=== PATIENT | female | born 1950 | race African-American/Black ===

== ENCOUNTER 2017-11-03 11:07 | Inpatient (IN) | payer MEDICAID, MEDICARE ==
[~2017-11-03] VITALS: Ht 167.6 cm; Wt 126.4 kg
--- NOTE | 2017-11-03 11:19 | Emergency Room Report ---
History of Present Illness General Chief Complaint: Chest Pain Source: Patient, Family Member, EMS Present Illness HPI Patient was in transport from [place] to nursing facility close by to this hospital patient complaint of midsternal chest pain At this time patient appears mildly lethargic and slow to respond however is more interactive with family Patient was given nitroglycerin by paramedics Denies any vomiting or diarrhea history of present illness otherwise Fairly limited as the patient herself is not able to provide any clear history Daughter is here and reports the patient does have history of CHF No obvious fevers recently Allergies: Coded Allergies: CEFEPIME (Unverified Allergy, Unknown, 11/03/17) LEVOFLOXACIN (Unverified Allergy, Unknown, 11/03/17) PENICILLINS (Unverified Allergy, Unknown, 11/03/17) Patient History Limited by: medical condition Past Medical History: see triage record Pertinent Family History: none Reviewed Nursing Documentation: PMH: Agreed; PSxH: Agreed Nursing Documentation-PMH Past Medical History: No History, Except For Hx Hypertension: Yes Hx Asthma: No - OBESITY Hx COPD: Yes Hx Cancer: Yes - RT BREAST Hx Gastrointestinal Problems: Yes - GERD Hx Dialysis: No - HYPERPARATHYROIDISM Hx Cerebrovascular Accident: Yes - CEREBRAL ANEURYSM, LEFT SIDE WEAKNESS Hx Seizures: No - ENCEPHALOPATHY Review of Systems All Other Systems: limited - Other than the ones mentioned in the history of present illness all others are reviewed however they do stay limited due to the patient's mental status Physical Exam Vital Signs Date Time Temp Pulse Resp B/P (MAP) Pulse Ox O2 Delivery O2 Flow Rate FiO2 11/03/17 11:01 98.9 110 20 113/68 99 Nasal Cannula 99.0 Sp02 EP Interpretation: reviewed, normal General Appearance: mild distress - Appears somet confused Head: normocephalic, atraumatic Eyes: bilateral eye PERRL, bilateral eye EOMI ENT: normal pharynx, no angioedema Neck: full range of motion, supple Respiratory: crackles - In both lower lobes Cardiovascular #1: regular rate, rhythm, other - Mild dependent edema bilaterally Gastrointestinal: other - Patient is obese, no obvious reproducble abdominal pain however difficult secondary to body habitus Musculoskeletal: other - Patient does not follow all command, however moves both upper extremities w Neurologic: responsive, other - Difficult musculoskeletaexam, patient is awake and verbal with family, however appear sluggish compared to her usual Skin: no rash Lymphatic: no adenopathy Medical Decision Making Diagnostic Impression: Primary Impression: ACS (acute coronary syndrome) ER Course Patient is a fairly complex patient with multiple differential to consideration including but not limited to cardiac cardiopulmonary and vascular emergencies Patient's baseline blood work appear appropriate Troponin is negative X-ray shows some mild crowding in the lower lobes uncertain acuity Patient has done better with breathing treatments at this time requires further inpatient care Labs Test 11/03/17 11:25 White Blood Count 7.8 K/UL (4.8-10.8) Red Blood Count 4.06 M/UL (4.20-5.40) Hemoglobin 11.6 G/DL (12.0-16.0) Hematocrit 36.0 % (37.0-47.0) Mean Corpuscular Volume 89 FL (80-99) Mean Corpuscular Hemoglobin 28.7 PG (27.0-31.0) Mean Corpuscular Hemoglobin Concent 32.3 G/DL (32.0-36.0) Red Cell Distribution Width 17.2 % (11.6-14.8) Platelet Count 430 K/UL (150-450) Mean Platelet Volume 6.4 FL (6.5-10.1) Neutrophils (%) (Auto) 57.5 % (45.0-75.0) Lymphocytes (%) (Auto) 27.6 % (20.0-45.0) Monocytes (%) (Auto) 11.3 % (1.0-10.0) Eosinophils (%) (Auto) 2.0 % (0.0-3.0) Basophils (%) (Auto) 1.6 % (0.0-2.0) Sodium Level 138 MMOL/L (136-145) Potassium Level 4.3 MMOL/L (3.5-5.1) Chloride Level 103 MMOL/L (98-107) Carbon Dioxide Level 25 MMOL/L (21-32) Anion Gap 10 mmol/L (5-15) Blood Urea Nitrogen 7 mg/dL (7-18) Creatinine 0.5 MG/DL (0.55-1.30) Estimat Glomerular Filtration Rate > 60 mL/min (>60) Glucose Level 92 MG/DL (74-106) Calcium Level 8.6 MG/DL (8.5-10.1) Total Bilirubin 0.8 MG/DL (0.2-1.0) Aspartate Amino Transf (AST/SGOT) 33 U/L (15-37) Alanine Aminotransferase (ALT/SGPT) 26 U/L (12-78) Alkaline Phosphatase 110 U/L (46-116) Total Creatine Kinase 54 U/L (26-308) Creatine Kinase MB < 0.5 NG/ML (0.0-3.6) Creatine Kinase MB Relative Index 0.9 Troponin I 0.000 ng/mL (0.000-0.056) Pro-B-Type Natriuretic Peptide 205 pg/mL (0-125) Total Protein 7.0 G/DL (6.4-8.2) Albumin 2.0 G/DL (3.4-5.0) Globulin 5.0 g/dL Albumin/Globulin Ratio 0.4 (1.0-2.7) Lipase 74 U/L (73-393) EKG Diagnostic Results Rate: normal Rhythm: NSR ST Segments: no acute changes Rhythm Strip Diag. Results EP Interpretation: yes Rate: 78 Rhythm: NSR, no PVC's, no ectopy Chest X-Ray Diagnostic Results Chest X-Ray Diagnostic Results : Chest X-Ray Ordered: Yes Indication: Chest Pain EP Interpretation: Yes Interpretation: no consolidation, no pneumothorax, other - Mild bilateral lower lobe atelectasis Impression: No acute disease Electronically Signed by: Aurora Hensley DO Last Vital Signs Date Time Temp Pulse Resp B/P (MAP) Pulse Ox O2 Delivery O2 Flow Rate FiO2 11/03/17 11:01 98.9 110 20 113/68 99 Nasal Cannula 99.0 Status: improved Disposition: ADMITTED INPATIENT Condition: Serious Aurora Hensley DO Nov 03, 2017 11:19
[2017-11-03] MEDS ORDERED: Albuterol ud Inhalation HHN ONE ×2 (11:30→13:00)
[2017-11-03 11:46] VITALS: BP 116/67
[2017-11-03 11:56] LABS: BASOPHILS % (AUTO) 1.6 % (0.0-2.0); HEMOGLOBIN 11.6 G/DL (12.0-16.0); LYMPHOCYTES % (AUTO) 27.6 % (20.0-45.0); MEAN CORPUSCULAR VOLUME 89 FL (80-99); MONOCYTES % (AUTO) 11.3 % (1.0-10.0); NEUTROPHILS % (AUTO) 57.5 % (45.0-75.0); PLATELET COUNT 430 K/UL (150-450); RED BLOOD COUNT 4.06 M/UL (4.20-5.40); RED CELL DISTRIBUTION WIDTH 17.2 % (11.6-14.8); WHITE BLOOD COUNT 7.8 K/UL (4.8-10.8)
[2017-11-03 12:11] LABS: ANION GAP 10 mmol/L (5-15); BLOOD UREA NITROGEN 7 mg/dL (7-18); CALCIUM 8.6 MG/DL (8.5-10.1); CARBON DIOXIDE 25 MMOL/L (21-32); CHLORIDE 103 MMOL/L (98-107); CREATININE 0.5 MG/DL (0.55-1.30); POTASSIUM 4.3 MMOL/L (3.5-5.1); SODIUM 138 MMOL/L (136-145)
[2017-11-03 12:26] LABS: ALANINE AMINOTRANSFERASE 26 U/L (12-78); ALBUMIN/GLOBULIN RATIO 0.4 (1.0-2.7); ALKALINE PHOSPHATASE 110 U/L (46-116); ASPARTATE AMINO TRANSFERASE 33 U/L (15-37); BILIRUBIN,TOTAL 0.8 MG/DL (0.2-1.0); CKMB < 0.5 NG/ML (0.0-3.6); CREATINE KINASE 54 U/L (26-308)
[2017-11-03] MEDS ORDERED: ASPIRIN EC325 MG ORAL (12:33)
[2017-11-03] MEDS ORDERED: ACETAMINOPHEN325 M1 ORAL (12:33)
[2017-11-03] MEDS ORDERED: VITAMIN D1000 UNI1 ORAL (12:33)
[2017-11-03] MEDS ORDERED: BISACODYL10 M1 RC (12:33)
[2017-11-03] MEDS ORDERED: CYMBALTA60 MG ORAL (12:33)
[2017-11-03] MEDS ORDERED: CARVEDILOL6.25 MG ORAL (12:33)
[2017-11-03] MEDS ORDERED: AMLODIPINE BESYL5 MG ORAL (12:33)
[2017-11-03] MEDS ORDERED: CLONIDINE1 EAC1 TD (12:33)
[2017-11-03] MEDS ORDERED: SENSIPAR30 MG ORAL (12:33)
[2017-11-03] MEDS ORDERED: AMANTADINE100 M2 ORAL (12:33)
[2017-11-03] MEDS ORDERED: MAG-OXIDE400 M1 PO (12:41)
[2017-11-03] MEDS ORDERED: PNEUMOVAX25 MCG/0.5 IJ (12:41)
[2017-11-03] MEDS ORDERED: SENNA-DOCUSATE1 EACH PO (12:41)
[2017-11-03] MEDS ORDERED: ZOFRAN4 M1 ORAL (12:41)
[2017-11-03] MEDS ORDERED: LACTULOSE10 GM/153 PO (12:41)
[2017-11-03] MEDS ORDERED: PROMETHAZINE-D118 ML ORAL (12:41)
[2017-11-03] MEDS ORDERED: VIMPAT50 MG PO (12:41)
[2017-11-03] MEDS ORDERED: PREVNAR 13 SYR0.5 ML IM (12:41)
[2017-11-03] MEDS ORDERED: LEVETIRACETAM500 M1 ORAL (12:41)
[2017-11-03] MEDS ORDERED: FAMOTIDINE20 MG ORAL (12:41)
[2017-11-03] MEDS ORDERED: HEPARIN SO5000 UNIT2 SUBQ (12:41)
[2017-11-03] MEDS ORDERED: MONTELUKAST SOD10 MG ORAL (12:41)
[2017-11-03] MEDS ORDERED: FLUZONE HI180 MCG/08 IM (12:41)
[2017-11-03] MEDS ORDERED: NORCO 10-325 T1 EACH ORAL (12:41)
[2017-11-03 13:06] VITALS: BP 126/74
[2017-11-03] MEDS ORDERED: Albuterol ud Inhalation ONE (13:20)
[2017-11-03] MEDS ORDERED: Vancomycin 1.5gm/D5W 250ml 250 ML IVPB ONE (14:15)
[2017-11-03] MEDS ORDERED: Aztreonam Inj 2 GM in D5W 110 ML IVPB ONE (14:15)
[2017-11-03] MEDS ORDERED: Azithromycin 500 MG in D5W 275 ML IVPB ONE (14:15)
[2017-11-03 15:27] VITALS: BP 109/82
[2017-11-03 16:00] VITALS: BP 115/60
[2017-11-03] MEDS ORDERED: Milk of Magnesia 30ml Ud ORAL PRN (16:25)
[2017-11-03] MEDS: Norco 5mg/325mg tab ORAL PRN (17:47)
[2017-11-03] MEDS: Azithromycin 250 MG in D5W 275 ML IV SCH (17:47)
[2017-11-03] MEDS: Albuterol/Ipratropium 3ml neb HHN SCH (19:37)
--- NOTE | 2017-11-03 19:45 | Consultation ---
DATE OF CONSULTATION: 11/03/2017 CARDIOLOGY CONSULTATION REQUESTING PHYSICIAN: Kenroy Mcgrath M.D. REASON FOR CONSULTATION: Chest pain. HISTORY OF PRESENT ILLNESS: This is an female, age 67, who was recently transported from [place] where she resides at a [facility] facility to live closer to her family here. On arrival, she complained of mid substernal chest pain, increasing cough, and shortness of breath. She has been somewhat more lethargic than her usual, but states she has been fatigued from the transport. She was given nitroglycerin by paramedics and did improve. I have been asked to assist with further cardiovascular care. History is obtained from the patient's family members. She apparently suffered a fall and head trauma incident about two years ago. At that time, she developed a subarachnoid bleed and apparently was noted to have an aneurysm that was partially repaired that resulted in left-sided weakness, progressive functional decline, and notably the patient has not walked for almost two years. Subsequently, the patient was noted to have right breast cancer and underwent mastectomy with lymph node dissections where up to 14 lymph nodes were found positive. The patient was treated with radiation, but not chemotherapy. She was to undergo repeat CT imaging in Oncology evaluation in the next month. PAST MEDICAL HISTORY: Further notable for hyperparathyroidism, hypertension, history of congestive heart failure, osteoarthritis, status post left total knee replacement, status post right hip replacement, and dysphagia due to loss of dentures. COPD. MEDICATIONS: Prior to admission, have been reviewed and reconciled. ALLERGIES: Include penicillin, Levaquin, and cefepime. SOCIAL HISTORY: She is a former smoker, greater than 30-pack years. FAMILY HISTORY: Noncontributory. REVIEW OF SYSTEMS: A 10-point review of systems performed. All pertinent data has been outlined in detail above. PHYSICAL EXAMINATION: GENERAL: The patient is well developed, well kempt, in no acute distress. VITAL SIGNS: Blood pressure 113/68, pulse 110, respirations 20, and afebrile. HEENT: Conjunctivae are pink. Sclerae are anicteric. Oropharynx clear. Edentulous gums. NECK: Supple. No adenopathy. LUNGS: With coarse breath sounds. Rhonchi. CARDIAC: Regular rhythm and rate. Distant S1 and S2. No murmur. BREASTS: Mastectomy scar clean and dry. ABDOMEN: Obese and soft with no focal tenderness or masses. EXTREMITIES: No edema. Left knee scar is noted, but there are nonpitting changes of the lower extremity seen. SKIN: Intact. NEUROLOGIC: Reveals severe weakness of the lower extremities. Mild left greater than right weakness. Otherwise, speech is fluent. DIAGNOSTIC DATA: Chest x-ray, mild lower lobe interstitial changes. Troponin negative. Chemistry panel and CBC within normal limits. EKG revealed sinus rhythm, nonspecific ST-T wave changes. IMPRESSION: 1. Possible healthcare-acquired pneumonia. 2. Possible acute coronary syndrome. 3. History of breast cancer status post radiation. 4. Immobility. 5. History of cerebrovascular accident with aneurysm. PLAN: 1. Cardiac monitoring. 2. Serial troponin. 3. Optimize antianginal and antihypertensive regimen. 4. Inhaled bronchodilators. 5. Empiric antibiotics. 6. Venous duplex. 7. CT of the chest. 8. Dysphagia protocol. 9. Further recommendations to follow. Carlos Eduardo Andino M.D. DR: Abdoul JOB#: [id number] CC:
[2017-11-03 20:00] VITALS: BP 113/67
[2017-11-03] MEDS ORDERED: Atorvastatin 20mg tab ORAL SCH (21:00)
[2017-11-03] MEDS: Heparin 5000 units/ml inj SUBQ SCH (22:10)
[2017-11-03] MEDS: Lacosamide 50mg tablet ORAL SCH (23:11)
[2017-11-03] MEDS: Carvedilol 6.25mg Tab ORAL SCH (23:12)
[2017-11-04] VITALS: BP 100/54
[2017-11-04] MEDS: Albuterol/Ipratropium 3ml neb HHN SCH ×4 (00:56→20:37)
[2017-11-04 04:00] VITALS: BP 104/62
[2017-11-04] MEDS: Heparin 5000 units/ml inj SUBQ SCH ×3 (06:25→21:08)
[2017-11-04 08:00] VITALS: BP 115/65
[2017-11-04] MEDS: Carvedilol 6.25mg Tab ORAL SCH ×2 (09:33→21:04)
[2017-11-04] MEDS: DULoxetine 30mg cap ORAL SCH (09:33)
[2017-11-04] MEDS: Lacosamide 50mg tablet ORAL SCH ×2 (09:34→21:05)
[2017-11-04] MEDS: Amantadine 100mg cap ORAL SCH (09:34)
[2017-11-04] MEDS: Sensipar 30mg Tab ORAL SCH (09:34)
--- NOTE | 2017-11-04 09:54 | Diagnostic Imaging Report ---
Indication: Chest pain Technique: One view of the chest Comparison: none Findings: There is atelectasis at the right lateral lung base. Lungs and pleural spaces are otherwise clear. The heart size is normal Impression: No acute process
[2017-11-04] MEDS ORDERED: Vancomycin 1250mg/D5W 250ml IVPB SCH (10:00)
[2017-11-04 10:01] LABS: BASOPHILS % (AUTO) 1.2 % (0.0-2.0); EOSINOPHILS % (AUTO) 1.8 % (0.0-3.0); HEMATOCRIT 31.2 % (37.0-47.0); HEMOGLOBIN 10.5 G/DL (12.0-16.0); LYMPHOCYTES % (AUTO) 16.4 % (20.0-45.0); MEAN CORPUSCULAR VOLUME 88 FL (80-99); MONOCYTES % (AUTO) 10.6 % (1.0-10.0); NEUTROPHILS % (AUTO) 70.1 % (45.0-75.0); PLATELET COUNT 314 K/UL (150-450); RED BLOOD COUNT 3.55 M/UL (4.20-5.40); WHITE BLOOD COUNT 7.4 K/UL (4.8-10.8)
[2017-11-04 11:14] LABS: CHOLESTEROL 88 MG/DL (< 200); CREATINE KINASE 12 U/L (26-308); HDL CHOLESTEROL 49 MG/DL (40-60); TRIGLYCERIDES 76 MG/DL (30-150)
--- NOTE | 2017-11-04 11:15 | History and Physical Report ---
DATE OF ADMISSION: 11/03/2017 CHIEF COMPLAINT: Chest pain. HISTORY OF PRESENT ILLNESS: The patient is a pleasant, unfortunate 67-year-old female. She has prior history of intracranial bleed, stroke, seizure disorder, breast cancer, status post mastectomy, congestive heart failure, and COPD. She recently transferred from [facility] to [place] to be with family members. She has had a complicated past medical history which includes prior history of intracranial bleed and stroke. She was found to have an aneurysm that was coiled. She was diagnosed with breast cancer and underwent right-sided mastectomy. She did have multiple positive nodes and apparently received radiation, but no additional chemotherapy. She developed chest pain and presented to the emergency room. On initial evaluation there, her initial cardiac enzymes were unremarkable. In light of her complicated extensive past medical history, she is now admitted for further evaluation and care. She is currently chest pain-free. She denies any fever or chills. She has had no cough. PAST MEDICAL HISTORY: As above. She has history of seizure disorder, hypertension, history of DVT, sepsis, IVC filter, and hyperparathyroidism. CURRENT MEDICATIONS: Reconciled and reviewed. ALLERGIES: Include penicillin, Levaquin, and cefepime. SOCIAL HISTORY: There is no known history of tobacco, ethanol, or drugs. FAMILY HISTORY: Noncontributory. REVIEW OF SYSTEMS: GENERAL: No fever or chills. HEENT: No headaches or visual changes. CARDIOPULMONARY: Positive chest pain. No shortness of breath. No cough. GASTROINTESTINAL: No nausea or vomiting. GENITOURINARY: No urgency or frequency. MUSCULOSKELETAL: No joint pain or swelling noted. NEUROLOGIC: Positive history of stroke, intracranial bleed, aneurysm, and seizures. PHYSICAL EXAMINATION: VITAL SIGNS: Temperature 98 degrees, pulse 85, respirations 20, and blood pressure 104/62. GENERAL: The patient is a well-developed female, in no apparent distress. She is currently resting. She is easily arousable. NECK: Supple. There are no carotid bruits. HEART: Regular rate and rhythm. LUNGS: Clear. ABDOMEN: Soft, nontender, and nondistended. EXTREMITIES: Without clubbing or cyanosis. There is trace edema noted. She has generalized weakness, left greater than right. LABORATORY AND DIAGNOSTIC DATA: Chest x-ray was clear. Sodium 138, potassium 4.3, chloride 103, bicarbonate 25, BUN 7, and creatinine 0.5. Troponin was negative. Lipase was normal. White count 7, hemoglobin 11, hematocrit 36, and platelet count of 430,000. ASSESSMENT: This is a pleasant female admitted with complaints of chest pain. PROBLEM LIST: 1. Chest pain. 2. History of DVT, status post IVC filter. 3. History of breast cancer. 4. History of brain aneurysm and intracranial bleed. 5. Stroke. 6. Seizure disorder. 7. Hypertension. PLAN: Admit to monitored bed. Serial enzymes and EKGs. Titrate antihypertensive regimen. Followup CT scan. Consider bone scan. Check urinalysis. Continue seizure medications. Cardiology consultation has already been obtained. Kenroy Mcgrath M.D. DR: Earnestine JOB#: [id number] CC:
--- NOTE | 2017-11-04 12:30 | Progress Note ---
DATE: 11/04/2017 CARDIOLOGY PROGRESS NOTE SUBJECTIVE: The patient is uncomfortable and in distress due to poor IV access and repeated attempts at Hep-Lock placement. OBJECTIVE: VITAL SIGNS: She is afebrile, blood pressure 115/65, pulse 94, respiratory rate 20. LUNGS: Diminished breath sounds. No wheezing. HEART: Regular rhythm and rate. Normal S1, S2. ABDOMEN: Soft, obese. EXTREMITIES: With trace edema. LABORATORY AND DIAGNOSTIC DATA: Chest x-ray on admission revealed no acute process. White count 7.4, hemoglobin 10.5, MCV 88. Troponins are negative. Total cholesterol is 88. IMPRESSION AND PLAN: 1. Acute coronary syndrome, now stabilized. 2. Significantly decreased cholesterol levels, on atorvastatin. 3. History of breast cancer. 4. Healthcare-acquired pneumonia, aspiration risk. 5. anemia. PLAN: 1. Decrease atorvastatin dose. 2. Optimize antianginal and antihypertensive regimen. 3. Await CAT scan of the chest. 4. Continue antibiotics and respiratory hygiene. 5. Follow up venous duplex scan results and echocardiogram. 6. Family discussing disposition at this time. Carlos Eduardo Andino M.D. : [place] JOB#: [id number] CC:
[2017-11-04] MEDS: Aspirin Baby 81mg NG SCH (12:45)
[2017-11-04] MEDS ORDERED: Heparin 2000 units/Ns 1000ml INJ ONE (12:53)
[2017-11-04] MEDS ORDERED: Lidocaine 1% Plain 30 ml INJ ONE (12:53)
[2017-11-04] MEDS ORDERED: Tubing IV Secondary IV ONE (12:58)
[2017-11-04] MEDS ORDERED: NS 275ml ONE (12:58)
[2017-11-04] MEDS ORDERED: Vancomycin 1.5 GM/D5W 250ML IVPB SCH (15:00)
--- NOTE | 2017-11-04 15:38 | Diagnostic Imaging Report ---
Indications: Needs long-term IV access Technique: Ultrasound confirms patent compressible left basilic vein. Total sterile technique, including sterile probe cover and sterile gel, hat, mask,, sterile gown, large sterile drape, and preparation with 2% chlorhexidine utilized. Local anesthesia with 1% lidocaine. Under real-time ultrasound guidance, puncture basilic vein using 21-gauge needle, documented and archived, passage 0.018 guidewire under direct fluoroscopy, which was used to determine appropriate catheter length, exchange for 5 Telugu peel-away sheath. 5 Telugu Bard dual-lumen power PICC cut to 45 cm. It was inserted through the peel-away sheath. Peel-away sheath and guidewire removed. Catheter fixed to the skin. Both catheter ports aspirated and flushed. Patient tolerated procedure well, without immediate complication. Digital radiograph documents satisfactory catheter tip position, at the cavoatrial junction. Total fluoroscopy time 0.3 minutes. Total dose area product 9 dGycm2 Impression: Successful placement of left arm PICC under sonographic and fluoroscopic guidance, as described above.
[2017-11-04 16:00] VITALS: BP 131/77
[2017-11-04] MEDS: guaiFENesin 100mg/5ml Liq ud ORAL PRN ×2 (16:36→21:09)
[2017-11-04] MEDS: Vancomycin 1250mg/D5W 250ml IVPB SCH (16:41)
[2017-11-04] MEDS: Azithromycin 250 MG in D5W 275 ML IV SCH (18:34)
[2017-11-04] MEDS: Norco 5mg/325mg tab ORAL PRN (19:17)
[2017-11-04 20:00] VITALS: BP 129/74
[2017-11-04] MEDS: Dyna-Hex 2% Top Sol 2oz TOPIC SCH (21:03)
[2017-11-05] VITALS (7 sets, daily range): BP systolic 96–118; BP diastolic 58–78
[2017-11-05] MEDS: Albuterol/Ipratropium 3ml neb HHN SCH ×4 (01:13→19:36)
[2017-11-05] MEDS: Vancomycin 1250mg/D5W 250ml IVPB SCH ×2 (04:00→16:36)
[2017-11-05] MEDS: Heparin 5000 units/ml inj SUBQ SCH ×3 (05:24→22:52)
[2017-11-05] MEDS: guaiFENesin 100mg/5ml Liq ud ORAL PRN ×2 (05:36→13:13)
--- NOTE | 2017-11-05 05:59 | General Progress Note ---
Assessment/Plan Problem List: (1) CVA (cerebral vascular accident) ICD Codes: I63.9 - Cerebral infarction, unspecified SNOMED: 724302189 (2) DVT (deep vein thrombosis) in ICD Codes: O22.30 - Deep phlebothrombosis in , unspecified trimester; I82.409 - Acute embolism and thrombosis of unspecified deep veins of unspecified lower extremity SNOMED: 03335457, 581383235 (3) Seizure ICD Codes: R56.9 - Unspecified convulsions SNOMED: 27109903 (4) Neuropathy ICD Codes: G62.9 - Polyneuropathy, unspecified SNOMED: 301968758 (5) Functional quadriplegia ICD Codes: R53.2 - Functional quadriplegia SNOMED: 134758159886009 (6) ACS (acute coronary syndrome) ICD Codes: I24.9 - Acute ischemic heart disease, unspecified SNOMED: 812676985 Status: stable, progressing Assessment/Plan pain meds increased video swallow kub to check for ivc filter sz rx Subjective ROS Limited/Unobtainable: No Constitutional: Reports: malaise, weakness HEENT: Reports: no symptoms Cardiovascular: Reports: no symptoms Respiratory: Reports: cough Gastrointestinal/Abdominal: Reports: no symptoms Genitourinary: Reports: no symptoms Neurologic/Psychiatric: Reports: paresthesia Endocrine: Reports: no symptoms Hematologic/Lymphatic: Reports: no symptoms Allergies: Coded Allergies: CEFEPIME (Unverified Allergy, Unknown, 11/03/17) LEVOFLOXACIN (Unverified Allergy, Unknown, 11/03/17) PENICILLINS (Unverified Allergy, Unknown, 11/03/17) All Systems: reviewed and negative except above Subjective no events. c/o cough and congestion. c/o pain in legs. not relieved with norco. pema with chronic dvt. video swallow recommended by speech Objective Last 24 Hour Vital Signs Date Time Temp Pulse Resp B/P (MAP) Pulse Ox O2 Delivery O2 Flow Rate FiO2 11/05/17 04:00 83 11/05/17 04:00 96.2 80 20 110/60 98 96.2 11/05/17 01:23 92 20 99 Nasal Cannula 2.0 28 11/05/17 01:14 80 20 96 Nasal Cannula 2.0 28 11/05/17 00:00 82 11/05/17 00:00 97.9 83 20 105/58 99 97.9 11/04/17 21:04 88 131/77 11/04/17 20:00 91 11/04/17 20:00 97.4 62 19 129/74 96 97.4 11/04/17 19:11 102 24 99 Nasal Cannula 2.0 28 11/04/17 19:08 82 20 96 Nasal Cannula 2.0 28 11/04/17 19:02 Nasal Cannula 2.0 28 11/04/17 19:02 96 Nasal Cannula 2.0 28 11/04/17 16:00 98.1 64 18 131/77 98 98.1 11/04/17 16:00 88 11/04/17 14:10 86 18 99 Nasal Cannula 2.0 28 11/04/17 14:00 87 18 99 Nasal Cannula 2.0 28 11/04/17 12:00 81 11/04/17 09:33 93 115/65 11/04/17 08:00 97.6 93 20 115/65 99 97.6 11/04/17 08:00 Nasal Cannula 2.0 11/04/17 08:00 94 11/04/17 08:00 89 20 98 Nasal Cannula 2.0 28 11/04/17 08:00 Nasal Cannula 2.0 28 11/04/17 08:00 98 Nasal Cannula 2.0 28 Intake and Output 11/04/17 11/05/17 19:00 07:00 Intake Total 800 ml Balance 800 ml Intake Oral 800 ml # Voids 4 # Bowel Movements 2 Laboratory Tests 11/04/17 07:52: White Blood Count 7.4, Red Blood Count 3.55L, Hemoglobin 10.5L, Hematocrit 31.2L , Mean Corpuscular Volume 88, Mean Corpuscular Hemoglobin 29.7, Mean Corpuscular Hemoglobin Concent 33.8, Red Cell Distribution Width 17.0H, Platelet Count 314, Mean Platelet Volume 5.2L, Neutrophils (%) (Auto) 70.1, Lymphocytes (%) (Auto) 16.4L, Monocytes (%) (Auto) 10.6H, Eosinophils (%) (Auto ) 1.8, Basophils (%) (Auto) 1.2, Total Creatine Kinase 12L, Troponin I 0.000, Triglycerides Level 76, Cholesterol Level 88, LDL Cholesterol 27, HDL Cholesterol 49, Cholesterol/HDL Ratio 1.8L, Thyroid Stimulating Hormone (TSH) 1.006 Height (Feet): 5 Height (Inches): 6.00 Weight (Pounds): 278 General Appearance: WD/WN, alert Neck: supple Cardiovascular: regular rhythm Respiratory/Chest: chest wall non-tender, lungs clear, normal breath sounds Abdomen: normal bowel sounds, non tender, soft, no organomegaly Edema: no edema noted Arm (L), no edema noted Arm (R), no edema noted Leg (L), no edema noted Leg (R), no edema noted Pedal (L), no edema noted Pedal (R), no edema noted Generalized Neurologic: food tester II-XII grossly normal KELVIN CHANG Nov 05, 2017 05:59
--- NOTE | 2017-11-05 09:15 | Diagnostic Imaging Report ---
Indication: Deep venous thrombosis, assessment for inferior vena cava filter. Abdominal pain Technique: Supine view of the abdomen Comparison: none Findings: There is a removable inferior vena cava filter in expected position of the infrarenal inferior vena cava. No evidence of fracture or significant tilt. Bowel gas pattern is unremarkable. There is a right hip prosthesis. There are degenerative changes of left hip Impression: Removable inferior vena cava filter is in the expected position No acute process
[2017-11-05] MEDS: Lacosamide 50mg tablet ORAL SCH ×2 (09:20→20:29)
[2017-11-05] MEDS: DULoxetine 30mg cap ORAL SCH (09:20)
[2017-11-05] MEDS: Amantadine 100mg cap ORAL SCH (09:20)
[2017-11-05] MEDS: Aspirin Baby 81mg NG SCH (09:21)
[2017-11-05] MEDS: Carvedilol 6.25mg Tab ORAL SCH ×2 (09:22→20:30)
[2017-11-05] MEDS: Sensipar 30mg Tab ORAL SCH (09:22)
[2017-11-05] MEDS: Norco 5mg/325mg tab ORAL PRN (09:41)
[2017-11-05 11:50] LABS: BASOPHILS % (AUTO) 1.6 % (0.0-2.0); EOSINOPHILS % (AUTO) 1.6 % (0.0-3.0); HEMATOCRIT 31.3 % (37.0-47.0); HEMOGLOBIN 10.3 G/DL (12.0-16.0); LYMPHOCYTES % (AUTO) 17.3 % (20.0-45.0); MEAN CORPUSCULAR VOLUME 90 FL (80-99); MONOCYTES % (AUTO) 11.7 % (1.0-10.0); NEUTROPHILS % (AUTO) 67.8 % (45.0-75.0); PLATELET COUNT 301 K/UL (150-450); RED CELL DISTRIBUTION WIDTH 16.8 % (11.6-14.8); WHITE BLOOD COUNT 6.7 K/UL (4.8-10.8)
[2017-11-05 12:07] LABS: ALANINE AMINOTRANSFERASE 23 U/L (12-78); ALBUMIN 1.7 G/DL (3.4-5.0); ALBUMIN/GLOBULIN RATIO 0.4 (1.0-2.7); ALKALINE PHOSPHATASE 107 U/L (46-116); ANION GAP 6 mmol/L (5-15); ASPARTATE AMINO TRANSFERASE 16 U/L (15-37); BILIRUBIN,TOTAL 0.6 MG/DL (0.2-1.0); BLOOD UREA NITROGEN 4 mg/dL (7-18); CALCIUM 8.1 MG/DL (8.5-10.1); CARBON DIOXIDE 28 MMOL/L (21-32); CHLORIDE 103 MMOL/L (98-107); CREATININE 0.6 MG/DL (0.55-1.30); POTASSIUM 2.9 MMOL/L (3.5-5.1); SODIUM 137 MMOL/L (136-145)
--- NOTE | 2017-11-05 13:51 | Diagnostic Imaging Report ---
Indication: Chest pain, shortness of breath, history of breast carcinoma, history of abnormal recent chest radiograph Technique: Spiral acquisitions obtained through the chest pre- and post-IV contrast administration Multiplanar reconstructions were generated. High-resolution 1 mm thick slices were also reconstructed at 10 mm intervals from the precontrast image set. Total dose length product 1935.77 mGycm. CTDIvol(s) 29.21,27.17 mGy. Radiation dose was minimized using automated exposure in the superior left upper lobe. Some atelectasis is seen in the left costophrenic sulcus. Control Comparison: none Findings: Lungs demonstrate reticular and confluent opacities at the right lung base within the right lower lobe. There appears to be some associated volume loss. There is trace pleural fluid. Some reticular opacities are seen posterior in the right upper lobe. Small bullae and generalized hyperinflation are seen in the bilateral upper lobes. A few bullae are also seen in the left lower lobe Small irregular subpleural opacity is seen in the left costophrenic sulcus. On the high-resolution images, generalized interstitial septal thickening is not demonstrated, and there are no findings to suggest bronchiectasis, generalized nodularity or honeycombing. The hyperinflation and bullous changes appear more striking on the high-resolution images. No mediastinal or hilar adenopathy demonstrated. The heart size is normal. No pericardial effusion. The included portions of the thyroid are unremarkable. There is a left arm PICC in place. There is evidence of prior right breast surgery. No evidence of recurrent tumor. The bones are unremarkable. Included upper abdominal anatomy demonstrates multiple hepatic cysts as well as multiple hepatic subcentimeter low-attenuation lesions which are too small to characterize. 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 The right kidney demonstrates a small upper pole cyst. The left kidney demonstrates a small upper pole cyst. There are bilateral adrenal nodules, that on the right measuring 14 mm in diameter, that on the left also measuring 14 mm and diameter. These demonstrate nonspecific attenuation. Impression: Right lower lobe parenchymal disease, as described. This may reflect acute infiltrate, confluent chronic fibrotic changes, or a combination of both. Nonspecific reticular opacities in the posterior right upper lobe. Likewise may represent acute inflammatory change or chronic fibrotic change. Trace right pleural effusion Evidence of COPD, with bilateral hyperinflation and small bullae No evidence of generalized interstitial disease Evidence of prior right breast surgery. Left arm PICC Bilateral adrenal nodules. Most likely but not definitively benign adenomas. Consider follow-up CT or MRI imaging with adrenal protocol, particularly if there is concern for metastatic breast tumor Renal and hepatic cysts. Additional multiple subcentimeter low-attenuation hepatic lesions which are too small to characterize, most likely benign simple cysts. No further follow-up needed The CT scanner at [facility] is accredited by the [employer] and the scans are performed using protocols designed to limit radiation exposure to as low as reasonably achievable to attain images of sufficient resolution adequate for diagnostic evaluation.
[2017-11-05] MEDS: Azithromycin 250 MG in D5W 275 ML IV SCH (19:00)
[2017-11-05] MEDS: Dyna-Hex 2% Top Sol 2oz TOPIC SCH (20:28)
[2017-11-05] MEDS: oxyCODONE HCL/Acetaminophen 5/325mg ORAL PRN (20:29)
[2017-11-06] VITALS: BP 96/48
[2017-11-06] MEDS: Albuterol/Ipratropium 3ml neb HHN SCH ×4 (01:00→19:42)
--- NOTE | 2017-11-06 02:00 | Progress Note ---
DATE: 11/05/2017 CARDIOLOGY PROGRESS NOTE SUBJECTIVE: The patient has cough and congestion, leg pain, but no chest pain. OBJECTIVE: VITAL SIGNS: Blood pressure 110/60, heart rate 80, and respiratory rate 20. LUNGS: Clear. CARDIAC: Regular. Normal S1, S2. ABDOMEN: Soft. EXTREMITIES: With nonpitting edema. LABORATORY AND DIAGNOSTIC DATA: Venous duplex reveals a chronic DVT. White count is 6.7, hemoglobin 10.3. Potassium 2.9. Albumin 1.7. B12 2500. Folate only 4.5. IMPRESSION: 1. Hypokalemia. 2. Folate deficiency. 3. Chronic deep venous thrombosis. 4. History of breast cancer. 5. Persistent cough. 6. Healthcare acquired pneumonia, possible aspiration. 7. Pleuritic chest pain. 8. Severe protein-calorie malnutrition. PLAN: Replace potassium. Check magnesium. Replace folate. CT scan of the chest pending. Protein supplement. Antimicrobials. Respiratory hygiene. Swallow evaluation. Carlos Eduardo Andino M.D. DR: Emanuel JOB#: [id number] CC:
[2017-11-06 04:00] VITALS: BP 135/56
[2017-11-06] MEDS: Vancomycin 1250mg/D5W 250ml IVPB SCH ×2 (04:00→16:42)
[2017-11-06] MEDS: Heparin 5000 units/ml inj SUBQ SCH ×3 (06:23→21:34)
--- NOTE | 2017-11-06 07:48 | General Progress Note ---
Assessment/Plan Problem List: (1) CVA (cerebral vascular accident) ICD Codes: I63.9 - Cerebral infarction, unspecified SNOMED: 441794138 (2) DVT (deep vein thrombosis) in ICD Codes: O22.30 - Deep phlebothrombosis in , unspecified trimester; I82.409 - Acute embolism and thrombosis of unspecified deep veins of unspecified lower extremity SNOMED: 12845336, 231715962 (3) Seizure ICD Codes: R56.9 - Unspecified convulsions SNOMED: 95830077 (4) Neuropathy ICD Codes: G62.9 - Polyneuropathy, unspecified SNOMED: 058894997 (5) Functional quadriplegia ICD Codes: R53.2 - Functional quadriplegia SNOMED: 078234814513860 (6) ACS (acute coronary syndrome) ICD Codes: I24.9 - Acute ischemic heart disease, unspecified SNOMED: 527106694 Status: stable Assessment/Plan pain meds increased video swallow iv abx broadened id eval kub to check for ivc filter sz rx Subjective ROS Limited/Unobtainable: No Constitutional: Reports: malaise, weakness HEENT: Reports: no symptoms Cardiovascular: Reports: no symptoms Respiratory: Reports: shortness of breath Gastrointestinal/Abdominal: Reports: abdominal pain Genitourinary: Reports: no symptoms Neurologic/Psychiatric: Reports: pre-existing deficit Endocrine: Reports: no symptoms Hematologic/Lymphatic: Reports: no symptoms Allergies: Coded Allergies: CEFEPIME (Unverified Allergy, Unknown, 11/03/17) LEVOFLOXACIN (Unverified Allergy, Unknown, 11/03/17) PENICILLINS (Unverified Allergy, Unknown, 11/03/17) All Systems: reviewed and negative except above Subjective c/o severe leg pain. added percocet- pain not controlled with norco. ct noted- ? right sided infiltrate vs scar. +ivc filter on kub Objective Last 24 Hour Vital Signs Date Time Temp Pulse Resp B/P (MAP) Pulse Ox O2 Delivery O2 Flow Rate FiO2 11/06/17 04:00 96 11/06/17 04:00 98.1 95 18 135/56 96 98.1 11/06/17 01:19 Nasal Cannula 2.0 28 11/06/17 01:19 Nasal Cannula 2.0 28 4/25/18 00:00 83 11/06/17 00:00 97.0 84 16 96/48 97 Nasal Cannula 97.0 11/05/17 20:30 85 118/78 11/05/17 20:00 86 11/05/17 20:00 98.1 85 18 118/78 98 Nasal Cannula 98.1 11/05/17 19:17 93 22 100 Nasal Cannula 2.0 28 11/05/17 19:12 100 Nasal Cannula 2.0 28 11/05/17 19:12 Nasal Cannula 2.0 28 11/05/17 19:12 87 22 100 Nasal Cannula 2.0 28 11/05/17 16:00 83 11/05/17 16:00 97.8 85 18 107/67 98 Nasal Cannula 97.8 11/05/17 13:28 Nasal Cannula 11/05/17 13:27 Nasal Cannula 11/05/17 12:00 97.8 90 18 115/59 97 Nasal Cannula 97.8 11/05/17 12:00 88 11/05/17 10:38 97.9 82 17 96/76 95 Nasal Cannula 97.9 11/05/17 09:22 82 96/76 11/05/17 08:00 89 11/05/17 08:00 97.9 82 17 96/76 95 Room Air 97.9 Intake and Output 11/05/17 11/06/17 19:00 07:00 Intake Total 650 ml Balance 650 ml Other 650 ml # Voids 2 2 Laboratory Tests 11/05/17 11:25: White Blood Count 6.7, Red Blood Count 3.50L, Hemoglobin 10.3L, Hematocrit 31.3L , Mean Corpuscular Volume 90, Mean Corpuscular Hemoglobin 29.3, Mean Corpuscular Hemoglobin Concent 32.7, Red Cell Distribution Width 16.8H, Platelet Count 301, Mean Platelet Volume 5.8L, Neutrophils (%) (Auto) 67.8, Lymphocytes (%) (Auto) 17.3L, Monocytes (%) (Auto) 11.7H, Eosinophils (%) (Auto ) 1.6, Basophils (%) (Auto) 1.6, Sodium Level 137, Potassium Level 2.9L, Chloride Level 103, Carbon Dioxide Level 28, Anion Gap 6, Blood Urea Nitrogen 4L , Creatinine 0.6, Estimat Glomerular Filtration Rate > 60, Glucose Level 119H, Calcium Level 8.1L, Total Bilirubin 0.6, Aspartate Amino Transf (AST/SGOT) 16, Alanine Aminotransferase (ALT/SGPT) 23, Alkaline Phosphatase 107, Total Protein 6.0L, Albumin 1.7L, Globulin 4.3, Albumin/Globulin Ratio 0.4L, Vitamin B12 Level 2576H, Folate 4.5L Height (Feet): 5 Height (Inches): 6.00 Weight (Pounds): 274 Objective General Appearance: WD/WN, alert Neck: supple Cardiovascular: regular rhythm Respiratory/Chest: chest wall non-tender, lungs clear, normal breath sounds Abdomen: normal bowel sounds, non tender, soft, no organomegaly Edema: no edema noted Arm (L), no edema noted Arm (R), no edema noted Leg (L), no edema noted Leg (R), no edema noted Pedal (L), no edema noted Pedal (R), no edema noted 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
[2017-11-06 08:00] VITALS: BP 110/67
[2017-11-06] MEDS: oxyCODONE HCL/Acetaminophen 5/325mg ORAL PRN ×2 (08:19→18:22)
[2017-11-06] MEDS: Sensipar 30mg Tab ORAL SCH (09:37)
[2017-11-06] MEDS: Amantadine 100mg cap ORAL SCH (09:38)
[2017-11-06] MEDS: Carvedilol 6.25mg Tab ORAL SCH ×2 (09:38→21:33)
[2017-11-06] MEDS: DULoxetine 30mg cap ORAL SCH (09:38)
[2017-11-06] MEDS: Aspirin Baby 81mg NG SCH (09:39)
[2017-11-06] MEDS: Lacosamide 50mg tablet ORAL SCH ×2 (09:39→21:33)
[2017-11-06] MEDS: guaiFENesin 100mg/5ml Liq ud ORAL PRN ×2 (11:37→18:22)
[2017-11-06] MEDS: Aztreonam Inj 1 GM in D5W 55 ML IVPB SCH ×3 (11:38→21:43)
[2017-11-06 12:00] VITALS: BP 106/71
[2017-11-06 16:00] VITALS: BP 90/53
[2017-11-06 16:19] LABS: EOSINOPHILS % (AUTO) 2.9 % (0.0-3.0); HEMATOCRIT 29.7 % (37.0-47.0); HEMOGLOBIN 9.9 G/DL (12.0-16.0); LYMPHOCYTES % (AUTO) 29.6 % (20.0-45.0); MEAN CORPUSCULAR VOLUME 89 FL (80-99); MONOCYTES % (AUTO) 12.2 % (1.0-10.0); NEUTROPHILS % (AUTO) 54.4 % (45.0-75.0); PLATELET COUNT 332 K/UL (150-450); RED BLOOD COUNT 3.35 M/UL (4.20-5.40); RED CELL DISTRIBUTION WIDTH 17.3 % (11.6-14.8); WHITE BLOOD COUNT 5.8 K/UL (4.8-10.8)
[2017-11-06] MEDS ORDERED: Tubing IV Secondary IV ONE (16:31)
[2017-11-06] MEDS ORDERED: NS 275ml ONE (16:31)
[2017-11-06 16:58] LABS: ALANINE AMINOTRANSFERASE 22 U/L (12-78); ALBUMIN 1.6 G/DL (3.4-5.0); ALBUMIN/GLOBULIN RATIO 0.4 (1.0-2.7); ALKALINE PHOSPHATASE 107 U/L (46-116); ANION GAP 8 mmol/L (5-15); ASPARTATE AMINO TRANSFERASE 16 U/L (15-37); BILIRUBIN,TOTAL 0.5 MG/DL (0.2-1.0); BLOOD UREA NITROGEN 5 mg/dL (7-18); CALCIUM 7.8 MG/DL (8.5-10.1); CARBON DIOXIDE 27 MMOL/L (21-32); CHLORIDE 105 MMOL/L (98-107); CREATININE 0.6 MG/DL (0.55-1.30); POTASSIUM 3.3 MMOL/L (3.5-5.1); SODIUM 140 MMOL/L (136-145)
[2017-11-06 20:00] VITALS: BP 101/60
[2017-11-06] MEDS: Dyna-Hex 2% Top Sol 2oz TOPIC SCH (21:32)
[2017-11-07] VITALS: BP 95/60
[2017-11-07] MEDS: Albuterol/Ipratropium 3ml neb HHN SCH ×4 (01:05→19:00)
[2017-11-07] MEDS: Norco 5mg/325mg tab ORAL PRN ×2 (03:55→15:21)
[2017-11-07 04:00] VITALS: BP 147/81
--- NOTE | 2017-11-07 04:30 | Progress Note ---
DATE: 11/06/2017 CARDIOLOGY PROGRESS NOTE SUBJECTIVE: The patient has leg pains. They are uncontrolled. She is quite uncomfortable. Imaging studies confirmed prior IVC filter placement. CT scan reveals right-sided infiltrate versus scar. Cough is diminished. Aspiration precautions in place. OBJECTIVE: VITAL SIGNS: Blood pressure 135/56, pulse 95, respiratory rate 18. LUNGS: Bilateral breath sounds. Scattered rhonchi. HEART: Regular rhythm and rate. Normal S1, S2. ABDOMEN: Soft. EXTREMITIES: A 1+ edema. LABORATORY DATA: Potassium 3.3, magnesium 1.3, albumin 1.6. IMPRESSIONS: 1. Pneumonia. 2. Acute and chronic DVTs with IVC filter. 3. Severe hypomagnesemia. 4. Hypokalemia. 5. Hypertensive heart disease with CKD 6. Folate deficiency. PLAN: 1. Additional potassium. 2. IV magnesium. 3. Folate replacement. 4. Infectious Disease consult pending. 5. Anti-platelet therapy. 6. DVT prophylaxis. Dose of heparin subcutaneous. 7. Antimicrobials adjustment noted. 8. Antiseizure therapy without change. Carlos Eduardo Andino M.D. DR: Savannah JOB#: [id number] CC: CASSANDRA
[2017-11-07] MEDS: Heparin 5000 units/ml inj SUBQ SCH ×3 (06:15→21:30)
[2017-11-07 08:00] VITALS: BP 102/59
--- NOTE | 2017-11-07 08:00 | General Progress Note ---
Assessment/Plan Problem List: (1) CVA (cerebral vascular accident) ICD Codes: I63.9 - Cerebral infarction, unspecified SNOMED: 386144698 (2) DVT (deep vein thrombosis) in ICD Codes: O22.30 - Deep phlebothrombosis in , unspecified trimester; I82.409 - Acute embolism and thrombosis of unspecified deep veins of unspecified lower extremity SNOMED: 36961164, 510885815 (3) Seizure ICD Codes: R56.9 - Unspecified convulsions SNOMED: 76948415 (4) Neuropathy ICD Codes: G62.9 - Polyneuropathy, unspecified SNOMED: 669190539 (5) Functional quadriplegia ICD Codes: R53.2 - Functional quadriplegia SNOMED: 416818892451701 (6) ACS (acute coronary syndrome) ICD Codes: I24.9 - Acute ischemic heart disease, unspecified SNOMED: 754134313 Status: stable, progressing Assessment/Plan pain rx video swallow attempted but pt refused when down for the study iv abx id eval sz rx pt accepted to [facility] when stable.. ?tomorrow Subjective ROS Limited/Unobtainable: No Constitutional: Reports: malaise, weakness HEENT: Reports: no symptoms Cardiovascular: Reports: no symptoms Respiratory: Reports: cough Gastrointestinal/Abdominal: Reports: abdominal pain Genitourinary: Reports: no symptoms Neurologic/Psychiatric: Reports: pre-existing deficit Endocrine: Reports: no symptoms Hematologic/Lymphatic: Reports: no symptoms Allergies: Coded Allergies: CEFEPIME (Unverified Allergy, Unknown, 11/03/17) LEVOFLOXACIN (Unverified Allergy, Unknown, 11/03/17) PENICILLINS (Unverified Allergy, Unknown, 11/03/17) All Systems: reviewed and negative except above Subjective no complaints. pain better controlled. on iv abx. nontoxic. no new complaints. no fevers or chills. Objective Last 24 Hour Vital Signs Date Time Temp Pulse Resp B/P (MAP) Pulse Ox O2 Delivery O2 Flow Rate FiO2 11/07/17 04:00 97.0 86 20 147/81 96 Nasal Cannula 2.0 97.0 11/07/17 03:51 88 11/07/17 01:12 87 18 98 Nasal Cannula 2.0 28 11/07/17 01:00 86 18 96 Nasal Cannula 2.0 28 11/07/17 00:00 97.0 86 20 95/60 97 Nasal Cannula 2.0 97.0 11/06/17 23:41 84 11/06/17 21:33 105 115/77 11/06/17 20:00 89 11/06/17 20:00 98.2 90 22 101/60 97 Nasal Cannula 2.0 98.2 11/06/17 19:56 90 18 98 Nasal Cannula 2.0 28 11/06/17 19:46 88 20 96 Nasal Cannula 2.0 28 11/06/17 19:46 Nasal Cannula 2.0 28 11/06/17 19:45 96 Nasal Cannula 2.0 28 11/06/17 16:00 97.6 81 20 90/53 96 Nasal Cannula 2.0 97.6 11/06/17 16:00 82 11/06/17 13:19 93 20 96 Nasal Cannula 2.0 28 11/06/17 13:08 96 18 Nasal Cannula 2.0 28 11/06/17 12:00 82 11/06/17 12:00 97.9 82 20 106/71 98 Nasal Cannula 2.0 97.9 11/06/17 09:38 93 110/67 11/06/17 08:00 97.7 93 21 110/67 99 Nasal Cannula 2.0 97.7 11/06/17 08:00 92 Intake and Output 11/06/17 11/07/17 19:00 07:00 # Voids 1 Laboratory Tests 11/06/17 16:00: White Blood Count 5.8, Red Blood Count 3.35L, Hemoglobin 9.9L, Hematocrit 29.7L , Mean Corpuscular Volume 89, Mean Corpuscular Hemoglobin 29.5, Mean Corpuscular Hemoglobin Concent 33.3, Red Cell Distribution Width 17.3H, Platelet Count 332, Mean Platelet Volume 5.7L, Neutrophils (%) (Auto) 54.4, Lymphocytes (%) (Auto) 29.6, Monocytes (%) (Auto) 12.2H, Eosinophils (%) (Auto) 2.9, Basophils (%) (Auto) 1.0, Sodium Level 140, Potassium Level 3.3L, Chloride Level 105, Carbon Dioxide Level 27, Anion Gap 8, Blood Urea Nitrogen 5L, Creatinine 0.6, Estimat Glomerular Filtration Rate > 60, Glucose Level 106, Calcium Level 7.8L, Magnesium Level 1.3L, Total Bilirubin 0.5, Aspartate Amino Transf (AST/SGOT) 16, Alanine Aminotransferase (ALT/SGPT) 22, Alkaline Phosphatase 107, Pro-B-Type Natriuretic Peptide 518H, Total Protein 5.7L, Albumin 1.6L, Globulin 4.1, Albumin/Globulin Ratio 0.4L, Vancomycin Level Trough 21.3H Height (Feet): 5 Height (Inches): 6.00 Weight (Pounds): 285 Objective General Appearance: WD/WN, alert Neck: supple Cardiovascular: regular rhythm Respiratory/Chest: chest wall non-tender, lungs clear, normal breath sounds Abdomen: normal bowel sounds, non tender, soft, no organomegaly Edema: no edema noted Arm (L), no edema noted Arm (R), no edema noted Leg (L), no edema noted Leg (R), no edema noted Pedal (L), no edema noted Pedal (R), no edema noted 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
[2017-11-07] MEDS: Aspirin Baby 81mg NG SCH (09:00)
[2017-11-07] MEDS: DULoxetine 30mg cap ORAL SCH (09:00)
[2017-11-07] MEDS: Lacosamide 50mg tablet ORAL SCH ×2 (09:00→21:26)
[2017-11-07] MEDS: Carvedilol 6.25mg Tab ORAL SCH ×2 (09:00→21:28)
[2017-11-07] MEDS: Aztreonam Inj 1 GM in D5W 55 ML IVPB SCH ×2 (09:57→17:00)
[2017-11-07] MEDS: Vancomycin 750mg/NS 250ml IVPB SCH ×2 (09:57→21:33)
[2017-11-07] MEDS: guaiFENesin 100mg/5ml Liq ud ORAL PRN ×2 (09:58→15:20)
[2017-11-07] MEDS: Amantadine 100mg cap ORAL SCH (09:59)
[2017-11-07] MEDS: Sensipar 30mg Tab ORAL SCH (09:59)
[2017-11-07 12:00] VITALS: BP 100/66
[2017-11-07 16:00] VITALS: BP 102/58
[2017-11-07 20:00] VITALS: BP 111/71
[2017-11-07] MEDS: Dyna-Hex 2% Top Sol 2oz TOPIC SCH (21:25)
[2017-11-08] VITALS: BP 100/60
[2017-11-08] MEDS: Aztreonam Inj 1 GM in D5W 55 ML IVPB SCH ×2 (00:43→09:06)
[2017-11-08] MEDS: Norco 5mg/325mg tab ORAL PRN ×3 (01:41→16:29)
[2017-11-08] MEDS: Albuterol/Ipratropium 3ml neb HHN SCH ×4 (02:02→19:00)
[2017-11-08 04:00] VITALS: BP 106/84
[2017-11-08] MEDS: Heparin 5000 units/ml inj SUBQ SCH ×3 (05:51→21:18)
[2017-11-08 08:00] VITALS: BP 98/56
[2017-11-08] MEDS: DULoxetine 30mg cap ORAL SCH (09:00)
[2017-11-08] MEDS: Amantadine 100mg cap ORAL SCH (09:00)
[2017-11-08] MEDS: Lacosamide 50mg tablet ORAL SCH ×2 (09:01→21:16)
[2017-11-08] MEDS: Sensipar 30mg Tab ORAL SCH (09:01)
[2017-11-08] MEDS: Aspirin Baby 81mg NG SCH (09:01)
[2017-11-08] MEDS: Carvedilol 6.25mg Tab ORAL SCH (09:06)
--- NOTE | 2017-11-08 09:15 | General Progress Note ---
Assessment/Plan Problem List: (1) CVA (cerebral vascular accident) ICD Codes: I63.9 - Cerebral infarction, unspecified SNOMED: 420380786 (2) DVT (deep vein thrombosis) in ICD Codes: O22.30 - Deep phlebothrombosis in , unspecified trimester; I82.409 - Acute embolism and thrombosis of unspecified deep veins of unspecified lower extremity SNOMED: 11460259, 768275999 (3) Seizure ICD Codes: R56.9 - Unspecified convulsions SNOMED: 00181698 (4) Neuropathy ICD Codes: G62.9 - Polyneuropathy, unspecified SNOMED: 521213851 (5) Functional quadriplegia ICD Codes: R53.2 - Functional quadriplegia SNOMED: 942319059549151 (6) ACS (acute coronary syndrome) ICD Codes: I24.9 - Acute ischemic heart disease, unspecified SNOMED: 820548347 Status: stable, progressing Assessment/Plan pain rx resp care o2 iv abx sz rx dc planning to snf Subjective ROS Limited/Unobtainable: No Constitutional: Reports: malaise, weakness HEENT: Reports: no symptoms Cardiovascular: Reports: no symptoms Respiratory: Reports: cough Gastrointestinal/Abdominal: Reports: abdominal pain Genitourinary: Reports: no symptoms Neurologic/Psychiatric: Reports: pre-existing deficit Endocrine: Reports: no symptoms Hematologic/Lymphatic: Reports: anemia Allergies: Coded Allergies: CEFEPIME (Unverified Allergy, Unknown, 11/03/17) LEVOFLOXACIN (Unverified Allergy, Unknown, 11/03/17) PENICILLINS (Unverified Allergy, Unknown, 11/03/17) All Systems: reviewed and negative except above Subjective no complaints. pain better controlled. on iv abx. nontoxic. no new complaints. no fevers or chills. speech noted. no fevers. Objective Last 24 Hour Vital Signs Date Time Temp Pulse Resp B/P (MAP) Pulse Ox O2 Delivery O2 Flow Rate FiO2 11/08/17 09:06 95 98/56 11/08/17 08:02 92 20 98 Nasal Cannula 2.0 28 11/08/17 07:56 Nasal Cannula 2.0 28 11/08/17 07:55 98 Nasal Cannula 2.0 11/08/17 04:03 91 11/08/17 04:00 98.1 94 18 106/84 98 Nasal Cannula 2.0 98.1 11/08/17 02:12 82 20 95 Nasal Cannula 2.0 28 11/08/17 02:04 82 20 95 Nasal Cannula 2.0 28 11/08/17 00:00 98.4 84 20 100/60 98 Nasal Cannula 2.0 98.4 11/07/17 23:37 82 11/07/17 21:28 90 111/71 11/07/17 20:26 Nasal Cannula 11/07/17 20:25 Nasal Cannula 11/07/17 20:24 Room Air 11/07/17 20:23 93 Room Air 21 11/07/17 20:00 98.1 90 18 111/71 98 Nasal Cannula 2.0 98.1 11/07/17 19:00 90 11/07/17 16:00 97.8 95 22 102/58 98 Nasal Cannula 2.0 97.8 11/07/17 16:00 91 11/07/17 13:47 88 18 98 Nasal Cannula 2.0 28 11/07/17 13:37 87 18 98 Nasal Cannula 2.0 28 11/07/17 12:00 97.9 76 20 100/66 98 Nasal Cannula 2.0 97.9 11/07/17 12:00 87 Intake and Output 11/07/17 11/08/17 19:00 07:00 Intake Total 200 ml 543.334 ml Balance 200 ml 543.334 ml Intake Oral 200 ml IV Total 543.334 ml # Voids 3 # Bowel Movements 1 Height (Feet): 5 Height (Inches): 6.00 Weight (Pounds): 287 Objective General Appearance: WD/WN, alert Neck: supple Cardiovascular: regular rhythm Respiratory/Chest: chest wall non-tender, lungs clear, normal breath sounds Abdomen: normal bowel sounds, non tender, soft, no organomegaly Edema: no edema noted Arm (L), no edema noted Arm (R), no edema noted Leg (L), no edema noted Leg (R), no edema noted Pedal (L), no edema noted Pedal (R), no edema noted 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
[2017-11-08] MEDS: guaiFENesin 100mg/5ml Liq ud ORAL PRN (09:18)
[2017-11-08] MEDS: Vancomycin 750mg/NS 250ml IVPB SCH (09:48)
[2017-11-08 11:45] VITALS: BP 99/59
--- NOTE | 2017-11-08 11:51 | Infectious Diseases Prog Note ---
Assessment/Plan Assessment/Plan antibiotics : vancomycin iv, aztreonam, flagyl A 1. pneumonia 2. DVT 3. CVA 4. seizures P 1. d/c vancomycin iv, aztreonam, flagyl 2. start and continue po doxycycline 4 more days 3. will follow up cultures Subjective Constitutional: Denies: fever, chills Respiratory: Reports: dry cough - decreasing; Denies: shortness of breath Gastrointestinal/Abdominal: Denies: nausea, vomiting, diarrhea Musculoskeletal: Denies: pain Allergies: Coded Allergies: CEFEPIME (Unverified Allergy, Unknown, 11/03/17) LEVOFLOXACIN (Unverified Allergy, Unknown, 11/03/17) PENICILLINS (Unverified Allergy, Unknown, 11/03/17) Objective Vital Signs Last 24 Hour Vital Signs Date Time Temp Pulse Resp B/P (MAP) Pulse Ox O2 Delivery O2 Flow Rate FiO2 11/08/17 11:45 98.0 90 20 99/59 98 Nasal Cannula 2.0 98.0 11/08/17 10:18 98.1 11/08/17 09:19 98.1 11/08/17 09:06 95 98/56 11/08/17 08:02 92 20 98 Nasal Cannula 2.0 28 11/08/17 08:00 98.2 95 20 98/56 98 Nasal Cannula 2.0 98.2 11/08/17 07:56 Nasal Cannula 2.0 28 11/08/17 07:55 98 Nasal Cannula 2.0 11/08/17 04:03 91 11/08/17 04:00 98.1 94 18 106/84 98 Nasal Cannula 2.0 98.1 11/08/17 02:12 82 20 95 Nasal Cannula 2.0 28 11/08/17 02:04 82 20 95 Nasal Cannula 2.0 28 11/08/17 00:00 98.4 84 20 100/60 98 Nasal Cannula 2.0 98.4 11/07/17 23:37 82 11/07/17 21:28 90 111/71 11/07/17 20:26 Nasal Cannula 11/07/17 20:25 Nasal Cannula 11/07/17 20:24 Room Air 11/07/17 20:23 93 Room Air 21 11/07/17 20:00 98.1 90 18 111/71 98 Nasal Cannula 2.0 98.1 11/07/17 19:00 90 11/07/17 16:00 97.8 95 22 102/58 98 Nasal Cannula 2.0 97.8 11/07/17 16:00 91 11/07/17 13:47 88 18 98 Nasal Cannula 2.0 28 11/07/17 13:37 87 18 98 Nasal Cannula 2.0 28 11/07/17 12:00 97.9 76 20 100/66 98 Nasal Cannula 2.0 97.9 11/07/17 12:00 87 Height (Feet): 5 Height (Inches): 6.00 Weight (Pounds): 287 Respiratory/Chest: lungs clear Cardiovascular: normal rate, regular rhythm, no gallop/murmur Abdomen: soft, non tender Extremities: other - + edema, left arm PICC Current Medications Medications (Trade) Dose Ordered Sig/Saira Route PRN Reason Start Time Stop Time Status Last Admin Dose Admin Acetaminophen (Tylenol) 650 mg Q6H PRN ORAL Mild Pain/Temp > 100.5 11/03/17 16:23 12/03/17 16:22 11/04/17 21:10 Acetaminophen/ Hydrocodone Bitart ([place] 5/325) 1 tab Q6H PRN ORAL Moderate Pain (Pain Scale 4-6) 11/05/17 15:00 11/10/17 16:27 11/08/17 09:19 Albuterol/ Ipratropium (Albuterol/ Ipratropium) 3 ml Q6HRT HHN 11/03/17 19:00 11/08/17 18:59 11/08/17 08:02 Amantadine HCl (Symmetrel) 100 mg DAILY ORAL 11/04/17 09:00 12/04/17 08:59 11/08/17 09:00 Aspirin (ASA) 81 mg DAILY NG 11/04/17 12:45 12/04/17 12:44 11/08/17 09:01 Atorvastatin Calcium (Lipitor) 10 mg BEDTIME ORAL 11/04/17 21:00 12/04/17 20:59 11/07/17 21:26 Aztreonam 1 gm/ Dextrose 55 ml @ 110 mls/hr Q8H IVPB 11/07/17 09:00 11/14/17 08:59 11/08/17 09:06 Carvedilol (Coreg) 6.25 mg EVERY 12 HOURS ORAL 11/03/17 21:00 12/03/17 20:59 11/08/17 09:06 Chlorhexidine Gluconate (Natalia-Hex 2%) 1 applic DAILY@2000 TOPIC 11/04/17 20:00 12/04/17 19:59 11/07/17 21:25 Cinacalcet (Sensipar) 30 mg DAILY ORAL 11/04/17 09:00 12/04/17 08:59 11/08/17 09:01 Duloxetine HCl (Cymbalta) 60 mg DAILY ORAL 11/04/17 09:00 12/04/17 08:59 11/08/17 09:00 Famotidine (Pepcid) 20 mg DAILY ORAL 11/04/17 09:00 12/04/17 08:59 11/08/17 09:01 Folic Acid (Folate) 1 mg DAILY ORAL 11/06/17 09:00 12/06/17 08:59 11/08/17 09:01 Guaifenesin (Robitussin) 100 mg Q4H PRN ORAL For Cough 11/04/17 16:15 12/04/17 16:14 11/08/17 09:18 Heparin Sodium (Porcine) (Heparin 5000 units/ml) 5,000 units EVERY 8 HOURS SUBQ 11/03/17 22:00 12/03/17 21:59 11/08/17 05:51 Lacosamide (Vimpat) 50 mg Q12HR ORAL 11/03/17 21:00 12/03/17 20:59 11/08/17 09:01 Levetiracetam (Keppra) 500 mg Q12HR ORAL 11/03/17 21:00 12/03/17 20:59 11/08/17 09:01 Magnesium Hydroxide (Mom) 30 ml DAILYPRN PRN ORAL Constipation 11/03/17 16:25 12/03/17 16:24 Metronidazole 100 ml @ 100 mls/hr Q8H IVPB 11/07/17 09:00 11/14/17 08:59 11/08/17 09:20 Ondansetron HCl (Zofran) 4 mg Q6H PRN IVP Nausea & Vomiting 11/03/17 16:25 12/03/17 16:24 Oxycodone/ Acetaminophen (Percocet 5-325) 1 tab Q8H PRN ORAL Severe Pain (Pain Scale 7-10) 11/05/17 14:45 11/12/17 14:44 11/06/17 18:22 Vancomycin HCl (Vanco rx to dose) 1 ea ONCE PRN MISC Per rx protocol 11/03/17 16:32 12/03/17 16:31 Vancomycin/Sodium Chloride 250 ml @ 166.667 mls/hr Q12HR IVPB 11/07/17 09:00 11/12/17 08:59 11/08/17 09:48 CHRISTY GALICIA Nov 08, 2017 11:51
[2017-11-08] MEDS: oxyCODONE HCL/Acetaminophen 5/325mg ORAL PRN (12:08)
[2017-11-08] MEDS ORDERED: guaiFENesin 100mg/5ml Liq ud ORAL PRN (15:00)
[2017-11-08] MEDS ORDERED: Milk of Magnesia 30ml Ud ORAL PRN (15:00)
[2017-11-08 16:00] VITALS: BP 102/66
[2017-11-08 20:00] VITALS: BP 107/63
[2017-11-08] MEDS ORDERED: Dyna-Hex 2% Top Sol 2oz TOPIC SCH (20:00)
[2017-11-08] MEDS ORDERED: oxyCODONE HCL/Acetaminophen 5/325mg ORAL PRN (20:00)
[2017-11-08] MEDS ORDERED: Carvedilol 6.25mg Tab ORAL SCH (21:00)
[2017-11-09] VITALS: BP 109/69
[2017-11-09] MEDS: Albuterol/Ipratropium 3ml neb HHN SCH ×3 (01:00→13:19)
[2017-11-09] MEDS: Norco 5mg/325mg tab ORAL PRN (02:46)
[2017-11-09 04:00] VITALS: BP 145/98
--- NOTE | 2017-11-09 05:15 | Progress Note ---
DATE: 11/07/2017 SUBJECTIVE: The patient has not been able to complete a swallow evaluation. She continues on IV antibiotics. She has not had any seizure. Her blood pressure remains labile. Her pain control has improved. PHYSICAL EXAMINATION: VITAL SIGNS: Blood pressure 95/60 to 147/81, pulse 86, respiratory rate 18, and afebrile. LUNGS: With diminished breath sounds. CARDIAC: Regular rhythm and rate. Normal S1 and S2 with a fourth heart sound. ABDOMEN: Obese, but soft. EXTREMITIES: With trace edema, mostly nonpitting. IMPRESSION: 1. Acute on chronic DVT with IVC filter. 2. Hypokalemia. 3. Hypomagnesemia, status post replacement. 4. Hypertensive heart disease with labile blood pressure. 5. Folate deficiency. 6. Recovering pneumonia. 7. Dysphagia. 8. History of breast cancer. PLAN: 1. Antimicrobials. 2. Swallow evaluation. 3. Replace electrolytes and vitamins. 4. DVT prophylaxis. 5. Antiseizure therapy. 6. Hold parameters for antihypertensives for low-range blood pressure episodes. 7. Discharge planning. Carlos Eduardo Andino M.D. DR: DEREJE JOB#: [id number] CC:
[2017-11-09] MEDS: Heparin 5000 units/ml inj SUBQ SCH ×2 (05:43→14:29)
--- NOTE | 2017-11-09 05:45 | Progress Note ---
DATE: 11/08/2017 CARDIOLOGY PROGRESS NOTE SUBJECTIVE: The patient is on oral antibiotics. Pain is controlled. Cough has decreased. She is in no respiratory distress. Swallow evaluation noted. OBJECTIVE: VITAL SIGNS: Blood pressure 98/56, pulse 95, and respirations 20. LUNGS: Diminished breath sounds. Few rhonchi. HEART: Regular rhythm and rate. Normal S1 and S2. ABDOMEN: Soft. EXTREMITIES: Trace edema. IMPRESSION: Overall improved, but still with episodes of low blood pressure. PLAN: 1. antibiotics per Infectious Disease home sales consultant. 2. DVT prophylaxis. 3. Vitamin and electrolyte supplementation as needed. 4. Recheck electrolytes tomorrow. 5. Decrease dose of antihypertensives in view of low blood pressure readings. Carlos Eduardo Andino M.D. DR: JOSE JUAN JOB#: [id number] CC:
[2017-11-09 08:00] VITALS: BP 112/72
[2017-11-09 08:07] LABS: BASOPHILS % (AUTO) 1.1 % (0.0-2.0); EOSINOPHILS % (AUTO) 1.9 % (0.0-3.0); HEMATOCRIT 31.5 % (37.0-47.0); HEMOGLOBIN 10.6 G/DL (12.0-16.0); LYMPHOCYTES % (AUTO) 18.8 % (20.0-45.0); MEAN CORPUSCULAR VOLUME 90 FL (80-99); NEUTROPHILS % (AUTO) 67.2 % (45.0-75.0); PLATELET COUNT 401 K/UL (150-450); RED BLOOD COUNT 3.52 M/UL (4.20-5.40); RED CELL DISTRIBUTION WIDTH 17.3 % (11.6-14.8); WHITE BLOOD COUNT 7.1 K/UL (4.8-10.8)
[2017-11-09 08:33] LABS: ALANINE AMINOTRANSFERASE 21 U/L (12-78); ALBUMIN 1.7 G/DL (3.4-5.0); ALBUMIN/GLOBULIN RATIO 0.4 (1.0-2.7); ALKALINE PHOSPHATASE 113 U/L (46-116); ANION GAP 7 mmol/L (5-15); ASPARTATE AMINO TRANSFERASE 15 U/L (15-37); BILIRUBIN,TOTAL 0.5 MG/DL (0.2-1.0); BLOOD UREA NITROGEN 5 mg/dL (7-18); CARBON DIOXIDE 26 MMOL/L (21-32); CHLORIDE 106 MMOL/L (98-107); CREATININE 0.6 MG/DL (0.55-1.30); POTASSIUM 3.3 MMOL/L (3.5-5.1); SODIUM 139 MMOL/L (136-145)
[2017-11-09] MEDS ORDERED: Sensipar 30mg Tab ORAL SCH (09:00)
[2017-11-09] MEDS ORDERED: Aspirin Baby 81mg NG SCH (09:00)
[2017-11-09] MEDS ORDERED: DULoxetine 30mg cap ORAL SCH (09:00)
[2017-11-09] MEDS ORDERED: Carvedilol 6.25mg Tab ORAL SCH (09:00)
[2017-11-09] MEDS ORDERED: Amantadine 100mg cap ORAL SCH (09:00)
[2017-11-09] MEDS: Lacosamide 50mg tablet ORAL SCH (09:36)
--- NOTE | 2017-11-09 10:56 | Infectious Diseases Prog Note ---
Assessment/Plan Assessment/Plan antibiotics : doxycycline po A 1. pneumonia improving 2. DVT 3. CVA 4. seizures P 1. continue po doxycycline 3 more days 2. will follow up cultures Subjective Constitutional: Denies: fever, chills Respiratory: Reports: shortness of breath - decreased, dry cough - decreased Gastrointestinal/Abdominal: Denies: nausea, vomiting, diarrhea Musculoskeletal: Denies: pain Allergies: Coded Allergies: CEFEPIME (Unverified Allergy, Unknown, 11/03/17) LEVOFLOXACIN (Unverified Allergy, Unknown, 11/03/17) PENICILLINS (Unverified Allergy, Unknown, 11/03/17) Objective Vital Signs Last 24 Hour Vital Signs Date Time Temp Pulse Resp B/P (MAP) Pulse Ox O2 Delivery O2 Flow Rate FiO2 11/09/17 09:37 104 112/72 11/09/17 08:00 98.7 104 18 112/72 98 Nasal Cannula 2.0 98.7 11/09/17 07:18 88 20 100 Nasal Cannula 2.0 11/09/17 07:10 98 Nasal Cannula 2.0 11/09/17 07:10 86 20 98 Nasal Cannula 2.0 28 11/09/17 07:10 Nasal Cannula 2.0 28 11/09/17 04:00 97.2 101 20 145/98 94 97.2 11/09/17 01:01 Nasal Cannula 11/09/17 01:01 Nasal Cannula 11/09/17 00:00 98.2 94 20 109/69 93 98.2 11/08/17 21:16 96 107/63 11/08/17 20:08 Nasal Cannula 2.0 11/08/17 20:08 Nasal Cannula 11/08/17 20:08 Nasal Cannula 11/08/17 20:07 96 Nasal Cannula 2.0 28 11/08/17 20:00 98.4 96 20 107/63 93 98.4 11/08/17 17:28 98.0 11/08/17 16:29 98.0 11/08/17 16:00 Nasal Cannula 2.0 11/08/17 16:00 97.7 65 20 102/66 95 97.7 11/08/17 14:24 Nasal Cannula 11/08/17 14:24 Nasal Cannula 11/08/17 13:07 98.0 11/08/17 12:08 98.0 11/08/17 11:45 98.0 90 20 99/59 98 Nasal Cannula 2.0 98.0 Height (Feet): 5 Height (Inches): 6.00 Weight (Pounds): 278 Respiratory/Chest: lungs clear Cardiovascular: normal rate, regular rhythm, no gallop/murmur Abdomen: soft, non tender Extremities: other - + edema bilaterally, left arm PICC Laboratory Tests Test 11/09/17 05:13 White Blood Count 7.1 K/UL (4.8-10.8) Red Blood Count 3.52 M/UL (4.20-5.40) L Hemoglobin 10.6 G/DL (12.0-16.0) L Hematocrit 31.5 % (37.0-47.0) L Mean Corpuscular Volume 90 FL (80-99) Mean Corpuscular Hemoglobin 30.2 PG (27.0-31.0) Mean Corpuscular Hemoglobin Concent 33.7 G/DL (32.0-36.0) Red Cell Distribution Width 17.3 % (11.6-14.8) H Platelet Count 401 K/UL (150-450) Mean Platelet Volume 5.7 FL (6.5-10.1) L Neutrophils (%) (Auto) 67.2 % (45.0-75.0) Lymphocytes (%) (Auto) 18.8 % (20.0-45.0) L Monocytes (%) (Auto) 11.0 % (1.0-10.0) H Eosinophils (%) (Auto) 1.9 % (0.0-3.0) Basophils (%) (Auto) 1.1 % (0.0-2.0) Sodium Level 139 MMOL/L (136-145) Potassium Level 3.3 MMOL/L (3.5-5.1) L Chloride Level 106 MMOL/L (98-107) Carbon Dioxide Level 26 MMOL/L (21-32) Anion Gap 7 mmol/L (5-15) Blood Urea Nitrogen 5 mg/dL (7-18) L Creatinine 0.6 MG/DL (0.55-1.30) Estimat Glomerular Filtration Rate > 60 mL/min (>60) Glucose Level 87 MG/DL (74-106) Calcium Level 8.0 MG/DL (8.5-10.1) L Magnesium Level 1.2 MG/DL (1.8-2.4) L Total Bilirubin 0.5 MG/DL (0.2-1.0) Aspartate Amino Transf (AST/SGOT) 15 U/L (15-37) Alanine Aminotransferase (ALT/SGPT) 21 U/L (12-78) Alkaline Phosphatase 113 U/L (46-116) Total Protein 6.0 G/DL (6.4-8.2) L Albumin 1.7 G/DL (3.4-5.0) L Globulin 4.3 g/dL Albumin/Globulin Ratio 0.4 (1.0-2.7) L Current Medications Medications (Trade) Dose Ordered Sig/Saira Route PRN Reason Start Time Stop Time Status Last Admin Dose Admin Acetaminophen (Tylenol) 650 mg Q6H PRN ORAL Mild Pain/Temp > 100.5 11/08/17 15:00 12/03/17 14:59 Acetaminophen/ Hydrocodone Bitart (D[place]uba 5/325) 1 tab Q6H PRN ORAL Moderate Pain (Pain Scale 4-6) 11/08/17 15:00 11/10/17 16:27 11/09/17 02:46 Albuterol/ Ipratropium (Albuterol/ Ipratropium) 3 ml Q6HRT HHN 11/08/17 19:00 11/13/17 18:59 11/09/17 07:14 Amantadine HCl (Symmetrel) 100 mg DAILY ORAL 11/09/17 09:00 12/04/17 08:59 11/09/17 09:38 Aspirin (ASA) 81 mg DAILY NG 11/09/17 09:00 12/04/17 12:44 11/09/17 09:37 Atorvastatin Calcium (Lipitor) 10 mg BEDTIME ORAL 11/08/17 21:00 12/04/17 20:59 11/08/17 21:17 Carvedilol (Coreg) 6.25 mg EVERY 12 HOURS ORAL 11/09/17 09:00 12/09/17 08:59 11/09/17 09:37 Chlorhexidine Gluconate (Natalia-Hex 2%) 1 applic DAILY@2000 TOPIC 11/08/17 20:00 12/04/17 19:59 11/08/17 21:15 Cinacalcet (Sensipar) 30 mg DAILY ORAL 11/09/17 09:00 12/04/17 08:59 11/09/17 09:36 Doxycycline Monohydrate (Vibramycin) 100 mg EVERY 12 HOURS ORAL 11/08/17 21:00 11/15/17 11:59 11/09/17 09:37 Duloxetine HCl (Cymbalta) 60 mg DAILY ORAL 11/09/17 09:00 12/04/17 08:59 11/09/17 09:37 Famotidine (Pepcid) 20 mg DAILY ORAL 11/09/17 09:00 12/04/17 08:59 11/09/17 09:37 Folic Acid (Folate) 1 mg DAILY ORAL 11/09/17 09:00 12/06/17 08:59 11/09/17 09:37 Guaifenesin (Robitussin) 100 mg Q4H PRN ORAL For Cough 11/08/17 15:00 12/04/17 14:59 11/09/17 03:45 Heparin Sodium (Porcine) (Heparin 5000 units/ml) 5,000 units EVERY 8 HOURS SUBQ 11/08/17 22:00 12/03/17 21:59 11/09/17 05:43 Lacosamide (Vimpat) 50 mg Q12HR ORAL 11/08/17 21:00 12/03/17 20:59 11/09/17 09:36 Levetiracetam (Keppra) 500 mg Q12HR ORAL 11/08/17 21:00 12/03/17 20:59 11/09/17 09:36 Magnesium Hydroxide (Mom) 30 ml DAILYPRN PRN ORAL Constipation 11/08/17 15:00 12/03/17 14:59 Ondansetron HCl (Zofran) 4 mg Q6H PRN IVP Nausea & Vomiting 11/08/17 15:00 12/03/17 14:59 Oxycodone/ Acetaminophen (Percocet 5-325) 1 tab Q8H PRN ORAL Severe Pain (Pain Scale 7-10) 11/08/17 20:00 11/12/17 19:59 CHRISTY GALICIA Nov 09, 2017 10:56
[2017-11-09 12:00] VITALS: BP 118/77
[2017-11-09] MEDS ORDERED: ASPIRIN81 MG ORAL (12:43)
[2017-11-09] MEDS ORDERED: ATORVASTATIN CA10 MG ORAL (12:44)
[2017-11-09] MEDS ORDERED: VIBRAMYCIN100 MG ORAL (12:45)
[2017-11-09] MEDS ORDERED: FOLIC ACID1 MG ORAL (12:46)
[2017-11-09] MEDS ORDERED: GUAIFENESI100 MG/5 M ORAL (12:47)
[2017-11-09] MEDS ORDERED: HYDROCODON-ACE1 EA15 ORAL (12:48)
[2017-11-09] MEDS ORDERED: IPRATROPIU0.2 MG/1 M HHN (12:49)
[2017-11-09] MEDS ORDERED: MILK OF MA400 MG/51 ORAL (12:50)
[2017-11-09] MEDS ORDERED: OXYCODONE-ACET1 EAC3 ORAL (12:50)
[2017-11-09] MEDS ORDERED: ACETAMINOPHEN325 M1 ORAL (12:52)
[2017-11-09 16:00] VITALS: BP 111/68
[2017-11-09] MEDS ORDERED: NS 275ml ONE (17:19)
--- NOTE | 2017-11-10 04:45 | Progress Note ---
DATE: 11/09/2017 CARDIOLOGY PROGRESS NOTE SUBJECTIVE: The patient has no nausea or vomiting. No chest pain or shortness of breath. The left upper extremity PICC line was removed by me. OBJECTIVE: VITAL SIGNS: Blood pressure 111/68, heart rate 82, and respiratory rate 18. NECK: Supple. LUNGS: Clear. CARDIAC: Regular rhythm and rate. Normal S1 and S2 with a fourth heart sound. ABDOMEN: Soft and obese. EXTREMITIES: With trace edema. LABORATORY DATA: White count 7 and hemoglobin 10.6. Potassium 3.3. Magnesium 1.2. IMPRESSION: 1. Hypomagnesemia. 2. Hypokalemia. 3. Folate deficiency. 4. History of breast cancer. 5. Hypertensive heart disease. 6. Chronic diastolic congestive heart failure. 7. History of deep venous thrombosis with inferior vena cava filter. 8. Severe protein-calorie malnutrition. PLAN: 1. Stable for rehab facility. 2. Potassium and magnesium replacement has been given. 3. Continue nutritional support and protein supplementation as well as vitamin supplementation. 4. DVT prophylaxis until mobility improves. 5. Titrate antihypertensives. 6. Reassess for diuresis based on clinical parameters. Carlos Eduardo Andino M.D. DR: Emanuel JOB#: [id number] CC:
--- NOTE | 2017-11-10 17:32 | Cardiology Report ---
APPROVED REPORT EKG Measurement Heart [id number] Sinus tachycardia Rightward axis Low voltage QRS Nonspecific ST and T wave abnormality Abnormal ECG
--- NOTE | 2017-11-11 10:47 | Cardiology Report ---
APPROVED REPORT EXAM: Two-dimensional and M-mode echocardiogram with Doppler and color Doppler. INDICATION Chest Pain M-Mode DIMENSIONS IVSd0.9 (0.7-1.1cm)Left Atrium (MM)3.4 (1.6-4.0cm) LVDd4.3 (3.5-5.6cm)Aortic Root3.1 (2.0-3.7cm) PWd1.0 (0.7-1.1cm)Aortic Cusp Exc.2.0 (1.5-2.0cm) LVDs2.5 (2.5-4.0cm) PWs1.4 cm Technically difficult study due to poor acoustical windows. Study quality precludes accurate assessment of regional wall motion. Normal left ventricular chamber size, systolic function and wall motion. Left ventricular ejection fraction estimated to be 60 %. No evidence of left ventricular hypertrophy. Anterior Echo-free space, may be due to pericardial fat or effusion. All other cardiac chamber sizes are within normal limits. Focal aortic valve sclerosis with adequate cusp excursion. Thickened mitral valve leaflets with normal excursion. Mitral annulus and aortic root calcification. Pulmonic valve not visualized. Normal tricuspid valve structure. IVC dilated at 2.1 cm with physiological collapse. A color flow and spectral Doppler study was performed and revealed: No aortic insufficiency. No mitral regurgitation. Mitral diastolic velocities suggest mild left ventricular diastolic dysfunction (Grade I). No tricuspid regurgitation. Tricuspid systolic velocities suggests peak right ventricular systolic pressure of 14 mmHg.
--- NOTE | 2017-11-11 11:54 | Discharge Summary ---
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 Apparently patient was in transfer from [place] to [facility] and was close to this hospital, when she started to complain of the chest pain. Patient subsequently was transferred to emergency room for further evaluation and management. Upon evaluation troponin was negative. Patient was afebrile but tachycardic. EKG showed sinus tachycardia but no acute ischemic changes. Patient noted to have productive cough, no leukocytosis. Chest x-ray revealed possible right-sided infiltrate. Patient was started on empiric antibiotics. Patient admitted with diagnosis of chest pain, possible acute coronary syndrome, possible healthcare associated pneumonia CONSULTANTS: pest locator ID specialist Dr. Serna HOSPITAL COURSE: Patient initially admitted to telemetry floor. Serial troponin were negative. Cardiology consult was requested. ECG revealed normal sinus rhythm, no acute ischemic changes. Patient was ruled out for acute [place]. Echocardiogram revealed preserved ejection fraction of 60% and right ventricular systolic pressure of 14, no evidence of left ventricular hypertrophy. Antihypertensive regimen and antianginal regimen was titrated , patient was on antiplatelet therapy. Lipid panel was within normal limits. Venous duplex bilateral lower extremity revealed chronic recanalized thrombus bilateral lower extremity. No evidence of acute DVT. Abdominal x-ray showed the IVC filter in place. Infectious disease specialist closely followed up. Patient was on empiric antibiotic. Supplemental oxygen provided as needed to keep pulse oximetry above 92%, pulmonary toilet provided as needed. No signs of respiratory distress. Patient undergone CT of the chest, which revealed right lower lobe parenchymal disease, which could reflect acute infiltrate, confluent chronic fibrotic changes or a combination of both. Nonspecific reticular opacity in the posterior right upper lobe was noted, likely representing acute inflammatory change or chronic fibrotic change. Evidence of COPD with bilateral hyperinflation and small bullae. No evidence of generalized interstitial disease. Swallow evaluation revealed high risk for silent aspiration. Patient was on strict aspiration/reflux precaution with diet as recommended by speech therapist. Family was educated on diet and aspiration precautions. Patient noted to have hypomagnesemia and hypokalemia which were repleted. Patient noted to be anemic , and anemia workup revealed folate deficiency. Folic acid replacement initiated. Seizure precautions were maintained, no seizure activity while in the hospital . Antiepileptic medications were continued. Rn [employer] evaluated the patient due to severe protein calorie malnutrition. Rn [employer] recommendations were implemented in plan of care. Patient clinically improved. No complain of chest pain, no shortness of breath , no signs of respiratory distress. Patient was stable for discharge back to intermediate facility for continuation of care FINAL DIAGNOSES: Pneumonia History of DVT, status post IVC filter History of stroke with aneurysm Hypertensive heart disease Seizure disorder Electrolytes imbalance(hypomagnesemia, hypokalemia) Chronic diastolic CHF Severe protein calorie malnutrition Anemia folate deficiency Functional quadriplegia History of breast CA DISCHARGE MEDICATIONS: See Medication Reconciliation list. DISCHARGE INSTRUCTIONS: Patient was discharged to intermediate facility, follow-up with medical doctor at the facility I have been assigned to dictate discharge summary for this account. I was not involved in the patient's management. Tosha Goyal NP ([place]) Nov 11, 2017 11:54
== END 2017-11-09 17:20 | DRG 193 ==
LOC: EDBD 11:07 → EMR 11:30 → 2E 12:21 → EDBEDREQ 12:31 → 4E 11-08 14:35
PROC: B518ZZA Fluoroscopy of Superior Vena Cava, Guidance (ICD-10-PCS; principal; 2017-11-04)
PROC: 02HV33Z Insertion of Infusion Device into Superior Vena Cava, Percutaneous Approach (ICD-10-PCS; principal; 2017-11-04)
DX: J18.9 Pneumonia, unspecified organism (principal); R53.2 Functional quadriplegia; E43 Unspecified severe protein-calorie malnutrition; I24.9 Acute ischemic heart disease, unspecified; I82.513 Chronic embolism and thrombosis of femoral vein, bilateral; I50.32 Chronic diastolic (congestive) heart failure; J44.0 Chronic obstructive pulmonary disease with (acute) lower respiratory infection; Z68.42 Body mass index [BMI] 45.0-49.9, adult; G62.9 Polyneuropathy, unspecified; Z86.73 Personal history of transient ischemic attack (TIA), and cerebral infarction without residual deficits; Z85.3 Personal history of malignant neoplasm of breast; G40.909 Epilepsy, unspecified, not intractable, without status epilepticus; I11.0 Hypertensive heart disease with heart failure; E21.3 Hyperparathyroidism, unspecified; E87.6 Hypokalemia; E83.42 Hypomagnesemia; R13.10 Dysphagia, unspecified; Z96.652 Presence of left artificial knee joint; Z96.641 Presence of right artificial hip joint; D64.9 Anemia, unspecified; E53.8 Deficiency of other specified B group vitamins
CPT/HCPCS: 36415; 36569; 71045; 71270; 74018; 76937; 80053; 80061; 80202; 80299; 82550; 82553; 82607; 82746; 83690; 83735; 83880; 84443; 84484; 85025; 87081; 93005; 93306; 93970; 94640; 94664; 94760; 99285; J7620; J8499

== ENCOUNTER 2018-01-13 10:18 | Inpatient (IN) | payer MEDICARE, MEDICAID ==
[~2018-01-13] VITALS: Ht 165.1 cm; Wt 113.4 kg
[~2018-01-13 10:18] MED LIST: ACETAMINOPHEN325 M1 ORAL; AMANTADINE100 M2 ORAL; AMLODIPINE BESYL5 MG ORAL; ASPIRIN EC325 MG ORAL; ASPIRIN81 MG ORAL; ATORVASTATIN CA10 MG ORAL; BISACODYL10 M1 RC; CARVEDILOL6.25 MG ORAL; CLONIDINE1 EAC1 TD; CYMBALTA60 MG ORAL; FAMOTIDINE20 MG ORAL; FLUZONE HI180 MCG/08 IM; FOLIC ACID1 MG ORAL; GUAIFENESI100 MG/5 M ORAL; HEPARIN SO5000 UNIT2 SUBQ; HYDROCODON-ACE1 EA15 ORAL; IPRATROPIU0.2 MG/1 M HHN; LACTULOSE10 GM/153 PO; LEVETIRACETAM500 M1 ORAL; MAG-OXIDE400 M1 PO; MILK OF MA400 MG/51 ORAL; MONTELUKAST SOD10 MG ORAL; NORCO 10-325 T1 EACH ORAL; OXYCODONE-ACET1 EAC3 ORAL; PNEUMOVAX25 MCG/0.5 IJ; PREVNAR 13 SYR0.5 ML IM; PROMETHAZINE-D118 ML ORAL; SENNA-DOCUSATE1 EACH PO; SENSIPAR30 MG ORAL; VIBRAMYCIN100 MG ORAL; VIMPAT50 MG PO; VITAMIN D1000 UNI1 ORAL; ZOFRAN4 M1 ORAL
[2018-01-13 13:50] VITALS: BP 131/87
[2018-01-13 15:00] VITALS: BP 124/75
[2018-01-13 16:06] VITALS: BP 129/80
[2018-01-13] MEDS ORDERED: Milk of Magnesia 30ml Ud ORAL PRN (16:45)
[2018-01-13] MEDS: Magnesium Oxide 400mg tab ORAL SCH (18:24)
[2018-01-13] MEDS ORDERED: Artificial Tears 1.4% Op Soln BOTH EYES ONE (18:30)
[2018-01-13] MEDS ORDERED: Albuterol/Ipratropium 3ml neb HHN SCH (19:00)
[2018-01-13] MEDS ORDERED: Albuterol/Ipratropium 3ml neb HHN PRN (19:00)
[2018-01-13] MEDS: Albuterol/Ipratropium 3ml neb HHN SCH (19:00)
--- NOTE | 2018-01-13 20:15 | History and Physical Report ---
DATE OF ADMISSION: 01/13/2018 CHIEF COMPLAINT: Shingles and cellulitis. HISTORY OF PRESENT ILLNESS: The patient is a pleasant female. She has a history of hypertensive heart disease, stroke, functional quadriplegia, neuropathy, and chronic pain. She presented from a senior living facility, initially complaints of severe abdominal pain. The patient was seen on Saturday with complaints of severe abdominal pain. KUB, x-ray and laboratories were unremarkable. On the day of admission, she had erythema over the entire abdominal area and some blisters, there was concern about possible cellulitis and/or shingles. In light of the severity of the rash, she is now admitted for further evaluation and care. The patient denies any fevers or chills, but she has severe abdominal pain. PAST MEDICAL HISTORY: As above. PAST SURGICAL HISTORY: None. CURRENT MEDICATIONS: Reconciled and reviewed. ALLERGIES: Cefepime, levofloxacin and penicillin. FAMILY HISTORY: Noncontributory. SOCIAL HISTORY: There is no known history of tobacco, ethanol, or drugs. REVIEW OF SYSTEMS: GENERAL: No fever. Positive chills. HEENT: No headaches or visual changes. CARDIOPULMONARY: No chest pain or shortness of breath. GASTROINTESTINAL: No nausea or vomiting. GENITOURINARY: No urgency or frequency. MUSCULOSKELETAL: No joint pain or swelling. NEUROLOGIC: No history of seizures. PHYSICAL EXAMINATION: GENERAL: The patient is well developed, no apparent distress. She is awake, alert. She appears to be in a moderate amount of discomfort. VITAL SIGNS: Temperature is 98 degrees, blood pressure 130/76, pulse of 82, and respirations 20. NECK: Supple. Oropharynx is clear. Mucous membranes moist. HEART: Regular rate and rhythm. LUNGS: Clear. ABDOMEN: Soft, nontender and nondistended. There is extensive erythema with a pustular rash over the abdominal wall on the right side. There is no rebound or guarding. EXTREMITIES: Without clubbing, cyanosis, or edema. LABORATORY AND DIAGNOSTIC DATA: Lab is pending. ASSESSMENT: This is a pleasant female with complaints of cellulitis and singles. She has a prior history of stroke, DVT, seizure disorder, functional quadriplegia, and chronic pain syndrome. PLAN: IV antibiotics. Acyclovir. ID consultation. Isolation. Continue outpatient cardiac regimen. Continue outpatient seizure regimen. Cardiology and ID consultations will be obtained. Kenroy Mcgrath M.D. DR: MAYCO JOB#: [id number] CC:
[2018-01-13 20:55] VITALS: BP 146/76
[2018-01-13] MEDS: Carvedilol 6.25mg Tab ORAL SCH (21:09)
[2018-01-13] MEDS: MS Contin 15mg tab ORAL SCH (21:10)
[2018-01-13] MEDS: Lacosamide 50mg tablet ORAL SCH (21:10)
[2018-01-13] MEDS: Heparin 5000 units/ml inj SUBQ SCH (21:18)
[2018-01-14] MEDS: Albuterol/Ipratropium 3ml neb HHN SCH ×4 (01:18→20:15)
--- NOTE | 2018-01-14 08:23 | General Progress Note ---
Subjective ROS Limited/Unobtainable: No Constitutional: Reports: malaise, weakness HEENT: Reports: no symptoms Cardiovascular: Reports: no symptoms Respiratory: Reports: no symptoms Gastrointestinal/Abdominal: Reports: abdominal pain Genitourinary: Reports: no symptoms Neurologic/Psychiatric: Reports: pre-existing deficit Endocrine: Reports: no symptoms Hematologic/Lymphatic: Reports: no symptoms Allergies: Coded Allergies: CEFEPIME (Unverified Allergy, Unknown, 11/03/17) LEVOFLOXACIN (Unverified Allergy, Unknown, 11/03/17) PENICILLINS (Unverified Allergy, Unknown, 11/03/17) All Systems: reviewed and negative except above Subjective c/o abd pain. on iv morphine, on acyclovir Objective Last 24 Hour Vital Signs Date Time Temp Pulse Resp B/P (MAP) Pulse Ox O2 Delivery O2 Flow Rate FiO2 01/14/18 01:32 89 18 100 Nasal Cannula 2.0 28 01/14/18 01:18 87 18 98 Nasal Cannula 2.0 28 01/13/18 21:09 86 146/76 01/13/18 20:55 98.6 86 21 146/76 100 Nasal Cannula 2.0 98.6 01/13/18 16:06 98.4 78 18 129/80 99 Nasal Cannula 2.0 98.4 01/13/18 15:00 98.0 79 18 124/75 98 Nasal Cannula 2.0 98.0 01/13/18 13:50 98.2 83 18 131/87 98 Nasal Cannula 2.0 98.2 Intake and Output 01/13/18 01/14/18 19:00 07:00 Intake Total 360 ml Output Total 750 ml Balance 360 ml -750 ml Intake Oral 360 ml Output Urine Total 750 ml # Bowel Movements 3 Height (Feet): 5 Height (Inches): 5.00 Weight (Pounds): 250 General Appearance: WD/WN, alert Neck: supple Cardiovascular: normal rate, regular rhythm Respiratory/Chest: chest wall non-tender, lungs clear, normal breath sounds Abdomen: normal bowel sounds, non tender, soft Edema: no edema noted Arm (L), no edema noted Arm (R), no edema noted Leg (L), no edema noted Leg (R), no edema noted Pedal (L), no edema noted Pedal (R), no edema noted Generalized Skin: rash - vesicular rash on abd [place],Kenroy M. MD Jan 14, 2018 08:23
[2018-01-14 08:35] VITALS: BP 116/68
[2018-01-14] MEDS: DULoxetine 30mg cap ORAL SCH (08:56)
[2018-01-14] MEDS: Aspirin Baby 81mg NG SCH (08:56)
[2018-01-14] MEDS: Magnesium Oxide 400mg tab ORAL SCH ×3 (08:58→19:03)
[2018-01-14] MEDS: MS Contin 15mg tab ORAL SCH ×2 (08:59→20:46)
[2018-01-14] MEDS: Lacosamide 50mg tablet ORAL SCH ×2 (09:00→20:44)
[2018-01-14] MEDS: Ascorbic Acid 500mg tab ORAL SCH (09:00)
[2018-01-14] MEDS: Sensipar 30mg Tab ORAL SCH (09:09)
[2018-01-14] MEDS: Amantadine 100mg cap ORAL SCH (09:09)
[2018-01-14] MEDS: Carvedilol 6.25mg Tab ORAL SCH ×2 (09:20→20:44)
[2018-01-14] MEDS: Morphine Sulfate 2mg/ml Inj IVP PRN ×3 (10:43→22:26)
[2018-01-14 11:29] LABS: BASOPHILS % (AUTO) 0.9 % (0.0-2.0); EOSINOPHILS % (AUTO) 1.2 % (0.0-3.0); HEMATOCRIT 36.7 % (37.0-47.0); HEMOGLOBIN 11.9 G/DL (12.0-16.0); LYMPHOCYTES % (AUTO) 23.5 % (20.0-45.0); MEAN CORPUSCULAR VOLUME 94 FL (80-99); MONOCYTES % (AUTO) 11.9 % (1.0-10.0); NEUTROPHILS % (AUTO) 62.5 % (45.0-75.0); PLATELET COUNT 273 K/UL (150-450); RED BLOOD COUNT 3.92 M/UL (4.20-5.40); RED CELL DISTRIBUTION WIDTH 14.4 % (11.6-14.8); WHITE BLOOD COUNT 4.6 K/UL (4.8-10.8)
[2018-01-14 11:44] VITALS: BP 127/57
[2018-01-14 12:05] LABS: ALANINE AMINOTRANSFERASE 16 U/L (12-78); ALBUMIN/GLOBULIN RATIO 0.7 (1.0-2.7); ALKALINE PHOSPHATASE 95 U/L (46-116); ANION GAP 7 mmol/L (5-15); ASPARTATE AMINO TRANSFERASE 12 U/L (15-37); BILIRUBIN,TOTAL 0.6 MG/DL (0.2-1.0); BLOOD UREA NITROGEN 7 mg/dL (7-18); CALCIUM 9.5 MG/DL (8.5-10.1); CARBON DIOXIDE 28 MMOL/L (21-32); CHLORIDE 100 MMOL/L (98-107); CREATININE 0.7 MG/DL (0.55-1.30); POTASSIUM 4.6 MMOL/L (3.5-5.1); SODIUM 135 MMOL/L (136-145)
[2018-01-14] MEDS: Heparin 5000 units/ml inj SUBQ SCH ×2 (12:20→20:55)
[2018-01-14 15:45] VITALS: BP 144/80
[2018-01-14] MEDS: Lyrica 50mg cap ORAL SCH (17:25)
[2018-01-14] MEDS ORDERED: Lyrica 50mg cap ORAL SCH (18:00)
[2018-01-14 20:00] VITALS: BP 139/65
[2018-01-15] VITALS: BP 102/72
[2018-01-15] MEDS: Albuterol/Ipratropium 3ml neb HHN SCH ×4 (02:05→20:04)
[2018-01-15 04:00] VITALS: BP 125/67
[2018-01-15] MEDS: Morphine Sulfate 2mg/ml Inj IVP PRN ×4 (06:13→18:42)
[2018-01-15 07:19] VITALS: BP 137/70
[2018-01-15] MEDS: Ascorbic Acid 500mg tab ORAL SCH (09:05)
[2018-01-15] MEDS: Magnesium Oxide 400mg tab ORAL SCH ×3 (09:05→17:37)
[2018-01-15] MEDS: Amantadine 100mg cap ORAL SCH (09:05)
[2018-01-15] MEDS: Aspirin Baby 81mg NG SCH (09:05)
[2018-01-15] MEDS: Lyrica 50mg cap ORAL SCH ×3 (09:05→17:37)
[2018-01-15] MEDS: Sensipar 30mg Tab ORAL SCH (09:05)
[2018-01-15] MEDS: Carvedilol 6.25mg Tab ORAL SCH ×2 (09:06→20:58)
[2018-01-15] MEDS: DULoxetine 30mg cap ORAL SCH (09:06)
[2018-01-15] MEDS: Lacosamide 50mg tablet ORAL SCH ×2 (09:06→20:57)
[2018-01-15] MEDS: MS Contin 15mg tab ORAL SCH ×2 (09:06→20:57)
[2018-01-15] MEDS: Heparin 5000 units/ml inj SUBQ SCH ×2 (09:07→21:04)
[2018-01-15 12:00] VITALS: BP 96/57
--- NOTE | 2018-01-15 12:10 | General Progress Note ---
Assessment/Plan Problem List: (1) Seizure ICD Codes: R56.9 - Unspecified convulsions SNOMED: 37992135 (2) Neuropathy ICD Codes: G62.9 - Polyneuropathy, unspecified SNOMED: 542185244 (3) Pneumonia ICD Codes: J18.9 - Pneumonia, unspecified organism SNOMED: 142577448 (4) Functional quadriplegia ICD Codes: R53.2 - Functional quadriplegia SNOMED: 528246119220250 (5) DVT (deep vein thrombosis) in ICD Codes: O22.30 - Deep phlebothrombosis in , unspecified trimester; I82.409 - Acute embolism and thrombosis of unspecified deep veins of unspecified lower extremity SNOMED: 39749445, 310350912 (6) Shingles ICD Codes: B02.9 - Zoster without complications SNOMED: 7054131 Status: stable Assessment/Plan abx id eval pain rx adjusted skin care antiplt rx sz rx Subjective ROS Limited/Unobtainable: No Constitutional: Reports: malaise, weakness HEENT: Reports: no symptoms Cardiovascular: Reports: no symptoms Respiratory: Reports: no symptoms Gastrointestinal/Abdominal: Reports: abdominal pain Genitourinary: Reports: no symptoms Neurologic/Psychiatric: Reports: pre-existing deficit, seizure Endocrine: Reports: no symptoms Hematologic/Lymphatic: Reports: no symptoms Allergies: Coded Allergies: CEFEPIME (Unverified Allergy, Unknown, 11/03/17) LEVOFLOXACIN (Unverified Allergy, Unknown, 11/03/17) PENICILLINS (Unverified Allergy, Unknown, 11/03/17) All Systems: reviewed and negative except above Subjective c/o abd pain. on iv morphine, on acyclovir. lyrica and ms contin added Objective Last 24 Hour Vital Signs Date Time Temp Pulse Resp B/P (MAP) Pulse Ox O2 Delivery O2 Flow Rate FiO2 01/15/18 09:06 86 137/70 01/15/18 07:29 Nasal Cannula 01/15/18 07:29 Nasal Cannula 2.0 01/15/18 07:25 99 Nasal Cannula 2.0 01/15/18 07:25 Nasal Cannula 01/15/18 07:19 98.1 86 19 137/70 99 Room Air 98.1 01/15/18 04:00 97.4 82 19 125/67 95 Room Air 97.4 01/15/18 02:10 Nasal Cannula 01/15/18 02:10 Nasal Cannula 01/15/18 00:00 97.9 89 18 102/72 Room Air 97.9 01/14/18 22:26 99.0 01/14/18 21:44 99.0 01/14/18 20:46 100.5 01/14/18 20:45 100.5 01/14/18 20:44 85 139/65 01/14/18 20:17 99 Nasal Cannula 2.0 01/14/18 20:16 Nasal Cannula 2.0 01/14/18 20:15 Nasal Cannula 01/14/18 20:15 Nasal Cannula 01/14/18 20:00 100.2 85 19 139/65 97 Nasal Cannula 2.0 100.2 01/14/18 15:45 Nasal Cannula 2.0 01/14/18 15:45 98.2 79 20 144/80 100 98.2 01/14/18 13:55 Nasal Cannula 01/14/18 13:55 Nasal Cannula 01/14/18 12:13 98.2 01/14/18 12:12 98.2 Intake and Output 01/14/18 01/15/18 19:00 07:00 Intake Total 240 ml Output Total 900 ml Balance -660 ml Intake Oral 240 ml Output Urine Total 900 ml # Bowel Movements 2 Height (Feet): 5 Height (Inches): 5.00 Weight (Pounds): 250 General Appearance: WD/WN, alert Neck: supple Cardiovascular: regular rhythm Respiratory/Chest: lungs clear Abdomen: normal bowel sounds, non tender, no organomegaly Edema: no edema noted Arm (L), no edema noted Arm (R), no edema noted Leg (L), no edema noted Leg (R), no edema noted Pedal (L), no edema noted Pedal (R), no edema noted Generalized Neurologic: ice cutter II-XII grossly normal, alert, oriented x 3, normal mood/affect Kenroy Mcgrath MD Jan 15, 2018 12:10
--- NOTE | 2018-01-15 15:45 | Consultation ---
DATE OF CONSULTATION: 01/15/2018 INFECTIOUS DISEASES CONSULTATION CONSULTING PHYSICIAN: Huma Serna M.D. REFERRING PHYSICIAN: Kenroy Mcgrath M.D. REASON FOR CONSULTATION: Shingles. HISTORY OF PRESENTING ILLNESS: This is a 67-year-old lady with history of hypertension, stroke, quadriplegia, neuropathy, who came from [facility] with abdominal pain. She was found to have erythema with blisters on her right chest. An Infectious Diseases consultation has been obtained for antibiotics. PAST MEDICAL HISTORY: 1. History of hypertension. 2. History of stroke. 3. Quadriplegia. 4. Neuropathy. 5. History of breast cancer, status post mastectomy and chemotherapy. 6. COPD. SOCIAL HISTORY: She does not smoke, drink, or use drugs. FAMILY HISTORY: Her mother had lung cancer. Father had colon cancer. MEDICATIONS: As an inpatient, she is on Lyrica, morphine, amantadine, aspirin, Cymbalta, Pepcid, folic acid, ascorbic acid, Lasix, Sensipar, multivitamin, atorvastatin, subcutaneous heparin, lacosamide, carvedilol, morphine, acyclovir, albuterol, ipratropium, gabapentin, milk of magnesia, Percocet, and Tylenol. ALLERGIES: 1. Penicillin, which produces swelling. 2. Cefepime. 3. Levaquin. REVIEW OF SYSTEMS: RESPIRATORY: She had fever and chills. No cough. No shortness of breath or chest pain. CARDIAC: No chest pain. No palpitations. No dizziness. No syncope. GASTROINTESTINAL: No nausea. No vomiting. No abdominal pain or diarrhea. MUSCULOSKELETAL: She has pain on the right chest. PHYSICAL EXAMINATION: VITAL SIGNS: Temperature of 98.1, T-max of 100.5, pulse of 86, respiratory rate of 19, blood pressure 137/70, and O2 saturation of 99%. HEENT: Pupils equally reactive to light and accommodation. Mouth appears clean without thrush. NECK: Supple. No adenopathy. No JVD. CARDIOVASCULAR: Regular rate and rhythm. No murmurs. LUNGS: Clear to auscultation bilaterally. No crackles. No wheezes. ABDOMEN: Soft and nontender. No organomegaly. EXTREMITIES: No cyanosis, no clubbing, no edema. SKIN: On the right chest, blisters with erythema noted. LABORATORY DATA: White count 4.6, hemoglobin 11.9, hematocrit 36.7, MCV 94, platelet count of 273 with neutrophils of 62%. Sodium 135, potassium 4.6, chloride 100, bicarbonate 28, BUN 7, creatinine 0.7, glucose 99, and calcium 9.5. Total bilirubin 0.6. AST 12, ALT 16, and alkaline phosphatase 95. Total protein 7.2. Albumin 3. ASSESSMENT: 1. This is a 67-year-old lady with history of hypertension, breast cancer, who comes in with right chest shingles. 2. Hypertension. 3. COPD. PLAN: 1. Continue acyclovir seven more days . 2. We will follow up the patient clinically. 3. Continue Doppler precautions. 4. Continue airborne isolation. I would like to thank, Dr. Mcgrath, for this consultation. Huma Serna M.D. DR: NEELAM JOB#: [id number] CC: Kenroy Mcgrath M.D.
[2018-01-15 16:00] VITALS: BP 101/56
[2018-01-15 19:11] VITALS: BP 102/61
[2018-01-16] VITALS: BP 112/64
[2018-01-16] MEDS: Albuterol/Ipratropium 3ml neb HHN SCH ×4 (00:35→19:00)
[2018-01-16] MEDS: Morphine Sulfate 2mg/ml Inj IVP PRN ×5 (01:28→20:08)
[2018-01-16 04:00] VITALS: BP 122/75
[2018-01-16] MEDS: Lacosamide 50mg tablet ORAL SCH ×2 (09:09→21:28)
[2018-01-16] MEDS: Ascorbic Acid 500mg tab ORAL SCH (09:10)
[2018-01-16] MEDS: Lyrica 50mg cap ORAL SCH ×3 (09:10→17:41)
[2018-01-16] MEDS: Magnesium Oxide 400mg tab ORAL SCH ×3 (09:10→17:41)
[2018-01-16] MEDS: Amantadine 100mg cap ORAL SCH (09:10)
[2018-01-16] MEDS: Aspirin Baby 81mg NG SCH (09:10)
[2018-01-16] MEDS: DULoxetine 30mg cap ORAL SCH (09:11)
[2018-01-16] MEDS: MS Contin 15mg tab ORAL SCH ×2 (09:12→21:28)
[2018-01-16] MEDS: Sensipar 30mg Tab ORAL SCH (09:13)
[2018-01-16] MEDS: Carvedilol 6.25mg Tab ORAL SCH ×2 (09:13→21:00)
[2018-01-16] MEDS: Heparin 5000 units/ml inj SUBQ SCH ×2 (09:16→21:23)
[2018-01-16 12:00] VITALS: BP 108/50
--- NOTE | 2018-01-16 12:07 | Infectious Diseases Prog Note ---
Assessment/Plan Assessment/Plan A: Herpes zoster Neuropathy HPN Function Quadriplegia P: Continue Acyclovir Subjective ROS Limited/Unobtainable: No Gastrointestinal/Abdominal: Reports: no symptoms Musculoskeletal: Reports: pain, other - general Allergies: Coded Allergies: CEFEPIME (Unverified Allergy, Unknown, 11/03/17) LEVOFLOXACIN (Unverified Allergy, Unknown, 11/03/17) PENICILLINS (Unverified Allergy, Unknown, 11/03/17) Objective Vital Signs Last 24 Hour Vital Signs Date Time Temp Pulse Resp B/P (MAP) Pulse Ox O2 Delivery O2 Flow Rate FiO2 01/16/18 10:11 97.7 01/16/18 10:11 97.7 01/16/18 10:09 97.7 01/16/18 09:13 79 122/75 01/16/18 09:12 97.7 01/16/18 07:54 80 18 98 Nasal Cannula 2.0 01/16/18 07:44 Nasal Cannula 2.0 01/16/18 07:44 95 Nasal Cannula 2.0 01/16/18 07:44 79 18 95 Nasal Cannula 2.0 01/16/18 04:00 97.7 81 21 122/75 98 Nasal Cannula 2.0 97.7 01/16/18 01:28 97.0 01/16/18 00:43 88 20 100 Nasal Cannula 2.0 01/16/18 00:35 86 20 100 Nasal Cannula 2.0 01/16/18 00:13 97.0 01/16/18 00:00 98.2 83 22 112/64 Nasal Cannula 2.0 98.2 01/15/18 23:14 97.0 01/15/18 20:58 80 102/61 01/15/18 20:20 Nasal Cannula 01/15/18 20:15 Nasal Cannula 2.0 01/15/18 20:07 Nasal Cannula 2.0 01/15/18 20:07 100 Nasal Cannula 2.0 01/15/18 20:04 80 20 100 Nasal Cannula 2.0 01/15/18 19:11 97.0 81 20 102/61 98 Nasal Cannula 97.0 01/15/18 16:00 97.9 78 20 101/56 99 97.9 01/15/18 13:25 Nasal Cannula 01/15/18 13:00 Nasal Cannula Height (Feet): 5 Height (Inches): 5.00 Weight (Pounds): 250 General Appearance: no acute distress HEENT: mucous membranes moist Respiratory/Chest: lungs clear Cardiovascular: normal rate Abdomen: soft, non tender Extremities: no edema Skin: rash, other - R flunk area Neurologic/Psychiatric: alert, responsive Microbiology Date/Time Source Procedure Growth Status 01/13/18 18:30 Rectum VRE Culture - Final Enterococcus Faecalis - Vre Complete Current Medications Medications (Trade) Dose Ordered Sig/Saira Route PRN Reason Start Time Stop Time Status Last Admin Dose Admin Acetaminophen (Tylenol) 650 mg Q6H PRN ORAL Mild Pain/Temp > 100.5 01/13/18 16:45 02/12/18 16:44 01/14/18 20:45 Acyclovir (Zovirax) 800 mg FIVE TIMES A DAY ORAL 01/13/18 19:00 02/12/18 18:59 01/16/18 10:36 Albuterol/ Ipratropium (Albuterol/ Ipratropium) 3 ml Q6HRT HHN 01/13/18 19:00 01/18/18 18:59 01/16/18 07:44 Albuterol/ Ipratropium (Albuterol/ Ipratropium) 3 ml Q6HRT PRN HHN SOB/WHEEZING 01/13/18 19:00 01/18/18 18:59 Amantadine HCl (Symmetrel) 100 mg DAILY ORAL 01/14/18 09:00 02/13/18 08:59 01/16/18 09:10 Ascorbic Acid (Vitamin C) 250 mg DAILY ORAL 01/14/18 09:00 02/13/18 08:59 01/16/18 09:10 Aspirin (ASA) 81 mg DAILY NG 01/14/18 09:00 02/13/18 08:59 01/16/18 09:10 Atorvastatin Calcium (Lipitor) 10 mg BEDTIME ORAL 01/13/18 21:00 02/12/18 20:59 01/15/18 20:57 Carvedilol (Coreg) 6.25 mg EVERY 12 HOURS ORAL 01/13/18 21:00 02/12/18 20:59 01/16/18 09:13 Cinacalcet (Sensipar) 30 mg DAILY ORAL 01/14/18 09:00 02/13/18 08:59 01/16/18 09:13 Duloxetine HCl (Cymbalta) 60 mg DAILY ORAL 01/14/18 09:00 02/13/18 08:59 01/16/18 09:11 Famotidine (Pepcid) 20 mg DAILY ORAL 01/14/18 09:00 02/13/18 08:59 01/16/18 09:12 Folic Acid (Folate) 1 mg DAILY ORAL 01/14/18 09:00 02/13/18 08:59 01/16/18 09:10 Furosemide (Lasix) 20 mg DAILY ORAL 01/14/18 09:00 02/13/18 08:59 01/16/18 09:12 Gabapentin (Neurontin) 300 mg THREE TIMES A DAY ORAL 01/13/18 18:00 02/12/18 17:59 01/16/18 09:12 Heparin Sodium (Porcine) (Heparin 5000 units/ml) 5,000 units EVERY 12 HOURS SUBQ 01/13/18 21:00 02/12/18 20:59 01/16/18 09:16 Lacosamide (Vimpat) 50 mg Q12HR ORAL 01/13/18 21:00 02/12/18 20:59 01/16/18 09:09 Magnesium Hydroxide (Mom) 30 ml HSPRN PRN ORAL Constipation 01/13/18 16:45 02/12/18 16:44 Magnesium Oxide (Mag-Ox 400mg) 400 mg THREE TIMES A DAY ORAL 01/13/18 18:00 02/12/18 17:59 01/16/18 09:10 Morphine Sulfate (MS Contin) 15 mg Q12HR ORAL 01/13/18 21:00 01/20/18 20:59 01/16/18 09:12 Morphine Sulfate (Morphine Sulfate) 1 mg Q4H PRN IVP Breakthrough Pain 01/14/18 09:30 01/21/18 09:29 01/16/18 10:09 Multivitamins (Multivitamins) 1 tab DAILY ORAL 01/14/18 09:00 02/13/18 08:59 01/16/18 09:10 Oxycodone/ Acetaminophen (Percocet 10/325) 1 tab Q4H PRN ORAL Severe Breakthru Pain (>7) 01/13/18 18:00 01/20/18 17:59 01/15/18 23:14 Potassium Chloride (K-Dur) 10 meq DAILY ORAL 01/14/18 09:00 02/13/18 08:59 01/16/18 09:11 Pregabalin (Lyrica) 50 mg THREE TIMES A DAY ORAL 01/14/18 18:00 02/13/18 17:59 01/16/18 09:10 Chris Arroyo MD Jan 16, 2018 12:07
--- NOTE | 2018-01-16 17:04 | General Progress Note ---
Assessment/Plan Problem List: (1) Seizure ICD Codes: R56.9 - Unspecified convulsions SNOMED: 54416664 (2) Neuropathy ICD Codes: G62.9 - Polyneuropathy, unspecified SNOMED: 696283781 (3) Pneumonia ICD Codes: J18.9 - Pneumonia, unspecified organism SNOMED: 411918343 (4) Functional quadriplegia ICD Codes: R53.2 - Functional quadriplegia SNOMED: 023964275836097 (5) DVT (deep vein thrombosis) in ICD Codes: O22.30 - Deep phlebothrombosis in , unspecified trimester; I82.409 - Acute embolism and thrombosis of unspecified deep veins of unspecified lower extremity SNOMED: 16140775, 453448444 (6) Shingles ICD Codes: B02.9 - Zoster without complications SNOMED: 1103957 Status: stable, progressing Assessment/Plan abx per ID pain rx adjusted skin care antiplt rx sz rx Subjective ROS Limited/Unobtainable: No Constitutional: Reports: malaise, weakness HEENT: Reports: no symptoms Cardiovascular: Reports: no symptoms Respiratory: Reports: cough Gastrointestinal/Abdominal: Reports: no symptoms Genitourinary: Reports: no symptoms Neurologic/Psychiatric: Reports: no symptoms Endocrine: Reports: no symptoms Hematologic/Lymphatic: Reports: no symptoms Allergies: Coded Allergies: CEFEPIME (Unverified Allergy, Unknown, 11/03/17) LEVOFLOXACIN (Unverified Allergy, Unknown, 11/03/17) PENICILLINS (Unverified Allergy, Unknown, 11/03/17) All Systems: reviewed and negative except above Subjective c/o abd pain. on iv morphine, on acyclovir. lyrica and ms contin added pain better controlled. still blisters- not dry yet Objective Last 24 Hour Vital Signs Date Time Temp Pulse Resp B/P (MAP) Pulse Ox O2 Delivery O2 Flow Rate FiO2 01/16/18 16:07 98.2 01/16/18 15:37 98.2 01/16/18 14:35 98.2 01/16/18 13:36 98.2 01/16/18 12:23 78 21 97 Nasal Cannula 2.0 28 01/16/18 12:12 74 18 98 Nasal Cannula 2.0 28 01/16/18 12:00 98.2 78 20 108/50 95 98.2 7/5/18 10:11 97.7 01/16/18 10:09 97.7 01/16/18 09:13 79 122/75 01/16/18 09:12 97.7 01/16/18 07:54 80 18 98 Nasal Cannula 2.0 01/16/18 07:44 Nasal Cannula 2.0 01/16/18 07:44 95 Nasal Cannula 2.0 01/16/18 07:44 79 18 95 Nasal Cannula 2.0 01/16/18 04:00 97.7 81 21 122/75 98 Nasal Cannula 2.0 97.7 01/16/18 01:28 97.0 01/16/18 00:43 88 20 100 Nasal Cannula 2.0 01/16/18 00:35 86 20 100 Nasal Cannula 2.0 01/16/18 00:00 98.2 83 22 112/64 Nasal Cannula 2.0 98.2 01/15/18 23:14 97.0 01/15/18 20:58 80 102/61 01/15/18 20:20 Nasal Cannula 01/15/18 20:15 Nasal Cannula 2.0 01/15/18 20:07 Nasal Cannula 2.0 01/15/18 20:07 100 Nasal Cannula 2.0 01/15/18 20:04 80 20 100 Nasal Cannula 2.0 01/15/18 19:11 97.0 81 20 102/61 98 Nasal Cannula 97.0 Intake and Output 01/15/18 01/16/18 19:00 07:00 Intake Total 600 ml 600 ml Output Total 950 ml Balance 600 ml -350 ml Intake Oral 600 ml 600 ml Output Urine Total 950 ml # Bowel Movements 1 Height (Feet): 5 Height (Inches): 5.00 Weight (Pounds): 250 Objective General Appearance: WD/WN, alert Neck: supple Cardiovascular: regular rhythm Respiratory/Chest: lungs clear Abdomen: normal bowel sounds, non tender, no organomegaly Edema: no edema noted Arm (L), no edema noted Arm (R), no edema noted Leg (L), no edema noted Leg (R), no edema noted Pedal (L), no edema noted Pedal (R), no edema noted 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 MD Jan 16, 2018 17:04
[2018-01-17] VITALS: BP 105/73
[2018-01-17] MEDS: Albuterol/Ipratropium 3ml neb HHN SCH ×4 (00:20→19:00)
[2018-01-17] MEDS: Morphine Sulfate 2mg/ml Inj IVP PRN ×4 (01:34→16:45)
[2018-01-17 08:05] VITALS: BP 115/70
[2018-01-17] MEDS: Amantadine 100mg cap ORAL SCH (08:59)
[2018-01-17] MEDS: DULoxetine 30mg cap ORAL SCH (08:59)
[2018-01-17] MEDS: Aspirin Baby 81mg NG SCH (08:59)
[2018-01-17] MEDS: Ascorbic Acid 500mg tab ORAL SCH (09:00)
[2018-01-17] MEDS: Sensipar 30mg Tab ORAL SCH (09:00)
[2018-01-17] MEDS: Magnesium Oxide 400mg tab ORAL SCH ×3 (09:01→17:47)
[2018-01-17] MEDS: Lyrica 50mg cap ORAL SCH ×3 (09:01→17:47)
[2018-01-17] MEDS: MS Contin 15mg tab ORAL SCH ×2 (09:01→21:11)
[2018-01-17] MEDS: Carvedilol 6.25mg Tab ORAL SCH ×2 (09:01→21:00)
[2018-01-17] MEDS: Lacosamide 50mg tablet ORAL SCH ×2 (09:01→21:09)
[2018-01-17] MEDS: Heparin 5000 units/ml inj SUBQ SCH ×2 (09:06→21:17)
--- NOTE | 2018-01-17 10:41 | Infectious Diseases Prog Note ---
Assessment/Plan Assessment/Plan antibiotics : acyclovir 7.2.18 - A 1. right chest shingles 2. hypertension 3. COPD 4. rectal VRE colonization P 1, continue po acyclovir 5 more days 2. continue airborne isolation Subjective Constitutional: Denies: fever, chills Respiratory: Reports: dry cough; Denies: shortness of breath Gastrointestinal/Abdominal: Denies: nausea, vomiting, diarrhea Musculoskeletal: Reports: pain Allergies: Coded Allergies: CEFEPIME (Unverified Allergy, Unknown, 11/03/17) LEVOFLOXACIN (Unverified Allergy, Unknown, 11/03/17) PENICILLINS (Unverified Allergy, Unknown, 11/03/17) Objective Vital Signs Last 24 Hour Vital Signs Date Time Temp Pulse Resp B/P (MAP) Pulse Ox O2 Delivery O2 Flow Rate FiO2 01/17/18 10:23 97.5 01/17/18 10:00 97.5 01/17/18 09:01 97.5 01/17/18 09:01 89 115/70 01/17/18 08:05 97.5 89 22 115/70 97 Nasal Cannula 2.0 97.5 01/17/18 07:58 Nasal Cannula 2.0 01/17/18 07:57 98 Nasal Cannula 2.0 01/17/18 07:55 Nasal Cannula 01/17/18 07:54 Nasal Cannula 01/17/18 00:21 Nasal Cannula 01/17/18 00:21 Nasal Cannula 01/17/18 00:00 98.1 82 20 105/73 96 Nasal Cannula 2.0 98.1 01/16/18 21:00 80 95/56 01/16/18 20:36 Nasal Cannula 01/16/18 20:35 Nasal Cannula 01/16/18 20:35 96 Nasal Cannula 2.0 01/16/18 20:35 Nasal Cannula 2.0 28 01/16/18 16:07 98.2 01/16/18 15:37 98.2 01/16/18 14:35 98.2 01/16/18 13:36 98.2 01/16/18 12:23 78 21 97 Nasal Cannula 2.0 28 01/16/18 12:12 74 18 98 Nasal Cannula 2.0 28 01/16/18 12:00 98.2 78 20 108/50 95 98.2 Height (Feet): 5 Height (Inches): 5.00 Weight (Pounds): 250 Respiratory/Chest: lungs clear Cardiovascular: normal rate, regular rhythm, no gallop/murmur Abdomen: soft, non tender Extremities: no edema Skin: rash - on right chest and back with blisters, erythema Current Medications Medications (Trade) Dose Ordered Sig/Saira Route PRN Reason Start Time Stop Time Status Last Admin Dose Admin Acetaminophen (Tylenol) 650 mg Q6H PRN ORAL Mild Pain/Temp > 100.5 01/13/18 16:45 02/12/18 16:44 01/14/18 20:45 Acyclovir (Zovirax) 800 mg FIVE TIMES A DAY ORAL 01/13/18 19:00 02/12/18 18:59 01/17/18 09:08 Albuterol/ Ipratropium (Albuterol/ Ipratropium) 3 ml Q6HRT HHN 01/13/18 19:00 01/18/18 18:59 01/16/18 12:12 Albuterol/ Ipratropium (Albuterol/ Ipratropium) 3 ml Q6HRT PRN HHN SOB/WHEEZING 01/13/18 19:00 01/18/18 18:59 Amantadine HCl (Symmetrel) 100 mg DAILY ORAL 01/14/18 09:00 02/13/18 08:59 01/17/18 08:59 Ascorbic Acid (Vitamin C) 250 mg DAILY ORAL 01/14/18 09:00 02/13/18 08:59 01/17/18 09:00 Aspirin (ASA) 81 mg DAILY NG 01/14/18 09:00 02/13/18 08:59 01/17/18 08:59 Atorvastatin Calcium (Lipitor) 10 mg BEDTIME ORAL 01/13/18 21:00 02/12/18 20:59 01/16/18 21:28 Carvedilol (Coreg) 6.25 mg EVERY 12 HOURS ORAL 01/13/18 21:00 02/12/18 20:59 01/17/18 09:01 Cinacalcet (Sensipar) 30 mg DAILY ORAL 01/14/18 09:00 02/13/18 08:59 01/17/18 09:00 Duloxetine HCl (Cymbalta) 60 mg DAILY ORAL 01/14/18 09:00 02/13/18 08:59 01/17/18 08:59 Famotidine (Pepcid) 20 mg DAILY ORAL 01/14/18 09:00 02/13/18 08:59 01/17/18 09:00 Folic Acid (Folate) 1 mg DAILY ORAL 01/14/18 09:00 02/13/18 08:59 01/17/18 08:59 Furosemide (Lasix) 20 mg DAILY ORAL 01/14/18 09:00 02/13/18 08:59 01/17/18 09:00 Gabapentin (Neurontin) 300 mg THREE TIMES A DAY ORAL 01/13/18 18:00 02/12/18 17:59 01/17/18 09:00 Heparin Sodium (Porcine) (Heparin 5000 units/ml) 5,000 units EVERY 12 HOURS SUBQ 01/13/18 21:00 02/12/18 20:59 01/17/18 09:06 Lacosamide (Vimpat) 50 mg Q12HR ORAL 01/13/18 21:00 02/12/18 20:59 01/17/18 09:01 Magnesium Hydroxide (Mom) 30 ml HSPRN PRN ORAL Constipation 01/13/18 16:45 02/12/18 16:44 Magnesium Oxide (Mag-Ox 400mg) 400 mg THREE TIMES A DAY ORAL 01/13/18 18:00 02/12/18 17:59 01/17/18 09:01 Morphine Sulfate (MS Contin) 15 mg Q12HR ORAL 01/13/18 21:00 01/20/18 20:59 01/17/18 09:01 Morphine Sulfate (Morphine Sulfate) 1 mg Q4H PRN IVP Breakthrough Pain 01/14/18 09:30 01/21/18 09:29 01/17/18 10:23 Multivitamins (Multivitamins) 1 tab DAILY ORAL 01/14/18 09:00 02/13/18 08:59 01/17/18 09:09 Oxycodone/ Acetaminophen (Percocet 10/325) 1 tab Q4H PRN ORAL Severe Breakthru Pain (>7) 01/13/18 18:00 01/20/18 17:59 01/17/18 04:56 Potassium Chloride (K-Dur) 10 meq DAILY ORAL 01/14/18 09:00 02/13/18 08:59 01/17/18 08:59 Pregabalin (Lyrica) 50 mg THREE TIMES A DAY ORAL 01/14/18 18:00 02/13/18 17:59 01/17/18 09:01 CHRISTY GALICIA Jan 17, 2018 10:41
[2018-01-17 16:01] VITALS: BP 107/68
--- NOTE | 2018-01-17 16:58 | General Progress Note ---
Assessment/Plan Problem List: (1) Seizure ICD Codes: R56.9 - Unspecified convulsions SNOMED: 76911483 (2) Neuropathy ICD Codes: G62.9 - Polyneuropathy, unspecified SNOMED: 885107594 (3) Pneumonia ICD Codes: J18.9 - Pneumonia, unspecified organism SNOMED: 669537272 (4) Functional quadriplegia ICD Codes: R53.2 - Functional quadriplegia SNOMED: 295771768070816 (5) DVT (deep vein thrombosis) in ICD Codes: O22.30 - Deep phlebothrombosis in , unspecified trimester; I82.409 - Acute embolism and thrombosis of unspecified deep veins of unspecified lower extremity SNOMED: 87479325, 716225906 (6) Shingles ICD Codes: B02.9 - Zoster without complications SNOMED: 1723335 Status: stable, progressing Assessment/Plan abx per ID pain rx adjusted skin care antiplt rx sz rx dc planning this weekend if blisters dry Subjective ROS Limited/Unobtainable: No Constitutional: Reports: malaise, weakness HEENT: Reports: no symptoms Cardiovascular: Reports: no symptoms Respiratory: Reports: no symptoms Gastrointestinal/Abdominal: Reports: abdominal pain Genitourinary: Reports: no symptoms Neurologic/Psychiatric: Reports: pre-existing deficit Endocrine: Reports: no symptoms Hematologic/Lymphatic: Reports: no symptoms Allergies: Coded Allergies: CEFEPIME (Unverified Allergy, Unknown, 11/03/17) LEVOFLOXACIN (Unverified Allergy, Unknown, 11/03/17) PENICILLINS (Unverified Allergy, Unknown, 11/03/17) All Systems: reviewed and negative except above Subjective c/o abd pain. on iv morphine, on acyclovir. lyrica and ms contin added. still c/ o pain. . still blisters- not dry yet Objective Last 24 Hour Vital Signs Date Time Temp Pulse Resp B/P (MAP) Pulse Ox O2 Delivery O2 Flow Rate FiO2 01/17/18 16:45 98.7 01/17/18 16:01 98.7 79 20 107/68 (81) 100 98.7 01/17/18 14:05 Nasal Cannula 01/17/18 14:03 Nasal Cannula 01/17/18 10:53 97.5 01/17/18 10:23 97.5 01/17/18 10:00 97.5 01/17/18 09:01 97.5 01/17/18 09:01 89 115/70 01/17/18 08:05 97.5 89 22 115/70 97 Nasal Cannula 2.0 97.5 01/17/18 08:00 Nasal Cannula 2.0 01/17/18 07:58 Nasal Cannula 2.0 28 01/17/18 07:57 98 Nasal Cannula 2.0 28 01/17/18 07:55 Nasal Cannula 01/17/18 07:54 Nasal Cannula 01/17/18 00:21 Nasal Cannula 01/17/18 00:21 Nasal Cannula 01/17/18 00:00 98.1 82 20 105/73 96 Nasal Cannula 2.0 98.1 01/16/18 21:00 80 95/56 01/16/18 20:36 Nasal Cannula 01/16/18 20:35 Nasal Cannula 01/16/18 20:35 96 Nasal Cannula 2.0 28 01/16/18 20:35 Nasal Cannula 2.0 28 Intake and Output 01/16/18 01/17/18 19:00 07:00 Intake Total 1230 ml 200 ml Output Total 1300 ml 300 ml Balance -70 ml -100 ml Intake Oral 1230 ml 200 ml Output Urine Total 1300 ml 300 ml # Voids 2 # Bowel Movements 2 Height (Feet): 5 Height (Inches): 5.00 Weight (Pounds): 250 Objective General Appearance: WD/WN, alert Neck: supple Cardiovascular: regular rhythm Respiratory/Chest: lungs clear Abdomen: normal bowel sounds, non tender, no organomegaly Edema: no edema noted Arm (L), no edema noted Arm (R), no edema noted Leg (L), no edema noted Leg (R), no edema noted Pedal (L), no edema noted Pedal (R), no edema noted 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
[2018-01-17 20:00] VITALS: BP 105/51
[2018-01-18] VITALS: BP 119/55
[2018-01-18] MEDS: Albuterol/Ipratropium 3ml neb HHN SCH ×3 (00:37→13:00)
[2018-01-18 04:00] VITALS: BP 115/55
[2018-01-18 08:00] VITALS: BP 118/58
[2018-01-18] MEDS: Aspirin Baby 81mg NG SCH (08:47)
[2018-01-18] MEDS: Amantadine 100mg cap ORAL SCH (08:47)
[2018-01-18] MEDS: Lacosamide 50mg tablet ORAL SCH ×2 (08:47→20:44)
[2018-01-18] MEDS: Sensipar 30mg Tab ORAL SCH (08:48)
[2018-01-18] MEDS: Carvedilol 6.25mg Tab ORAL SCH ×2 (08:48→20:44)
[2018-01-18] MEDS: Magnesium Oxide 400mg tab ORAL SCH ×3 (08:48→17:39)
[2018-01-18] MEDS: Lyrica 50mg cap ORAL SCH ×3 (08:48→17:39)
[2018-01-18] MEDS: DULoxetine 30mg cap ORAL SCH (08:49)
[2018-01-18] MEDS: Ascorbic Acid 500mg tab ORAL SCH (08:49)
[2018-01-18] MEDS: MS Contin 15mg tab ORAL SCH ×2 (08:49→20:43)
[2018-01-18] MEDS: Heparin 5000 units/ml inj SUBQ SCH ×2 (08:51→20:45)
--- NOTE | 2018-01-18 11:06 | General Progress Note ---
Assessment/Plan Problem List: (1) Seizure ICD Codes: R56.9 - Unspecified convulsions SNOMED: 62492827 (2) Neuropathy ICD Codes: G62.9 - Polyneuropathy, unspecified SNOMED: 314815969 (3) Pneumonia ICD Codes: J18.9 - Pneumonia, unspecified organism SNOMED: 184284826 (4) Functional quadriplegia ICD Codes: R53.2 - Functional quadriplegia SNOMED: 828447515540790 (5) DVT (deep vein thrombosis) in ICD Codes: O22.30 - Deep phlebothrombosis in , unspecified trimester; I82.409 - Acute embolism and thrombosis of unspecified deep veins of unspecified lower extremity SNOMED: 43070931, 917235782 (6) Shingles ICD Codes: B02.9 - Zoster without complications SNOMED: 7423014 Status: stable, progressing Assessment/Plan abx per ID pain rx adjusted skin care antiplt rx sz rx dc planning this weekend if blisters dry Subjective ROS Limited/Unobtainable: No Constitutional: Reports: malaise, weakness HEENT: Reports: no symptoms Cardiovascular: Reports: no symptoms Respiratory: Reports: no symptoms Gastrointestinal/Abdominal: Reports: abdominal pain Genitourinary: Reports: no symptoms Neurologic/Psychiatric: Reports: no symptoms Endocrine: Reports: no symptoms Hematologic/Lymphatic: Reports: no symptoms Allergies: Coded Allergies: CEFEPIME (Unverified Allergy, Unknown, 11/03/17) LEVOFLOXACIN (Unverified Allergy, Unknown, 11/03/17) PENICILLINS (Unverified Allergy, Unknown, 11/03/17) All Systems: reviewed and negative except above Subjective c/o abd pain. on iv morphine, on acyclovir. lyrica and ms contin added. still c/ o pain. . still blisters- not dry yet Objective Last 24 Hour Vital Signs Date Time Temp Pulse Resp B/P (MAP) Pulse Ox O2 Delivery O2 Flow Rate FiO2 01/18/18 10:51 97.7 01/18/18 09:48 97.7 01/18/18 09:21 Nasal Cannula 2.0 01/18/18 08:49 97.7 01/18/18 08:48 72 118/58 01/18/18 08:00 97.8 72 19 118/58 (78) 95 97.8 01/18/18 07:35 Nasal Cannula 2.0 28 01/18/18 07:35 Nasal Cannula 2.0 28 01/18/18 07:35 96 Nasal Cannula 2.0 28 01/18/18 07:35 Nasal Cannula 2.0 28 01/18/18 06:51 97.7 01/18/18 05:52 97.7 01/18/18 04:00 97.7 74 18 115/55 (75) 95 97.7 01/18/18 00:37 Nasal Cannula 01/18/18 00:37 Nasal Cannula 01/18/18 00:25 98.2 01/18/18 00:00 98.2 80 18 119/55 (76) 93 98.2 01/17/18 21:11 98.2 01/17/18 21:00 78 100/51 01/17/18 21:00 Nasal Cannula 2.0 01/17/18 20:00 98.2 77 18 105/51 (69) 97 98.2 01/17/18 19:38 Nasal Cannula 01/17/18 19:38 Nasal Cannula 01/17/18 19:38 97 Nasal Cannula 2.0 28 01/17/18 19:38 Nasal Cannula 2.0 28 01/17/18 18:46 98.7 01/17/18 17:15 98.7 01/17/18 16:45 98.7 01/17/18 16:01 98.7 79 20 107/68 (81) 100 98.7 01/17/18 14:05 Nasal Cannula 01/17/18 14:03 Nasal Cannula Intake and Output 01/17/18 01/18/18 19:00 07:00 Intake Total 1075 ml 720 ml Output Total 1100 ml 350 ml Balance -25 ml 370 ml Intake Oral 1075 ml 720 ml Output Urine Total 1100 ml 350 ml Height (Feet): 5 Height (Inches): 5.00 Weight (Pounds): 250 Objective General Appearance: WD/WN, alert Neck: supple Cardiovascular: regular rhythm Respiratory/Chest: lungs clear Abdomen: normal bowel sounds, non tender, no organomegaly Edema: no edema noted Arm (L), no edema noted Arm (R), no edema noted Leg (L), no edema noted Leg (R), no edema noted Pedal (L), no edema noted Pedal (R), no edema noted 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
[2018-01-18 12:00] VITALS: BP 117/65
[2018-01-18 16:00] VITALS: BP 104/59
[2018-01-18] MEDS: Morphine Sulfate 2mg/ml Inj IVP PRN (19:25)
[2018-01-18 20:00] VITALS: BP 117/78
[2018-01-19] VITALS: BP 129/68
[2018-01-19 04:00] VITALS: BP 121/68
[2018-01-19 08:00] VITALS: BP 122/73
[2018-01-19 08:33] LABS: BASOPHILS % (AUTO) 1.2 % (0.0-2.0); EOSINOPHILS % (AUTO) 4.3 % (0.0-3.0); HEMATOCRIT 35.6 % (37.0-47.0); HEMOGLOBIN 11.7 G/DL (12.0-16.0); LYMPHOCYTES % (AUTO) 49.1 % (20.0-45.0); MEAN CORPUSCULAR VOLUME 95 FL (80-99); MONOCYTES % (AUTO) 4.9 % (1.0-10.0); NEUTROPHILS % (AUTO) 40.5 % (45.0-75.0); PLATELET COUNT 287 K/UL (150-450); RED BLOOD COUNT 3.75 M/UL (4.20-5.40); RED CELL DISTRIBUTION WIDTH 15.1 % (11.6-14.8); WHITE BLOOD COUNT 5.4 K/UL (4.8-10.8)
[2018-01-19 08:55] LABS: ALANINE AMINOTRANSFERASE 20 U/L (12-78); ALBUMIN 3.2 G/DL (3.4-5.0); ALBUMIN/GLOBULIN RATIO 0.7 (1.0-2.7); ALKALINE PHOSPHATASE 94 U/L (46-116); ANION GAP 1 mmol/L (5-15); ASPARTATE AMINO TRANSFERASE 13 U/L (15-37); BILIRUBIN,TOTAL 0.4 MG/DL (0.2-1.0); BLOOD UREA NITROGEN 22 mg/dL (7-18); CALCIUM 9.5 MG/DL (8.5-10.1); CARBON DIOXIDE 33 MMOL/L (21-32); CHLORIDE 104 MMOL/L (98-107); CREATININE 0.7 MG/DL (0.55-1.30); POTASSIUM 4.4 MMOL/L (3.5-5.1); SODIUM 138 MMOL/L (136-145)
--- NOTE | 2018-01-19 09:50 | General Progress Note ---
Assessment/Plan Problem List: (1) Seizure ICD Codes: R56.9 - Unspecified convulsions SNOMED: 45656216 (2) Neuropathy ICD Codes: G62.9 - Polyneuropathy, unspecified SNOMED: 914269056 (3) Pneumonia ICD Codes: J18.9 - Pneumonia, unspecified organism SNOMED: 680249274 (4) Functional quadriplegia ICD Codes: R53.2 - Functional quadriplegia SNOMED: 551755106040253 (5) DVT (deep vein thrombosis) in ICD Codes: O22.30 - Deep phlebothrombosis in , unspecified trimester; I82.409 - Acute embolism and thrombosis of unspecified deep veins of unspecified lower extremity SNOMED: 25666808, 501723924 (6) Shingles ICD Codes: B02.9 - Zoster without complications SNOMED: 5757203 Status: stable, progressing Assessment/Plan abx per ID pain rx adjusted skin care antiplt rx sz rx dc planning this tomorrow if blisters dry Subjective ROS Limited/Unobtainable: No Constitutional: Reports: malaise, weakness HEENT: Reports: no symptoms Cardiovascular: Reports: no symptoms Respiratory: Reports: no symptoms Gastrointestinal/Abdominal: Reports: abdominal pain Genitourinary: Reports: no symptoms Neurologic/Psychiatric: Reports: pre-existing deficit Endocrine: Reports: no symptoms Hematologic/Lymphatic: Reports: no symptoms Allergies: Coded Allergies: CEFEPIME (Unverified Allergy, Unknown, 11/03/17) LEVOFLOXACIN (Unverified Allergy, Unknown, 11/03/17) PENICILLINS (Unverified Allergy, Unknown, 11/03/17) All Systems: reviewed and negative except above Subjective c/o abd pain. on iv morphine, on acyclovir. lyrica and ms contin added. still c/ o pain. . still blisters- not dry yet. has small patch off fluid filled blisters Objective Last 24 Hour Vital Signs Date Time Temp Pulse Resp B/P (MAP) Pulse Ox O2 Delivery O2 Flow Rate FiO2 01/19/18 04:00 98.3 72 19 121/68 (85) 97 98.3 01/19/18 01:22 79 18 97 Nasal Cannula 2.0 28 01/19/18 01:22 79 18 97 Nasal Cannula 2.0 28 01/19/18 00:00 98.3 74 20 129/68 (88) 96 98.3 01/18/18 21:00 Nasal Cannula 2.0 01/18/18 20:58 Nasal Cannula 2.0 28 01/18/18 20:58 97 Nasal Cannula 2.0 28 01/18/18 20:44 80 117/78 01/18/18 20:00 99.2 80 20 117/78 (91) 98 99.2 01/18/18 19:25 97.7 01/18/18 19:00 Nasal Cannula 2.0 28 01/18/18 19:00 Nasal Cannula 2.0 28 01/18/18 16:01 97.7 01/18/18 16:00 98.9 79 19 104/59 (74) 96 98.9 01/18/18 15:02 97.7 01/18/18 13:30 Nasal Cannula 2.0 28 01/18/18 13:30 Nasal Cannula 2.0 28 01/18/18 12:00 98.0 81 20 117/65 (82) 95 98.0 01/18/18 10:51 97.7 Intake and Output 01/18/18 01/19/18 19:00 07:00 Intake Total 600 ml 300 ml Balance 600 ml 300 ml Intake Oral 600 ml 300 ml # Bowel Movements 1 Laboratory Tests 01/19/18 06:40: White Blood Count 5.4, Red Blood Count 3.75L, Hemoglobin 11.7L, Hematocrit 35.6L , Mean Corpuscular Volume 95, Mean Corpuscular Hemoglobin 31.2H, Mean Corpuscular Hemoglobin Concent 32.8, Red Cell Distribution Width 15.1H, Platelet Count 287, Mean Platelet Volume 5.6L, Neutrophils (%) (Auto) 40.5L, Lymphocytes (%) (Auto) 49.1H, Monocytes (%) (Auto) 4.9, Eosinophils (%) (Auto) 4.3H, Basophils (%) (Auto) 1.2, Sodium Level 138, Potassium Level 4.4, Chloride Level 104, Carbon Dioxide Level 33H, Anion Gap 1L, Blood Urea Nitrogen 22H, Creatinine 0.7, Estimat Glomerular Filtration Rate > 60, Glucose Level 92, Calcium Level 9.5, Total Bilirubin 0.4, Aspartate Amino Transf (AST/SGOT) 13L, Alanine Aminotransferase (ALT/SGPT) 20, Alkaline Phosphatase 94, Total Protein 7.6, Albumin 3.2L, Globulin 4.4, Albumin/Globulin Ratio 0.7L Height (Feet): 5 Height (Inches): 5.00 Weight (Pounds): 250 Objective General Appearance: WD/WN, alert Neck: supple Cardiovascular: regular rhythm Respiratory/Chest: lungs clear Abdomen: normal bowel sounds, non tender, no organomegaly. small crop of fluid filled blister right LQ Edema: no edema noted Arm (L), no edema noted Arm (R), no edema noted Leg (L), no edema noted Leg (R), no edema noted Pedal (L), no edema noted Pedal (R), no edema noted Generalized Neurologic: senior sql dba II-XII grossly normal, alert, oriented x 3, normal mood/affect Kenroy Mcgrath MD Jan 19, 2018 09:50
[2018-01-19] MEDS: Carvedilol 6.25mg Tab ORAL SCH ×2 (10:00→21:00)
[2018-01-19] MEDS: Amantadine 100mg cap ORAL SCH (10:00)
[2018-01-19] MEDS: Aspirin Baby 81mg NG SCH (10:00)
[2018-01-19] MEDS: DULoxetine 30mg cap ORAL SCH (10:00)
[2018-01-19] MEDS: Lacosamide 50mg tablet ORAL SCH ×2 (10:01→22:56)
[2018-01-19] MEDS: Sensipar 30mg Tab ORAL SCH (10:01)
[2018-01-19] MEDS: Ascorbic Acid 500mg tab ORAL SCH (10:02)
[2018-01-19] MEDS: Lyrica 50mg cap ORAL SCH ×3 (10:03→17:17)
[2018-01-19] MEDS: Magnesium Oxide 400mg tab ORAL SCH ×3 (10:03→17:18)
[2018-01-19] MEDS: MS Contin 15mg tab ORAL SCH ×2 (10:11→22:55)
[2018-01-19] MEDS: Heparin 5000 units/ml inj SUBQ SCH ×2 (10:11→23:01)
[2018-01-19 12:00] VITALS: BP 118/68
[2018-01-19] MEDS: Morphine Sulfate 2mg/ml Inj IVP PRN ×2 (12:49→18:10)
--- NOTE | 2018-01-19 13:29 | Infectious Diseases Prog Note ---
Assessment/Plan Assessment/Plan A: Herpes zoster Neuropathy HPN Function Quadriplegia P: Continue Acyclovir Subjective ROS Limited/Unobtainable: No Constitutional: Reports: no symptoms Respiratory: Reports: no symptoms Cardiovascular: Reports: no symptoms Gastrointestinal/Abdominal: Reports: no symptoms Musculoskeletal: Reports: pain Allergies: Coded Allergies: CEFEPIME (Unverified Allergy, Unknown, 11/03/17) LEVOFLOXACIN (Unverified Allergy, Unknown, 11/03/17) PENICILLINS (Unverified Allergy, Unknown, 11/03/17) Objective Vital Signs Last 24 Hour Vital Signs Date Time Temp Pulse Resp B/P (MAP) Pulse Ox O2 Delivery O2 Flow Rate FiO2 01/19/18 12:49 98.3 01/19/18 11:00 98.3 01/19/18 11:00 98.3 01/19/18 10:11 98.3 01/19/18 10:03 98.3 01/19/18 10:00 72 121/68 01/19/18 08:00 98.0 76 20 122/73 (89) 98 98.0 01/19/18 04:00 98.3 72 19 121/68 (85) 97 98.3 01/19/18 01:22 79 18 97 Nasal Cannula 2.0 28 01/19/18 01:22 79 18 97 Nasal Cannula 2.0 28 01/19/18 00:00 98.3 74 20 129/68 (88) 96 98.3 01/18/18 21:00 Nasal Cannula 2.0 01/18/18 20:58 Nasal Cannula 2.0 28 01/18/18 20:58 97 Nasal Cannula 2.0 28 01/18/18 20:44 80 117/78 01/18/18 20:00 99.2 80 20 117/78 (91) 98 99.2 01/18/18 19:25 97.7 01/18/18 19:00 Nasal Cannula 2.0 28 01/18/18 19:00 Nasal Cannula 2.0 28 01/18/18 16:00 98.9 79 19 104/59 (74) 96 98.9 01/18/18 15:02 97.7 01/18/18 13:30 Nasal Cannula 2.0 28 01/18/18 13:30 Nasal Cannula 2.0 28 Height (Feet): 5 Height (Inches): 5.00 Weight (Pounds): 250 General Appearance: no acute distress, other - obese HEENT: mucous membranes moist Respiratory/Chest: lungs clear Cardiovascular: normal rate Abdomen: soft, non tender Extremities: no edema Skin: other - rash , drying vesicles inR abdomen Laboratory Tests Test 01/19/18 06:40 White Blood Count 5.4 K/UL (4.8-10.8) Red Blood Count 3.75 M/UL (4.20-5.40) L Hemoglobin 11.7 G/DL (12.0-16.0) L Hematocrit 35.6 % (37.0-47.0) L Mean Corpuscular Volume 95 FL (80-99) Mean Corpuscular Hemoglobin 31.2 PG (27.0-31.0) H Mean Corpuscular Hemoglobin Concent 32.8 G/DL (32.0-36.0) Red Cell Distribution Width 15.1 % (11.6-14.8) H Platelet Count 287 K/UL (150-450) Mean Platelet Volume 5.6 FL (6.5-10.1) L Neutrophils (%) (Auto) 40.5 % (45.0-75.0) L Lymphocytes (%) (Auto) 49.1 % (20.0-45.0) H Monocytes (%) (Auto) 4.9 % (1.0-10.0) Eosinophils (%) (Auto) 4.3 % (0.0-3.0) H Basophils (%) (Auto) 1.2 % (0.0-2.0) Sodium Level 138 MMOL/L (136-145) Potassium Level 4.4 MMOL/L (3.5-5.1) Chloride Level 104 MMOL/L (98-107) Carbon Dioxide Level 33 MMOL/L (21-32) H Anion Gap 1 mmol/L (5-15) L Blood Urea Nitrogen 22 mg/dL (7-18) H Creatinine 0.7 MG/DL (0.55-1.30) Estimat Glomerular Filtration Rate > 60 mL/min (>60) Glucose Level 92 MG/DL (74-106) Calcium Level 9.5 MG/DL (8.5-10.1) Total Bilirubin 0.4 MG/DL (0.2-1.0) Aspartate Amino Transf (AST/SGOT) 13 U/L (15-37) L Alanine Aminotransferase (ALT/SGPT) 20 U/L (12-78) Alkaline Phosphatase 94 U/L (46-116) Total Protein 7.6 G/DL (6.4-8.2) Albumin 3.2 G/DL (3.4-5.0) L Globulin 4.4 g/dL Albumin/Globulin Ratio 0.7 (1.0-2.7) L Current Medications Medications (Trade) Dose Ordered Sig/Saira Route PRN Reason Start Time Stop Time Status Last Admin Dose Admin Acetaminophen (Tylenol) 650 mg Q6H PRN ORAL Mild Pain/Temp > 100.5 01/13/18 16:45 02/12/18 16:44 01/14/18 20:45 Acyclovir (Zovirax) 800 mg FIVE TIMES A DAY ORAL 01/13/18 19:00 02/12/18 18:59 01/19/18 12:49 Amantadine HCl (Symmetrel) 100 mg DAILY ORAL 01/14/18 09:00 02/13/18 08:59 01/19/18 10:00 Ascorbic Acid (Vitamin C) 250 mg DAILY ORAL 01/14/18 09:00 02/13/18 08:59 01/19/18 10:02 Aspirin (ASA) 81 mg DAILY NG 01/14/18 09:00 02/13/18 08:59 01/19/18 10:00 Atorvastatin Calcium (Lipitor) 10 mg BEDTIME ORAL 01/13/18 21:00 02/12/18 20:59 01/18/18 20:44 Carvedilol (Coreg) 6.25 mg EVERY 12 HOURS ORAL 01/13/18 21:00 02/12/18 20:59 01/19/18 10:00 Cinacalcet (Sensipar) 30 mg DAILY ORAL 01/14/18 09:00 02/13/18 08:59 01/19/18 10:01 Diphenhydramine HCl (Benadryl) 50 mg Q6H PRN ORAL Itching 01/18/18 11:15 02/17/18 11:14 01/18/18 20:54 Duloxetine HCl (Cymbalta) 60 mg DAILY ORAL 01/14/18 09:00 02/13/18 08:59 01/19/18 10:00 Famotidine (Pepcid) 20 mg DAILY ORAL 01/14/18 09:00 02/13/18 08:59 01/19/18 10:01 Folic Acid (Folate) 1 mg DAILY ORAL 01/14/18 09:00 02/13/18 08:59 01/19/18 10:01 Furosemide (Lasix) 20 mg DAILY ORAL 01/14/18 09:00 02/13/18 08:59 01/19/18 10:01 Gabapentin (Neurontin) 300 mg THREE TIMES A DAY ORAL 01/13/18 18:00 02/12/18 17:59 01/19/18 12:45 Heparin Sodium (Porcine) (Heparin 5000 units/ml) 5,000 units EVERY 12 HOURS SUBQ 01/13/18 21:00 02/12/18 20:59 01/19/18 10:11 Lacosamide (Vimpat) 50 mg Q12HR ORAL 01/13/18 21:00 02/12/18 20:59 01/19/18 10:01 Magnesium Hydroxide (Mom) 30 ml HSPRN PRN ORAL Constipation 01/13/18 16:45 02/12/18 16:44 Magnesium Oxide (Mag-Ox 400mg) 400 mg THREE TIMES A DAY ORAL 01/13/18 18:00 02/12/18 17:59 01/19/18 12:45 Morphine Sulfate (MS Contin) 15 mg Q12HR ORAL 01/13/18 21:00 01/20/18 20:59 01/19/18 10:11 Morphine Sulfate (Morphine Sulfate) 1 mg Q4H PRN IVP Breakthrough Pain 01/14/18 09:30 01/21/18 09:29 01/19/18 12:49 Multivitamins (Multivitamins) 1 tab DAILY ORAL 01/14/18 09:00 02/13/18 08:59 01/19/18 10:00 Oxycodone/ Acetaminophen (Percocet 10/325) 1 tab Q4H PRN ORAL Severe Breakthru Pain (>7) 01/13/18 18:00 01/20/18 17:59 01/19/18 10:03 Potassium Chloride (K-Dur) 10 meq DAILY ORAL 01/14/18 09:00 02/13/18 08:59 01/19/18 10:01 Pregabalin (Lyrica) 50 mg THREE TIMES A DAY ORAL 01/14/18 18:00 02/13/18 17:59 01/19/18 12:45 Chris Arroyo MD Jan 19, 2018 13:29
[2018-01-19 16:00] VITALS: BP 119/76
[2018-01-19 20:00] VITALS: BP 100/63
[2018-01-20] VITALS: BP 102/59
[2018-01-20 04:00] VITALS: BP 113/69
[2018-01-20 08:00] VITALS: BP 137/65
[2018-01-20] MEDS: Magnesium Oxide 400mg tab ORAL SCH ×2 (08:44→14:01)
[2018-01-20] MEDS: Sensipar 30mg Tab ORAL SCH (08:44)
[2018-01-20] MEDS: Lacosamide 50mg tablet ORAL SCH (08:44)
[2018-01-20] MEDS: Amantadine 100mg cap ORAL SCH (08:45)
[2018-01-20] MEDS: DULoxetine 30mg cap ORAL SCH (08:45)
[2018-01-20] MEDS: Carvedilol 6.25mg Tab ORAL SCH (08:45)
[2018-01-20] MEDS: Aspirin Baby 81mg NG SCH (08:45)
[2018-01-20] MEDS: Morphine Sulfate 2mg/ml Inj IVP PRN ×2 (08:46→14:02)
[2018-01-20] MEDS: MS Contin 15mg tab ORAL SCH (08:46)
[2018-01-20] MEDS: Lyrica 50mg cap ORAL SCH ×2 (08:46→14:02)
[2018-01-20] MEDS: Heparin 5000 units/ml inj SUBQ SCH (08:50)
[2018-01-20] MEDS: Ascorbic Acid 500mg tab ORAL SCH (08:51)
[2018-01-20 12:00] VITALS: BP 119/61
--- NOTE | 2018-01-21 00:30 | Discharge Summary ---
DATE OF ADMISSION: 01/13/2018 DATE OF DISCHARGE: 01/20/2018 ADMISSION DIAGNOSES: 1. Disseminated zoster. 2. History of stroke. 3. Hypertension. 4. Seizure disorder. 5. History of chronic pain and fibromyalgia. DISCHARGE DIAGNOSES: 1. Disseminated zoster. 2. History of stroke. 3. Hypertension. 4. Seizure disorder. 5. History of chronic pain and fibromyalgia. HOSPITAL COURSE: The patient is a pleasant female, admitted with complaints of disseminated zoster. She received initially oral acyclovir. She [facility] not be kept at the [facility] because of no isolation beds. The patient was admitted. Lesions were initially wet, but on discharge, the blisters had dried. She will be discharged to complete her oral acyclovir. She did require high doses of pain medications for post herpetic neuralgia. The patient will be followed up in one to two days at the senior care facility. DIET: Cardiac diet. ACTIVITY: Ad-kavitha. Kenroy Mcgrath M.D. DR: MAYCO JOB#: [id number] CC:
== END 2018-01-20 14:50 | DRG 865 ==
LOC: 4W 13:31
DX: B02.7 Disseminated zoster (principal); R53.2 Functional quadriplegia; J18.9 Pneumonia, unspecified organism; I82.409 Acute embolism and thrombosis of unspecified deep veins of unspecified lower extremity; B02.29 Other postherpetic nervous system involvement; I11.9 Hypertensive heart disease without heart failure; Z88.1 Allergy status to other antibiotic agents; Z88.0 Allergy status to penicillin; Z88.8 Allergy status to other drugs, medicaments and biological substances; Z86.73 Personal history of transient ischemic attack (TIA), and cerebral infarction without residual deficits; J44.9 Chronic obstructive pulmonary disease, unspecified; M79.7 Fibromyalgia; Z85.3 Personal history of malignant neoplasm of breast; G62.9 Polyneuropathy, unspecified; R56.9 Unspecified convulsions
CPT/HCPCS: 36415; 80053; 85025; 87081; 94640; 94664; 94760; J7620

== ENCOUNTER 2018-04-18 16:52 | Inpatient (IN) | payer MEDICARE, MEDICAID ==
[~2018-04-18] VITALS: Ht 165.1 cm; Wt 120.7 kg
[2018-04-19 05:26] VITALS: BP 119/59
[2018-04-19] MEDS ORDERED: MULTIVITAMINS1 EAC8 ORAL (06:14)
[2018-04-19] MEDS ORDERED: PERCOCET 10-321 EAC1 PO (06:14)
[2018-04-19] MEDS ORDERED: FOLIC ACID1 MG ORAL (06:14)
[2018-04-19] MEDS ORDERED: CARVEDILOL6.25 MG ORAL (06:14)
[2018-04-19] MEDS ORDERED: ACETAMINOP160 MG/54 ORAL (06:14)
[2018-04-19] MEDS ORDERED: FUROSEMIDE20 M1 ORAL (06:14)
[2018-04-19] MEDS ORDERED: FAMOTIDINE20 MG ORAL (06:14)
[2018-04-19] MEDS ORDERED: DUONEB 0.5-3(2.53 ML HHN (06:14)
[2018-04-19] MEDS ORDERED: VITAMIN B-1000 MCG/1 IM (06:14)
[2018-04-19] MEDS ORDERED: ARTIFICIAL TEAR15 ML BOTH EYES (06:14)
[2018-04-19] MEDS ORDERED: VIMPAT50 MG PO (06:14)
[2018-04-19] MEDS ORDERED: LYRICA75 M1 ORAL (06:14)
[2018-04-19] MEDS ORDERED: GABAPENTIN300 MG ORAL (06:14)
[2018-04-19] MEDS ORDERED: ZOFRAN4 M3 ORAL (06:14)
[2018-04-19] MEDS ORDERED: MILK OF MA400 MG/51 ORAL (06:14)
[2018-04-19] MEDS ORDERED: POTASSIUM CHLO20 ME3 PO (06:14)
[2018-04-19] MEDS ORDERED: CYMBALTA60 MG ORAL (06:14)
[2018-04-19] MEDS ORDERED: FERROUSUL325 M1 PO (06:14)
[2018-04-19] MEDS ORDERED: ATORVASTATIN CA10 MG ORAL (06:14)
[2018-04-19] MEDS ORDERED: ASPIRIN81 MG ORAL (06:14)
[2018-04-19] MEDS ORDERED: ASCORBIC ACID250 M1 ORAL (06:14)
[2018-04-19] MEDS ORDERED: SENSIPAR30 MG ORAL (06:14)
[2018-04-19] MEDS ORDERED: AMANTADINE100 M2 ORAL (06:14)
[2018-04-19] MEDS ORDERED: Acetaminophen 650mg/20.3ml ORAL PRN (07:15)
[2018-04-19] MEDS ORDERED: Albuterol/Ipratropium 3ml neb HHN PRN (07:15)
[2018-04-19] MEDS ORDERED: Milk of Magnesia 30ml Ud ORAL PRN (07:15)
[2018-04-19] MEDS ORDERED: Morphine Sulfate 2mg/ml Inj IVP PRN (08:00)
[2018-04-19 08:30] VITALS: BP 128/69
[2018-04-19] MEDS: Heparin 5000 units/ml inj SUBQ SCH ×2 (09:00→21:00)
[2018-04-19] MEDS: Multivitamin w/Minerals tab ORAL SCH (09:40)
[2018-04-19] MEDS: Lyrica 75mg cap ORAL SCH ×3 (09:40→18:25)
[2018-04-19] MEDS: DULoxetine 30mg cap ORAL SCH (09:41)
[2018-04-19] MEDS: Aspirin Baby 81mg ORAL SCH (09:41)
[2018-04-19] MEDS: Carvedilol 6.25mg Tab ORAL SCH ×2 (09:41→21:01)
[2018-04-19] MEDS: Amantadine 100mg cap ORAL SCH (09:43)
[2018-04-19] MEDS: Ascorbic Acid 500mg tab ORAL SCH (09:43)
[2018-04-19] MEDS: Sensipar 30mg Tab ORAL SCH (09:43)
--- NOTE | 2018-04-19 10:00 | History and Physical Report ---
DATE OF ADMISSION: 04/19/2018 CHIEF COMPLAINT: COPD exacerbation and possible pneumonia. HISTORY OF PRESENT ILLNESS: The patient is a pleasant 67-year-old female. 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 She complained of shortness of breath. She received some breathing treatments at the long-term facility, but her shortness of breath did not improve. In fact, it actually worsened failed respond to outpatient therapy. She has now been admitted for further evaluation and care. She denies any fevers or chills. She does complain of right leg pain and right wrist pain, which is new. She has a history of hypertensive heart disease, congestive heart failure, COPD, gastroesophageal reflux disease, and depression as well as a prior stroke. PAST SURGICAL HISTORY: Includes a mastectomy. CURRENT MEDICATIONS: Reconciled and reviewed. ALLERGIES: Include cefepime, levofloxacin, and penicillin. FAMILY HISTORY: Noncontributory. SOCIAL HISTORY: There is no known history of alcohol or drugs. The patient was previously a smoker. REVIEW OF SYSTEMS: GENERAL: No fevers or chills. HEENT: No headaches or visual changes. CARDIOPULMONARY: Positive chest pain and shortness of breath. Positive wheezing. GASTROINTESTINAL: No nausea or vomiting. GENITOURINARY: No urgency or frequency. MUSCULOSKELETAL: Positive left leg and right wrist pain. NEUROLOGIC: seizures. PHYSICAL EXAMINATION: VITAL SIGNS: Temperature 98 degrees, pulse 71, respirations 15, and blood pressure 119/59. GENERAL: The patient is well developed, in no apparent distress. HEART: Regular rate and rhythm. LUNGS: Significant scattered wheezes. ABDOMEN: Soft, nontender, and nondistended. EXTREMITIES: Without clubbing, cyanosis, or edema. LABORATORY AND DIAGNOSTIC DATA: Laboratories are pending. Chest x-ray is pending. ASSESSMENT: This is a pleasant female with complaints of shortness of breath and chest pain suspect secondary to chronic obstructive pulmonary disease exacerbation. 1. Chronic obstructive pulmonary disease exacerbation. 2. Pneumonia. 3. Rule out acute coronary syndrome. 4. Right wrist and leg pain, unclear etiology. 5. History of stroke. 6. History of breast cancer. PLAN: 1. IV steroids. 2. Respiratory treatments [id number]. 3. Pain medications as needed. 4. Check venous duplex of the legs. 5. We will order an x-ray of the wrist. 6. Pulmonary and Cardiology consultations were obtained. 7. We will also obtain urinalysis. 8. Consider repeat echocardiogram. Kenroy Mcgrath M.D. DR: IRINA JOB#: [id number] CC:
--- NOTE | 2018-04-19 10:13 | Diagnostic Imaging Report ---
RIGHT WRIST, Views INDICATION: Pain COMPARISON: None FINDINGS: 3 views of the right wrist are obtained. Slight irregularity at the neck of the fifth metacarpal, cannot exclude fracture, correlation can be obtained with dedicated x-ray of the hand. Bone mineralization and alignment are within normal limits. Joint spaces are preserved. Soft tissues are within normal limits. IMPRESSION: Slight irregularity at the neck of the fifth metacarpal, cannot exclude fracture, correlation can be obtained with dedicated x-ray of the hand.
--- NOTE | 2018-04-19 10:23 | Diagnostic Imaging Report ---
INDICATION: Shortness breath COMPARISON: Chest x-ray dated 11/03/17 FINDINGS: Single frontal view demonstrates a prominent cardiac size. Increased pulmonary markings suggestive of congestion. No pleural effusions. The visualized osseous structures are within normal limits. IMPRESSION: Prominent cardiac size with increased pulmonary markings suggestive of congestion.
[2018-04-19] MEDS: Artificial Tears 1.4% Op Soln BOTH EYES SCH ×2 (11:29→18:25)
[2018-04-19] MEDS: Lacosamide 50mg tablet ORAL SCH ×2 (11:29→18:25)
[2018-04-19 12:00] VITALS: BP 117/76
[2018-04-19] MEDS: Solu-MEDROL 40mg Inj IVP SCH ×2 (13:43→22:00)
[2018-04-19] MEDS: Albuterol/Ipratropium 3ml neb HHN SCH ×3 (15:33→23:00)
[2018-04-19 16:26] VITALS: BP 114/64
[2018-04-19 19:03] LABS: APPEARANCE,URINE SLIGHTLY CLOUDY; BILIRUBIN, URINE NEGATIVE (NEGATIVE); COLOR,URINE PALE YELLOW; GLUCOSE, URINE (UA) NEGATIVE (NEGATIVE); KETONES,URINE NEGATIVE (NEGATIVE); LEUKOCYTE ESTERASE ,URINE 2+ (NEGATIVE); NITRITE,URINE POSITIVE (NEGATIVE); PH,URINE 8 (4.5-8.0); PROTEIN,URINE NEGATIVE (NEGATIVE); UROBILINOGEN,URINE NORMAL MG/DL (0.0-1.0)
[2018-04-19 20:00] VITALS: BP 135/83
[2018-04-20] VITALS: BP 118/64
[2018-04-20] MEDS: Albuterol/Ipratropium 3ml neb HHN SCH ×6 (02:20→23:04)
[2018-04-20 04:00] VITALS: BP 110/52
[2018-04-20 08:00] VITALS: BP 113/54
[2018-04-20] MEDS: Heparin 5000 units/ml inj SUBQ SCH ×2 (09:00→21:14)
[2018-04-20] MEDS: Artificial Tears 1.4% Op Soln BOTH EYES SCH ×2 (09:49→18:21)
[2018-04-20] MEDS: Lacosamide 50mg tablet ORAL SCH ×2 (09:50→17:49)
[2018-04-20] MEDS: Aspirin Baby 81mg ORAL SCH (09:51)
[2018-04-20] MEDS: Carvedilol 6.25mg Tab ORAL SCH ×2 (09:51→20:20)
[2018-04-20] MEDS: DULoxetine 30mg cap ORAL SCH (09:52)
[2018-04-20] MEDS: Amantadine 100mg cap ORAL SCH (09:52)
[2018-04-20] MEDS: Ascorbic Acid 500mg tab ORAL SCH (09:52)
[2018-04-20] MEDS: Lyrica 75mg cap ORAL SCH ×3 (09:53→17:49)
[2018-04-20] MEDS: Sensipar 30mg Tab ORAL SCH (09:53)
[2018-04-20] MEDS: Multivitamin w/Minerals tab ORAL SCH (09:53)
[2018-04-20 12:00] VITALS: BP 131/69
--- NOTE | 2018-04-20 14:59 | General Progress Note ---
Assessment/Plan Problem List: (1) Diastolic CHF, acute on chronic ICD Codes: I50.33 - Acute on chronic diastolic (congestive) heart failure SNOMED: 81583801, 085802469 (2) CVA (cerebral vascular accident) ICD Codes: I63.9 - Cerebral infarction, unspecified SNOMED: 037229099 (3) Seizure ICD Codes: R56.9 - Unspecified convulsions SNOMED: 27010185 (4) Pneumonia ICD Codes: J18.9 - Pneumonia, unspecified organism SNOMED: 717476358 (5) Functional quadriplegia ICD Codes: R53.2 - Functional quadriplegia SNOMED: 122141040443124 (6) COPD with asthma ICD Codes: J44.9 - Chronic obstructive pulmonary disease, unspecified SNOMED: 20814594008847964 (7) COPD exacerbation ICD Codes: J44.1 - Chronic obstructive pulmonary disease with (acute) exacerbation SNOMED: 183104920 Status: stable, progressing Assessment/Plan resp rx o2 iv abx iv steroids iv lasix cards follow up sz rx pain rx echo Subjective ROS Limited/Unobtainable: No Constitutional: Reports: malaise, weakness HEENT: Reports: no symptoms Cardiovascular: Reports: chest pain Respiratory: Reports: no symptoms Gastrointestinal/Abdominal: Reports: no symptoms Genitourinary: Reports: no symptoms Neurologic/Psychiatric: Reports: pre-existing deficit Endocrine: Reports: no symptoms Hematologic/Lymphatic: Reports: no symptoms Allergies: Coded Allergies: CEFEPIME (Unverified Allergy, Unknown, 11/03/17) LEVOFLOXACIN (Unverified Allergy, Unknown, 11/03/17) PENICILLINS (Unverified Allergy, Unknown, 11/03/17) All Systems: reviewed and negative except above Subjective stable. cxr ?chf. on iv steroids and resp rx. possible uti Objective Last 24 Hour Vital Signs Date Time Temp Pulse Resp B/P (MAP) Pulse Ox O2 Delivery O2 Flow Rate FiO2 04/20/18 12:00 97.9 90 19 131/69 (89) 97 97.9 04/20/18 10:31 72 18 99 Nasal Cannula 2.0 28 04/20/18 10:22 72 18 100 Nasal Cannula 2.0 28 04/20/18 09:53 97.8 04/20/18 09:51 74 113/54 04/20/18 09:00 Nasal Cannula 2.0 04/20/18 08:00 97.8 74 19 113/54 (73) 97 97.8 04/20/18 07:00 Nasal Cannula 2.0 28 04/20/18 07:00 Nasal Cannula 2.0 28 04/20/18 07:00 Nasal Cannula 2.0 28 04/20/18 07:00 98 Nasal Cannula 2.0 28 04/20/18 04:00 97.8 70 16 110/52 (71) 98 97.8 04/20/18 02:27 81 18 99 Nasal Cannula 2.0 28 04/20/18 02:20 74 18 97 Nasal Cannula 2.0 28 04/20/18 00:00 98.1 73 16 118/64 (82) 95 98.1 04/19/18 23:16 Nasal Cannula 2.0 28 04/19/18 23:16 Nasal Cannula 2.0 28 04/19/18 21:01 99 135/83 04/19/18 21:00 Nasal Cannula 2.0 04/19/18 20:00 96.9 99 15 135/83 (100) 99 96.9 04/19/18 19:54 79 20 99 Nasal Cannula 2.0 28 04/19/18 19:48 Nasal Cannula 2.0 28 04/19/18 19:47 98 Nasal Cannula 2.0 28 04/19/18 19:46 77 20 Nasal Cannula 2.0 28 04/19/18 19:44 77 20 98 Nasal Cannula 2.0 28 04/19/18 16:26 98.1 66 18 114/64 (81) 99 98.1 04/19/18 15:57 72 20 99 Nasal Cannula 2.0 28 04/19/18 15:47 70 22 99 Nasal Cannula 2.0 28 Intake and Output 04/19/18 04/20/18 19:00 07:00 Intake Total 720 ml 640 ml Output Total 625 ml Balance 720 ml 15 ml Intake Oral 720 ml 640 ml Output Urine Total 625 ml # Voids 3 Laboratory Tests 04/19/18 18:40: Urine Color Pale yellow, Urine Appearance Slightly cloudy, Urine pH 8, Urine Specific [place] 1.010, Urine Protein Negative, Urine Glucose (UA) Negative, Urine Ketones Negative, Urine Blood Negative, Urine Nitrite PositiveH, Urine Bilirubin Negative, Urine Urobilinogen Normal, Urine Leukocyte Esterase 2+H, Urine RBC 0, Urine WBC 10-15H, Urine Squamous Epithelial Cells ModerateH, Urine Bacteria ManyH Height (Feet): 5 Height (Inches): 5.00 Weight (Pounds): 266 General Appearance: WD/WN, alert Cardiovascular: regular rhythm Respiratory/Chest: rhonchi - bilaterally, expiratory wheezing Abdomen: normal bowel sounds, non tender, soft, no organomegaly Edema: trace edema 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
[2018-04-20 16:00] VITALS: BP 118/72
[2018-04-20 20:00] VITALS: BP 104/54
[2018-04-20] MEDS: Morphine Sulfate 2mg/ml Inj IM PRN (21:15)
[2018-04-20] MEDS ORDERED: Meropenem 500 MG in NS 55 ML IVPB SCH (22:00)
[2018-04-21] VITALS: BP 115/60
[2018-04-21] MEDS: Albuterol/Ipratropium 3ml neb HHN SCH ×6 (03:21→23:26)
[2018-04-21 04:00] VITALS: BP 129/73
--- NOTE | 2018-04-21 05:00 | Progress Note ---
DATE: 04/20/2018 CARDIOLOGY PROGRESS NOTE SUBJECTIVE: The patient is still with some congestion. She remains on IV steroids and bronchodilators. Her venous duplex scan revealed bilateral recanalized DVTs. Chest radiograph revealed increased pulmonary venous pressure and possible edema. OBJECTIVE: VITAL SIGNS: Blood pressure 131/69, pulse 90, respiratory rate 19, afebrile. LUNGS: Few rhonchi, no wheezing. HEART: Regular rhythm and rate. Normal S1, S2. ABDOMEN: Soft. EXTREMITIES: Trace edema. IMPRESSION: 1. Acute on chronic diastolic congestive heart failure. 2. Cerebrovascular disease. 3. Seizure disorder. 4. Healthcare acquired pneumonia. 5. Quadriplegia. 6. COPD exacerbation. 7. Chronic bilateral lower extremity DVTs with increased risk of pulmonary emboli. PLAN: 1. Steroids. 2. Antimicrobials. 3. Nasal oxygen. 4. Diuresis. 5. CT angio of the chest. 6. Follow up echocardiogram. Carlos Eduardo Andino M.D. DR: JOSE JUAN JOB#: [id number] CC:
--- NOTE | 2018-04-21 07:54 | General Progress Note ---
Assessment/Plan Problem List: (1) Diastolic CHF, acute on chronic ICD Codes: I50.33 - Acute on chronic diastolic (congestive) heart failure SNOMED: 79523150, 552449758 (2) CVA (cerebral vascular accident) ICD Codes: I63.9 - Cerebral infarction, unspecified SNOMED: 479896105 (3) Seizure ICD Codes: R56.9 - Unspecified convulsions SNOMED: 48671886 (4) Pneumonia ICD Codes: J18.9 - Pneumonia, unspecified organism SNOMED: 743605309 (5) Functional quadriplegia ICD Codes: R53.2 - Functional quadriplegia SNOMED: 996335425125160 (6) COPD with asthma ICD Codes: J44.9 - Chronic obstructive pulmonary disease, unspecified SNOMED: 38782877273191061 (7) COPD exacerbation ICD Codes: J44.1 - Chronic obstructive pulmonary disease with (acute) exacerbation SNOMED: 541624460 Status: stable Assessment/Plan resp rx o2 iv abx iv steroids iv lasix cards follow up sz rx pain rx v/q scan- pt refusing cta +hx chroniv dvt. +IVC filter Subjective ROS Limited/Unobtainable: No Constitutional: Reports: malaise, weakness HEENT: Reports: no symptoms Cardiovascular: Reports: no symptoms Respiratory: Reports: no symptoms Gastrointestinal/Abdominal: Reports: abdominal pain Genitourinary: Reports: no symptoms Neurologic/Psychiatric: Reports: pre-existing deficit Endocrine: Reports: no symptoms Hematologic/Lymphatic: Reports: no symptoms Allergies: Coded Allergies: CEFEPIME (Unverified Allergy, Unknown, 11/03/17) LEVOFLOXACIN (Unverified Allergy, Unknown, 11/03/17) PENICILLINS (Unverified Allergy, Unknown, 11/03/17) All Systems: reviewed and negative except above Subjective c/o right sided abd pain. in same area as recent shingles outbreak. no chest pain decreased sob. GNR in urine. on abx refusing CTA(doesnt want contrast) Objective Last 24 Hour Vital Signs Date Time Temp Pulse Resp B/P (MAP) Pulse Ox O2 Delivery O2 Flow Rate FiO2 04/21/18 04:00 97.7 75 18 129/73 (91) 100 97.7 04/21/18 03:33 75 18 98 Nasal Cannula 2.0 28 04/21/18 03:22 73 16 97 Nasal Cannula 2.0 28 04/21/18 00:00 98.2 71 16 115/60 (78) 100 98.2 04/20/18 23:14 74 16 99 Nasal Cannula 2.0 28 04/20/18 23:04 72 18 98 Nasal Cannula 2.0 28 04/20/18 21:15 97.0 04/20/18 21:00 Nasal Cannula 2.0 04/20/18 20:20 70 104/54 04/20/18 20:00 97.0 70 19 104/54 (71) 99 97.0 04/20/18 19:45 78 18 99 Nasal Cannula 2.0 28 04/20/18 19:35 75 20 99 Nasal Cannula 2.0 28 04/20/18 19:35 99 Nasal Cannula 2.0 28 04/20/18 19:35 Nasal Cannula 2.0 28 04/20/18 16:00 98.0 65 18 118/72 (87) 100 98.0 04/20/18 15:25 Nasal Cannula 2.0 04/20/18 15:25 Nasal Cannula 2.0 04/20/18 12:00 97.9 90 19 131/69 (89) 97 97.9 04/20/18 10:31 72 18 99 Nasal Cannula 2.0 28 04/20/18 10:22 72 18 100 Nasal Cannula 2.0 28 04/20/18 09:53 97.8 04/20/18 09:51 74 113/54 04/20/18 09:00 Nasal Cannula 2.0 04/20/18 08:00 97.8 74 19 113/54 (73) 97 97.8 Intake and Output 04/20/18 04/21/18 19:00 07:00 Intake Total 540 ml 800 ml Output Total 650 ml 700 ml Balance -110 ml 100 ml Intake Oral 540 ml 800 ml Output Urine Total 650 ml 700 ml Height (Feet): 5 Height (Inches): 5.00 Weight (Pounds): 266 Objective General Appearance: WD/WN, alert Cardiovascular: regular rhythm Respiratory/Chest: rhonchi - bilaterally, expiratory wheezing Abdomen: normal bowel sounds, non tender, soft, no organomegaly Edema: trace edema 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
[2018-04-21 08:00] VITALS: BP 127/74
[2018-04-21] MEDS: Carvedilol 6.25mg Tab ORAL SCH ×2 (08:43→20:59)
[2018-04-21] MEDS: Multivitamin w/Minerals tab ORAL SCH (08:44)
[2018-04-21] MEDS: DULoxetine 30mg cap ORAL SCH (08:44)
[2018-04-21] MEDS: Ascorbic Acid 500mg tab ORAL SCH (08:44)
[2018-04-21] MEDS: Lacosamide 50mg tablet ORAL SCH ×2 (08:44→17:47)
[2018-04-21] MEDS: Lyrica 75mg cap ORAL SCH ×3 (08:45→17:47)
[2018-04-21] MEDS: Sensipar 30mg Tab ORAL SCH (08:45)
[2018-04-21] MEDS: Amantadine 100mg cap ORAL SCH (08:45)
[2018-04-21] MEDS: Morphine Sulfate 2mg/ml Inj IM PRN ×2 (08:48→17:14)
[2018-04-21] MEDS: Aspirin Baby 81mg ORAL SCH (09:00)
[2018-04-21] MEDS ORDERED: Levofloxacin 500mg tab ORAL SCH (09:00)
[2018-04-21] MEDS: Heparin 5000 units/ml inj SUBQ SCH ×2 (09:00→21:01)
[2018-04-21 10:16] LABS: BASOPHILS % (AUTO) 1.2 % (0.0-2.0); HEMATOCRIT 39.8 % (37.0-47.0); HEMOGLOBIN 12.5 G/DL (12.0-16.0); LYMPHOCYTES % (AUTO) 27.8 % (20.0-45.0); MEAN CORPUSCULAR VOLUME 90 FL (80-99); MONOCYTES % (AUTO) 6.8 % (1.0-10.0); NEUTROPHILS % (AUTO) 63.2 % (45.0-75.0); PLATELET COUNT 233 K/UL (150-450); RED BLOOD COUNT 4.45 M/UL (4.20-5.40); RED CELL DISTRIBUTION WIDTH 15.3 % (11.6-14.8); WHITE BLOOD COUNT 7.7 K/UL (4.8-10.8)
[2018-04-21 10:49] LABS: ALANINE AMINOTRANSFERASE 18 U/L (12-78); ALBUMIN/GLOBULIN RATIO 0.7 (1.0-2.7); ALKALINE PHOSPHATASE 111 U/L (46-116); ANION GAP 4 mmol/L (5-15); ASPARTATE AMINO TRANSFERASE 10 U/L (15-37); BILIRUBIN,TOTAL 0.5 MG/DL (0.2-1.0); CALCIUM 9.5 MG/DL (8.5-10.1); CARBON DIOXIDE 33 MMOL/L (21-32); CHLORIDE 104 MMOL/L (98-107); CREATININE 0.6 MG/DL (0.55-1.30); SODIUM 141 MMOL/L (136-145)
[2018-04-21 10:55] LABS: BLOOD UREA NITROGEN 23 mg/dL (7-18)
[2018-04-21] MEDS: Artificial Tears 1.4% Op Soln BOTH EYES SCH ×2 (11:50→17:47)
[2018-04-21 12:00] VITALS: BP 119/77
[2018-04-21] MEDS ORDERED: Gentamicin Rx monitoring MISC PRN (13:30)
[2018-04-21 16:00] VITALS: BP 108/52
[2018-04-21 20:05] VITALS: BP 104/60
--- NOTE | 2018-04-21 22:15 | Consultation ---
DATE OF CONSULTATION: 04/21/2018 INFECTIOUS DISEASES CONSULTATION CONSULTING PHYSICIAN: Huma Serna M.D. REFERRING PHYSICIAN: Kenroy Mcgrath M.D. REASON FOR CONSULTATION: Urinary tract infection. HISTORY OF PRESENTING ILLNESS: This is a 67-year-old lady with history of hypertension, breast cancer, status post mastectomy and radiation therapy, who came in with shortness of breath along with cough. She was found to have urinary tract infection and an Infectious Diseases consultation has been obtained for antibiotics. PAST MEDICAL HISTORY: 1. History of hypertension. 2. History of right-sided breast cancer, status post mastectomy and radiation therapy. SOCIAL HISTORY: She used to be a smoker. She does not smoke any more. She used to drink alcohol. She does not drink any more. No history of drug use. FAMILY HISTORY: Positive for colon cancer in her father and lung cancer in her mother. REVIEW OF SYSTEMS: RESPIRATORY: No fever, no chills. She does have cough. She has shortness of breath. No chest pain. CARDIAC: No chest pain. No palpitations. No dizziness. No syncope. GASTROINTESTINAL: No nausea. No vomiting. No abdominal pain or diarrhea. GENITOURINARY: She does complain of dysuria, but no hematuria. MEDICATIONS: As an inpatient, she is on vitamin B12, Levaquin, Lasix, morphine, prednisone, atorvastatin, albuterol, ipratropium, Percocet, amantadine, aspirin, carvedilol, Sensipar, Artificial Tears, Cymbalta, Pepcid, ferrous sulfate, folic acid, gabapentin, lacosamide, multivitamin, Lyrica, subcutaneous heparin, lidocaine, ascorbic acid, potassium, Tylenol, milk of magnesia, Zofran. ALLERGIES: 1. Penicillin. 2. Cefepime. 3. Levaquin. PHYSICAL EXAMINATION: VITAL SIGNS: On examination, temperature of 97.7, T-max of 98.2, pulse of 67, respiratory rate 21, blood pressure 127/74, O2 saturation 100%. HEENT: Pupils equally reactive to light and accommodation. Mouth appears clean without thrush. NECK: Supple. No adenopathy. No JVD. CARDIOVASCULAR: Regular rate and rhythm. No murmurs. LUNGS: Clear to auscultation bilaterally. No crackles. No wheezes. ABDOMEN: Soft and nontender. No organomegaly. EXTREMITIES: No cyanosis. No clubbing. Edema noted bilaterally. LABORATORY AND DIAGNOSTIC DATA: White count 7.7, hemoglobin 12.5, hematocrit 39.8, MCV 90, platelet count of 233,000; neutrophils of 63%. Urine culture is growing E. coli and gram-negative venancio. The E. coli is susceptible to ertapenem, gentamicin, imipenem, nitrofurantoin, piperacillin, tazobactam, and tigecycline. Chest x-ray is showing prominent cardiac size with increased pulmonary markings suggestive of congestion. ASSESSMENT: This is a 67-year-old lady with history of hypertension and breast cancer, status post mastectomy, who comes in with shortness of breath and cough and found to have: 1. E. coli and gram-negative urinary tract infection. The patient has been refusing IV antibiotics. 2. Levaquin allergy. The patient is complaining of itching from it. 3. Hypertension. 4. Breast cancer. PLAN: 1. We will discontinue Levaquin. 2. The patient agreeable to intramuscular antibiotic. We will start the patient on intramuscular gentamicin. The patient continues to refuse IV antibiotics. 3. We will follow up cultures and adjust antibiotics accordingly. I would like to thank Dr. Mcgrath for this consultation. Danyell Sandoval JOB#: [id number] CC:
[2018-04-22 00:04] VITALS: BP 112/56
[2018-04-22] MEDS: Morphine Sulfate 2mg/ml Inj IM PRN ×2 (02:10→15:21)
[2018-04-22] MEDS: Albuterol/Ipratropium 3ml neb HHN SCH ×5 (02:30→19:24)
[2018-04-22 04:00] VITALS: BP 102/55
[2018-04-22 07:28] VITALS: BP 100/60
[2018-04-22] MEDS: Carvedilol 6.25mg Tab ORAL SCH (08:18)
[2018-04-22] MEDS: Multivitamin w/Minerals tab ORAL SCH (08:59)
[2018-04-22] MEDS: Lyrica 75mg cap ORAL SCH ×3 (09:00→17:40)
[2018-04-22] MEDS: Amantadine 100mg cap ORAL SCH (09:00)
[2018-04-22] MEDS: Aspirin Baby 81mg ORAL SCH (09:00)
[2018-04-22] MEDS: Sensipar 30mg Tab ORAL SCH (09:01)
[2018-04-22] MEDS: Lacosamide 50mg tablet ORAL SCH ×2 (09:01→17:39)
[2018-04-22] MEDS: DULoxetine 30mg cap ORAL SCH (09:02)
[2018-04-22] MEDS: Heparin 5000 units/ml inj SUBQ SCH (09:04)
[2018-04-22] MEDS: Ascorbic Acid 500mg tab ORAL SCH (09:09)
[2018-04-22] MEDS: Artificial Tears 1.4% Op Soln BOTH EYES SCH ×2 (09:25→17:39)
[2018-04-22 12:05] VITALS: BP 103/55
--- NOTE | 2018-04-22 13:30 | Progress Note ---
DATE: 04/21/2018 CARDIOLOGY PROGRESS NOTE SUBJECTIVE: The patient has abdominal pain. No chest pain. No shortness of breath. She remains on IV antibiotics. Venous duplex scan was abnormal with bilateral chronic DVT. She has refused a CT angiogram, but will agree to a V/Q scan. She is concerned about the status of her "brain" following her stroke and bleed. OBJECTIVE: VITAL SIGNS: Blood pressure 129/73, pulse 75, and respiratory rate 18. LUNGS: Good breath sounds. No wheezing. HEART: Regular rhythm and rate. Normal S1 and S2 with a fourth heart sound. ABDOMEN: Soft. EXTREMITIES: With dependent edema, trace. LABORATORY DATA: White count 7.7 and hemoglobin 12.5. Potassium 4, BUN 23, creatinine 0.6, pro-natriuretic peptide 332, and albumin 3. IMPRESSION: 1. Urinary tract infection with sepsis. 2. Bilateral superficial DVTs of the lower extremity with history of IVC filter. 3. Acute on chronic diastolic congestive heart failure. 4. History of cerebrovascular accident. 5. Pneumonia. 6. Chronic obstructive pulmonary disease. PLAN: 1. V/Q scan. 2. Antimicrobials. 3. Titrate anti-failure regimen. 4. Steroid taper. 5. Diuresis based on clinical parameters. 6. Trend natriuretic peptide assay. Carlos Eduardo Andino M.D. DR: JUDY JOB#: [id number] CC:
[2018-04-22 16:21] VITALS: BP 124/70
[2018-04-22] MEDS ORDERED: GENTAMICIN60 MG/6 ML IV (17:04)
[2018-04-22 20:00] VITALS: BP 108/57
--- NOTE | 2018-04-23 | Discharge Summary ---
DATE OF ADMISSION: 04/19/2018 DATE OF DISCHARGE: 04/22/2018 ADMISSION DIAGNOSES: 1. Chronic obstructive pulmonary disease exacerbation. 2. Congestive heart failure. 3. Acute on chronic diastolic heart failure exacerbation. 4. History of DVT, status post IVC filter. 5. History of stroke. 6. History of seizure disorder. 7. History of chronic anemia. 8. History of breast cancer, status post mastectomy. 9. History of shingles. DISCHARGE DIAGNOSES: 1. Chronic obstructive pulmonary disease exacerbation. 2. Congestive heart failure. 3. Acute on chronic diastolic heart failure exacerbation. 4. History of DVT, status post IVC filter. 5. History of stroke. 6. History of seizure disorder. 7. History of chronic anemia. 8. History of breast cancer, status post mastectomy. 9. History of shingles. 10. Gram-negative venancio urine tract infection. HOSPITAL COURSE: The patient is a pleasant female with multiple medical problems ____ shortness of breath. She was diagnosed with COPD exacerbation as well as congestive heart failure exacerbation. She received intravenous steroids and respiratory treatments [id number]. She was diuresed. She was diagnosed with gram-negative venancio urinary tract infection. She was treated with intravenous antibiotics. These were converted to IM on discharge. On discharge, her shortness of breath has improved. She will be discharged home with close outpatient followup. DISCHARGE MEDICATIONS: Please see discharge list for discharge medications. DIET: ___ cardiac diet. ACTIVITY: Ad-kavitha. FOLLOWUP: The patient is to follow up in one to two days at correction facility. Kenroy Mcgrath M.D. DR: BRANDON JOB#: [id number] CC:
--- NOTE | 2018-04-23 02:00 | Progress Note ---
DATE: 04/22/2018 CARDIOLOGY PROGRESS NOTE SUBJECTIVE: The patient is without chest pain or shortness of breath. She is off IV steroids and continues with inhaled bronchodilator therapy. She has been diuresed. Blood pressure parameters are stable. OBJECTIVE: VITAL SIGNS: Blood pressure 108/57, pulse 67, respirations 20. LUNGS: With diminished breath sounds. No wheezing or rales. CARDIAC: Regular rhythm and rate. Normal S1, S2 with a fourth heart sound. ABDOMEN: Soft, nontender. EXTREMITIES: With no edema. IMPRESSION: 1. COPD exacerbation, improved. 2. Superficial DVT with no signs of acute pulmonary embolic event. 3. Acute on chronic diastolic congestive heart failure, now clinically compensated. 4. UTI with resolved sepsis. 5. Cerebrovascular disease with prior cerebrovascular accident. 6. Pneumonia, now clinically improved. PLAN: 1. Rehab therapy plan. 2. Oral steroid taper. 3. Inhaled bronchodilators. 4. Antimicrobials. 5. Maintain current cardiovascular regimen. 6. Discharge medication regimen reviewed and reconciled. Carlos Eduardo Andino M.D. DR: Savannah JOB#: [id number] CC:
--- NOTE | 2018-04-23 15:05 | Diagnostic Imaging Report ---
APPROVED REPORT CPT Code: 41202 Present Symptoms Comments: BILATERAL LEGS PAIN. RIGH LEG: Venous imaging reveals recanalized chronic thrombus in the superficial femoral vein. Large collateral vein noted anterior to the superficial femoral artery. The remainder of the deep venous system is within normal limits. There is no evidence of thrombus in the common femoral, popliteal or calf veins. The greater saphenous vein is also within normal limits. Doppler indicates normal spontaneous flow within these segments. LEFT LEG: Venous imaging reveals recanalized chronic thrombus in the superficial femoral vein. Large collateral vein noted anterior to the superficial femoral artery. The remainder of the deep venous system is within normal limits. There is no evidence of thrombus in the common femoral, popliteal or calf veins. The greater saphenous vein is also within normal limits. Doppler indicates normal spontaneous flow within these segments.
--- NOTE | 2018-04-26 22:32 | Consultation ---
DATE OF CONSULTATION: 04/19/2018 CARDIOLOGY CONSULTATION CONSULTING PHYSICIAN: Carlos Eduardo Andino M.D. REFERRING PHYSICIAN: Kenroy Mcgrath M.D. REASON FOR CONSULTATION: Chest pain. HISTORY OF PRESENT ILLNESS: This is a 67-year-old female. She complained of shortness of breath and some chest discomfort while being evaluated at her oncologist today for a followup where she had presented for a followup regarding her breast cancer. She had been receiving respiratory treatments at her long term facility, but did not improve and in fact worsened. She noted difficulty catching her breath and having sharp chest pain. She did not have any fevers or chills, but also noted pain in her right leg and wrist. The patient was admitted to the hospital for further evaluation. I have been asked to address the possibility of an acute coronary syndrome or other cardiopulmonary etiology for her chest discomfort. PAST MEDICAL HISTORY: Includes breast cancer status post mastectomy on the right, hypertension with hypertensive heart disease, history of diastolic congestive heart failure, gastroesophageal reflux disease, cerebrovascular disease with history of cerebrovascular accident, COPD. ALLERGIES: Include Levaquin, penicillin, and cefepime. MEDICATIONS: Medications prior to admission, reviewed and reconciled. FAMILY HISTORY: Noncontributory. SOCIAL HISTORY: Prior smoker, 30-40 pack-year history. No current smoking. No alcohol or substance abuse. REVIEW OF SYSTEMS: No fevers or chills. No loss of vision or hearing. No history of blood clotting. No prior history of heart attack. She has had reflux. She denies any change in bowel habits otherwise. She denies frequency or dysuria. She has had joint swelling and pain as noted above. There is prior history of stroke. There is no known history of diabetes or thyroid impairment. Cholesterol parameters are not known. PHYSICAL EXAMINATION: VITAL SIGNS: Blood pressure 119/59, pulse 71, respiratory rate 15, afebrile. GENERAL: Well developed, well nourished, presently in no acute respiratory distress. HEENT: Conjunctivae pink. Oropharynx clear. Mucous membranes moist. NECK: Supple. No accessory muscle use. Jugular venous pressure normal. LUNGS: With expiratory wheezes bilaterally. CARDIAC: Regular rhythm and rate. Normal S1, S2 with a fourth heart sound. CHEST WALL: Without tenderness. No skin breakdown. ABDOMEN: Soft and nontender. EXTREMITIES: Without clubbing, cyanosis, or edema. DIAGNOSTIC DATA: Chest x-ray reveals cardiomegaly with increased pulmonary markings suggesting mild edema. LABORATORY DATA: Pending. IMPRESSION: 1. Noncardiac chest pain. 2. COPD exacerbation with acute bronchospasm. 3. Pleuritic chest pain with concerns over pulmonary emboli. 4. Hypertensive heart disease with controlled blood pressure. 5. Acute on chronic diastolic congestive heart failure. PLAN: 1. Inhaled bronchodilators. 2. Cardiac monitoring. 3. Cautious diuresis. 4. Natriuretic peptide essay assessment. 5. Anti-reflux measures. 6. DVT prophylaxis. 7. Venous duplex scan to assess for possible source of pulmonary emboli with consideration for CT angiogram of the chest to follow. 8. Electrocardiogram will be reviewed once available. Carlos Eduardo Andino M.D. DR: Savannah JOB#: [id number] CC:
[2018-04-28] MEDS ORDERED: Vitamin B12 1000mcg/ml Inj IM SCH (09:00)
== END 2018-04-22 20:40 | DRG 190 ==
LOC: 4E 04-19 05:08
DX: J44.1 Chronic obstructive pulmonary disease with (acute) exacerbation (principal); I50.33 Acute on chronic diastolic (congestive) heart failure; J18.9 Pneumonia, unspecified organism; R53.2 Functional quadriplegia; N39.0 Urinary tract infection, site not specified; I11.0 Hypertensive heart disease with heart failure; M25.531 Pain in right wrist; M79.604 Pain in right leg; Z86.73 Personal history of transient ischemic attack (TIA), and cerebral infarction without residual deficits; Z85.3 Personal history of malignant neoplasm of breast; K21.9 Gastro-esophageal reflux disease without esophagitis; Z90.11 Acquired absence of right breast and nipple; Z88.1 Allergy status to other antibiotic agents; Z88.0 Allergy status to penicillin; Z88.8 Allergy status to other drugs, medicaments and biological substances; Z87.891 Personal history of nicotine dependence; Z86.718 Personal history of other venous thrombosis and embolism; B02.9 Zoster without complications; B96.89 Other specified bacterial agents as the cause of diseases classified elsewhere; R56.9 Unspecified convulsions; Z92.3 Personal history of irradiation; B96.20 Unspecified Escherichia coli [E. coli] as the cause of diseases classified elsewhere
CPT/HCPCS: 36415; 71045; 80053; 80170; 81001; 83880; 85025; 87081; 87086; 87181; 93970; 94640; 94664; 94760; J7620

== ENCOUNTER 2018-09-14 14:02 | Inpatient (IN) | payer MEDICARE, MEDICAID ==
[~2018-09-14] VITALS: Ht 165.1 cm; Wt 125.6 kg
[~2018-09-14 14:02] MED LIST changes: +ACETAMINOP160 MG/54 ORAL; +ARTIFICIAL TEAR15 ML BOTH EYES; +ASCORBIC ACID250 M1 ORAL; +DUONEB 0.5-3(2.53 ML HHN; +FERROUSUL325 M1 PO; +FUROSEMIDE20 M1 ORAL; +GABAPENTIN300 MG ORAL; +GENTAMICIN60 MG/6 ML IV; +LYRICA75 M1 ORAL; +MULTIVITAMINS1 EAC8 ORAL; +PERCOCET 10-321 EAC1 PO; +POTASSIUM CHLO20 ME3 PO; +VITAMIN B-1000 MCG/1 IM; +ZOFRAN4 M3 ORAL
--- NOTE | 2018-09-14 18:36 | NUR ---
[facility] dx r/o right hip fracture, oriented to the unit, v/s taken will endorse to NOC shift RN accordingly andrade matos
[2018-09-14 18:40] VITALS: BP 108/48
[2018-09-14] MEDS ORDERED: Albuterol/Ipratropium 3ml neb HHN PRN (19:00)
[2018-09-14] MEDS ORDERED: Acetaminophen 650mg/20.3ml ORAL PRN (19:00)
[2018-09-14] MEDS ORDERED: HYDROmorphone 1mg/ml Carpuject IVP PRN (19:00)
[2018-09-14] MEDS ORDERED: Milk of Magnesia 30ml Ud ORAL PRN (19:00)
--- NOTE | 2018-09-14 19:23 | NUR ---
HAND-OFF: Report given to MARKUS Turner.
[2018-09-14 20:00] VITALS: BP 128/72
--- NOTE | 2018-09-14 20:00 | NUR ---
NURSE NOTES: Received direct admitted pt from [facility], under Dr Mcgrath, d/t rule out hip fx. Pt is A/O x 4, c/o L knee pain at 9/10 radiating to L hip. On 4L O2 via N/C. No SOB. Skin is intact. Oriented or to surroundings. Bed in lowest position, locked, alarms on. Call light in reach. Will perform swabs and IV insertion.
[2018-09-14] MEDS: Carvedilol 6.25mg Tab ORAL SCH (21:03)
[2018-09-14] MEDS: Heparin 5000 units/ml inj SUBQ SCH (21:09)
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
[2018-09-15] VITALS: BP 122/73
[2018-09-15 04:00] VITALS: BP 135/74
--- NOTE | 2018-09-15 07:39 | NUR ---
HAND-OFF: Report given to Cralos Eduardo APARICIO.
--- NOTE | 2018-09-15 07:50 | NUR ---
NURSE NOTES: Received patient on bed, awake. IV site intact and patent. Bedf in low and locked position, call light in reach. No signs of respiratory distress or pain. Room board updated, will continue to monitor.
[2018-09-15 08:00] VITALS: BP 125/67
--- NOTE | 2018-09-15 08:15 | General Progress Note ---
Assessment/Plan Problem List: (1) DVT (deep vein thrombosis) in ICD Codes: O22.30 - Deep phlebothrombosis in , unspecified trimester; I82.409 - Acute embolism and thrombosis of unspecified deep veins of unspecified lower extremity SNOMED: 48839468, 261001182 (2) Seizure ICD Codes: R56.9 - Unspecified convulsions SNOMED: 95946999 (3) CVA (cerebral vascular accident) ICD Codes: I63.9 - Cerebral infarction, unspecified SNOMED: 840375701 (4) Functional quadriplegia ICD Codes: R53.2 - Functional quadriplegia SNOMED: 843051343334023 (5) Diastolic CHF, acute on chronic ICD Codes: I50.33 - Acute on chronic diastolic (congestive) heart failure SNOMED: 25230048, 206154325 Status: stable Assessment/Plan ct leg check cxr check labs check urine studies pain rx Subjective ROS Limited/Unobtainable: No Constitutional: Reports: malaise, weakness HEENT: Reports: no symptoms Cardiovascular: Reports: chest pain Respiratory: Reports: cough Gastrointestinal/Abdominal: Reports: no symptoms Genitourinary: Reports: no symptoms Neurologic/Psychiatric: Reports: pre-existing deficit, seizure Endocrine: Reports: no symptoms Hematologic/Lymphatic: Reports: no symptoms Allergies: Coded Allergies: CEFEPIME (Unverified Allergy, Unknown, 11/03/17) LEVOFLOXACIN (Unverified Allergy, Unknown, 11/03/17) PENICILLINS (Unverified Allergy, Unknown, 11/03/17) All Systems: reviewed and negative except above Subjective severe left leg pain- mostly knee. c/o mild sob. mild cp(diffuse). ct of the leg not done yet. ?low grade temp Objective Last 24 Hour Vital Signs Date Time Temp Pulse Resp B/P (MAP) Pulse Ox O2 Delivery O2 Flow Rate FiO2 09/15/18 04:00 99.7 89 18 135/74 (94) 100 09/15/18 00:00 99.5 96 20 122/73 (89) 98 09/14/18 21:03 98 128/72 09/14/18 21:00 Nasal Cannula 4.0 09/14/18 20:00 Nasal Cannula 4.0 09/14/18 20:00 99.0 98 20 128/72 (90) 98 09/14/18 18:40 97.7 96 18 108/48 (68) 99 Intake and Output 09/14/18 09/15/18 18:59 06:59 Intake Total 400 ml Balance 400 ml Intake Oral 400 ml # Voids 2 Height (Feet): 5 Height (Inches): 5.00 Weight (Pounds): 277 General Appearance: WD/WN, alert Neck: supple Cardiovascular: regular rhythm Respiratory/Chest: chest wall non-tender, lungs clear, normal breath sounds Abdomen: normal bowel sounds, non tender, soft Edema: no edema noted Arm (L), no edema noted Arm (R), no edema noted Leg (L), no edema noted Leg (R), no edema noted Pedal (L), no edema noted Pedal (R), no edema noted Generalized Kenroy Mcgrath MD Sep 15, 2018 08:15
[2018-09-15] MEDS: Aspirin Baby 81mg ORAL SCH (08:53)
[2018-09-15] MEDS: Lacosamide 50mg tablet ORAL SCH ×2 (08:53→17:37)
[2018-09-15] MEDS: Multivitamin w/Minerals tab ORAL SCH (08:54)
[2018-09-15] MEDS: DULoxetine 30mg cap ORAL SCH (08:54)
[2018-09-15] MEDS: Amantadine 100mg cap ORAL SCH (08:55)
[2018-09-15] MEDS: Heparin 5000 units/ml inj SUBQ SCH ×2 (08:56→21:15)
[2018-09-15] MEDS: Sensipar 30mg Tab ORAL SCH (08:56)
[2018-09-15] MEDS: Carvedilol 6.25mg Tab ORAL SCH ×2 (08:56→21:15)
[2018-09-15] MEDS: Artificial Tears 1.4% Op Soln BOTH EYES SCH ×2 (08:59→17:45)
--- NOTE | 2018-09-15 10:36 | NUR ---
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 99.5, Resp. 20, SpO2 97 IS:4.0 L O2 N.C. Percocet PO Heparin Carvedilol Lipitor Amantadine HCI Aspirin Furosemide Gabapentin Lacosamide MED/SURG STATUS DC [facility]
--- NOTE | 2018-09-15 10:47 | Diagnostic Imaging Report ---
Indication: Shortness of breath Technique: One view of the chest Comparison: 04/19/2018 Findings: Body habitus somewhat limits evaluation. The heart is borderline enlarged. No definite infiltrates, effusions. There is equivocal minimal interstitial congestion, if real appearing similar to the prior study.. Impression: Borderline cardiomegaly Equivocal minimal interstitial congestion correlate with clinical findings
[2018-09-15 12:00] VITALS: BP 116/73
--- NOTE | 2018-09-15 12:55 | Diagnostic Imaging Report ---
Indication: Reason For Exam: TRAUMA Technique: Noncontrast spiral acquisitions obtained through the pelvis and left hip, per trauma protocol. Multiplanar reconstructions were generated. Total dose length product 1988.8 mGycm. CTDIvol(s) 47.94 mGy. Radiation dose was minimized using automated exposure control Comparison: none Findings: Bones are osteoporotic. There are extensive degenerative changes of the left hip joint, with extensive subchondral sclerosis, subchondral cysts, and heart degenerative remodeling of the femoral head and acetabulum. No acute fracture demonstrated. No dislocations. Increased attenuation of the fat of the right lateral buttock and proximal thigh region could indicate contusion. There is a right hip prosthesis. This throws off streak artifact which could obscure pathology in the right hemipelvis. The prosthesis appears to be intact. The included pelvic viscera demonstrate a small paraumbilical hernia which contains only fat. There is colonic diverticulosis. There is a densely calcified old uterine fibroid noted. The pelvic musculature is diffusely atrophic. Impression: No definite acute bony trauma Extensive degenerative changes of the left hip Right hip prosthesis, appears intact Generalized muscular atrophy Incidental findings as noted, including colonic diverticulosis, densely calcified old uterine fibroid The CT scanner at [facility] is accredited by the [employer] and the scans are performed using protocols designed to limit radiation exposure to as low as reasonably achievable to attain images of sufficient resolution adequate for diagnostic evaluation.
--- NOTE | 2018-09-15 13:06 | Diagnostic Imaging Report ---
Indication: Reason For Exam: TRAUMA Technique: No IV contrast, per trauma protocol. Spiral acquisitions obtained through the left knee Multiplanar reconstructions were generated. Total dose length product 408.11 mGycm. CTDIvol(s) 15.26 mGy. Radiation dose was minimized using automated exposure control Comparison: none Findings: Images through the distal femur and the knee joint are completely obliterated by streak artifact from a knee prosthesis. The prosthesis is grossly intact and there is no definite periprosthetic lucency. The included bones appear to be intact, without evidence of fracture or dislocation. There is minimal edema of the subcutaneous fat laterally. Impression: Very limited, essentially nondiagnostic, exam due to streak artifact from a knee prosthesis. Recommend plain radiographs to better evaluate integrity of the hardware in the adjacent bones No definite fractures or significant hardware abnormality Slight focal infiltration of the fat of the distal lateral 5, nonspecific but could indicate contusion given history of trauma The CT scanner at [facility] is accredited by the [employer] and the scans are performed using protocols designed to limit radiation exposure to as low as reasonably achievable to attain images of sufficient resolution adequate for diagnostic evaluation.
[2018-09-15 18:20] LABS: APPEARANCE,URINE SLIGHTLY CLOUDY; BILIRUBIN, URINE NEGATIVE (NEGATIVE); GLUCOSE, URINE (UA) NEGATIVE (NEGATIVE); KETONES,URINE NEGATIVE (NEGATIVE); LEUKOCYTE ESTERASE ,URINE 2+ (NEGATIVE); NITRITE,URINE POSITIVE (NEGATIVE); PH,URINE 6 (4.5-8.0); PROTEIN,URINE 2+ (NEGATIVE); UROBILINOGEN,URINE NORMAL MG/DL (0.0-1.0)
[2018-09-15 18:24] LABS: COLOR,URINE PALE YELLOW
--- NOTE | 2018-09-15 19:30 | NUR ---
NURSE NOTES: Pt received awake, alert and oriented. She is complaining of pain at this time 01/21. I educated her that her pain medication is not due for 3 hours. Pt verbalized understanding. Will contact Dr Mcgrath for orders to relieve her chronic pain which she said is not being controlled with medications ordered. Pt is sitting upright in bed and bed is locked in lowest position Seizure precautions in place, padded side rails. Will continueto monitor pt.
--- NOTE | 2018-09-15 19:38 | NUR ---
HAND-OFF: Report given to MARKUS Swanson.
[2018-09-15 20:00] VITALS: BP 133/71
--- NOTE | 2018-09-15 20:33 | NUR ---
NURSE NOTES: Contacted Dr Mcgrath for orders for intractible pain per patient. Medication dilaudid changed from 1 mg to 3 mg q4 severe pain, percocet for pain 4-6. Patient educated on pain m anagement and the necessity of trying other modalities. Pt is using breathing at this time until another medication is due.
[2018-09-16] VITALS: BP 128/73
[2018-09-16 04:00] VITALS: BP 129/81
--- NOTE | 2018-09-16 07:37 | NUR ---
HAND-OFF: Report given to Dasha APARICIO.
--- NOTE | 2018-09-16 07:47 | NUR ---
NURSE NOTES: pt in bed with no sob nor in any form of distress noted. Breathing regular and unlabored. denies any pain at this time. Bed in lowest position. call light within reach at all time.
[2018-09-16 08:00] VITALS: BP 125/70
--- NOTE | 2018-09-16 08:30 | NUR ---
NURSE NOTES: Dr. guevara notified of no current CBC lab for Heparin. Heparin was held due to no platelet result.
[2018-09-16] MEDS: Artificial Tears 1.4% Op Soln BOTH EYES SCH ×2 (08:50→17:27)
[2018-09-16] MEDS: Amantadine 100mg cap ORAL SCH (08:50)
[2018-09-16] MEDS: Lacosamide 50mg tablet ORAL SCH ×2 (08:52→17:27)
[2018-09-16] MEDS: Aspirin Baby 81mg ORAL SCH (08:52)
[2018-09-16] MEDS: Carvedilol 6.25mg Tab ORAL SCH ×2 (08:52→20:30)
[2018-09-16] MEDS: DULoxetine 30mg cap ORAL SCH (08:52)
[2018-09-16] MEDS: Sensipar 30mg Tab ORAL SCH (08:52)
[2018-09-16] MEDS: Multivitamin w/Minerals tab ORAL SCH (08:52)
[2018-09-16] MEDS: Heparin 5000 units/ml inj SUBQ SCH ×2 (08:55→20:49)
--- NOTE | 2018-09-16 09:07 | General Progress Note ---
Assessment/Plan Problem List: (1) DVT (deep vein thrombosis) in ICD Codes: O22.30 - Deep phlebothrombosis in , unspecified trimester; I82.409 - Acute embolism and thrombosis of unspecified deep veins of unspecified lower extremity SNOMED: 45842748, 942302955 (2) Seizure ICD Codes: R56.9 - Unspecified convulsions SNOMED: 58990125 (3) CVA (cerebral vascular accident) ICD Codes: I63.9 - Cerebral infarction, unspecified SNOMED: 415510604 (4) Functional quadriplegia ICD Codes: R53.2 - Functional quadriplegia SNOMED: 372431637265824 (5) Diastolic CHF, acute on chronic ICD Codes: I50.33 - Acute on chronic diastolic (congestive) heart failure SNOMED: 23506014, 458778878 Status: stable, progressing Assessment/Plan ct leg noted check cxr check labs check urine studies ortho consult iv pain rx Subjective ROS Limited/Unobtainable: No Constitutional: Reports: malaise, weakness HEENT: Reports: no symptoms Cardiovascular: Reports: no symptoms Respiratory: Reports: no symptoms Gastrointestinal/Abdominal: Reports: no symptoms Genitourinary: Reports: no symptoms Neurologic/Psychiatric: Reports: no symptoms Endocrine: Reports: no symptoms Hematologic/Lymphatic: Reports: no symptoms Allergies: Coded Allergies: CEFEPIME (Unverified Allergy, Unknown, 11/03/17) LEVOFLOXACIN (Unverified Allergy, Unknown, 11/03/17) PENICILLINS (Unverified Allergy, Unknown, 11/03/17) All Systems: reviewed and negative except above Subjective severe left leg pain- mostly knee. ct with significant artifact from tka Objective Last 24 Hour Vital Signs Date Time Temp Pulse Resp B/P (MAP) Pulse Ox O2 Delivery O2 Flow Rate FiO2 09/16/18 08:52 97 124/76 09/16/18 08:30 100 2.0 28 09/16/18 08:30 Nasal Cannula 2.0 28 09/16/18 08:30 71 18 Nasal Cannula 2.0 28 09/16/18 04:00 99.0 90 18 129/81 (97) 98 09/16/18 00:00 99.1 99 17 128/73 (91) 97 09/15/18 23:36 Nasal Cannula 4.0 Nasal Cannula 2.0 09/15/18 21:15 94 133/71 09/15/18 21:00 Nasal Cannula 4.0 Nasal Cannula 2.0 09/15/18 20:32 74 18 100 Nasal Cannula 2.0 28 09/15/18 20:31 Nasal Cannula 2.0 28 09/15/18 20:31 100 Nasal Cannula 2.0 28 09/15/18 20:29 74 18 Nasal Cannula 2.0 28 09/15/18 20:20 89 20 97 Nasal Cannula 2.0 28 09/15/18 20:00 99.5 94 19 133/71 (91) 100 09/15/18 12:00 97.6 89 20 116/73 (87) 97 Intake and Output 09/15/18 09/16/18 19:00 07:00 Intake Total 400 ml Output Total 900 ml Balance -500 ml Intake Oral 400 ml Output Urine Total 900 ml # Voids 5 1 Laboratory Tests 09/15/18 17:30: Urine Color Pale yellow, Urine Appearance Slightly cloudy, Urine pH 6, Urine Specific [place] 1.025, Urine Protein 2+H, Urine Glucose (UA) Negative, Urine Ketones Negative, Urine Blood 5+H, Urine Nitrite PositiveH, Urine Bilirubin Negative, Urine Urobilinogen Normal, Urine Leukocyte Esterase 2+H, Urine RBC 10- 15H, Urine WBC 5-10H, Urine Squamous Epithelial Cells ModerateH, Urine Amorphous Sediment ModerateH, Urine Bacteria ModerateH Height (Feet): 5 Height (Inches): 5.00 Weight (Pounds): 277 General Appearance: WD/WN Neck: supple Cardiovascular: regular rhythm Respiratory/Chest: chest wall non-tender, lungs clear, normal breath sounds Edema: no edema noted Arm (L), no edema noted Arm (R), no edema noted Leg (L), no edema noted Leg (R), no edema noted Pedal (L), no edema noted Pedal (R), no edema noted Generalized Neurologic: coil placer II-XII grossly normal, alert Kenroy Mcgrath MD Sep 16, 2018 09:07
[2018-09-16 12:00] VITALS: BP 118/75
[2018-09-16 16:00] VITALS: BP 124/89
--- NOTE | 2018-09-16 19:09 | NUR ---
HAND-OFF: Report given to MARKUS Pacheco.
--- NOTE | 2018-09-16 19:17 | NUR ---
NURSE NOTES: Received patient in bed, awake, alert, oriented, able to make her needs known, no acute distress noted, call light is within reach, bed is in low position, locked and alarm is on. Will continue to monitor for safety and comfort.
[2018-09-16 20:00] VITALS: BP 128/85
[2018-09-16 20:26] LABS: BASOPHILS % (AUTO) 0.7 % (0.0-2.0); EOSINOPHILS % (AUTO) 3.8 % (0.0-3.0); HEMATOCRIT 32.8 % (37.0-47.0); HEMOGLOBIN 10.3 G/DL (12.0-16.0); LYMPHOCYTES % (AUTO) 27.8 % (20.0-45.0); MEAN CORPUSCULAR VOLUME 90 FL (80-99); MONOCYTES % (AUTO) 5.5 % (1.0-10.0); NEUTROPHILS % (AUTO) 62.1 % (45.0-75.0); PLATELET COUNT 228 K/UL (150-450); RED BLOOD COUNT 3.65 M/UL (4.20-5.40); RED CELL DISTRIBUTION WIDTH 14.8 % (11.6-14.8); WHITE BLOOD COUNT 8.3 K/UL (4.8-10.8)
--- NOTE | 2018-09-16 22:45 | Consultation ---
DATE OF CONSULTATION: 09/16/2018 REASON FOR CONSULTATION: Left hip and thigh pain. HISTORY OF PRESENT ILLNESS: The patient is a 68-year-old female who is seen in consultation. She reports she was apparently being wheeled in a wheelchair and the legs became caught underneath the wheelchair, causing a twisting injury. She felt a popping sensation in the thigh regions. She subsequently started to have severe pain, was unable to put any weight and was brought in and was admitted. At the present time, the patient reports pain in the left groin, thigh, and knee region. She did not have this pain prior to this incident. She also reports she felt a popping sensation when her leg got caught. PHYSICAL EXAMINATION: VITAL SIGNS: The patient is morbidly obese. She is afebrile. VITAL SIGNS: Stable. EXTREMITIES: Evaluation of left lower extremity reveals she does not tolerate any range of motion. She does not tolerate any flexion of the knee or any rotation including log roll elicits significant tenderness in the left thigh region. There is no ecchymosis. There is no significant tenderness to palpation in the thigh. There is no swelling. There is an anterior incision in the left knee, which is well healed. There is no erythema or warmth. Her foot is warm and well perfused with intact motor and sensory function of left foot LABORATORY AND DIAGNOSTIC DATA: There are no x-rays of the left hip or the left knee. There is a CT scan of the hip, which shows significant degenerative changes in the left hip joint, no distinct acute fracture seen. There is evidence of a right total hip prosthesis. There is also CT of the left knee. There is significant metal artifact, but I do not see any distinct fracture on the CT scan. IMPRESSION AND PLAN: Left hip and thigh pain. At the present time, I will first order x-rays to better image the area of the left hip and left knee. In addition, I would recommend an MRI to rule out a hip fracture, possibly involving the femoral neck, which does not show up on the CT scan that she could have a nondisplaced fracture, which could be causing this amount of pain. If the studies are negative, it is possible she could have had exacerbation of her very severe osteoarthritis in the left hip and that a possible cortisone injection could be tried provided the studies are negative for an acute fracture. In the meantime, the patient will continue to be nonweightbearing. Discussed my plan with Dr. Mcgrath. Thank you for this consult. Boyd Evangelista M.D. DR: Yas JOB#: [id number] CC:
[2018-09-17 00:52] VITALS: BP 130/55
[2018-09-17 04:00] VITALS: BP 126/73
--- NOTE | 2018-09-17 07:23 | NUR ---
HAND-OFF: Report given to Dena APARICIO.
--- NOTE | 2018-09-17 07:30 | NUR ---
NURSE NOTES: Received pt awake eating breakfast call light is sin reach current plan will be followed
--- NOTE | 2018-09-17 07:51 | NUR ---
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 Santos made aware. Protocol will be followed. Dr Santos also made aware that pt O2 saturation was 90 -91 placed on 2 liter nasal canula hob elevated. No signs of distress
--- NOTE | 2018-09-17 07:55 | NUR ---
error entry incorrect information for 02 saturation wrong pt
[2018-09-17 08:00] VITALS: BP 142/77
[2018-09-17] MEDS: Artificial Tears 1.4% Op Soln BOTH EYES SCH ×2 (08:33→17:21)
[2018-09-17] MEDS: DULoxetine 30mg cap ORAL SCH (08:34)
[2018-09-17] MEDS: Lacosamide 50mg tablet ORAL SCH ×2 (08:35→17:17)
[2018-09-17] MEDS: Amantadine 100mg cap ORAL SCH (08:35)
[2018-09-17] MEDS: Aspirin Baby 81mg ORAL SCH (08:35)
[2018-09-17] MEDS: Sensipar 30mg Tab ORAL SCH (08:36)
[2018-09-17] MEDS: Multivitamin w/Minerals tab ORAL SCH (08:36)
[2018-09-17] MEDS: Carvedilol 6.25mg Tab ORAL SCH ×2 (08:36→21:00)
[2018-09-17] MEDS: Heparin 5000 units/ml inj SUBQ SCH ×2 (08:40→21:00)
--- NOTE | 2018-09-17 08:49 | General Progress Note ---
Assessment/Plan Problem List: (1) DVT (deep vein thrombosis) in ICD Codes: O22.30 - Deep phlebothrombosis in , unspecified trimester; I82.409 - Acute embolism and thrombosis of unspecified deep veins of unspecified lower extremity SNOMED: 58788447, 398038283 (2) Seizure ICD Codes: R56.9 - Unspecified convulsions SNOMED: 76524217 (3) CVA (cerebral vascular accident) ICD Codes: I63.9 - Cerebral infarction, unspecified SNOMED: 271278476 (4) Functional quadriplegia ICD Codes: R53.2 - Functional quadriplegia SNOMED: 916376200399070 (5) Diastolic CHF, acute on chronic ICD Codes: I50.33 - Acute on chronic diastolic (congestive) heart failure SNOMED: 25380535, 888859419 Status: stable Assessment/Plan xray leg and mri ordered per ortho recs check cxr check labs check urine studies ortho consult iv pain rx Subjective ROS Limited/Unobtainable: No Constitutional: Reports: malaise, weakness HEENT: Reports: no symptoms Cardiovascular: Reports: no symptoms Respiratory: Reports: no symptoms Gastrointestinal/Abdominal: Reports: no symptoms Genitourinary: Reports: no symptoms Neurologic/Psychiatric: Reports: no symptoms Endocrine: Reports: no symptoms Hematologic/Lymphatic: Reports: no symptoms Allergies: Coded Allergies: CEFEPIME (Unverified Allergy, Unknown, 11/03/17) LEVOFLOXACIN (Unverified Allergy, Unknown, 11/03/17) PENICILLINS (Unverified Allergy, Unknown, 11/03/17) All Systems: reviewed and negative except above Subjective severe left leg pain- mostly knee. ct with significant artifact from [facility] noted. xrays and mri recommended Objective Last 24 Hour Vital Signs Date Time Temp Pulse Resp B/P (MAP) Pulse Ox O2 Delivery O2 Flow Rate FiO2 09/17/18 08:36 82 141/71 09/17/18 04:00 98.6 89 20 126/73 (90) 09/17/18 00:52 98.6 81 130/55 (80) 09/16/18 21:09 Nasal Cannula 4.0 Nasal Cannula 2.0 09/16/18 20:30 87 121/85 09/16/18 20:27 94 2.0 28 09/16/18 20:27 82 18 Nasal Cannula 2.0 28 09/16/18 20:27 Nasal Cannula 2.0 28 09/16/18 20:00 97.8 87 18 128/85 (99) 09/16/18 18:26 97.7 09/16/18 16:00 97.7 85 20 124/89 (101) 95 09/16/18 12:00 98.9 98 20 118/75 (89) 97 09/16/18 09:00 Nasal Cannula 4.0 Nasal Cannula 2.0 09/16/18 08:52 97 124/76 Intake and Output 09/16/18 09/17/18 19:00 07:00 Intake Total 720 ml Output Total 600 ml 500 ml Balance 120 ml -500 ml Intake Oral 720 ml Output Urine Total 600 ml 500 ml Laboratory Tests 09/16/18 20:00: White Blood Count 8.3, Red Blood Count 3.65L, Hemoglobin 10.3L, Hematocrit 32.8L , Mean Corpuscular Volume 90, Mean Corpuscular Hemoglobin 28.3, Mean Corpuscular Hemoglobin Concent 31.4L, Red Cell Distribution Width 14.8, Platelet Count 228, Mean Platelet Volume 6.3L, Neutrophils (%) (Auto) 62.1, Lymphocytes (%) (Auto) 27.8, Monocytes (%) (Auto) 5.5, Eosinophils (%) (Auto) 3.8H, Basophils (%) (Auto) 0.7 Height (Feet): 5 Height (Inches): 5.00 Weight (Pounds): 277 Objective General Appearance: WD/WN Neck: supple Cardiovascular: regular rhythm Respiratory/Chest: chest wall non-tender, lungs clear, normal breath sounds Edema: no edema noted Arm (L), no edema noted Arm (R), no edema noted Leg (L), no edema noted Leg (R), no edema noted Pedal (L), no edema noted Pedal (R), no edema noted 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
--- NOTE | 2018-09-17 08:52 | NUR ---
NURSE NOTES: Pt complaining pain 9/10 informed of importance of not waiting for pain level to reach 9 on pain scale. Per pt statement states her pain is chronic and does not go under 7 on 7/10 pain scale. . Dilaudid given iv . per pt pain is in her knee. Verbalized concerns " I do not think people believe me" Provided with verbal encouragement pain is subjective.
--- NOTE | 2018-09-17 09:41 | NUR ---
NURSE NOTES: Dr Mcgrath phoned due to pending MRI and verbalizations of claustrophobia . Pt attempted to to be encoraged and procedure explained , became tearful gave okay for Ativan 2mg iv once for procedure.
[2018-09-17] MEDS ORDERED: LORazepam Inj 2mg/ml 1ml IV SCH (09:45)
[2018-09-17 12:00] VITALS: BP 106/54
--- NOTE | 2018-09-17 12:13 | NUR ---
09/17 @ 1200 HRS. UNABLE TO DO EXAM DUE TO pt BODY HABITUS. SCANNER TABLE MOVEMENT LOCKED UP WHEN ATTEMPTING TO BRING pt INTO SCANNER. DID MULTIPLE ATTEMPTS TO ADJUST pt TO NO AVAIL. RN (MALACHI) HAS BEEN INFORMED AND DR. CHANG HAS BEEN SENT A TEXT. -CLARI
--- NOTE | 2018-09-17 12:35 | NUR ---
NURSE NOTES: Dr Mcgrath phoned earlier in shift roughly one hour ago to inform him that pt was not able to fit in MRI. Kajal Rinaldi was not able to render procedure due to pt large size. EXT number left with narrative writer for MD is he had any questions. No further orders given
--- NOTE | 2018-09-17 15:06 | NUR ---
NURSE NOTES: Pt refused hip xray made aware. Deposition Operator went in an spoke to pt she stated she will cooperate with xray
[2018-09-17 16:00] VITALS: BP 123/64
--- NOTE | 2018-09-17 16:31 | NUR ---
NURSE NOTES: Pt lacks short term memory. technical internship is here pt began moaning " I thought I said I would do it tomorrow" Pt informed that the Dr was waiting for the results for xray to rule out fracture. Pt required verbal queing to cooperate " Damn I was sleep; I didn't say I wasn't going to do it not today' Priority explained. Pt went down for xray with technical internship . will update notes when she returns
--- NOTE | 2018-09-17 17:07 | Diagnostic Imaging Report ---
Indication: Pain, trauma Technique: 2 views of the left hip Comparison: Hip CT dated 09/15/2018 Findings: There is marked chronic appearing deformity of the left femoral head. There is severe degenerative joint space narrowing with marked degenerative remodeling of the acetabulum and complete obliteration of the joint space. The bones are osteoporotic. No definite acute fractures. No dislocations. There is a right hip prosthesis in place. Impression: Extensive degenerative change of the left hip joint, as described above and on prior head CT. Deformity of the femoral head, may indicate old avascular necrosis or slipped capital femoral epiphysis, or could be purely on the basis of degenerative remodeling No definite acute bony trauma
--- NOTE | 2018-09-17 17:08 | Diagnostic Imaging Report ---
Indication: Trauma, pain Technique: 3 views of the left knee Comparison: None Findings: There is a left knee arthroplasty prosthesis. Hardware appears intact. No acute fractures. No dislocations. Impression: No acute bony trauma
--- NOTE | 2018-09-17 18:39 | NUR ---
CASE MANAGEMENT: REVIEW SI: DVT IN . FUNCTIONAL QUADRIPLEGIA . CVA . SEIZURE T 99.0 HR 77 RR 20 BP 106/54 SAT 95% ROOM AIR IS: LASIX PO QD LACOSAMIDE PO BID COREG PO QD HEPARIN SQ Q12HR AMANTADINE PO QD MED/SURG STATUS DCP: PATIENT IS FROM HOME
--- NOTE | 2018-09-17 19:25 | NUR ---
NURSE NOTES: Pt received awake, alert and oriented. She is complaining of pain at this time 01/21. I educated her that her pain medication is not due for an additional 3 hours. Pt verbalized understanding. Will contact Dr Mcgrath for orders to relieve her chronic pain which she said is not being controlled with medications ordered. Pt is sitting upright in bed and bed is locked in lowest position Seizure precautions in place, padded side rails. Will continueto monitor pt.
--- NOTE | 2018-09-17 19:55 | NUR ---
HAND-OFF: Report given to Alissa APARICIO.
[2018-09-17 20:00] VITALS: BP 127/79
[2018-09-18] VITALS: BP 126/85
[2018-09-18 03:46] VITALS: BP 120/83
--- NOTE | 2018-09-18 07:11 | NUR ---
HAND-OFF: Report given to MARKUS Fernandes.
--- NOTE | 2018-09-18 07:54 | NUR ---
NURSE NOTES: Pt informed of xray results. No fracture present. Per report of outgoing nurse pt refused to be repositioned . Will continue to encourage repositioning for preventive measures, due to large size pt is plus two assist. " If It is not a fracture then what is it; well they told me at [facility] it wasn't a fracture. Dr Fermin here seen pt . No new orders at this time.
[2018-09-18 08:00] VITALS: BP 118/71
--- NOTE | 2018-09-18 08:29 | General Progress Note ---
Assessment/Plan Problem List: (1) DVT (deep vein thrombosis) in ICD Codes: O22.30 - Deep phlebothrombosis in , unspecified trimester; I82.409 - Acute embolism and thrombosis of unspecified deep veins of unspecified lower extremity SNOMED: 13244876, 398006710 (2) Seizure ICD Codes: R56.9 - Unspecified convulsions SNOMED: 83854570 (3) CVA (cerebral vascular accident) ICD Codes: I63.9 - Cerebral infarction, unspecified SNOMED: 518530797 (4) Functional quadriplegia ICD Codes: R53.2 - Functional quadriplegia SNOMED: 569297058932967 (5) Diastolic CHF, acute on chronic ICD Codes: I50.33 - Acute on chronic diastolic (congestive) heart failure SNOMED: 34579069, 882431260 Assessment/Plan xray leg and mri ordered per ortho recs check cxr check labs check urine studies ortho consult iv pain rx Subjective ROS Limited/Unobtainable: No Constitutional: Reports: malaise, weakness HEENT: Reports: no symptoms Cardiovascular: Reports: no symptoms Respiratory: Reports: no symptoms Gastrointestinal/Abdominal: Reports: no symptoms Genitourinary: Reports: no symptoms Neurologic/Psychiatric: Reports: no symptoms Endocrine: Reports: no symptoms Hematologic/Lymphatic: Reports: no symptoms Allergies: Coded Allergies: CEFEPIME (Unverified Allergy, Unknown, 11/03/17) LEVOFLOXACIN (Unverified Allergy, Unknown, 11/03/17) PENICILLINS (Unverified Allergy, Unknown, 11/03/17) All Systems: reviewed and negative except above Subjective severe left leg pain- mostly knee. unable to fit into mri plain xrays reviewed pt still requiring iv pain meds for pain control Objective Last 24 Hour Vital Signs Date Time Temp Pulse Resp B/P (MAP) Pulse Ox O2 Delivery O2 Flow Rate FiO2 09/18/18 03:46 99.1 89 20 120/83 (95) 99 09/18/18 00:00 97.7 90 20 126/85 (99) 94 09/17/18 21:00 Nasal Cannula 2.0 09/17/18 21:00 91 127/79 09/17/18 20:00 99.0 91 20 127/79 (95) 98 09/17/18 16:00 99.0 77 20 123/64 (83) 99 09/17/18 12:00 96.8 84 16 106/54 (71) 95 09/17/18 09:00 Room Air Room Air 09/17/18 08:36 82 141/71 Intake and Output 09/17/18 09/18/18 19:00 07:00 Intake Total 120 ml Balance 120 ml Intake Oral 120 ml # Voids 4 2 Height (Feet): 5 Height (Inches): 5.00 Weight (Pounds): 277 Objective General Appearance: WD/WN Neck: supple Cardiovascular: regular rhythm Respiratory/Chest: chest wall non-tender, lungs clear, normal breath sounds Edema: no edema noted Arm (L), no edema noted Arm (R), no edema noted Leg (L), no edema noted Leg (R), no edema noted Pedal (L), no edema noted Pedal (R), no edema noted 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
[2018-09-18] MEDS: Artificial Tears 1.4% Op Soln BOTH EYES SCH ×2 (08:42→17:45)
[2018-09-18] MEDS: Aspirin Baby 81mg ORAL SCH (08:43)
[2018-09-18] MEDS: DULoxetine 30mg cap ORAL SCH (08:43)
[2018-09-18] MEDS: Carvedilol 6.25mg Tab ORAL SCH ×2 (08:43→20:29)
[2018-09-18] MEDS: Lacosamide 50mg tablet ORAL SCH ×2 (08:43→17:45)
[2018-09-18] MEDS: Amantadine 100mg cap ORAL SCH (08:43)
[2018-09-18] MEDS: Sensipar 30mg Tab ORAL SCH (08:43)
[2018-09-18] MEDS: Heparin 5000 units/ml inj SUBQ SCH ×2 (08:46→20:32)
[2018-09-18] MEDS: Multivitamin w/Minerals tab ORAL SCH (09:00)
[2018-09-18 12:00] VITALS: BP 115/61
--- NOTE | 2018-09-18 13:58 | NUR ---
RD ASSESSMENT & RECOMMENDATIONS SEE CARE ACTIVITY FOR COMPLETE ASSESSMENT DAILY ESTIMATED NEEDS: Needs based on Obesity, cardiac/ 74kg abw 20-23 kcals/kg 6975-6006 total kcals 1-1.5 g protein/kg 74-126 g total protein 20-25 mL/kg 2724-7248 total fluid mLs NUTRITION DIAGNOSIS: * Morbid obesity R/T lifestyle factors, w/ quadriplegia, excessive energy intake as evidenced by BMI>40 per guidelines. CURRENT DIET:CARDIAC PO DIET RECOMMENDATIONS: Cardiac/ texture as tolerated ADDITIONAL RECOMMENDATIONS: * Txr pt to bed w/ bedscale, obtain calibrated bedscale wt * DIRECTOR FIELD SERVICES eval if appropriate- h/o CVA, DIRECTOR FIELD SERVICES recommended VSS in October adm * Monitor lytes closely w/ lasix, replete as needed * Check BMP - not done since adm. .
[2018-09-18 16:00] VITALS: BP 117/63
--- NOTE | 2018-09-18 19:15 | NUR ---
pt does not have a pressure ulcer error in entry
--- NOTE | 2018-09-18 19:48 | NUR ---
NURSE NOTES: Received patient in bed, awake, alert, no acute distress noted, VSS, afebrile, call light is within reach, bed is in low position, locked and alarm is on, will continue to monitor for safety and comfort.
--- NOTE | 2018-09-18 19:59 | NUR ---
NURSE NOTES: Pt repositioned through out shift. Received pain medication of Dilaudid x 3 . Requires emotional support 2 to anxiety , concerns with plan of care. Call light is in reach.
[2018-09-18 20:00] VITALS: BP 124/70
--- NOTE | 2018-09-18 20:02 | NUR ---
HAND-OFF: Report given to Tara APARICIO.
[2018-09-19] VITALS: BP 117/67
[2018-09-19 04:00] VITALS: BP 125/71
--- NOTE | 2018-09-19 06:45 | NUR ---
HAND-OFF: Report given to Pat APARICIO.
--- NOTE | 2018-09-19 06:55 | NUR ---
NURSE NOTES: Received report from MARKUS Pacheco. Pt in bed, complaining of pain, discussed pain medication schedule, will give when due. Bed in lowest position call light within reach.
[2018-09-19 08:00] VITALS: BP 130/73
[2018-09-19] MEDS: Aspirin Baby 81mg ORAL SCH (09:28)
[2018-09-19] MEDS: Amantadine 100mg cap ORAL SCH (09:29)
[2018-09-19] MEDS: Multivitamin w/Minerals tab ORAL SCH (09:29)
[2018-09-19] MEDS: Lacosamide 50mg tablet ORAL SCH ×2 (09:29→17:33)
[2018-09-19] MEDS: Carvedilol 6.25mg Tab ORAL SCH ×2 (09:29→21:16)
[2018-09-19] MEDS: Sensipar 30mg Tab ORAL SCH (09:29)
[2018-09-19] MEDS: DULoxetine 30mg cap ORAL SCH (09:29)
[2018-09-19] MEDS: Heparin 5000 units/ml inj SUBQ SCH ×2 (09:31→21:17)
[2018-09-19] MEDS: Artificial Tears 1.4% Op Soln BOTH EYES SCH ×2 (09:32→17:36)
--- NOTE | 2018-09-19 09:45 | NUR ---
NURSE NOTES: report given by Pat. Received patient in bed, awake, alert, no acute distress noted, VSS, afebrile, call light is within reach, bed is in low position, locked and alarm is on, will continue to monitor.
--- NOTE | 2018-09-19 11:08 | General Progress Note ---
Assessment/Plan Problem List: (1) DVT (deep vein thrombosis) in ICD Codes: O22.30 - Deep phlebothrombosis in , unspecified trimester; I82.409 - Acute embolism and thrombosis of unspecified deep veins of unspecified lower extremity SNOMED: 16403831, 496397513 (2) Seizure ICD Codes: R56.9 - Unspecified convulsions SNOMED: 78627847 (3) CVA (cerebral vascular accident) ICD Codes: I63.9 - Cerebral infarction, unspecified SNOMED: 014123149 (4) Functional quadriplegia ICD Codes: R53.2 - Functional quadriplegia SNOMED: 644140776238970 (5) Diastolic CHF, acute on chronic ICD Codes: I50.33 - Acute on chronic diastolic (congestive) heart failure SNOMED: 61550375, 572346916 Status: stable, progressing Assessment/Plan iv pain meds check vascular studies ortho follow up Subjective ROS Limited/Unobtainable: No Constitutional: Reports: malaise, weakness HEENT: Reports: no symptoms Cardiovascular: Reports: no symptoms Respiratory: Reports: no symptoms Gastrointestinal/Abdominal: Reports: no symptoms Genitourinary: Reports: no symptoms Neurologic/Psychiatric: Reports: no symptoms Endocrine: Reports: no symptoms Hematologic/Lymphatic: Reports: no symptoms Allergies: Coded Allergies: CEFEPIME (Unverified Allergy, Unknown, 11/03/17) LEVOFLOXACIN (Unverified Allergy, Unknown, 11/03/17) PENICILLINS (Unverified Allergy, Unknown, 11/03/17) All Systems: reviewed and negative except above Subjective severe left leg pain- mostly knee. unable to fit into mri plain xrays reviewed pt still requiring iv pain meds for pain control Objective Last 24 Hour Vital Signs Date Time Temp Pulse Resp B/P (MAP) Pulse Ox O2 Delivery O2 Flow Rate FiO2 09/19/18 09:29 93 130/73 09/19/18 08:00 99.6 93 18 130/73 (92) 99 09/19/18 07:11 74 18 Nasal Cannula 2.0 28 09/19/18 07:11 97 Nasal Cannula 2.0 28 09/19/18 07:11 Nasal Cannula 2.0 28 09/19/18 04:00 98.0 81 20 125/71 (89) 09/19/18 00:00 98.2 85 18 117/67 (84) 09/18/18 21:58 Nasal Cannula 2.0 09/18/18 21:15 72 18 Nasal Cannula 2.0 28 09/18/18 21:15 Nasal Cannula 2.0 28 09/18/18 21:15 98 Nasal Cannula 2.0 28 09/18/18 20:29 73 127/77 09/18/18 20:00 99.1 90 18 124/70 (88) 09/18/18 16:00 97.3 81 16 117/63 (81) 09/18/18 12:00 97.3 84 18 115/61 (79) 99 Intake and Output 09/18/18 09/19/18 19:00 07:00 Intake Total 240 ml 250 ml Balance 240 ml 250 ml Intake Oral 240 ml Other 250 ml # Voids 2 2 # Bowel Movements 1 Height (Feet): 5 Height (Inches): 5.00 Weight (Pounds): 277 Objective General Appearance: WD/WN Neck: supple Cardiovascular: regular rhythm Respiratory/Chest: chest wall non-tender, lungs clear, normal breath sounds Edema: no edema noted Arm (L), no edema noted Arm (R), no edema noted Leg (L), no edema noted Leg (R), no edema noted Pedal (L), no edema noted Pedal (R), no edema noted 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
[2018-09-19 12:09] VITALS: BP 106/61
[2018-09-19 16:00] VITALS: BP 112/62
--- NOTE | 2018-09-19 16:10 | NUR ---
NURSE NOTES: relayed to Dr. Mcgrath venous duplex result. No new order obtained.
--- NOTE | 2018-09-19 16:21 | NUR ---
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 FUNCTIONAL QUADRIPLEGIA . CVA . SEIZURE VS: BP 130/73, P 93, T 99.6, RR 18, SpO2 99 O2 on 2.0 NC IS:Hydromorphone IVP Amantadine Aspirin Cinacalcet Cymbalta Pepcid Lasix Gabapentin Lacosamide Coreg Heparin SUBQ Magnesium Hydroxide MED/SURG STATUS
--- NOTE | 2018-09-19 18:54 | Orthopedic Progress Note ---
Orthopedic - Progress Note Subjective Additional Comments Continued tenderness left hip, thigh and knee. Patient is unable to isolate her pain. Objective Last 24 Hour Vital Signs Date Time Temp Pulse Resp B/P (MAP) Pulse Ox O2 Delivery O2 Flow Rate FiO2 09/19/18 16:00 99.3 81 20 112/62 (79) 98 09/19/18 14:32 98.9 09/19/18 12:09 98.9 82 18 106/61 (76) 99 09/19/18 09:29 93 130/73 09/19/18 08:00 99.6 93 18 130/73 (92) 99 09/19/18 07:11 74 18 Nasal Cannula 2.0 28 09/19/18 07:11 97 Nasal Cannula 2.0 28 09/19/18 07:11 Nasal Cannula 2.0 28 09/19/18 04:00 98.0 81 20 125/71 (89) 09/19/18 00:00 98.2 85 18 117/67 (84) 09/18/18 21:58 Nasal Cannula 2.0 09/18/18 21:15 72 18 Nasal Cannula 2.0 28 09/18/18 21:15 Nasal Cannula 2.0 28 09/18/18 21:15 98 Nasal Cannula 2.0 28 09/18/18 20:29 73 127/77 09/18/18 20:00 99.1 90 18 124/70 (88) Intake and Output 09/18/18 09/19/18 19:00 07:00 Intake Total 240 ml 250 ml Balance 240 ml 250 ml Intake Oral 240 ml Other 250 ml # Voids 2 2 # Bowel Movements 1 Left LE Significant tenderness with any attempted range of motion of left leg. Unable to tolerated any ROM of left hip or knee. distinct tenderness medial aspect of knee. Additional Comments Xrays Left Knee ?non displaced fracture of medial femoral epicondylar region. Sliver of fragment visualized. It is difficult to see this on CT scan due to metal scatter. Left Hip Severe degenerative end stage arthritis Plan Additional Comments Patient has severe OA left Hip. No other fracture seen on hip xray in the region. Recommend cortisone inj under ultrasound/fluoroscopic guidance. In regards to left knee, I do think she may have a small non displaced fracture. Recommend knee immobilizer and non weight bearing for 4-[address] Mcgrath. Boyd Evangelista MD Sep 19, 2018 18:54
--- NOTE | 2018-09-19 19:21 | NUR ---
HAND-OFF: Report given to Berta.
[2018-09-19 20:00] VITALS: BP 122/67
[2018-09-20] VITALS: BP 118/68
[2018-09-20 04:00] VITALS: BP 126/73
--- NOTE | 2018-09-20 06:27 | NUR ---
Nurse's Notes: Pain managed well with ordered medications; no other complaints received; in no apparent distress at this time.
[2018-09-20 08:00] VITALS: BP 120/61
[2018-09-20] MEDS: Aspirin Baby 81mg ORAL SCH (08:33)
[2018-09-20] MEDS: Artificial Tears 1.4% Op Soln BOTH EYES SCH ×2 (08:33→17:47)
[2018-09-20] MEDS: Sensipar 30mg Tab ORAL SCH (08:33)
[2018-09-20] MEDS: DULoxetine 30mg cap ORAL SCH (08:33)
[2018-09-20] MEDS: Carvedilol 6.25mg Tab ORAL SCH ×2 (08:33→21:21)
[2018-09-20] MEDS: Lacosamide 50mg tablet ORAL SCH ×2 (08:33→17:47)
[2018-09-20] MEDS: Amantadine 100mg cap ORAL SCH (08:34)
[2018-09-20] MEDS: Multivitamin w/Minerals tab ORAL SCH (08:34)
[2018-09-20] MEDS: Heparin 5000 units/ml inj SUBQ SCH ×2 (08:36→21:23)
--- NOTE | 2018-09-20 11:15 | General Progress Note ---
Assessment/Plan Problem List: (1) DVT (deep vein thrombosis) in ICD Codes: O22.30 - Deep phlebothrombosis in , unspecified trimester; I82.409 - Acute embolism and thrombosis of unspecified deep veins of unspecified lower extremity SNOMED: 08517536, 454798832 (2) Seizure ICD Codes: R56.9 - Unspecified convulsions SNOMED: 71101900 (3) CVA (cerebral vascular accident) ICD Codes: I63.9 - Cerebral infarction, unspecified SNOMED: 889435325 (4) Functional quadriplegia ICD Codes: R53.2 - Functional quadriplegia SNOMED: 122829080657463 (5) Diastolic CHF, acute on chronic ICD Codes: I50.33 - Acute on chronic diastolic (congestive) heart failure SNOMED: 41944939, 411221215 Assessment/Plan iv pain meds brace left knee ortho follow up pt declined steroid hip injection dc planning once brace arrives Subjective ROS Limited/Unobtainable: No Constitutional: Reports: weakness HEENT: Reports: no symptoms Cardiovascular: Reports: no symptoms Respiratory: Reports: no symptoms Gastrointestinal/Abdominal: Reports: no symptoms Genitourinary: Reports: no symptoms Neurologic/Psychiatric: Reports: pre-existing deficit Endocrine: Reports: no symptoms Hematologic/Lymphatic: Reports: no symptoms Allergies: Coded Allergies: CEFEPIME (Unverified Allergy, Unknown, 11/03/17) LEVOFLOXACIN (Unverified Allergy, Unknown, 11/03/17) PENICILLINS (Unverified Allergy, Unknown, 11/03/17) All Systems: reviewed and negative except above Subjective severe left leg pain- mostly knee. unable to fit into mri plain xrays reviewed pt still requiring iv pain meds for pain control d/w ortho- concern about nondisplaced fracture left knee. steroids injection left hip also recommended Objective Last 24 Hour Vital Signs Date Time Temp Pulse Resp B/P (MAP) Pulse Ox O2 Delivery O2 Flow Rate FiO2 09/20/18 09:51 Nasal Cannula 2.0 09/20/18 08:33 74 120/61 09/20/18 08:00 98.1 74 18 120/61 (80) 98 09/20/18 07:02 98.0 09/20/18 04:00 98.0 90 20 126/73 (90) 98 09/20/18 00:00 98.4 83 22 118/68 (85) 94 09/19/18 23:56 Nasal Cannula 2.0 28 09/19/18 23:56 92 Nasal Cannula 2.0 28 09/19/18 23:56 85 20 Nasal Cannula 2.0 28 09/19/18 21:16 92 122/67 09/19/18 21:00 Nasal Cannula 2.0 09/19/18 20:00 98.6 92 20 122/67 (85) 99 09/19/18 16:00 99.3 81 20 112/62 (79) 98 09/19/18 12:09 98.9 82 18 106/61 (76) 99 Intake and Output 09/19/18 09/20/18 19:00 07:00 Intake Total 480 ml 200 ml Output Total 800 ml 400 ml Balance -320 ml -200 ml Intake Oral 480 ml 200 ml Output Urine Total 800 ml 400 ml # Voids 2 Height (Feet): 5 Height (Inches): 5.00 Weight (Pounds): 277 Objective General Appearance: WD/WN Neck: supple Cardiovascular: regular rhythm Respiratory/Chest: chest wall non-tender, lungs clear, normal breath sounds Edema: no edema noted Arm (L), no edema noted Arm (R), no edema noted Leg (L), no edema noted Leg (R), no edema noted Pedal (L), no edema noted Pedal (R), no edema noted Generalized Neurologic: block setter gypsum II-XII grossly normal, alert Kenroy Mcgrath MD Sep 20, 2018 11:15
[2018-09-20 12:00] VITALS: BP 123/51
--- NOTE | 2018-09-20 15:58 | NUR ---
CASE MANAGEMENT:DCPNOTE UPON DISCHARGE PATIENT WILL TRANSFER BACK TO [facility] [phone] [facility] [phone] IN AGREEMENT WITH PATIENT TRANSFERRING BACK TO THIS FACILITY TRANSPORTATION VIA [facility] [id number] ETA 18:00 Addendum: 09/20/18 at 1606 by ERIKA PERALTA CM ISAIAH IBANEZ
[2018-09-20 16:00] VITALS: BP 116/67
--- NOTE | 2018-09-20 16:23 | NUR ---
CHARGE NURSE NOTES: PATIENT MADE AWARE OF DC ORDER. ROAD PATCHER ERIKA AND PRIMARY RN DISCUSSED PLAN WITH PATIENT. PATIENT NOW STATING SHE WANTS STEROID HIP INJECTION. (PREVIOUSLY PATIENT DECLINED IT). NOTIFIED DR. CHANG WHO STATED TO HOLD DISCHARGE. WILL CONTINUE TO MONITOR. Addendum: 09/20/18 at 1624 by BRANDEE JASSO RN RN [facility] WILL CALL.
--- NOTE | 2018-09-20 16:27 | NUR ---
NURSE NOTES: DR. CHANG ORDERED KNEE BRACE FOR PATIENT. per DR. Chang's order " d/c planning once brace arrives" Addendum: 09/20/18 at 1632 by KARINA HOLLIDAY RN RN BRACE RECEIVED FROM ER AND APPLIED TO LEFT KNEE ORDERED, PATIENT TOLERATED WELL. DR. CHANG NOTIFIED Addendum: 09/20/18 at 1640 by KARINA HOLLIDAY RN RN DR. CHANG ORDERED D/T THE PATIENT TO [facility] @ 1548 DIRECTOR APPAREL ( ERIKA) NOTIFIED AND PER DIRECTOR APPAREL PATIENT WILL D/C @ 1800 TO [facility] ROOM 412 BED 2 Addendum: 09/20/18 at 1643 by KARINA HOLLIDAY RN RN PATIENT REFUSED TO GET D/C. PER PATIENT: SHE WANTS STEROID INJECTION BEFORE GETTING DISCHARGE. D/C BERNARDO NOTIFIED CHARGE NURSE NOTIFIED.
--- NOTE | 2018-09-20 19:39 | NUR ---
HAND-OFF: Report given to KATHIA APARICIO.
[2018-09-20 20:00] VITALS: BP 126/69
[2018-09-21] VITALS: BP 121/68
--- NOTE | 2018-09-21 06:52 | NUR ---
Nurse's notes: pain managed well with ordered medications; left knee brace on; tolerating well after being loosened a little bit earlier this shift; refused 0400 VS; otherwise no significant changes noted.
[2018-09-21 08:00] VITALS: BP 140/63
--- NOTE | 2018-09-21 08:00 | NUR ---
NURSE NOTES:Patient alert to name,resting patient breakfast at bedside,patient not ready to eat at this time,call light within reach,noted leg brace to the left leg.
[2018-09-21] MEDS: Carvedilol 6.25mg Tab ORAL SCH ×2 (09:00→20:45)
[2018-09-21 09:17] VITALS: BP 119/56
[2018-09-21] MEDS: Aspirin Baby 81mg ORAL SCH (09:26)
[2018-09-21] MEDS: Sensipar 30mg Tab ORAL SCH (09:27)
[2018-09-21] MEDS: Amantadine 100mg cap ORAL SCH (09:28)
[2018-09-21] MEDS: Lacosamide 50mg tablet ORAL SCH ×2 (09:28→18:55)
[2018-09-21] MEDS: Multivitamin w/Minerals tab ORAL SCH (09:28)
[2018-09-21] MEDS: DULoxetine 30mg cap ORAL SCH (09:31)
[2018-09-21] MEDS: Heparin 5000 units/ml inj SUBQ SCH ×2 (09:31→20:45)
[2018-09-21] MEDS: Artificial Tears 1.4% Op Soln BOTH EYES SCH ×2 (09:33→18:57)
--- NOTE | 2018-09-21 11:54 | General Progress Note ---
Assessment/Plan Problem List: (1) DVT (deep vein thrombosis) in ICD Codes: O22.30 - Deep phlebothrombosis in , unspecified trimester; I82.409 - Acute embolism and thrombosis of unspecified deep veins of unspecified lower extremity SNOMED: 71277100, 893560049 (2) Seizure ICD Codes: R56.9 - Unspecified convulsions SNOMED: 21580920 (3) CVA (cerebral vascular accident) ICD Codes: I63.9 - Cerebral infarction, unspecified SNOMED: 912312719 (4) Functional quadriplegia ICD Codes: R53.2 - Functional quadriplegia SNOMED: 766508663908641 (5) Diastolic CHF, acute on chronic ICD Codes: I50.33 - Acute on chronic diastolic (congestive) heart failure SNOMED: 64753811, 551205073 Assessment/Plan iv pain meds brace left knee ortho follow up pt wants to proceed with steroid hip injection dc planning after procedure Subjective ROS Limited/Unobtainable: No Constitutional: Reports: malaise, weakness HEENT: Reports: no symptoms Cardiovascular: Reports: no symptoms Respiratory: Reports: no symptoms Gastrointestinal/Abdominal: Reports: no symptoms Genitourinary: Reports: no symptoms Neurologic/Psychiatric: Reports: emotional problems, paresthesia, pre-existing deficit, seizure Endocrine: Reports: no symptoms Hematologic/Lymphatic: Reports: no symptoms Allergies: Coded Allergies: CEFEPIME (Unverified Allergy, Unknown, 11/03/17) LEVOFLOXACIN (Unverified Allergy, Unknown, 11/03/17) PENICILLINS (Unverified Allergy, Unknown, 11/03/17) All Systems: reviewed and negative except above Subjective no events. left leg now in brace. pt wants to proceed with steroid injection in left Hip by IR Objective Last 24 Hour Vital Signs Date Time Temp Pulse Resp B/P (MAP) Pulse Ox O2 Delivery O2 Flow Rate FiO2 09/21/18 09:17 75 119/56 (77) 09/21/18 09:00 Nasal Cannula 2.0 09/21/18 09:00 75 119/56 09/21/18 08:00 97.3 86 20 140/63 (88) 96 09/21/18 07:59 89 18 Nasal Cannula 2.0 28 09/21/18 07:59 97 Nasal Cannula 2.0 28 09/21/18 07:59 Nasal Cannula 2.0 28 09/21/18 00:00 97.2 89 18 121/68 (85) 98 09/20/18 23:51 97.2 09/20/18 21:34 97 18 Nasal Cannula 2.0 28 09/20/18 21:34 Nasal Cannula 2.0 28 09/20/18 21:34 98 Nasal Cannula 2.0 28 09/20/18 21:21 91 126/69 09/20/18 21:00 Nasal Cannula 2.0 09/20/18 20:00 98.2 91 17 126/69 (88) 100 09/20/18 16:00 97.7 88 18 116/67 (83) 100 09/20/18 12:00 98.1 71 17 123/51 (75) 98 Intake and Output 09/20/18 09/21/18 19:00 07:00 Intake Total 600 ml 200 ml Output Total 700 ml 250 ml Balance -100 ml -50 ml Intake Oral 600 ml 200 ml Output Urine Total 700 ml 250 ml # Bowel Movements 1 Height (Feet): 5 Height (Inches): 5.00 Weight (Pounds): 277 Objective General Appearance: WD/WN Neck: supple Cardiovascular: regular rhythm Respiratory/Chest: chest wall non-tender, lungs clear, normal breath sounds Edema: no edema noted Arm (L), no edema noted Arm (R), no edema noted Leg (L), no edema noted Leg (R), no edema noted Pedal (L), no edema noted Pedal (R), no edema noted Generalized Neurologic: bench examiner II-XII grossly normal, alert Kenroy Mcgrath MD Sep 21, 2018 11:54
[2018-09-21 12:00] VITALS: BP 130/70
[2018-09-21] MEDS ORDERED: Isovue-300 100ml vial INJ PRN (12:00)
[2018-09-21 16:00] VITALS: BP 117/66
--- NOTE | 2018-09-21 19:00 | NUR ---
NURSE NOTES: Patient resting,call light within reach.
--- NOTE | 2018-09-21 19:00 | NUR ---
NURSE NOTES: Patient resting at this time,call light within reach.
--- NOTE | 2018-09-21 19:45 | NUR ---
NURSE NOTES: Received a report from MARKUS Zhang. Pt is in stable condition. AAOX4. Able to make needs known. No respiratory distress noted. Uses nasal cannula 2L/min. C/o L hip pain, rated 8/10. Will give pain medication. IV site is patent and intact. Purewick is on. Bed in lowest position. Call light within reach. Will continue to monitor.
--- NOTE | 2018-09-21 19:50 | NUR ---
HAND-OFF: Report given to JUDY APARICIO.
[2018-09-21 20:00] VITALS: BP 122/61
[2018-09-22] VITALS: BP 107/60
[2018-09-22 04:00] VITALS: BP 118/60
--- NOTE | 2018-09-22 06:57 | General Progress Note ---
Assessment/Plan Problem List: (1) DVT (deep vein thrombosis) in ICD Codes: O22.30 - Deep phlebothrombosis in , unspecified trimester; I82.409 - Acute embolism and thrombosis of unspecified deep veins of unspecified lower extremity SNOMED: 50290991, 023894410 (2) Seizure ICD Codes: R56.9 - Unspecified convulsions SNOMED: 76906335 (3) CVA (cerebral vascular accident) ICD Codes: I63.9 - Cerebral infarction, unspecified SNOMED: 971789945 (4) Functional quadriplegia ICD Codes: R53.2 - Functional quadriplegia SNOMED: 484094551519329 (5) Diastolic CHF, acute on chronic ICD Codes: I50.33 - Acute on chronic diastolic (congestive) heart failure SNOMED: 11935137, 419458590 Status: stable, not improved Assessment/Plan iv pain meds brace left knee pt wants to proceed with steroid hip injection dc planning after procedure Subjective ROS Limited/Unobtainable: No Constitutional: Reports: malaise, weakness HEENT: Reports: no symptoms Cardiovascular: Reports: no symptoms Respiratory: Reports: no symptoms Gastrointestinal/Abdominal: Reports: no symptoms Genitourinary: Reports: no symptoms Neurologic/Psychiatric: Reports: pre-existing deficit, seizure Endocrine: Reports: no symptoms Hematologic/Lymphatic: Reports: no symptoms Allergies: Coded Allergies: CEFEPIME (Unverified Allergy, Unknown, 11/03/17) LEVOFLOXACIN (Unverified Allergy, Unknown, 11/03/17) PENICILLINS (Unverified Allergy, Unknown, 11/03/17) All Systems: reviewed and negative except above Subjective no events. left leg now in brace. pt wants to proceed with steroid injection in left Hip by IR pain controlled on iv pain meds. no fever or chills. no cp Objective Last 24 Hour Vital Signs Date Time Temp Pulse Resp B/P (MAP) Pulse Ox O2 Delivery O2 Flow Rate FiO2 09/22/18 04:00 98.1 84 18 118/60 (79) 99 09/22/18 01:36 98.5 09/22/18 00:00 98.5 85 17 107/60 (76) 98 09/21/18 21:10 90 20 Nasal Cannula 2.0 28 09/21/18 21:10 98 Nasal Cannula 2.0 28 09/21/18 21:10 Nasal Cannula 2.0 28 09/21/18 21:00 Nasal Cannula 2.0 09/21/18 20:45 86 122/61 09/21/18 20:00 98.4 86 17 122/61 (81) 99 09/21/18 16:00 99.0 83 117/66 (83) 100 09/21/18 12:00 99.0 81 20 130/70 (90) 97 09/21/18 09:17 75 119/56 (77) 09/21/18 09:00 Nasal Cannula 2.0 09/21/18 09:00 75 119/56 09/21/18 08:00 97.3 86 20 140/63 (88) 96 09/21/18 07:59 89 18 Nasal Cannula 2.0 28 09/21/18 07:59 97 Nasal Cannula 2.0 28 09/21/18 07:59 Nasal Cannula 2.0 28 Intake and Output 09/21/18 09/22/18 18:59 06:59 Intake Total 600 ml Output Total 200 ml Balance 400 ml Intake Oral 600 ml Output Urine Total 200 ml Height (Feet): 5 Height (Inches): 5.00 Weight (Pounds): 277 Objective General Appearance: WD/WN Neck: supple Cardiovascular: regular rhythm Respiratory/Chest: chest wall non-tender, lungs clear, normal breath sounds Edema: no edema noted Arm (L), no edema noted Arm (R), no edema noted Leg (L), no edema noted Leg (R), no edema noted Pedal (L), no edema noted Pedal (R), no edema noted Generalized Neurologic: help desk assistant II-XII grossly normal, alert Kenroy Mcgrath MD Sep 22, 2018 06:57
--- NOTE | 2018-09-22 07:10 | NUR ---
HAND-OFF: Report given to MARKUS Lou. Pt signed the consent for Arthrogram of the L Hip for steroid injection.
[2018-09-22 08:00] VITALS: BP 115/65
[2018-09-22] MEDS: Multivitamin w/Minerals tab ORAL SCH (09:51)
[2018-09-22] MEDS: Aspirin Baby 81mg ORAL SCH (09:51)
[2018-09-22] MEDS: DULoxetine 30mg cap ORAL SCH (09:51)
[2018-09-22] MEDS: Sensipar 30mg Tab ORAL SCH (09:51)
[2018-09-22] MEDS: Lacosamide 50mg tablet ORAL SCH (09:52)
[2018-09-22] MEDS: Carvedilol 6.25mg Tab ORAL SCH (09:52)
[2018-09-22] MEDS: Artificial Tears 1.4% Op Soln BOTH EYES SCH (09:52)
[2018-09-22] MEDS: Heparin 5000 units/ml inj SUBQ SCH (09:53)
[2018-09-22] MEDS: Amantadine 100mg cap ORAL SCH (09:54)
[2018-09-22] MEDS ORDERED: Bupivacaine 0.25% Inj 30ml INJ ONE (10:00)
[2018-09-22] MEDS ORDERED: Kenalog-40 1ml Vial IARTIC ONE (10:30)
[2018-09-22] MEDS ORDERED: Bupivacaine w/Epi 0.25% 30ml Vial INJ ONE (10:30)
--- NOTE | 2018-09-22 11:24 | Pre-Procedure Note/Attestation ---
Pre-Procedure Note/Attestation Complete Prior to Procedure Planned Procedure: left Procedure Narrative: Hip injection under fluoro Indications for Procedure Pre-Operative Diagnosis: L hip osteoarthrosis Attestation I attest that I discussed the nature of the procedure; its benefits; risks and complications; and alternatives (and the risks and benefits of such alternatives ), prior to the procedure, with the patient (or the patient's legal veterans employment representative). I attest that, if there was a reasonable possibility of needing a blood transfusion, the patient (or the patient's legal veterans employment representative) was given the [facility] standardized written summary, pursuant to the Melchor Crow Blood Safety Act ([place] Health and Safety Code # 1645, as amended). I attest that I re-evaluated the patient just prior to the surgery and that there has been no change in the patient's H&P, except as documented below: Alejandro Longoria MD Sep 22, 2018 11:24
--- NOTE | 2018-09-22 11:32 | Brief Operative Note ---
Immediate Post Operative Note Operative Note Pre-op Diagnosis: L hip osteoarthrosis Procedure: L hip arthrogram and injection (attempted, unsuccessful) Post-op Diagnosis: same as pre-op Findings: consistent w/pre-op dx studies - Unable to access joint, probably scarred down due to severe OA Surgeon: Shaquille Engel Anesthesia: local Specimen: none Complications: none Fluids: none Implant(s) used?: No Alejandro Engel MD Sep 22, 2018 11:32
[2018-09-22 12:00] VITALS: BP 123/68
--- NOTE | 2018-09-22 13:01 | Diagnostic Imaging Report ---
INDICATION: Left hip pain, steroid injection requested TECHNIQUE: Informed consent obtained prior to commencement of the procedure. Risks, benefits, alternatives discussed with patient all questions answered. She indicated her willingness to proceed. The skin was sterilely prepped and draped. Local anesthesia with 1% lidocaine. Under real-time thoracic guidance, multiple attempts made at accessing the joint space. A 22-gauge spinal needle was advanced to the femoral head until contact made at multiple points. Contrast was injected, but never seen to easily flow away from the needle tip, and therefore entry into the joint space could never be confirmed. After numerous attempts, the procedure was abandoned, and it was elected not to to inject the steroid cocktail. Patient otherwise tolerated procedure well, without immediate complication Fluoroscopy time: 208 seconds Total dose: 1.79 mGym2 Total number of images: One COMPARISON: Reference made to prior hip CT and hip radiograph FINDINGS: As above IMPRESSION: Access into the joint space could never be confirmed. This is probably related to the extensive degenerative changes demonstrated on recent CT scan. No steroid injection performed Procedure and findings discussed by phone with Dr. Mcgrath at the termination of the procedure
--- NOTE | 2018-09-22 14:15 | NUR ---
NURSE NOTES: pt discharged to [facility] picked up by ambulance with stable condition. All discharge report given to prakash and verbalized understanding. Iv heplock removed and covered with gauze and taped. no bleeding noted. all belongings given to pt. Dilaudid pain med given prior to discharge. VSS.
--- NOTE | 2018-09-23 10:26 | Diagnostic Imaging Report ---
APPROVED REPORT CPT Code: 94406 Comments BILATERAL LEGS PAIN. RIGHT LEG: Common femoral artery waveform analysis is within normal limits at rest. Color duplex sonography reveals patency of the superficial femoral, popliteal and tibial arteries. There is no evidence of stenosis or occlusion within these segments. Doppler tibial artery waveform analysis is compatible with mild ischemia. LEFT LEG: Common femoral artery waveform analysis is within normal limits at rest. Color duplex sonography reveals patency of the superficial femoral, popliteal and tibial arteries. There is no evidence of stenosis or occlusion within these segments. Doppler tibial artery waveform analysis is compatible with moderate ischemia.
--- NOTE | 2018-09-23 13:08 | Discharge Summary ---
Discharge Summary Discharge Summary _ DATE OF ADMISSION: 09/14/2018 DATE OF DISCHARGE: 09/22/2018ortho DISCHARGED BY: Dr. Mcgrath REASON FOR ADMISSION: 68 years old female with multiple medical problems including history of CVA, breast cancer, status post mastectomy, history of DVT, status post IVC filter, diastolic congestive heart failure, COPD, asthma, was [facility] from the correction facility with complaints of severe pain in the left lower extremity. According to the patient and staff patient mobilized in wheelchair when her legs became caught underneath the wheelchair twisted in warm she had severe pain she presented to emergency room plain films were unremarkable and the patient was transferred to correction facility primary care provider was contacted by staff because patient was still had excruciating pain. In light of the intractable pain patient was admitted for pain management and for further evaluation. CONSULTANTS: ortho surgery Dr Evangelista [facility] COURSE: Patient admitted to medical surgical floor. Pain management was addressed. Patient undergone left hip and left knee CT. Left hip CT revealed no definite acute bony trauma, but showed extensive degenerative changes of the left hip. Right hip prosthesis appeared intact. Generalized muscular atrophy noted. CT of the left knee reveal no definite fracture or significant hardware abnormality. Chest x-ray revealed borderline cardiomegaly with minimal interstitial congestion. Pain management was addressed. DVT prophylaxis provided. Arterial duplex bilateral lower extremity revealed no evidence of stenosis or occlusion. Moderate ischemia in the left lower extremity and mild ischemia right lower extremity was noted. Orthopedic surgeon seen and evaluated patient. Surgeon initially ordered x-ray of left hip and left knee. Meantime patient was continued on nonweightbearing status and worked with physical therapist. Patient continued to have significant left lower extremity tenderness with attempted range of motion. Patient unable to tolerate any range of motion of left hip or knee. Distinct tenderness of medial aspect of knee noted. Orthopedic surgeon closely reviewed X rays images. X-ray of the left knee showed questionable nondisplaced fracture of medial femoral epicondylar region. However it was difficult to see it on the CT scan due to prosthesis. Left hip x-ray shows severe degenerative end-stage arthritis. Orthopedic surgeon recommended cortisone injection under ultrasound/ fluoroscopic guidance to the left hip. In regards to left knee , orthopedic surgeons suggested that the patient may have a small nondisplaced fracture. Surgeon recommended knee immobilizer and nonweightbearing status for 4-5 weeks. Steroid injection to the left hip was attempted due to severe left hip pain under fluoroscopic imaging. However, access into the joint space could never be confirmed . Per orthopedic surgeon , probably related to extensive degenerative changes. No steroid injection was performed. Seizure precautions were maintained. Vimpat was continued. No evidence of seizure activity while in the hospital. Antiplatelet therapy with aspirin, statin and beta-arash were continued. No evidence of heart failure decompensation. Patient was subsequently discharged to the correction facility, with nonweightbearing status left lower extremity and knee immobilizer on. Follow up with ortho surgeon in 4-5 weeks as outpatient. FINAL DIAGNOSES Probable nondisplaced fracture of medial femoral epicondylar region left knee Severe degenerative end-stage arthritis left hip Left lower extremity intractable pain secondary to above Seizure disorder Functional quadriplegia Hx of CVA Congestive ehart failure DISCHARGE MEDICATIONS: See Medication Reconciliation list. DISCHARGE INSTRUCTIONS: Patient was discharged to the correction facility. Follow up with medical doctor at the facility. I have been assigned to dictate discharge summary for this account. I was not involved in the patient's management. Tosha Goyal NP Sep 23, 2018 13:08
== END 2018-09-22 14:18 | DRG 533 ==
LOC: 4E 18:09
PROC: BQ01YZZ Plain Radiography of Left Hip using Other Contrast (ICD-10-PCS; principal; 2018-09-22)
DX: S72.435A Nondisplaced fracture of medial condyle of left femur, initial encounter for closed fracture (principal); R53.2 Functional quadriplegia; I50.33 Acute on chronic diastolic (congestive) heart failure; I50.32 Chronic diastolic (congestive) heart failure; Z68.42 Body mass index [BMI] 45.0-49.9, adult; I11.0 Hypertensive heart disease with heart failure; Z86.73 Personal history of transient ischemic attack (TIA), and cerebral infarction without residual deficits; J45.909 Unspecified asthma, uncomplicated; Z88.1 Allergy status to other antibiotic agents; Z88.0 Allergy status to penicillin; Z88.8 Allergy status to other drugs, medicaments and biological substances; Z86.718 Personal history of other venous thrombosis and embolism; X58.XXXA Exposure to other specified factors, initial encounter; Y92.129 Unspecified place in nursing home as the place of occurrence of the external cause; Z85.3 Personal history of malignant neoplasm of breast; M16.12 Unilateral primary osteoarthritis, left hip; E66.01 Morbid (severe) obesity due to excess calories; Z96.641 Presence of right artificial hip joint; R56.9 Unspecified convulsions
CPT/HCPCS: 36415; 71045; 73502; 81003; 83880; 85025; 87081; 87086; 87181; 93925; 94640; 94664; 94760; J7620

== ENCOUNTER 2019-10-10 16:44 | Inpatient (IN) | payer MEDICARE, OTHER ==
[~2019-10-10] VITALS: Ht 165.1 cm; Wt 172.8 kg
--- NOTE | 2019-10-10 16:44 | NUR ---
ED Nurse Note: brought in by ambulance lexx ra 68 from [facility] for bilateral knee pain. per ems temp 102f oral. denies cough, nausea, or vomitting. received pt into [facility]. changed into gown; attached to monitor; all safety measures met. covid 19 precautions observed; pt wearing mask. iv access established. blood, initial lactic, blood cultures, flu swab, mrsa vre cre swabs, covid 19 swab collected; sent down to lab. unable to collect urine at this time; patient states she will provide urine when able; refused straight cath.
--- NOTE | 2019-10-10 17:08 | Emergency Room Report ---
History of Present Illness General Chief Complaint: Pain Source: Patient, EMS Present Illness HPI Patient presents from nursing facility by paramedics The patient's physician at the nursing facility did contact us that has been other positive covi patient at this facility. patient developed A fever at the nursing facility. She has history of COPD there was no reports of obvious cough However there was concern for covid 19 And patient was brought to emergency room by 911 There was no reports of vomiting or diarrhea patient has had chronic knee pain and hip pain Allergies: Coded Allergies: CEFEPIME (Unverified Allergy, Unknown, 11/03/17) LEVOFLOXACIN (Unverified Allergy, Unknown, 11/03/17) PENICILLINS (Unverified Allergy, Unknown, 11/03/17) COVID-19 Screening Contact w/high risk pt: No Recent Travel to affected area: No Experienced COVID-19 symptoms?: Yes COVID-19 symptoms experienced: Fever (T>100.4F or >38C) Patient History Past Medical History: see triage record Reviewed Nursing Documentation: PMH: Agreed; PSxH: Agreed Nursing Documentation-PMH Hx Cardiac Problems: Yes - Hyperlipidemia, IVC Filter Hx Hypertension: Yes Hx Asthma: Yes Hx COPD: Yes Hx Cancer: Yes - Right breast cancer Hx Gastrointestinal Problems: Yes Hx Dialysis: No - HYPERPARATHYROIDISM Hx Neurological Problems: Yes - Polyneuropathy Hx Cerebrovascular Accident: Yes - cerebral aneurysm, CVA left sided weakness Hx Seizures: Yes - epilepsy Hx Epilepsy: Yes Hx Paralysis: Yes - BLE Review of Systems All Other Systems: negative except mentioned in HPI Physical Exam Vital Signs Date Time Temp Pulse Resp B/P (MAP) Pulse Ox O2 Delivery O2 Flow Rate FiO2 10/10/19 16:35 102.0 116 24 172/96 (121) 96 Room Air Sp02 EP Interpretation: reviewed, normal General Appearance: no apparent distress Head: normocephalic, atraumatic Eyes: bilateral eye PERRL, bilateral eye EOMI ENT: EOM grossly intact Neck: supple Respiratory: lungs clear, no retraction, no accessory muscle use Cardiovascular #1: regular rate, rhythm Gastrointestinal: non tender, soft Musculoskeletal: other - Discomfort with any touch either knee Neurologic: alert, oriented x3 Skin: no rash Lymphatic: no adenopathy Procedures Critical Care Time Critical Care Time 50 minutes for emergent presentation concerning for possible COVID and rapid deterioration not including procedural time Medical Decision Making Diagnostic Impression: Primary Impression: Pneumonia ER Course Patient is a fairly complex patient with multiple differential to consideration including but not limited to cardiac cardiopulmonary and vascular emergencies Patient's x-ray, not diagnostic at this time patient requires 2 L nasal cannula however this is at baseline given her COPD condition Patient is admitted for further testing and inpatient care evaluation of covid-19 Labs Test 10/10/19 16:15 White Blood Count 7.2 K/UL (4.8-10.8) Red Blood Count 4.17 M/UL (4.20-5.40) Hemoglobin 11.7 G/DL (12.0-16.0) Hematocrit 38.6 % (37.0-47.0) Mean Corpuscular Volume 92 FL (80-99) Mean Corpuscular Hemoglobin 28.1 PG (27.0-31.0) Mean Corpuscular Hemoglobin Concent 30.4 G/DL (32.0-36.0) Red Cell Distribution Width 17.1 % (11.6-14.8) Platelet Count 261 K/UL (150-450) Mean Platelet Volume 7.5 FL (6.5-10.1) Neutrophils (%) (Auto) 75.8 % (45.0-75.0) Lymphocytes (%) (Auto) 12.6 % (20.0-45.0) Monocytes (%) (Auto) 9.9 % (1.0-10.0) Eosinophils (%) (Auto) 1.0 % (0.0-3.0) Basophils (%) (Auto) 0.8 % (0.0-2.0) Sodium Level 145 MMOL/L (136-145) Potassium Level 3.6 MMOL/L (3.5-5.1) Chloride Level 103 MMOL/L (98-107) Carbon Dioxide Level 35 MMOL/L (21-32) Anion Gap 7 mmol/L (5-15) Blood Urea Nitrogen 8 mg/dL (7-18) Creatinine 0.8 MG/DL (0.55-1.30) Estimat Glomerular Filtration Rate > 60 mL/min (>60) Glucose Level 122 MG/DL (74-106) Lactic Acid Level 1.90 mmol/L (0.4-2.0) Calcium Level 8.8 MG/DL (8.5-10.1) Total Bilirubin 0.4 MG/DL (0.2-1.0) Aspartate Amino Transf (AST/SGOT) 27 U/L (15-37) Alanine Aminotransferase (ALT/SGPT) 38 U/L (12-78) Alkaline Phosphatase 81 U/L (46-116) Total Creatine Kinase 29 U/L (26-308) Creatine Kinase MB < 0.5 NG/ML (0.0-3.6) Creatine Kinase MB Relative Index 1.7 Troponin I 0.000 ng/mL (0.000-0.056) Pro-B-Type Natriuretic Peptide 131 pg/mL (0-125) Total Protein 7.2 G/DL (6.4-8.2) Albumin 3.2 G/DL (3.4-5.0) Globulin 4.0 g/dL Albumin/Globulin Ratio 0.8 (1.0-2.7) Rhythm Strip Diag. Results EP Interpretation: yes Rate: 110 Rhythm: no PVC's, no ectopy, other - Sinus tach Chest X-Ray Diagnostic Results Chest X-Ray Diagnostic Results : Chest X-Ray Ordered: Yes # of Views/Limited/Complete: 1 View Indication: Shortness of Breath EP Interpretation: Yes Interpretation: no consolidation, no effusion, no pneumothorax, other - Mild atelectasis Impression: Other Electronically Signed by: Aurora Hensley DO Last Vital Signs Date Time Temp Pulse Resp B/P (MAP) Pulse Ox O2 Delivery O2 Flow Rate FiO2 10/10/19 16:35 102.0 116 24 172/96 (121) 96 Room Air Status: improved Disposition: ADMITTED INPATIENT Condition: Serious Aurora Hensley DO Oct 10, 2019 17:08
[2019-10-10 17:39] VITALS: BP 145/76
[2019-10-10 17:46] LABS: BASOPHILS % (AUTO) 0.8 % (0.0-2.0); HEMATOCRIT 38.6 % (37.0-47.0); HEMOGLOBIN 11.7 G/DL (12.0-16.0); LYMPHOCYTES % (AUTO) 12.6 % (20.0-45.0); MEAN CORPUSCULAR VOLUME 92 FL (80-99); MONOCYTES % (AUTO) 9.9 % (1.0-10.0); NEUTROPHILS % (AUTO) 75.8 % (45.0-75.0); PLATELET COUNT 261 K/UL (150-450); RED BLOOD COUNT 4.17 M/UL (4.20-5.40); RED CELL DISTRIBUTION WIDTH 17.1 % (11.6-14.8); WHITE BLOOD COUNT 7.2 K/UL (4.8-10.8)
--- NOTE | 2019-10-10 17:53 | Diagnostic Imaging Report ---
EXAM: XR Chest, 1 View CLINICAL HISTORY: CP TECHNIQUE: Frontal view of the chest. COMPARISON: 09/15/18 FINDINGS: Limitations: Study limited due to portable technique. Lungs: Low lung volumes with bronchovascular crowding. No consolidation, pleural effusion, or pneumothorax. Pleural space: See above. Heart: Unremarkable. No cardiomegaly. Mediastinum: Unremarkable. Bones/joints: Unremarkable. IMPRESSION: 1. Study limited due to portable technique. 2. Low lung volumes with bronchovascular crowding. 3. Otherwise no acute cardiopulmonary disease. 4. If there is continued concern, recommend frontal and lateral chest radiographs or CT.
--- NOTE | 2019-10-10 18:00 | NUR ---
ED Nurse Note: patient resting in bed with no acute distress. patient reports relief of pain after medication admin; tolerated well. ermd aware of temp; no new orders received. attempted to provide full integumentary assessment; no sacral wounds or pressure sores on bony promices noted. 2l nasal canula in place; spo2 94%. vss. will continue to monitor.
[2019-10-10 18:18] LABS: ANION GAP 7 mmol/L (5-15); BLOOD UREA NITROGEN 8 mg/dL (7-18); CALCIUM 8.8 MG/DL (8.5-10.1); CARBON DIOXIDE 35 MMOL/L (21-32); CHLORIDE 103 MMOL/L (98-107); CREATININE 0.8 MG/DL (0.55-1.30); POTASSIUM 3.6 MMOL/L (3.5-5.1); SODIUM 145 MMOL/L (136-145)
[2019-10-10 18:32] LABS: ALANINE AMINOTRANSFERASE 38 U/L (12-78); ALBUMIN 3.2 G/DL (3.4-5.0); ALBUMIN/GLOBULIN RATIO 0.8 (1.0-2.7); ALKALINE PHOSPHATASE 81 U/L (46-116); ASPARTATE AMINO TRANSFERASE 27 U/L (15-37); BILIRUBIN,TOTAL 0.4 MG/DL (0.2-1.0); CKMB < 0.5 NG/ML (0.0-3.6); CREATINE KINASE 29 U/L (26-308)
[2019-10-10 19:08] VITALS: BP 150/83
--- NOTE | 2019-10-10 19:30 | NUR ---
ED Nurse Note: REPORT GIVEN TO YUDY APARICIO. ENDORSED PENDING URINE AND FULL INTEGUMENTARY ASSESSMENT.
--- NOTE | 2019-10-10 19:50 | NUR ---
TRANSFER TO FLOOR: Patient transferred to SDU 235-2 as ordered, per BERNARDO SANCHEZ. Report given to YUDY APARICIO. PATIENT STABLE FOR TRANSFER. PATIENT TRANSFERRED TO UNIT WITH RN AND HECTOR. PATIENT MASK IN PLACE AND PT COVERED WITH EMERGENCY BLANKET; COVID PRECAUTIONS OBSERVED. PATIENT SENT WITH BELONGINGS LIST AND ADMISSION PACKET.
[2019-10-10 20:00] VITALS: BP 127/83
--- NOTE | 2019-10-10 20:00 | NUR ---
NURSE NOTES: received pt from Terrance Mccall RN from ER., pt is is awake and AOx4, pt states no pain at this moment. pt has 2L of NC and O2sat is at 97%. color television console monitor attached. new gown and purewick placed. pt had one eye glasses. skin intact and multiple surgery scars noted. no opend wound noted at this moment. Optifoam applied bilateral heels for protection. call light within reach. Left AC 18G IV site intact, clean, and patent. bed at the lowest position, alarmed, and locked. will continue to monitor pt with plan of care.
--- NOTE | 2019-10-10 20:33 | NUR ---
NURSE NOTES: spoke to Genevieve ZAMORA from [facility], they will send the package of medical record, polst, and medication list over the fax. will wait for the fax.
--- NOTE | 2019-10-10 20:59 | NUR ---
NURSE NOTES: notified to get the admission order. will wait for call back.
[2019-10-10] MEDS ORDERED: GUAIFENESI100 MG/5 M ORAL (23:24)
[2019-10-10] MEDS ORDERED: ADVAIR HFA 230-12 GM INH (23:24)
[2019-10-10] MEDS ORDERED: ISOPTO TEARS15 ML OP (23:24)
[2019-10-10] MEDS ORDERED: KLONOPIN0.5 MG ORAL (23:24)
[2019-10-10] MEDS ORDERED: PROTONIX40 MG ORAL (23:24)
[2019-10-10] MEDS ORDERED: DOCUSATE SODIU250 MG ORAL (23:24)
[2019-10-10] MEDS ORDERED: MELATONIN3 MG ORAL (23:24)
[2019-10-10] MEDS ORDERED: guaiFENesin 100mg/5ml Liq ud ORAL PRN (23:30)
[2019-10-10] MEDS ORDERED: Albuterol/Ipratropium 3ml neb HHN PRN (23:30)
[2019-10-10] MEDS ORDERED: Milk of Magnesia 30ml Ud ORAL PRN (23:30)
[2019-10-11] VITALS: BP 120/78
--- NOTE | 2019-10-11 01:00 | NUR ---
NURSE NOTES: provided clean and new gown, blanket and socks. changed position Q 2hrs. oral care give. call light within reach. no SOB noted.
--- NOTE | 2019-10-11 01:46 | NUR ---
NURSE NOTES: pt is sleeping at this moment, no s/s of pain. call light within reach.
[2019-10-11 04:00] VITALS: BP 125/80
[2019-10-11] MEDS: Lyrica 75mg cap ORAL SCH ×3 (05:25→22:33)
--- NOTE | 2019-10-11 06:38 | NUR ---
NURSE NOTES: notified Dr. Mcgrath regarding pt wants pain medicine, and unable to get Urine from pt due to pt's pain and pt's condition at this moment.
--- NOTE | 2019-10-11 07:15 | NUR ---
HAND-OFF: Report given to Steven RN., pt remains stable. endorsed plan of care.
--- NOTE | 2019-10-11 07:22 | NUR ---
NURSE NOTES: Received report from Rachell RN. Pt. on droplet isolation r/o Covid19. Will cont. to monitor.
[2019-10-11 08:00] VITALS: BP 137/64
[2019-10-11] MEDS: Lacosamide 50mg tablet ORAL SCH ×2 (08:19→20:25)
[2019-10-11] MEDS: Docusate 250mg cap ORAL SCH ×2 (08:19→17:43)
[2019-10-11] MEDS: Aspirin Baby 81mg ORAL SCH (08:20)
[2019-10-11] MEDS: Heparin 5000 units/ml inj SUBQ SCH ×2 (08:22→20:32)
--- NOTE | 2019-10-11 08:30 | NUR ---
NURSE NOTES: Pt. in bed, a/o x 4. No sign of distress. On O2 at 2LPM via NC. O2 sat at 96%. C/O generalized pain 8-9/10. [place] 10/325mg. 1 tab was given. Assisted pt. to eat. Pt. said she is legally blind. Pt. afebrile. IV site at left AC #18g. in placed patent/intact SL. Call light within reach. Will cont. to monitor.
[2019-10-11] MEDS: HYDROcodone/Acetamin 10/325 tab ORAL PRN ×3 (08:31→20:25)
[2019-10-11] MEDS: Sensipar 30mg Tab ORAL SCH (08:32)
[2019-10-11] MEDS: DULoxetine 30mg cap ORAL SCH (08:32)
[2019-10-11] MEDS: Carvedilol 6.25mg Tab ORAL SCH ×2 (08:32→20:31)
[2019-10-11 12:00] VITALS: BP 143/76
[2019-10-11 16:00] VITALS: BP 120/74
--- NOTE | 2019-10-11 16:45 | Consultation ---
DATE OF CONSULTATION: 10/11/2019 NOTE: INCOMPLETE DICTATION INFECTIOUS DISEASE CONSULTATION This consult is for coverage of Dr. Serna. CONSULTING PHYSICIAN: Chris Arroyo M.D. PRIMARY ATTENDING: Kenroy Mcgrath M.D. REASON FOR CONSULT: Fever, rule out of COVID-19. HISTORY OF PRESENT ILLNESS: This is a 69-year-old female admitted last night from a nursing facility. Chris Arroyo M.D. DR: ROBI JOB#: [id number] CC:
--- NOTE | 2019-10-11 16:45 | History and Physical Report ---
DATE OF ADMISSION: 10/10/2019 CHIEF COMPLAINT: Shortness of breath and fevers, rule out COVID-19. HISTORY OF PRESENT ILLNESS: The patient is a 69-year-old female. She currently resides at a halfway facility. She has a history of stroke, obesity, asthma, and hypertension. She has a prior history of breast cancer as well as seizure disorder. She was transferred from a halfway facility with complaints of fevers and shortness of breath. Of note, the facility has had two additional patients that were transferred out several days prior due to fevers. Those patients both tested positive for COVID-19. On evaluation in the emergency room, the patient was febrile. She had wheezing. She was given breathing treatments with supplemental oxygen. She is now admitted for further evaluation and care. PAST MEDICAL HISTORY: As above. PAST SURGICAL HISTORY: Includes mastectomy. CURRENT MEDICATIONS: Reconciled and reviewed. ALLERGIES: Include cefepime, levofloxacin, penicillin. FAMILY HISTORY: Noncontributory. SOCIAL HISTORY: Negative for tobacco, ethanol, or drugs. REVIEW OF SYSTEMS: GENERAL: Positive for fevers and chills, but no night sweats. HEENT: No headaches or visual changes. CARDIOPULMONARY: No chest pain. Positive shortness of breath. Minimal cough. GASTROINTESTINAL: No nausea or vomiting. GENITOURINARY: No urgency or frequency. MUSCULOSKELETAL: No joint pain or swelling. NEUROLOGIC: No evidence of seizures. PHYSICAL EXAMINATION: VITAL SIGNS: Temperature was 101.2, pulse 96, respirations 20, and blood pressure 137/64. GENERAL: The patient is well developed, in no apparent distress. Awake, alert, able to speak in full sentences. NECK: Supple. HEART: Regular rate and rhythm. LUNGS: Significant for scattered wheezes. ABDOMEN: Soft, nontender, and nondistended. EXTREMITIES: Without clubbing, cyanosis, or edema. LABORATORY DATA: Chest x-ray was clear. White count 7, hemoglobin 11, and platelet count of 261,000. Sodium 145, potassium 3.6. Troponin was negative. ASSESSMENT: This is a pleasant female with multiple medical problems including history of morbid obesity, hypertension, diabetes, history of stroke, and prior history of breast cancer, admitted with complaints of fevers suspect secondary to coronavirus infection. PLAN: 1. Await COVID-19 PCR. 2. Respiratory treatments and supple oxygen as needed. 3. ID consultation has been obtained. 4. We will continue the patient's current outpatient medication regimen, oral IV pain medications as needed. Kenroy Mcgrath M.D. DR: ILEANA JOB#: [id number] CC:
[2019-10-11] MEDS ORDERED: Tubing IV Secondary IV ONE (17:27)
[2019-10-11] MEDS ORDERED: Azithromycin 250mg tab ORAL SCH (18:00)
--- NOTE | 2019-10-11 19:33 | NUR ---
HAND-OFF: Report given to Radha/Lali APARICIO. Pt. remain stable.
--- NOTE | 2019-10-11 19:41 | NUR ---
NURSE NOTES: Received report from MARKUS Limon. Patient is awake, alert and oriented x 4. Patient is on regular diet, low sodium. Skin is intact. Connected to nasal cannula @ 2 Liters with no respiratory distress reported. IV site on Left Forearm G-18. 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 Safety measures are in placed. Bed in low and locked position. Side rails up x 2. Call light and bedside table within reach, bed alarm is on. Seizure precaution in placed, side rails padded, suction is at bedside. Patient is on droplet precaution, to rule out covid-19. Will continue plan of care.
[2019-10-11 20:00] VITALS: BP 157/86
[2019-10-11] MEDS: clonazePAM 0.5mg tab ORAL SCH (20:25)
[2019-10-12] VITALS: BP 144/75
--- NOTE | 2019-10-12 00:05 | NUR ---
NURSE NOTES: Patient states she uses CPAP when she's sleeping. Called Dr. Mcgrath's office and Dr. Andino's emergency line picked up and left a voice mail for CPAP order. Awaiting for call back.
[2019-10-12] MEDS: HYDROcodone/Acetamin 10/325 tab ORAL PRN ×4 (02:24→18:22)
[2019-10-12 05:00] VITALS: BP 152/71
[2019-10-12] MEDS: Lyrica 75mg cap ORAL SCH ×3 (05:31→22:45)
--- NOTE | 2019-10-12 07:14 | NUR ---
HAND-OFF: Report given to MARKUS Magana. Patient is in stable condition. Plan of care endorsed.
--- NOTE | 2019-10-12 07:14 | NUR ---
NURSE NOTES: Received report from Radha RN. Pt in bed awake and orientedx4 and able to make needs known. IV site in LFA 18G SL patent and asymptomatic. Call light and phone within easy reach. Bed in lowest position and locked. On 2LPM via N/C and sating 96%. C/o generalized pain 8/10 and [place] will be given as ordered for pain. Side rails x3 up for safety. Will continue to plan of care.
--- NOTE | 2019-10-12 07:43 | General Progress Note ---
Assessment/Plan Problem List: (1) COPD with asthma ICD Codes: J44.9 - Chronic obstructive pulmonary disease, unspecified SNOMED: 62703353538390816 (2) Seizure ICD Codes: R56.9 - Unspecified convulsions SNOMED: 18466088 (3) CVA (cerebral vascular accident) ICD Codes: I63.9 - Cerebral infarction, unspecified SNOMED: 966166400 (4) Functional quadriplegia ICD Codes: R53.2 - Functional quadriplegia SNOMED: 323606493898438 (5) COVID-19 ICD Codes: U07.1 - COVID-19 SNOMED: 560827177 Status: stable Assessment/Plan: cont current rx d.w micro- covid 19 not back yet. cont resp care as needed prn pain rx keep dry Subjective ROS Limited/Unobtainable: No Constitutional: Reports: malaise, weakness HEENT: Reports: no symptoms Cardiovascular: Reports: chest pain Respiratory: Reports: cough, SOB at rest Gastrointestinal/Abdominal: Reports: no symptoms Genitourinary: Reports: no symptoms Neurologic/Psychiatric: Reports: no symptoms Endocrine: Reports: no symptoms Hematologic/Lymphatic: Reports: no symptoms Allergies: Coded Allergies: CEFEPIME (Unverified Allergy, Unknown, 11/03/17) LEVOFLOXACIN (Unverified Allergy, Unknown, 11/03/17) PENICILLINS (Unverified Allergy, Unknown, 11/03/17) All Systems: reviewed and negative except above Subjective fever trending down. still with sob and some wheezing. covid-19 not back yet. d/ w night RN Objective Last 24 Hour Vital Signs Date Time Temp Pulse Resp B/P (MAP) Pulse Ox O2 Delivery O2 Flow Rate FiO2 10/12/19 05:00 99.3 99 22 152/71 (98) 94 10/12/19 04:00 2.0 10/12/19 04:00 Nasal Cannula 2.0 10/12/19 03:38 96 10/12/19 00:00 Nasal Cannula 2.0 10/12/19 00:00 99.5 97 22 144/75 (98) 93 10/11/19 23:31 97 10/11/19 20:31 96 157/86 10/11/19 20:00 94 10/11/19 20:00 2.0 10/11/19 20:00 98.2 95 20 157/86 (109) 90 10/11/19 20:00 Nasal Cannula 2.0 10/11/19 19:00 97 Nasal Cannula 2.0 28 10/11/19 16:00 2.0 10/11/19 16:00 Nasal Cannula 2.0 10/11/19 16:00 98.6 90 20 120/74 (89) 98 10/11/19 15:20 94 10/11/19 12:00 Nasal Cannula 2.0 10/11/19 12:00 97.3 92 20 143/76 (98) 94 10/11/19 12:00 2.0 10/11/19 11:50 90 10/11/19 09:01 97.7 10/11/19 08:32 96 137/64 10/11/19 08:00 Nasal Cannula 2.0 10/11/19 08:00 2.0 10/11/19 08:00 97.7 96 20 137/64 (88) 96 10/11/19 07:40 97 Intake and Output 10/11/19 10/12/19 19:00 07:00 Intake Total 480 ml 600 ml Balance 480 ml 600 ml Intake Oral 480 ml 600 ml # Voids 3 4 Height (Feet): 5 Height (Inches): 5.00 Weight (Pounds): 405 General Appearance: WD/WN, alert Neck: supple Cardiovascular: normal rate, regular rhythm Respiratory/Chest: chest wall non-tender, no respiratory distress, no accessory muscle use Abdomen: normal bowel sounds, non tender, soft, no organomegaly, no mass Edema: no edema noted Arm (L), no edema noted Arm (R), no edema noted Leg (L), no edema noted Leg (R), no edema noted Pedal (L), no edema noted Pedal (R), no edema noted Generalized Kenroy Mcgrath MD Oct 12, 2019 07:43
[2019-10-12 07:45] VITALS: BP 145/110
[2019-10-12] MEDS: Heparin 5000 units/ml inj SUBQ SCH ×2 (09:48→21:25)
[2019-10-12] MEDS: Carvedilol 6.25mg Tab ORAL SCH ×2 (09:53→21:26)
[2019-10-12] MEDS: Sensipar 30mg Tab ORAL SCH (09:53)
[2019-10-12] MEDS: DULoxetine 30mg cap ORAL SCH (09:53)
[2019-10-12] MEDS: Aspirin Baby 81mg ORAL SCH (09:53)
[2019-10-12] MEDS: Lacosamide 50mg tablet ORAL SCH ×2 (09:53→21:24)
[2019-10-12] MEDS: Docusate 250mg cap ORAL SCH ×2 (09:54→18:22)
--- NOTE | 2019-10-12 10:45 | Infectious Diseases Prog Note ---
Assessment/Plan Assessment/Plan antibiotics : hydroxychloroquin, azithromycin A 1. r/o covid 19 pneumonia 2. COPD 3. asthma 4. CVA 5. seizures P 1. continue hydroxychloroquin, azithromycin 2. COVID 19 pending 3. will follow up clinically 4. continue isolation Subjective Constitutional: Denies: fever, chills Respiratory: Reports: shortness of breath, productive cough Gastrointestinal/Abdominal: Denies: nausea, vomiting, diarrhea Musculoskeletal: Reports: pain Allergies: Coded Allergies: CEFEPIME (Unverified Allergy, Unknown, 11/03/17) LEVOFLOXACIN (Unverified Allergy, Unknown, 11/03/17) PENICILLINS (Unverified Allergy, Unknown, 11/03/17) Objective Vital Signs Last 24 Hour Vital Signs Date Time Temp Pulse Resp B/P (MAP) Pulse Ox O2 Delivery O2 Flow Rate FiO2 10/12/19 09:53 95 145/110 10/12/19 08:00 95 10/12/19 08:00 Nasal Cannula 2.0 10/12/19 08:00 2.0 10/12/19 07:45 97 Nasal Cannula 2.0 28 10/12/19 07:45 98.7 99 22 145/110 (122) 96 10/12/19 05:00 99.3 99 22 152/71 (98) 94 10/12/19 04:00 2.0 10/12/19 04:00 Nasal Cannula 2.0 10/12/19 03:38 96 10/12/19 00:00 Nasal Cannula 2.0 10/12/19 00:00 99.5 97 22 144/75 (98) 93 10/11/19 23:31 97 10/11/19 20:31 96 157/86 10/11/19 20:00 94 10/11/19 20:00 2.0 10/11/19 20:00 98.2 95 20 157/86 (109) 90 10/11/19 20:00 Nasal Cannula 2.0 10/11/19 19:00 97 Nasal Cannula 2.0 28 10/11/19 16:00 2.0 10/11/19 16:00 Nasal Cannula 2.0 10/11/19 16:00 98.6 90 20 120/74 (89) 98 10/11/19 15:20 94 10/11/19 12:00 Nasal Cannula 2.0 10/11/19 12:00 97.3 92 20 143/76 (98) 94 10/11/19 12:00 2.0 10/11/19 11:50 90 Height (Feet): 5 Height (Inches): 5.00 Weight (Pounds): 405 Extremities: other - + edema Microbiology Date/Time Source Procedure Growth Status 10/10/19 16:15 Blood Blood Culture - Preliminary NO GROWTH AFTER 24 HOURS Resulted 10/10/19 16:00 Blood Blood Culture - Preliminary NO GROWTH AFTER 24 HOURS Resulted 10/10/19 16:15 Nasal Nares - Final Complete 10/10/19 16:15 Nasal Nares - Final Complete 10/10/19 16:00 Rectum Received Current Medications Medications (Trade) Dose Ordered Sig/Saira Route PRN Reason Start Time Stop Time Status Last Admin Dose Admin Acetaminophen (Tylenol) 650 mg Q6H PRN ORAL Mild Pain/Temp > 100.5 10/10/19 23:30 11/09/19 23:29 10/11/19 01:55 Acetaminophen/ Hydrocodone Bitart ([place] 10/325) 1 tab Q4H PRN ORAL For Pain 10/11/19 06:45 10/18/19 06:44 10/12/19 07:45 Albuterol/ Ipratropium (Albuterol/ Ipratropium) 3 ml Q6H PRN HHN Shortness of Breath 10/10/19 23:30 10/15/19 23:29 Aspirin (ASA) 81 mg DAILY ORAL 10/11/19 09:00 11/25/19 08:59 10/12/19 09:53 Atorvastatin Calcium (Lipitor) 10 mg BEDTIME ORAL 10/11/19 21:00 01/09/20 20:59 10/11/19 20:23 Azithromycin (Zithromax) 250 mg Q24H ORAL 10/12/19 18:00 10/15/19 18:01 Carvedilol (Coreg) 6.25 mg EVERY 12 HOURS ORAL 10/11/19 09:00 11/10/19 08:59 10/12/19 09:53 Cinacalcet (Sensipar) 30 mg DAILY ORAL 10/11/19 09:00 01/09/20 08:59 10/12/19 09:53 Clonazepam (KlonoPIN) 0.5 mg QHS ORAL 10/11/19 21:00 10/18/19 20:59 10/11/19 20:25 Docusate Sodium (Colace) 250 mg TWICE A DAY ORAL 10/11/19 09:00 11/10/19 08:59 10/12/19 09:54 Duloxetine HCl (Cymbalta) 60 mg DAILY ORAL 10/11/19 09:00 01/09/20 08:59 10/12/19 09:53 Ferrous Sulfate (Feosol) 325 mg TID ORAL 10/11/19 09:00 01/09/20 08:59 10/12/19 09:54 Folic Acid (Folate) 1 mg DAILY ORAL 10/11/19 09:00 11/10/19 08:59 10/12/19 09:53 Furosemide (Lasix) 40 mg BID ORAL 10/11/19 09:00 11/10/19 08:59 10/12/19 09:53 Guaifenesin (Robitussin) 100 mg Q4H PRN ORAL cough 10/10/19 23:30 01/08/20 23:29 10/11/19 20:32 Heparin Sodium (Porcine) (Heparin 5000 units/ml) 5,000 units EVERY 12 HOURS SUBQ 10/11/19 09:00 11/25/19 08:59 10/12/19 09:48 Hydroxychloroquine Sulfate (Plaquenil) 200 mg BID ORAL 10/12/19 18:00 10/16/19 09:01 Lacosamide (Vimpat) 100 mg Q12HR ORAL 10/11/19 09:00 01/09/20 08:59 10/12/19 09:53 Lidocaine (Lidoderm 5% PATCH) 3 patch DAILY TDERMAL 10/11/19 09:00 01/09/20 08:59 10/12/19 09:54 Magnesium Hydroxide (Mom) 30 ml DAILY PRN ORAL Constipation 10/10/19 23:30 11/09/19 23:29 Pantoprazole (Protonix) 40 mg EVERY 12 HOURS ORAL 10/11/19 09:00 11/10/19 08:59 10/12/19 09:53 Potassium Chloride (K-Dur) 20 meq DAILY ORAL 10/11/19 09:00 01/09/20 08:59 10/12/19 09:54 Pregabalin (Lyrica) 150 mg Q8HR ORAL 10/11/19 06:00 11/10/19 05:59 10/12/19 05:31 Promethazine HCl/ Codeine (Phenergan with Codeine) 5 ml Q4H PRN ORAL For Cough 10/10/19 23:30 11/09/19 23:29 Huma Serna MD Oct 12, 2019 10:45
[2019-10-12 12:00] VITALS: BP 154/84
--- NOTE | 2019-10-12 13:50 | NUR ---
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 102.0 HR 116 RR 24 B/P 172/96 2L NC O2 SAT @ 98% CO2 35 BNP 131 CXR= Low lung volumes with bronchovascular crowding. No consolidation,pleural effusion, or pneumothorax. IS: DILAUDID IV DROPLET ISOLATION ADMITTED TO STEP DOWN STEP DOWN STATUS DCP RETURN TO [facility]
[2019-10-12] MEDS: Promethazine/Codeine 5ml UD ORAL PRN (14:47)
[2019-10-12 16:00] VITALS: BP 112/76
[2019-10-12] MEDS: Azithromycin 250mg tab ORAL SCH (18:22)
--- NOTE | 2019-10-12 19:15 | Consultation ---
DATE OF CONSULTATION: 10/11/2019 INFECTIOUS DISEASE CONSULTATION This consult is for coverage of Huma Serna M.D. PRIMARY ATTENDING PHYSICIAN: Kenroy Mcgrath M.D. REASON FOR CONSULTATION: Fever, rule out COVID-19. HISTORY OF PRESENT ILLNESS: This is a 69-year-old female admitted last night from a nursing facility. The patient had contact with other patients who were positive in the facility and [facility] with temperature of 102 in the hospital. She has history of COPD, asthma, and does not have significant change in the coughing. PAST MEDICAL HISTORY: COPD, asthma, has history of right mastectomy because of breast cancer, history of IVC filter placement, morbid obesity, peripheral neuropathy, and left knee fracture. MEDICATIONS: Atorvastatin, clonazepam, heparin, aspirin, Sensipar, carvedilol, Colace, Cymbalta, ferrous sulfate, folic acid, Lasix, Protonix, potassium chloride, lidocaine, hydrocodone plus Tylenol, Phenergan With Codeine, albuterol/ipratropium inhaler, guaifenesin, and magnesium hydroxide. ALLERGIES: Allergic to cefepime, Levaquin, and penicillin. SOCIAL HISTORY: detention resident. . She is former smoker. No drug or alcohol abuse. REVIEW OF SYSTEMS: She has fever plus sore throat, runny nose, and coughing. She has chronic shortness of breath and getting oxygen at nursing facility. No nausea. No vomiting. No diarrhea. Chronic leg edema. PHYSICAL EXAMINATION: VITAL SIGNS: Temperature 97.7, pulse 96, and blood pressure is 137/64. Pulse at the time of admission was 120. GENERAL APPEARANCE: She is morbidly obese. No acute distress. HEAD AND NECK: Getting oxygen via nasal cannula. HEART: Normal rate. LUNGS: Decreased sounds bilaterally. ABDOMEN: Obese and soft. EXTREMITIES: Edema of legs. NEUROLOGIC: She is awake, responsive, and alert. LABORATORY DATA: Sodium 145, potassium 3.6, chloride 103, bicarb 35, BUN 8, creatinine 0.8, and glucose 122. LFT within normal limits. Albumin is 2.2. WBC 7.2, hemoglobin 11.7, hematocrit 38.6, and platelet is 261,000. Chest x-ray, low lung volume with bronchovascular crowding. IMPRESSION: 1. Sepsis with fever and tachycardia. 2. COPD. 3. She had contact with COVID-19 cases. We will try to rule out COVID-19. 4. Morbid obesity. 5. Peripheral neuropathy. 6. Degenerative joint disease. 7. Multiple antibiotic allergies including penicillin, cefepime, and Levaquin. RECOMMENDATION: 1. We will start on Zithromax and hydroxychloroquine. 2. We will follow up COVID-19 test. At the end of my exam, I thank Dr. Mcgrath for involving me in the care of this patient. Chris Arroyo M.D. DR: ANDRA JOB#: [id number] CC: CASSANDRA
--- NOTE | 2019-10-12 19:26 | NUR ---
HAND-OFF: Report given to Kika APARICIO. Pt remains stable.
--- NOTE | 2019-10-12 19:30 | NUR ---
NURSE NOTES: Received pt from MARKUS Magana. will continue plan of care.
[2019-10-12 20:00] VITALS: BP 128/72
--- NOTE | 2019-10-12 20:00 | NUR ---
NURSE NOTES: pt is observed resting in bed, AO X4. no s/sx of pain noted at this time. pt is on 2 L O2 via NC. tolerating well, saturation: 97%. no s/sx of respiratory distress noted. cardiac catheterization technologist shows SR at this time, no acute cardiac distress noted. Purewick is patent and connected to suction, light smiley urine noted in canister. LFA 18 g IV site is patent and intact, asymptomatic. bed in lowest position and locked, padded siderails up X3, call light within reach. will continue to monitor.
[2019-10-12] MEDS: clonazePAM 0.5mg tab ORAL SCH (21:24)
--- NOTE | 2019-10-12 22:45 | NUR ---
NURSE NOTES: all due meds given. pt given sponge bath, tolerated fairly well. complained of discomfort when applying new Purewick. all needs attended to; bed in lowest position and locked, padded siderails X3, call light within reach. will continue to monitor.
[2019-10-13] VITALS (8 sets, daily range): BP systolic 131–156; BP diastolic 65–104
[2019-10-13] MEDS: HYDROcodone/Acetamin 10/325 tab ORAL PRN ×3 (00:25→20:54)
[2019-10-13] MEDS: Promethazine/Codeine 5ml UD ORAL PRN ×3 (02:13→17:58)
--- NOTE | 2019-10-13 06:06 | NUR ---
NURSE NOTES: left message for Dr. Keiry Arroyo regarding pt's COVID-19 lab results. awaiting call back.
[2019-10-13] MEDS: Lyrica 75mg cap ORAL SCH ×3 (07:05→22:35)
--- NOTE | 2019-10-13 07:40 | NUR ---
NURSE NOTES: Received report from MARKUS Anand. The patient is resting on the bed without acute distress or shortness of breath. The patient has fever upto 102F upon initial assessment. The patient is on 2L NC, and oxygen saturation within normal range. The patient's bed in the lowest position, call light in reach, and fall and aspiration precaution reinforced. IV site on L FA 18G intact and patent. Per MARKUS Anand, the patient tested positive for COVID-19, and Cruz Lanier was notified. Will continue plan of care.
--- NOTE | 2019-10-13 07:43 | NUR ---
HAND-OFF: Report given to MARKUS Villasenor. endorsed plan of care.
--- NOTE | 2019-10-13 08:30 | NUR ---
NURSE NOTES: The patient is stable without acute distress or shortness of breath. Tylenol administered for fever. Dr. Mcgrath at the bedside assessed the patient. Informed Dr. Mcgrath that the patient has not done lab since 10/10/2019. Per Dr. Mcgrath, he will order lab later today. Will continue plan of care.
[2019-10-13] MEDS: Heparin 5000 units/ml inj SUBQ SCH ×2 (08:41→20:55)
[2019-10-13] MEDS: Aspirin Baby 81mg ORAL SCH (08:42)
[2019-10-13] MEDS: DULoxetine 30mg cap ORAL SCH (08:42)
[2019-10-13] MEDS: Carvedilol 6.25mg Tab ORAL SCH ×2 (08:42→20:54)
[2019-10-13] MEDS: Docusate 250mg cap ORAL SCH ×2 (08:42→17:40)
[2019-10-13] MEDS: Sensipar 30mg Tab ORAL SCH (08:43)
[2019-10-13] MEDS: Lacosamide 50mg tablet ORAL SCH ×2 (08:44→20:54)
--- NOTE | 2019-10-13 09:30 | NUR ---
NURSE NOTES: Dr. Serna at the bedside assessed the patient. Notified Dr. Mcgrath regarding abnormal lab, positive COVID-19 result, and ongoing fever. Per Dr. Serna, continue current management and no new order. The patient is stable without acute distress or shortness of breath. Will continue plan of care.
--- NOTE | 2019-10-13 11:00 | NUR ---
NURSE NOTES: The patient is stable without acute distress or shortness of breath. Will continue plan of care.
--- NOTE | 2019-10-13 11:04 | Infectious Diseases Prog Note ---
Assessment/Plan Assessment/Plan antibiotics : hydroxychloroquin, azithromycin 3.29.20 - A 1. covid 19 pneumonia 2. COPD 3. asthma 4. CVA 5. seizures P 1. continue hydroxychloroquin, azithromycin 2 more days 2. will follow up clinically 3. continue isolation Subjective Constitutional: Denies: fever, chills Respiratory: Reports: productive cough; Denies: shortness of breath Gastrointestinal/Abdominal: Denies: nausea, vomiting, diarrhea Musculoskeletal: Denies: pain Allergies: Coded Allergies: CEFEPIME (Unverified Allergy, Unknown, 11/03/17) LEVOFLOXACIN (Unverified Allergy, Unknown, 11/03/17) PENICILLINS (Unverified Allergy, Unknown, 11/03/17) Objective Vital Signs Last 24 Hour Vital Signs Date Time Temp Pulse Resp B/P (MAP) Pulse Ox O2 Delivery O2 Flow Rate FiO2 10/13/19 09:15 99.9 10/13/19 08:42 94 152/104 10/13/19 08:00 102.0 94 22 152/104 (120) 100 10/13/19 04:00 Nasal Cannula 2.0 10/13/19 04:00 102.0 96 22 131/86 (101) 100 10/13/19 04:00 91 10/13/19 04:00 2.0 10/13/19 00:00 98.8 89 22 144/77 (99) 100 10/13/19 00:00 Nasal Cannula 2.0 10/13/19 00:00 94 10/12/19 21:26 92 128/72 10/12/19 20:00 94 10/12/19 20:00 Nasal Cannula 2.0 10/12/19 20:00 99.1 92 24 128/72 (90) 97 10/12/19 20:00 97 Nasal Cannula 2.0 28 10/12/19 20:00 2.0 10/12/19 16:00 97.9 89 21 112/76 (88) 96 10/12/19 16:00 Nasal Cannula 2.0 10/12/19 16:00 88 10/12/19 16:00 2.0 10/12/19 12:00 Nasal Cannula 2.0 10/12/19 12:00 2.0 10/12/19 12:00 99.0 95 22 154/84 (107) 96 10/12/19 11:37 92 Height (Feet): 5 Height (Inches): 5.00 Weight (Pounds): 405 Microbiology Date/Time Source Procedure Growth Status 10/10/19 16:15 Blood Blood Culture - Preliminary NO GROWTH AFTER 48 HOURS Resulted 10/10/19 16:00 Blood Blood Culture - Preliminary NO GROWTH AFTER 48 HOURS Resulted 10/10/19 17:00 Nasopharynx Coronavirus COVID-19 PCR (ABDIAZIZ) - Final Complete 10/10/19 16:15 Nasal Nares - Final Complete 10/10/19 16:15 Nasal Nares - Final Complete 10/10/19 16:00 Nasal Nares MRSA Culture - Final NO METHICILLIN RESISTANT STAPH AUREUS... Complete 10/10/19 16:00 Rectum - Final NO CARBAPENEM-RESISTANT ENTEROBACTERI... 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 Complete Current Medications Medications (Trade) Dose Ordered Sig/Saira Route PRN Reason Start Time Stop Time Status Last Admin Dose Admin Acetaminophen (Tylenol) 650 mg Q6H PRN ORAL Mild Pain/Temp > 100.5 10/10/19 23:30 11/09/19 23:29 10/13/19 08:45 Acetaminophen/ Hydrocodone Bitart ([place] 10/325) 1 tab Q4H PRN ORAL For Pain 10/11/19 06:45 10/18/19 06:44 10/13/19 00:25 Albuterol/ Ipratropium (Albuterol/ Ipratropium) 3 ml Q6H PRN HHN Shortness of Breath 10/10/19 23:30 10/15/19 23:29 Aspirin (ASA) 81 mg DAILY ORAL 10/11/19 09:00 11/25/19 08:59 10/13/19 08:42 Atorvastatin Calcium (Lipitor) 10 mg BEDTIME ORAL 10/11/19 21:00 01/09/20 20:59 10/12/19 21:24 Azithromycin (Zithromax) 250 mg Q24H ORAL 10/12/19 18:00 10/15/19 18:01 10/12/19 18:22 Carvedilol (Coreg) 6.25 mg EVERY 12 HOURS ORAL 10/11/19 09:00 11/10/19 08:59 10/13/19 08:42 Cinacalcet (Sensipar) 30 mg DAILY ORAL 10/11/19 09:00 01/09/20 08:59 10/13/19 08:43 Clonazepam (KlonoPIN) 0.5 mg QHS ORAL 10/11/19 21:00 10/18/19 20:59 10/12/19 21:24 Docusate Sodium (Colace) 250 mg TWICE A DAY ORAL 10/11/19 09:00 11/10/19 08:59 10/13/19 08:42 Duloxetine HCl (Cymbalta) 60 mg DAILY ORAL 10/11/19 09:00 01/09/20 08:59 10/13/19 08:42 Ferrous Sulfate (Feosol) 325 mg TID ORAL 10/11/19 09:00 01/09/20 08:59 10/13/19 08:42 Folic Acid (Folate) 1 mg DAILY ORAL 10/11/19 09:00 11/10/19 08:59 10/13/19 08:42 Furosemide (Lasix) 40 mg BID ORAL 10/11/19 09:00 11/10/19 08:59 10/13/19 08:43 Guaifenesin (Robitussin) 100 mg Q4H PRN ORAL cough 10/10/19 23:30 01/08/20 23:29 10/11/19 20:32 Heparin Sodium (Porcine) (Heparin 5000 units/ml) 5,000 units EVERY 12 HOURS SUBQ 10/11/19 09:00 11/25/19 08:59 10/13/19 08:41 Hydroxychloroquine Sulfate (Plaquenil) 200 mg BID ORAL 10/12/19 18:00 10/16/19 09:01 10/13/19 08:43 Lacosamide (Vimpat) 100 mg Q12HR ORAL 10/11/19 09:00 01/09/20 08:59 10/13/19 08:44 Lidocaine (Lidoderm 5% PATCH) 3 patch DAILY TDERMAL 10/11/19 09:00 01/09/20 08:59 10/13/19 08:44 Magnesium Hydroxide (Mom) 30 ml DAILY PRN ORAL Constipation 10/10/19 23:30 11/09/19 23:29 10/12/19 18:23 Pantoprazole (Protonix) 40 mg EVERY 12 HOURS ORAL 10/11/19 09:00 11/10/19 08:59 10/13/19 08:43 Potassium Chloride (K-Dur) 20 meq DAILY ORAL 10/11/19 09:00 01/09/20 08:59 10/13/19 08:43 Pregabalin (Lyrica) 150 mg Q8HR ORAL 10/11/19 06:00 11/10/19 05:59 10/13/19 07:05 Promethazine HCl/ Codeine (Phenergan with Codeine) 5 ml Q4H PRN ORAL For Cough 10/10/19 23:30 11/09/19 23:29 10/13/19 10:06 Huma Serna MD Oct 13, 2019 11:04
--- NOTE | 2019-10-13 12:25 | NUR ---
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 No new order yet. Will continue plan of care.
--- NOTE | 2019-10-13 14:58 | General Progress Note ---
Assessment/Plan Problem List: (1) COPD with asthma ICD Codes: J44.9 - Chronic obstructive pulmonary disease, unspecified SNOMED: 85431149173646416 (2) Seizure ICD Codes: R56.9 - Unspecified convulsions SNOMED: 94248748 (3) CVA (cerebral vascular accident) ICD Codes: I63.9 - Cerebral infarction, unspecified SNOMED: 907076973 (4) Functional quadriplegia ICD Codes: R53.2 - Functional quadriplegia SNOMED: 635199025478640 (5) COVID-19 ICD Codes: U07.1 - COVID-19 SNOMED: 831007075 Status: stable Assessment/Plan: Continue current treatment. Supplemental oxygen and breathing treatments as needed. Hydroxychloroquine and azithromycin per ID recommendations for coronavirus disease. Added vitamin C. Encourage fluids. We will try to keep on the dry side. DVT and stress ulcer prophylaxis. Avoid opiate narcotics. Plan of care was discussed with patient's family and the patient. They are in agreement with plan of care. Subjective ROS Limited/Unobtainable: No Constitutional: Reports: malaise, weakness HEENT: Reports: no symptoms Cardiovascular: Reports: no symptoms Respiratory: Reports: cough, shortness of breath Gastrointestinal/Abdominal: Reports: no symptoms Genitourinary: Reports: no symptoms Neurologic/Psychiatric: Reports: anxiety, depressed Endocrine: Reports: no symptoms Hematologic/Lymphatic: Reports: anemia Allergies: Coded Allergies: CEFEPIME (Unverified Allergy, Unknown, 11/03/17) LEVOFLOXACIN (Unverified Allergy, Unknown, 11/03/17) PENICILLINS (Unverified Allergy, Unknown, 11/03/17) All Systems: reviewed and negative except above Subjective No overnight events. Patient continues to have mild shortness of breath. With an episodes of wheezing. Her coronavirus test returned positive. She is on hydroxychloroquine and azithromycin. Tolerating these medications well. Continues to have chronic pain in the knee. She is asking for more soup and hot tea Objective Last 24 Hour Vital Signs Date Time Temp Pulse Resp B/P (MAP) Pulse Ox O2 Delivery O2 Flow Rate FiO2 10/13/19 12:00 83 10/13/19 12:00 2.0 10/13/19 12:00 98.2 79 20 142/65 (90) 97 10/13/19 12:00 Nasal Cannula 2.0 10/13/19 09:15 99.9 10/13/19 08:42 94 152/104 10/13/19 08:00 98 10/13/19 08:00 Nasal Cannula 2.0 10/13/19 08:00 2.0 10/13/19 08:00 102.0 94 22 152/104 (120) 100 10/13/19 04:00 Nasal Cannula 2.0 10/13/19 04:00 102.0 96 22 131/86 (101) 100 10/13/19 04:00 91 10/13/19 04:00 2.0 10/13/19 00:00 98.8 89 22 144/77 (99) 100 10/13/19 00:00 Nasal Cannula 2.0 10/13/19 00:00 94 10/12/19 21:26 92 128/72 10/12/19 20:00 94 10/12/19 20:00 Nasal Cannula 2.0 10/12/19 20:00 99.1 92 24 128/72 (90) 97 10/12/19 20:00 97 Nasal Cannula 2.0 28 10/12/19 20:00 2.0 10/12/19 16:00 97.9 89 21 112/76 (88) 96 10/12/19 16:00 Nasal Cannula 2.0 10/12/19 16:00 88 10/12/19 16:00 2.0 Intake and Output 10/12/19 10/13/19 19:00 07:00 Intake Total 700 ml 600 ml Balance 700 ml 600 ml Intake Oral 700 ml 600 ml # Voids 5 3 Height (Feet): 5 Height (Inches): 5.00 Weight (Pounds): 405 General Appearance: WD/WN, alert Neck: supple Cardiovascular: normal rate Respiratory/Chest: chest wall non-tender, lungs clear, normal breath sounds, no respiratory distress Abdomen: normal bowel sounds, non tender, soft, no organomegaly Edema: no edema noted Arm (L), no edema noted Arm (R), no edema noted Leg (L), no edema noted Leg (R), no edema noted Pedal (L), no edema noted Pedal (R), no edema noted Generalized Kenroy Mcgrath MD Oct 13, 2019 14:58
[2019-10-13] MEDS: Ascorbic Acid 500mg tab ORAL SCH (15:48)
--- NOTE | 2019-10-13 16:00 | NUR ---
NURSE NOTES: The patient is stable without acute distress or shortness of breath. Body temperature within normal range. Will continue plan of care.
[2019-10-13] MEDS: Azithromycin 250mg tab ORAL SCH (17:40)
--- NOTE | 2019-10-13 18:00 | NUR ---
NURSE NOTES: Dr. Mcgrath ordered rectal tube and c.diff collection. Inserted per order. Will continue plan of care.
--- NOTE | 2019-10-13 19:30 | NUR ---
HAND-OFF: Report given to MARKUS Sanderson. The patient is resting on the bed without acute distress or shortness of breath. The patient's bed in the lowest position, call light in reach, and fall, aspiration, and seizure precaution reinforced. IV site intact and patent. The patient is on 2L NC, and oxygen saturation within normal range. The patient is on purewig and rectal tube intact and patent. The patient's vital signs stable and no fever noted. Endorsed plan of care.
--- NOTE | 2019-10-13 19:33 | NUR ---
NURSE NOTES: Received report from Cheri Villasenor, pt. in bed awake, pt. appears to be a/o x's 4- able to make needs known, no signs or symptoms of acute cardiac or respiratory distress noted, bed alarm on, side rails up x's3 and safety brakes engaged, pt. appears to be sating well on 2L NC- no distress noted, pt. has pure wick in place and set to suction, LFA 18G IV intact and patent- SL, HOB elevated, safety measures continued, will continue with plan of care.
[2019-10-13] MEDS: clonazePAM 0.5mg tab ORAL SCH (20:53)
[2019-10-14] VITALS: BP 135/74
[2019-10-14] MEDS: Promethazine/Codeine 5ml UD ORAL PRN ×4 (00:57→21:17)
[2019-10-14 04:00] VITALS: BP 139/79
[2019-10-14] MEDS: Lyrica 75mg cap ORAL SCH ×3 (05:43→21:35)
--- NOTE | 2019-10-14 05:47 | NUR ---
NURSE NOTES: pt. refusing Lyrica- witnessed another Rn- Kika- pt. denying pain and does not want medicine.
--- NOTE | 2019-10-14 06:57 | NUR ---
HAND-OFF: Report given to Alfred Rn, pt. remains stable and no signs of distress noted. Nurse aware to f/u on any abnormal am labs.
--- NOTE | 2019-10-14 07:13 | NUR ---
HAND-OFF: Report given to Cheri Burrows, pt. remains stable and no signs of distress noted. Nurse aware to f/u on any abnormal am labs. Assignment changed.
--- NOTE | 2019-10-14 08:26 | NUR ---
RD ASSESSMENT & RECOMMENDATIONS SEE CARE ACTIVITY FOR COMPLETE ASSESSMENT DAILY ESTIMATED NEEDS: Needs based on Obesity, cardiac/ 88kg abw 20-23 kcals/kg 0768-9368 total kcals 1-1.5 g protein/kg 88-132 g total protein Fluid per MD, on lasix NUTRITION DIAGNOSIS: * Morbid obesity R/T lifestyle factors, w/ quadriplegia, as evidenced by BMI>60 per guidelines, pt is 320% of [place] Body Weight. (CURRENT DIET: Low Na) PO DIET RECOMMENDATIONS: Cardiac (Low Na, Low Fat)/ texture as tolerated ADDITIONAL RECOMMENDATIONS: * Daily calibrated bed scale wt, pt on lasix * Monitor lytes closely w/ lasix, replete as needed * Rec A1C for eval
[2019-10-14 09:03] VITALS: BP 147/83
[2019-10-14] MEDS: Lacosamide 50mg tablet ORAL SCH ×2 (09:07→20:28)
[2019-10-14] MEDS: Sensipar 30mg Tab ORAL SCH (09:08)
[2019-10-14] MEDS: Aspirin Baby 81mg ORAL SCH (09:08)
[2019-10-14] MEDS: Ascorbic Acid 500mg tab ORAL SCH ×2 (09:11→18:33)
--- NOTE | 2019-10-14 09:11 | General Progress Note ---
Assessment/Plan Problem List: (1) COPD with asthma ICD Codes: J44.9 - Chronic obstructive pulmonary disease, unspecified SNOMED: 38393652148828792 (2) Seizure ICD Codes: R56.9 - Unspecified convulsions SNOMED: 79858162 (3) CVA (cerebral vascular accident) ICD Codes: I63.9 - Cerebral infarction, unspecified SNOMED: 541290027 (4) Functional quadriplegia ICD Codes: R53.2 - Functional quadriplegia SNOMED: 088099317610416 (5) COVID-19 ICD Codes: U07.1 - COVID-19 SNOMED: 786854835 Status: stable Assessment/Plan: Continue current treatment. Supplemental oxygen and breathing treatments as needed. Hydroxychloroquine and azithromycin per ID recommendations for coronavirus disease. vitamin C. Encourage fluids. We will try to keep on the dry side. DVT and stress ulcer prophylaxis. Avoid opiate narcotics. We will check routine labs today. Will need 2 negative coronavirus test before patient will be accepted back to the senior care facility.monitor for diarrhea. check cdiff Subjective ROS Limited/Unobtainable: No Constitutional: Reports: malaise HEENT: Reports: no symptoms Cardiovascular: Reports: no symptoms Respiratory: Reports: cough Gastrointestinal/Abdominal: Reports: nausea, poor appetite Genitourinary: Reports: no symptoms Neurologic/Psychiatric: Reports: weakness Endocrine: Reports: no symptoms Hematologic/Lymphatic: Reports: anemia Allergies: Coded Allergies: CEFEPIME (Unverified Allergy, Unknown, 11/03/17) LEVOFLOXACIN (Unverified Allergy, Unknown, 11/03/17) PENICILLINS (Unverified Allergy, Unknown, 11/03/17) All Systems: reviewed and negative except above Subjective There have been no overnight events. Patient feels somewhat improved. Her fevers have resolved. She has less cough. She complains of anorexia. She had some diarrhea yesterday but none so far today. ID recommendations appreciated. Patient has been compliant with medications including her antibiotics. Objective Last 24 Hour Vital Signs Date Time Temp Pulse Resp B/P (MAP) Pulse Ox O2 Delivery O2 Flow Rate FiO2 10/14/19 09:03 99.5 105 20 147/83 (104) 98 10/14/19 04:00 98.1 94 20 139/79 (99) 98 10/14/19 04:00 2.0 10/14/19 04:00 Nasal Cannula 2.0 10/14/19 03:32 98 10/14/19 00:00 Nasal Cannula 2.0 10/14/19 00:00 97.0 89 20 135/74 (94) 98 10/13/19 23:26 92 10/13/19 23:05 96.8 10/13/19 22:35 92 137/75 (95) 10/13/19 21:24 96.8 10/13/19 20:54 94 156/83 10/13/19 20:20 95 Nasal Cannula 2.0 28 10/13/19 20:00 2.0 10/13/19 20:00 Nasal Cannula 2.0 10/13/19 20:00 96.8 94 20 156/83 (107) 98 10/13/19 19:27 96 10/13/19 16:00 85 10/13/19 16:00 Nasal Cannula 2.0 10/13/19 16:00 2.0 10/13/19 16:00 98.7 80 20 142/70 (94) 97 10/13/19 15:50 98.8 83 20 143/75 (97) 95 10/13/19 12:00 83 10/13/19 12:00 2.0 10/13/19 12:00 98.2 79 20 142/65 (90) 97 10/13/19 12:00 Nasal Cannula 2.0 10/13/19 09:15 99.9 Intake and Output 10/13/19 10/14/19 19:00 07:00 Intake Total 1000 ml Output Total 1200 ml 350 ml Balance -200 ml -350 ml Intake Oral 1000 ml Output Urine Total 1200 ml 275 ml Stool Total 75 ml # Voids 1 # Bowel Movements 2 3 Height (Feet): 5 Height (Inches): 5.00 Weight (Pounds): 404 Objective General Appearance: WD/WN, alert Neck: supple Cardiovascular: normal rate Respiratory/Chest: chest wall non-tender, lungs clear, normal breath sounds, no respiratory distress Abdomen: normal bowel sounds, non tender, soft, no organomegaly Edema: no edema noted Arm (L), no edema noted Arm (R), no edema noted Leg (L), no edema noted Leg (R), no edema noted Pedal (L), no edema noted Pedal (R), no edema noted Generalized Kenroy Mcgrath MD Oct 14, 2019 09:11
[2019-10-14] MEDS: DULoxetine 30mg cap ORAL SCH (09:12)
[2019-10-14] MEDS: Carvedilol 6.25mg Tab ORAL SCH ×2 (09:13→20:27)
[2019-10-14] MEDS: Heparin 5000 units/ml inj SUBQ SCH ×2 (09:29→20:28)
--- NOTE | 2019-10-14 10:52 | Infectious Diseases Prog Note ---
Assessment/Plan Assessment/Plan antibiotics : hydroxychloroquin, azithromycin 3.29.20 - A 1. covid 19 pneumonia 2. COPD 3. asthma 4. CVA 5. seizures P 1. continue hydroxychloroquin, azithromycin 1 more day 2. will follow up clinically 3. continue isolation Subjective Constitutional: Denies: fever, chills Respiratory: Reports: dry cough; Denies: shortness of breath Gastrointestinal/Abdominal: Denies: nausea, vomiting, diarrhea Musculoskeletal: Denies: pain Allergies: Coded Allergies: CEFEPIME (Unverified Allergy, Unknown, 11/03/17) LEVOFLOXACIN (Unverified Allergy, Unknown, 11/03/17) PENICILLINS (Unverified Allergy, Unknown, 11/03/17) Objective Vital Signs Last 24 Hour Vital Signs Date Time Temp Pulse Resp B/P (MAP) Pulse Ox O2 Delivery O2 Flow Rate FiO2 10/14/19 09:13 103 147/83 10/14/19 09:03 99.5 105 20 147/83 (104) 98 10/14/19 04:00 98.1 94 20 139/79 (99) 98 10/14/19 04:00 2.0 10/14/19 04:00 Nasal Cannula 2.0 10/14/19 03:32 98 10/14/19 00:00 Nasal Cannula 2.0 10/14/19 00:00 97.0 89 20 135/74 (94) 98 10/13/19 23:26 92 10/13/19 23:05 96.8 10/13/19 22:35 92 137/75 (95) 10/13/19 21:24 96.8 10/13/19 20:54 94 156/83 10/13/19 20:20 95 Nasal Cannula 2.0 28 10/13/19 20:00 2.0 10/13/19 20:00 Nasal Cannula 2.0 10/13/19 20:00 96.8 94 20 156/83 (107) 98 10/13/19 19:27 96 10/13/19 16:00 85 10/13/19 16:00 Nasal Cannula 2.0 10/13/19 16:00 2.0 10/13/19 16:00 98.7 80 20 142/70 (94) 97 10/13/19 15:50 98.8 83 20 143/75 (97) 95 10/13/19 12:00 83 10/13/19 12:00 2.0 10/13/19 12:00 98.2 79 20 142/65 (90) 97 10/13/19 12:00 Nasal Cannula 2.0 Height (Feet): 5 Height (Inches): 5.00 Weight (Pounds): 404 Respiratory/Chest: lungs clear Cardiovascular: normal rate, regular rhythm, no gallop/murmur Abdomen: soft, non tender Extremities: no edema Current Medications Medications (Trade) Dose Ordered Sig/Saira Route PRN Reason Start Time Stop Time Status Last Admin Dose Admin Acetaminophen (Tylenol) 650 mg Q6H PRN ORAL Mild Pain/Temp > 100.5 10/10/19 23:30 11/09/19 23:29 10/13/19 08:45 Acetaminophen/ Hydrocodone Bitart ([place] 10/325) 1 tab Q4H PRN ORAL For Pain 10/11/19 06:45 10/18/19 06:44 10/13/19 20:54 Albuterol/ Ipratropium (Albuterol/ Ipratropium) 3 ml Q6H PRN HHN Shortness of Breath 10/10/19 23:30 10/15/19 23:29 Ascorbic Acid (Vitamin C) 500 mg TWICE A DAY ORAL 10/13/19 15:00 11/12/19 14:59 10/14/19 09:11 Aspirin (ASA) 81 mg DAILY ORAL 10/11/19 09:00 11/25/19 08:59 10/14/19 09:08 Atorvastatin Calcium (Lipitor) 10 mg BEDTIME ORAL 10/11/19 21:00 01/09/20 20:59 10/13/19 20:53 Azithromycin (Zithromax) 250 mg Q24H ORAL 10/12/19 18:00 10/15/19 18:01 10/13/19 17:40 Carvedilol (Coreg) 6.25 mg EVERY 12 HOURS ORAL 10/11/19 09:00 11/10/19 08:59 10/14/19 09:13 Cinacalcet (Sensipar) 30 mg DAILY ORAL 10/11/19 09:00 01/09/20 08:59 10/14/19 09:08 Clonazepam (KlonoPIN) 0.5 mg QHS ORAL 10/11/19 21:00 10/18/19 20:59 10/13/19 20:53 Duloxetine HCl (Cymbalta) 60 mg DAILY ORAL 10/15/19 09:00 01/09/20 08:59 Ferrous Sulfate (Feosol) 325 mg TID ORAL 10/11/19 09:00 01/09/20 08:59 10/14/19 09:09 Folic Acid (Folate) 1 mg DAILY ORAL 10/11/19 09:00 11/10/19 08:59 10/14/19 09:09 Furosemide (Lasix) 40 mg BID ORAL 10/11/19 09:00 11/10/19 08:59 10/14/19 09:07 Guaifenesin (Robitussin) 100 mg Q4H PRN ORAL cough 10/10/19 23:30 01/08/20 23:29 10/11/19 20:32 Heparin Sodium (Porcine) (Heparin 5000 units/ml) 5,000 units EVERY 12 HOURS SUBQ 10/11/19 09:00 11/25/19 08:59 10/14/19 09:29 Hydroxychloroquine Sulfate (Plaquenil) 200 mg BID ORAL 10/12/19 18:00 10/16/19 09:01 10/14/19 09:14 Lacosamide (Vimpat) 100 mg Q12HR ORAL 10/11/19 09:00 01/09/20 08:59 10/14/19 09:07 Lidocaine (Lidoderm 5% PATCH) 3 patch DAILY TDERMAL 10/11/19 09:00 01/09/20 08:59 10/14/19 09:14 Magnesium Hydroxide (Mom) 30 ml DAILY PRN ORAL Constipation 10/10/19 23:30 11/09/19 23:29 10/12/19 18:23 Pantoprazole (Protonix) 40 mg EVERY 12 HOURS ORAL 10/11/19 09:00 11/10/19 08:59 10/14/19 09:11 Potassium Chloride (K-Dur) 20 meq DAILY ORAL 10/11/19 09:00 01/09/20 08:59 10/14/19 09:11 Pregabalin (Lyrica) 150 mg Q8HR ORAL 10/11/19 06:00 11/10/19 05:59 10/13/19 22:35 Promethazine HCl/ Codeine (Phenergan with Codeine) 5 ml Q4H PRN ORAL For Cough 10/10/19 23:30 11/09/19 23:29 10/14/19 09:34 Huma Serna MD Oct 14, 2019 10:52
[2019-10-14 12:08] VITALS: BP 138/80
[2019-10-14] MEDS: HYDROcodone/Acetamin 10/325 tab ORAL PRN ×2 (12:50→20:27)
[2019-10-14 13:27] LABS: BASOPHILS % (AUTO) 1.1 % (0.0-2.0); EOSINOPHILS % (AUTO) 0.3 % (0.0-3.0); HEMOGLOBIN 12.9 G/DL (12.0-16.0); LYMPHOCYTES % (AUTO) 37.3 % (20.0-45.0); MEAN CORPUSCULAR VOLUME 90 FL (80-99); NEUTROPHILS % (AUTO) 51.3 % (45.0-75.0); PLATELET COUNT 180 K/UL (150-450); RED BLOOD COUNT 4.54 M/UL (4.20-5.40); RED CELL DISTRIBUTION WIDTH 15.8 % (11.6-14.8)
[2019-10-14 13:41] LABS: ALANINE AMINOTRANSFERASE 43 U/L (12-78); ALBUMIN 2.6 G/DL (3.4-5.0); ALBUMIN/GLOBULIN RATIO 0.6 (1.0-2.7); ALKALINE PHOSPHATASE 64 U/L (46-116); ANION GAP 10 mmol/L (5-15); ASPARTATE AMINO TRANSFERASE 64 U/L (15-37); BILIRUBIN,TOTAL 0.5 MG/DL (0.2-1.0); BLOOD UREA NITROGEN 7 mg/dL (7-18); CALCIUM 8.2 MG/DL (8.5-10.1); CARBON DIOXIDE 30 MMOL/L (21-32); CHLORIDE 101 MMOL/L (98-107); CREATININE 0.7 MG/DL (0.55-1.30); POTASSIUM 4.9 MMOL/L (3.5-5.1); SODIUM 141 MMOL/L (136-145)
--- NOTE | 2019-10-14 14:29 | NUR ---
[employer] SI: RULE OUT COVID 19 T. 99.5 HR 105 RR 20 B/P 147/83 2L NC O2 SAT @ 98% AST 64 IS: ZITHROMAX PO LASIX PO PLANQUEL PO HEPARIN SUBC DROPLET ISOLATION STEP DOWN STATUS
[2019-10-14 16:00] VITALS: BP 143/78
--- NOTE | 2019-10-14 16:20 | NUR ---
Patient resting in bed, no s/s of acute distress noted. Patient tolerating meds well. 2nd dose of PRN Phenergan given to patient. RT called to give breathing treatment with inhaler
[2019-10-14] MEDS: Azithromycin 250mg tab ORAL SCH (18:31)
--- NOTE | 2019-10-14 18:48 | NUR ---
NURSE NOTES: Patient resting in bed, no s/s of acute distress. Call light within reach, dinner at bedside. Patient tolerating medications well.
--- NOTE | 2019-10-14 19:10 | NUR ---
NURSE NOTES: Received report from Cheri Burrows, pt. in bed awake, pt. appears to be a/o x's 4- able to make needs known, no signs or symptoms of acute cardiac or respiratory distress noted, bed alarm on, side rails up x's3 and safety brakes engaged, pt. appears to be sating well on 2L NC- no distress noted, chest noted rising up and down- even and unlabored, pt. has pure wick in place and set to suction, LFA 18G IV intact and patent- SL, HOB elevated, safety measures continued, will continue with plan of care.
--- NOTE | 2019-10-14 19:59 | Consultation ---
DATE OF CONSULTATION: 10/14/2019 PULMONARY CONSULTATION REASON FOR ADMISSION: Pneumonia, possible COVID. HISTORY OF PRESENT ILLNESS: This is a 69-year-old female who is a penitentiary patient. The patient with history of asthma and hypertension. The patient with prior history of breast cancer. The patient was transferred with fever and shortness of breath. There was concern for possible COVID infection. The patient apparently tested positive. The patient noted to have fever in the emergency room as well as wheezing. The patient is now admitted for further care and management. I was asked to evaluate and recommend further. The patient has been in the hospital for 2 to 3 days and has been in isolation. Infectious Disease has been following. PAST MEDICAL HISTORY: Notable for stroke, obesity, asthma, hypertension. MEDICATIONS: Reviewed. ALLERGIES: Reviewed. PAST SURGICAL HISTORY: Mastectomy. FAMILY HISTORY: Noncontributory. SOCIAL HISTORY: Nonsmoker, nondrinker. The patient is a penitentiary patient. REVIEW OF SYSTEMS: Difficult to obtain. PHYSICAL EXAMINATION: GENERAL: A well-developed female, appears older than stated age. VITAL SIGNS: T-max 99.5, heart rate 103, blood pressure 157/83, pulse rate 98. HEENT: Negative. NECK: Supple. No adenopathy. LUNGS: Scattered wheezes, moderate air entry, some scattered rhonchi. CARDIAC: S1, S2. Slightly tachycardic without murmurs, rubs, or gallops. ABDOMEN: Soft, nontender, nondistended. EXTREMITIES: No cyanosis or clubbing. NEUROLOGICAL: Diffuse weakness overall. LABORATORY DATA: Chest x-ray with hypoventilatory changes. CBC essentially normal with noted leukopenia. Chemistries noted and reviewed. Bicarbonate 35. Albumin 3.2. IMPRESSION: Pulmonary infection, asthma, wheezing, history of VRE, COVID positive, stroke. RECOMMENDATIONS: 1. Supportive care. 2. Isolation for now. 3. Respiratory care. 4. Hydroxychloroquine and azithromycin per Infectious Disease. 5. Vitamin C high dose. 6. Monitor for respiratory changes and monitor oxygenation. 7. DVT prophylaxis. 8. We will follow clinically and recommend further. Darrel Schuster M.D. DR: FAUZIA JOB#: [id number] CC: CASSANDRA
[2019-10-14 20:00] VITALS: BP 153/56
[2019-10-14] MEDS: clonazePAM 0.5mg tab ORAL SCH (20:28)
[2019-10-15] VITALS: BP 133/67
--- NOTE | 2019-10-15 00:14 | NUR ---
NURSE NOTES: per charge nurse Claudia pt. showing V- tach on monitor- reassessed pt. Vital signs taken and EKG done- showing Sinus Rhythem on monitor- will continue to monitor pt. and with plan of care- pt. stating she is fine and would like to continue sleeping- remains A/O x's4- will continue to monitor and with plan of care.
--- NOTE | 2019-10-15 02:59 | Progress Note ---
DATE: 10/14/2019 CARDIOLOGY CRITICAL CARE NOTE SUBJECTIVE: This is a 69-year-old female who is on day 3 of hydroxychloroquine treatment for COVID-19. She is on isolation. She has defervesced, but still has congestion and shortness of breath. OBJECTIVE: VITAL SIGNS: Blood pressure 153/56, pulse 101, respirations 20, afebrile, and oxygen saturation 2 liters 97%. LUNGS: Coarse breath sounds. Few rhonchi. CARDIAC: Regular rhythm and rate. Normal S1, S2. ABDOMEN: Soft. EXTREMITIES: No edema. LABORATORY DATA: QT interval less than 400 milliseconds. White count 4 and hemoglobin 12.9. Potassium 4.9, BUN 7, and creatinine 0.7. IMPRESSION: 1. COVID-19 pneumonia. 2. Bronchospastic lung disease. 3. History of breast cancer. 4. Cerebrovascular disease. 5. Hypertensive heart disease. 6. Sinus tachycardia. PLAN: 1. Antimicrobials per Infectious Disease reservoir engineering consultant which includes hydroxychloroquine and azithromycin at this time. 2. Vitamin C supplementation. 3. Consider addition of zinc supplementation. 4. Monitor cardiac monitoring and continued assessment of QT interval on this regimen. Carlos Eduardo Andino M.D. DR: MAYITO JOB#: [id number] CC:
[2019-10-15] MEDS: Promethazine/Codeine 5ml UD ORAL PRN ×3 (03:19→22:45)
[2019-10-15 04:00] VITALS: BP 146/65
[2019-10-15] MEDS: Lyrica 75mg cap ORAL SCH ×3 (05:00→21:11)
--- NOTE | 2019-10-15 06:53 | NUR ---
HAND-OFF: Report given to Kush Rn, pt. remains stable and no signs of distress noted. Nurse aware to f/u on any abnormal am labs.
--- NOTE | 2019-10-15 07:09 | NUR ---
NURSE NOTES: Received report from MARKUS Sanderson. Patient is resting in bed, in stable condition. No s/sx of SOB, breathing is even and unlabored. Denies any presence of pain or discomfort at this time. Patient is positive COVID-19, will observe strict droplet and isolation precautions. Bed is in lowest position, brakes engaged. Call light is kept within easy reach. Will continue to monitor patient.
[2019-10-15 07:56] VITALS: BP 122/66
[2019-10-15] MEDS: Heparin 5000 units/ml inj SUBQ SCH ×2 (08:12→21:02)
[2019-10-15] MEDS: Carvedilol 6.25mg Tab ORAL SCH ×2 (08:13→21:02)
[2019-10-15] MEDS: Sensipar 30mg Tab ORAL SCH (08:13)
[2019-10-15] MEDS: Aspirin Baby 81mg ORAL SCH (08:14)
[2019-10-15] MEDS: Lacosamide 50mg tablet ORAL SCH ×2 (08:14→21:00)
[2019-10-15] MEDS: Ascorbic Acid 500mg tab ORAL SCH ×2 (08:15→17:28)
--- NOTE | 2019-10-15 08:30 | NUR ---
NURSE NOTES: Dr. Mcgrath seen and examined patient at bedside. Dr. Mcgrath at nurse station made aware of abnormal 5 lead EKG and Sinus Rhythm EKG. Dr. Mcgrath acknowledged, stated will look into patient's electrolytes labs and gave no new orders at this time. Will continue to monitor patient.
--- NOTE | 2019-10-15 08:48 | General Progress Note ---
Assessment/Plan Problem List: (1) COPD with asthma ICD Codes: J44.9 - Chronic obstructive pulmonary disease, unspecified SNOMED: 92651804547262206 (2) Seizure ICD Codes: R56.9 - Unspecified convulsions SNOMED: 99161538 (3) CVA (cerebral vascular accident) ICD Codes: I63.9 - Cerebral infarction, unspecified SNOMED: 468906453 (4) Functional quadriplegia ICD Codes: R53.2 - Functional quadriplegia SNOMED: 819388207008364 (5) COVID-19 ICD Codes: U07.1 - COVID-19 SNOMED: 397115667 Status: stable Assessment/Plan: Continue current treatment. Supplemental oxygen and breathing treatments as needed. Hydroxychloroquine and azithromycin per ID recommendations for coronavirus disease. vitamin C. Encourage fluids. We will try to keep on the dry side. DVT and stress ulcer prophylaxis. Avoid opiate narcotics. monitor labs Will need 2 negative coronavirus test before patient will be accepted back to the long-term facility.monitor for diarrhea. cough rx adjusted Subjective ROS Limited/Unobtainable: No Constitutional: Reports: malaise, weakness HEENT: Reports: no symptoms Cardiovascular: Reports: no symptoms Respiratory: Reports: cough Gastrointestinal/Abdominal: Reports: no symptoms Genitourinary: Reports: no symptoms Neurologic/Psychiatric: Reports: no symptoms Endocrine: Reports: no symptoms Hematologic/Lymphatic: Reports: no symptoms Allergies: Coded Allergies: CEFEPIME (Unverified Allergy, Unknown, 11/03/17) LEVOFLOXACIN (Unverified Allergy, Unknown, 11/03/17) PENICILLINS (Unverified Allergy, Unknown, 11/03/17) All Systems: reviewed and negative except above Subjective There have been no overnight events. Patient feels somewhat improved. Her fevers have resolved. She continues to complain of cough. Patient denies any fevers chills or chest pain. Patient is currently on hydroxychloroquine and azithromycin. Otherwise no new complaints. Cardiology and infectious disease appreciated. Objective Last 24 Hour Vital Signs Date Time Temp Pulse Resp B/P (MAP) Pulse Ox O2 Delivery O2 Flow Rate FiO2 10/15/19 08:13 94 122/66 10/15/19 07:56 98.1 94 18 122/66 (84) 95 10/15/19 07:00 94 18 95 Nasal Cannula 2.0 28 10/15/19 07:00 95 Nasal Cannula 2.0 28 10/15/19 04:00 Nasal Cannula 2.0 10/15/19 04:00 2.0 10/15/19 04:00 98.0 94 18 146/65 (92) 98 10/15/19 03:34 93 10/15/19 00:00 98.6 92 20 133/67 (89) 97 10/15/19 00:00 Nasal Cannula 2.0 10/14/19 23:31 90 10/14/19 20:57 99.4 10/14/19 20:27 101 153/56 10/14/19 20:05 97 Nasal Cannula 2.0 28 10/14/19 20:05 84 18 99 Nasal Cannula 2.0 28 10/14/19 20:00 2.0 10/14/19 20:00 Nasal Cannula 2.0 10/14/19 20:00 98.9 101 20 153/56 (88) 97 10/14/19 19:23 107 10/14/19 18:17 80 18 99 Non-Rebreather 2.0 10/14/19 18:14 79 18 98 Nasal Cannula 2.0 10/14/19 16:00 Nasal Cannula 2.0 10/14/19 16:00 91 10/14/19 16:00 2.0 10/14/19 16:00 89 21 143/78 (99) 97 10/14/19 12:08 99.4 99 138/80 (99) 10/14/19 12:00 2.0 10/14/19 12:00 Nasal Cannula 2.0 10/14/19 11:30 86 10/14/19 09:13 103 147/83 10/14/19 09:03 99.5 105 20 147/83 (104) 98 Intake and Output 10/14/19 10/15/19 19:00 07:00 Intake Total 525 ml Output Total 2 ml Balance 525 ml -2 ml Intake Oral 525 ml Output Urine Total 2 ml # Voids 3 # Bowel Movements 3 3 Laboratory Tests 10/14/19 13:05: White Blood Count 4.0L, Red Blood Count 4.54, Hemoglobin 12.9, Hematocrit 41.0, Mean Corpuscular Volume 90, Mean Corpuscular Hemoglobin 28.5, Mean Corpuscular Hemoglobin Concent 31.5L, Red Cell Distribution Width 15.8H, Platelet Count 180 , Mean Platelet Volume 7.8, Neutrophils (%) (Auto) 51.3, Lymphocytes (%) (Auto) 37.3, Monocytes (%) (Auto) 10.0, Eosinophils (%) (Auto) 0.3, Basophils (%) (Auto ) 1.1, Sodium Level 141, Potassium Level 4.9, Chloride Level 101, Carbon Dioxide Level 30, Anion Gap 10, Blood Urea Nitrogen 7, Creatinine 0.7, Estimat Glomerular Filtration Rate > 60, Glucose Level 96, Calcium Level 8.2L, Total Bilirubin 0.5, Aspartate Amino Transf (AST/SGOT) 64H, Alanine Aminotransferase ( ALT/SGPT) 43, Alkaline Phosphatase 64, Total Protein 7.2, Albumin 2.6L, Globulin 4.6, Albumin/Globulin Ratio 0.6L Height (Feet): 5 Height (Inches): 5.00 Weight (Pounds): 404 Objective General Appearance: WD/WN, alert Neck: supple Cardiovascular: normal rate Respiratory/Chest: chest wall non-tender, lungs clear, normal breath sounds, no respiratory distress Abdomen: normal bowel sounds, non tender, soft, no organomegaly Edema: no edema noted Arm (L), no edema noted Arm (R), no edema noted Leg (L), no edema noted Leg (R), no edema noted Pedal (L), no edema noted Pedal (R), no edema noted Generalized Kenroy Mcgrath MD Oct 15, 2019 08:48
--- NOTE | 2019-10-15 09:01 | Pulmonology Progress Note ---
Assessment/Plan Assessment/Plan IMPRESSION: Pulmonary infection, asthma, wheezing, history of VRE, COVID positive, stroke. PLAN care as is isolation monitor for change ID follow up on meds as is DVT prophylaxis close follow up impression, plan, and exam edited and reviewed in detail care discussed with RN Subjective Allergies: Coded Allergies: CEFEPIME (Unverified Allergy, Unknown, 11/03/17) LEVOFLOXACIN (Unverified Allergy, Unknown, 11/03/17) PENICILLINS (Unverified Allergy, Unknown, 11/03/17) Subjective care noted overnight no distress on oxygen Objective Last 24 Hour Vital Signs Date Time Temp Pulse Resp B/P (MAP) Pulse Ox O2 Delivery O2 Flow Rate FiO2 10/15/19 08:13 94 122/66 10/15/19 07:56 98.1 94 18 122/66 (84) 95 10/15/19 07:00 94 18 95 Nasal Cannula 2.0 28 10/15/19 07:00 95 Nasal Cannula 2.0 28 10/15/19 04:00 Nasal Cannula 2.0 10/15/19 04:00 2.0 10/15/19 04:00 98.0 94 18 146/65 (92) 98 10/15/19 03:34 93 10/15/19 00:00 98.6 92 20 133/67 (89) 97 10/15/19 00:00 Nasal Cannula 2.0 10/14/19 23:31 90 10/14/19 20:57 99.4 10/14/19 20:27 101 153/56 10/14/19 20:05 97 Nasal Cannula 2.0 28 10/14/19 20:05 84 18 99 Nasal Cannula 2.0 28 10/14/19 20:00 2.0 10/14/19 20:00 Nasal Cannula 2.0 10/14/19 20:00 98.9 101 20 153/56 (88) 97 10/14/19 19:23 107 10/14/19 18:17 80 18 99 Non-Rebreather 2.0 10/14/19 18:14 79 18 98 Nasal Cannula 2.0 10/14/19 16:00 Nasal Cannula 2.0 10/14/19 16:00 91 10/14/19 16:00 2.0 10/14/19 16:00 89 21 143/78 (99) 97 10/14/19 12:08 99.4 99 138/80 (99) 10/14/19 12:00 2.0 10/14/19 12:00 Nasal Cannula 2.0 10/14/19 11:30 86 10/14/19 09:13 103 147/83 10/14/19 09:03 99.5 105 20 147/83 (104) 98 Intake and Output 10/14/19 10/15/19 19:00 07:00 Intake Total 525 ml Output Total 2 ml Balance 525 ml -2 ml Intake Oral 525 ml Output Urine Total 2 ml # Voids 3 # Bowel Movements 3 3 Objective WDWN NAD clear breath sounds bilaterally without rhonchi or wheeze [id number] without MRG NABS nontender no HSM no CCE nonfocal Laboratory Tests 10/14/19 13:05: White Blood Count 4.0L, Red Blood Count 4.54, Hemoglobin 12.9, Hematocrit 41.0, Mean Corpuscular Volume 90, Mean Corpuscular Hemoglobin 28.5, Mean Corpuscular Hemoglobin Concent 31.5L, Red Cell Distribution Width 15.8H, Platelet Count 180 , Mean Platelet Volume 7.8, Neutrophils (%) (Auto) 51.3, Lymphocytes (%) (Auto) 37.3, Monocytes (%) (Auto) 10.0, Eosinophils (%) (Auto) 0.3, Basophils (%) (Auto ) 1.1, Sodium Level 141, Potassium Level 4.9, Chloride Level 101, Carbon Dioxide Level 30, Anion Gap 10, Blood Urea Nitrogen 7, Creatinine 0.7, Estimat Glomerular Filtration Rate > 60, Glucose Level 96, Calcium Level 8.2L, Total Bilirubin 0.5, Aspartate Amino Transf (AST/SGOT) 64H, Alanine Aminotransferase ( ALT/SGPT) 43, Alkaline Phosphatase 64, Total Protein 7.2, Albumin 2.6L, Globulin 4.6, Albumin/Globulin Ratio 0.6L Current Medications Medications (Trade) Dose Ordered Sig/Saira Route PRN Reason Start Time Stop Time Status Last Admin Dose Admin Acetaminophen (Tylenol) 650 mg Q6H PRN ORAL Mild Pain/Temp > 100.5 10/10/19 23:30 11/09/19 23:29 10/13/19 08:45 Acetaminophen/ Hydrocodone Bitart ([place] 10/325) 1 tab Q4H PRN ORAL For Pain 10/11/19 06:45 10/18/19 06:44 10/14/19 20:27 Albuterol/ Ipratropium (Combivent Respimat) 1 puff Q6H PRN INH Shortness of Breath 10/14/19 15:15 11/13/19 15:14 10/14/19 18:15 Ascorbic Acid (Vitamin C) 500 mg TWICE A DAY ORAL 10/13/19 15:00 11/12/19 14:59 10/15/19 08:15 Aspirin (ASA) 81 mg DAILY ORAL 10/11/19 09:00 11/25/19 08:59 10/15/19 08:14 Atorvastatin Calcium (Lipitor) 10 mg BEDTIME ORAL 10/11/19 21:00 01/09/20 20:59 10/14/19 20:27 Azithromycin (Zithromax) 250 mg Q24H ORAL 10/12/19 18:00 10/15/19 18:01 10/14/19 18:31 Carvedilol (Coreg) 6.25 mg EVERY 12 HOURS ORAL 10/11/19 09:00 11/10/19 08:59 10/15/19 08:13 Cinacalcet (Sensipar) 30 mg DAILY ORAL 10/11/19 09:00 01/09/20 08:59 10/15/19 08:13 Clonazepam (KlonoPIN) 0.5 mg QHS ORAL 10/11/19 21:00 10/18/19 20:59 10/14/19 20:28 Duloxetine HCl (Cymbalta) 60 mg DAILY ORAL 10/15/19 09:00 01/09/20 08:59 10/15/19 08:14 Ferrous Sulfate (Feosol) 325 mg TID ORAL 10/11/19 09:00 01/09/20 08:59 10/15/19 08:14 Folic Acid (Folate) 1 mg DAILY ORAL 10/11/19 09:00 11/10/19 08:59 10/15/19 08:15 Furosemide (Lasix) 40 mg BID ORAL 10/11/19 09:00 11/10/19 08:59 10/15/19 08:15 Guaifenesin (Mucinex ER) 600 mg TWICE A DAY ORAL 10/15/19 09:00 01/13/20 08:59 Guaifenesin (Robitussin) 100 mg Q4H PRN ORAL cough 10/10/19 23:30 01/08/20 23:29 10/11/19 20:32 Heparin Sodium (Porcine) (Heparin 5000 units/ml) 5,000 units EVERY 12 HOURS SUBQ 10/11/19 09:00 11/25/19 08:59 10/15/19 08:12 Hydroxychloroquine Sulfate (Plaquenil) 200 mg BID ORAL 10/12/19 18:00 10/16/19 09:01 10/15/19 08:14 Lacosamide (Vimpat) 100 mg Q12HR ORAL 10/11/19 09:00 01/09/20 08:59 10/15/19 08:14 Lidocaine (Lidoderm 5% PATCH) 3 patch DAILY TDERMAL 10/11/19 09:00 01/09/20 08:59 10/15/19 08:13 Magnesium Hydroxide (Mom) 30 ml DAILY PRN ORAL Constipation 10/10/19 23:30 11/09/19 23:29 10/12/19 18:23 Pantoprazole (Protonix) 40 mg EVERY 12 HOURS ORAL 10/11/19 09:00 11/10/19 08:59 10/15/19 08:13 Potassium Chloride (K-Dur) 20 meq DAILY ORAL 10/11/19 09:00 01/09/20 08:59 10/15/19 08:14 Pregabalin (Lyrica) 150 mg Q8HR ORAL 10/11/19 06:00 11/10/19 05:59 10/13/19 22:35 Promethazine HCl/ Codeine (Phenergan with Codeine) 5 ml Q4H PRN ORAL For Cough 10/10/19 23:30 11/09/19 23:29 10/15/19 03:19 Darrel Schuster MD Oct 15, 2019 09:01
[2019-10-15] MEDS: guaiFENesin ER 600mg tab ORAL SCH ×2 (09:52→17:28)
[2019-10-15] MEDS: HYDROcodone/Acetamin 10/325 tab ORAL PRN ×3 (09:52→22:45)
--- NOTE | 2019-10-15 09:56 | Infectious Diseases Prog Note ---
Assessment/Plan Assessment/Plan A 1. COVID 19 pneumonia 2. COPD 3. asthma 4. CVA 5. seizures P 1. continue hydroxychloroquine, azithromycin 1 more day 2. will follow up clinically 3. continue isolation Subjective ROS Limited/Unobtainable: Yes Constitutional: Reports: anorexia; Denies: fever Respiratory: Reports: no symptoms Gastrointestinal/Abdominal: Reports: no symptoms Allergies: Coded Allergies: CEFEPIME (Unverified Allergy, Unknown, 11/03/17) LEVOFLOXACIN (Unverified Allergy, Unknown, 11/03/17) PENICILLINS (Unverified Allergy, Unknown, 11/03/17) Objective Vital Signs Last 24 Hour Vital Signs Date Time Temp Pulse Resp B/P (MAP) Pulse Ox O2 Delivery O2 Flow Rate FiO2 10/15/19 08:13 94 122/66 10/15/19 08:00 Nasal Cannula 2.0 10/15/19 08:00 2.0 10/15/19 07:56 98.1 94 18 122/66 (84) 95 10/15/19 07:00 94 18 95 Nasal Cannula 2.0 28 10/15/19 07:00 95 Nasal Cannula 2.0 28 10/15/19 04:00 Nasal Cannula 2.0 10/15/19 04:00 2.0 10/15/19 04:00 98.0 94 18 146/65 (92) 98 10/15/19 03:34 93 10/15/19 00:00 98.6 92 20 133/67 (89) 97 10/15/19 00:00 Nasal Cannula 2.0 10/14/19 23:31 90 10/14/19 20:57 99.4 10/14/19 20:27 101 153/56 10/14/19 20:05 97 Nasal Cannula 2.0 28 10/14/19 20:05 84 18 99 Nasal Cannula 2.0 28 10/14/19 20:00 2.0 10/14/19 20:00 Nasal Cannula 2.0 10/14/19 20:00 98.9 101 20 153/56 (88) 97 10/14/19 19:23 107 10/14/19 18:17 80 18 99 Non-Rebreather 2.0 10/14/19 18:14 79 18 98 Nasal Cannula 2.0 10/14/19 16:00 Nasal Cannula 2.0 10/14/19 16:00 91 10/14/19 16:00 2.0 10/14/19 16:00 89 21 143/78 (99) 97 10/14/19 12:08 99.4 99 138/80 (99) 10/14/19 12:00 2.0 10/14/19 12:00 Nasal Cannula 2.0 10/14/19 11:30 86 Height (Feet): 5 Height (Inches): 5.00 Weight (Pounds): 404 General Appearance: other - obese HEENT: mucous membranes moist Respiratory/Chest: lungs clear Cardiovascular: normal rate Abdomen: soft, non tender Extremities: other - trace edema Neurologic/Psychiatric: alert, responsive Laboratory Tests Test 10/14/19 13:05 White Blood Count 4.0 K/UL (4.8-10.8) L Red Blood Count 4.54 M/UL (4.20-5.40) Hemoglobin 12.9 G/DL (12.0-16.0) Hematocrit 41.0 % (37.0-47.0) Mean Corpuscular Volume 90 FL (80-99) Mean Corpuscular Hemoglobin 28.5 PG (27.0-31.0) Mean Corpuscular Hemoglobin Concent 31.5 G/DL (32.0-36.0) L Red Cell Distribution Width 15.8 % (11.6-14.8) H Platelet Count 180 K/UL (150-450) Mean Platelet Volume 7.8 FL (6.5-10.1) Neutrophils (%) (Auto) 51.3 % (45.0-75.0) Lymphocytes (%) (Auto) 37.3 % (20.0-45.0) Monocytes (%) (Auto) 10.0 % (1.0-10.0) Eosinophils (%) (Auto) 0.3 % (0.0-3.0) Basophils (%) (Auto) 1.1 % (0.0-2.0) Sodium Level 141 MMOL/L (136-145) Potassium Level 4.9 MMOL/L (3.5-5.1) Chloride Level 101 MMOL/L (98-107) Carbon Dioxide Level 30 MMOL/L (21-32) Anion Gap 10 mmol/L (5-15) Blood Urea Nitrogen 7 mg/dL (7-18) Creatinine 0.7 MG/DL (0.55-1.30) Estimat Glomerular Filtration Rate > 60 mL/min (>60) Glucose Level 96 MG/DL (74-106) Calcium Level 8.2 MG/DL (8.5-10.1) L Total Bilirubin 0.5 MG/DL (0.2-1.0) Aspartate Amino Transf (AST/SGOT) 64 U/L (15-37) H Alanine Aminotransferase (ALT/SGPT) 43 U/L (12-78) Alkaline Phosphatase 64 U/L (46-116) Total Protein 7.2 G/DL (6.4-8.2) Albumin 2.6 G/DL (3.4-5.0) L Globulin 4.6 g/dL Albumin/Globulin Ratio 0.6 (1.0-2.7) L Current Medications Medications (Trade) Dose Ordered Sig/Saira Route PRN Reason Start Time Stop Time Status Last Admin Dose Admin Acetaminophen (Tylenol) 650 mg Q6H PRN ORAL Mild Pain/Temp > 100.5 10/10/19 23:30 11/09/19 23:29 10/13/19 08:45 Acetaminophen/ Hydrocodone Bitart ([employer] 10/325) 1 tab Q4H PRN ORAL For Pain 10/11/19 06:45 10/18/19 06:44 10/15/19 09:52 Albuterol/ Ipratropium (Combivent Respimat) 1 puff Q6H PRN INH Shortness of Breath 10/14/19 15:15 11/13/19 15:14 10/14/19 18:15 Ascorbic Acid (Vitamin C) 500 mg TWICE A DAY ORAL 10/13/19 15:00 11/12/19 14:59 10/15/19 08:15 Aspirin (ASA) 81 mg DAILY ORAL 10/11/19 09:00 11/25/19 08:59 10/15/19 08:14 Atorvastatin Calcium (Lipitor) 10 mg BEDTIME ORAL 10/11/19 21:00 01/09/20 20:59 10/14/19 20:27 Azithromycin (Zithromax) 250 mg Q24H ORAL 10/12/19 18:00 10/15/19 18:01 10/14/19 18:31 Carvedilol (Coreg) 6.25 mg EVERY 12 HOURS ORAL 10/11/19 09:00 11/10/19 08:59 10/15/19 08:13 Cinacalcet (Sensipar) 30 mg DAILY ORAL 10/11/19 09:00 01/09/20 08:59 10/15/19 08:13 Clonazepam (KlonoPIN) 0.5 mg QHS ORAL 10/11/19 21:00 10/18/19 20:59 10/14/19 20:28 Duloxetine HCl (Cymbalta) 60 mg DAILY ORAL 10/15/19 09:00 01/09/20 08:59 10/15/19 08:14 Ferrous Sulfate (Feosol) 325 mg TID ORAL 10/11/19 09:00 01/09/20 08:59 10/15/19 08:14 Folic Acid (Folate) 1 mg DAILY ORAL 10/11/19 09:00 11/10/19 08:59 10/15/19 08:15 Furosemide (Lasix) 40 mg BID ORAL 10/11/19 09:00 11/10/19 08:59 10/15/19 08:15 Guaifenesin (Mucinex ER) 600 mg TWICE A DAY ORAL 10/15/19 09:00 01/13/20 08:59 10/15/19 09:52 Guaifenesin (Robitussin) 100 mg Q4H PRN ORAL cough 10/10/19 23:30 01/08/20 23:29 10/11/19 20:32 Heparin Sodium (Porcine) (Heparin 5000 units/ml) 5,000 units EVERY 12 HOURS SUBQ 10/11/19 09:00 11/25/19 08:59 10/15/19 08:12 Hydroxychloroquine Sulfate (Plaquenil) 200 mg BID ORAL 10/12/19 18:00 10/16/19 09:01 10/15/19 08:14 Lacosamide (Vimpat) 100 mg Q12HR ORAL 10/11/19 09:00 01/09/20 08:59 10/15/19 08:14 Lidocaine (Lidoderm 5% PATCH) 3 patch DAILY TDERMAL 10/11/19 09:00 01/09/20 08:59 10/15/19 08:13 Magnesium Hydroxide (Mom) 30 ml DAILY PRN ORAL Constipation 10/10/19 23:30 11/09/19 23:29 10/12/19 18:23 Pantoprazole (Protonix) 40 mg EVERY 12 HOURS ORAL 10/11/19 09:00 11/10/19 08:59 10/15/19 08:13 Potassium Chloride (K-Dur) 20 meq DAILY ORAL 10/11/19 09:00 01/09/20 08:59 10/15/19 08:14 Pregabalin (Lyrica) 150 mg Q8HR ORAL 10/11/19 06:00 11/10/19 05:59 10/13/19 22:35 Promethazine HCl/ Codeine (Phenergan with Codeine) 5 ml Q4H PRN ORAL For Cough 10/10/19 23:30 11/09/19 23:29 10/15/19 03:19 Chris Arroyo MD Oct 15, 2019 09:56
--- NOTE | 2019-10-15 10:45 | NUR ---
DISCHARGE PLANNING: SHIMON MOORE CONFIRMED WITH LOUISA AT [facility] THAT 2 SERIAL NEGATIVE RESULTS ARE NOT REQUIRED FOR ADMITTANCE TO THEIR FACILITY FOR THIS PARTICULAR PATIENT. COVID NEG RESULTS FAXED. CLINICALS FAXED IN [place]TICIPATION OF [place] TOMORROW. AWAITING BED ASSIGNMENT Addendum: 10/15/19 at 1540 by Minoo Scott NOTE ENTERED IN ERROR.
[2019-10-15 11:43] VITALS: BP 154/61
--- NOTE | 2019-10-15 14:04 | NUR ---
NURSE NOTES: Per patient's brother Rakan Mcduffie, patient's sister Janny Albert can get updates. Charge nurse made aware. Will continue to monitor patient. Addendum: 10/15/19 at 1455 by YUNG CAMPO RN NURSE NOTES: Janny Price, sister, tel: .
[2019-10-15 15:59] VITALS: BP 122/96
[2019-10-15] MEDS: Azithromycin 250mg tab ORAL SCH (17:28)
[2019-10-15] MEDS: Furosemide 40mg tab ORAL SCH (17:28)
--- NOTE | 2019-10-15 19:08 | NUR ---
HAND-OFF: Report given to MARKUS Sanderson.
--- NOTE | 2019-10-15 19:10 | NUR ---
NURSE NOTES: Received report from Kush Rn, pt. in bed awake, pt. appears to be a/o x's 4- able to make needs known, no signs or symptoms of acute cardiac or respiratory distress noted, bed alarm on, side rails up x's3 and safety brakes engaged, pt. appears to be sating well on 2L NC- no distress noted, chest noted rising up and down- even and unlabored, pt. has pure wick in place and set to suction, LFA 18G IV intact and patent- SL, HOB elevated, comfort measures provided, safety measures continued, will continue with plan of care.
[2019-10-15 20:00] VITALS: BP 143/57
[2019-10-15] MEDS: clonazePAM 0.5mg tab ORAL SCH (21:00)
--- NOTE | 2019-10-15 21:07 | NUR ---
NURSE NOTES: Acetaminophen PRN pulled for Primary nurse, MARKUS Sanderson.
[2019-10-16] VITALS: BP 146/63
--- NOTE | 2019-10-16 01:30 | Progress Note ---
DATE: 10/15/2019 NOTE: INCOMPLETE DICTATION CARDIOLOGY CRITICAL CARE NOTE SUBJECTIVE: The patient has defervesced. She still has cough and congestion, but is less short of breath. No chest pain. Monitored rhythm, sinus. No tachycardic episodes since yesterday. OBJECTIVE: LUNGS: Bilateral breath sounds. Few rhonchi. CARDIAC: Regular rhythm and rate. Normal S1, S2 with a fourth heart sound. ABDOMEN: Soft. EXTREMITIES: Trace edema. LABORATORY DATA: QT interval is not prolonged. IMPRESSION: COVID-19 infection. Carlos Eduardo Andino M.D. DR: JOSE JUAN JOB#: [id number] CC:
[2019-10-16 04:00] VITALS: BP 139/59
[2019-10-16] MEDS: Promethazine/Codeine 5ml UD ORAL PRN ×3 (04:06→20:09)
[2019-10-16] MEDS: HYDROcodone/Acetamin 10/325 tab ORAL PRN ×5 (04:06→23:46)
[2019-10-16] MEDS: Lyrica 75mg cap ORAL SCH ×3 (05:00→21:20)
--- NOTE | 2019-10-16 06:53 | NUR ---
HAND-OFF: Report given to Kush Rn, pt. remains stable and no signs of distress noted. Nurse aware to f/u on any abnormal am labs.
--- NOTE | 2019-10-16 07:03 | NUR ---
NURSE NOTES: Received report from MARKUS Sanderson. Patient is resting in bed, in stable condition. No s/sx of SOB, breathing is even and unlabored. On 2LNC, no coughing noted. Denies any presence of pain or pain or discomfort at this time. Bed is in lowest position, brakes engaged. Call light is kept within easy reach. Will continue to monitor patient.
--- NOTE | 2019-10-16 07:45 | General Progress Note ---
Assessment/Plan Problem List: (1) COPD with asthma ICD Codes: J44.9 - Chronic obstructive pulmonary disease, unspecified SNOMED: 73238971271437607 (2) Seizure ICD Codes: R56.9 - Unspecified convulsions SNOMED: 90801537 (3) CVA (cerebral vascular accident) ICD Codes: I63.9 - Cerebral infarction, unspecified SNOMED: 549988244 (4) Functional quadriplegia ICD Codes: R53.2 - Functional quadriplegia SNOMED: 332772220864808 (5) COVID-19 ICD Codes: U07.1 - COVID-19 SNOMED: 022257280 Status: stable Assessment/Plan: Continue current treatment. Supplemental oxygen and breathing treatments as needed. Hydroxychloroquine and azithromycin per ID recommendations for coronavirus disease. monitor ekg. vitamin C. Encourage fluids. keep on the dry side. DVT and stress ulcer prophylaxis. Avoid opiate narcotics. monitor labs Will need 2 negative coronavirus test before patient will be accepted back to the assisted facility.monitor for diarrhea. cough rx adjusted Subjective ROS Limited/Unobtainable: No Constitutional: Reports: malaise, weakness HEENT: Reports: no symptoms Cardiovascular: Reports: no symptoms Respiratory: Reports: cough, shortness of breath Gastrointestinal/Abdominal: Reports: no symptoms Genitourinary: Reports: no symptoms Neurologic/Psychiatric: Reports: no symptoms Endocrine: Reports: no symptoms Hematologic/Lymphatic: Reports: no symptoms Allergies: Coded Allergies: CEFEPIME (Unverified Allergy, Unknown, 11/03/17) LEVOFLOXACIN (Unverified Allergy, Unknown, 11/03/17) PENICILLINS (Unverified Allergy, Unknown, 11/03/17) All Systems: reviewed and negative except above Subjective states she feels better. remains on o2- chronically. no fevers or chills. pain controlled. no vomiting. Objective Last 24 Hour Vital Signs Date Time Temp Pulse Resp B/P (MAP) Pulse Ox O2 Delivery O2 Flow Rate FiO2 10/16/19 04:36 98.4 10/16/19 04:00 Nasal Cannula 2.0 10/16/19 04:00 2.0 10/16/19 04:00 98.4 90 18 139/59 (85) 96 10/16/19 03:39 87 10/16/19 00:00 2.0 10/16/19 00:00 98.9 90 18 146/63 (90) 97 10/16/19 00:00 89 10/16/19 00:00 Nasal Cannula 2.0 10/15/19 21:36 99.1 10/15/19 21:02 97 143/57 10/15/19 20:00 Nasal Cannula 2.0 10/15/19 20:00 2.0 10/15/19 20:00 100.6 97 18 143/57 (85) 96 10/15/19 19:44 101 10/15/19 19:00 97 18 96 Nasal Cannula 2.0 28 10/15/19 19:00 96 Nasal Cannula 2.0 28 10/15/19 16:00 92 10/15/19 16:00 2.0 10/15/19 16:00 Nasal Cannula 2.0 10/15/19 15:59 98.1 94 18 122/96 (105) 95 10/15/19 12:00 84 10/15/19 11:56 2.0 10/15/19 11:53 Nasal Cannula 2.0 10/15/19 11:43 98.1 94 18 154/61 (92) 95 10/15/19 08:13 94 122/66 10/15/19 08:00 Nasal Cannula 2.0 10/15/19 08:00 97 10/15/19 08:00 2.0 10/15/19 07:56 98.1 94 18 122/66 (84) 95 Intake and Output 10/15/19 10/16/19 19:00 07:00 Output Total 100 ml Balance -100 ml Output Urine Total 100 ml # Voids 2 2 # Bowel Movements 51 Height (Feet): 5 Height (Inches): 5.00 Weight (Pounds): 404 Objective General Appearance: WD/WN, alert Neck: supple Cardiovascular: normal rate Respiratory/Chest: chest wall non-tender, lungs clear, normal breath sounds, no respiratory distress Abdomen: normal bowel sounds, non tender, soft, no organomegaly Edema: no edema noted Arm (L), no edema noted Arm (R), no edema noted Leg (L), no edema noted Leg (R), no edema noted Pedal (L), no edema noted Pedal (R), no edema noted Generalized Kenroy Mcgrath MD Oct 16, 2019 07:45
[2019-10-16 08:00] VITALS: BP 130/50
[2019-10-16] MEDS: Heparin 5000 units/ml inj SUBQ SCH ×2 (08:15→20:04)
[2019-10-16] MEDS: Aspirin Baby 81mg ORAL SCH (08:16)
[2019-10-16] MEDS: Sensipar 30mg Tab ORAL SCH (08:16)
[2019-10-16] MEDS: Lacosamide 50mg tablet ORAL SCH ×2 (08:16→20:03)
[2019-10-16] MEDS: guaiFENesin ER 600mg tab ORAL SCH ×2 (08:16→17:22)
[2019-10-16] MEDS: Ascorbic Acid 500mg tab ORAL SCH ×2 (08:17→17:22)
[2019-10-16] MEDS: Furosemide 40mg tab ORAL SCH ×2 (08:17→17:22)
[2019-10-16] MEDS: Carvedilol 6.25mg Tab ORAL SCH ×2 (08:17→20:03)
--- NOTE | 2019-10-16 10:00 | NUR ---
NURSE NOTES: This nurse spoke with Dr. Serna, per MD informed this nurse that they spoke with Migdalia charge nurse and ordered repeat swab of COVID-19 swab since patient finished Plaquenil and Azithromax therapy. Noted.
--- NOTE | 2019-10-16 11:05 | Infectious Diseases Prog Note ---
Assessment/Plan Assessment/Plan antibiotics : none A 1. covid 19 pneumonia s/p rx 2. COPD 3. asthma 4. CVA 5. seizures P 1. continue off antibiotics 2. will follow up clinically 3. continue isolation 4. repeat surveillance COVID 19 test x 2, 24 hours apart Subjective Constitutional: Denies: fever, chills Respiratory: Reports: dry cough - decreased; Denies: shortness of breath Gastrointestinal/Abdominal: Denies: nausea, vomiting, diarrhea Musculoskeletal: Denies: pain Allergies: Coded Allergies: CEFEPIME (Unverified Allergy, Unknown, 11/03/17) LEVOFLOXACIN (Unverified Allergy, Unknown, 11/03/17) PENICILLINS (Unverified Allergy, Unknown, 11/03/17) Objective Vital Signs Last 24 Hour Vital Signs Date Time Temp Pulse Resp B/P (MAP) Pulse Ox O2 Delivery O2 Flow Rate FiO2 10/16/19 08:17 90 139/59 10/16/19 08:00 94 10/16/19 08:00 98.1 90 18 130/50 (76) 97 10/16/19 08:00 Nasal Cannula 2.0 10/16/19 08:00 2.0 10/16/19 04:36 98.4 10/16/19 04:00 Nasal Cannula 2.0 10/16/19 04:00 2.0 10/16/19 04:00 98.4 90 18 139/59 (85) 96 10/16/19 03:39 87 10/16/19 00:00 2.0 10/16/19 00:00 98.9 90 18 146/63 (90) 97 10/16/19 00:00 89 10/16/19 00:00 Nasal Cannula 2.0 10/15/19 21:36 99.1 10/15/19 21:02 97 143/57 10/15/19 20:00 Nasal Cannula 2.0 10/15/19 20:00 2.0 10/15/19 20:00 100.6 97 18 143/57 (85) 96 10/15/19 19:44 101 10/15/19 19:00 97 18 96 Nasal Cannula 2.0 28 10/15/19 19:00 96 Nasal Cannula 2.0 28 10/15/19 16:00 92 10/15/19 16:00 2.0 10/15/19 16:00 Nasal Cannula 2.0 10/15/19 15:59 98.1 94 18 122/96 (105) 95 10/15/19 12:00 84 10/15/19 11:56 2.0 10/15/19 11:53 Nasal Cannula 2.0 10/15/19 11:43 98.1 94 18 154/61 (92) 95 Height (Feet): 5 Height (Inches): 5.00 Weight (Pounds): 404 Respiratory/Chest: lungs clear Cardiovascular: normal rate, regular rhythm, no gallop/murmur Abdomen: soft, non tender Extremities: no edema Current Medications Medications (Trade) Dose Ordered Sig/Saira Route PRN Reason Start Time Stop Time Status Last Admin Dose Admin Acetaminophen (Tylenol) 650 mg Q6H PRN ORAL Mild Pain/Temp > 100.5 10/10/19 23:30 11/09/19 23:29 10/15/19 21:06 Acetaminophen/ Hydrocodone Bitart ([place] 10/325) 1 tab Q4H PRN ORAL For Pain 10/11/19 06:45 10/18/19 06:44 10/16/19 08:18 Albuterol/ Ipratropium (Combivent Respimat) 1 puff Q6H PRN INH Shortness of Breath 10/14/19 15:15 11/13/19 15:14 10/14/19 18:15 Ascorbic Acid (Vitamin C) 500 mg TWICE A DAY ORAL 10/13/19 15:00 11/12/19 14:59 10/16/19 08:17 Aspirin (ASA) 81 mg DAILY ORAL 10/11/19 09:00 11/25/19 08:59 10/16/19 08:16 Atorvastatin Calcium (Lipitor) 10 mg BEDTIME ORAL 10/11/19 21:00 01/09/20 20:59 10/15/19 21:00 Carvedilol (Coreg) 6.25 mg EVERY 12 HOURS ORAL 10/11/19 09:00 11/10/19 08:59 10/16/19 08:17 Cinacalcet (Sensipar) 30 mg DAILY ORAL 10/11/19 09:00 01/09/20 08:59 10/16/19 08:16 Clonazepam (KlonoPIN) 0.5 mg QHS ORAL 10/11/19 21:00 10/18/19 20:59 10/15/19 21:00 Duloxetine HCl (Cymbalta) 60 mg DAILY ORAL 10/15/19 09:00 01/09/20 08:59 10/16/19 08:16 Ferrous Sulfate (Feosol) 325 mg TID ORAL 10/11/19 09:00 01/09/20 08:59 10/16/19 08:16 Folic Acid (Folate) 1 mg DAILY ORAL 10/11/19 09:00 11/10/19 08:59 10/16/19 08:17 Furosemide (Lasix) 40 mg BID ORAL 10/15/19 18:00 11/10/19 17:59 10/16/19 08:17 Guaifenesin (Mucinex ER) 600 mg TWICE A DAY ORAL 10/15/19 09:00 01/13/20 08:59 10/16/19 08:16 Guaifenesin (Robitussin) 100 mg Q4H PRN ORAL cough 10/10/19 23:30 01/08/20 23:29 10/11/19 20:32 Heparin Sodium (Porcine) (Heparin 5000 units/ml) 5,000 units EVERY 12 HOURS SUBQ 10/11/19 09:00 11/25/19 08:59 10/16/19 08:15 Lacosamide (Vimpat) 100 mg Q12HR ORAL 10/11/19 09:00 01/09/20 08:59 10/16/19 08:16 Lidocaine (Lidoderm 5% PATCH) 3 patch DAILY TDERMAL 10/11/19 09:00 01/09/20 08:59 10/16/19 08:16 Magnesium Hydroxide (Mom) 30 ml DAILY PRN ORAL Constipation 10/10/19 23:30 11/09/19 23:29 10/12/19 18:23 Pantoprazole (Protonix) 40 mg EVERY 12 HOURS ORAL 10/11/19 09:00 11/10/19 08:59 10/16/19 08:16 Potassium Chloride (K-Dur) 20 meq DAILY ORAL 10/11/19 09:00 01/09/20 08:59 10/16/19 08:17 Pregabalin (Lyrica) 150 mg Q8HR ORAL 10/11/19 06:00 11/10/19 05:59 10/15/19 13:07 Promethazine HCl/ Codeine (Phenergan with Codeine) 5 ml Q4H PRN ORAL For Cough 10/10/19 23:30 11/09/19 23:29 10/16/19 04:06 Huma Serna MD Oct 16, 2019 11:05
[2019-10-16 11:50] VITALS: BP 155/77
--- NOTE | 2019-10-16 12:00 | NUR ---
NURSE NOTES: COVID-19 swab performed and sample sent to lab. Lab personnel informed. Noted. Will continue to monitor patient.
--- NOTE | 2019-10-16 13:48 | Pulmonology Progress Note ---
Assessment/Plan Assessment/Plan IMPRESSION: Pulmonary infection, asthma, wheezing, history of VRE, COVID positive, stroke. PLAN care as is isolation pending second covid results monitor for change ID follow up and currently off antibiotics on meds as is DVT prophylaxis close follow up and hope to dc soon impression, plan, and exam edited and reviewed in detail care discussed with RN Subjective Allergies: Coded Allergies: CEFEPIME (Unverified Allergy, Unknown, 11/03/17) LEVOFLOXACIN (Unverified Allergy, Unknown, 11/03/17) PENICILLINS (Unverified Allergy, Unknown, 11/03/17) Subjective care noted overnight no distress on oxygen Objective Last 24 Hour Vital Signs Date Time Temp Pulse Resp B/P (MAP) Pulse Ox O2 Delivery O2 Flow Rate FiO2 10/16/19 12:00 87 10/16/19 12:00 2.0 10/16/19 12:00 Nasal Cannula 2.0 10/16/19 11:50 98.2 89 18 155/77 (103) 95 10/16/19 08:17 90 139/59 10/16/19 08:00 94 10/16/19 08:00 98.1 90 18 130/50 (76) 97 10/16/19 08:00 Nasal Cannula 2.0 10/16/19 08:00 2.0 10/16/19 04:36 98.4 10/16/19 04:00 Nasal Cannula 2.0 10/16/19 04:00 2.0 10/16/19 04:00 98.4 90 18 139/59 (85) 96 10/16/19 03:39 87 10/16/19 00:00 2.0 10/16/19 00:00 98.9 90 18 146/63 (90) 97 10/16/19 00:00 89 10/16/19 00:00 Nasal Cannula 2.0 10/15/19 21:36 99.1 10/15/19 21:02 97 143/57 10/15/19 20:00 Nasal Cannula 2.0 10/15/19 20:00 2.0 10/15/19 20:00 100.6 97 18 143/57 (85) 96 10/15/19 19:44 101 10/15/19 19:00 97 18 96 Nasal Cannula 2.0 28 10/15/19 19:00 96 Nasal Cannula 2.0 28 10/15/19 16:00 92 10/15/19 16:00 2.0 10/15/19 16:00 Nasal Cannula 2.0 10/15/19 15:59 98.1 94 18 122/96 (105) 95 Intake and Output 10/15/19 10/16/19 19:00 07:00 Output Total 100 ml Balance -100 ml Output Urine Total 100 ml # Voids 2 2 # Bowel Movements 51 Objective WDWN NAD clear breath sounds bilaterally without rhonchi or wheeze [id number] without MRG NABS nontender no HSM no CCE nonfocal Current Medications Medications (Trade) Dose Ordered Sig/Saira Route PRN Reason Start Time Stop Time Status Last Admin Dose Admin Acetaminophen (Tylenol) 650 mg Q6H PRN ORAL Mild Pain/Temp > 100.5 10/10/19 23:30 11/09/19 23:29 10/15/19 21:06 Acetaminophen/ Hydrocodone Bitart ([place] 10/325) 1 tab Q4H PRN ORAL For Pain 10/11/19 06:45 10/18/19 06:44 10/16/19 13:03 Albuterol/ Ipratropium (Combivent Respimat) 1 puff Q6H PRN INH Shortness of Breath 10/14/19 15:15 11/13/19 15:14 10/14/19 18:15 Ascorbic Acid (Vitamin C) 500 mg TWICE A DAY ORAL 10/13/19 15:00 11/12/19 14:59 10/16/19 08:17 Aspirin (ASA) 81 mg DAILY ORAL 10/11/19 09:00 11/25/19 08:59 10/16/19 08:16 Atorvastatin Calcium (Lipitor) 10 mg BEDTIME ORAL 10/11/19 21:00 01/09/20 20:59 10/15/19 21:00 Carvedilol (Coreg) 6.25 mg EVERY 12 HOURS ORAL 10/11/19 09:00 11/10/19 08:59 10/16/19 08:17 Cinacalcet (Sensipar) 30 mg DAILY ORAL 10/11/19 09:00 01/09/20 08:59 10/16/19 08:16 Clonazepam (KlonoPIN) 0.5 mg QHS ORAL 10/11/19 21:00 4/5/20 20:59 10/15/19 21:00 Duloxetine HCl (Cymbalta) 60 mg DAILY ORAL 10/15/19 09:00 01/09/20 08:59 10/16/19 08:16 Ferrous Sulfate (Feosol) 325 mg TID ORAL 10/11/19 09:00 01/09/20 08:59 10/16/19 13:03 Folic Acid (Folate) 1 mg DAILY ORAL 10/11/19 09:00 11/10/19 08:59 10/16/19 08:17 Furosemide (Lasix) 40 mg BID ORAL 10/15/19 18:00 11/10/19 17:59 10/16/19 08:17 Guaifenesin (Mucinex ER) 600 mg TWICE A DAY ORAL 10/15/19 09:00 01/13/20 08:59 10/16/19 08:16 Guaifenesin (Robitussin) 100 mg Q4H PRN ORAL cough 10/10/19 23:30 01/08/20 23:29 10/11/19 20:32 Heparin Sodium (Porcine) (Heparin 5000 units/ml) 5,000 units EVERY 12 HOURS SUBQ 10/11/19 09:00 11/25/19 08:59 10/16/19 08:15 Lacosamide (Vimpat) 100 mg Q12HR ORAL 10/11/19 09:00 01/09/20 08:59 10/16/19 08:16 Lidocaine (Lidoderm 5% PATCH) 3 patch DAILY TDERMAL 10/11/19 09:00 01/09/20 08:59 10/16/19 08:16 Magnesium Hydroxide (Mom) 30 ml DAILY PRN ORAL Constipation 10/10/19 23:30 11/09/19 23:29 10/12/19 18:23 Pantoprazole (Protonix) 40 mg EVERY 12 HOURS ORAL 10/11/19 09:00 11/10/19 08:59 10/16/19 08:16 Potassium Chloride (K-Dur) 20 meq DAILY ORAL 10/11/19 09:00 01/09/20 08:59 10/16/19 08:17 Pregabalin (Lyrica) 150 mg Q8HR ORAL 10/11/19 06:00 4/28/20 05:59 10/16/19 13:02 Promethazine HCl/ Codeine (Phenergan with Codeine) 5 ml Q4H PRN ORAL For Cough 10/10/19 23:30 11/09/19 23:29 10/16/19 13:02 Darrel Schuster MD Oct 16, 2019 13:48
[2019-10-16 16:00] VITALS: BP 154/76
--- NOTE | 2019-10-16 16:22 | NUR ---
NURSE NOTES: Contacted Dr. Serna on tel: for order clarification, received voicemail, left message: inquired if would like to perform another COVID-19 swab 24 hours after last swab which was done at 1145 hours today. Awaiting call back. Will continue to monitor patient.
--- NOTE | 2019-10-16 19:02 | NUR ---
NURSE NOTES: Received report from Kush Rn, pt. in bed awake, appears to be comfortable watching television, pt. appears to be a/o x's 4- able to make needs known, no signs or symptoms of acute cardiac or respiratory distress noted, bed alarm on, side rails up x's3 and safety brakes engaged, pt. appears to be sating well on 2L NC- no distress noted, chest noted rising up and down- even and unlabored, pt. has pure wick in place and set to suction, LFA 18G IV intact and patent- SL, HOB elevated, comfort measures provided to patient, safety measures continued, will continue with plan of care.
--- NOTE | 2019-10-16 19:17 | NUR ---
HAND-OFF: Report given to MARKUS Sanderson.
[2019-10-16 20:00] VITALS: BP 131/89
[2019-10-16] MEDS: clonazePAM 0.5mg tab ORAL SCH (20:02)
[2019-10-17] VITALS: BP 136/69
[2019-10-17] MEDS: Promethazine/Codeine 5ml UD ORAL PRN ×5 (02:57→22:14)
[2019-10-17 04:00] VITALS: BP 145/67
[2019-10-17] MEDS: Lyrica 75mg cap ORAL SCH ×4 (05:13→21:25)
--- NOTE | 2019-10-17 05:15 | Progress Note ---
DATE: 10/16/2019 CARDIOLOGY PROGRESS NOTES SUBJECTIVE: The patient's condition continues to improve. She remains on oxygen supplementation. She has less shortness of breath. No complaints of chest pain. OBJECTIVE: VITAL SIGNS: T-max 100.6, blood pressure 139/59, heart rate 90, and respiratory rate 18. LUNGS: Bilateral breath sounds. Few rales. CARDIAC: Regular rhythm and rate. Normal S1 and S2. ABDOMEN: Soft. EXTREMITIES: No edema. IMPRESSION: 1. COVID-19 infection. 2. Chronic obstructive pulmonary disease. 3. Hypertensive heart disease. 4. Chronic diastolic congestive heart failure. PLAN: 1. Monitor QT interval while the patient is on hydroxychloroquine. 2. Maintenance dose diuretic with titration based on clinical parameters. 3. Respiratory hygiene. 4. DVT prophylaxis. 5. Oxygen supplementation. Carlos Eduardo Andino M.D. DR: JUDY JOB#: [id number] CC:
--- NOTE | 2019-10-17 05:44 | Progress Note ---
DATE: 10/13/2019 CARDIOLOGY PROGRESS NOTE Late entry for 10/13/2019. SUBJECTIVE: The patient is starting on COVID-19 treatment with hydroxychloroquine as well as azithromycin. The patient continues to have congestion, shortness of breath, and wheezing. Oxygen saturations are 97% on 2 liters. OBJECTIVE: VITAL SIGNS: Blood pressure 142/65, pulse 79, respirations 20. No fevers today. LUNGS: Bilateral breath sounds. Rhonchi. CARDIAC: Regular rhythm and rate. Normal S1 and S2. ABDOMEN: Soft. EXTREMITIES: Trace edema. Monitored rhythm, sinus rhythm, atrial ectopy. IMPRESSION: 1. COVID-19, pneumonia. 2. Chronic obstructive pulmonary disease. 3. ____ bronchospasm. 4. Hypertensive heart disease. 5. Chronic diastolic congestive heart failure. PLAN: 1. Oxygen. 2. Antimicrobials. 3. Hydroxychloroquine and azithromycin trial. 4. Monitor QT interval while on drug combination. 5. Monitor volume status. 6. Adjust IV fluids. 7. Reassess for diuresis. 8. The patient remains high risk. Carlos Eduardo Andino M.D. DR: JUDY JOB#: [id number] CC:
--- NOTE | 2019-10-17 06:53 | NUR ---
HAND-OFF: Report given to Kush Rn, pt. remains stable and no signs of distress noted. Nurse aware to f/u on any abnormal am labs.
--- NOTE | 2019-10-17 07:16 | NUR ---
NURSE NOTES: Received report from MARKUS Sanderson. Patient is resting in bed, in stable condition. No s/sx of SOB, breathing is even and unlabored, on 2LNC. Denies any presence of pain or discomfort at this time. Bed is in lowest position. Brakes engaged. Call light is kept within easy reach. Will continue to monitor patient.
[2019-10-17 08:00] VITALS: BP 125/71
--- NOTE | 2019-10-17 09:00 | NUR ---
NURSE NOTES: Dr. Mcgrath at nurse station. Made aware of patient's potassium level of 4.9 and that patient has scheduled order of K-Dur [address] Mcgrath acknowledged and ordered to discontinue K-dur. Order discontinued. Will continue to monitor patient.
[2019-10-17] MEDS: Heparin 5000 units/ml inj SUBQ SCH ×2 (09:19→20:30)
[2019-10-17] MEDS: Lacosamide 50mg tablet ORAL SCH ×2 (09:20→20:25)
[2019-10-17] MEDS: Ascorbic Acid 500mg tab ORAL SCH ×2 (09:20→18:07)
[2019-10-17] MEDS: Aspirin Baby 81mg ORAL SCH (09:20)
[2019-10-17] MEDS: Furosemide 40mg tab ORAL SCH ×2 (09:20→18:06)
[2019-10-17] MEDS: Sensipar 30mg Tab ORAL SCH (09:20)
[2019-10-17] MEDS: guaiFENesin ER 600mg tab ORAL SCH ×2 (09:20→18:07)
[2019-10-17] MEDS: Carvedilol 6.25mg Tab ORAL SCH ×2 (09:21→20:29)
[2019-10-17] MEDS: HYDROcodone/Acetamin 10/325 tab ORAL PRN ×4 (09:22→22:14)
--- NOTE | 2019-10-17 10:37 | NUR ---
NURSE NOTES: Spoke with Dr. Serna via telephone regarding COVID-[address] Serna perform another COVID-19 swab today, 24 hours apart from yesterday's COVID-19 swab repeat. Order entered and time for 1145 hours today. Noted. Will continue to monitor patient.
--- NOTE | 2019-10-17 11:07 | General Progress Note ---
Assessment/Plan Problem List: (1) COPD with asthma ICD Codes: J44.9 - Chronic obstructive pulmonary disease, unspecified SNOMED: 99273411599987628 (2) Seizure ICD Codes: R56.9 - Unspecified convulsions SNOMED: 53135550 (3) CVA (cerebral vascular accident) ICD Codes: I63.9 - Cerebral infarction, unspecified SNOMED: 375341447 (4) Functional quadriplegia ICD Codes: R53.2 - Functional quadriplegia SNOMED: 036426670295844 (5) COVID-19 ICD Codes: U07.1 - COVID-19 SNOMED: 744334263 Status: stable Assessment/Plan: Continue current treatment. Supplemental oxygen and breathing treatments if needed. Continue pain regimen. Continue cough treatment. Repeat coronavirus PCR x2 per ID recommendations. Discharge planning if both are negative. Subjective ROS Limited/Unobtainable: No Constitutional: Reports: malaise, weakness HEENT: Reports: no symptoms Cardiovascular: Reports: no symptoms Respiratory: Reports: cough Gastrointestinal/Abdominal: Reports: no symptoms Genitourinary: Reports: no symptoms Neurologic/Psychiatric: Reports: no symptoms Endocrine: Reports: no symptoms Hematologic/Lymphatic: Reports: no symptoms Allergies: Coded Allergies: CEFEPIME (Unverified Allergy, Unknown, 11/03/17) LEVOFLOXACIN (Unverified Allergy, Unknown, 11/03/17) PENICILLINS (Unverified Allergy, Unknown, 11/03/17) All Systems: reviewed and negative except above Subjective states she feels better. remains on o2- chronically. no fevers or chills. pain controlled. no vomiting. Patient completed her coronavirus treatment with hydroxychloroquine and azithromycin. She has a continued cough which is chronic. No fevers Objective Last 24 Hour Vital Signs Date Time Temp Pulse Resp B/P (MAP) Pulse Ox O2 Delivery O2 Flow Rate FiO2 10/17/19 09:21 95 145/67 10/17/19 08:00 Nasal Cannula 2.0 10/17/19 08:00 98.2 100 18 125/71 (89) 92 10/17/19 08:00 2.0 10/17/19 08:00 95 10/17/19 04:05 95 10/17/19 04:00 2.0 10/17/19 04:00 Nasal Cannula 2.0 10/17/19 04:00 97.8 92 18 145/67 (93) 97 10/17/19 00:16 97.9 10/17/19 00:00 98.1 89 18 136/69 (91) 96 10/17/19 00:00 Nasal Cannula 2.0 10/17/19 00:00 2.0 10/16/19 23:52 95 10/16/19 21:08 96 10/16/19 20:03 106 131/89 10/16/19 20:00 2.0 10/16/19 20:00 97.9 106 18 131/89 (103) 95 10/16/19 20:00 Nasal Cannula 2.0 10/16/19 19:49 97 Nasal Cannula 2.0 28 10/16/19 19:48 91 18 97 Nasal Cannula 2.0 28 10/16/19 16:00 2.0 10/16/19 16:00 89 10/16/19 16:00 98.1 94 18 154/76 (102) 94 10/16/19 16:00 Nasal Cannula 2.0 10/16/19 12:00 87 10/16/19 12:00 2.0 10/16/19 12:00 Nasal Cannula 2.0 10/16/19 11:50 98.2 89 18 155/77 (103) 95 Intake and Output 10/16/19 10/17/19 19:00 07:00 Output Total 300 ml 30 ml Balance -300 ml -30 ml Output Urine Total 300 ml Stool Total 30 ml # Voids 2 2 # Bowel Movements 50 Height (Feet): 5 Height (Inches): 5.00 Weight (Pounds): 404 Objective General Appearance: WD/WN, alert Neck: supple Cardiovascular: normal rate Respiratory/Chest: chest wall non-tender, lungs clear, normal breath sounds, no respiratory distress Abdomen: normal bowel sounds, non tender, soft, no organomegaly Edema: no edema noted Arm (L), no edema noted Arm (R), no edema noted Leg (L), no edema noted Leg (R), no edema noted Pedal (L), no edema noted Pedal (R), no edema noted Generalized Kenroy Mcgrath MD Oct 17, 2019 11:07
[2019-10-17 12:00] VITALS: BP 155/72
--- NOTE | 2019-10-17 12:05 | NUR ---
NURSE NOTES: Second repeat of COVID-19 swab taken 24 hours after yesterday's first repeat COVID-19 swab. Sample taken to lab. Noted.
--- NOTE | 2019-10-17 13:57 | NUR ---
NURSE NOTES: Patient refused Lyrica medication. Pt is in COVID-19 isolation, wasted Lyrica in patient's room sharps container. Made pharmacist Franco aware. Noted.
--- NOTE | 2019-10-17 15:06 | Pulmonology Progress Note ---
Assessment/Plan Assessment/Plan Pulmonary Progress Note Assessment/Plan IMPRESSION: COVID Pneumonia, COPD/asthma, wheezing, history of VRE, stroke, Sz hx. PLAN care as is monitor for change ID follow up on meds as is DVT prophylaxis close follow up and hope to dc soon impression, plan, and exam edited and reviewed in detail care discussed with RN Subjective Allergies: Coded Allergies: CEFEPIME (Unverified Allergy, Unknown, 11/03/17) LEVOFLOXACIN (Unverified Allergy, Unknown, 11/03/17) PENICILLINS (Unverified Allergy, Unknown, 11/03/17) Subjective care noted overnight no distress on oxygen Objective Vital Signs Noted Objective WDWN NAD clear breath sounds bilaterally without rhonchi or wheeze [id number] without MRG NABS nontender no HSM no CCE nonfocal Current Medications Medications (Trade) Dose Ordered Sig/Saira Route PRN Reason Start Time Stop Time Status Last Admin Dose Admin Acetaminophen (Tylenol) 650 mg Q6H PRN ORAL Mild Pain/Temp > 100.5 10/10/19 23:30 11/09/19 23:29 10/15/19 21:06 Acetaminophen/ Hydrocodone Bitart ([place] 10/325) 1 tab Q4H PRN ORAL For Pain 10/11/19 06:45 10/18/19 06:44 10/16/19 13:03 Albuterol/ Ipratropium (Combivent Respimat) 1 puff Q6H PRN INH Shortness of Breath 10/14/19 15:15 11/13/19 15:14 10/14/19 18:15 Ascorbic Acid (Vitamin C) 500 mg TWICE A DAY ORAL 10/13/19 15:00 11/12/19 14:59 10/16/19 08:17 Aspirin (ASA) 81 mg DAILY ORAL 10/11/19 09:00 11/25/19 08:59 10/16/19 08:16 Atorvastatin Calcium (Lipitor) 10 mg BEDTIME ORAL 10/11/19 21:00 01/09/20 20:59 10/15/19 21:00 Carvedilol (Coreg) 6.25 mg EVERY 12 HOURS ORAL 10/11/19 09:00 11/10/19 08:59 10/16/19 08:17 Cinacalcet (Sensipar) 30 mg DAILY ORAL 10/11/19 09:00 01/09/20 08:59 10/16/19 08:16 Clonazepam (KlonoPIN) 0.5 mg QHS ORAL 10/11/19 21:00 10/18/19 20:59 10/15/19 21:00 Duloxetine HCl (Cymbalta) 60 mg DAILY ORAL 10/15/19 09:00 01/09/20 08:59 10/16/19 08:16 Ferrous Sulfate (Feosol) 325 mg TID ORAL 10/11/19 09:00 01/09/20 08:59 10/16/19 13:03 Folic Acid (Folate) 1 mg DAILY ORAL 10/11/19 09:00 11/10/19 08:59 10/16/19 08:17 Furosemide (Lasix) 40 mg BID ORAL 10/15/19 18:00 11/10/19 17:59 10/16/19 08:17 Guaifenesin (Mucinex ER) 600 mg TWICE A DAY ORAL 10/15/19 09:00 01/13/20 08:59 10/16/19 08:16 Guaifenesin (Robitussin) 100 mg Q4H PRN ORAL cough 10/10/19 23:30 01/08/20 23:29 10/11/19 20:32 Heparin Sodium (Porcine) (Heparin 5000 units/ml) 5,000 units EVERY 12 HOURS SUBQ 10/11/19 09:00 11/25/19 08:59 10/16/19 08:15 Lacosamide (Vimpat) 100 mg Q12HR ORAL 10/11/19 09:00 01/09/20 08:59 10/16/19 08:16 Lidocaine (Lidoderm 5% PATCH) 3 patch DAILY TDERMAL 10/11/19 09:00 01/09/20 08:59 10/16/19 08:16 Magnesium Hydroxide (Mom) 30 ml DAILY PRN ORAL Constipation 10/10/19 23:30 11/09/19 23:29 10/12/19 18:23 Pantoprazole (Protonix) 40 mg EVERY 12 HOURS ORAL 10/11/19 09:00 11/10/19 08:59 10/16/19 08:16 Potassium Chloride (K-Dur) 20 meq DAILY ORAL 10/11/19 09:00 6/27/20 08:59 10/16/19 08:17 Pregabalin (Lyrica) 150 mg Q8HR ORAL 10/11/19 06:00 11/10/19 05:59 10/16/19 13:02 Promethazine HCl/ Codeine (Phenergan with Codeine) 5 ml Q4H PRN ORAL For Cough 10/10/19 23:30 11/09/19 23:29 10/16/19 13:02 Labs, CXR noted Subjective ROS Limited/Unobtainable: No Allergies: Coded Allergies: CEFEPIME (Unverified Allergy, Unknown, 11/03/17) LEVOFLOXACIN (Unverified Allergy, Unknown, 11/03/17) PENICILLINS (Unverified Allergy, Unknown, 11/03/17) Objective Last 24 Hour Vital Signs Date Time Temp Pulse Resp B/P (MAP) Pulse Ox O2 Delivery O2 Flow Rate FiO2 10/17/19 12:00 2.0 10/17/19 12:00 85 10/17/19 12:00 98.2 78 18 155/72 (99) 95 10/17/19 12:00 Nasal Cannula 2.0 10/17/19 09:21 95 145/67 10/17/19 08:00 Nasal Cannula 2.0 10/17/19 08:00 98.2 100 18 125/71 (89) 92 10/17/19 08:00 2.0 10/17/19 08:00 95 10/17/19 04:05 95 10/17/19 04:00 2.0 10/17/19 04:00 Nasal Cannula 2.0 10/17/19 04:00 97.8 92 18 145/67 (93) 97 10/17/19 00:16 97.9 10/17/19 00:00 98.1 89 18 136/69 (91) 96 10/17/19 00:00 Nasal Cannula 2.0 10/17/19 00:00 2.0 10/16/19 23:52 95 10/16/19 21:08 96 10/16/19 20:03 106 131/89 10/16/19 20:00 2.0 10/16/19 20:00 97.9 106 18 131/89 (103) 95 10/16/19 20:00 Nasal Cannula 2.0 10/16/19 19:49 97 Nasal Cannula 2.0 28 10/16/19 19:48 91 18 97 Nasal Cannula 2.0 28 10/16/19 16:00 2.0 10/16/19 16:00 89 10/16/19 16:00 98.1 94 18 154/76 (102) 94 10/16/19 16:00 Nasal Cannula 2.0 Intake and Output 10/16/19 10/17/19 19:00 07:00 Output Total 300 ml 30 ml Balance -300 ml -30 ml Output Urine Total 300 ml Stool Total 30 ml # Voids 2 2 # Bowel Movements 50 Current Medications Medications (Trade) Dose Ordered Sig/Saira Route PRN Reason Start Time Stop Time Status Last Admin Dose Admin Acetaminophen (Tylenol) 650 mg Q6H PRN ORAL Mild Pain/Temp > 100.5 10/10/19 23:30 11/09/19 23:29 10/15/19 21:06 Acetaminophen/ Hydrocodone Bitart ([place] 10/325) 1 tab Q4H PRN ORAL For Pain 10/11/19 06:45 10/18/19 06:44 10/17/19 13:46 Albuterol/ Ipratropium (Combivent Respimat) 1 puff Q6H PRN INH Shortness of Breath 10/14/19 15:15 11/13/19 15:14 10/14/19 18:15 Ascorbic Acid (Vitamin C) 500 mg TWICE A DAY ORAL 10/13/19 15:00 11/12/19 14:59 10/17/19 09:20 Aspirin (ASA) 81 mg DAILY ORAL 10/11/19 09:00 11/25/19 08:59 10/17/19 09:20 Atorvastatin Calcium (Lipitor) 10 mg BEDTIME ORAL 10/11/19 21:00 01/09/20 20:59 10/16/19 20:03 Carvedilol (Coreg) 6.25 mg EVERY 12 HOURS ORAL 10/11/19 09:00 11/10/19 08:59 10/17/19 09:21 Cinacalcet (Sensipar) 30 mg DAILY ORAL 10/11/19 09:00 01/09/20 08:59 10/17/19 09:20 Clonazepam (KlonoPIN) 0.5 mg QHS ORAL 10/11/19 21:00 10/18/19 20:59 10/16/19 20:02 Duloxetine HCl (Cymbalta) 60 mg DAILY ORAL 10/15/19 09:00 01/09/20 08:59 10/17/19 09:20 Ferrous Sulfate (Feosol) 325 mg TID ORAL 10/11/19 09:00 01/09/20 08:59 10/17/19 13:45 Folic Acid (Folate) 1 mg DAILY ORAL 10/11/19 09:00 11/10/19 08:59 10/17/19 09:21 Furosemide (Lasix) 40 mg BID ORAL 10/15/19 18:00 11/10/19 17:59 10/17/19 09:20 Guaifenesin (Mucinex ER) 600 mg TWICE A DAY ORAL 10/15/19 09:00 01/13/20 08:59 10/17/19 09:20 Guaifenesin (Robitussin) 100 mg Q4H PRN ORAL cough 10/10/19 23:30 01/08/20 23:29 10/11/19 20:32 Heparin Sodium (Porcine) (Heparin 5000 units/ml) 5,000 units EVERY 12 HOURS SUBQ 10/11/19 09:00 11/25/19 08:59 10/17/19 09:19 Lacosamide (Vimpat) 100 mg Q12HR ORAL 10/11/19 09:00 01/09/20 08:59 10/17/19 09:20 Lidocaine (Lidoderm 5% PATCH) 3 patch DAILY TDERMAL 10/11/19 09:00 01/09/20 08:59 10/17/19 09:20 Magnesium Hydroxide (Mom) 30 ml DAILY PRN ORAL Constipation 10/10/19 23:30 11/09/19 23:29 10/12/19 18:23 Pantoprazole (Protonix) 40 mg EVERY 12 HOURS ORAL 10/11/19 09:00 11/10/19 08:59 10/17/19 09:21 Pregabalin (Lyrica) 150 mg Q8HR ORAL 10/11/19 06:00 11/10/19 05:59 10/16/19 13:02 Promethazine HCl/ Codeine (Phenergan with Codeine) 5 ml Q4H PRN ORAL For Cough 10/10/19 23:30 11/09/19 23:29 10/17/19 13:45 Carlos Eduardo Franklin MD Oct 17, 2019 15:06
[2019-10-17 16:00] VITALS: BP 149/91
--- NOTE | 2019-10-17 19:10 | NUR ---
HAND-OFF: Report given to MARKUS Sanderson.
--- NOTE | 2019-10-17 19:10 | NUR ---
NURSE NOTES: Received report from Kush Rn, pt. in bed awake, appears to be comfortable watching television in bed, pt. appears to be a/o x's 4- able to make needs known, monitor car operator on, no signs or symptoms of acute cardiac or respiratory distress noted, bed alarm on, side rails up x's3 and safety brakes engaged, pt. appears to be sating well on 2L NC- no distress noted, pt. has pure wick in place and set to suction, LFA 18G IV intact and patent- SL, HOB elevated, comfort measures provided to patient, safety measures continued, will continue with plan of care.
[2019-10-17 20:00] VITALS: BP 152/96
[2019-10-17] MEDS: clonazePAM 0.5mg tab ORAL SCH (20:30)
--- NOTE | 2019-10-17 23:15 | Progress Note ---
DATE: 10/17/2019 CARDIOLOGY PROGRESS NOTE SUBJECTIVE: The patient continues to have cough and congestion, but is improving. OBJECTIVE: VITAL SIGNS: Blood pressure 125/71, heart rate 95, respiratory rate 18. Monitor, sinus and sinus tachycardia. LUNGS: Coarse breath sounds. Rhonchi. CARDIAC: Regular rhythm and rate. Normal S1, S2. ABDOMEN: Soft. EXTREMITIES: Trace edema. LABORATORY DATA: laboratory studies. IMPRESSION: 1. COVID-19 pneumonia, status post therapies with azithromycin and hydroxychloroquine. 2. Hypertensive heart disease with overall adequate blood pressure control. 3. COPD with paroxysmal bronchospasm. 4. Chronic diastolic congestive heart failure. PLAN: 1. Respiratory therapy. 2. Monitor blood pressure and titrate medications accordingly. 3. DVT prophylaxis. 4. Trend natriuretic peptide assay. 5. The patient is off IV fluids at this time. 6. Maintenance diuretic dosing to be adjusted based on clinical parameters. Carlos Eduardo Andino M.D. DR: Savannah JOB#: [id number] CC:
[2019-10-18] VITALS: BP 133/75
[2019-10-18] MEDS: HYDROcodone/Acetamin 10/325 tab ORAL PRN (02:58)
[2019-10-18] MEDS: Promethazine/Codeine 5ml UD ORAL PRN ×2 (02:58→09:33)
[2019-10-18 04:00] VITALS: BP 144/68
[2019-10-18] MEDS: Lyrica 75mg cap ORAL SCH ×3 (05:24→20:47)
--- NOTE | 2019-10-18 06:58 | NUR ---
NURSE NOTES: notified DR. Franklin of 2nd Covid test coming back positive.
--- NOTE | 2019-10-18 06:59 | NUR ---
HAND-OFF: Report given to Med RN, pt. remains stable and no signs of distress noted, nurse aware to f/u on any abnormal am labs with Doctor as labs are still pending.
[2019-10-18 07:07] LABS: BASOPHILS % (AUTO) 0.4 % (0.0-2.0); EOSINOPHILS % (AUTO) 0.8 % (0.0-3.0); HEMATOCRIT 39.2 % (37.0-47.0); HEMOGLOBIN 12.4 G/DL (12.0-16.0); LYMPHOCYTES % (AUTO) 26.4 % (20.0-45.0); MEAN CORPUSCULAR VOLUME 89 FL (80-99); MONOCYTES % (AUTO) 8.7 % (1.0-10.0); NEUTROPHILS % (AUTO) 63.8 % (45.0-75.0); PLATELET COUNT 241 K/UL (150-450); RED BLOOD COUNT 4.41 M/UL (4.20-5.40); RED CELL DISTRIBUTION WIDTH 15.3 % (11.6-14.8); WHITE BLOOD COUNT 5.3 K/UL (4.8-10.8)
[2019-10-18 07:54] LABS: ALANINE AMINOTRANSFERASE 30 U/L (12-78); ALBUMIN 2.7 G/DL (3.4-5.0); ALBUMIN/GLOBULIN RATIO 0.6 (1.0-2.7); ALKALINE PHOSPHATASE 64 U/L (46-116); ANION GAP 9 mmol/L (5-15); ASPARTATE AMINO TRANSFERASE 29 U/L (15-37); BILIRUBIN,TOTAL 0.4 MG/DL (0.2-1.0); BLOOD UREA NITROGEN 6 mg/dL (7-18); CARBON DIOXIDE 39 MMOL/L (21-32); CHLORIDE 97 MMOL/L (98-107); CREATININE 0.7 MG/DL (0.55-1.30); POTASSIUM 2.8 MMOL/L (3.5-5.1); SODIUM 145 MMOL/L (136-145)
[2019-10-18 08:03] VITALS: BP 146/89
--- NOTE | 2019-10-18 08:13 | NUR ---
NURSE NOTES: Pt awake/alert in bed, breathing easily on 2 lpm n/c, denies SOB but c/o pain in BLE at this time. Pt had taken off nasal cannula, put back in place. Vital signs stable with SR @ 100. Pt repeatedly asks what my name is and says she has another nurse. Pt then repeated lyIV access left forearm flushed with 10 ml NS and locked. Rectal tube in place draining liquid stool into collection bag at foot of bed Bed left in low position, side rails up x 3, exit alarm set, and call light left near pt's hand. Addendum: 10/18/19 at 0821 by Harjeet Edwards RN Pt repeatedly asking for Kush, her nurse yesterday despite being told that Kush is not here today.
[2019-10-18] MEDS: Furosemide 40mg tab ORAL SCH ×2 (08:59→18:00)
[2019-10-18] MEDS: Aspirin Baby 81mg ORAL SCH (08:59)
[2019-10-18] MEDS: guaiFENesin ER 600mg tab ORAL SCH ×2 (08:59→18:00)
[2019-10-18] MEDS: Carvedilol 6.25mg Tab ORAL SCH ×2 (08:59→20:47)
[2019-10-18] MEDS: Ascorbic Acid 500mg tab ORAL SCH ×2 (09:00→18:00)
[2019-10-18] MEDS: Lacosamide 50mg tablet ORAL SCH ×2 (09:00→20:46)
[2019-10-18] MEDS: Sensipar 30mg Tab ORAL SCH (09:00)
[2019-10-18] MEDS: Heparin 5000 units/ml inj SUBQ SCH ×2 (09:01→20:46)
--- NOTE | 2019-10-18 09:17 | General Progress Note ---
Assessment/Plan Problem List: (1) COPD with asthma ICD Codes: J44.9 - Chronic obstructive pulmonary disease, unspecified SNOMED: 58290240972368190 (2) Seizure ICD Codes: R56.9 - Unspecified convulsions SNOMED: 92795892 (3) CVA (cerebral vascular accident) ICD Codes: I63.9 - Cerebral infarction, unspecified SNOMED: 709130060 (4) Functional quadriplegia ICD Codes: R53.2 - Functional quadriplegia SNOMED: 737437261854237 (5) COVID-19 ICD Codes: U07.1 - COVID-19 SNOMED: 011803128 Status: stable Assessment/Plan: Continue current treatment. Supplemental oxygen and breathing treatments if needed. Continue pain regimen. Continue cough treatment. Repeat coronavirus PCR x2 per ID recommendations. Discharge planning if both are negative. Subjective ROS Limited/Unobtainable: No Constitutional: Reports: malaise, weakness HEENT: Reports: no symptoms Cardiovascular: Reports: no symptoms Respiratory: Reports: cough, shortness of breath Gastrointestinal/Abdominal: Reports: no symptoms Genitourinary: Reports: no symptoms Neurologic/Psychiatric: Reports: no symptoms Endocrine: Reports: no symptoms Hematologic/Lymphatic: Reports: no symptoms Allergies: Coded Allergies: CEFEPIME (Unverified Allergy, Unknown, 11/03/17) LEVOFLOXACIN (Unverified Allergy, Unknown, 11/03/17) PENICILLINS (Unverified Allergy, Unknown, 11/03/17) All Systems: reviewed and negative except above Subjective states she feels better. remains on o2- chronically. no fevers or chills. pain controlled. no vomiting. Patient completed her coronavirus treatment with hydroxychloroquine and azithromycin. She has a continued cough which is chronic. No fevers Objective Last 24 Hour Vital Signs Date Time Temp Pulse Resp B/P (MAP) Pulse Ox O2 Delivery O2 Flow Rate FiO2 10/18/19 08:59 100 146/89 10/18/19 08:03 97.5 100 22 146/89 (108) 94 10/18/19 08:00 100 10/18/19 07:11 Nasal Cannula 2.0 10/18/19 04:00 2.0 10/18/19 04:00 Nasal Cannula 2.0 10/18/19 04:00 97.8 93 18 144/68 (93) 97 10/18/19 03:39 94 10/18/19 03:28 98.0 10/18/19 00:00 Nasal Cannula 2.0 10/18/19 00:00 98.0 94 18 133/75 (94) 98 10/18/19 00:00 2.0 10/17/19 23:53 90 10/17/19 20:29 94 152/96 10/17/19 20:01 91 10/17/19 20:00 98.2 94 18 152/96 (114) 97 10/17/19 20:00 2.0 10/17/19 20:00 Nasal Cannula 2.0 10/17/19 19:53 97 Nasal Cannula 2.0 28 10/17/19 19:52 93 18 97 Nasal Cannula 2.0 28 10/17/19 16:00 98.1 94 18 149/91 (110) 95 10/17/19 16:00 2.0 10/17/19 16:00 97 10/17/19 16:00 Nasal Cannula 2.0 10/17/19 12:00 2.0 10/17/19 12:00 85 10/17/19 12:00 98.2 78 18 155/72 (99) 95 10/17/19 12:00 Nasal Cannula 2.0 10/17/19 09:21 95 145/67 Intake and Output 10/17/19 10/18/19 19:00 07:00 # Voids 1 2 # Bowel Movements 50 Laboratory Tests 10/18/19 04:45: White Blood Count 5.3, Red Blood Count 4.41, Hemoglobin 12.4, Hematocrit 39.2, Mean Corpuscular Volume 89, Mean Corpuscular Hemoglobin 28.1, Mean Corpuscular Hemoglobin Concent 31.7L, Red Cell Distribution Width 15.3H, Platelet Count 241 , Mean Platelet Volume 6.9, Neutrophils (%) (Auto) 63.8, Lymphocytes (%) (Auto) 26.4, Monocytes (%) (Auto) 8.7, Eosinophils (%) (Auto) 0.8, Basophils (%) (Auto ) 0.4, Sodium Level 145, Potassium Level 2.8L, Chloride Level 97L, Carbon Dioxide Level 39H, Anion Gap 9, Blood Urea Nitrogen 6L, Creatinine 0.7, Estimat Glomerular Filtration Rate > 60, Glucose Level 115H, Calcium Level 8.0L, Magnesium Level 1.3L, Total Bilirubin 0.4, Aspartate Amino Transf (AST/SGOT) 29 , Alanine Aminotransferase (ALT/SGPT) 30, Alkaline Phosphatase 64, Pro-B-Type Natriuretic Peptide 25, Total Protein 7.3, Albumin 2.7L, Globulin 4.6, Albumin/ Globulin Ratio 0.6L Height (Feet): 5 Height (Inches): 5.00 Weight (Pounds): 404 Objective General Appearance: WD/WN, alert Neck: supple Cardiovascular: normal rate Respiratory/Chest: chest wall non-tender, lungs clear, normal breath sounds, no respiratory distress Abdomen: normal bowel sounds, non tender, soft, no organomegaly Edema: no edema noted Arm (L), no edema noted Arm (R), no edema noted Leg (L), no edema noted Leg (R), no edema noted Pedal (L), no edema noted Pedal (R), no edema noted Generalized Kenroy Mcgrath MD Oct 18, 2019 09:17
[2019-10-18 12:05] VITALS: BP 126/49
--- NOTE | 2019-10-18 14:29 | Infectious Diseases Prog Note ---
Assessment/Plan Assessment/Plan A 1. COVID 19 pneumonia 2. COPD 3. asthma 4. CVA 5. seizures 6. Hypkalemia P 1. will f/u repeated COVID19 tests 2. continue isolation Subjective ROS Limited/Unobtainable: No Constitutional: Denies: fever Respiratory: Reports: dry cough Gastrointestinal/Abdominal: Reports: no symptoms Genitourinary: Reports: no symptoms Allergies: Coded Allergies: CEFEPIME (Unverified Allergy, Unknown, 11/03/17) LEVOFLOXACIN (Unverified Allergy, Unknown, 11/03/17) PENICILLINS (Unverified Allergy, Unknown, 11/03/17) Objective Vital Signs Last 24 Hour Vital Signs Date Time Temp Pulse Resp B/P (MAP) Pulse Ox O2 Delivery O2 Flow Rate FiO2 10/18/19 12:05 Nasal Cannula 2.0 10/18/19 12:05 97.8 98 20 126/49 (74) 94 10/18/19 08:59 100 146/89 10/18/19 08:03 97.5 100 22 146/89 (108) 94 10/18/19 08:00 100 10/18/19 07:11 Nasal Cannula 2.0 10/18/19 04:00 2.0 10/18/19 04:00 Nasal Cannula 2.0 10/18/19 04:00 97.8 93 18 144/68 (93) 97 10/18/19 03:39 94 10/18/19 03:28 98.0 10/18/19 00:00 Nasal Cannula 2.0 10/18/19 00:00 98.0 94 18 133/75 (94) 98 10/18/19 00:00 2.0 10/17/19 23:53 90 10/17/19 20:29 94 152/96 10/17/19 20:01 91 10/17/19 20:00 98.2 94 18 152/96 (114) 97 10/17/19 20:00 2.0 10/17/19 20:00 Nasal Cannula 2.0 10/17/19 19:53 97 Nasal Cannula 2.0 28 10/17/19 19:52 93 18 97 Nasal Cannula 2.0 28 10/17/19 16:00 98.1 94 18 149/91 (110) 95 10/17/19 16:00 2.0 10/17/19 16:00 97 10/17/19 16:00 Nasal Cannula 2.0 Height (Feet): 5 Height (Inches): 5.00 Weight (Pounds): 404 General Appearance: other - obese Respiratory/Chest: lungs clear Cardiovascular: normal rate Abdomen: soft, non tender Extremities: no edema Neurologic/Psychiatric: alert, oriented x 3, responsive Laboratory Tests Test 10/18/19 04:45 White Blood Count 5.3 K/UL (4.8-10.8) Red Blood Count 4.41 M/UL (4.20-5.40) Hemoglobin 12.4 G/DL (12.0-16.0) Hematocrit 39.2 % (37.0-47.0) Mean Corpuscular Volume 89 FL (80-99) Mean Corpuscular Hemoglobin 28.1 PG (27.0-31.0) Mean Corpuscular Hemoglobin Concent 31.7 G/DL (32.0-36.0) L Red Cell Distribution Width 15.3 % (11.6-14.8) H Platelet Count 241 K/UL (150-450) Mean Platelet Volume 6.9 FL (6.5-10.1) Neutrophils (%) (Auto) 63.8 % (45.0-75.0) Lymphocytes (%) (Auto) 26.4 % (20.0-45.0) Monocytes (%) (Auto) 8.7 % (1.0-10.0) Eosinophils (%) (Auto) 0.8 % (0.0-3.0) Basophils (%) (Auto) 0.4 % (0.0-2.0) Sodium Level 145 MMOL/L (136-145) Potassium Level 2.8 MMOL/L (3.5-5.1) L Chloride Level 97 MMOL/L (98-107) L Carbon Dioxide Level 39 MMOL/L (21-32) H Anion Gap 9 mmol/L (5-15) Blood Urea Nitrogen 6 mg/dL (7-18) L Creatinine 0.7 MG/DL (0.55-1.30) Estimat Glomerular Filtration Rate > 60 mL/min (>60) Glucose Level 115 MG/DL (74-106) H Calcium Level 8.0 MG/DL (8.5-10.1) L Magnesium Level 1.3 MG/DL (1.8-2.4) L Total Bilirubin 0.4 MG/DL (0.2-1.0) Aspartate Amino Transf (AST/SGOT) 29 U/L (15-37) Alanine Aminotransferase (ALT/SGPT) 30 U/L (12-78) Alkaline Phosphatase 64 U/L (46-116) Pro-B-Type Natriuretic Peptide 25 pg/mL (0-125) Total Protein 7.3 G/DL (6.4-8.2) Albumin 2.7 G/DL (3.4-5.0) L Globulin 4.6 g/dL Albumin/Globulin Ratio 0.6 (1.0-2.7) L Current Medications Medications (Trade) Dose Ordered Sig/Saira Route PRN Reason Start Time Stop Time Status Last Admin Dose Admin Acetaminophen (Tylenol) 650 mg Q6H PRN ORAL Mild Pain/Temp > 100.5 10/10/19 23:30 11/09/19 23:29 10/15/19 21:06 Albuterol/ Ipratropium (Combivent Respimat) 1 puff Q6H PRN INH Shortness of Breath 10/14/19 15:15 11/13/19 15:14 10/14/19 18:15 Ascorbic Acid (Vitamin C) 500 mg TWICE A DAY ORAL 10/13/19 15:00 11/12/19 14:59 10/18/19 09:00 Aspirin (ASA) 81 mg DAILY ORAL 10/11/19 09:00 11/25/19 08:59 10/18/19 08:59 Atorvastatin Calcium (Lipitor) 10 mg BEDTIME ORAL 10/11/19 21:00 01/09/20 20:59 10/17/19 20:25 Carvedilol (Coreg) 6.25 mg EVERY 12 HOURS ORAL 10/11/19 09:00 11/10/19 08:59 10/18/19 08:59 Cinacalcet (Sensipar) 30 mg DAILY ORAL 10/11/19 09:00 01/09/20 08:59 10/18/19 09:00 Clonazepam (KlonoPIN) 0.5 mg QHS ORAL 10/11/19 21:00 10/18/19 20:59 10/17/19 20:30 Duloxetine HCl (Cymbalta) 60 mg DAILY ORAL 10/15/19 09:00 01/09/20 08:59 10/18/19 08:59 Ferrous Sulfate (Feosol) 325 mg TID ORAL 10/11/19 09:00 01/09/20 08:59 10/18/19 12:11 Folic Acid (Folate) 1 mg DAILY ORAL 10/11/19 09:00 11/10/19 08:59 10/18/19 08:59 Furosemide (Lasix) 40 mg BID ORAL 10/15/19 18:00 11/10/19 17:59 10/18/19 08:59 Guaifenesin (Mucinex ER) 600 mg TWICE A DAY ORAL 10/15/19 09:00 01/13/20 08:59 10/18/19 08:59 Guaifenesin (Robitussin) 100 mg Q4H PRN ORAL cough 10/10/19 23:30 01/08/20 23:29 10/11/19 20:32 Heparin Sodium (Porcine) (Heparin 5000 units/ml) 5,000 units EVERY 12 HOURS SUBQ 10/11/19 09:00 11/25/19 08:59 10/18/19 09:01 Lacosamide (Vimpat) 100 mg Q12HR ORAL 10/11/19 09:00 01/09/20 08:59 10/18/19 09:00 Lidocaine (Lidoderm 5% PATCH) 3 patch DAILY TDERMAL 10/11/19 09:00 01/09/20 08:59 10/18/19 09:01 Magnesium Hydroxide (Mom) 30 ml DAILY PRN ORAL Constipation 10/10/19 23:30 11/09/19 23:29 10/12/19 18:23 Pantoprazole (Protonix) 40 mg EVERY 12 HOURS ORAL 10/11/19 09:00 11/10/19 08:59 10/18/19 08:59 Pregabalin (Lyrica) 150 mg Q8HR ORAL 10/11/19 06:00 11/10/19 05:59 10/16/19 13:02 Promethazine HCl/ Codeine (Phenergan with Codeine) 5 ml Q4H PRN ORAL For Cough 10/10/19 23:30 11/09/19 23:29 10/18/19 09:33 Chris Arroyo MD Oct 18, 2019 14:29
[2019-10-18 16:00] VITALS: BP 142/89
--- NOTE | 2019-10-18 17:29 | Pulmonology Progress Note ---
Assessment/Plan Assessment/Plan Pulmonary Progress Note Assessment/Plan IMPRESSION: COVID Pneumonia, COPD/asthma, less wheezing, history of VRE, stroke , Sz hx. PLAN care as is monitor for change ID follow up on meds as is DVT prophylaxis close follow up and hope to dc soon impression, plan, and exam edited and reviewed in detail care discussed with RN Subjective Allergies: Coded Allergies: CEFEPIME (Unverified Allergy, Unknown, 11/03/17) LEVOFLOXACIN (Unverified Allergy, Unknown, 11/03/17) PENICILLINS (Unverified Allergy, Unknown, 11/03/17) Subjective care noted overnight no distress on oxygen Objective Vital Signs Noted Objective WDWN NAD clear breath sounds bilaterally without rhonchi or wheeze [id number] without MRG NABS nontender no HSM no CCE nonfocal Labs, CXR noted Subjective ROS Limited/Unobtainable: No Genitourinary: Reports: last menstrual period Allergies: Coded Allergies: CEFEPIME (Unverified Allergy, Unknown, 11/03/17) LEVOFLOXACIN (Unverified Allergy, Unknown, 11/03/17) PENICILLINS (Unverified Allergy, Unknown, 11/03/17) Objective Last 24 Hour Vital Signs Date Time Temp Pulse Resp B/P (MAP) Pulse Ox O2 Delivery O2 Flow Rate FiO2 10/18/19 12:05 Nasal Cannula 2.0 10/18/19 12:05 97.8 98 20 126/49 (74) 94 10/18/19 08:59 100 146/89 10/18/19 08:03 97.5 100 22 146/89 (108) 94 10/18/19 08:00 100 10/18/19 07:11 Nasal Cannula 2.0 10/18/19 04:00 2.0 10/18/19 04:00 Nasal Cannula 2.0 10/18/19 04:00 97.8 93 18 144/68 (93) 97 10/18/19 03:39 94 10/18/19 03:28 98.0 10/18/19 00:00 Nasal Cannula 2.0 10/18/19 00:00 98.0 94 18 133/75 (94) 98 10/18/19 00:00 2.0 10/17/19 23:53 90 10/17/19 20:29 94 152/96 10/17/19 20:01 91 10/17/19 20:00 98.2 94 18 152/96 (114) 97 10/17/19 20:00 2.0 10/17/19 20:00 Nasal Cannula 2.0 10/17/19 19:53 97 Nasal Cannula 2.0 28 10/17/19 19:52 93 18 97 Nasal Cannula 2.0 28 Intake and Output 10/17/19 10/18/19 19:00 07:00 # Voids 1 2 # Bowel Movements 50 Laboratory Tests 10/18/19 04:45: White Blood Count 5.3, Red Blood Count 4.41, Hemoglobin 12.4, Hematocrit 39.2, Mean Corpuscular Volume 89, Mean Corpuscular Hemoglobin 28.1, Mean Corpuscular Hemoglobin Concent 31.7L, Red Cell Distribution Width 15.3H, Platelet Count 241 , Mean Platelet Volume 6.9, Neutrophils (%) (Auto) 63.8, Lymphocytes (%) (Auto) 26.4, Monocytes (%) (Auto) 8.7, Eosinophils (%) (Auto) 0.8, Basophils (%) (Auto ) 0.4, Sodium Level 145, Potassium Level 2.8L, Chloride Level 97L, Carbon Dioxide Level 39H, Anion Gap 9, Blood Urea Nitrogen 6L, Creatinine 0.7, Estimat Glomerular Filtration Rate > 60, Glucose Level 115H, Calcium Level 8.0L, Magnesium Level 1.3L, Total Bilirubin 0.4, Aspartate Amino Transf (AST/SGOT) 29 , Alanine Aminotransferase (ALT/SGPT) 30, Alkaline Phosphatase 64, Pro-B-Type Natriuretic Peptide 25, Total Protein 7.3, Albumin 2.7L, Globulin 4.6, Albumin/ Globulin Ratio 0.6L Current Medications Medications (Trade) Dose Ordered Sig/Saira Route PRN Reason Start Time Stop Time Status Last Admin Dose Admin Acetaminophen (Tylenol) 650 mg Q6H PRN ORAL Mild Pain/Temp > 100.5 10/10/19 23:30 11/09/19 23:29 10/15/19 21:06 Albuterol/ Ipratropium (Combivent Respimat) 1 puff Q6H PRN INH Shortness of Breath 10/14/19 15:15 11/13/19 15:14 10/14/19 18:15 Ascorbic Acid (Vitamin C) 500 mg TWICE A DAY ORAL 10/13/19 15:00 11/12/19 14:59 10/18/19 09:00 Aspirin (ASA) 81 mg DAILY ORAL 10/11/19 09:00 11/25/19 08:59 10/18/19 08:59 Atorvastatin Calcium (Lipitor) 10 mg BEDTIME ORAL 10/11/19 21:00 01/09/20 20:59 10/17/19 20:25 Carvedilol (Coreg) 6.25 mg EVERY 12 HOURS ORAL 10/11/19 09:00 11/10/19 08:59 10/18/19 08:59 Cinacalcet (Sensipar) 30 mg DAILY ORAL 10/11/19 09:00 01/09/20 08:59 10/18/19 09:00 Clonazepam (KlonoPIN) 0.5 mg QHS ORAL 10/11/19 21:00 10/18/19 20:59 10/17/19 20:30 Duloxetine HCl (Cymbalta) 60 mg DAILY ORAL 10/15/19 09:00 01/09/20 08:59 10/18/19 08:59 Ferrous Sulfate (Feosol) 325 mg TID ORAL 10/11/19 09:00 01/09/20 08:59 10/18/19 12:11 Folic Acid (Folate) 1 mg DAILY ORAL 10/11/19 09:00 11/10/19 08:59 10/18/19 08:59 Furosemide (Lasix) 40 mg BID ORAL 10/15/19 18:00 11/10/19 17:59 10/18/19 08:59 Guaifenesin (Mucinex ER) 600 mg TWICE A DAY ORAL 10/15/19 09:00 01/13/20 08:59 10/18/19 08:59 Guaifenesin (Robitussin) 100 mg Q4H PRN ORAL cough 10/10/19 23:30 01/08/20 23:29 10/11/19 20:32 Heparin Sodium (Porcine) (Heparin 5000 units/ml) 5,000 units EVERY 12 HOURS SUBQ 10/11/19 09:00 11/25/19 08:59 10/18/19 09:01 Lacosamide (Vimpat) 100 mg Q12HR ORAL 10/11/19 09:00 01/09/20 08:59 10/18/19 09:00 Lidocaine (Lidoderm 5% PATCH) 3 patch DAILY TDERMAL 10/11/19 09:00 01/09/20 08:59 10/18/19 09:01 Magnesium Hydroxide (Mom) 30 ml DAILY PRN ORAL Constipation 10/10/19 23:30 11/09/19 23:29 10/12/19 18:23 Pantoprazole (Protonix) 40 mg EVERY 12 HOURS ORAL 10/11/19 09:00 11/10/19 08:59 10/18/19 08:59 Pregabalin (Lyrica) 150 mg Q8HR ORAL 10/11/19 06:00 11/10/19 05:59 10/18/19 14:00 Promethazine HCl/ Codeine (Phenergan with Codeine) 5 ml Q4H PRN ORAL For Cough 10/10/19 23:30 11/09/19 23:29 10/18/19 09:33 Carlos Eduardo Franklin MD Oct 18, 2019 17:29
--- NOTE | 2019-10-18 19:29 | NUR ---
NURSE NOTES: Received patient form MARKUS Jovel. Patient is aaox2 with confusion, vss, and no acute distress. Patient is cooperative, clean, on lunchroom monitor, 2L NC, and IV site is left forearm 18G. Skin is intact. According to day shift RN. Belinda Luevano, patients's sister, is the only one to receive information to reduce phone traffic for this patient Bed is at its lowest position, call light in reach and x3 bed rails are up. Will continue to monitor.
[2019-10-18 20:00] VITALS: BP 143/78
[2019-10-19] VITALS: BP 139/77
[2019-10-19 04:00] VITALS: BP 148/81
[2019-10-19] MEDS: Lyrica 75mg cap ORAL SCH ×4 (06:00→21:28)
--- NOTE | 2019-10-19 06:15 | Progress Note ---
DATE: 10/18/2019 CARDIOLOGY PROGRESS NOTE SUBJECTIVE: Feeling better. Less congested. Less short of breath. No fevers. PHYSICAL EXAMINATION: VITAL SIGNS: Blood pressure 146/89, heart rate 100, respirations 22, afebrile. Oxygen saturation on 2 liters 94 to 98%. The patient is not examined due to isolation concerns. QTc interval is less than 450 milliseconds. LABORATORY DATA: White count 5.3, hemoglobin 12.4. Sodium 145, potassium 2.8, bicarb 39, BUN 6, creatinine 0.7. Albumin 2.7. IMPRESSION: 1. Contraction alkalosis. 2. Hypokalemia. 3. COVID-19 pneumonia. 4. Hypertensive heart disease. 5. Atherosclerotic cardiovascular disease. 6. Hypokalemia and hypomagnesemia. PLAN: 1. Potassium replacement. 2. Discontinue diuretics. 3. Trend natriuretic peptide assay. 4. Continue respiratory therapy and isolation. 5. Electrolyte replacement as needed. Carlos Eduardo Andino M.D. DR: EDU JOB#: [id number] CC: CASSANDRA
[2019-10-19 06:53] LABS: BASOPHILS % (AUTO) 0.6 % (0.0-2.0); EOSINOPHILS % (AUTO) 0.7 % (0.0-3.0); HEMOGLOBIN 12.5 G/DL (12.0-16.0); LYMPHOCYTES % (AUTO) 25.9 % (20.0-45.0); MEAN CORPUSCULAR VOLUME 88 FL (80-99); MONOCYTES % (AUTO) 11.9 % (1.0-10.0); NEUTROPHILS % (AUTO) 60.8 % (45.0-75.0); PLATELET COUNT 275 K/UL (150-450); RED BLOOD COUNT 4.41 M/UL (4.20-5.40); WHITE BLOOD COUNT 5.7 K/UL (4.8-10.8)
--- NOTE | 2019-10-19 07:00 | NUR ---
HAND-OFF: Report given to MARKUS Jovel.
[2019-10-19 07:52] LABS: ANION GAP 8 mmol/L (5-15); BLOOD UREA NITROGEN 7 mg/dL (7-18); CARBON DIOXIDE 39 MMOL/L (21-32); CHLORIDE 98 MMOL/L (98-107); CREATININE 0.8 MG/DL (0.55-1.30); SODIUM 144 MMOL/L (136-145)
[2019-10-19] MEDS: Heparin 5000 units/ml inj SUBQ SCH ×2 (07:59→21:30)
[2019-10-19 08:00] VITALS: BP 141/78
[2019-10-19] MEDS: Promethazine/Codeine 5ml UD ORAL PRN ×2 (08:05→17:03)
[2019-10-19] MEDS: Lacosamide 50mg tablet ORAL SCH ×2 (08:05→21:28)
[2019-10-19] MEDS: guaiFENesin ER 600mg tab ORAL SCH ×2 (08:05→18:00)
[2019-10-19] MEDS: Ascorbic Acid 500mg tab ORAL SCH ×2 (08:06→20:02)
[2019-10-19] MEDS: Aspirin Baby 81mg ORAL SCH (08:06)
[2019-10-19] MEDS: Carvedilol 6.25mg Tab ORAL SCH ×2 (08:06→21:28)
[2019-10-19] MEDS: Sensipar 30mg Tab ORAL SCH (08:08)
[2019-10-19 08:10] LABS: POTASSIUM 2.6 MMOL/L (3.5-5.1)
--- NOTE | 2019-10-19 10:21 | Pulmonology Progress Note ---
Assessment/Plan Assessment/Plan IMPRESSION: Pulmonary infection, asthma, wheezing, history of VRE, COVID positive, stroke. PLAN care as is monitor for change ID follow up reviewed on meds as is DVT prophylaxis close follow up and hope to dc soon once cleared by ID impression, plan, and exam edited and reviewed in detail care discussed with RN Subjective Allergies: Coded Allergies: CEFEPIME (Unverified Allergy, Unknown, 11/03/17) LEVOFLOXACIN (Unverified Allergy, Unknown, 11/03/17) PENICILLINS (Unverified Allergy, Unknown, 11/03/17) Subjective care noted overnight no distress on oxygen but overall comfortable Objective Last 24 Hour Vital Signs Date Time Temp Pulse Resp B/P (MAP) Pulse Ox O2 Delivery O2 Flow Rate FiO2 10/19/19 08:39 Nasal Cannula 2.0 10/19/19 08:06 100 148/81 10/19/19 08:00 97.4 102 20 141/78 (99) 97 10/19/19 07:00 100 18 97 Nasal Cannula 2.0 28 10/19/19 07:00 97 Nasal Cannula 2.0 28 10/19/19 04:00 97.8 100 17 148/81 (103) 98 10/19/19 04:00 Nasal Cannula 2.0 10/19/19 03:37 94 10/19/19 00:00 98.0 98 18 139/77 (97) 96 10/19/19 00:00 96 10/19/19 00:00 Nasal Cannula 2.0 10/18/19 21:17 97.1 10/18/19 20:47 100 147/100 10/18/19 20:00 Nasal Cannula 2.0 10/18/19 20:00 98.4 104 20 143/78 (99) 95 10/18/19 19:58 104 18 95 Nasal Cannula 2.0 28 10/18/19 19:58 95 Nasal Cannula 2.0 28 10/18/19 19:05 99 10/18/19 16:00 97.1 105 22 142/89 (106) 96 10/18/19 16:00 94 10/18/19 16:00 Nasal Cannula 2.0 10/18/19 12:05 Nasal Cannula 2.0 10/18/19 12:05 97.8 98 20 126/49 (74) 94 10/18/19 12:00 91 Intake and Output 10/18/19 10/19/19 19:00 07:00 Intake Total 420 ml Balance 420 ml Intake Oral 420 ml # Voids 3 1 # Bowel Movements 50 11 Objective WDWN NAD clear breath sounds bilaterally without rhonchi or wheeze [id number] without MRG NABS nontender no HSM no CCE nonfocal Microbiology Date/Time Source Procedure Growth Status 10/17/19 11:45 Nasopharynx Coronavirus COVID-19 PCR (ABDIAZIZ) - Final Complete 10/16/19 11:45 Nasopharynx Coronavirus COVID-19 PCR (ABDIAZIZ) - Final Complete Laboratory Tests 10/19/19 03:40: White Blood Count 5.7, Red Blood Count 4.41, Hemoglobin 12.5, Hematocrit 39.0, Mean Corpuscular Volume 88, Mean Corpuscular Hemoglobin 28.3, Mean Corpuscular Hemoglobin Concent 32.0, Red Cell Distribution Width 15.0H, Platelet Count 275, Mean Platelet Volume 6.1L, Neutrophils (%) (Auto) 60.8, Lymphocytes (%) (Auto) 25.9, Monocytes (%) (Auto) 11.9H, Eosinophils (%) (Auto) 0.7, Basophils (%) ( Auto) 0.6, Sodium Level 144, Potassium Level 2.6*L, Chloride Level 98, Carbon Dioxide Level 39H, Anion Gap 8, Blood Urea Nitrogen 7, Creatinine 0.8, Estimat Glomerular Filtration Rate > 60, Glucose Level 104, Calcium Level 8.0L, Magnesium Level 1.2L, Pro-B-Type Natriuretic Peptide 37 Current Medications Medications (Trade) Dose Ordered Sig/Saira Route PRN Reason Start Time Stop Time Status Last Admin Dose Admin Acetaminophen (Tylenol) 650 mg Q6H PRN ORAL Mild Pain/Temp > 100.5 10/10/19 23:30 11/09/19 23:29 10/15/19 21:06 Albuterol/ Ipratropium (Combivent Respimat) 1 puff Q6H PRN INH Shortness of Breath 10/14/19 15:15 11/13/19 15:14 10/14/19 18:15 Ascorbic Acid (Vitamin C) 500 mg TWICE A DAY ORAL 10/13/19 15:00 11/12/19 14:59 10/19/19 08:06 Aspirin (ASA) 81 mg DAILY ORAL 10/11/19 09:00 11/25/19 08:59 10/19/19 08:06 Atorvastatin Calcium (Lipitor) 10 mg BEDTIME ORAL 10/11/19 21:00 01/09/20 20:59 10/18/19 20:47 Carvedilol (Coreg) 6.25 mg EVERY 12 HOURS ORAL 10/11/19 09:00 11/10/19 08:59 10/19/19 08:06 Cinacalcet (Sensipar) 30 mg DAILY ORAL 10/11/19 09:00 01/09/20 08:59 10/19/19 08:08 Duloxetine HCl (Cymbalta) 60 mg DAILY ORAL 10/15/19 09:00 01/09/20 08:59 10/19/19 08:07 Ferrous Sulfate (Feosol) 325 mg TID ORAL 10/11/19 09:00 01/09/20 08:59 10/19/19 08:06 Folic Acid (Folate) 1 mg DAILY ORAL 10/11/19 09:00 11/10/19 08:59 10/19/19 08:08 Guaifenesin (Mucinex ER) 600 mg TWICE A DAY ORAL 10/15/19 09:00 01/13/20 08:59 10/19/19 08:05 Guaifenesin (Robitussin) 100 mg Q4H PRN ORAL cough 10/10/19 23:30 01/08/20 23:29 10/11/19 20:32 Heparin Sodium (Porcine) (Heparin 5000 units/ml) 5,000 units EVERY 12 HOURS SUBQ 10/11/19 09:00 11/25/19 08:59 10/19/19 07:59 Lacosamide (Vimpat) 100 mg Q12HR ORAL 10/11/19 09:00 01/09/20 08:59 10/19/19 08:05 Lidocaine (Lidoderm 5% PATCH) 3 patch DAILY TDERMAL 10/11/19 09:00 01/09/20 08:59 10/19/19 08:07 Magnesium Hydroxide (Mom) 30 ml DAILY PRN ORAL Constipation 10/10/19 23:30 11/09/19 23:29 10/12/19 18:23 Pantoprazole (Protonix) 40 mg EVERY 12 HOURS ORAL 10/11/19 09:00 11/10/19 08:59 10/19/19 08:06 Potassium Chloride (K-Dur) 60 meq ONCE ORAL 10/19/19 09:00 10/19/19 10:59 Pregabalin (Lyrica) 150 mg Q8HR ORAL 10/11/19 06:00 11/10/19 05:59 10/18/19 20:47 Promethazine HCl/ Codeine (Phenergan with Codeine) 5 ml Q4H PRN ORAL For Cough 10/10/19 23:30 11/09/19 23:29 10/19/19 08:05 Darrel Schuster MD Oct 19, 2019 10:21
--- NOTE | 2019-10-19 10:51 | General Progress Note ---
Assessment/Plan Problem List: (1) COPD with asthma ICD Codes: J44.9 - Chronic obstructive pulmonary disease, unspecified SNOMED: 06855645342189712 (2) Seizure ICD Codes: R56.9 - Unspecified convulsions SNOMED: 63034589 (3) CVA (cerebral vascular accident) ICD Codes: I63.9 - Cerebral infarction, unspecified SNOMED: 263518692 (4) Functional quadriplegia ICD Codes: R53.2 - Functional quadriplegia SNOMED: 261654161735615 (5) COVID-19 ICD Codes: U07.1 - COVID-19 SNOMED: 477192768 Status: stable Assessment/Plan: Continue current treatment. Supplemental oxygen and breathing treatments if needed. Continue pain regimen. Continue cough treatment. Repeat coronavirus PCR x2 still positive. ID follow up Subjective ROS Limited/Unobtainable: No Constitutional: Reports: malaise, weakness HEENT: Reports: no symptoms Cardiovascular: Reports: no symptoms Respiratory: Reports: cough, shortness of breath Gastrointestinal/Abdominal: Reports: no symptoms Genitourinary: Reports: no symptoms Neurologic/Psychiatric: Reports: depressed Endocrine: Reports: no symptoms Hematologic/Lymphatic: Reports: anemia Allergies: Coded Allergies: CEFEPIME (Unverified Allergy, Unknown, 11/03/17) LEVOFLOXACIN (Unverified Allergy, Unknown, 11/03/17) PENICILLINS (Unverified Allergy, Unknown, 11/03/17) All Systems: reviewed and negative except above Subjective states she feels better. asking to go home. remains on o2- chronically. no fevers or chills. pain controlled. no vomiting. Patient completed her coronavirus treatment with hydroxychloroquine and azithromycin. repeat covid pcr still positive. No fevers Objective Last 24 Hour Vital Signs Date Time Temp Pulse Resp B/P (MAP) Pulse Ox O2 Delivery O2 Flow Rate FiO2 10/19/19 08:39 Nasal Cannula 2.0 10/19/19 08:06 100 148/81 10/19/19 08:00 97.4 102 20 141/78 (99) 97 10/19/19 07:00 100 18 97 Nasal Cannula 2.0 28 10/19/19 07:00 97 Nasal Cannula 2.0 28 10/19/19 04:00 97.8 100 17 148/81 (103) 98 10/19/19 04:00 Nasal Cannula 2.0 10/19/19 03:37 94 10/19/19 00:00 98.0 98 18 139/77 (97) 96 10/19/19 00:00 96 10/19/19 00:00 Nasal Cannula 2.0 10/18/19 21:17 97.1 10/18/19 20:47 100 147/100 10/18/19 20:00 Nasal Cannula 2.0 10/18/19 20:00 98.4 104 20 143/78 (99) 95 10/18/19 19:58 104 18 95 Nasal Cannula 2.0 28 10/18/19 19:58 95 Nasal Cannula 2.0 28 10/18/19 19:05 99 10/18/19 16:00 97.1 105 22 142/89 (106) 96 10/18/19 16:00 94 10/18/19 16:00 Nasal Cannula 2.0 10/18/19 12:05 Nasal Cannula 2.0 10/18/19 12:05 97.8 98 20 126/49 (74) 94 10/18/19 12:00 91 Intake and Output 10/18/19 10/19/19 19:00 07:00 Intake Total 420 ml Balance 420 ml Intake Oral 420 ml # Voids 3 1 # Bowel Movements 50 11 Laboratory Tests 10/19/19 03:40: White Blood Count 5.7, Red Blood Count 4.41, Hemoglobin 12.5, Hematocrit 39.0, Mean Corpuscular Volume 88, Mean Corpuscular Hemoglobin 28.3, Mean Corpuscular Hemoglobin Concent 32.0, Red Cell Distribution Width 15.0H, Platelet Count 275, Mean Platelet Volume 6.1L, Neutrophils (%) (Auto) 60.8, Lymphocytes (%) (Auto) 25.9, Monocytes (%) (Auto) 11.9H, Eosinophils (%) (Auto) 0.7, Basophils (%) ( Auto) 0.6, Sodium Level 144, Potassium Level 2.6*L, Chloride Level 98, Carbon Dioxide Level 39H, Anion Gap 8, Blood Urea Nitrogen 7, Creatinine 0.8, Estimat Glomerular Filtration Rate > 60, Glucose Level 104, Calcium Level 8.0L, Magnesium Level 1.2L, Pro-B-Type Natriuretic Peptide 37 Height (Feet): 5 Height (Inches): 5.00 Weight (Pounds): 404 Objective General Appearance: WD/WN, alert Neck: supple Cardiovascular: normal rate Respiratory/Chest: chest wall non-tender, lungs clear, normal breath sounds, no respiratory distress Abdomen: normal bowel sounds, non tender, soft, no organomegaly Edema: no edema noted Arm (L), no edema noted Arm (R), no edema noted Leg (L), no edema noted Leg (R), no edema noted Pedal (L), no edema noted Pedal (R), no edema noted Generalized Kenroy Mcgrath MD Oct 19, 2019 10:51
--- NOTE | 2019-10-19 10:58 | Infectious Diseases Prog Note ---
Assessment/Plan Assessment/Plan A 1. COVID 19 pneumonia - Tests are positive on 10/09, 10/15 & 10/16 2. COPD 3. asthma 4. CVA 5. seizures 6. Hypkalemia P 1. repeat COVID19 tests 2. continue isolation Subjective ROS Limited/Unobtainable: Yes Constitutional: Denies: fever Respiratory: Reports: dry cough Allergies: Coded Allergies: CEFEPIME (Unverified Allergy, Unknown, 11/03/17) LEVOFLOXACIN (Unverified Allergy, Unknown, 11/03/17) PENICILLINS (Unverified Allergy, Unknown, 11/03/17) Objective Vital Signs Last 24 Hour Vital Signs Date Time Temp Pulse Resp B/P (MAP) Pulse Ox O2 Delivery O2 Flow Rate FiO2 10/19/19 08:39 Nasal Cannula 2.0 10/19/19 08:06 100 148/81 10/19/19 08:00 97.4 102 20 141/78 (99) 97 10/19/19 07:00 100 18 97 Nasal Cannula 2.0 28 10/19/19 07:00 97 Nasal Cannula 2.0 28 10/19/19 04:00 97.8 100 17 148/81 (103) 98 10/19/19 04:00 Nasal Cannula 2.0 10/19/19 03:37 94 10/19/19 00:00 98.0 98 18 139/77 (97) 96 10/19/19 00:00 96 10/19/19 00:00 Nasal Cannula 2.0 10/18/19 21:17 97.1 10/18/19 20:47 100 147/100 10/18/19 20:00 Nasal Cannula 2.0 10/18/19 20:00 98.4 104 20 143/78 (99) 95 10/18/19 19:58 104 18 95 Nasal Cannula 2.0 28 10/18/19 19:58 95 Nasal Cannula 2.0 28 10/18/19 19:05 99 10/18/19 16:00 97.1 105 22 142/89 (106) 96 10/18/19 16:00 94 10/18/19 16:00 Nasal Cannula 2.0 10/18/19 12:05 Nasal Cannula 2.0 10/18/19 12:05 97.8 98 20 126/49 (74) 94 10/18/19 12:00 91 Height (Feet): 5 Height (Inches): 5.00 Weight (Pounds): 404 General Appearance: no acute distress, other - obese HEENT: mucous membranes moist Respiratory/Chest: lungs clear Cardiovascular: tachycardia Abdomen: soft, non tender Extremities: no edema Neurologic/Psychiatric: alert, responsive Microbiology Date/Time Source Procedure Growth Status 10/17/19 11:45 Nasopharynx Coronavirus COVID-19 PCR (ABDIAZIZ) - Final Complete 10/16/19 11:45 Nasopharynx Coronavirus COVID-19 PCR (ABDIAZIZ) - Final Complete Laboratory Tests Test 10/19/19 03:40 White Blood Count 5.7 K/UL (4.8-10.8) Red Blood Count 4.41 M/UL (4.20-5.40) Hemoglobin 12.5 G/DL (12.0-16.0) Hematocrit 39.0 % (37.0-47.0) Mean Corpuscular Volume 88 FL (80-99) Mean Corpuscular Hemoglobin 28.3 PG (27.0-31.0) Mean Corpuscular Hemoglobin Concent 32.0 G/DL (32.0-36.0) Red Cell Distribution Width 15.0 % (11.6-14.8) H Platelet Count 275 K/UL (150-450) Mean Platelet Volume 6.1 FL (6.5-10.1) L Neutrophils (%) (Auto) 60.8 % (45.0-75.0) Lymphocytes (%) (Auto) 25.9 % (20.0-45.0) Monocytes (%) (Auto) 11.9 % (1.0-10.0) H Eosinophils (%) (Auto) 0.7 % (0.0-3.0) Basophils (%) (Auto) 0.6 % (0.0-2.0) Sodium Level 144 MMOL/L (136-145) Potassium Level 2.6 MMOL/L (3.5-5.1) *L Chloride Level 98 MMOL/L (98-107) Carbon Dioxide Level 39 MMOL/L (21-32) H Anion Gap 8 mmol/L (5-15) Blood Urea Nitrogen 7 mg/dL (7-18) Creatinine 0.8 MG/DL (0.55-1.30) Estimat Glomerular Filtration Rate > 60 mL/min (>60) Glucose Level 104 MG/DL (74-106) Calcium Level 8.0 MG/DL (8.5-10.1) L Magnesium Level 1.2 MG/DL (1.8-2.4) L Pro-B-Type Natriuretic Peptide 37 pg/mL (0-125) Current Medications Medications (Trade) Dose Ordered Sig/Saira Route PRN Reason Start Time Stop Time Status Last Admin Dose Admin Acetaminophen (Tylenol) 650 mg Q6H PRN ORAL Mild Pain/Temp > 100.5 10/10/19 23:30 11/09/19 23:29 10/19/19 10:50 Albuterol/ Ipratropium (Combivent Respimat) 1 puff Q6H PRN INH Shortness of Breath 10/14/19 15:15 11/13/19 15:14 10/14/19 18:15 Ascorbic Acid (Vitamin C) 500 mg TWICE A DAY ORAL 10/13/19 15:00 11/12/19 14:59 10/19/19 08:06 Aspirin (ASA) 81 mg DAILY ORAL 10/11/19 09:00 11/25/19 08:59 10/19/19 08:06 Atorvastatin Calcium (Lipitor) 10 mg BEDTIME ORAL 10/11/19 21:00 01/09/20 20:59 10/18/19 20:47 Carvedilol (Coreg) 6.25 mg EVERY 12 HOURS ORAL 10/11/19 09:00 11/10/19 08:59 10/19/19 08:06 Cinacalcet (Sensipar) 30 mg DAILY ORAL 10/11/19 09:00 01/09/20 08:59 10/19/19 08:08 Duloxetine HCl (Cymbalta) 60 mg DAILY ORAL 10/15/19 09:00 01/09/20 08:59 10/19/19 08:07 Ferrous Sulfate (Feosol) 325 mg TID ORAL 10/11/19 09:00 01/09/20 08:59 10/19/19 08:06 Folic Acid (Folate) 1 mg DAILY ORAL 10/11/19 09:00 11/10/19 08:59 10/19/19 08:08 Guaifenesin (Mucinex ER) 600 mg TWICE A DAY ORAL 10/15/19 09:00 01/13/20 08:59 10/19/19 08:05 Guaifenesin (Robitussin) 100 mg Q4H PRN ORAL cough 10/10/19 23:30 01/08/20 23:29 10/11/19 20:32 Heparin Sodium (Porcine) (Heparin 5000 units/ml) 5,000 units EVERY 12 HOURS SUBQ 10/11/19 09:00 11/25/19 08:59 10/19/19 07:59 Lacosamide (Vimpat) 100 mg Q12HR ORAL 10/11/19 09:00 01/09/20 08:59 10/19/19 08:05 Lidocaine (Lidoderm 5% PATCH) 3 patch DAILY TDERMAL 10/11/19 09:00 01/09/20 08:59 10/19/19 08:07 Magnesium Hydroxide (Mom) 30 ml DAILY PRN ORAL Constipation 10/10/19 23:30 11/09/19 23:29 10/12/19 18:23 Pantoprazole (Protonix) 40 mg EVERY 12 HOURS ORAL 10/11/19 09:00 11/10/19 08:59 10/19/19 08:06 Potassium Chloride (K-Dur) 60 meq ONCE ORAL 10/19/19 09:00 10/19/19 10:59 10/19/19 09:00 Pregabalin (Lyrica) 150 mg Q8HR ORAL 10/11/19 06:00 11/10/19 05:59 10/18/19 20:47 Promethazine HCl/ Codeine (Phenergan with Codeine) 5 ml Q4H PRN ORAL For Cough 10/10/19 23:30 11/09/19 23:29 10/19/19 08:05 Chris Arroyo MD Oct 19, 2019 10:58
--- NOTE | 2019-10-19 11:41 | NUR ---
RD ASSESSMENT & RECOMMENDATIONS SEE CARE ACTIVITY FOR COMPLETE ASSESSMENT DAILY ESTIMATED NEEDS: Needs based on Obesity, cardiac/ 88kg abw 20-23 kcals/kg 7037-1471 total kcals 1-1.5 g protein/kg 88-132 g total protein Fluid per MD NUTRITION DIAGNOSIS: * Morbid obesity R/T lifestyle factors, w/ quadriplegia, as evidenced by BMI>60 per guidelines, pt is 320% of [place] Body Weight. CURRENT DIET:Low Na PO DIET RECOMMENDATIONS: Cardiac (Low Na, Low Fat)/ texture as tolerated ADDITIONAL RECOMMENDATIONS: * Calibrated bedscale wt * Monitor lytes daily, replete as needed (low K and mag) * Rec A1C for eval * Monitor PO intake- decreased PO intake noted at this time .
[2019-10-19 12:00] VITALS: BP 139/82
--- NOTE | 2019-10-19 12:33 | NUR ---
FIELD RADIO TECHNICIAN: REVIEW SI: COVID 19 DETECTED . PNA T 97.74 HR 102 RR 20 BP 148/81 SAT 97% NC/2L K+ 2.6 MAG 1.2 COVID 19 RETESTING POST TX PENDING IS: LACOSAMIDE PO Q12HR PHENERGAN 5MG PO Q4HR PRN COMBIVENT RESPIMAT INH Q6HR PRN GUAIFENESIN 100MG PO Q4HR PRN DROPLET ISOLATION STEP DOWN STATUS DCP: PATIENT IS FROM [facility]
[2019-10-19 16:00] VITALS: BP 135/65
--- NOTE | 2019-10-19 19:25 | NUR ---
NURSE NOTES: Pt received from Med RN alert and oriented. On 2L NC saturating at 97% with no acute s/s of resp distress noted. IV site asymptomatic and patent on L fa 18g, saline lock. Bed in lowest position, call light and belongings within reach.
[2019-10-19 20:00] VITALS: BP 149/84
--- NOTE | 2019-10-19 21:06 | NUR ---
NURSE NOTES: Informed Dr. Mcgrath that order for Hubbell 10/325 PO PRN q4h for pain fell out of orders. Per Dr. Mcgrath, pls re-order Hubbell 10/325 PO q4h for pain relief.
[2019-10-20] VITALS: BP 148/72
--- NOTE | 2019-10-20 03:30 | Progress Note ---
DATE: 10/19/2019 CARDIOLOGY PROGRESS NOTE SUBJECTIVE: Patient is feeling better. No shortness of breath. Remains on oxygen, but has chronic hypoxia. No fevers or chills. She continues to have positive COVID criteria, but has completed treatment with hydroxychloroquine and azithromycin. PHYSICAL EXAMINATION: VITAL SIGNS: Blood pressure 148/81, heart rate 100, respirations 20, afebrile. Monitored rhythm sinus. IMPRESSION: 1. COVID-19. 2. Hypertensive heart disease. 3. Diastolic dysfunction. 4. Cerebrovascular disease. 5. COPD. 6. Hypoxia. 7. Chronic diastolic congestive heart failure. 8. Secondary sinus tachycardia. PLAN: 1. Isolation. 2. Respiratory hygiene. 3. Maintenance oxygen. 4. Titrate antihypertensive regimen to optimize blood pressure control. 5. Monitor volume status, cardiorenal function, and consider diuresis based on clinical parameters. Carlos Eduardo Andino M.D. DR: EDU JOB#: [id number] CC:
--- NOTE | 2019-10-20 03:44 | Progress Note ---
DATE: 10/12/2019 CARDIOLOGY PROGRESS NOTE Late entry for 10/12/2019. SUBJECTIVE: The patient continues to have congestion, shortness of breath, and fevers. She is on COVID-19 isolation, but swab results are pending. Monitor, sinus and sinus tachycardia. OBJECTIVE: LUNGS: Bilateral breath sounds. Rhonchi. CARDIAC: Regular rhythm and rate. Normal S1, S2. ABDOMEN: Soft. EXTREMITIES: No edema. IMPRESSION: 1. Possible COVID pneumonia. 2. COPD exacerbation. 3. Chronic diastolic congestive heart failure with possible acute component. 4. Hypertensive heart disease. 5. Secondary sinus tachycardia. 6. Mild protein-calorie malnutrition. PLAN: 1. Await COVID results. 2. Continue isolation. 3. Respiratory hygiene. 4. Nasal oxygen. 5. Bronchodilators. 6. Monitor volume status and cardiorenal function. 7. Periodic diuresis based on clinical parameters. Carlos Eduardo Andino M.D. DR: EDU JOB#: [id number] CC:
[2019-10-20 04:00] VITALS: BP 147/76
[2019-10-20] MEDS: Lyrica 75mg cap ORAL SCH ×3 (05:41→21:37)
[2019-10-20 08:00] VITALS: BP 135/93
[2019-10-20] MEDS: Lacosamide 50mg tablet ORAL SCH ×2 (09:26→21:00)
[2019-10-20] MEDS: Aspirin Baby 81mg ORAL SCH (09:26)
[2019-10-20] MEDS: Sensipar 30mg Tab ORAL SCH (09:26)
[2019-10-20] MEDS: Ascorbic Acid 500mg tab ORAL SCH ×2 (09:26→17:35)
[2019-10-20] MEDS: guaiFENesin ER 600mg tab ORAL SCH ×2 (09:26→17:35)
[2019-10-20] MEDS: Carvedilol 6.25mg Tab ORAL SCH ×2 (09:26→21:00)
[2019-10-20] MEDS: Heparin 5000 units/ml inj SUBQ SCH ×2 (10:18→21:54)
--- NOTE | 2019-10-20 11:13 | Infectious Diseases Prog Note ---
Assessment/Plan Assessment/Plan antibiotics : none A 1. covid 19 pneumonia s/p rx positive tests on 3.28.20, 4.3.20, 4.4.20 2. COPD 3. asthma 4. CVA 5. seizures P 1. continue off antibiotics 2. continue isolation Subjective Constitutional: Denies: fever, chills Respiratory: Reports: shortness of breath - decreased; Denies: dry cough Gastrointestinal/Abdominal: Denies: nausea, vomiting, diarrhea Musculoskeletal: Denies: pain Allergies: Coded Allergies: CEFEPIME (Unverified Allergy, Unknown, 11/03/17) LEVOFLOXACIN (Unverified Allergy, Unknown, 11/03/17) PENICILLINS (Unverified Allergy, Unknown, 11/03/17) Objective Vital Signs Last 24 Hour Vital Signs Date Time Temp Pulse Resp B/P (MAP) Pulse Ox O2 Delivery O2 Flow Rate FiO2 10/20/19 09:26 98 135/93 10/20/19 08:00 Nasal Cannula 2.0 10/20/19 08:00 97.5 98 20 135/93 (107) 95 10/20/19 07:40 88 10/20/19 04:00 Nasal Cannula 2.0 10/20/19 04:00 97.8 104 20 147/76 (99) 97 10/20/19 04:00 86 10/20/19 00:00 Nasal Cannula 2.0 10/20/19 00:00 97.4 101 20 148/72 (97) 99 10/20/19 00:00 96 10/19/19 21:28 106 149/112 10/19/19 20:00 97.7 106 20 149/84 (105) 98 10/19/19 20:00 Nasal Cannula 2.0 10/19/19 20:00 98 10/19/19 19:48 96 Nasal Cannula 2.0 28 10/19/19 19:48 98 18 96 Nasal Cannula 2.0 28 10/19/19 16:04 Nasal Cannula 2.0 10/19/19 16:00 97.8 102 20 135/65 (88) 99 10/19/19 16:00 102 10/19/19 12:00 96 10/19/19 12:00 97.7 96 18 139/82 (101) 99 10/19/19 12:00 Nasal Cannula 2.0 Height (Feet): 5 Height (Inches): 5.00 Weight (Pounds): 404 Respiratory/Chest: lungs clear Cardiovascular: normal rate, regular rhythm, no gallop/murmur Abdomen: soft, non tender Extremities: no edema Microbiology Date/Time Source Procedure Growth Status 10/17/19 11:45 Nasopharynx Coronavirus COVID-19 PCR (ABDIAZIZ) - Final Complete Current Medications Medications (Trade) Dose Ordered Sig/Saira Route PRN Reason Start Time Stop Time Status Last Admin Dose Admin Acetaminophen (Tylenol) 650 mg Q6H PRN ORAL Mild Pain/Temp > 100.5 10/10/19 23:30 11/09/19 23:29 10/19/19 10:50 Acetaminophen/ Hydrocodone Bitart ([place] 10/325) 1 tab Q4H PRN ORAL Pain 4-10 10/19/19 21:15 10/26/19 21:14 Albuterol/ Ipratropium (Combivent Respimat) 1 puff Q6H PRN INH Shortness of Breath 10/14/19 15:15 11/13/19 15:14 10/14/19 18:15 Ascorbic Acid (Vitamin C) 500 mg TWICE A DAY ORAL 10/13/19 15:00 11/12/19 14:59 10/20/19 09:26 Aspirin (ASA) 81 mg DAILY ORAL 10/11/19 09:00 11/25/19 08:59 10/20/19 09:26 Atorvastatin Calcium (Lipitor) 10 mg BEDTIME ORAL 10/11/19 21:00 01/09/20 20:59 10/19/19 21:28 Carvedilol (Coreg) 12.5 mg EVERY 12 HOURS ORAL 10/20/19 09:00 11/19/19 08:59 10/20/19 09:26 Cinacalcet (Sensipar) 30 mg DAILY ORAL 10/11/19 09:00 01/09/20 08:59 10/20/19 09:26 Duloxetine HCl (Cymbalta) 60 mg DAILY ORAL 10/15/19 09:00 01/09/20 08:59 10/20/19 09:26 Ferrous Sulfate (Feosol) 325 mg TID ORAL 10/11/19 09:00 01/09/20 08:59 10/20/19 09:26 Folic Acid (Folate) 1 mg DAILY ORAL 10/11/19 09:00 11/10/19 08:59 10/20/19 09:26 Guaifenesin (Mucinex ER) 600 mg TWICE A DAY ORAL 10/15/19 09:00 01/13/20 08:59 10/20/19 09:26 Guaifenesin (Robitussin) 100 mg Q4H PRN ORAL cough 10/10/19 23:30 01/08/20 23:29 10/11/19 20:32 Heparin Sodium (Porcine) (Heparin 5000 units/ml) 5,000 units EVERY 12 HOURS SUBQ 10/11/19 09:00 11/25/19 08:59 10/20/19 10:18 Lacosamide (Vimpat) 100 mg Q12HR ORAL 10/11/19 09:00 01/09/20 08:59 10/20/19 09:26 Lidocaine (Lidoderm 5% PATCH) 3 patch DAILY TDERMAL 10/11/19 09:00 01/09/20 08:59 10/20/19 09:27 Magnesium Hydroxide (Mom) 30 ml DAILY PRN ORAL Constipation 10/10/19 23:30 11/09/19 23:29 10/12/19 18:23 Pantoprazole (Protonix) 40 mg EVERY 12 HOURS ORAL 10/11/19 09:00 11/10/19 08:59 10/20/19 09:26 Pregabalin (Lyrica) 150 mg Q8HR ORAL 10/11/19 06:00 11/10/19 05:59 10/20/19 05:41 Promethazine HCl/ Codeine (Phenergan with Codeine) 5 ml Q4H PRN ORAL For Cough 10/10/19 23:30 11/09/19 23:29 10/19/19 17:03 Huma Serna MD Oct 20, 2019 11:13
--- NOTE | 2019-10-20 11:17 | Pulmonology Progress Note ---
Assessment/Plan Assessment/Plan IMPRESSION: Pulmonary infection, asthma, wheezing, history of VRE, COVID positive, stroke. PLAN care as is monitor for change ID follow up reviewed off antibiotics maintain isolation DVT prophylaxis close follow up and hope to dc soon once cleared by ID impression, plan, and exam edited and reviewed in detail care discussed with RN Subjective Allergies: Coded Allergies: CEFEPIME (Unverified Allergy, Unknown, 11/03/17) LEVOFLOXACIN (Unverified Allergy, Unknown, 11/03/17) PENICILLINS (Unverified Allergy, Unknown, 11/03/17) Subjective care noted overnight no distress but on isolation on oxygen but overall comfortable Objective Last 24 Hour Vital Signs Date Time Temp Pulse Resp B/P (MAP) Pulse Ox O2 Delivery O2 Flow Rate FiO2 10/20/19 09:26 98 135/93 10/20/19 08:00 Nasal Cannula 2.0 10/20/19 08:00 97.5 98 20 135/93 (107) 95 10/20/19 07:40 88 10/20/19 04:00 Nasal Cannula 2.0 10/20/19 04:00 97.8 104 20 147/76 (99) 97 10/20/19 04:00 86 10/20/19 00:00 Nasal Cannula 2.0 10/20/19 00:00 97.4 101 20 148/72 (97) 99 10/20/19 00:00 96 10/19/19 21:28 106 149/112 10/19/19 20:00 97.7 106 20 149/84 (105) 98 10/19/19 20:00 Nasal Cannula 2.0 10/19/19 20:00 98 10/19/19 19:48 96 Nasal Cannula 2.0 28 10/19/19 19:48 98 18 96 Nasal Cannula 2.0 28 10/19/19 16:04 Nasal Cannula 2.0 10/19/19 16:00 97.8 102 20 135/65 (88) 99 10/19/19 16:00 102 10/19/19 12:00 96 10/19/19 12:00 97.7 96 18 139/82 (101) 99 10/19/19 12:00 Nasal Cannula 2.0 Intake and Output 10/19/19 10/20/19 19:00 07:00 Intake Total 350 ml Output Total 10 ml Balance 340 ml Intake Oral 350 ml Stool Total 10 ml # Voids 1 3 Objective WDWN NAD clear breath sounds bilaterally without rhonchi or wheeze [id number] without MRG NABS nontender no HSM no CCE nonfocal Microbiology Date/Time Source Procedure Growth Status 10/17/19 11:45 Nasopharynx Coronavirus COVID-19 PCR (ABDIAZIZ) - Final Complete Current Medications Medications (Trade) Dose Ordered Sig/Saira Route PRN Reason Start Time Stop Time Status Last Admin Dose Admin Acetaminophen (Tylenol) 650 mg Q6H PRN ORAL Mild Pain/Temp > 100.5 10/10/19 23:30 11/09/19 23:29 10/19/19 10:50 Acetaminophen/ Hydrocodone Bitart ([place] 10/325) 1 tab Q4H PRN ORAL Pain 4-10 10/19/19 21:15 10/26/19 21:14 Albuterol/ Ipratropium (Combivent Respimat) 1 puff Q6H PRN INH Shortness of Breath 10/14/19 15:15 11/13/19 15:14 10/14/19 18:15 Ascorbic Acid (Vitamin C) 500 mg TWICE A DAY ORAL 10/13/19 15:00 11/12/19 14:59 10/20/19 09:26 Aspirin (ASA) 81 mg DAILY ORAL 10/11/19 09:00 11/25/19 08:59 10/20/19 09:26 Atorvastatin Calcium (Lipitor) 10 mg BEDTIME ORAL 10/11/19 21:00 01/09/20 20:59 10/19/19 21:28 Carvedilol (Coreg) 12.5 mg EVERY 12 HOURS ORAL 10/20/19 09:00 11/19/19 08:59 10/20/19 09:26 Cinacalcet (Sensipar) 30 mg DAILY ORAL 10/11/19 09:00 01/09/20 08:59 10/20/19 09:26 Duloxetine HCl (Cymbalta) 60 mg DAILY ORAL 10/15/19 09:00 01/09/20 08:59 10/20/19 09:26 Ferrous Sulfate (Feosol) 325 mg TID ORAL 10/11/19 09:00 01/09/20 08:59 10/20/19 09:26 Folic Acid (Folate) 1 mg DAILY ORAL 10/11/19 09:00 11/10/19 08:59 10/20/19 09:26 Guaifenesin (Mucinex ER) 600 mg TWICE A DAY ORAL 10/15/19 09:00 01/13/20 08:59 10/20/19 09:26 Guaifenesin (Robitussin) 100 mg Q4H PRN ORAL cough 10/10/19 23:30 01/08/20 23:29 10/11/19 20:32 Heparin Sodium (Porcine) (Heparin 5000 units/ml) 5,000 units EVERY 12 HOURS SUBQ 10/11/19 09:00 11/25/19 08:59 10/20/19 10:18 Lacosamide (Vimpat) 100 mg Q12HR ORAL 10/11/19 09:00 01/09/20 08:59 10/20/19 09:26 Lidocaine (Lidoderm 5% PATCH) 3 patch DAILY TDERMAL 10/11/19 09:00 01/09/20 08:59 10/20/19 09:27 Magnesium Hydroxide (Mom) 30 ml DAILY PRN ORAL Constipation 10/10/19 23:30 11/09/19 23:29 10/12/19 18:23 Pantoprazole (Protonix) 40 mg EVERY 12 HOURS ORAL 10/11/19 09:00 11/10/19 08:59 10/20/19 09:26 Pregabalin (Lyrica) 150 mg Q8HR ORAL 10/11/19 06:00 11/10/19 05:59 10/20/19 05:41 Promethazine HCl/ Codeine (Phenergan with Codeine) 5 ml Q4H PRN ORAL For Cough 10/10/19 23:30 11/09/19 23:29 10/19/19 17:03 Darrel Schuster MD Oct 20, 2019 11:17
[2019-10-20 12:00] VITALS: BP 124/73
--- NOTE | 2019-10-20 13:17 | NUR ---
ASE CARDIOLOGY TECHNICIAN: REVIEW SI: COVID-19 VIRUS DETECTED . PNA T 97.2 HR 98 RR 20 BP 124/73 SAT 95% NC/2L REPEAT COVID-19 VIRUS TEST POST TX PENDING IS: LACOSAMIDE PO Q12HR PHENERGAN 5MG PO Q4HR PRN COMBIVENT RESPIMAT INH Q6HR PRN GUAIFENESIN 100MG PO Q4HR PRN DROPLET ISOLATION STEP DOWN UNIT STATUS DCP: PATIENT IS FROM [facility]
[2019-10-20] MEDS: HYDROcodone/Acetamin 10/325 tab ORAL PRN ×2 (13:42→21:40)
--- NOTE | 2019-10-20 15:54 | General Progress Note ---
Assessment/Plan Problem List: (1) COPD with asthma ICD Codes: J44.9 - Chronic obstructive pulmonary disease, unspecified SNOMED: 83309899066378453 (2) Seizure ICD Codes: R56.9 - Unspecified convulsions SNOMED: 12801779 (3) CVA (cerebral vascular accident) ICD Codes: I63.9 - Cerebral infarction, unspecified SNOMED: 444299206 (4) Functional quadriplegia ICD Codes: R53.2 - Functional quadriplegia SNOMED: 966908039764100 (5) COVID-19 ICD Codes: U07.1 - COVID-19 SNOMED: 991364776 Status: stable Assessment/Plan: Continue current treatment. Supplemental oxygen and breathing treatments if needed. Continue pain regimen. Continue cough treatment. ID follow up Subjective ROS Limited/Unobtainable: No Constitutional: Reports: malaise, weakness HEENT: Reports: no symptoms Cardiovascular: Reports: no symptoms Respiratory: Reports: cough, shortness of breath Gastrointestinal/Abdominal: Reports: no symptoms Genitourinary: Reports: no symptoms Neurologic/Psychiatric: Reports: no symptoms Endocrine: Reports: no symptoms Hematologic/Lymphatic: Reports: no symptoms Allergies: Coded Allergies: CEFEPIME (Unverified Allergy, Unknown, 11/03/17) LEVOFLOXACIN (Unverified Allergy, Unknown, 11/03/17) PENICILLINS (Unverified Allergy, Unknown, 11/03/17) All Systems: reviewed and negative except above Subjective no new complaints. no chest pain. stable sob. remains on o2. still covid positive. Objective Last 24 Hour Vital Signs Date Time Temp Pulse Resp B/P (MAP) Pulse Ox O2 Delivery O2 Flow Rate FiO2 10/20/19 14:00 Nasal Cannula 2.0 10/20/19 12:00 Nasal Cannula 2.0 10/20/19 12:00 97.2 98 20 124/73 (90) 96 10/20/19 11:54 93 10/20/19 09:26 98 135/93 10/20/19 08:10 98 18 95 Nasal Cannula 2.0 28 10/20/19 08:10 95 Nasal Cannula 2.0 28 10/20/19 08:00 Nasal Cannula 2.0 10/20/19 08:00 97.5 98 20 135/93 (107) 95 4/7/20 07:40 88 10/20/19 04:00 Nasal Cannula 2.0 10/20/19 04:00 97.8 104 20 147/76 (99) 97 10/20/19 04:00 86 10/20/19 00:00 Nasal Cannula 2.0 10/20/19 00:00 97.4 101 20 148/72 (97) 99 10/20/19 00:00 96 10/19/19 21:28 106 149/112 10/19/19 20:00 97.7 106 20 149/84 (105) 98 10/19/19 20:00 Nasal Cannula 2.0 10/19/19 20:00 98 10/19/19 19:48 96 Nasal Cannula 2.0 28 10/19/19 19:48 98 18 96 Nasal Cannula 2.0 28 10/19/19 16:04 Nasal Cannula 2.0 10/19/19 16:00 97.8 102 20 135/65 (88) 99 10/19/19 16:00 102 Intake and Output 10/19/19 10/20/19 19:00 07:00 Intake Total 350 ml Output Total 10 ml Balance 340 ml Intake Oral 350 ml Stool Total 10 ml # Voids 1 3 Height (Feet): 5 Height (Inches): 5.00 Weight (Pounds): 404 Objective General Appearance: WD/WN, alert Neck: supple Cardiovascular: normal rate Respiratory/Chest: chest wall non-tender, lungs clear, normal breath sounds, no respiratory distress Abdomen: normal bowel sounds, non tender, soft, no organomegaly Edema: no edema noted Arm (L), no edema noted Arm (R), no edema noted Leg (L), no edema noted Leg (R), no edema noted Pedal (L), no edema noted Pedal (R), no edema noted Generalized Kenroy Mcgrath MD Oct 20, 2019 15:54
[2019-10-20 16:00] VITALS: BP 146/74
--- NOTE | 2019-10-20 19:20 | NUR ---
HAND-OFF: Report given to MARKUS Hackett.
--- NOTE | 2019-10-20 19:21 | NUR ---
NURSE NOTES: Received pt from MARKUS Gore. Pt is awake and resting in bed in no acute distress, with HOB elevated, on nasal cannula. Iv site intact. Bed locked in lowest position bed alarm on, call light within reach. Rectal tube draining. Will continue with plan of care.
[2019-10-20 20:00] VITALS: BP 118/67
[2019-10-21] VITALS: BP 128/56
--- NOTE | 2019-10-21 03:44 | Progress Note ---
DATE: 10/20/2019 CARDIOLOGY PROGRESS NOTE SUBJECTIVE: The patient remains on low flow oxygen. Continues to have COVID positive swabs. She has minimal shortness of breath and congestion. Blood pressure is well controlled. Monitored rhythm sinus with rare episodes of tachycardia. PHYSICAL EXAMINATION: CARDIAC: Regular rhythm and rate. Normal S1, S2. LUNGS: Few rhonchi. EXTREMITIES: No edema. IMPRESSION: 1. Hypokalemia. 2. Hypomagnesemia. 3. COVID positive. 4. Hypertensive heart disease. 5. COPD. 6. Hypoxia, improving. PLAN: 1. Recheck laboratories, 2. Replace lytes as needed. 3. Isolation precautions. 4. Titrate antihypertensive regimen as needed. Carlos Eduardo Andino M.D. DR: JOSE JUAN JOB#: [id number] CC:
[2019-10-21] MEDS: Lyrica 75mg cap ORAL SCH ×3 (06:00→22:39)
[2019-10-21 06:41] LABS: BASOPHILS % (AUTO) 0.8 % (0.0-2.0); EOSINOPHILS % (AUTO) 2.1 % (0.0-3.0); HEMATOCRIT 39.4 % (37.0-47.0); HEMOGLOBIN 12.6 G/DL (12.0-16.0); LYMPHOCYTES % (AUTO) 35.9 % (20.0-45.0); MEAN CORPUSCULAR VOLUME 89 FL (80-99); MONOCYTES % (AUTO) 11.8 % (1.0-10.0); NEUTROPHILS % (AUTO) 49.4 % (45.0-75.0); PLATELET COUNT 339 K/UL (150-450); RED BLOOD COUNT 4.42 M/UL (4.20-5.40); RED CELL DISTRIBUTION WIDTH 15.5 % (11.6-14.8); WHITE BLOOD COUNT 3.9 K/UL (4.8-10.8)
--- NOTE | 2019-10-21 07:08 | NUR ---
HAND-OFF: Report given to MARKUS Ortega. Pt is awake and resting in bed in no acute distress, nasal cannula on 4 L with HOB elevated. Iv site intact. Bed locked in lowest position bed alarm on, call light within reach. Rectal tube intact and patent. Endorsed plan of care.
[2019-10-21 07:33] LABS: ALANINE AMINOTRANSFERASE 25 U/L (12-78); ALBUMIN 2.7 G/DL (3.4-5.0); ALBUMIN/GLOBULIN RATIO 0.6 (1.0-2.7); ALKALINE PHOSPHATASE 65 U/L (46-116); ANION GAP 4 mmol/L (5-15); ASPARTATE AMINO TRANSFERASE 27 U/L (15-37); BILIRUBIN,TOTAL 0.5 MG/DL (0.2-1.0); BLOOD UREA NITROGEN 5 mg/dL (7-18); CALCIUM 8.2 MG/DL (8.5-10.1); CARBON DIOXIDE 38 MMOL/L (21-32); CHLORIDE 100 MMOL/L (98-107); CREATININE 0.7 MG/DL (0.55-1.30); POTASSIUM 3.4 MMOL/L (3.5-5.1); SODIUM 142 MMOL/L (136-145)
[2019-10-21 08:00] VITALS: BP 133/77
[2019-10-21] MEDS: Heparin 5000 units/ml inj SUBQ SCH ×2 (09:30→20:55)
[2019-10-21] MEDS: Aspirin Baby 81mg ORAL SCH (09:39)
[2019-10-21] MEDS: Ascorbic Acid 500mg tab ORAL SCH ×2 (09:40→18:00)
[2019-10-21] MEDS: Sensipar 30mg Tab ORAL SCH (09:40)
[2019-10-21] MEDS: Carvedilol 6.25mg Tab ORAL SCH ×2 (09:40→20:54)
[2019-10-21] MEDS: guaiFENesin ER 600mg tab ORAL SCH ×2 (09:41→18:00)
[2019-10-21] MEDS: Lacosamide 50mg tablet ORAL SCH ×2 (09:41→20:54)
[2019-10-21] MEDS: HYDROcodone/Acetamin 10/325 tab ORAL PRN ×2 (09:52→20:55)
--- NOTE | 2019-10-21 10:10 | Pulmonology Progress Note ---
Assessment/Plan Assessment/Plan IMPRESSION: Pulmonary infection, asthma, wheezing, history of VRE, COVID positive, stroke. PLAN care as is monitor for change ID follow up reviewed off antibiotics maintain isolation DVT prophylaxis dc planning once cleared currently overall with low flow oxygen no recent cxr impression, plan, and exam edited and reviewed in detail care discussed with RN Subjective Allergies: Coded Allergies: CEFEPIME (Unverified Allergy, Unknown, 11/03/17) LEVOFLOXACIN (Unverified Allergy, Unknown, 11/03/17) PENICILLINS (Unverified Allergy, Unknown, 11/03/17) Subjective care noted overnight d/w ID no distress but on isolation on oxygen Objective Last 24 Hour Vital Signs Date Time Temp Pulse Resp B/P (MAP) Pulse Ox O2 Delivery O2 Flow Rate FiO2 10/21/19 09:40 99 144/77 10/21/19 08:00 98.8 81 20 133/77 (95) 99 10/21/19 07:00 95 Nasal Cannula 2.0 28 10/21/19 07:00 83 20 95 Nasal Cannula 2.0 28 10/21/19 04:00 Nasal Cannula 2.0 10/21/19 04:00 80 10/21/19 00:00 97.9 83 20 128/56 (80) 96 10/21/19 00:00 Nasal Cannula 2.0 10/20/19 23:28 83 10/20/19 21:00 98 118/96 10/20/19 20:00 Nasal Cannula 2.0 10/20/19 20:00 97.9 90 20 118/67 (84) 95 10/20/19 20:00 90 10/20/19 19:20 95 Nasal Cannula 2.0 28 10/20/19 19:20 74 20 99 Nasal Cannula 2.0 28 10/20/19 16:00 Nasal Cannula 2.0 10/20/19 16:00 98.2 101 20 146/74 (98) 96 10/20/19 15:33 95 10/20/19 14:00 Nasal Cannula 2.0 10/20/19 12:00 Nasal Cannula 2.0 10/20/19 12:00 97.2 98 20 124/73 (90) 96 10/20/19 11:54 93 Intake and Output 10/20/19 10/21/19 19:00 07:00 Intake Total 240 ml 150 ml Output Total 10 ml 10 ml Balance 230 ml 140 ml Intake Oral 240 ml 150 ml Stool Total 10 ml 10 ml # Voids 1 2 Objective WDWN NAD clear breath sounds bilaterally without rhonchi or wheeze [id number] without MRG NABS nontender no HSM no CCE nonfocal reviewed and edited Microbiology Date/Time Source Procedure Growth Status 10/19/19 15:00 Nasopharynx Coronavirus COVID-19 PCR (ABDIAZIZ) - Final Complete Laboratory Tests 10/21/19 05:30: White Blood Count 3.9L, Red Blood Count 4.42, Hemoglobin 12.6, Hematocrit 39.4, Mean Corpuscular Volume 89, Mean Corpuscular Hemoglobin 28.5, Mean Corpuscular Hemoglobin Concent 32.0, Red Cell Distribution Width 15.5H, Platelet Count 339, Mean Platelet Volume 6.0L, Neutrophils (%) (Auto) 49.4, Lymphocytes (%) (Auto) 35.9, Monocytes (%) (Auto) 11.8H, Eosinophils (%) (Auto) 2.1, Basophils (%) ( Auto) 0.8, Sodium Level 142, Potassium Level 3.4L, Chloride Level 100, Carbon Dioxide Level 38H, Anion Gap 4L, Blood Urea Nitrogen 5L, Creatinine 0.7, Estimat Glomerular Filtration Rate > 60, Glucose Level 114H, Calcium Level 8.2L , Magnesium Level 2.0, Total Bilirubin 0.5, Aspartate Amino Transf (AST/SGOT) 27 , Alanine Aminotransferase (ALT/SGPT) 25, Alkaline Phosphatase 65, Pro-B-Type Natriuretic Peptide 62, Total Protein 7.1, Albumin 2.7L, Globulin 4.4, Albumin/ Globulin Ratio 0.6L Current Medications Medications (Trade) Dose Ordered Sig/Saira Route PRN Reason Start Time Stop Time Status Last Admin Dose Admin Acetaminophen (Tylenol) 650 mg Q6H PRN ORAL Mild Pain/Temp > 100.5 10/10/19 23:30 11/09/19 23:29 10/19/19 10:50 Acetaminophen/ Hydrocodone Bitart ([place] [address]) 1 tab Q4H PRN ORAL Pain 4-10 10/19/19 21:15 10/26/19 21:14 10/21/19 09:52 Albuterol/ Ipratropium (Combivent Respimat) 1 puff Q6H PRN INH Shortness of Breath 10/14/19 15:15 11/13/19 15:14 10/14/19 18:15 Ascorbic Acid (Vitamin C) 500 mg TWICE A DAY ORAL 10/13/19 15:00 11/12/19 14:59 10/21/19 09:40 Aspirin (ASA) 81 mg DAILY ORAL 10/11/19 09:00 11/25/19 08:59 10/21/19 09:39 Atorvastatin Calcium (Lipitor) 10 mg BEDTIME ORAL 10/11/19 21:00 01/09/20 20:59 10/20/19 21:00 Carvedilol (Coreg) 12.5 mg EVERY 12 HOURS ORAL 10/20/19 09:00 11/19/19 08:59 10/21/19 09:40 Cinacalcet (Sensipar) 30 mg DAILY ORAL 10/11/19 09:00 01/09/20 08:59 10/21/19 09:40 Duloxetine HCl (Cymbalta) 60 mg DAILY ORAL 10/15/19 09:00 01/09/20 08:59 10/21/19 09:40 Ferrous Sulfate (Feosol) 325 mg TID ORAL 10/11/19 09:00 01/09/20 08:59 10/21/19 09:39 Folic Acid (Folate) 1 mg DAILY ORAL 10/11/19 09:00 11/10/19 08:59 10/21/19 09:40 Guaifenesin (Mucinex ER) 600 mg TWICE A DAY ORAL 10/15/19 09:00 01/13/20 08:59 10/21/19 09:41 Guaifenesin (Robitussin) 100 mg Q4H PRN ORAL cough 10/10/19 23:30 01/08/20 23:29 10/11/19 20:32 Heparin Sodium (Porcine) (Heparin 5000 units/ml) 5,000 units EVERY 12 HOURS SUBQ 10/11/19 09:00 11/25/19 08:59 10/21/19 09:30 Lacosamide (Vimpat) 100 mg Q12HR ORAL 10/11/19 09:00 01/09/20 08:59 10/21/19 09:41 Lidocaine (Lidoderm 5% PATCH) 3 patch DAILY TDERMAL 10/11/19 09:00 01/09/20 08:59 10/21/19 09:39 Magnesium Hydroxide (Mom) 30 ml DAILY PRN ORAL Constipation 10/10/19 23:30 11/09/19 23:29 10/12/19 18:23 Pantoprazole (Protonix) 40 mg EVERY 12 HOURS ORAL 10/11/19 09:00 11/10/19 08:59 10/21/19 09:40 Pregabalin (Lyrica) 150 mg Q8HR ORAL 10/11/19 06:00 11/10/19 05:59 10/20/19 13:37 Promethazine HCl/ Codeine (Phenergan with Codeine) 5 ml Q4H PRN ORAL For Cough 10/10/19 23:30 11/09/19 23:29 10/19/19 17:03 Darrel Schuster MD Oct 21, 2019 10:10
--- NOTE | 2019-10-21 11:16 | Infectious Diseases Prog Note ---
Assessment/Plan Assessment/Plan antibiotics : none A 1. covid 19 pneumonia s/p rx positive tests on 3.28.20, 4.3.20, 4.4.20, 4.6.20 2. COPD 3. asthma 4. CVA 5. seizures P 1. continue off antibiotics 2. continue isolation Subjective Constitutional: Denies: fever, chills Respiratory: Denies: shortness of breath, dry cough Gastrointestinal/Abdominal: Denies: nausea, vomiting, diarrhea Musculoskeletal: Reports: pain - mild Allergies: Coded Allergies: CEFEPIME (Unverified Allergy, Unknown, 11/03/17) LEVOFLOXACIN (Unverified Allergy, Unknown, 11/03/17) PENICILLINS (Unverified Allergy, Unknown, 11/03/17) Objective Vital Signs Last 24 Hour Vital Signs Date Time Temp Pulse Resp B/P (MAP) Pulse Ox O2 Delivery O2 Flow Rate FiO2 10/21/19 10:40 75 10/21/19 09:40 99 144/77 10/21/19 08:00 Nasal Cannula 2.0 10/21/19 08:00 98.8 81 20 133/77 (95) 99 10/21/19 07:00 95 Nasal Cannula 2.0 28 10/21/19 07:00 83 20 95 Nasal Cannula 2.0 28 10/21/19 04:00 Nasal Cannula 2.0 10/21/19 04:00 80 10/21/19 00:00 97.9 83 20 128/56 (80) 96 10/21/19 00:00 Nasal Cannula 2.0 10/20/19 23:28 83 10/20/19 21:00 98 118/96 10/20/19 20:00 Nasal Cannula 2.0 10/20/19 20:00 97.9 90 20 118/67 (84) 95 10/20/19 20:00 90 10/20/19 19:20 95 Nasal Cannula 2.0 28 10/20/19 19:20 74 20 99 Nasal Cannula 2.0 28 10/20/19 16:00 Nasal Cannula 2.0 10/20/19 16:00 98.2 101 20 146/74 (98) 96 10/20/19 15:33 95 10/20/19 14:00 Nasal Cannula 2.0 10/20/19 12:00 Nasal Cannula 2.0 10/20/19 12:00 97.2 98 20 124/73 (90) 96 10/20/19 11:54 93 Height (Feet): 5 Height (Inches): 5.00 Weight (Pounds): 385 Respiratory/Chest: lungs clear Cardiovascular: normal rate, regular rhythm, no gallop/murmur Abdomen: soft, non tender Extremities: no edema Microbiology Date/Time Source Procedure Growth Status 10/19/19 15:00 Nasopharynx Coronavirus COVID-19 PCR (ABDIAZIZ) - Final Complete Laboratory Tests Test 10/21/19 05:30 White Blood Count 3.9 K/UL (4.8-10.8) L Red Blood Count 4.42 M/UL (4.20-5.40) Hemoglobin 12.6 G/DL (12.0-16.0) Hematocrit 39.4 % (37.0-47.0) Mean Corpuscular Volume 89 FL (80-99) Mean Corpuscular Hemoglobin 28.5 PG (27.0-31.0) Mean Corpuscular Hemoglobin Concent 32.0 G/DL (32.0-36.0) Red Cell Distribution Width 15.5 % (11.6-14.8) H Platelet Count 339 K/UL (150-450) Mean Platelet Volume 6.0 FL (6.5-10.1) L Neutrophils (%) (Auto) 49.4 % (45.0-75.0) Lymphocytes (%) (Auto) 35.9 % (20.0-45.0) Monocytes (%) (Auto) 11.8 % (1.0-10.0) H Eosinophils (%) (Auto) 2.1 % (0.0-3.0) Basophils (%) (Auto) 0.8 % (0.0-2.0) Sodium Level 142 MMOL/L (136-145) Potassium Level 3.4 MMOL/L (3.5-5.1) L Chloride Level 100 MMOL/L (98-107) Carbon Dioxide Level 38 MMOL/L (21-32) H Anion Gap 4 mmol/L (5-15) L Blood Urea Nitrogen 5 mg/dL (7-18) L Creatinine 0.7 MG/DL (0.55-1.30) Estimat Glomerular Filtration Rate > 60 mL/min (>60) Glucose Level 114 MG/DL (74-106) H Calcium Level 8.2 MG/DL (8.5-10.1) L Magnesium Level 2.0 MG/DL (1.8-2.4) Total Bilirubin 0.5 MG/DL (0.2-1.0) Aspartate Amino Transf (AST/SGOT) 27 U/L (15-37) Alanine Aminotransferase (ALT/SGPT) 25 U/L (12-78) Alkaline Phosphatase 65 U/L (46-116) Pro-B-Type Natriuretic Peptide 62 pg/mL (0-125) Total Protein 7.1 G/DL (6.4-8.2) Albumin 2.7 G/DL (3.4-5.0) L Globulin 4.4 g/dL Albumin/Globulin Ratio 0.6 (1.0-2.7) L Current Medications Medications (Trade) Dose Ordered Sig/Saira Route PRN Reason Start Time Stop Time Status Last Admin Dose Admin Acetaminophen (Tylenol) 650 mg Q6H PRN ORAL Mild Pain/Temp > 100.5 10/10/19 23:30 11/09/19 23:29 10/19/19 10:50 Acetaminophen/ Hydrocodone Bitart (Anthony 10/325) 1 tab Q4H PRN ORAL Pain 4-10 10/19/19 21:15 10/26/19 21:14 10/21/19 09:52 Albuterol/ Ipratropium (Combivent Respimat) 1 puff Q6H PRN INH Shortness of Breath 10/14/19 15:15 11/13/19 15:14 10/14/19 18:15 Ascorbic Acid (Vitamin C) 500 mg TWICE A DAY ORAL 10/13/19 15:00 11/12/19 14:59 10/21/19 09:40 Aspirin (ASA) 81 mg DAILY ORAL 10/11/19 09:00 11/25/19 08:59 10/21/19 09:39 Atorvastatin Calcium (Lipitor) 10 mg BEDTIME ORAL 10/11/19 21:00 01/09/20 20:59 10/20/19 21:00 Carvedilol (Coreg) 12.5 mg EVERY 12 HOURS ORAL 10/20/19 09:00 11/19/19 08:59 10/21/19 09:40 Cinacalcet (Sensipar) 30 mg DAILY ORAL 10/11/19 09:00 01/09/20 08:59 10/21/19 09:40 Duloxetine HCl (Cymbalta) 60 mg DAILY ORAL 10/15/19 09:00 01/09/20 08:59 10/21/19 09:40 Ferrous Sulfate (Feosol) 325 mg TID ORAL 10/11/19 09:00 01/09/20 08:59 10/21/19 09:39 Folic Acid (Folate) 1 mg DAILY ORAL 10/11/19 09:00 11/10/19 08:59 10/21/19 09:40 Guaifenesin (Mucinex ER) 600 mg TWICE A DAY ORAL 10/15/19 09:00 01/13/20 08:59 10/21/19 09:41 Guaifenesin (Robitussin) 100 mg Q4H PRN ORAL cough 10/10/19 23:30 01/08/20 23:29 10/11/19 20:32 Heparin Sodium (Porcine) (Heparin 5000 units/ml) 5,000 units EVERY 12 HOURS SUBQ 10/11/19 09:00 11/25/19 08:59 10/21/19 09:30 Lacosamide (Vimpat) 100 mg Q12HR ORAL 10/11/19 09:00 01/09/20 08:59 10/21/19 09:41 Lidocaine (Lidoderm 5% PATCH) 3 patch DAILY TDERMAL 10/11/19 09:00 01/09/20 08:59 10/21/19 09:39 Magnesium Hydroxide (Mom) 30 ml DAILY PRN ORAL Constipation 10/10/19 23:30 11/09/19 23:29 10/12/19 18:23 Pantoprazole (Protonix) 40 mg EVERY 12 HOURS ORAL 10/11/19 09:00 11/10/19 08:59 10/21/19 09:40 Pregabalin (Lyrica) 150 mg Q8HR ORAL 10/11/19 06:00 11/10/19 05:59 10/20/19 13:37 Promethazine HCl/ Codeine (Phenergan with Codeine) 5 ml Q4H PRN ORAL For Cough 10/10/19 23:30 11/09/19 23:29 4/6/20 17:03 Huma Serna MD Oct 21, 2019 11:15
[2019-10-21 12:00] VITALS: BP 145/69
--- NOTE | 2019-10-21 14:21 | NUR ---
HEAD TRIMMER: REVIEW 10/21/19 SI: COVID-19 VIRUS DETECTED X4. PNA . HYPOKALEMIA 97.4 91 21 145/69 99% ON NC/2L WBC 3.9 K+3.4 CA+8.2 ALB 2.7 CO2-38 IS: PHENERGAN PO Q4HR PRN COMBIVENT RESPIMAT INH Q6HR PRN MUCINEX ER PO BID ROBITUSSIN Q4HR/PRN VIMPAT PO BID HEPARIN SQ BID PROTONIX PO BID ASA PO QD \:STEP DOWN UNIT STATUS DCP: [facility] IS [facility] PLAN: RECHECK LABS CONT ISOLATION TITRATE ANTIHYPERTENSIVE REGIMEN
[2019-10-21 16:00] VITALS: BP 126/73
--- NOTE | 2019-10-21 16:00 | NUR ---
NURSE NOTES: Dr. Andino in the unit. Informed regarding today's lab result. Low Potassium level. said that he'll check patient and will order replacement.
[2019-10-21] MEDS ORDERED: Guaifenesin/DM 10ml syrup ORAL PRN (19:15)
--- NOTE | 2019-10-21 19:15 | NUR ---
NURSE NOTES: Pt report received from HALI APARICIO. Pt remains stable. pt is alert and oriented times 3, able to respond yes/ no to simple questions. pt is on 2 L NC, able to sat at 98%, no acute resp distress noted. pt is on air sampling and monitoring showing NSR, no acute cardiac distress noted. pt bed is low, locked, armed, call light within reach, bed rails up times 3. will follow plan of care.
--- NOTE | 2019-10-21 19:27 | NUR ---
HAND-OFF: Report given to Kush Landaverde RN.
[2019-10-21 20:00] VITALS: BP 128/67
--- NOTE | 2019-10-21 20:01 | General Progress Note ---
Assessment/Plan Problem List: (1) COPD with asthma ICD Codes: J44.9 - Chronic obstructive pulmonary disease, unspecified SNOMED: 15106280596823647 (2) Seizure ICD Codes: R56.9 - Unspecified convulsions SNOMED: 90024616 (3) CVA (cerebral vascular accident) ICD Codes: I63.9 - Cerebral infarction, unspecified SNOMED: 197441369 (4) Functional quadriplegia ICD Codes: R53.2 - Functional quadriplegia SNOMED: 140911020079699 (5) COVID-19 ICD Codes: U07.1 - COVID-19 SNOMED: 346100704 Status: stable Assessment/Plan: Continue current treatment. Supplemental oxygen and breathing treatments if needed. Continue pain regimen. Continue cough treatment. ID follow up Subjective ROS Limited/Unobtainable: No Constitutional: Reports: malaise, weakness HEENT: Reports: no symptoms Cardiovascular: Reports: no symptoms Respiratory: Reports: cough Gastrointestinal/Abdominal: Reports: no symptoms Genitourinary: Reports: no symptoms Neurologic/Psychiatric: Reports: anxiety, depressed Endocrine: Reports: no symptoms Hematologic/Lymphatic: Reports: no symptoms Allergies: Coded Allergies: CEFEPIME (Unverified Allergy, Unknown, 11/03/17) LEVOFLOXACIN (Unverified Allergy, Unknown, 11/03/17) PENICILLINS (Unverified Allergy, Unknown, 11/03/17) All Systems: reviewed and negative except above Subjective no new complaints. no chest pain. stable sob. remains on o2. still covid positive. still with some cough. Objective Last 24 Hour Vital Signs Date Time Temp Pulse Resp B/P (MAP) Pulse Ox O2 Delivery O2 Flow Rate FiO2 10/21/19 19:36 85 20 96 Nasal Cannula 2.0 28 10/21/19 19:36 96 Nasal Cannula 2.0 28 10/21/19 16:00 Nasal Cannula 2.0 10/21/19 16:00 97.5 85 22 126/73 (90) 95 10/21/19 15:22 80 10/21/19 12:31 83 10/21/19 12:00 Nasal Cannula 2.0 10/21/19 12:00 97.4 91 21 145/69 (94) 99 10/21/19 10:40 75 10/21/19 09:40 99 144/77 10/21/19 08:00 Nasal Cannula 2.0 10/21/19 08:00 98.8 81 20 133/77 (95) 99 10/21/19 07:00 95 Nasal Cannula 2.0 28 10/21/19 07:00 83 20 95 Nasal Cannula 2.0 28 10/21/19 04:00 Nasal Cannula 2.0 10/21/19 04:00 80 10/21/19 00:00 97.9 83 20 128/56 (80) 96 10/21/19 00:00 Nasal Cannula 2.0 10/20/19 23:28 83 10/20/19 21:00 98 118/96 Intake and Output 10/20/19 10/21/19 19:00 07:00 Intake Total 240 ml 150 ml Output Total 10 ml 10 ml Balance 230 ml 140 ml Intake Oral 240 ml 150 ml Stool Total 10 ml 10 ml # Voids 1 2 Laboratory Tests 10/21/19 05:30: White Blood Count 3.9L, Red Blood Count 4.42, Hemoglobin 12.6, Hematocrit 39.4, Mean Corpuscular Volume 89, Mean Corpuscular Hemoglobin 28.5, Mean Corpuscular Hemoglobin Concent 32.0, Red Cell Distribution Width 15.5H, Platelet Count 339, Mean Platelet Volume 6.0L, Neutrophils (%) (Auto) 49.4, Lymphocytes (%) (Auto) 35.9, Monocytes (%) (Auto) 11.8H, Eosinophils (%) (Auto) 2.1, Basophils (%) ( Auto) 0.8, Sodium Level 142, Potassium Level 3.4L, Chloride Level 100, Carbon Dioxide Level 38H, Anion Gap 4L, Blood Urea Nitrogen 5L, Creatinine 0.7, Estimat Glomerular Filtration Rate > 60, Glucose Level 114H, Calcium Level 8.2L , Magnesium Level 2.0, Total Bilirubin 0.5, Aspartate Amino Transf (AST/SGOT) 27 , Alanine Aminotransferase (ALT/SGPT) 25, Alkaline Phosphatase 65, Pro-B-Type Natriuretic Peptide 62, Total Protein 7.1, Albumin 2.7L, Globulin 4.4, Albumin/ Globulin Ratio 0.6L Height (Feet): 5 Height (Inches): 5.00 Weight (Pounds): 385 Objective General Appearance: WD/WN, alert Neck: supple Cardiovascular: normal rate Respiratory/Chest: chest wall non-tender, lungs clear, normal breath sounds, no respiratory distress Abdomen: normal bowel sounds, non tender, soft, no organomegaly Edema: no edema noted Arm (L), no edema noted Arm (R), no edema noted Leg (L), no edema noted Leg (R), no edema noted Pedal (L), no edema noted Pedal (R), no edema noted Generalized Kenroy Mcgrath MD Oct 21, 2019 20:01
[2019-10-21] MEDS: clonazePAM 0.5mg tab ORAL SCH (20:53)
[2019-10-22] VITALS: BP 136/75
--- NOTE | 2019-10-22 03:15 | Progress Note ---
DATE: 10/21/2019 CARDIOLOGY PROGRESS NOTE SUBJECTIVE: Patient remains COVID positive. Some shortness of breath and congestion. Minimal secretions. PHYSICAL EXAMINATION: VITAL SIGNS: Oxygen saturation 95% to 96% O2 saturation on 2 liters, blood pressure 126/73, heart rate 85, respirations 22. LUNGS: Few rhonchi. CARDIAC: Regular rhythm and rate. Normal S1, S2. Sinus rhythm. EXTREMITIES: No edema. IMPRESSION: 1. Recovering COVID-19 pneumonia 2. Stable cardiac rhythm. 3. COPD with no active bronchospasm. PLAN: 1. Plan of care in place. 2. We will continue to follow as needed. 3. May discontinue cardiac monitoring. Carlos Eduardo Andino M.D. DR: EDU JOB#: [id number] CC:
[2019-10-22 04:00] VITALS: BP 140/76
[2019-10-22] MEDS: HYDROcodone/Acetamin 10/325 tab ORAL PRN ×2 (04:42→09:18)
[2019-10-22] MEDS: Lyrica 75mg cap ORAL SCH ×3 (06:00→21:17)
--- NOTE | 2019-10-22 07:30 | NUR ---
HAND-OFF: Report given to AGUILA APARICIO. Pt remains stable.
[2019-10-22 08:00] VITALS: BP 121/57
[2019-10-22] MEDS: Lacosamide 50mg tablet ORAL SCH ×2 (09:18→21:18)
[2019-10-22] MEDS: Sensipar 30mg Tab ORAL SCH (09:19)
[2019-10-22] MEDS: Aspirin Baby 81mg ORAL SCH (09:19)
[2019-10-22] MEDS: Ascorbic Acid 500mg tab ORAL SCH ×2 (09:19→18:49)
[2019-10-22] MEDS: guaiFENesin ER 600mg tab ORAL SCH ×2 (09:19→18:49)
[2019-10-22] MEDS: Carvedilol 6.25mg Tab ORAL SCH ×2 (09:19→22:10)
[2019-10-22] MEDS: Heparin 5000 units/ml inj SUBQ SCH ×2 (09:22→21:10)
--- NOTE | 2019-10-22 10:09 | Infectious Diseases Prog Note ---
Assessment/Plan Assessment/Plan A 1. COVID 19 pneumonia - Tests are positive on 10/09, 10/15 , 10/16 & 10/18 2. COPD 3. asthma 4. CVA 5. seizures 6. Hypkalemia P 1. repeat COVID19 tests 2. continue isolation Subjective ROS Limited/Unobtainable: Yes Constitutional: Denies: fever Allergies: Coded Allergies: CEFEPIME (Unverified Allergy, Unknown, 11/03/17) LEVOFLOXACIN (Unverified Allergy, Unknown, 11/03/17) PENICILLINS (Unverified Allergy, Unknown, 11/03/17) Objective Vital Signs Last 24 Hour Vital Signs Date Time Temp Pulse Resp B/P (MAP) Pulse Ox O2 Delivery O2 Flow Rate FiO2 10/22/19 09:48 97.2 10/22/19 09:19 94 121/57 10/22/19 08:00 97.2 94 20 121/57 (78) 98 10/22/19 08:00 Nasal Cannula 2.0 10/22/19 07:42 94 10/22/19 04:00 Nasal Cannula 2.0 10/22/19 04:00 97.8 82 20 140/76 (97) 98 10/22/19 03:36 102 10/22/19 00:00 98.1 91 23 136/75 (95) 97 10/22/19 00:00 Nasal Cannula 2.0 10/21/19 23:25 81 10/21/19 20:54 85 146/56 10/21/19 20:00 97.6 82 22 128/67 (87) 97 10/21/19 20:00 Nasal Cannula 2.0 10/21/19 19:36 85 20 96 Nasal Cannula 2.0 28 10/21/19 19:36 96 Nasal Cannula 2.0 28 10/21/19 19:02 88 10/21/19 16:00 Nasal Cannula 2.0 10/21/19 16:00 97.5 85 22 126/73 (90) 95 10/21/19 15:22 80 10/21/19 12:31 83 10/21/19 12:00 Nasal Cannula 2.0 10/21/19 12:00 97.4 91 21 145/69 (94) 99 10/21/19 10:40 75 Height (Feet): 5 Height (Inches): 5.00 Weight (Pounds): 385 General Appearance: other - obese HEENT: mucous membranes moist Respiratory/Chest: decreased breath sounds Cardiovascular: normal rate Abdomen: soft, non tender Extremities: no edema Neurologic/Psychiatric: alert, responsive Microbiology Date/Time Source Procedure Growth Status 10/19/19 15:00 Nasopharynx Coronavirus COVID-19 PCR (ABDIAZIZ) - Final Complete Current Medications Medications (Trade) Dose Ordered Sig/Saira Route PRN Reason Start Time Stop Time Status Last Admin Dose Admin Acetaminophen (Tylenol) 650 mg Q6H PRN ORAL Mild Pain/Temp > 100.5 10/10/19 23:30 11/09/19 23:29 10/19/19 10:50 Acetaminophen/ Hydrocodone Bitart (Fanshawe 10/325) 1 tab Q4H PRN ORAL Pain 4-10 10/19/19 21:15 10/26/19 21:14 10/22/19 09:18 Albuterol/ Ipratropium (Combivent Respimat) 1 puff Q6H PRN INH Shortness of Breath 10/14/19 15:15 11/13/19 15:14 10/14/19 18:15 Ascorbic Acid (Vitamin C) 500 mg TWICE A DAY ORAL 10/13/19 15:00 11/12/19 14:59 10/22/19 09:19 Aspirin (ASA) 81 mg DAILY ORAL 10/11/19 09:00 11/25/19 08:59 10/22/19 09:19 Atorvastatin Calcium (Lipitor) 10 mg BEDTIME ORAL 10/11/19 21:00 01/09/20 20:59 10/21/19 20:53 Carvedilol (Coreg) 12.5 mg EVERY 12 HOURS ORAL 10/20/19 09:00 11/19/19 08:59 10/22/19 09:19 Cinacalcet (Sensipar) 30 mg DAILY ORAL 10/11/19 09:00 01/09/20 08:59 10/22/19 09:19 Clonazepam (KlonoPIN) 0.5 mg BEDTIME ORAL 10/21/19 21:00 10/28/19 20:59 10/21/19 20:53 Duloxetine HCl (Cymbalta) 60 mg DAILY ORAL 10/15/19 09:00 01/09/20 08:59 10/22/19 09:19 Ferrous Sulfate (Feosol) 325 mg TID ORAL 10/11/19 09:00 01/09/20 08:59 10/22/19 09:19 Folic Acid (Folate) 1 mg DAILY ORAL 10/11/19 09:00 11/10/19 08:59 10/22/19 09:19 Guaifenesin (Mucinex ER) 600 mg TWICE A DAY ORAL 10/15/19 09:00 01/13/20 08:59 10/22/19 09:19 Guaifenesin (Robitussin) 100 mg Q4H PRN ORAL cough 10/10/19 23:30 01/08/20 23:29 10/11/19 20:32 Heparin Sodium (Porcine) (Heparin 5000 units/ml) 5,000 units EVERY 12 HOURS SUBQ 10/11/19 09:00 11/25/19 08:59 10/22/19 09:22 Lacosamide (Vimpat) 100 mg Q12HR ORAL 10/11/19 09:00 01/09/20 08:59 10/22/19 09:18 Lidocaine (Lidoderm 5% PATCH) 3 patch DAILY TDERMAL 10/11/19 09:00 01/09/20 08:59 10/21/19 20:56 Magnesium Hydroxide (Mom) 30 ml DAILY PRN ORAL Constipation 10/10/19 23:30 11/09/19 23:29 10/12/19 18:23 Pantoprazole (Protonix) 40 mg EVERY 12 HOURS ORAL 10/11/19 09:00 11/10/19 08:59 10/22/19 09:20 Pregabalin (Lyrica) 150 mg Q8HR ORAL 10/11/19 06:00 11/10/19 05:59 10/21/19 22:39 Promethazine HCl/ Codeine (Phenergan with Codeine) 5 ml Q4H PRN ORAL For Cough 10/10/19 23:30 11/09/19 23:29 10/19/19 17:03 Chris Arroyo MD Oct 22, 2019 10:09
--- NOTE | 2019-10-22 10:30 | General Progress Note ---
Assessment/Plan Problem List: (1) COPD with asthma ICD Codes: J44.9 - Chronic obstructive pulmonary disease, unspecified SNOMED: 90606762966967540 (2) Seizure ICD Codes: R56.9 - Unspecified convulsions SNOMED: 69883488 (3) CVA (cerebral vascular accident) ICD Codes: I63.9 - Cerebral infarction, unspecified SNOMED: 300278359 (4) Functional quadriplegia ICD Codes: R53.2 - Functional quadriplegia SNOMED: 929820621842649 (5) COVID-19 ICD Codes: U07.1 - COVID-19 SNOMED: 712630037 Status: stable Assessment/Plan: Continue current treatment. Supplemental oxygen and breathing treatments if needed. Continue pain regimen. Continue cough treatment. skin care turn q2. ID follow up Subjective ROS Limited/Unobtainable: No Constitutional: Reports: malaise, weakness HEENT: Reports: no symptoms Cardiovascular: Reports: no symptoms Respiratory: Reports: cough, shortness of breath Gastrointestinal/Abdominal: Reports: no symptoms Genitourinary: Reports: no symptoms Neurologic/Psychiatric: Reports: anxiety, depressed Endocrine: Reports: no symptoms Hematologic/Lymphatic: Reports: anemia Allergies: Coded Allergies: CEFEPIME (Unverified Allergy, Unknown, 11/03/17) LEVOFLOXACIN (Unverified Allergy, Unknown, 11/03/17) PENICILLINS (Unverified Allergy, Unknown, 11/03/17) All Systems: reviewed and negative except above Subjective no new complaints. no chest pain. stable sob. remains on o2. still covid positive. still with some cough. all noted. asking for more cough rx. Objective Last 24 Hour Vital Signs Date Time Temp Pulse Resp B/P (MAP) Pulse Ox O2 Delivery O2 Flow Rate FiO2 10/22/19 09:48 97.2 10/22/19 09:19 94 121/57 10/22/19 08:00 97.2 94 20 121/57 (78) 98 10/22/19 08:00 Nasal Cannula 2.0 10/22/19 07:42 94 10/22/19 04:00 Nasal Cannula 2.0 10/22/19 04:00 97.8 82 20 140/76 (97) 98 10/22/19 03:36 102 10/22/19 00:00 98.1 91 23 136/75 (95) 97 10/22/19 00:00 Nasal Cannula 2.0 10/21/19 23:25 81 10/21/19 20:54 85 146/56 10/21/19 20:00 97.6 82 22 128/67 (87) 97 10/21/19 20:00 Nasal Cannula 2.0 10/21/19 19:36 85 20 96 Nasal Cannula 2.0 28 10/21/19 19:36 96 Nasal Cannula 2.0 28 10/21/19 19:02 88 10/21/19 16:00 Nasal Cannula 2.0 10/21/19 16:00 97.5 85 22 126/73 (90) 95 10/21/19 15:22 80 10/21/19 12:31 83 10/21/19 12:00 Nasal Cannula 2.0 10/21/19 12:00 97.4 91 21 145/69 (94) 99 10/21/19 10:40 75 Intake and Output 10/21/19 10/22/19 19:00 07:00 Intake Total 120 ml Output Total 10 ml 10 ml Balance 110 ml -10 ml Intake Oral 120 ml Stool Total 10 ml 10 ml # Voids 1 Height (Feet): 5 Height (Inches): 5.00 Weight (Pounds): 385 Objective General Appearance: WD/WN, alert Neck: supple Cardiovascular: normal rate Respiratory/Chest: chest wall non-tender, lungs clear, normal breath sounds, no respiratory distress Abdomen: normal bowel sounds, non tender, soft, no organomegaly Edema: no edema noted Arm (L), no edema noted Arm (R), no edema noted Leg (L), no edema noted Leg (R), no edema noted Pedal (L), no edema noted Pedal (R), no edema noted Generalized Kenroy Mcgrath MD Oct 22, 2019 10:30
--- NOTE | 2019-10-22 11:15 | Pulmonology Progress Note ---
Assessment/Plan Assessment/Plan IMPRESSION: Pulmonary infection, asthma, wheezing, history of VRE, COVID positive, stroke. PLAN care as is monitor for change ID follow up reviewed off antibiotics maintain isolation DVT prophylaxis dc planning currently overall with low flow oxygen no worsening in pulmonary status impression, plan, and exam edited and reviewed in detail care discussed with RN Subjective ROS Limited/Unobtainable: Yes Allergies: Coded Allergies: CEFEPIME (Unverified Allergy, Unknown, 11/03/17) LEVOFLOXACIN (Unverified Allergy, Unknown, 11/03/17) PENICILLINS (Unverified Allergy, Unknown, 11/03/17) Subjective care noted overnight d/w ID no distress n on oxygen Objective Last 24 Hour Vital Signs Date Time Temp Pulse Resp B/P (MAP) Pulse Ox O2 Delivery O2 Flow Rate FiO2 10/22/19 09:48 97.2 10/22/19 09:19 94 121/57 10/22/19 08:00 97.2 94 20 121/57 (78) 98 10/22/19 08:00 Nasal Cannula 2.0 10/22/19 07:42 94 10/22/19 04:00 Nasal Cannula 2.0 10/22/19 04:00 97.8 82 20 140/76 (97) 98 10/22/19 03:36 102 10/22/19 00:00 98.1 91 23 136/75 (95) 97 10/22/19 00:00 Nasal Cannula 2.0 10/21/19 23:25 81 10/21/19 20:54 85 146/56 10/21/19 20:00 97.6 82 22 128/67 (87) 97 10/21/19 20:00 Nasal Cannula 2.0 10/21/19 19:36 85 20 96 Nasal Cannula 2.0 28 10/21/19 19:36 96 Nasal Cannula 2.0 28 10/21/19 19:02 88 10/21/19 16:00 Nasal Cannula 2.0 10/21/19 16:00 97.5 85 22 126/73 (90) 95 10/21/19 15:22 80 10/21/19 12:31 83 10/21/19 12:00 Nasal Cannula 2.0 10/21/19 12:00 97.4 91 21 145/69 (94) 99 Intake and Output 10/21/19 10/22/19 19:00 07:00 Intake Total 120 ml Output Total 10 ml 10 ml Balance 110 ml -10 ml Intake Oral 120 ml Stool Total 10 ml 10 ml # Voids 1 Objective WDWN NAD clear breath sounds bilaterally without rhonchi or wheeze [id number] without MRG NABS nontender no HSM no CCE nonfocal reviewed and edited Microbiology Date/Time Source Procedure Growth Status 10/19/19 15:00 Nasopharynx Coronavirus COVID-19 PCR (ABDIAZIZ) - Final Complete Current Medications Medications (Trade) Dose Ordered Sig/Saira Route PRN Reason Start Time Stop Time Status Last Admin Dose Admin Acetaminophen (Tylenol) 650 mg Q6H PRN ORAL Mild Pain/Temp > 100.5 10/10/19 23:30 11/09/19 23:29 10/19/19 10:50 Acetaminophen/ Hydrocodone Bitart ([place]ros[place] 10/325) 1 tab Q4H PRN ORAL Pain 4-10 10/19/19 21:15 10/26/19 21:14 10/22/19 09:18 Albuterol/ Ipratropium (Combivent Respimat) 1 puff Q6H PRN INH Shortness of Breath 10/14/19 15:15 11/13/19 15:14 10/14/19 18:15 Ascorbic Acid (Vitamin C) 500 mg TWICE A DAY ORAL 10/13/19 15:00 11/12/19 14:59 10/22/19 09:19 Aspirin (ASA) 81 mg DAILY ORAL 10/11/19 09:00 11/25/19 08:59 10/22/19 09:19 Atorvastatin Calcium (Lipitor) 10 mg BEDTIME ORAL 10/11/19 21:00 01/09/20 20:59 10/21/19 20:53 Carvedilol (Coreg) 12.5 mg EVERY 12 HOURS ORAL 10/20/19 09:00 11/19/19 08:59 10/22/19 09:19 Cinacalcet (Sensipar) 30 mg DAILY ORAL 10/11/19 09:00 01/09/20 08:59 10/22/19 09:19 Clonazepam (KlonoPIN) 0.5 mg BEDTIME ORAL 10/21/19 21:00 10/28/19 20:59 10/21/19 20:53 Duloxetine HCl (Cymbalta) 60 mg DAILY ORAL 10/15/19 09:00 01/09/20 08:59 10/22/19 09:19 Ferrous Sulfate (Feosol) 325 mg TID ORAL 10/11/19 09:00 01/09/20 08:59 10/22/19 09:19 Folic Acid (Folate) 1 mg DAILY ORAL 10/11/19 09:00 11/10/19 08:59 10/22/19 09:19 Guaifenesin (Mucinex ER) 600 mg TWICE A DAY ORAL 10/15/19 09:00 01/13/20 08:59 10/22/19 09:19 Guaifenesin (Robitussin) 100 mg Q4H PRN ORAL cough 10/10/19 23:30 01/08/20 23:29 10/11/19 20:32 Heparin Sodium (Porcine) (Heparin 5000 units/ml) 5,000 units EVERY 12 HOURS SUBQ 10/11/19 09:00 11/25/19 08:59 10/22/19 09:22 Lacosamide (Vimpat) 100 mg Q12HR ORAL 10/11/19 09:00 01/09/20 08:59 10/22/19 09:18 Lidocaine (Lidoderm 5% PATCH) 3 patch DAILY TDERMAL 10/11/19 09:00 01/09/20 08:59 10/21/19 20:56 Magnesium Hydroxide (Mom) 30 ml DAILY PRN ORAL Constipation 10/10/19 23:30 11/09/19 23:29 10/12/19 18:23 Pantoprazole (Protonix) 40 mg EVERY 12 HOURS ORAL 10/11/19 09:00 11/10/19 08:59 10/22/19 09:20 Pregabalin (Lyrica) 150 mg Q8HR ORAL 10/11/19 06:00 11/10/19 05:59 10/21/19 22:39 Promethazine HCl/ Codeine (Phenergan with Codeine) 5 ml Q4H PRN ORAL For Cough 10/10/19 23:30 11/09/19 23:29 10/19/19 17:03 Darrel Schuster MD Oct 22, 2019 11:15
--- NOTE | 2019-10-22 11:28 | NUR ---
CASE MANAGEMENT: REVIEW 10/22/2019 SI:COVID 19 (+). QUADRIPLEGIA. T 97.2 HR 94 RR 20 B/P 121/57 SATS 98% ON 2L/NC LABS: NONE TODAY IS: PROTONIX PO Q12H COREG PO Q12H LIPITOR PO QHS ASA PO QD VIMPAT PO Q12H SDU PLAN OF CARE: currently overall with low flow oxygen
[2019-10-22 12:00] VITALS: BP 123/43
[2019-10-22 16:00] VITALS: BP 140/65
--- NOTE | 2019-10-22 19:26 | NUR ---
HAND-OFF: Report given to MARKUS Medina. Patient in stable condition.
[2019-10-22 20:00] VITALS: BP 117/51
[2019-10-22] MEDS: clonazePAM 0.5mg tab ORAL SCH (21:18)
[2019-10-23] VITALS: BP 156/98
[2019-10-23] MEDS: HYDROcodone/Acetamin 10/325 tab ORAL PRN ×3 (00:21→21:12)
--- NOTE | 2019-10-23 03:00 | Progress Note ---
DATE: 10/22/2019 SUBJECTIVE: The patient is essentially unchanged. Some cough persisting still with mild shortness of breath, on oxygen therapy. PHYSICAL EXAMINATION: VITAL SIGNS: Blood pressure 121/57, pulse 94, respiratory 20. LUNGS: Bilateral breath sounds. CARDIAC: Regular rhythm and rate. Normal S1, S2. ABDOMEN: Soft. EXTREMITIES: No edema. IMPRESSION: 1. COVID-19 pneumonia, improving. 2. COPD. 3. Hypertensive heart disease. 4. Diastolic dysfunction with chronic congestive heart failure. PLAN: Plan of care in place. Awaiting resolution of virus before discharge can be . Carlos Eduardo Andino M.D. DR: Dusty JOB#: [id number] CC:
[2019-10-23 04:00] VITALS: BP 149/67
[2019-10-23] MEDS: Lyrica 75mg cap ORAL SCH ×3 (06:12→22:00)
[2019-10-23 08:00] VITALS: BP 145/76
--- NOTE | 2019-10-23 08:59 | Pulmonology Progress Note ---
Assessment/Plan Assessment/Plan IMPRESSION: Pulmonary infection, asthma, wheezing, history of VRE, COVID positive, stroke. PLAN care as is monitor for change ID follow up reviewed off antibiotics isolation per ID DVT prophylaxis dc planning currently overall with low flow oxygen - may discontinue no worsening in pulmonary status per review impression, plan, and exam edited and reviewed in detail care discussed with RN Subjective Allergies: Coded Allergies: CEFEPIME (Unverified Allergy, Unknown, 11/03/17) LEVOFLOXACIN (Unverified Allergy, Unknown, 11/03/17) PENICILLINS (Unverified Allergy, Unknown, 11/03/17) Subjective care noted overnight comfortable for now no distress noted on oxygen Objective Last 24 Hour Vital Signs Date Time Temp Pulse Resp B/P (MAP) Pulse Ox O2 Delivery O2 Flow Rate FiO2 10/23/19 06:42 97.7 10/23/19 04:00 97.7 98 19 149/67 (94) 100 10/23/19 04:00 Nasal Cannula 2.0 10/23/19 03:32 86 10/23/19 00:51 97.9 10/23/19 00:28 86 10/23/19 00:00 Nasal Cannula 2.0 10/23/19 00:00 96 10/23/19 00:00 97.9 99 22 156/98 (117) 99 10/22/19 22:10 89 117/51 10/22/19 20:00 98.0 90 20 117/51 (73) 98 10/22/19 20:00 Nasal Cannula 2.0 10/22/19 20:00 86 10/22/19 19:33 81 20 96 Nasal Cannula 2.0 28 10/22/19 19:33 96 Nasal Cannula 2.0 28 10/22/19 16:00 98.0 84 23 140/65 (90) 98 10/22/19 16:00 Nasal Cannula 2.0 10/22/19 15:46 86 10/22/19 13:57 80 10/22/19 12:00 Nasal Cannula 2.0 10/22/19 12:00 97.5 86 20 123/43 (69) 98 10/22/19 09:19 94 121/57 Intake and Output 10/22/19 10/23/19 19:00 07:00 Intake Total 300 ml 240 ml Output Total 30 ml 5 ml Balance 270 ml 235 ml Intake Oral 300 ml 240 ml Stool Total 30 ml 5 ml # Voids 3 1 Objective WDWN NAD clear breath sounds bilaterally without rhonchi or wheeze [id number] without MRG NABS nontender no HSM no CCE nonfocal reviewed and edited Current Medications Medications (Trade) Dose Ordered Sig/Saira Route PRN Reason Start Time Stop Time Status Last Admin Dose Admin Acetaminophen (Tylenol) 650 mg Q6H PRN ORAL Mild Pain/Temp > 100.5 10/10/19 23:30 11/09/19 23:29 10/19/19 10:50 Acetaminophen/ Hydrocodone Bitart ([place] 10/325) 1 tab Q4H PRN ORAL Pain 4-10/19/19 21:15 10/26/19 21:14 10/23/19 00:21 Albuterol/ Ipratropium (Combivent Respimat) 1 puff Q6H PRN INH Shortness of Breath 10/14/19 15:15 11/13/19 15:14 10/14/19 18:15 Ascorbic Acid (Vitamin C) 500 mg TWICE A DAY ORAL 10/13/19 15:00 11/12/19 14:59 10/22/19 18:49 Aspirin (ASA) 81 mg DAILY ORAL 10/11/19 09:00 11/25/19 08:59 10/22/19 09:19 Atorvastatin Calcium (Lipitor) 10 mg BEDTIME ORAL 10/11/19 21:00 01/09/20 20:59 10/22/19 21:17 Carvedilol (Coreg) 12.5 mg EVERY 12 HOURS ORAL 10/20/19 09:00 11/19/19 08:59 10/22/19 22:10 Cinacalcet (Sensipar) 30 mg DAILY ORAL 10/11/19 09:00 01/09/20 08:59 10/22/19 09:19 Clonazepam (KlonoPIN) 0.5 mg BEDTIME ORAL 10/21/19 21:00 10/28/19 20:59 10/22/19 21:18 Duloxetine HCl (Cymbalta) 60 mg DAILY ORAL 10/15/19 09:00 01/09/20 08:59 10/22/19 09:19 Ferrous Sulfate (Feosol) 325 mg TID ORAL 10/11/19 09:00 01/09/20 08:59 10/22/19 18:48 Folic Acid (Folate) 1 mg DAILY ORAL 10/11/19 09:00 11/10/19 08:59 10/22/19 09:19 Guaifenesin (Mucinex ER) 600 mg TWICE A DAY ORAL 10/15/19 09:00 01/13/20 08:59 10/22/19 18:49 Guaifenesin (Robitussin) 100 mg Q4H PRN ORAL cough 10/10/19 23:30 01/08/20 23:29 10/11/19 20:32 Heparin Sodium (Porcine) (Heparin 5000 units/ml) 5,000 units EVERY 12 HOURS SUBQ 10/11/19 09:00 11/25/19 08:59 10/22/19 21:10 Lacosamide (Vimpat) 100 mg Q12HR ORAL 10/11/19 09:00 01/09/20 08:59 10/22/19 21:18 Lidocaine (Lidoderm 5% PATCH) 3 patch DAILY TDERMAL 10/11/19 09:00 01/09/20 08:59 10/21/19 20:56 Magnesium Hydroxide (Mom) 30 ml DAILY PRN ORAL Constipation 10/10/19 23:30 11/09/19 23:29 10/12/19 18:23 Pantoprazole (Protonix) 40 mg EVERY 12 HOURS ORAL 10/11/19 09:00 11/10/19 08:59 10/22/19 21:18 Pregabalin (Lyrica) 150 mg Q8HR ORAL 10/11/19 06:00 11/10/19 05:59 10/23/19 06:12 Promethazine HCl/ Codeine (Phenergan with Codeine) 5 ml Q4H PRN ORAL For Cough 10/10/19 23:30 11/09/19 23:29 10/19/19 17:03 Darrel Schuster MD Oct 23, 2019 08:59
[2019-10-23] MEDS: Carvedilol 6.25mg Tab ORAL SCH (09:47)
[2019-10-23] MEDS: Sensipar 30mg Tab ORAL SCH (09:47)
[2019-10-23] MEDS: Ascorbic Acid 500mg tab ORAL SCH ×2 (09:47→16:55)
[2019-10-23] MEDS: Lacosamide 50mg tablet ORAL SCH ×2 (09:47→21:17)
[2019-10-23] MEDS: Aspirin Baby 81mg ORAL SCH (09:48)
[2019-10-23] MEDS: guaiFENesin ER 600mg tab ORAL SCH ×2 (09:48→16:55)
[2019-10-23] MEDS: Heparin 5000 units/ml inj SUBQ SCH ×2 (09:50→21:19)
--- NOTE | 2019-10-23 10:33 | General Progress Note ---
Assessment/Plan Problem List: (1) COPD with asthma ICD Codes: J44.9 - Chronic obstructive pulmonary disease, unspecified SNOMED: 23870549152015772 (2) Seizure ICD Codes: R56.9 - Unspecified convulsions SNOMED: 31074582 (3) CVA (cerebral vascular accident) ICD Codes: I63.9 - Cerebral infarction, unspecified SNOMED: 550623393 (4) Functional quadriplegia ICD Codes: R53.2 - Functional quadriplegia SNOMED: 597928009499812 (5) COVID-19 ICD Codes: U07.1 - COVID-19 SNOMED: 922098935 Status: stable Assessment/Plan: Continue current treatment. Supplemental oxygen and breathing treatments if needed. Continue pain regimen. Continue cough treatment. skin care turn q2. ID follow up repeat covid 19 Subjective ROS Limited/Unobtainable: No Constitutional: Reports: malaise, weakness HEENT: Reports: no symptoms Cardiovascular: Reports: no symptoms Respiratory: Reports: cough Gastrointestinal/Abdominal: Reports: no symptoms Genitourinary: Reports: no symptoms Neurologic/Psychiatric: Reports: anxiety, depressed Endocrine: Reports: no symptoms Hematologic/Lymphatic: Reports: anemia Allergies: Coded Allergies: CEFEPIME (Unverified Allergy, Unknown, 11/03/17) LEVOFLOXACIN (Unverified Allergy, Unknown, 11/03/17) PENICILLINS (Unverified Allergy, Unknown, 11/03/17) All Systems: reviewed and negative except above Subjective no new complaints. no chest pain. stable sob. remains on o2. still with some cough. all noted. Objective Last 24 Hour Vital Signs Date Time Temp Pulse Resp B/P (MAP) Pulse Ox O2 Delivery O2 Flow Rate FiO2 10/23/19 09:47 97 145/61 10/23/19 08:00 97.5 94 19 145/76 (99) 100 10/23/19 06:42 97.7 10/23/19 04:00 97.7 98 19 149/67 (94) 100 10/23/19 04:00 Nasal Cannula 2.0 10/23/19 03:32 86 10/23/19 00:51 97.9 10/23/19 00:28 86 10/23/19 00:00 Nasal Cannula 2.0 10/23/19 00:00 96 10/23/19 00:00 97.9 99 22 156/98 (117) 99 10/22/19 22:10 89 117/51 10/22/19 20:00 98.0 90 20 117/51 (73) 98 10/22/19 20:00 Nasal Cannula 2.0 10/22/19 20:00 86 10/22/19 19:33 81 20 96 Nasal Cannula 2.0 28 10/22/19 19:33 96 Nasal Cannula 2.0 28 10/22/19 16:00 98.0 84 23 140/65 (90) 98 10/22/19 16:00 Nasal Cannula 2.0 10/22/19 15:46 86 10/22/19 13:57 80 10/22/19 12:00 Nasal Cannula 2.0 10/22/19 12:00 97.5 86 20 123/43 (69) 98 Intake and Output 10/22/19 10/23/19 19:00 07:00 Intake Total 300 ml 240 ml Output Total 30 ml 5 ml Balance 270 ml 235 ml Intake Oral 300 ml 240 ml Stool Total 30 ml 5 ml # Voids 3 1 Height (Feet): 5 Height (Inches): 5.00 Weight (Pounds): 385 Objective General Appearance: WD/WN, alert Neck: supple Cardiovascular: normal rate Respiratory/Chest: chest wall non-tender, lungs clear, normal breath sounds, no respiratory distress Abdomen: normal bowel sounds, non tender, soft, no organomegaly Edema: no edema noted Arm (L), no edema noted Arm (R), no edema noted Leg (L), no edema noted Leg (R), no edema noted Pedal (L), no edema noted Pedal (R), no edema noted Generalized Kenroy Mcgrath MD Oct 23, 2019 10:33
--- NOTE | 2019-10-23 11:05 | NUR ---
CASE MANAGEMENT: REVIEW 10/23/2019 SI:COVID 19 (+) PNA. QUADRIPLEGIA. T 97.5 HR 94 RR 19 B/P 145/76 SATS 100% ON 2L/NC LABS: NONE TODAY IS: PROTONIX PO Q12H COREG PO Q12H LIPITOR PO QHS ASA PO QD VIMPAT PO Q12H SDU PLAN OF CARE: REPEAT COVID TESTING PATIENT CONTINUES TO TEST POSITIVE FOR COVID 19 Awaiting resolution of virus
[2019-10-23 12:00] VITALS: BP 138/74
--- NOTE | 2019-10-23 14:21 | Infectious Diseases Prog Note ---
Assessment/Plan Assessment/Plan antibiotics : none A 1. covid 19 pneumonia s/p rx positive tests on 3.28.20, 4.3.20, 4.4.20, 4.6.20 2. COPD 3. asthma 4. CVA 5. seizures P 1. continue off antibiotics 2. continue isolation Subjective Constitutional: Denies: fever, chills Respiratory: Reports: shortness of breath - mild, dry cough - mild Gastrointestinal/Abdominal: Denies: nausea, vomiting, diarrhea Musculoskeletal: Denies: pain Allergies: Coded Allergies: CEFEPIME (Unverified Allergy, Unknown, 11/03/17) LEVOFLOXACIN (Unverified Allergy, Unknown, 11/03/17) PENICILLINS (Unverified Allergy, Unknown, 11/03/17) Objective Vital Signs Last 24 Hour Vital Signs Date Time Temp Pulse Resp B/P (MAP) Pulse Ox O2 Delivery O2 Flow Rate FiO2 10/23/19 09:47 97 145/61 10/23/19 08:00 97.5 94 19 145/76 (99) 100 10/23/19 08:00 Nasal Cannula 2.0 10/23/19 06:42 97.7 10/23/19 04:00 97.7 98 19 149/67 (94) 100 10/23/19 04:00 Nasal Cannula 2.0 10/23/19 03:32 86 10/23/19 00:51 97.9 10/23/19 00:28 86 10/23/19 00:00 Nasal Cannula 2.0 10/23/19 00:00 96 10/23/19 00:00 97.9 99 22 156/98 (117) 99 10/22/19 22:10 89 117/51 10/22/19 20:00 98.0 90 20 117/51 (73) 98 10/22/19 20:00 Nasal Cannula 2.0 10/22/19 20:00 86 10/22/19 19:33 81 20 96 Nasal Cannula 2.0 28 10/22/19 19:33 96 Nasal Cannula 2.0 28 10/22/19 16:00 98.0 84 23 140/65 (90) 98 10/22/19 16:00 Nasal Cannula 2.0 10/22/19 15:46 86 Height (Feet): 5 Height (Inches): 5.00 Weight (Pounds): 385 Respiratory/Chest: lungs clear Cardiovascular: normal rate, regular rhythm, no gallop/murmur Abdomen: soft, non tender Extremities: no edema Current Medications Medications (Trade) Dose Ordered Sig/Saira Route PRN Reason Start Time Stop Time Status Last Admin Dose Admin Acetaminophen (Tylenol) 650 mg Q6H PRN ORAL Mild Pain/Temp > 100.5 10/10/19 23:30 11/09/19 23:29 10/19/19 10:50 Acetaminophen/ Hydrocodone Bitart ([place] 10/325) 1 tab Q4H PRN ORAL Pain 4-10/19/19 21:15 10/26/19 21:14 10/23/19 00:21 Albuterol/ Ipratropium (Combivent Respimat) 1 puff Q6H PRN INH Shortness of Breath 10/14/19 15:15 11/13/19 15:14 10/14/19 18:15 Ascorbic Acid (Vitamin C) 500 mg TWICE A DAY ORAL 10/13/19 15:00 11/12/19 14:59 10/23/19 09:47 Aspirin (ASA) 81 mg DAILY ORAL 10/11/19 09:00 11/25/19 08:59 10/23/19 09:48 Atorvastatin Calcium (Lipitor) 10 mg BEDTIME ORAL 10/11/19 21:00 01/09/20 20:59 10/22/19 21:17 Carvedilol (Coreg) 12.5 mg EVERY 12 HOURS ORAL 10/23/19 21:00 11/19/19 20:59 Cinacalcet (Sensipar) 30 mg DAILY ORAL 10/11/19 09:00 01/09/20 08:59 10/23/19 09:47 Clonazepam (KlonoPIN) 0.5 mg BEDTIME ORAL 10/21/19 21:00 10/28/19 20:59 10/22/19 21:18 Duloxetine HCl (Cymbalta) 60 mg DAILY ORAL 10/15/19 09:00 01/09/20 08:59 10/23/19 09:47 Ferrous Sulfate (Feosol) 325 mg TID ORAL 10/11/19 09:00 01/09/20 08:59 10/23/19 13:37 Folic Acid (Folate) 1 mg DAILY ORAL 10/11/19 09:00 11/10/19 08:59 10/23/19 09:48 Guaifenesin (Mucinex ER) 600 mg TWICE A DAY ORAL 10/15/19 09:00 01/13/20 08:59 10/23/19 09:48 Guaifenesin (Robitussin) 100 mg Q4H PRN ORAL cough 10/10/19 23:30 01/08/20 23:29 10/11/19 20:32 Heparin Sodium (Porcine) (Heparin 5000 units/ml) 5,000 units EVERY 12 HOURS SUBQ 10/11/19 09:00 11/25/19 08:59 10/23/19 09:50 Lacosamide (Vimpat) 100 mg Q12HR ORAL 10/11/19 09:00 01/09/20 08:59 10/23/19 09:47 Lidocaine (Lidoderm 5% PATCH) 3 patch DAILY TDERMAL 10/11/19 09:00 01/09/20 08:59 10/23/19 09:51 Magnesium Hydroxide (Mom) 30 ml DAILY PRN ORAL Constipation 10/10/19 23:30 11/09/19 23:29 10/12/19 18:23 Pantoprazole (Protonix) 40 mg EVERY 12 HOURS ORAL 10/11/19 09:00 11/10/19 08:59 10/23/19 09:48 Pregabalin (Lyrica) 150 mg Q8HR ORAL 10/11/19 06:00 11/10/19 05:59 10/23/19 13:37 Promethazine HCl/ Codeine (Phenergan with Codeine) 5 ml Q4H PRN ORAL For Cough 10/10/19 23:30 11/09/19 23:29 10/19/19 17:03 Huma Serna MD Oct 23, 2019 14:21
[2019-10-23 15:37] VITALS: BP 149/75
--- NOTE | 2019-10-23 19:24 | NUR ---
HAND-OFF: Report given to MARKUS Avila. Patient in stable condition.
[2019-10-23 20:00] VITALS: BP 148/77
--- NOTE | 2019-10-23 20:03 | NUR ---
NURSE NOTES: Late entry. Received patient from Aide Waddell RN. Patient is aaox 3, vss, with no acute distress. 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 No skin issues although patient states "my butt hurts." No obvious injury found. Patient is on 2L nasal canula saturations at 97%, and breathing with no distress. Bed at its lowest position, call light in reach and x3 bed rails are up. Will continue to monitor. Addendum: 10/23/19 at 2014 by Adam Cash RN Wrong date and time. Correct date and time is 10/22/191927
--- NOTE | 2019-10-23 21:00 | NUR ---
NURSE NOTES: Pt declining administration of Lyrica. Pt educated but continues to decline at this time. Pt educated IV catheter placement and changing per protocol Q 72hrs unless otherwise symptomatic. Pt declines new IV placement at this time. Will reattempt later. Will continue to monitor.
--- NOTE | 2019-10-23 21:10 | NUR ---
NURSE NOTES: Pt notes 10/10 pain and requests PRN [place] 10/325. Pt states pain is generalized and in her right knee. Administered Kenvil as prescribed. no adverse effects noted. Will continue to monitor.
[2019-10-23] MEDS: clonazePAM 0.5mg tab ORAL SCH (21:17)
[2019-10-23] MEDS: Carvedilol 12.5mg tab ORAL SCH (21:18)
--- NOTE | 2019-10-23 23:00 | NUR ---
NURSE NOTES: Pt provided with a bed bath, linen change and oral care. Pt tolerated care well. Pt remains resting in bed; bed remains in lowest position with safety wheels engaged, side rails up x3, call light within reach and bed alarm activated. Fall and aspiration precautions maintained.
[2019-10-24] VITALS: BP 138/76
--- NOTE | 2019-10-24 01:29 | Progress Note ---
DATE: 10/23/2019 CARDIOLOGY PROGRESS NOTE SUBJECTIVE: Patient is with mild shortness of breath. Remaining on nasal oxygen. PHYSICAL EXAMINATION: VITAL SIGNS: Saturating at 100% on 2 liters. Remains on monitor with sinus rhythm and rare atrial ectopics. LUNGS: Bilateral breath sounds. Few rhonchi. CARDIAC: Regular rhythm and rate. Normal S1, S2. ABDOMEN: Soft. EXTREMITIES: No edema. IMPRESSION: 1. COVID-19 pneumonia, status post full course of therapy with azithromycin and hydroxychloroquine. 2. Resolved hypoxia. 3. Stable cardiac rhythm. 4. History of COPD. 5. Hypertensive heart disease. 6. Chronic ischemic heart disease with stable angina. PLAN: 1. Discontinue telemetry as discussed with staff. 2. Continue anti-platelet therapy and beta-blockade. 3. DVT prophylaxis. 4. Follow up electrolytes and replace potassium as needed. Carlos Eduardo Andino M.D. DR: EDU JOB#: [id number] CC:
--- NOTE | 2019-10-24 04:00 | NUR ---
NURSE NOTES: Pt provided with a bed bath, linen change and oral care. Pt became verbal and aggressive with staff. Pt refused 0400 vitals and noted to swipe at RN. Pt educated but continues to decline vital signs and states that she "just wants to go home." Pt remains resting in bed; bed remains in lowest position with safety wheels engaged, side rails up x3, call light within reach and bed alarm activated. Fall and aspiration precautions maintained.
--- NOTE | 2019-10-24 04:30 | NUR ---
NURSE NOTES: Performed scheduled 12 lead EKG as ordered. Results as follows: NSR with nonspecific T wave abnormality. Will notify clinic director. Will continue to monitor. Addendum: 10/24/19 at 0532 by JOE MCKENZIE RN Entered under wrong pt chart-please strike from record.
[2019-10-24] MEDS: Lyrica 75mg cap ORAL SCH ×3 (05:41→21:36)
--- NOTE | 2019-10-24 07:10 | NUR ---
NURSE NOTES: Received pt from MARKUS Avila. Patient is aox3-4 and in bed resting. Isolation precautions for positive COVID result. Patient is on 2L NC and O2 sat: 98% and tolerating well. Patient has a rectal tube and patent and draining well free flow below the bladder. Bed is in lowest position, alarmed and locked. Optimal HOB placement, side rails x3, and call light is within reach. Will continue to monitor.
--- NOTE | 2019-10-24 07:10 | NUR ---
HAND-OFF: Report given to MARKUS High. Pt remains stable at this time.
[2019-10-24 08:52] VITALS: BP 130/65
[2019-10-24] MEDS: Lacosamide 50mg tablet ORAL SCH ×2 (08:54→21:35)
[2019-10-24] MEDS: Ascorbic Acid 500mg tab ORAL SCH ×2 (08:55→17:34)
[2019-10-24] MEDS: guaiFENesin ER 600mg tab ORAL SCH ×2 (08:55→17:34)
[2019-10-24] MEDS: Carvedilol 12.5mg tab ORAL SCH ×2 (08:55→21:35)
[2019-10-24] MEDS: Sensipar 30mg Tab ORAL SCH (08:55)
[2019-10-24] MEDS: Aspirin Baby 81mg ORAL SCH (08:55)
[2019-10-24] MEDS: Heparin 5000 units/ml inj SUBQ SCH ×2 (08:58→21:34)
--- NOTE | 2019-10-24 10:23 | Pulmonology Progress Note ---
Assessment/Plan Assessment/Plan IMPRESSION: Pulmonary infection, asthma, wheezing, history of VRE, COVID positive, stroke. PLAN care as is monitor for change ID follow up reviewed off antibiotics isolation per ID DVT prophylaxis dc planning for now no other changes currently overall with low flow oxygen - may discontinue no worsening in pulmonary status per review impression, plan, and exam edited and reviewed in detail care discussed with RN Subjective Allergies: Coded Allergies: CEFEPIME (Unverified Allergy, Unknown, 11/03/17) LEVOFLOXACIN (Unverified Allergy, Unknown, 11/03/17) PENICILLINS (Unverified Allergy, Unknown, 11/03/17) Subjective care noted overnight comfortable for now no distress noted on oxygen Objective Last 24 Hour Vital Signs Date Time Temp Pulse Resp B/P (MAP) Pulse Ox O2 Delivery O2 Flow Rate FiO2 10/24/19 08:55 97 130/65 10/24/19 08:52 98.0 97 20 130/65 (86) 95 10/24/19 08:00 Nasal Cannula 2.0 10/24/19 04:00 Nasal Cannula 2.0 10/24/19 00:00 Nasal Cannula 2.0 10/24/19 00:00 97.2 93 20 138/76 (96) 96 10/23/19 21:18 101 148/73 10/23/19 20:00 Nasal Cannula 2.0 10/23/19 20:00 97.6 97 18 148/77 (100) 97 10/23/19 16:04 97.5 10/23/19 16:00 88 10/23/19 15:58 Nasal Cannula 2.0 10/23/19 15:37 97.5 101 18 149/75 (99) 98 10/23/19 12:00 Nasal Cannula 2.0 10/23/19 12:00 97.5 94 19 138/74 (95) 100 10/23/19 12:00 83 Intake and Output 10/23/19 10/24/19 19:00 07:00 Intake Total 250 ml 120 ml Output Total 10 ml 50 ml Balance 240 ml 70 ml Intake Oral 250 ml 120 ml Stool Total 10 ml 50 ml # Voids 2 2 Objective WDWN NAD clear breath sounds bilaterally without rhonchi or wheeze [id number] without MRG NABS nontender no HSM no CCE nonfocal reviewed and edited Current Medications Medications (Trade) Dose Ordered Sig/Saira Route PRN Reason Start Time Stop Time Status Last Admin Dose Admin Acetaminophen (Tylenol) 650 mg Q6H PRN ORAL Mild Pain/Temp > 100.5 10/10/19 23:30 11/09/19 23:29 10/19/19 10:50 Acetaminophen/ Hydrocodone Bitart ([place] 10/325) 1 tab Q4H PRN ORAL Pain 4-10/19/19 21:15 10/26/19 21:14 10/23/19 21:12 Albuterol/ Ipratropium (Combivent Respimat) 1 puff Q6H PRN INH Shortness of Breath 10/14/19 15:15 11/13/19 15:14 10/14/19 18:15 Ascorbic Acid (Vitamin C) 500 mg TWICE A DAY ORAL 10/13/19 15:00 11/12/19 14:59 10/24/19 08:55 Aspirin (ASA) 81 mg DAILY ORAL 10/11/19 09:00 11/25/19 08:59 10/24/19 08:55 Atorvastatin Calcium (Lipitor) 10 mg BEDTIME ORAL 10/11/19 21:00 01/09/20 20:59 10/23/19 21:18 Carvedilol (Coreg) 12.5 mg EVERY 12 HOURS ORAL 10/23/19 21:00 11/19/19 20:59 10/24/19 08:55 Cinacalcet (Sensipar) 30 mg DAILY ORAL 10/11/19 09:00 01/09/20 08:59 10/24/19 08:55 Clonazepam (KlonoPIN) 0.5 mg BEDTIME ORAL 10/21/19 21:00 10/28/19 20:59 10/23/19 21:17 Duloxetine HCl (Cymbalta) 60 mg DAILY ORAL 10/15/19 09:00 01/09/20 08:59 10/24/19 08:54 Ferrous Sulfate (Feosol) 325 mg TID ORAL 10/11/19 09:00 01/09/20 08:59 10/24/19 08:54 Folic Acid (Folate) 1 mg DAILY ORAL 10/11/19 09:00 11/10/19 08:59 10/24/19 08:55 Guaifenesin (Mucinex ER) 600 mg TWICE A DAY ORAL 10/15/19 09:00 01/13/20 08:59 10/24/19 08:55 Guaifenesin (Robitussin) 100 mg Q4H PRN ORAL cough 10/10/19 23:30 01/08/20 23:29 10/11/19 20:32 Heparin Sodium (Porcine) (Heparin 5000 units/ml) 5,000 units EVERY 12 HOURS SUBQ 10/11/19 09:00 11/25/19 08:59 10/24/19 08:58 Lacosamide (Vimpat) 100 mg Q12HR ORAL 10/11/19 09:00 01/09/20 08:59 10/24/19 08:54 Lidocaine (Lidoderm 5% PATCH) 3 patch DAILY TDERMAL 10/11/19 09:00 01/09/20 08:59 10/24/19 08:49 Magnesium Hydroxide (Mom) 30 ml DAILY PRN ORAL Constipation 10/10/19 23:30 11/09/19 23:29 10/12/19 18:23 Pantoprazole (Protonix) 40 mg EVERY 12 HOURS ORAL 10/11/19 09:00 11/10/19 08:59 10/24/19 08:55 Pregabalin (Lyrica) 150 mg Q8HR ORAL 10/11/19 06:00 11/10/19 05:59 10/23/19 13:37 Promethazine HCl/ Codeine (Phenergan with Codeine) 5 ml Q4H PRN ORAL For Cough 10/10/19 23:30 11/09/19 23:29 10/19/19 17:03 Darrel Schuster MD Oct 24, 2019 10:23
[2019-10-24 12:00] VITALS: BP 130/84
--- NOTE | 2019-10-24 12:03 | Infectious Diseases Prog Note ---
Assessment/Plan Assessment/Plan antibiotics : none A 1. covid 19 pneumonia s/p rx positive tests on 3.28.20, 4.3.20, 4.4.20, 4.6.20 2. COPD 3. asthma 4. CVA 5. seizures P 1. continue off antibiotics 2. continue isolation Subjective ROS Limited/Unobtainable: Yes Allergies: Coded Allergies: CEFEPIME (Unverified Allergy, Unknown, 11/03/17) LEVOFLOXACIN (Unverified Allergy, Unknown, 11/03/17) PENICILLINS (Unverified Allergy, Unknown, 11/03/17) Objective Vital Signs Last 24 Hour Vital Signs Date Time Temp Pulse Resp B/P (MAP) Pulse Ox O2 Delivery O2 Flow Rate FiO2 10/24/19 08:55 97 130/65 10/24/19 08:52 98.0 97 20 130/65 (86) 95 10/24/19 08:00 Nasal Cannula 2.0 10/24/19 04:00 Nasal Cannula 2.0 10/24/19 00:00 Nasal Cannula 2.0 10/24/19 00:00 97.2 93 20 138/76 (96) 96 10/23/19 21:18 101 148/73 10/23/19 20:00 Nasal Cannula 2.0 10/23/19 20:00 97.6 97 18 148/77 (100) 97 10/23/19 16:04 97.5 10/23/19 16:00 88 10/23/19 15:58 Nasal Cannula 2.0 10/23/19 15:37 97.5 101 18 149/75 (99) 98 Height (Feet): 5 Height (Inches): 5.00 Weight (Pounds): 385 Current Medications Medications (Trade) Dose Ordered Sig/Saira Route PRN Reason Start Time Stop Time Status Last Admin Dose Admin Acetaminophen (Tylenol) 650 mg Q6H PRN ORAL Mild Pain/Temp > 100.5 10/10/19 23:30 11/09/19 23:29 10/19/19 10:50 Acetaminophen/ Hydrocodone Bitart ([place] [address]25) 1 tab Q4H PRN ORAL Pain 4-10 10/19/19 21:15 10/26/19 21:14 10/23/19 21:12 Albuterol/ Ipratropium (Combivent Respimat) 1 puff Q6H PRN INH Shortness of Breath 10/14/19 15:15 11/13/19 15:14 10/14/19 18:15 Ascorbic Acid (Vitamin C) 500 mg TWICE A DAY ORAL 10/13/19 15:00 11/12/19 14:59 10/24/19 08:55 Aspirin (ASA) 81 mg DAILY ORAL 10/11/19 09:00 11/25/19 08:59 10/24/19 08:55 Atorvastatin Calcium (Lipitor) 10 mg BEDTIME ORAL 10/11/19 21:00 01/09/20 20:59 10/23/19 21:18 Carvedilol (Coreg) 12.5 mg EVERY 12 HOURS ORAL 10/23/19 21:00 11/19/19 20:59 10/24/19 08:55 Cinacalcet (Sensipar) 30 mg DAILY ORAL 10/11/19 09:00 01/09/20 08:59 10/24/19 08:55 Clonazepam (KlonoPIN) 0.5 mg BEDTIME ORAL 10/21/19 21:00 10/28/19 20:59 10/23/19 21:17 Duloxetine HCl (Cymbalta) 60 mg DAILY ORAL 10/15/19 09:00 01/09/20 08:59 10/24/19 08:54 Ferrous Sulfate (Feosol) 325 mg TID ORAL 10/11/19 09:00 01/09/20 08:59 10/24/19 08:54 Folic Acid (Folate) 1 mg DAILY ORAL 10/11/19 09:00 11/10/19 08:59 10/24/19 08:55 Guaifenesin (Mucinex ER) 600 mg TWICE A DAY ORAL 10/15/19 09:00 01/13/20 08:59 10/24/19 08:55 Guaifenesin (Robitussin) 100 mg Q4H PRN ORAL cough 10/10/19 23:30 01/08/20 23:29 10/11/19 20:32 Heparin Sodium (Porcine) (Heparin 5000 units/ml) 5,000 units EVERY 12 HOURS SUBQ 10/11/19 09:00 11/25/19 08:59 10/24/19 08:58 Lacosamide (Vimpat) 100 mg Q12HR ORAL 10/11/19 09:00 01/09/20 08:59 10/24/19 08:54 Lidocaine (Lidoderm 5% PATCH) 3 patch DAILY TDERMAL 10/11/19 09:00 01/09/20 08:59 10/24/19 08:49 Magnesium Hydroxide (Mom) 30 ml DAILY PRN ORAL Constipation 10/10/19 23:30 11/09/19 23:29 10/12/19 18:23 Pantoprazole (Protonix) 40 mg EVERY 12 HOURS ORAL 10/11/19 09:00 11/10/19 08:59 10/24/19 08:55 Pregabalin (Lyrica) 150 mg Q8HR ORAL 10/11/19 06:00 11/10/19 05:59 10/23/19 13:37 Promethazine HCl/ Codeine (Phenergan with Codeine) 5 ml Q4H PRN ORAL For Cough 10/10/19 23:30 11/09/19 23:29 10/19/19 17:03 Huma Serna MD Oct 24, 2019 12:03
--- NOTE | 2019-10-24 12:31 | General Progress Note ---
Assessment/Plan Problem List: (1) COPD with asthma ICD Codes: J44.9 - Chronic obstructive pulmonary disease, unspecified SNOMED: 25926702059004646 (2) Seizure ICD Codes: R56.9 - Unspecified convulsions SNOMED: 51821609 (3) CVA (cerebral vascular accident) ICD Codes: I63.9 - Cerebral infarction, unspecified SNOMED: 301099101 (4) Functional quadriplegia ICD Codes: R53.2 - Functional quadriplegia SNOMED: 120501499562961 (5) COVID-19 ICD Codes: U07.1 - COVID-19 SNOMED: 183528096 Status: stable Assessment/Plan: Continue current treatment. Supplemental oxygen and breathing treatments if needed. Continue pain regimen. Continue cough treatment. skin care turn q2. ID follow up. monitor labs repeat covid 19 Subjective ROS Limited/Unobtainable: No Constitutional: Reports: malaise, weakness HEENT: Reports: no symptoms Cardiovascular: Reports: no symptoms Respiratory: Reports: cough, shortness of breath Gastrointestinal/Abdominal: Reports: no symptoms Genitourinary: Reports: no symptoms Neurologic/Psychiatric: Reports: anxiety, depressed Endocrine: Reports: no symptoms Hematologic/Lymphatic: Reports: anemia Allergies: Coded Allergies: CEFEPIME (Unverified Allergy, Unknown, 11/03/17) LEVOFLOXACIN (Unverified Allergy, Unknown, 11/03/17) PENICILLINS (Unverified Allergy, Unknown, 11/03/17) All Systems: reviewed and negative except above Subjective no new complaints. no chest pain. stable sob. remains on o2. still with some cough. Id and pulm noted. Objective Last 24 Hour Vital Signs Date Time Temp Pulse Resp B/P (MAP) Pulse Ox O2 Delivery O2 Flow Rate FiO2 10/24/19 08:55 97 130/65 10/24/19 08:52 98.0 97 20 130/65 (86) 95 10/24/19 08:00 Nasal Cannula 2.0 10/24/19 04:00 Nasal Cannula 2.0 10/24/19 00:00 Nasal Cannula 2.0 10/24/19 00:00 97.2 93 20 138/76 (96) 96 10/23/19 21:18 101 148/73 10/23/19 20:00 Nasal Cannula 2.0 10/23/19 20:00 97.6 97 18 148/77 (100) 97 10/23/19 16:04 97.5 10/23/19 16:00 88 10/23/19 15:58 Nasal Cannula 2.0 10/23/19 15:37 97.5 101 18 149/75 (99) 98 Intake and Output 10/23/19 10/24/19 19:00 07:00 Intake Total 250 ml 120 ml Output Total 10 ml 50 ml Balance 240 ml 70 ml Intake Oral 250 ml 120 ml Stool Total 10 ml 50 ml # Voids 2 2 Height (Feet): 5 Height (Inches): 5.00 Weight (Pounds): 385 Objective General Appearance: WD/WN, alert Neck: supple Cardiovascular: normal rate Respiratory/Chest: chest wall non-tender, lungs clear, normal breath sounds, no respiratory distress Abdomen: normal bowel sounds, non tender, soft, no organomegaly Edema: no edema noted Arm (L), no edema noted Arm (R), no edema noted Leg (L), no edema noted Leg (R), no edema noted Pedal (L), no edema noted Pedal (R), no edema noted Generalized Kenroy Mcgrath MD Oct 24, 2019 12:31
[2019-10-24] MEDS: HYDROcodone/Acetamin 10/325 tab ORAL PRN (13:05)
[2019-10-24 16:00] VITALS: BP 135/82
[2019-10-24 17:09] LABS: BASOPHILS % (AUTO) 1.2 % (0.0-2.0); EOSINOPHILS % (AUTO) 0.1 % (0.0-3.0); HEMATOCRIT 41.6 % (37.0-47.0); HEMOGLOBIN 12.5 G/DL (12.0-16.0); MEAN CORPUSCULAR VOLUME 93 FL (80-99); MONOCYTES % (AUTO) 12.5 % (1.0-10.0); NEUTROPHILS % (AUTO) 63.2 % (45.0-75.0); PLATELET COUNT 354 K/UL (150-450); RED BLOOD COUNT 4.46 M/UL (4.20-5.40); RED CELL DISTRIBUTION WIDTH 18.4 % (11.6-14.8); WHITE BLOOD COUNT 5.2 K/UL (4.8-10.8)
[2019-10-24 17:39] LABS: ALANINE AMINOTRANSFERASE 24 U/L (12-78); ALBUMIN 2.8 G/DL (3.4-5.0); ALBUMIN/GLOBULIN RATIO 0.8 (1.0-2.7); ALKALINE PHOSPHATASE 70 U/L (46-116); ANION GAP 8 mmol/L (5-15); ASPARTATE AMINO TRANSFERASE 24 U/L (15-37); BILIRUBIN,TOTAL 0.5 MG/DL (0.2-1.0); BLOOD UREA NITROGEN 7 mg/dL (7-18); CALCIUM 8.8 MG/DL (8.5-10.1); CARBON DIOXIDE 37 MMOL/L (21-32); CHLORIDE 100 MMOL/L (98-107); CREATININE 0.6 MG/DL (0.55-1.30); POTASSIUM 3.4 MMOL/L (3.5-5.1); SODIUM 145 MMOL/L (136-145)
--- NOTE | 2019-10-24 19:15 | NUR ---
HAND-OFF: Report given to MARKUS Echevarria. Patient in stable condition.
--- NOTE | 2019-10-24 19:16 | NUR ---
NURSE NOTES: received pt from Madhu APARICIO., pt is awake and AOx3 and confused. pt has 2L of NC no SOB noted. rectal tube in place intact and draining well. Left FA 18G intact, clean, and patent. call light within reach. bed at the lowest position, alarmed, and locked. will continue to monitor pt with plan of care.
[2019-10-24 20:00] VITALS: BP 130/64
[2019-10-24] MEDS: clonazePAM 0.5mg tab ORAL SCH (21:34)
[2019-10-25] VITALS: BP 135/70
--- NOTE | 2019-10-25 02:15 | Progress Note ---
DATE: 10/24/2019 CARDIOLOGY PROGRESS NOTE SUBJECTIVE: The patient remains on low-dose oxygen, some coughing noted, minimal congestion and shortness of breath. PHYSICAL EXAMINATION: VITAL SIGNS: Blood pressure 130/65, pulse 97, respirations 20, sinus tachycardia. LUNGS: Coarse breath sounds, rhonchi. CARDIAC: Regular rhythm and rate . Normal S1, S2. ABDOMEN: Soft. EXTREMITIES: Trace edema. LABORATORY DATA: Sodium 145, potassium 3.4, magnesium 1.9, bicarb 37, BUN 7, creatinine 0.6. White count 5.3, hemoglobin 12.5. IMPRESSION: 1. Sinus tachycardia. 2. COVID-19 pneumonia. 3. COPD. 4. Hypertensive heart disease. PLAN: 1. Discontinue beta agonist. 2. Maintain adequate hydration. 3. Replace potassium. 4. Respiratory hygiene. Carlos Eduardo Andino M.D. DR: TONY JOB#: [id number] CC:
--- NOTE | 2019-10-25 03:47 | NUR ---
NURSE NOTES: cleaned pt, provided new gown, provided oral care, and pt reposition her self at this moment. pt does not show SOB at this moment.
[2019-10-25 04:00] VITALS: BP 137/73
[2019-10-25] MEDS: Lyrica 75mg cap ORAL SCH ×3 (05:34→21:46)
--- NOTE | 2019-10-25 07:17 | NUR ---
HAND-OFF: Report given to Shannon APARICIO. pt remains stable at this moment. endorsed plan of care.
--- NOTE | 2019-10-25 07:18 | NUR ---
NURSE NOTES: Received patient in bed. In no apparent distress. On nasal cannula at 4LPM. Denies shortness of breath at this time. Droplet isolation observed. Call light within reach. Will continue plan of care.
[2019-10-25 07:40] LABS: ALANINE AMINOTRANSFERASE 22 U/L (12-78); ALBUMIN 2.3 G/DL (3.4-5.0); ALBUMIN/GLOBULIN RATIO 0.5 (1.0-2.7); ALKALINE PHOSPHATASE 64 U/L (46-116); ANION GAP 6 mmol/L (5-15); ASPARTATE AMINO TRANSFERASE 45 U/L (15-37); BILIRUBIN,TOTAL 0.6 MG/DL (0.2-1.0); BLOOD UREA NITROGEN 8 mg/dL (7-18); CALCIUM 8.8 MG/DL (8.5-10.1); CARBON DIOXIDE 35 MMOL/L (21-32); CHLORIDE 100 MMOL/L (98-107); CREATININE 0.7 MG/DL (0.55-1.30); POTASSIUM 4.5 MMOL/L (3.5-5.1); SODIUM 141 MMOL/L (136-145)
[2019-10-25 08:00] VITALS: BP 122/59
--- NOTE | 2019-10-25 08:56 | General Progress Note ---
Assessment/Plan Problem List: (1) COPD with asthma ICD Codes: J44.9 - Chronic obstructive pulmonary disease, unspecified SNOMED: 66503602763278487 (2) Seizure ICD Codes: R56.9 - Unspecified convulsions SNOMED: 78768915 (3) CVA (cerebral vascular accident) ICD Codes: I63.9 - Cerebral infarction, unspecified SNOMED: 372937590 (4) Functional quadriplegia ICD Codes: R53.2 - Functional quadriplegia SNOMED: 972848531751636 (5) COVID-19 ICD Codes: U07.1 - COVID-19 SNOMED: 593216358 Status: stable Assessment/Plan: Continue current treatment. Supplemental oxygen and breathing treatments if needed. Continue pain regimen. Continue cough treatment. skin care turn q2. ID follow up. monitor labs repeat covid 19 today Subjective ROS Limited/Unobtainable: No Constitutional: Reports: malaise, weakness HEENT: Reports: no symptoms Cardiovascular: Reports: no symptoms Respiratory: Reports: cough, shortness of breath Gastrointestinal/Abdominal: Reports: no symptoms Genitourinary: Reports: no symptoms Neurologic/Psychiatric: Reports: no symptoms Endocrine: Reports: no symptoms Hematologic/Lymphatic: Reports: anemia Allergies: Coded Allergies: CEFEPIME (Unverified Allergy, Unknown, 11/03/17) LEVOFLOXACIN (Unverified Allergy, Unknown, 11/03/17) PENICILLINS (Unverified Allergy, Unknown, 11/03/17) All Systems: reviewed and negative except above Subjective no new complaints. no chest pain. stable sob. remains on o2. still with some cough. Id and pulm noted.per RN covid 19 swab from Saturday negative Objective Last 24 Hour Vital Signs Date Time Temp Pulse Resp B/P (MAP) Pulse Ox O2 Delivery O2 Flow Rate FiO2 10/25/19 08:00 97.9 104 20 122/59 (80) 92 10/25/19 07:00 78 20 97 Nasal Cannula 2.0 28 10/25/19 07:00 97 Nasal Cannula 2.0 28 10/25/19 04:00 Nasal Cannula 2.0 10/25/19 04:00 98.0 78 19 137/73 (94) 97 10/25/19 00:00 97.7 89 20 135/70 (91) 98 10/25/19 00:00 Nasal Cannula 2.0 10/24/19 21:35 96 130/64 10/24/19 20:00 97.9 96 18 130/64 (86) 97 10/24/19 20:00 Nasal Cannula 2.0 10/24/19 19:44 84 20 97 Nasal Cannula 2.0 28 10/24/19 19:44 97 Nasal Cannula 2.0 28 10/24/19 16:00 97.5 86 21 135/82 (99) 97 10/24/19 16:00 Nasal Cannula 2.0 10/24/19 13:34 98.0 10/24/19 13:34 98.0 10/24/19 12:00 97.7 108 20 130/84 (99) 100 10/24/19 12:00 Nasal Cannula 2.0 Intake and Output 10/24/19 10/25/19 19:00 07:00 Intake Total 300 ml 160 ml Output Total 50 ml 40 ml Balance 250 ml 120 ml Intake Oral 300 ml 160 ml Stool Total 50 ml 40 ml # Voids 2 2 Laboratory Tests 10/24/19 16:15: White Blood Count 5.2, Red Blood Count 4.46, Hemoglobin 12.5, Hematocrit 41.6, Mean Corpuscular Volume 93, Mean Corpuscular Hemoglobin 28.0, Mean Corpuscular Hemoglobin Concent 30.0L, Red Cell Distribution Width 18.4H, Platelet Count 354 , Mean Platelet Volume 7.5, Neutrophils (%) (Auto) 63.2, Lymphocytes (%) (Auto) 23.0, Monocytes (%) (Auto) 12.5H, Eosinophils (%) (Auto) 0.1, Basophils (%) ( Auto) 1.2, Sodium Level 145, Potassium Level 3.4L, Chloride Level 100, Carbon Dioxide Level 37H, Anion Gap 8, Blood Urea Nitrogen 7, Creatinine 0.6, Estimat Glomerular Filtration Rate > 60, Glucose Level 81, Calcium Level 8.8, Magnesium Level 1.9, Total Bilirubin 0.5, Aspartate Amino Transf (AST/SGOT) 24, Alanine Aminotransferase (ALT/SGPT) 24, Alkaline Phosphatase 70, Pro-B-Type Natriuretic Peptide 245H, Total Protein 6.4, Albumin 2.8L, Globulin 3.6, Albumin/Globulin Ratio 0.8L 10/25/19 05:59: Sodium Level 141, Potassium Level 4.5, Chloride Level 100, Carbon Dioxide Level 35H, Anion Gap 6, Blood Urea Nitrogen 8, Creatinine 0.7, Estimat Glomerular Filtration Rate > 60, Glucose Level 75, Calcium Level 8.8, Total Bilirubin 0.6, Aspartate Amino Transf (AST/SGOT) 45H, Alanine Aminotransferase (ALT/SGPT) 22, Alkaline Phosphatase 64, Total Protein 6.5, Albumin 2.3L, Globulin 4.2, Albumin/ Globulin Ratio 0.5L, C-Reactive Protein, Quantitative 5.6H Height (Feet): 5 Height (Inches): 5.00 Weight (Pounds): 385 Objective General Appearance: WD/WN, alert Neck: supple Cardiovascular: normal rate Respiratory/Chest: chest wall non-tender, lungs clear, normal breath sounds, no respiratory distress Abdomen: normal bowel sounds, non tender, soft, no organomegaly Edema: no edema noted Arm (L), no edema noted Arm (R), no edema noted Leg (L), no edema noted Leg (R), no edema noted Pedal (L), no edema noted Pedal (R), no edema noted Generalized Kenroy Mcgrath MD Oct 25, 2019 08:56
[2019-10-25] MEDS: Carvedilol 12.5mg tab ORAL SCH ×2 (09:00→21:43)
[2019-10-25] MEDS: Sensipar 30mg Tab ORAL SCH (09:00)
[2019-10-25] MEDS: guaiFENesin ER 600mg tab ORAL SCH ×2 (09:00→21:45)
[2019-10-25] MEDS: Aspirin Baby 81mg ORAL SCH (09:00)
[2019-10-25] MEDS: Ascorbic Acid 500mg tab ORAL SCH ×2 (09:00→21:45)
[2019-10-25] MEDS: Lacosamide 50mg tablet ORAL SCH ×2 (09:00→21:44)
--- NOTE | 2019-10-25 09:00 | NUR ---
NURSE NOTES: Patient refused all oral medication. She verbalized that she want to sleep some more.
[2019-10-25] MEDS ORDERED: HYDROcodone/Acetamin 10/325 tab ORAL PRN (09:15)
[2019-10-25] MEDS: Heparin 5000 units/ml inj SUBQ SCH ×2 (09:26→21:24)
[2019-10-25] MEDS: Ipratropium Bromide Inhaler INH SCH ×2 (11:14→19:46)
[2019-10-25 12:00] VITALS: BP 128/71
--- NOTE | 2019-10-25 12:20 | NUR ---
NURSE NOTES: Dr. Keiry Arroyo at bedside. Informed regarding negative Covid-19 result today.
--- NOTE | 2019-10-25 12:21 | Infectious Diseases Prog Note ---
Assessment/Plan Assessment/Plan A 1. COVID 19 pneumonia - Tests are positive on 10/09, 10/15 , 10/16 & 10/18 - Test is negative on 10/22 2. COPD 3. asthma 4. CVA 5. seizures 6. Hypokalemia, corrected P 1. repeat COVID19 tests 2. continue isolation Subjective ROS Limited/Unobtainable: Yes Allergies: Coded Allergies: CEFEPIME (Unverified Allergy, Unknown, 11/03/17) LEVOFLOXACIN (Unverified Allergy, Unknown, 11/03/17) PENICILLINS (Unverified Allergy, Unknown, 11/03/17) Objective Vital Signs Last 24 Hour Vital Signs Date Time Temp Pulse Resp B/P (MAP) Pulse Ox O2 Delivery O2 Flow Rate FiO2 10/25/19 09:00 104 122/59 10/25/19 09:00 Nasal Cannula 4.0 10/25/19 08:00 97.9 104 20 122/59 (80) 92 10/25/19 07:00 78 20 97 Nasal Cannula 2.0 28 10/25/19 07:00 97 Nasal Cannula 2.0 28 10/25/19 04:00 Nasal Cannula 2.0 10/25/19 04:00 98.0 78 19 137/73 (94) 97 10/25/19 00:00 97.7 89 20 135/70 (91) 98 10/25/19 00:00 Nasal Cannula 2.0 10/24/19 21:35 96 130/64 10/24/19 20:00 97.9 96 18 130/64 (86) 97 10/24/19 20:00 Nasal Cannula 2.0 10/24/19 19:44 84 20 97 Nasal Cannula 2.0 28 10/24/19 19:44 97 Nasal Cannula 2.0 28 10/24/19 16:00 97.5 86 21 135/82 (99) 97 10/24/19 16:00 Nasal Cannula 2.0 10/24/19 13:34 98.0 10/24/19 13:34 98.0 Height (Feet): 5 Height (Inches): 5.00 Weight (Pounds): 385 General Appearance: no acute distress HEENT: mucous membranes moist Respiratory/Chest: lungs clear, other - oxygen by nasal cannula Cardiovascular: tachycardia Abdomen: soft, non tender Extremities: other - edema Microbiology Date/Time Source Procedure Growth Status 10/23/19 13:48 Nasopharynx Coronavirus COVID-19 PCR (ABDIAZIZ) - Final Complete Laboratory Tests Test 10/24/19 16:15 10/25/19 05:59 White Blood Count 5.2 K/UL (4.8-10.8) Red Blood Count 4.46 M/UL (4.20-5.40) Hemoglobin 12.5 G/DL (12.0-16.0) Hematocrit 41.6 % (37.0-47.0) Mean Corpuscular Volume 93 FL (80-99) Mean Corpuscular Hemoglobin 28.0 PG (27.0-31.0) Mean Corpuscular Hemoglobin Concent 30.0 G/DL (32.0-36.0) L Red Cell Distribution Width 18.4 % (11.6-14.8) H Platelet Count 354 K/UL (150-450) Mean Platelet Volume 7.5 FL (6.5-10.1) Neutrophils (%) (Auto) 63.2 % (45.0-75.0) Lymphocytes (%) (Auto) 23.0 % (20.0-45.0) Monocytes (%) (Auto) 12.5 % (1.0-10.0) H Eosinophils (%) (Auto) 0.1 % (0.0-3.0) Basophils (%) (Auto) 1.2 % (0.0-2.0) Sodium Level 145 MMOL/L (136-145) 141 MMOL/L (136-145) Potassium Level 3.4 MMOL/L (3.5-5.1) L 4.5 MMOL/L (3.5-5.1) Chloride Level 100 MMOL/L (98-107) 100 MMOL/L (98-107) Carbon Dioxide Level 37 MMOL/L (21-32) H 35 MMOL/L (21-32) H Anion Gap 8 mmol/L (5-15) 6 mmol/L (5-15) Blood Urea Nitrogen 7 mg/dL (7-18) 8 mg/dL (7-18) Creatinine 0.6 MG/DL (0.55-1.30) 0.7 MG/DL (0.55-1.30) Estimat Glomerular Filtration Rate > 60 mL/min (>60) > 60 mL/min (>60) Glucose Level 81 MG/DL (74-106) 75 MG/DL (74-106) Calcium Level 8.8 MG/DL (8.5-10.1) 8.8 MG/DL (8.5-10.1) Magnesium Level 1.9 MG/DL (1.8-2.4) Total Bilirubin 0.5 MG/DL (0.2-1.0) 0.6 MG/DL (0.2-1.0) Aspartate Amino Transf (AST/SGOT) 24 U/L (15-37) 45 U/L (15-37) H Alanine Aminotransferase (ALT/SGPT) 24 U/L (12-78) 22 U/L (12-78) Alkaline Phosphatase 70 U/L (46-116) 64 U/L (46-116) Pro-B-Type Natriuretic Peptide 245 pg/mL (0-125) H Total Protein 6.4 G/DL (6.4-8.2) 6.5 G/DL (6.4-8.2) Albumin 2.8 G/DL (3.4-5.0) L 2.3 G/DL (3.4-5.0) L Globulin 3.6 g/dL 4.2 g/dL Albumin/Globulin Ratio 0.8 (1.0-2.7) L 0.5 (1.0-2.7) L C-Reactive Protein, Quantitative 5.6 mg/dL (0.00-0.90) H Current Medications Medications (Trade) Dose Ordered Sig/Saira Route PRN Reason Start Time Stop Time Status Last Admin Dose Admin Acetaminophen (Tylenol) 650 mg Q6H PRN ORAL Mild Pain/Temp > 100.5 10/10/19 23:30 11/09/19 23:29 10/19/19 10:50 Acetaminophen/ Hydrocodone Bitart ([place] 10/325) 1 tab Q4H PRN ORAL Pain 4-10 10/25/19 09:15 10/29/19 21:14 Ascorbic Acid (Vitamin C) 500 mg TWICE A DAY ORAL 10/13/19 15:00 11/12/19 14:59 10/24/19 17:34 Aspirin (ASA) 81 mg DAILY ORAL 10/11/19 09:00 11/25/19 08:59 10/24/19 08:55 Atorvastatin Calcium (Lipitor) 10 mg BEDTIME ORAL 10/11/19 21:00 01/09/20 20:59 10/24/19 21:34 Carvedilol (Coreg) 12.5 mg EVERY 12 HOURS ORAL 10/23/19 21:00 11/19/19 20:59 10/24/19 21:35 Cinacalcet (Sensipar) 30 mg DAILY ORAL 10/11/19 09:00 01/09/20 08:59 10/24/19 08:55 Clonazepam (KlonoPIN) 0.5 mg BEDTIME ORAL 10/21/19 21:00 10/28/19 20:59 10/24/19 21:34 Duloxetine HCl (Cymbalta) 60 mg DAILY ORAL 10/15/19 09:00 01/09/20 08:59 10/24/19 08:54 Ferrous Sulfate (Feosol) 325 mg TID ORAL 10/11/19 09:00 01/09/20 08:59 10/24/19 17:34 Folic Acid (Folate) 1 mg DAILY ORAL 10/11/19 09:00 11/10/19 08:59 10/24/19 08:55 Guaifenesin (Mucinex ER) 600 mg TWICE A DAY ORAL 10/15/19 09:00 01/13/20 08:59 10/24/19 17:34 Guaifenesin (Robitussin) 100 mg Q4H PRN ORAL cough 10/10/19 23:30 01/08/20 23:29 10/11/19 20:32 Heparin Sodium (Porcine) (Heparin 5000 units/ml) 5,000 units EVERY 12 HOURS SUBQ 10/11/19 09:00 11/25/19 08:59 10/25/19 09:26 Ipratropium [place] (Atrovent Inh) 1 puffs BID INH 10/25/19 09:00 11/24/19 08:59 10/25/19 11:14 Lacosamide (Vimpat) 100 mg Q12HR ORAL 10/11/19 09:00 01/09/20 08:59 10/24/19 21:35 Lidocaine (Lidoderm 5% PATCH) 3 patch DAILY TDERMAL 10/11/19 09:00 01/09/20 08:59 10/25/19 09:26 Magnesium Hydroxide (Mom) 30 ml DAILY PRN ORAL Constipation 10/10/19 23:30 11/09/19 23:29 10/12/19 18:23 Pantoprazole (Protonix) 40 mg EVERY 12 HOURS ORAL 10/11/19 09:00 11/10/19 08:59 10/24/19 21:35 Pregabalin (Lyrica) 150 mg Q8HR ORAL 10/11/19 06:00 11/10/19 05:59 10/25/19 05:34 Promethazine HCl/ Codeine (Phenergan with Codeine) 5 ml Q4H PRN ORAL For Cough 10/10/19 23:30 11/09/19 23:29 10/19/19 17:03 Chris Arroyo MD Oct 25, 2019 12:21
--- NOTE | 2019-10-25 12:57 | Pulmonology Progress Note ---
Assessment/Plan Assessment/Plan IMPRESSION: Pulmonary infection, asthma, wheezing, history of VRE, COVID positive, stroke. PLAN respiratory care reviewed monitor for change and optimize ID follow up reviewed off antibiotics isolation per ID DVT prophylaxis dc planning oxygen needs minimal no worsening in pulmonary status per review impression, plan, and exam edited and reviewed in detail care discussed with RN Subjective Allergies: Coded Allergies: CEFEPIME (Unverified Allergy, Unknown, 11/03/17) LEVOFLOXACIN (Unverified Allergy, Unknown, 11/03/17) PENICILLINS (Unverified Allergy, Unknown, 11/03/17) Subjective care noted overnight comfortable as is no distress noted on oxygen /confused Objective Last 24 Hour Vital Signs Date Time Temp Pulse Resp B/P (MAP) Pulse Ox O2 Delivery O2 Flow Rate FiO2 10/25/19 09:00 104 122/59 10/25/19 09:00 Nasal Cannula 4.0 10/25/19 08:00 97.9 104 20 122/59 (80) 92 10/25/19 07:00 78 20 97 Nasal Cannula 2.0 28 10/25/19 07:00 97 Nasal Cannula 2.0 28 10/25/19 04:00 Nasal Cannula 2.0 10/25/19 04:00 98.0 78 19 137/73 (94) 97 10/25/19 00:00 97.7 89 20 135/70 (91) 98 10/25/19 00:00 Nasal Cannula 2.0 10/24/19 21:35 96 130/64 10/24/19 20:00 97.9 96 18 130/64 (86) 97 10/24/19 20:00 Nasal Cannula 2.0 10/24/19 19:44 84 20 97 Nasal Cannula 2.0 28 10/24/19 19:44 97 Nasal Cannula 2.0 28 10/24/19 16:00 97.5 86 21 135/82 (99) 97 10/24/19 16:00 Nasal Cannula 2.0 10/24/19 13:34 98.0 10/24/19 13:34 98.0 Intake and Output 10/24/19 10/25/19 19:00 07:00 Intake Total 300 ml 160 ml Output Total 50 ml 40 ml Balance 250 ml 120 ml Intake Oral 300 ml 160 ml Stool Total 50 ml 40 ml # Voids 2 2 Objective WDWN NAD clear breath sounds bilaterally without rhonchi or wheeze [id number] without MRG NABS nontender no HSM no CCE nonfocal reviewed and edited Microbiology Date/Time Source Procedure Growth Status 10/23/19 13:48 Nasopharynx Coronavirus COVID-19 PCR (ABDIAZIZ) - Final Complete Laboratory Tests 10/24/19 16:15: White Blood Count 5.2, Red Blood Count 4.46, Hemoglobin 12.5, Hematocrit 41.6, Mean Corpuscular Volume 93, Mean Corpuscular Hemoglobin 28.0, Mean Corpuscular Hemoglobin Concent 30.0L, Red Cell Distribution Width 18.4H, Platelet Count 354 , Mean Platelet Volume 7.5, Neutrophils (%) (Auto) 63.2, Lymphocytes (%) (Auto) 23.0, Monocytes (%) (Auto) 12.5H, Eosinophils (%) (Auto) 0.1, Basophils (%) ( Auto) 1.2, Sodium Level 145, Potassium Level 3.4L, Chloride Level 100, Carbon Dioxide Level 37H, Anion Gap 8, Blood Urea Nitrogen 7, Creatinine 0.6, Estimat Glomerular Filtration Rate > 60, Glucose Level 81, Calcium Level 8.8, Magnesium Level 1.9, Total Bilirubin 0.5, Aspartate Amino Transf (AST/SGOT) 24, Alanine Aminotransferase (ALT/SGPT) 24, Alkaline Phosphatase 70, Pro-B-Type Natriuretic Peptide 245H, Total Protein 6.4, Albumin 2.8L, Globulin 3.6, Albumin/Globulin Ratio 0.8L 10/25/19 05:59: Sodium Level 141, Potassium Level 4.5, Chloride Level 100, Carbon Dioxide Level 35H, Anion Gap 6, Blood Urea Nitrogen 8, Creatinine 0.7, Estimat Glomerular Filtration Rate > 60, Glucose Level 75, Calcium Level 8.8, Total Bilirubin 0.6, Aspartate Amino Transf (AST/SGOT) 45H, Alanine Aminotransferase (ALT/SGPT) 22, Alkaline Phosphatase 64, Total Protein 6.5, Albumin 2.3L, Globulin 4.2, Albumin/ Globulin Ratio 0.5L, C-Reactive Protein, Quantitative 5.6H Current Medications Medications (Trade) Dose Ordered Sig/Saira Route PRN Reason Start Time Stop Time Status Last Admin Dose Admin Acetaminophen (Tylenol) 650 mg Q6H PRN ORAL Mild Pain/Temp > 100.5 10/10/19 23:30 11/09/19 23:29 10/19/19 10:50 Acetaminophen/ Hydrocodone Bitart ([place] 10/325) 1 tab Q4H PRN ORAL Pain 4-10/25/19 09:15 10/29/19 21:14 Ascorbic Acid (Vitamin C) 500 mg TWICE A DAY ORAL 10/13/19 15:00 11/12/19 14:59 10/24/19 17:34 Aspirin (ASA) 81 mg DAILY ORAL 10/11/19 09:00 11/25/19 08:59 10/24/19 08:55 Atorvastatin Calcium (Lipitor) 10 mg BEDTIME ORAL 10/11/19 21:00 01/09/20 20:59 10/24/19 21:34 Carvedilol (Coreg) 12.5 mg EVERY 12 HOURS ORAL 10/23/19 21:00 11/19/19 20:59 10/24/19 21:35 Cinacalcet (Sensipar) 30 mg DAILY ORAL 10/11/19 09:00 01/09/20 08:59 10/24/19 08:55 Clonazepam (KlonoPIN) 0.5 mg BEDTIME ORAL 10/21/19 21:00 10/28/19 20:59 10/24/19 21:34 Duloxetine HCl (Cymbalta) 60 mg DAILY ORAL 10/15/19 09:00 01/09/20 08:59 10/24/19 08:54 Ferrous Sulfate (Feosol) 325 mg TID ORAL 10/11/19 09:00 01/09/20 08:59 10/24/19 17:34 Folic Acid (Folate) 1 mg DAILY ORAL 10/11/19 09:00 11/10/19 08:59 10/24/19 08:55 Guaifenesin (Mucinex ER) 600 mg TWICE A DAY ORAL 10/15/19 09:00 01/13/20 08:59 10/24/19 17:34 Guaifenesin (Robitussin) 100 mg Q4H PRN ORAL cough 10/10/19 23:30 01/08/20 23:29 10/11/19 20:32 Heparin Sodium (Porcine) (Heparin 5000 units/ml) 5,000 units EVERY 12 HOURS SUBQ 10/11/19 09:00 11/25/19 08:59 10/25/19 09:26 Ipratropium [place] (Atrovent Inh) 1 puffs BID INH 10/25/19 09:00 11/24/19 08:59 10/25/19 11:14 Lacosamide (Vimpat) 100 mg Q12HR ORAL 10/11/19 09:00 01/09/20 08:59 10/24/19 21:35 Lidocaine (Lidoderm 5% PATCH) 3 patch DAILY TDERMAL 10/11/19 09:00 01/09/20 08:59 10/25/19 09:26 Magnesium Hydroxide (Mom) 30 ml DAILY PRN ORAL Constipation 10/10/19 23:30 11/09/19 23:29 10/12/19 18:23 Pantoprazole (Protonix) 40 mg EVERY 12 HOURS ORAL 10/11/19 09:00 11/10/19 08:59 10/24/19 21:35 Pregabalin (Lyrica) 150 mg Q8HR ORAL 10/11/19 06:00 11/10/19 05:59 10/25/19 05:34 Promethazine HCl/ Codeine (Phenergan with Codeine) 5 ml Q4H PRN ORAL For Cough 10/10/19 23:30 11/09/19 23:29 10/19/19 17:03 Darrel Schuster MD Oct 25, 2019 12:57
--- NOTE | 2019-10-25 13:00 | NUR ---
NURSE NOTES: Covid-19 swab order not done, specimen swab for collection not available at this time per charge nurse/Migdalia.
[2019-10-25] MEDS ORDERED: NS 275ml ONE (14:16)
[2019-10-25 16:00] VITALS: BP 137/100
--- NOTE | 2019-10-25 19:05 | NUR ---
NURSE NOTES: Received patient and report from MARKUS Ortega. Patient is observed resting in bed and remains alert and oriented x3-4. No pain noted upon assessment. Pt is currently on 2L NC with no s/sx of acute distress. Other nursing order entered by Dr Andino to D/C tele monitoring, however pt exhibits no s/sx of acute distress. Left FA 18g IV catheter noted which remains asymptomatic, intact and patent. Rectal tube noted which remains patent and draining to gravity. Diagnostics reviewed. Skin alterations noted. Fall and Aspiration precautions observed. Pt remains resting in bed; Bed remains in the lowest position with the safety wheels engaged, call light within reach, side rails up x3 and bed alarm activated. Will continue plan of care. Will continue to monitor.
--- NOTE | 2019-10-25 19:10 | NUR ---
HAND-OFF: Report given to Osiris De Leon RN.
[2019-10-25 20:00] VITALS: BP 131/70
--- NOTE | 2019-10-25 20:00 | NUR ---
TRANSFER TO FLOOR: Patient transferred to 4E, per order. Report given to MARKUS Mota. Belongings transferred with patient. Family informed of transfer.
[2019-10-25] MEDS ORDERED: Promethazine/Codeine 5ml UD ORAL PRN (20:30)
[2019-10-25] MEDS ORDERED: guaiFENesin 100mg/5ml Liq ud ORAL PRN (20:30)
--- NOTE | 2019-10-25 20:30 | NUR ---
NURSE NOTES: Received report from MARKUS Avila ELVIS. AAO x 3, on NC 4L. Pt has rectal tube and dark green diarrhea noted. IV intact and patent. Need to do covid swabx1 but unable to do at this time due to shortage of covid kit from ED. All belongings reviewed. Orientation given to the room. Contact and Droplet precaution maintained. Bed locked, lowest position, alarm on, side rails up, call light within reach. Will continue to monitor.
--- NOTE | 2019-10-25 20:30 | NUR ---
NURSE NOTES: Called to notify POA of transfer to . LMOM with new phone number to reach sister.
[2019-10-25] MEDS ORDERED: guaiFENesin ER 600mg tab ORAL SCH (21:00)
[2019-10-25] MEDS ORDERED: Ascorbic Acid 500mg tab ORAL SCH (21:00)
[2019-10-25] MEDS: clonazePAM 0.5mg tab ORAL SCH (21:44)
[2019-10-26] VITALS: BP 145/100
[2019-10-26 04:00] VITALS: BP 121/61
--- NOTE | 2019-10-26 04:45 | Progress Note ---
DATE: 10/25/2019 CARDIOLOGY PROGRESS NOTE SUBJECTIVE: Blood pressure parameters stable. Monitored sinus rhythm. Respiratory parameters improved. Remains on isolation for COVID-19. The patient not examined today due to isolation issues. LABORATORY DATA: Notable for sodium 141, potassium 4.5, bicarb 35, BUN 8, and creatinine 0.7. Albumin 2.3. IMPRESSION: Improved. PLAN: 1. No change in cardiovascular regimen. 2. Continue respiratory hygiene. 3. Protein supplement. 4. DVT prophylaxis. 5. Oxygenation. Carlos Eduardo Andino M.D. DR: JUDY JOB#: [id number] CC:
[2019-10-26] MEDS: Lyrica 75mg cap ORAL SCH ×3 (05:37→21:26)
--- NOTE | 2019-10-26 06:44 | NUR ---
NURSE NOTES: Collected swab for covid and sent to the lab.
--- NOTE | 2019-10-26 07:25 | NUR ---
NURSE NOTES: Received patient in bed. Awake, A/O x3. On 4 lpm via NC. Patient denies pain. IV in the Left upper arm, site is intact. Rectal tube in place. Side rails up x2, bed low and locked, call light within reach.
--- NOTE | 2019-10-26 07:26 | General Progress Note ---
Assessment/Plan Problem List: (1) COPD with asthma ICD Codes: J44.9 - Chronic obstructive pulmonary disease, unspecified SNOMED: 16621619569650290 (2) Seizure ICD Codes: R56.9 - Unspecified convulsions SNOMED: 18299881 (3) CVA (cerebral vascular accident) ICD Codes: I63.9 - Cerebral infarction, unspecified SNOMED: 637351397 (4) Functional quadriplegia ICD Codes: R53.2 - Functional quadriplegia SNOMED: 337206059942260 (5) COVID-19 ICD Codes: U07.1 - COVID-19 SNOMED: 708791495 Status: stable Assessment/Plan: Continue current treatment. Supplemental oxygen and breathing treatments if needed. check cxr. lasix x 1. Continue pain regimen. Continue cough treatment. skin care turn q2. ID follow up. monitor labs. needs 2 negative covid 19 pcr before discharge Subjective ROS Limited/Unobtainable: No Constitutional: Reports: malaise, weakness HEENT: Reports: no symptoms Cardiovascular: Reports: no symptoms Respiratory: Reports: cough Gastrointestinal/Abdominal: Reports: no symptoms Genitourinary: Reports: no symptoms Neurologic/Psychiatric: Reports: no symptoms Endocrine: Reports: no symptoms Hematologic/Lymphatic: Reports: no symptoms Allergies: Coded Allergies: CEFEPIME (Unverified Allergy, Unknown, 11/03/17) LEVOFLOXACIN (Unverified Allergy, Unknown, 11/03/17) PENICILLINS (Unverified Allergy, Unknown, 11/03/17) All Systems: reviewed and negative except above Subjective no new complaints. no chest pain. stable sob.increased o2 requirements noted. no fevers. Objective Last 24 Hour Vital Signs Date Time Temp Pulse Resp B/P (MAP) Pulse Ox O2 Delivery O2 Flow Rate FiO2 10/26/19 04:00 97.1 99 19 121/61 (81) 98 10/26/19 00:00 96.6 99 19 145/100 (115) 97 10/25/19 21:43 109 131/70 10/25/19 21:00 Nasal Cannula 4.0 10/25/19 20:00 99.6 109 20 131/70 (90) 100 10/25/19 19:47 77 18 99 Nasal Cannula 2.0 28 10/25/19 19:46 75 20 98 Nasal Cannula 4.0 36 10/25/19 19:46 76 18 99 Nasal Cannula 2.0 10/25/19 19:46 98 Nasal Cannula 4.0 36 10/25/19 16:00 97.7 102 20 137/100 (112) 99 10/25/19 12:00 97.0 91 20 128/71 (90) 92 10/25/19 09:00 104 122/59 10/25/19 09:00 Nasal Cannula 4.0 10/25/19 08:00 97.9 104 20 122/59 (80) 92 Intake and Output 10/25/19 10/26/19 19:00 07:00 Intake Total 360 ml 500 ml Output Total 10 ml 30 ml Balance 350 ml 470 ml Intake Oral 360 ml 500 ml Stool Total 10 ml 30 ml # Voids 1 3 Height (Feet): 5 Height (Inches): 5.00 Weight (Pounds): 385 Objective General Appearance: WD/WN, alert Neck: supple Cardiovascular: normal rate Respiratory/Chest: chest wall non-tender, lungs clear, normal breath sounds, no respiratory distress Abdomen: normal bowel sounds, non tender, soft, no organomegaly Edema: no edema noted Arm (L), no edema noted Arm (R), no edema noted Leg (L), no edema noted Leg (R), no edema noted Pedal (L), no edema noted Pedal (R), no edema noted Generalized Kenroy Mcgrath MD Oct 26, 2019 07:26
[2019-10-26 08:00] VITALS: BP 110/67
--- NOTE | 2019-10-26 08:02 | NUR ---
HAND-OFF: Report given to MARKUS Chris.
--- NOTE | 2019-10-26 08:48 | Diagnostic Imaging Report ---
Indication: Reason For Exam: SOB Technique: One view of the chest Comparison: 10/10/2019 Findings: Habitus limits evaluation. There is suggestion of some hazy infiltrate in the left lower lung periphery and right lung base. This is not definitely evident previously. The heart is upper limits of normal in size. Impression: Questionable bilateral basilar hazy infiltrates, not definitely evident on prior exam of 10/10/2019
[2019-10-26] MEDS: Ipratropium Bromide Inhaler INH SCH ×2 (08:54→18:00)
--- NOTE | 2019-10-26 08:55 | NUR ---
RESPIRATORY NOTE: Pt is really lethargic, unable to take big breath to take the Albuterol MDI. RN Aries made aware. No SOB or resp distress noted.
[2019-10-26] MEDS ORDERED: Milk of Magnesia 30ml Ud ORAL PRN (09:00)
--- NOTE | 2019-10-26 09:09 | Pulmonology Progress Note ---
Assessment/Plan Assessment/Plan IMPRESSION: Pulmonary infection, asthma, wheezing, history of VRE, COVID positive, stroke. PLAN respiratory care reviewed monitor for change and optimize ID follow up reviewed off antibiotics isolation per ID DVT prophylaxis dc planning oxygen needs minimal no worsening in pulmonary status per review impression, plan, and exam edited and reviewed in detail care discussed with RN Subjective Allergies: Coded Allergies: CEFEPIME (Unverified Allergy, Unknown, 11/03/17) LEVOFLOXACIN (Unverified Allergy, Unknown, 11/03/17) PENICILLINS (Unverified Allergy, Unknown, 11/03/17) Subjective care noted overnight comfortable as is no distress noted on oxygen /confused Objective Last 24 Hour Vital Signs Date Time Temp Pulse Resp B/P (MAP) Pulse Ox O2 Delivery O2 Flow Rate FiO2 10/26/19 08:55 Nasal Cannula 4.0 36 10/26/19 08:55 87 20 96 Nasal Cannula 2.0 10/26/19 08:55 96 Nasal Cannula 4.0 36 10/26/19 04:00 97.1 99 19 121/61 (81) 98 10/26/19 00:00 96.6 99 19 145/100 (115) 97 10/25/19 21:43 109 131/70 10/25/19 21:00 Nasal Cannula 4.0 10/25/19 20:00 99.6 109 20 131/70 (90) 100 10/25/19 19:47 77 18 99 Nasal Cannula 2.0 28 10/25/19 19:46 75 20 98 Nasal Cannula 4.0 36 10/25/19 19:46 76 18 99 Nasal Cannula 2.0 10/25/19 19:46 98 Nasal Cannula 4.0 36 10/25/19 16:00 97.7 102 20 137/100 (112) 99 10/25/19 12:00 97.0 91 20 128/71 (90) 92 Intake and Output 10/25/19 10/26/19 19:00 07:00 Intake Total 360 ml 500 ml Output Total 10 ml 30 ml Balance 350 ml 470 ml Intake Oral 360 ml 500 ml Stool Total 10 ml 30 ml # Voids 1 3 Objective WDWN NAD clear breath sounds bilaterally without rhonchi or wheeze [id number] without MRG NABS nontender no HSM no CCE nonfocal reviewed and edited Microbiology Date/Time Source Procedure Growth Status 10/23/19 13:48 Nasopharynx Coronavirus COVID-19 PCR (ABDIAZIZ) - Final Complete Current Medications Medications (Trade) Dose Ordered Sig/Saira Route PRN Reason Start Time Stop Time Status Last Admin Dose Admin Acetaminophen (Tylenol) 650 mg Q6H PRN ORAL MILD/TEMP 10/25/19 20:30 11/09/19 20:29 Acetaminophen/ Hydrocodone Bitart ([place] 10/325) 1 tab Q4H PRN ORAL Pain 4-10 10/25/19 20:30 10/29/19 20:29 Ascorbic Acid (Vitamin C) 500 mg EVERY 12 HOURS ORAL 10/25/19 21:00 11/12/19 14:59 10/25/19 21:45 Aspirin (ASA) 81 mg DAILY ORAL 10/26/19 09:00 11/25/19 08:59 Atorvastatin Calcium (Lipitor) 10 mg BEDTIME ORAL 10/25/19 21:00 01/09/20 20:59 10/25/19 21:44 Carvedilol (Coreg) 12.5 mg EVERY 12 HOURS ORAL 10/25/19 21:00 11/19/19 20:59 10/25/19 21:43 Cinacalcet (Sensipar) 30 mg DAILY ORAL 10/26/19 09:00 01/09/20 08:59 Clonazepam (KlonoPIN) 0.5 mg BEDTIME ORAL 10/25/19 21:00 10/28/19 20:59 10/25/19 21:44 Duloxetine HCl (Cymbalta) 60 mg DAILY ORAL 10/26/19 09:00 01/09/20 08:59 Ferrous Sulfate (Feosol) 325 mg TID ORAL 10/26/19 09:00 01/09/20 08:59 Folic Acid (Folate) 1 mg DAILY ORAL 10/26/19 09:00 11/10/19 08:59 Guaifenesin (Mucinex ER) 600 mg EVERY 12 HOURS ORAL 10/25/19 21:00 01/13/20 08:59 10/25/19 21:45 Guaifenesin (Robitussin) 100 mg Q4H PRN ORAL cough 10/25/19 20:30 01/08/20 20:29 Heparin Sodium (Porcine) (Heparin 5000 units/ml) 5,000 units EVERY 12 HOURS SUBQ 10/25/19 21:00 11/25/19 08:59 10/25/19 21:24 Ipratropium [place] (Atrovent Inh) 1 puffs BID INH 10/26/19 09:00 11/24/19 08:59 Lacosamide (Vimpat) 100 mg Q12HR ORAL 10/25/19 21:00 01/09/20 08:59 10/25/19 21:44 Lidocaine (Lidoderm 5% PATCH) 3 patch DAILY TDERMAL 10/26/19 09:00 01/09/20 08:59 Magnesium Hydroxide (Mom) 30 ml DAILY PRN ORAL Constipation 10/26/19 09:00 11/09/19 23:29 Pantoprazole (Protonix) 40 mg EVERY 12 HOURS ORAL 10/25/19 21:00 11/10/19 08:59 Pregabalin (Lyrica) 150 mg Q8HR ORAL 10/25/19 22:00 11/10/19 05:59 10/26/19 05:37 Promethazine HCl/ Codeine (Phenergan with Codeine) 5 ml Q4H PRN ORAL For Cough 10/25/19 20:30 11/09/19 20:29 Darrel Schuster MD Oct 26, 2019 09:09
[2019-10-26] MEDS: Aspirin Baby 81mg ORAL SCH (09:19)
[2019-10-26] MEDS: Lacosamide 50mg tablet ORAL SCH ×2 (09:20→21:23)
[2019-10-26] MEDS: Heparin 5000 units/ml inj SUBQ SCH ×2 (09:20→21:28)
[2019-10-26] MEDS: Sensipar 30mg Tab ORAL SCH (09:20)
[2019-10-26] MEDS: Ascorbic Acid 500mg tab ORAL SCH ×2 (09:21→21:23)
[2019-10-26] MEDS: guaiFENesin ER 600mg tab ORAL SCH ×2 (09:21→21:21)
[2019-10-26] MEDS: Carvedilol 12.5mg tab ORAL SCH ×2 (09:21→21:22)
[2019-10-26 12:00] VITALS: BP 129/81
--- NOTE | 2019-10-26 12:08 | Infectious Diseases Prog Note ---
Assessment/Plan Assessment/Plan antibiotics : none A 1. covid 19 pneumonia s/p rx positive tests on 3..20, 4.3.20, 4.4.20, 4.6.20 test negative 10.22.20 2. COPD 3. asthma 4. CVA 5. seizures P 1. continue off antibiotics 2. continue isolation Subjective Constitutional: Denies: fever, chills Respiratory: Reports: productive cough; Denies: shortness of breath Gastrointestinal/Abdominal: Denies: nausea, vomiting, diarrhea Musculoskeletal: Denies: pain Allergies: Coded Allergies: CEFEPIME (Unverified Allergy, Unknown, 11/03/17) LEVOFLOXACIN (Unverified Allergy, Unknown, 11/03/17) PENICILLINS (Unverified Allergy, Unknown, 11/03/17) Objective Vital Signs Last 24 Hour Vital Signs Date Time Temp Pulse Resp B/P (MAP) Pulse Ox O2 Delivery O2 Flow Rate FiO2 10/26/19 09:21 88 110/67 10/26/19 09:00 Nasal Cannula 4.0 10/26/19 08:55 Nasal Cannula 4.0 36 10/26/19 08:55 87 20 96 Nasal Cannula 2.0 10/26/19 08:55 96 Nasal Cannula 4.0 36 10/26/19 08:00 98.9 88 18 110/67 (81) 98 10/26/19 04:00 97.1 99 19 121/61 (81) 98 10/26/19 00:00 96.6 99 19 145/100 (115) 97 10/25/19 21:43 109 131/70 10/25/19 21:00 Nasal Cannula 4.0 10/25/19 20:00 99.6 109 20 131/70 (90) 100 10/25/19 19:47 77 18 99 Nasal Cannula 2.0 28 10/25/19 19:46 75 20 98 Nasal Cannula 4.0 36 10/25/19 19:46 76 18 99 Nasal Cannula 2.0 10/25/19 19:46 98 Nasal Cannula 4.0 36 10/25/19 16:00 97.7 102 20 137/100 (112) 99 Height (Feet): 5 Height (Inches): 5.00 Weight (Pounds): 385 Microbiology Date/Time Source Procedure Growth Status 10/23/19 13:48 Nasopharynx Coronavirus COVID-19 PCR (ABDIAZIZ) - Final Complete Current Medications Medications (Trade) Dose Ordered Sig/Saira Route PRN Reason Start Time Stop Time Status Last Admin Dose Admin Acetaminophen (Tylenol) 650 mg Q6H PRN ORAL MILD/TEMP 10/25/19 20:30 11/09/19 20:29 Acetaminophen/ Hydrocodone Bitart ([place] 10/325) 1 tab Q4H PRN ORAL Pain 4-10 10/25/19 20:30 10/29/19 20:29 Ascorbic Acid (Vitamin C) 500 mg EVERY 12 HOURS ORAL 10/25/19 21:00 11/12/19 14:59 10/26/19 09:21 Aspirin (ASA) 81 mg DAILY ORAL 10/26/19 09:00 11/25/19 08:59 10/26/19 09:19 Atorvastatin Calcium (Lipitor) 10 mg BEDTIME ORAL 10/25/19 21:00 01/09/20 20:59 10/25/19 21:44 Carvedilol (Coreg) 12.5 mg EVERY 12 HOURS ORAL 10/25/19 21:00 11/19/19 20:59 10/26/19 09:21 Cinacalcet (Sensipar) 30 mg DAILY ORAL 10/26/19 09:00 01/09/20 08:59 10/26/19 09:20 Clonazepam (KlonoPIN) 0.5 mg BEDTIME ORAL 10/25/19 21:00 10/28/19 20:59 10/25/19 21:44 Duloxetine HCl (Cymbalta) 60 mg DAILY ORAL 10/26/19 09:00 01/09/20 08:59 10/26/19 09:21 Ferrous Sulfate (Feosol) 325 mg TID ORAL 10/26/19 09:00 01/09/20 08:59 10/26/19 09:21 Folic Acid (Folate) 1 mg DAILY ORAL 10/26/19 09:00 11/10/19 08:59 10/26/19 09:21 Guaifenesin (Mucinex ER) 600 mg EVERY 12 HOURS ORAL 10/25/19 21:00 01/13/20 08:59 10/26/19 09:21 Guaifenesin (Robitussin) 100 mg Q4H PRN ORAL cough 10/25/19 20:30 01/08/20 20:29 Heparin Sodium (Porcine) (Heparin 5000 units/ml) 5,000 units EVERY 12 HOURS SUBQ 10/25/19 21:00 11/25/19 08:59 10/26/19 09:20 Ipratropium [place] (Atrovent Inh) 1 puffs BID INH 10/26/19 09:00 11/24/19 08:59 Lacosamide (Vimpat) 100 mg Q12HR ORAL 10/25/19 21:00 01/09/20 08:59 10/26/19 09:20 Lidocaine (Lidoderm 5% PATCH) 3 patch DAILY TDERMAL 10/26/19 09:00 01/09/20 08:59 10/26/19 09:23 Magnesium Hydroxide (Mom) 30 ml DAILY PRN ORAL Constipation 10/26/19 09:00 11/09/19 23:29 Pantoprazole (Protonix) 40 mg EVERY 12 HOURS ORAL 10/25/19 21:00 11/10/19 08:59 10/26/19 09:20 Pregabalin (Lyrica) 150 mg Q8HR ORAL 10/25/19 22:00 11/10/19 05:59 10/26/19 05:37 Promethazine HCl/ Codeine (Phenergan with Codeine) 5 ml Q4H PRN ORAL For Cough 10/25/19 20:30 11/09/19 20:29 Huma Serna MD Oct 26, 2019 12:08
--- NOTE | 2019-10-26 14:16 | NUR ---
RADIOLOGY DEPT., CHEST X-RAY DONE.-P.DYE
[2019-10-26 16:00] VITALS: BP 153/96
--- NOTE | 2019-10-26 16:52 | NUR ---
CASE MANAGEMENT:REVIEW SI;COVID-19 INFECTION (10/23/2019 SAMPLE ~ NOT DETECTED) 98.9 109 20 153/96 94% 4L NC CO2 35 AST 45 CRP 5.6 IS;PHENERGAN W/CODEINE PO Q4 HRS PRN VIMPAT PO Q12 HRS MUCINEX PO Q12 NRS KLONIPIN PO HS LASIX IV ONCE ATROVENT INH BID MED SURG STATUS DCP;FROM [facility];REPEAT COVID-19 (SNF REQUIRING 2 NEGATIVE RESULTS FOR RE-ADMISSION)
--- NOTE | 2019-10-26 19:40 | NUR ---
HAND-OFF: Report given to Julia APARICIO.
[2019-10-26 20:00] VITALS: BP 118/76
[2019-10-26] MEDS: clonazePAM 0.5mg tab ORAL SCH (21:28)
[2019-10-27] VITALS: BP 115/58
[2019-10-27 04:00] VITALS: BP 129/62
[2019-10-27] MEDS: Lyrica 75mg cap ORAL SCH ×3 (05:48→22:38)
--- NOTE | 2019-10-27 07:54 | NUR ---
Report given to Liana Mast
--- NOTE | 2019-10-27 07:55 | NUR ---
NURSE NOTES: Received patient in bed, awake, not in acute respiratory distress. breathing is even and unlabored. Denies pain @ this time. Served breakfast. Bed is in lowest position. Call light within reach. reminded patient to use call light. IV is in tact. Will continue plan of care.
[2019-10-27 08:00] VITALS: BP 128/76
[2019-10-27] MEDS: Ipratropium Bromide Inhaler INH SCH ×2 (09:25→18:31)
[2019-10-27] MEDS: Sensipar 30mg Tab ORAL SCH (09:43)
[2019-10-27] MEDS: guaiFENesin ER 600mg tab ORAL SCH ×2 (09:43→22:39)
[2019-10-27] MEDS: Lacosamide 50mg tablet ORAL SCH ×2 (09:43→22:37)
[2019-10-27 09:44] LABS: HEMATOCRIT 37.6 % (37.0-47.0); HEMOGLOBIN 11.8 G/DL (12.0-16.0); MEAN CORPUSCULAR VOLUME 89 FL (80-99); PLATELET COUNT 381 K/UL (150-450); RED BLOOD COUNT 4.21 M/UL (4.20-5.40); RED CELL DISTRIBUTION WIDTH 16.4 % (11.6-14.8); WHITE BLOOD COUNT 6.9 K/UL (4.8-10.8)
[2019-10-27] MEDS: Carvedilol 12.5mg tab ORAL SCH ×2 (09:44→22:36)
[2019-10-27] MEDS: Aspirin Baby 81mg ORAL SCH (09:44)
[2019-10-27] MEDS: Ascorbic Acid 500mg tab ORAL SCH ×2 (09:44→22:37)
[2019-10-27] MEDS: Heparin 5000 units/ml inj SUBQ SCH ×2 (09:47→22:42)
[2019-10-27 10:04] LABS: ALANINE AMINOTRANSFERASE 26 U/L (12-78); ALBUMIN 2.5 G/DL (3.4-5.0); ALBUMIN/GLOBULIN RATIO 0.6 (1.0-2.7); ALKALINE PHOSPHATASE 67 U/L (46-116); ANION GAP 11 mmol/L (5-15); ASPARTATE AMINO TRANSFERASE 23 U/L (15-37); BILIRUBIN,TOTAL 0.6 MG/DL (0.2-1.0); BLOOD UREA NITROGEN 8 mg/dL (7-18); CALCIUM 8.3 MG/DL (8.5-10.1); CARBON DIOXIDE 36 MMOL/L (21-32); CHLORIDE 101 MMOL/L (98-107); CREATININE 0.8 MG/DL (0.55-1.30); POTASSIUM 2.7 MMOL/L (3.5-5.1); SODIUM 147 MMOL/L (136-145)
--- NOTE | 2019-10-27 10:27 | NUR ---
NURSE NOTES:WOUND CARE NOTES:Pt presented with Non-blanching erythema cleft of buttocks ,Non-blanching erythema sacrum. Non-blanching erythema without fluctuance noted to R and L Heels. Tx.Plan: Apply Moisture Barrier Paste to Abdominal folds and Cleft of Buttocks with each incontinence care. Apply Moisture Barrier Paste to Sacrum. Cover with Optifoam drsg. Change every 3 days and prn. Apply Cavilon Skin Barrier to Both heels. Cover each heel with Optifoam drsg. Change every 7 days and prn. Reposition at least every 2hours or as tolerated. Off-load heels with pillows.
--- NOTE | 2019-10-27 10:40 | NUR ---
NURSE NOTES: patient's potassium is 2.7 and Magnesium 1.5 and sodium is 147. Dr. Mcgrath is aware with new order to give KCL 60MEQ po x1 and Mag sulfate 2gm IVPB. Noted and carried out.
--- NOTE | 2019-10-27 10:52 | Pulmonology Progress Note ---
Assessment/Plan Assessment/Plan IMPRESSION: Pulmonary infection, asthma, wheezing, history of VRE, COVID positive, stroke. PLAN respiratory care as is monitor for change and optimize ID follow up reviewed off antibiotics; ID care reviewed isolation per ID DVT prophylaxis dc planning once cleared oxygen needs minimal pulmonary colon stable for dc impression, plan, and exam edited and reviewed in detail care discussed with RN Subjective ROS Limited/Unobtainable: Yes Allergies: Coded Allergies: CEFEPIME (Unverified Allergy, Unknown, 11/03/17) LEVOFLOXACIN (Unverified Allergy, Unknown, 11/03/17) PENICILLINS (Unverified Allergy, Unknown, 11/03/17) Subjective care noted overnight resting in bed no distress noted on oxygen /confused Objective Last 24 Hour Vital Signs Date Time Temp Pulse Resp B/P (MAP) Pulse Ox O2 Delivery O2 Flow Rate FiO2 10/27/19 09:44 86 128/76 10/27/19 09:25 86 20 98 Nasal Cannula 4.0 36 10/27/19 09:25 86 20 98 Nasal Cannula 4.0 36 10/27/19 08:00 98.9 86 17 128/76 (93) 98 10/27/19 07:00 98 Nasal Cannula 4.0 36 10/27/19 04:00 99.0 84 20 129/62 (84) 95 10/27/19 00:00 98.8 101 20 115/58 (77) 96 10/26/19 21:22 101 118/76 10/26/19 21:00 Nasal Cannula 4.0 10/26/19 20:42 94 20 96 Nasal Cannula 3.0 32 10/26/19 20:41 92 20 95 Nasal Cannula 3.0 32 10/26/19 20:39 95 Nasal Cannula 3.0 32 10/26/19 20:00 98.9 101 20 118/76 (90) 10/26/19 16:00 98.0 109 18 153/96 (115) 94 10/26/19 12:00 98.2 101 20 129/81 (97) 100 Intake and Output 10/26/19 10/27/19 19:00 07:00 Intake Total 300 ml Balance 300 ml Intake Oral 300 ml # Voids 4 2 Objective WDWN NAD clear breath sounds bilaterally without rhonchi or wheeze [id number] without MRG NABS nontender no HSM no CCE nonfocal reviewed and edited Laboratory Tests 10/27/19 09:30: White Blood Count 6.9, Red Blood Count 4.21, Hemoglobin 11.8L, Hematocrit 37.6, Mean Corpuscular Volume 89, Mean Corpuscular Hemoglobin 28.1, Mean Corpuscular Hemoglobin Concent 31.4L, Red Cell Distribution Width 16.4H, Platelet Count 381 , Mean Platelet Volume 5.8L, Neutrophils (%) (Auto) , Lymphocytes (%) (Auto) , Monocytes (%) (Auto) , Eosinophils (%) (Auto) , Basophils (%) (Auto) , Neutrophils % (Manual) [Pending], Lymphocytes % (Manual) [Pending], Platelet Estimate [Pending], Platelet Morphology [Pending], Sodium Level 147H, Potassium Level 2.7*L, Chloride Level 101, Carbon Dioxide Level 36H, Anion Gap 11, Blood Urea Nitrogen 8, Creatinine 0.8, Estimat Glomerular Filtration Rate > 60, Glucose Level 94, Calcium Level 8.3L, Magnesium Level 1.5L, Total Bilirubin 0.6 , Aspartate Amino Transf (AST/SGOT) 23, Alanine Aminotransferase (ALT/SGPT) 26, Alkaline Phosphatase 67, Pro-B-Type Natriuretic Peptide 92, Total Protein 6.6, Albumin 2.5L, Globulin 4.1, Albumin/Globulin Ratio 0.6L Current Medications Medications (Trade) Dose Ordered Sig/Saira Route PRN Reason Start Time Stop Time Status Last Admin Dose Admin Acetaminophen (Tylenol) 650 mg Q6H PRN ORAL MILD/TEMP 10/25/19 20:30 11/09/19 20:29 Acetaminophen/ Hydrocodone Bitart ([place] 10/325) 1 tab Q4H PRN ORAL Pain 4-10 10/25/19 20:30 10/29/19 20:29 Ascorbic Acid (Vitamin C) 500 mg EVERY 12 HOURS ORAL 10/25/19 21:00 11/12/19 14:59 10/27/19 09:44 Aspirin (ASA) 81 mg DAILY ORAL 10/26/19 09:00 11/25/19 08:59 10/27/19 09:44 Atorvastatin Calcium (Lipitor) 10 mg BEDTIME ORAL 10/25/19 21:00 01/09/20 20:59 10/26/19 21:00 Carvedilol (Coreg) 12.5 mg EVERY 12 HOURS ORAL 10/25/19 21:00 11/19/19 20:59 10/27/19 09:44 Cinacalcet (Sensipar) 30 mg DAILY ORAL 10/26/19 09:00 01/09/20 08:59 10/27/19 09:43 Clonazepam (KlonoPIN) 0.5 mg BEDTIME ORAL 10/25/19 21:00 10/28/19 20:59 10/26/19 21:28 Duloxetine HCl (Cymbalta) 60 mg DAILY ORAL 10/26/19 09:00 01/09/20 08:59 10/27/19 09:43 Ferrous Sulfate (Feosol) 325 mg TID ORAL 10/26/19 09:00 01/09/20 08:59 10/27/19 09:44 Folic Acid (Folate) 1 mg DAILY ORAL 10/26/19 09:00 11/10/19 08:59 10/27/19 09:43 Guaifenesin (Mucinex ER) 600 mg EVERY 12 HOURS ORAL 10/25/19 21:00 01/13/20 08:59 10/27/19 09:43 Guaifenesin (Robitussin) 100 mg Q4H PRN ORAL cough 10/25/19 20:30 01/08/20 20:29 Heparin Sodium (Porcine) (Heparin 5000 units/ml) 5,000 units EVERY 12 HOURS SUBQ 10/25/19 21:00 11/25/19 08:59 10/27/19 09:47 Ipratropium [place] (Atrovent Inh) 1 puffs BID INH 10/26/19 09:00 11/24/19 08:59 10/27/19 09:25 Lacosamide (Vimpat) 100 mg Q12HR ORAL 10/25/19 21:00 01/09/20 08:59 10/27/19 09:43 Lidocaine (Lidoderm 5% PATCH) 3 patch DAILY TDERMAL 10/26/19 09:00 01/09/20 08:59 10/27/19 09:45 Magnesium Hydroxide (Mom) 30 ml DAILY PRN ORAL Constipation 10/26/19 09:00 11/09/19 23:29 Magnesium Sulfate 100 ml @ 100 mls/hr Q1H IVPB 10/27/19 11:00 10/27/19 12:59 Pantoprazole (Protonix) 40 mg EVERY 12 HOURS ORAL 10/25/19 21:00 11/10/19 08:59 10/27/19 09:44 Potassium Chloride (K-Dur) 60 meq ONCE ORAL 10/27/19 10:45 10/27/19 12:00 Pregabalin (Lyrica) 150 mg Q8HR ORAL 10/25/19 22:00 11/10/19 05:59 10/27/19 05:48 Promethazine HCl/ Codeine (Phenergan with Codeine) 5 ml Q4H PRN ORAL For Cough 10/25/19 20:30 11/09/19 20:29 Darrel Schuster MD Oct 27, 2019 10:52
--- NOTE | 2019-10-27 11:06 | Infectious Diseases Prog Note ---
Assessment/Plan Assessment/Plan antibiotics : none A 1. covid 19 pneumonia s/p rx positive tests on 3.28.20, 4.3.20, 4.4.20, 4.6.20 test negative 4.10.20 2. COPD 3. asthma 4. CVA 5. seizures P 1. continue off antibiotics 2. continue isolation Subjective ROS Limited/Unobtainable: Yes Allergies: Coded Allergies: CEFEPIME (Unverified Allergy, Unknown, 11/03/17) LEVOFLOXACIN (Unverified Allergy, Unknown, 11/03/17) PENICILLINS (Unverified Allergy, Unknown, 11/03/17) Objective Vital Signs Last 24 Hour Vital Signs Date Time Temp Pulse Resp B/P (MAP) Pulse Ox O2 Delivery O2 Flow Rate FiO2 10/27/19 09:44 86 128/76 10/27/19 09:25 86 20 98 Nasal Cannula 4.0 36 10/27/19 09:25 86 20 98 Nasal Cannula 4.0 36 10/27/19 08:00 98.9 86 17 128/76 (93) 98 10/27/19 07:00 98 Nasal Cannula 4.0 36 10/27/19 04:00 99.0 84 20 129/62 (84) 95 10/27/19 00:00 98.8 101 20 115/58 (77) 96 10/26/19 21:22 101 118/76 10/26/19 21:00 Nasal Cannula 4.0 10/26/19 20:42 94 20 96 Nasal Cannula 3.0 32 10/26/19 20:41 92 20 95 Nasal Cannula 3.0 32 10/26/19 20:39 95 Nasal Cannula 3.0 32 10/26/19 20:00 98.9 101 20 118/76 (90) 10/26/19 16:00 98.0 109 18 153/96 (115) 94 10/26/19 12:00 98.2 101 20 129/81 (97) 100 Height (Feet): 5 Height (Inches): 5.00 Weight (Pounds): 385 Laboratory Tests Test 10/27/19 09:30 White Blood Count 6.9 K/UL (4.8-10.8) Red Blood Count 4.21 M/UL (4.20-5.40) Hemoglobin 11.8 G/DL (12.0-16.0) L Hematocrit 37.6 % (37.0-47.0) Mean Corpuscular Volume 89 FL (80-99) Mean Corpuscular Hemoglobin 28.1 PG (27.0-31.0) Mean Corpuscular Hemoglobin Concent 31.4 G/DL (32.0-36.0) L Red Cell Distribution Width 16.4 % (11.6-14.8) H Platelet Count 381 K/UL (150-450) Mean Platelet Volume 5.8 FL (6.5-10.1) L Neutrophils (%) (Auto) % (45.0-75.0) Lymphocytes (%) (Auto) % (20.0-45.0) Monocytes (%) (Auto) % (1.0-10.0) Eosinophils (%) (Auto) % (0.0-3.0) Basophils (%) (Auto) % (0.0-2.0) Differential Total Cells Counted 100 Neutrophils % (Manual) 70 % (45-75) Lymphocytes % (Manual) 23 % (20-45) Monocytes % (Manual) 6 % (1-10) Eosinophils % (Manual) 1 % (0-3) Basophils % (Manual) 0 % (0-2) Band Neutrophils 0 % (0-8) Platelet Estimate Adequate Platelet Morphology Normal Anisocytosis 1+ Sodium Level 147 MMOL/L (136-145) H Potassium Level 2.7 MMOL/L (3.5-5.1) *L Chloride Level 101 MMOL/L (98-107) Carbon Dioxide Level 36 MMOL/L (21-32) H Anion Gap 11 mmol/L (5-15) Blood Urea Nitrogen 8 mg/dL (7-18) Creatinine 0.8 MG/DL (0.55-1.30) Estimat Glomerular Filtration Rate > 60 mL/min (>60) Glucose Level 94 MG/DL (74-106) Calcium Level 8.3 MG/DL (8.5-10.1) L Magnesium Level 1.5 MG/DL (1.8-2.4) L Total Bilirubin 0.6 MG/DL (0.2-1.0) Aspartate Amino Transf (AST/SGOT) 23 U/L (15-37) Alanine Aminotransferase (ALT/SGPT) 26 U/L (12-78) Alkaline Phosphatase 67 U/L (46-116) Pro-B-Type Natriuretic Peptide 92 pg/mL (0-125) Total Protein 6.6 G/DL (6.4-8.2) Albumin 2.5 G/DL (3.4-5.0) L Globulin 4.1 g/dL Albumin/Globulin Ratio 0.6 (1.0-2.7) L Current Medications Medications (Trade) Dose Ordered Sig/Saira Route PRN Reason Start Time Stop Time Status Last Admin Dose Admin Acetaminophen (Tylenol) 650 mg Q6H PRN ORAL MILD/TEMP 10/25/19 20:30 11/09/19 20:29 Acetaminophen/ Hydrocodone Bitart ([place] 10/325) 1 tab Q4H PRN ORAL Pain 4-10 10/25/19 20:30 10/29/19 20:29 Ascorbic Acid (Vitamin C) 500 mg EVERY 12 HOURS ORAL 10/25/19 21:00 11/12/19 14:59 10/27/19 09:44 Aspirin (ASA) 81 mg DAILY ORAL 10/26/19 09:00 11/25/19 08:59 10/27/19 09:44 Atorvastatin Calcium (Lipitor) 10 mg BEDTIME ORAL 10/25/19 21:00 01/09/20 20:59 10/26/19 21:00 Carvedilol (Coreg) 12.5 mg EVERY 12 HOURS ORAL 10/25/19 21:00 11/19/19 20:59 10/27/19 09:44 Cinacalcet (Sensipar) 30 mg DAILY ORAL 10/26/19 09:00 01/09/20 08:59 10/27/19 09:43 Clonazepam (KlonoPIN) 0.5 mg BEDTIME ORAL 10/25/19 21:00 10/28/19 20:59 10/26/19 21:28 Duloxetine HCl (Cymbalta) 60 mg DAILY ORAL 10/26/19 09:00 01/09/20 08:59 10/27/19 09:43 Ferrous Sulfate (Feosol) 325 mg TID ORAL 10/26/19 09:00 01/09/20 08:59 10/27/19 09:44 Folic Acid (Folate) 1 mg DAILY ORAL 10/26/19 09:00 11/10/19 08:59 10/27/19 09:43 Guaifenesin (Mucinex ER) 600 mg EVERY 12 HOURS ORAL 10/25/19 21:00 01/13/20 08:59 10/27/19 09:43 Guaifenesin (Robitussin) 100 mg Q4H PRN ORAL cough 10/25/19 20:30 01/08/20 20:29 Heparin Sodium (Porcine) (Heparin 5000 units/ml) 5,000 units EVERY 12 HOURS SUBQ 10/25/19 21:00 11/25/19 08:59 10/27/19 09:47 Ipratropium [place] (Atrovent Inh) 1 puffs BID INH 10/26/19 09:00 11/24/19 08:59 10/27/19 09:25 Lacosamide (Vimpat) 100 mg Q12HR ORAL 10/25/19 21:00 01/09/20 08:59 10/27/19 09:43 Lidocaine (Lidoderm 5% PATCH) 3 patch DAILY TDERMAL 10/26/19 09:00 01/09/20 08:59 10/27/19 09:45 Magnesium Hydroxide (Mom) 30 ml DAILY PRN ORAL Constipation 10/26/19 09:00 11/09/19 23:29 Magnesium Sulfate 100 ml @ 100 mls/hr Q1H IVPB 10/27/19 11:00 10/27/19 12:59 Pantoprazole (Protonix) 40 mg EVERY 12 HOURS ORAL 10/25/19 21:00 11/10/19 08:59 10/27/19 09:44 Potassium Chloride (K-Dur) 60 meq ONCE ORAL 10/27/19 10:45 10/27/19 12:00 Pregabalin (Lyrica) 150 mg Q8HR ORAL 10/25/19 22:00 11/10/19 05:59 10/27/19 05:48 Promethazine HCl/ Codeine (Phenergan with Codeine) 5 ml Q4H PRN ORAL For Cough 10/25/19 20:30 11/09/19 20:29 Huma Serna MD Oct 27, 2019 11:06
--- NOTE | 2019-10-27 11:14 | Progress Note ---
DATE: 10/26/2019 CARDIOLOGY PROGRESS NOTE SUBJECTIVE: Status remains unchanged, but hypoxia slightly worsened. No respiratory distress. Sinus rhythm. PHYSICAL EXAMINATION: VITAL SIGNS: 145/100 blood pressure max, otherwise 121/61, heart rate 99, respiratory rate 19. LUNGS: Bilateral breath sounds. Rhonchi. CARDIAC: Regular rhythm and rate. Normal S1, S2. ABDOMEN: Soft. EXTREMITIES: Trace edema. IMPRESSION: 1. Hypoxia. 2. COPD. 3. COVID-19 pneumonia, status post treatment with hydroxychloroquine. 4. Acute on chronic diastolic congestive heart failure. 5. Sinus tachycardia. PLAN: Titrate beta-arash. Diuresis based on clinical parameters. Followup chest radiograph. Trend natriuretic peptide assay. Bronchodilators and respiratory hygiene. Carlos Eduardo Andino M.D. DR: TONY JOB#: [id number] CC:
[2019-10-27 12:00] VITALS: BP 121/66
--- NOTE | 2019-10-27 13:17 | General Progress Note ---
Assessment/Plan Problem List: (1) COPD with asthma ICD Codes: J44.9 - Chronic obstructive pulmonary disease, unspecified SNOMED: 54327043162488414 (2) Seizure ICD Codes: R56.9 - Unspecified convulsions SNOMED: 55393290 (3) CVA (cerebral vascular accident) ICD Codes: I63.9 - Cerebral infarction, unspecified SNOMED: 229189466 (4) Functional quadriplegia ICD Codes: R53.2 - Functional quadriplegia SNOMED: 043737663090325 (5) COVID-19 ICD Codes: U07.1 - COVID-19 SNOMED: 966491185 Status: stable Assessment/Plan: Continue current treatment. Supplemental oxygen and breathing treatments if needed. check cxr. lasix x 1. Continue pain regimen. Continue cough treatment. skin care turn q2. ID follow up. monitor labs. needs 2 negative covid 19 pcr before discharge Subjective ROS Limited/Unobtainable: No Constitutional: Reports: malaise, weakness HEENT: Reports: no symptoms Cardiovascular: Reports: no symptoms Respiratory: Reports: cough, shortness of breath Gastrointestinal/Abdominal: Reports: no symptoms Genitourinary: Reports: no symptoms Neurologic/Psychiatric: Reports: no symptoms Endocrine: Reports: no symptoms Hematologic/Lymphatic: Reports: no symptoms Allergies: Coded Allergies: CEFEPIME (Unverified Allergy, Unknown, 11/03/17) LEVOFLOXACIN (Unverified Allergy, Unknown, 11/03/17) PENICILLINS (Unverified Allergy, Unknown, 11/03/17) All Systems: reviewed and negative except above Subjective no new complaints. no chest pain. stable sob.increased o2 requirements noted. no fevers. covid neg x 1 Objective Last 24 Hour Vital Signs Date Time Temp Pulse Resp B/P (MAP) Pulse Ox O2 Delivery O2 Flow Rate FiO2 10/27/19 09:44 86 128/76 10/27/19 09:25 86 20 98 Nasal Cannula 4.0 36 10/27/19 09:25 86 20 98 Nasal Cannula 4.0 36 10/27/19 08:00 98.9 86 17 128/76 (93) 98 10/27/19 07:00 98 Nasal Cannula 4.0 36 10/27/19 04:00 99.0 84 20 129/62 (84) 95 10/27/19 00:00 98.8 101 20 115/58 (77) 96 10/26/19 21:22 101 118/76 10/26/19 21:00 Nasal Cannula 4.0 10/26/19 20:42 94 20 96 Nasal Cannula 3.0 32 10/26/19 20:41 92 20 95 Nasal Cannula 3.0 32 10/26/19 20:39 95 Nasal Cannula 3.0 32 10/26/19 20:00 98.9 101 20 118/76 (90) 10/26/19 16:00 98.0 109 18 153/96 (115) 94 Intake and Output 10/26/19 10/27/19 19:00 07:00 Intake Total 300 ml Balance 300 ml Intake Oral 300 ml # Voids 4 2 Laboratory Tests 10/27/19 09:30: White Blood Count 6.9, Red Blood Count 4.21, Hemoglobin 11.8L, Hematocrit 37.6, Mean Corpuscular Volume 89, Mean Corpuscular Hemoglobin 28.1, Mean Corpuscular Hemoglobin Concent 31.4L, Red Cell Distribution Width 16.4H, Platelet Count 381 , Mean Platelet Volume 5.8L, Neutrophils (%) (Auto) , Lymphocytes (%) (Auto) , Monocytes (%) (Auto) , Eosinophils (%) (Auto) , Basophils (%) (Auto) , Differential Total Cells Counted 100, Neutrophils % (Manual) 70, Lymphocytes % ( Manual) 23, Monocytes % (Manual) 6, Eosinophils % (Manual) 1, Basophils % ( Manual) 0, Band Neutrophils 0, Platelet Estimate Adequate, Platelet Morphology Normal, Anisocytosis 1+, Sodium Level 147H, Potassium Level 2.7*L, Chloride Level 101, Carbon Dioxide Level 36H, Anion Gap 11, Blood Urea Nitrogen 8, Creatinine 0.8, Estimat Glomerular Filtration Rate > 60, Glucose Level 94, Calcium Level 8.3L, Magnesium Level 1.5L, Total Bilirubin 0.6, Aspartate Amino Transf (AST/SGOT) 23, Alanine Aminotransferase (ALT/SGPT) 26, Alkaline Phosphatase 67, Pro-B-Type Natriuretic Peptide 92, Total Protein 6.6, Albumin 2.5L, Globulin 4.1, Albumin/Globulin Ratio 0.6L Height (Feet): 5 Height (Inches): 5.00 Weight (Pounds): 385 Objective General Appearance: WD/WN, alert Neck: supple Cardiovascular: normal rate Respiratory/Chest: chest wall non-tender, lungs clear, normal breath sounds, no respiratory distress Abdomen: normal bowel sounds, non tender, soft, no organomegaly Edema: no edema noted Arm (L), no edema noted Arm (R), no edema noted Leg (L), no edema noted Leg (R), no edema noted Pedal (L), no edema noted Pedal (R), no edema noted Generalized Kenroy Mcgrath MD Oct 27, 2019 13:17
[2019-10-27 16:00] VITALS: BP 130/72
--- NOTE | 2019-10-27 18:30 | NUR ---
NURSE NOTES: Patient had additional 40MEQ of K-dur. Performed proper incontinent and wound care done.
--- NOTE | 2019-10-27 19:37 | NUR ---
HAND-OFF: Report given to Endorsed plan of care. Addendum: 10/27/19 at 1939 by LESLEE ALEXIS RN Report given to Nona
[2019-10-27 20:00] VITALS: BP 131/79
--- NOTE | 2019-10-27 21:11 | NUR ---
NURSE NOTES: RECEIVED PATIENT FROM MARKUS BROWN. PATIENT IS AWAKE, AAOX3, FORGETFUL. ON NC 3L, NO ACUTE DISTRESS NOTED. IV ON LEFT UPPER ARM INTACT AND PATENT. BED IS LOCKED AND LOW, BED ALARMS ACTIVE, SIDE RAILS UPX2 AND CALL LIGHT IS WITHIN REACH. WILL CONTINUE TO MONITOR.
[2019-10-27] MEDS: clonazePAM 0.5mg tab ORAL SCH (22:38)
[2019-10-27] MEDS: HYDROcodone/Acetamin 10/325 tab ORAL PRN (22:39)
--- NOTE | 2019-10-27 23:15 | Progress Note ---
DATE: 10/27/2019 CARDIOLOGY PROGRESS NOTE SUBJECTIVE: Some increase in oxygen requirements over the past two days. No worsening shortness of breath. No fevers. Vitals are stable. The patient is off monitor. White count 6.9, hemoglobin 11.8. Potassium 2.7. Sodium 147, bicarb 36, magnesium 1.5. Albumin 2.6. IMPRESSION: 1. Severe hypomagnesemia. 2. COVID-19 recovering now with one swab negative. 3. Hypertensive heart disease. 4. COPD. PLAN: 1. Replace electrolytes . 2. Await second COVID swab before discharge. 3. Continue beta-arash, respiratory hygiene, and vitamin supplementation. Carlos Eduardo Andino M.D. DR: Juan C JOB#: [id number] CC:
[2019-10-28] VITALS: BP 137/51
[2019-10-28] MEDS: Lyrica 75mg cap ORAL SCH ×3 (06:00→21:12)
--- NOTE | 2019-10-28 07:49 | NUR ---
HAND-OFF: Report given to MARKUS Gallagher.
[2019-10-28 08:00] VITALS: BP 164/87
--- NOTE | 2019-10-28 08:00 | NUR ---
NURSE NOTES received report from Cheri Castellano. patient in bed. sleeping. no respiratory distress noted with 3L via NC. no facial grimacing. IV on left upper arm 18g. intact. droplet isolation d/t positive covid19. PPE at all times. bed in the lowest position and locked. call light within reach. will continue to provide plan of care.
[2019-10-28] MEDS: Ipratropium Bromide Inhaler INH SCH ×2 (09:00→17:25)
[2019-10-28] MEDS: Ascorbic Acid 500mg tab ORAL SCH ×2 (09:00→20:51)
[2019-10-28] MEDS: Sensipar 30mg Tab ORAL SCH (09:00)
[2019-10-28] MEDS: Heparin 5000 units/ml inj SUBQ SCH ×2 (09:00→20:53)
[2019-10-28] MEDS: guaiFENesin ER 600mg tab ORAL SCH ×2 (09:00→21:00)
[2019-10-28] MEDS: Lacosamide 50mg tablet ORAL SCH ×2 (09:00→20:51)
[2019-10-28] MEDS: Carvedilol 12.5mg tab ORAL SCH ×2 (09:00→20:50)
[2019-10-28] MEDS: Aspirin Baby 81mg ORAL SCH (09:00)
[2019-10-28 09:24] LABS: BASOPHILS % (AUTO) 1.1 % (0.0-2.0); EOSINOPHILS % (AUTO) 0.4 % (0.0-3.0); HEMATOCRIT 36.8 % (37.0-47.0); HEMOGLOBIN 11.6 G/DL (12.0-16.0); LYMPHOCYTES % (AUTO) 23.4 % (20.0-45.0); MEAN CORPUSCULAR VOLUME 89 FL (80-99); MONOCYTES % (AUTO) 12.3 % (1.0-10.0); NEUTROPHILS % (AUTO) 62.8 % (45.0-75.0); PLATELET COUNT 349 K/UL (150-450); RED BLOOD COUNT 4.11 M/UL (4.20-5.40); RED CELL DISTRIBUTION WIDTH 16.2 % (11.6-14.8); WHITE BLOOD COUNT 6.9 K/UL (4.8-10.8)
[2019-10-28 09:58] LABS: ALANINE AMINOTRANSFERASE 29 U/L (12-78); ALBUMIN 2.5 G/DL (3.4-5.0); ALBUMIN/GLOBULIN RATIO 0.6 (1.0-2.7); ALKALINE PHOSPHATASE 68 U/L (46-116); ANION GAP 9 mmol/L (5-15); ASPARTATE AMINO TRANSFERASE 25 U/L (15-37); BILIRUBIN,TOTAL 0.6 MG/DL (0.2-1.0); BLOOD UREA NITROGEN 8 mg/dL (7-18); CALCIUM 8.8 MG/DL (8.5-10.1); CARBON DIOXIDE 36 MMOL/L (21-32); CHLORIDE 101 MMOL/L (98-107); CREATININE 0.8 MG/DL (0.55-1.30); POTASSIUM 3.2 MMOL/L (3.5-5.1); SODIUM 146 MMOL/L (136-145)
--- NOTE | 2019-10-28 11:07 | Infectious Diseases Prog Note ---
Assessment/Plan Assessment/Plan antibiotics : none A 1. covid 19 pneumonia s/p rx positive tests on 3.28.20, 4.3.20, 4.4.20, 4.6.20, 4.13.20 test negative ..20 2. COPD 3. asthma 4. CVA 5. seizures P 1. continue off antibiotics 2. continue isolation Subjective Constitutional: Denies: fever, chills Respiratory: Reports: shortness of breath, dry cough Gastrointestinal/Abdominal: Reports: nausea; Denies: vomiting, diarrhea Musculoskeletal: Reports: pain Allergies: Coded Allergies: CEFEPIME (Unverified Allergy, Unknown, 11/03/17) LEVOFLOXACIN (Unverified Allergy, Unknown, 11/03/17) PENICILLINS (Unverified Allergy, Unknown, 11/03/17) Objective Vital Signs Last 24 Hour Vital Signs Date Time Temp Pulse Resp B/P (MAP) Pulse Ox O2 Delivery O2 Flow Rate FiO2 10/28/19 09:00 93 164/87 10/28/19 09:00 Nasal Cannula 4.0 10/28/19 08:00 97.9 93 20 164/87 (112) 94 10/28/19 00:00 98.6 83 20 137/51 (79) 96 10/27/19 22:36 95 131/79 10/27/19 21:00 Nasal Cannula 4.0 10/27/19 20:00 99.0 95 20 131/79 (96) 97 10/27/19 20:00 96 Nasal Cannula 3.0 32 10/27/19 20:00 Nasal Cannula 10/27/19 20:00 Nasal Cannula 10/27/19 16:00 98.7 86 18 130/72 (91) 98 10/27/19 12:00 98.4 92 18 121/66 (84) 98 Height (Feet): 5 Height (Inches): 5.00 Weight (Pounds): 370 Microbiology Date/Time Source Procedure Growth Status 10/26/19 06:30 Nasopharynx Coronavirus COVID-19 PCR (ABDIAZIZ) - Final Complete Laboratory Tests Test 10/28/19 09:10 White Blood Count 6.9 K/UL (4.8-10.8) Red Blood Count 4.11 M/UL (4.20-5.40) L Hemoglobin 11.6 G/DL (12.0-16.0) L Hematocrit 36.8 % (37.0-47.0) L Mean Corpuscular Volume 89 FL (80-99) Mean Corpuscular Hemoglobin 28.2 PG (27.0-31.0) Mean Corpuscular Hemoglobin Concent 31.6 G/DL (32.0-36.0) L Red Cell Distribution Width 16.2 % (11.6-14.8) H Platelet Count 349 K/UL (150-450) Mean Platelet Volume 6.3 FL (6.5-10.1) L Neutrophils (%) (Auto) 62.8 % (45.0-75.0) Lymphocytes (%) (Auto) 23.4 % (20.0-45.0) Monocytes (%) (Auto) 12.3 % (1.0-10.0) H Eosinophils (%) (Auto) 0.4 % (0.0-3.0) Basophils (%) (Auto) 1.1 % (0.0-2.0) Sodium Level 146 MMOL/L (136-145) H Potassium Level 3.2 MMOL/L (3.5-5.1) L Chloride Level 101 MMOL/L (98-107) Carbon Dioxide Level 36 MMOL/L (21-32) H Anion Gap 9 mmol/L (5-15) Blood Urea Nitrogen 8 mg/dL (7-18) Creatinine 0.8 MG/DL (0.55-1.30) Estimat Glomerular Filtration Rate > 60 mL/min (>60) Glucose Level 101 MG/DL (74-106) Calcium Level 8.8 MG/DL (8.5-10.1) Magnesium Level 2.2 MG/DL (1.8-2.4) Total Bilirubin 0.6 MG/DL (0.2-1.0) Aspartate Amino Transf (AST/SGOT) 25 U/L (15-37) Alanine Aminotransferase (ALT/SGPT) 29 U/L (12-78) Alkaline Phosphatase 68 U/L (46-116) Pro-B-Type Natriuretic Peptide 112 pg/mL (0-125) Total Protein 6.7 G/DL (6.4-8.2) Albumin 2.5 G/DL (3.4-5.0) L Globulin 4.2 g/dL Albumin/Globulin Ratio 0.6 (1.0-2.7) L Current Medications Medications (Trade) Dose Ordered Sig/Saira Route PRN Reason Start Time Stop Time Status Last Admin Dose Admin Acetaminophen (Tylenol) 650 mg Q6H PRN ORAL MILD/TEMP 10/25/19 20:30 11/09/19 20:29 Acetaminophen/ Hydrocodone Bitart ([place] 10/325) 1 tab Q4H PRN ORAL Pain 4-10 10/25/19 20:30 10/29/19 20:29 10/27/19 22:39 Ascorbic Acid (Vitamin C) 500 mg EVERY 12 HOURS ORAL 10/25/19 21:00 11/12/19 14:59 10/27/19 22:37 Aspirin (ASA) 81 mg DAILY ORAL 10/26/19 09:00 11/25/19 08:59 10/27/19 09:44 Atorvastatin Calcium (Lipitor) 10 mg BEDTIME ORAL 10/25/19 21:00 01/09/20 20:59 10/27/19 22:39 Carvedilol (Coreg) 12.5 mg EVERY 12 HOURS ORAL 10/25/19 21:00 11/19/19 20:59 10/27/19 22:36 Cinacalcet (Sensipar) 30 mg DAILY ORAL 10/26/19 09:00 01/09/20 08:59 10/27/19 09:43 Clonazepam (KlonoPIN) 0.5 mg BEDTIME ORAL 10/25/19 21:00 10/28/19 20:59 10/27/19 22:38 Duloxetine HCl (Cymbalta) 60 mg DAILY ORAL 10/26/19 09:00 01/09/20 08:59 10/27/19 09:43 Ferrous Sulfate (Feosol) 325 mg TID ORAL 10/26/19 09:00 01/09/20 08:59 10/27/19 18:30 Folic Acid (Folate) 1 mg DAILY ORAL 10/26/19 09:00 11/10/19 08:59 10/27/19 09:43 Guaifenesin (Mucinex ER) 600 mg EVERY 12 HOURS ORAL 10/25/19 21:00 01/13/20 08:59 10/27/19 22:39 Guaifenesin (Robitussin) 100 mg Q4H PRN ORAL cough 10/25/19 20:30 01/08/20 20:29 Heparin Sodium (Porcine) (Heparin 5000 units/ml) 5,000 units EVERY 12 HOURS SUBQ 10/25/19 21:00 11/25/19 08:59 10/27/19 22:42 Ipratropium [place] (Atrovent Inh) 1 puffs BID INH 10/26/19 09:00 11/24/19 08:59 10/27/19 18:31 Lacosamide (Vimpat) 100 mg Q12HR ORAL 10/25/19 21:00 01/09/20 08:59 10/27/19 22:37 Lidocaine (Lidoderm 5% PATCH) 3 patch DAILY TDERMAL 10/26/19 09:00 01/09/20 08:59 10/27/19 09:45 Magnesium Hydroxide (Mom) 30 ml DAILY PRN ORAL Constipation 10/26/19 09:00 11/09/19 23:29 Pantoprazole (Protonix) 40 mg EVERY 12 HOURS ORAL 10/25/19 21:00 11/10/19 08:59 10/27/19 22:37 Pregabalin (Lyrica) 150 mg Q8HR ORAL 10/25/19 22:00 11/10/19 05:59 10/27/19 22:38 Promethazine HCl/ Codeine (Phenergan with Codeine) 5 ml Q4H PRN ORAL For Cough 10/25/19 20:30 11/09/19 20:29 Huma Serna MD Oct 28, 2019 11:07
--- NOTE | 2019-10-28 11:13 | NUR ---
NURSE NOTES: potassium 3.[address] guevara and received order Kdur 40meq PO once. order noted. and carried out.
[2019-10-28 12:00] VITALS: BP 123/91
--- NOTE | 2019-10-28 13:33 | General Progress Note ---
Assessment/Plan Problem List: (1) COPD with asthma ICD Codes: J44.9 - Chronic obstructive pulmonary disease, unspecified SNOMED: 02238588266001163 (2) Seizure ICD Codes: R56.9 - Unspecified convulsions SNOMED: 31885254 (3) CVA (cerebral vascular accident) ICD Codes: I63.9 - Cerebral infarction, unspecified SNOMED: 621199928 (4) Functional quadriplegia ICD Codes: R53.2 - Functional quadriplegia SNOMED: 685550320798106 (5) COVID-19 ICD Codes: U07.1 - COVID-19 SNOMED: 278882020 Status: stable Assessment/Plan: Continue current treatment. Supplemental oxygen and breathing treatments if needed. check cxr. lasix x 1. Continue pain regimen. Continue cough treatment. skin care turn q2. ID follow up. monitor labs. needs 2 negative covid 19 pcr before discharge Subjective ROS Limited/Unobtainable: No Constitutional: Reports: malaise, weakness HEENT: Reports: no symptoms Cardiovascular: Reports: no symptoms Respiratory: Reports: cough, shortness of breath Gastrointestinal/Abdominal: Reports: no symptoms Genitourinary: Reports: no symptoms Neurologic/Psychiatric: Reports: no symptoms Endocrine: Reports: no symptoms Hematologic/Lymphatic: Reports: no symptoms Allergies: Coded Allergies: CEFEPIME (Unverified Allergy, Unknown, 11/03/17) LEVOFLOXACIN (Unverified Allergy, Unknown, 11/03/17) PENICILLINS (Unverified Allergy, Unknown, 11/03/17) All Systems: reviewed and negative except above Subjective no new complaints. no chest pain. stable sob.increased o2 requirements noted. no fevers. most recent covid was positive again Objective Last 24 Hour Vital Signs Date Time Temp Pulse Resp B/P (MAP) Pulse Ox O2 Delivery O2 Flow Rate FiO2 10/28/19 12:00 98.6 95 20 123/91 (102) 96 10/28/19 09:00 Nasal Cannula 10/28/19 09:00 96 Nasal Cannula 3.0 32 10/28/19 09:00 93 164/87 10/28/19 09:00 Nasal Cannula 10/28/19 09:00 Nasal Cannula 4.0 10/28/19 08:00 97.9 93 20 164/87 (112) 94 10/28/19 00:00 98.6 83 20 137/51 (79) 96 10/27/19 22:36 95 131/79 10/27/19 21:00 Nasal Cannula 4.0 10/27/19 20:00 99.0 95 20 131/79 (96) 97 10/27/19 20:00 96 Nasal Cannula 3.0 32 10/27/19 20:00 Nasal Cannula 10/27/19 20:00 Nasal Cannula 10/27/19 16:00 98.7 86 18 130/72 (91) 98 Intake and Output 10/27/19 10/28/19 19:00 07:00 Intake Total 300 ml Balance 300 ml Intake Oral 300 ml # Voids 1 1 # Bowel Movements 2 Laboratory Tests 10/28/19 09:10: White Blood Count 6.9, Red Blood Count 4.11L, Hemoglobin 11.6L, Hematocrit 36.8L , Mean Corpuscular Volume 89, Mean Corpuscular Hemoglobin 28.2, Mean Corpuscular Hemoglobin Concent 31.6L, Red Cell Distribution Width 16.2H, Platelet Count 349, Mean Platelet Volume 6.3L, Neutrophils (%) (Auto) 62.8, Lymphocytes (%) (Auto) 23.4, Monocytes (%) (Auto) 12.3H, Eosinophils (%) (Auto) 0.4, Basophils (%) (Auto) 1.1, Sodium Level 146H, Potassium Level 3.2L, Chloride Level 101, Carbon Dioxide Level 36H, Anion Gap 9, Blood Urea Nitrogen 8 , Creatinine 0.8, Estimat Glomerular Filtration Rate > 60, Glucose Level 101, Calcium Level 8.8, Magnesium Level 2.2, Total Bilirubin 0.6, Aspartate Amino Transf (AST/SGOT) 25, Alanine Aminotransferase (ALT/SGPT) 29, Alkaline Phosphatase 68, Pro-B-Type Natriuretic Peptide 112, Total Protein 6.7, Albumin 2.5L, Globulin 4.2, Albumin/Globulin Ratio 0.6L Height (Feet): 5 Height (Inches): 5.00 Weight (Pounds): 370 Objective General Appearance: WD/WN, alert Neck: supple Cardiovascular: normal rate Respiratory/Chest: chest wall non-tender, lungs clear, normal breath sounds, no respiratory distress Abdomen: normal bowel sounds, non tender, soft, no organomegaly Edema: no edema noted Arm (L), no edema noted Arm (R), no edema noted Leg (L), no edema noted Leg (R), no edema noted Pedal (L), no edema noted Pedal (R), no edema noted Generalized Kenroy Mcgrath MD Oct 28, 2019 13:33
[2019-10-28] MEDS: HYDROcodone/Acetamin 10/325 tab ORAL PRN ×2 (13:55→20:52)
--- NOTE | 2019-10-28 15:15 | NUR ---
CASE MANAGEMENT:REVIEW SI;COVID-19 PNEUMONIA. ASTHMA. SEIZURES. 99.0 95 20 168/87 94% 4L NC FIO2 @ 32% NA 146 K+ 3.2 CO2 36 IS;K-DUR PO ONCE PO QD ATROVENT ING BID COREG PO Q12 HRS MUCINEX PO Q12 HRS GUAIFENESIN PO Q4 HRS PRN PHENERGAN W/CODEINE PO Q4 HRS PRN VIMPAT PO Q12 HRS VIT C PO BID MED SURG STATUS DCP;FROM [facility] PLAN;O2 NEEDED ADDITIONAL COVID-19 TEST ~ RESULT PENDING SNF REQUIRES 2 NEGATIVE COVID-19 RESULTS TO RETURN
[2019-10-28 16:00] VITALS: BP 135/61
--- NOTE | 2019-10-28 17:00 | Pulmonology Progress Note ---
Assessment/Plan Assessment/Plan IMPRESSION: Pulmonary infection, asthma, wheezing, history of VRE, COVID positive, stroke. PLAN respiratory care as is monitor for change and optimize ID follow up reviewed off antibiotics; ID care reviewed isolation pending COVID negative DVT prophylaxis dc planning once cleared oxygen needs minimal pulmonary colon stable for dc impression, plan, and exam edited and reviewed in detail care discussed with RN Subjective Allergies: Coded Allergies: CEFEPIME (Unverified Allergy, Unknown, 11/03/17) LEVOFLOXACIN (Unverified Allergy, Unknown, 11/03/17) PENICILLINS (Unverified Allergy, Unknown, 11/03/17) Subjective care noted overnight resting in bed no distress noted on oxygen /confused tested COVID + again on 10/25 Objective Last 24 Hour Vital Signs Date Time Temp Pulse Resp B/P (MAP) Pulse Ox O2 Delivery O2 Flow Rate FiO2 10/28/19 12:00 98.6 95 20 123/91 (102) 96 10/28/19 09:00 Nasal Cannula 10/28/19 09:00 96 Nasal Cannula 3.0 32 10/28/19 09:00 93 164/87 10/28/19 09:00 Nasal Cannula 10/28/19 09:00 Nasal Cannula 4.0 10/28/19 08:00 97.9 93 20 164/87 (112) 94 10/28/19 00:00 98.6 83 20 137/51 (79) 96 10/27/19 22:36 95 131/79 10/27/19 21:00 Nasal Cannula 4.0 10/27/19 20:00 99.0 95 20 131/79 (96) 97 10/27/19 20:00 96 Nasal Cannula 3.0 32 10/27/19 20:00 Nasal Cannula 10/27/19 20:00 Nasal Cannula Intake and Output 10/27/19 10/28/19 19:00 07:00 Intake Total 300 ml Balance 300 ml Intake Oral 300 ml # Voids 1 1 # Bowel Movements 2 Objective WDWN NAD clear breath sounds bilaterally without rhonchi or wheeze [id number] without MRG NABS nontender no HSM no CCE nonfocal reviewed and edited Microbiology Date/Time Source Procedure Growth Status 10/26/19 06:30 Nasopharynx Coronavirus COVID-19 PCR (ABDIAZIZ) - Final Complete Laboratory Tests 10/28/19 09:10: White Blood Count 6.9, Red Blood Count 4.11L, Hemoglobin 11.6L, Hematocrit 36.8L , Mean Corpuscular Volume 89, Mean Corpuscular Hemoglobin 28.2, Mean Corpuscular Hemoglobin Concent 31.6L, Red Cell Distribution Width 16.2H, Platelet Count 349, Mean Platelet Volume 6.3L, Neutrophils (%) (Auto) 62.8, Lymphocytes (%) (Auto) 23.4, Monocytes (%) (Auto) 12.3H, Eosinophils (%) (Auto) 0.4, Basophils (%) (Auto) 1.1, Sodium Level 146H, Potassium Level 3.2L, Chloride Level 101, Carbon Dioxide Level 36H, Anion Gap 9, Blood Urea Nitrogen 8 , Creatinine 0.8, Estimat Glomerular Filtration Rate > 60, Glucose Level 101, Calcium Level 8.8, Magnesium Level 2.2, Total Bilirubin 0.6, Aspartate Amino Transf (AST/SGOT) 25, Alanine Aminotransferase (ALT/SGPT) 29, Alkaline Phosphatase 68, Pro-B-Type Natriuretic Peptide 112, Total Protein 6.7, Albumin 2.5L, Globulin 4.2, Albumin/Globulin Ratio 0.6L Current Medications Medications (Trade) Dose Ordered Sig/Saira Route PRN Reason Start Time Stop Time Status Last Admin Dose Admin Acetaminophen (Tylenol) 650 mg Q6H PRN ORAL MILD/TEMP 10/25/19 20:30 11/09/19 20:29 Acetaminophen/ Hydrocodone Bitart ([place] 10/325) 1 tab Q4H PRN ORAL Pain 4-10 10/25/19 20:30 10/29/19 20:29 10/28/19 13:55 Ascorbic Acid (Vitamin C) 500 mg EVERY 12 HOURS ORAL 10/25/19 21:00 11/12/19 14:59 10/27/19 22:37 Aspirin (ASA) 81 mg DAILY ORAL 10/26/19 09:00 11/25/19 08:59 10/27/19 09:44 Atorvastatin Calcium (Lipitor) 10 mg BEDTIME ORAL 10/25/19 21:00 01/09/20 20:59 10/27/19 22:39 Carvedilol (Coreg) 12.5 mg EVERY 12 HOURS ORAL 10/25/19 21:00 11/19/19 20:59 10/27/19 22:36 Cinacalcet (Sensipar) 30 mg DAILY ORAL 10/26/19 09:00 01/09/20 08:59 10/27/19 09:43 Clonazepam (KlonoPIN) 0.5 mg BEDTIME ORAL 10/25/19 21:00 10/28/19 20:59 10/27/19 22:38 Duloxetine HCl (Cymbalta) 60 mg DAILY ORAL 10/26/19 09:00 01/09/20 08:59 10/27/19 09:43 Ferrous Sulfate (Feosol) 325 mg TID ORAL 10/26/19 09:00 01/09/20 08:59 10/28/19 12:09 Folic Acid (Folate) 1 mg DAILY ORAL 10/26/19 09:00 11/10/19 08:59 10/27/19 09:43 Guaifenesin (Mucinex ER) 600 mg EVERY 12 HOURS ORAL 10/25/19 21:00 01/13/20 08:59 10/27/19 22:39 Guaifenesin (Robitussin) 100 mg Q4H PRN ORAL cough 10/25/19 20:30 01/08/20 20:29 Heparin Sodium (Porcine) (Heparin 5000 units/ml) 5,000 units EVERY 12 HOURS SUBQ 10/25/19 21:00 11/25/19 08:59 10/27/19 22:42 Ipratropium [place] (Atrovent Inh) 1 puffs BID INH 10/26/19 09:00 11/24/19 08:59 10/28/19 09:00 Lacosamide (Vimpat) 100 mg Q12HR ORAL 10/25/19 21:00 01/09/20 08:59 10/27/19 22:37 Lidocaine (Lidoderm 5% PATCH) 3 patch DAILY TDERMAL 10/26/19 09:00 01/09/20 08:59 10/27/19 09:45 Magnesium Hydroxide (Mom) 30 ml DAILY PRN ORAL Constipation 10/26/19 09:00 11/09/19 23:29 Pantoprazole (Protonix) 40 mg EVERY 12 HOURS ORAL 10/25/19 21:00 11/10/19 08:59 10/27/19 22:37 Pregabalin (Lyrica) 150 mg Q8HR ORAL 10/25/19 22:00 11/10/19 05:59 10/28/19 13:42 Promethazine HCl/ Codeine (Phenergan with Codeine) 5 ml Q4H PRN ORAL For Cough 10/25/19 20:30 11/09/19 20:29 Darrel Schuster MD Oct 28, 2019 17:00
--- NOTE | 2019-10-28 17:20 | NUR ---
HAND-OFF: Report given to MARKUS James.
--- NOTE | 2019-10-28 19:30 | NUR ---
NURSE NOTES: Patient awake in bed, alert to name, on nasal cannula at 3LPM. Instructed to use call light for assistance. Bed in lowest and lock engaged. Will continue plan of care.
[2019-10-28 20:00] VITALS: BP 128/74
[2019-10-29] VITALS (7 sets, daily range): BP systolic 114–144; BP diastolic 55–80
[2019-10-29] MEDS: D5W w/KCl 20mEq 1,000 ML IV SCH ×2 (00:07→12:24)
--- NOTE | 2019-10-29 00:15 | Progress Note ---
DATE: 10/28/2019 CARDIOLOGY PROGRESS NOTE SUBJECTIVE: The patient is increasingly short of breath and congested. Hypoxia is worsened slightly. The patient remains COVID positive. PHYSICAL EXAMINATION: VITAL SIGNS: Blood pressure 123/91 to 164/87, heart rate 95, respiratory rate 20, and afebrile. LUNGS: Bilateral breath sounds. Rhonchi. HEART: Regular rhythm and rate. Normal S1, S2. ABDOMEN: Soft. EXTREMITIES: Trace edema. LABORATORY DATA: White count 6.9, hemoglobin 11.6. Sodium 146, potassium 3.2, bicarb 36, BUN 8, creatinine 0.8. Magnesium 2.2. Albumin 2.5. IMPRESSION: 1. Dehydration. 2. 3. Hypokalemia. 4. Contraction alkalosis. 5. Severe protein-calorie malnutrition. 6. COVID-19 pneumonia. 7. Sepsis. 8. COPD. 9. Hypertensive heart disease. 10. Hypomagnesemia. PLAN: 1. Isolation. 2. Potassium replacement. 3. Free water replacement. 4. Antipyretics. 5. DVT prophylaxis. 6. Followup laboratory studies. Carlos Eduardo Andino M.D. DR: Juan C JOB#: [id number] CC:
[2019-10-29] MEDS: HYDROcodone/Acetamin 10/325 tab ORAL PRN ×3 (05:57→17:23)
[2019-10-29] MEDS: Lyrica 75mg cap ORAL SCH ×3 (06:00→22:00)
--- NOTE | 2019-10-29 07:32 | General Progress Note ---
Assessment/Plan Problem List: (1) COPD with asthma ICD Codes: J44.9 - Chronic obstructive pulmonary disease, unspecified SNOMED: 46550523844670089 (2) Seizure ICD Codes: R56.9 - Unspecified convulsions SNOMED: 15764057 (3) CVA (cerebral vascular accident) ICD Codes: I63.9 - Cerebral infarction, unspecified SNOMED: 076130560 (4) Functional quadriplegia ICD Codes: R53.2 - Functional quadriplegia SNOMED: 815973899868153 (5) COVID-19 ICD Codes: U07.1 - COVID-19 SNOMED: 600270828 Status: stable Assessment/Plan: Continue current treatment. Supplemental oxygen and breathing treatments if needed. check cxr. lasix x 1. Continue pain regimen. Continue cough treatment. skin care turn q2. ID follow up. monitor labs.dc planning to [facility]. Subjective ROS Limited/Unobtainable: No Constitutional: Reports: malaise, weakness HEENT: Reports: no symptoms Cardiovascular: Reports: no symptoms Respiratory: Reports: cough Gastrointestinal/Abdominal: Reports: no symptoms Genitourinary: Reports: no symptoms Neurologic/Psychiatric: Reports: no symptoms Endocrine: Reports: no symptoms Hematologic/Lymphatic: Reports: no symptoms Allergies: Coded Allergies: CEFEPIME (Unverified Allergy, Unknown, 11/03/17) LEVOFLOXACIN (Unverified Allergy, Unknown, 11/03/17) PENICILLINS (Unverified Allergy, Unknown, 11/03/17) All Systems: reviewed and negative except above Subjective no new complaints. no chest pain. stable sob.increased o2 requirements noted. no fevers. Objective Last 24 Hour Vital Signs Date Time Temp Pulse Resp B/P (MAP) Pulse Ox O2 Delivery O2 Flow Rate FiO2 10/29/19 04:00 98.4 88 19 117/55 (75) 97 10/29/19 00:00 98.2 92 20 114/72 (86) 95 10/28/19 21:00 Nasal Cannula 4.0 10/28/19 20:50 97 128/74 10/28/19 20:31 Nasal Cannula 4.0 36 10/28/19 20:30 96 Nasal Cannula 3.0 32 10/28/19 20:30 Nasal Cannula 4.0 36 10/28/19 20:00 98.1 97 18 128/74 (92) 97 10/28/19 16:00 98.3 98 20 135/61 (85) 95 10/28/19 12:00 98.6 95 20 123/91 (102) 96 10/28/19 09:00 Nasal Cannula 10/28/19 09:00 96 Nasal Cannula 3.0 32 10/28/19 09:00 93 164/87 10/28/19 09:00 Nasal Cannula 10/28/19 09:00 Nasal Cannula 4.0 10/28/19 08:00 97.9 93 20 164/87 (112) 94 Intake and Output 10/28/19 10/29/19 19:00 07:00 Intake Total 480 ml 850 ml Balance 480 ml 850 ml Intake Oral 480 ml 400 ml IV Total 450 ml # Voids 2 2 Laboratory Tests 10/28/19 09:10: White Blood Count 6.9, Red Blood Count 4.11L, Hemoglobin 11.6L, Hematocrit 36.8L , Mean Corpuscular Volume 89, Mean Corpuscular Hemoglobin 28.2, Mean Corpuscular Hemoglobin Concent 31.6L, Red Cell Distribution Width 16.2H, Platelet Count 349, Mean Platelet Volume 6.3L, Neutrophils (%) (Auto) 62.8, Lymphocytes (%) (Auto) 23.4, Monocytes (%) (Auto) 12.3H, Eosinophils (%) (Auto) 0.4, Basophils (%) (Auto) 1.1, Sodium Level 146H, Potassium Level 3.2L, Chloride Level 101, Carbon Dioxide Level 36H, Anion Gap 9, Blood Urea Nitrogen 8 , Creatinine 0.8, Estimat Glomerular Filtration Rate > 60, Glucose Level 101, Calcium Level 8.8, Magnesium Level 2.2, Total Bilirubin 0.6, Aspartate Amino Transf (AST/SGOT) 25, Alanine Aminotransferase (ALT/SGPT) 29, Alkaline Phosphatase 68, Pro-B-Type Natriuretic Peptide 112, Total Protein 6.7, Albumin 2.5L, Globulin 4.2, Albumin/Globulin Ratio 0.6L Height (Feet): 5 Height (Inches): 5.00 Weight (Pounds): 370 Objective General Appearance: WD/WN, alert Neck: supple Cardiovascular: normal rate Respiratory/Chest: chest wall non-tender, lungs clear, normal breath sounds, no respiratory distress Abdomen: normal bowel sounds, non tender, soft, no organomegaly Edema: no edema noted Arm (L), no edema noted Arm (R), no edema noted Leg (L), no edema noted Leg (R), no edema noted Pedal (L), no edema noted Pedal (R), no edema noted Generalized Kenroy Mcgrath MD Oct 29, 2019 07:32
--- NOTE | 2019-10-29 07:41 | NUR ---
HAND-OFF: Report given to MARKUS Reece.
--- NOTE | 2019-10-29 08:26 | NUR ---
NURSE NOTES: Patient alert x2, confused, forgetful; on Nasal Cannula 3 Liters, no sing of shortness of breath; no sing of distress; no sing of chest pain; wound dressing dry and intact; side rails up x2, breaks engaged, bed at lowest position, bed alarm on; call light within reach; will keep monitoring.
--- NOTE | 2019-10-29 08:45 | Diagnostic Imaging Report ---
Indication: Shortness of breath Technique: One view of the chest Comparison: 10/26/2019 Findings: Interim improvement of previously demonstrated bilateral interstitial disease. Lungs pleural spaces currently appear clear. The heart size is borderline enlarged. Impression: Over 3 days, improved bilateral infiltrates versus edema
[2019-10-29] MEDS: Ipratropium Bromide Inhaler INH SCH ×2 (09:00→18:00)
--- NOTE | 2019-10-29 09:30 | Pulmonology Progress Note ---
Assessment/Plan Assessment/Plan IMPRESSION: Pulmonary infection, asthma, wheezing, history of VRE, COVID positive, stroke. PLAN respiratory care as is monitor for change and optimize ID follow up reviewed off antibiotics; ID care reviewed isolation pending COVID negative DVT prophylaxis dc planning oxygen needs minimal pulmonary colon stable for dc impression, plan, and exam edited and reviewed in detail care discussed with RN Subjective Allergies: Coded Allergies: CEFEPIME (Unverified Allergy, Unknown, 11/03/17) LEVOFLOXACIN (Unverified Allergy, Unknown, 11/03/17) PENICILLINS (Unverified Allergy, Unknown, 11/03/17) Subjective care noted overnight resting in bed no distress noted on oxygen /confused tested COVID + again on 10/25 CXR improved Objective Last 24 Hour Vital Signs Date Time Temp Pulse Resp B/P (MAP) Pulse Ox O2 Delivery O2 Flow Rate FiO2 10/29/19 08:33 98 Nasal Cannula 3.0 32 10/29/19 04:00 98.4 88 19 117/55 (75) 97 10/29/19 00:00 98.2 92 20 114/72 (86) 95 10/28/19 21:00 Nasal Cannula 4.0 10/28/19 20:50 97 128/74 10/28/19 20:31 Nasal Cannula 4.0 36 10/28/19 20:30 96 Nasal Cannula 3.0 32 10/28/19 20:30 Nasal Cannula 4.0 36 10/28/19 20:00 98.1 97 18 128/74 (92) 97 10/28/19 16:00 98.3 98 20 135/61 (85) 95 10/28/19 12:00 98.6 95 20 123/91 (102) 96 Intake and Output 10/28/19 10/29/19 19:00 07:00 Intake Total 480 ml 850 ml Balance 480 ml 850 ml Intake Oral 480 ml 400 ml IV Total 450 ml # Voids 2 2 Objective WDWN NAD clear breath sounds bilaterally without rhonchi or wheeze [id number] without MRG NABS nontender no HSM no CCE nonfocal reviewed and edited Current Medications Medications (Trade) Dose Ordered Sig/Saira Route PRN Reason Start Time Stop Time Status Last Admin Dose Admin Acetaminophen (Tylenol) 650 mg Q6H PRN ORAL MILD/TEMP 10/25/19 20:30 11/09/19 20:29 Acetaminophen/ Hydrocodone Bitart ([place] 10/325) 1 tab Q4H PRN ORAL Pain 4-10 10/25/19 20:30 10/29/19 20:29 10/29/19 05:57 Ascorbic Acid (Vitamin C) 500 mg EVERY 12 HOURS ORAL 10/25/19 21:00 11/12/19 14:59 10/28/19 20:51 Aspirin (ASA) 81 mg DAILY ORAL 10/26/19 09:00 11/25/19 08:59 10/27/19 09:44 Atorvastatin Calcium (Lipitor) 10 mg BEDTIME ORAL 10/25/19 21:00 01/09/20 20:59 10/28/19 20:50 Carvedilol (Coreg) 12.5 mg EVERY 12 HOURS ORAL 10/25/19 21:00 11/19/19 20:59 10/28/19 20:50 Cinacalcet (Sensipar) 30 mg DAILY ORAL 10/26/19 09:00 01/09/20 08:59 10/27/19 09:43 Dextrose/ Electrolytes 1,000 ml @ 75 mls/hr [id number] IV 10/28/19 23:00 11/27/19 22:59 10/29/19 00:07 Duloxetine HCl (Cymbalta) 60 mg DAILY ORAL 10/26/19 09:00 01/09/20 08:59 10/27/19 09:43 Ferrous Sulfate (Feosol) 325 mg TID ORAL 10/26/19 09:00 01/09/20 08:59 10/28/19 17:25 Folic Acid (Folate) 1 mg DAILY ORAL 10/26/19 09:00 11/10/19 08:59 10/27/19 09:43 Guaifenesin (Mucinex ER) 600 mg EVERY 12 HOURS ORAL 10/25/19 21:00 01/13/20 08:59 10/27/19 22:39 Guaifenesin (Robitussin) 100 mg Q4H PRN ORAL cough 10/25/19 20:30 01/08/20 20:29 Heparin Sodium (Porcine) (Heparin 5000 units/ml) 5,000 units EVERY 12 HOURS SUBQ 10/25/19 21:00 11/25/19 08:59 4/15/20 20:53 Ipratropium [place] (Atrovent Inh) 1 puffs BID INH 10/26/19 09:00 11/24/19 08:59 10/28/19 17:25 Lacosamide (Vimpat) 100 mg Q12HR ORAL 10/25/19 21:00 01/09/20 08:59 10/28/19 20:51 Lidocaine (Lidoderm 5% PATCH) 3 patch DAILY TDERMAL 10/26/19 09:00 01/09/20 08:59 10/27/19 09:45 Magnesium Hydroxide (Mom) 30 ml DAILY PRN ORAL Constipation 10/26/19 09:00 11/09/19 23:29 Pantoprazole (Protonix) 40 mg EVERY 12 HOURS ORAL 10/25/19 21:00 11/10/19 08:59 10/27/19 22:37 Pregabalin (Lyrica) 150 mg Q8HR ORAL 10/25/19 22:00 11/10/19 05:59 10/28/19 13:42 Promethazine HCl/ Codeine (Phenergan with Codeine) 5 ml Q4H PRN ORAL For Cough 10/25/19 20:30 11/09/19 20:29 Darrel Schuster MD Oct 29, 2019 09:30
[2019-10-29] MEDS: Carvedilol 12.5mg tab ORAL SCH ×2 (09:58→21:28)
[2019-10-29] MEDS: Aspirin Baby 81mg ORAL SCH (09:58)
[2019-10-29] MEDS: Ascorbic Acid 500mg tab ORAL SCH ×2 (09:58→20:57)
[2019-10-29] MEDS: Sensipar 30mg Tab ORAL SCH (09:58)
[2019-10-29] MEDS: guaiFENesin ER 600mg tab ORAL SCH ×2 (09:59→20:57)
[2019-10-29] MEDS: Lacosamide 50mg tablet ORAL SCH ×2 (09:59→20:58)
[2019-10-29] MEDS: Heparin 5000 units/ml inj SUBQ SCH ×2 (10:01→20:57)
--- NOTE | 2019-10-29 13:44 | Infectious Diseases Prog Note ---
Assessment/Plan Assessment/Plan A 1. COVID 19 pneumonia - Tests are positive on 10/09, 10/15 , 10/16 , 10/18, 10/25 - Test is negative on 10/22 2. COPD 3. asthma 4. CVA 5. seizures 6. Hypokalemia, corrected P 1. repeat COVID19 tests 2. continue isolation Subjective ROS Limited/Unobtainable: Yes Allergies: Coded Allergies: CEFEPIME (Unverified Allergy, Unknown, 11/03/17) LEVOFLOXACIN (Unverified Allergy, Unknown, 11/03/17) PENICILLINS (Unverified Allergy, Unknown, 11/03/17) Objective Vital Signs Last 24 Hour Vital Signs Date Time Temp Pulse Resp B/P (MAP) Pulse Ox O2 Delivery O2 Flow Rate FiO2 10/29/19 12:00 96.4 88 19 128/80 (96) 96 10/29/19 10:48 98.0 10/29/19 09:58 96 134/60 10/29/19 09:00 Nasal Cannula 4.0 10/29/19 08:33 98 Nasal Cannula 3.0 32 10/29/19 08:00 98.0 96 19 134/60 (84) 97 10/29/19 04:00 98.4 88 19 117/55 (75) 97 10/29/19 00:00 98.2 92 20 114/72 (86) 95 10/28/19 21:00 Nasal Cannula 4.0 10/28/19 20:50 97 128/74 10/28/19 20:31 Nasal Cannula 4.0 36 10/28/19 20:30 96 Nasal Cannula 3.0 32 10/28/19 20:30 Nasal Cannula 4.0 36 10/28/19 20:00 98.1 97 18 128/74 (92) 97 10/28/19 16:00 98.3 98 20 135/61 (85) 95 Height (Feet): 5 Height (Inches): 5.00 Weight (Pounds): 370 General Appearance: no acute distress HEENT: mucous membranes moist Respiratory/Chest: lungs clear Cardiovascular: normal rate Abdomen: soft, non tender Extremities: no edema Current Medications Medications (Trade) Dose Ordered Sig/Saira Route PRN Reason Start Time Stop Time Status Last Admin Dose Admin Acetaminophen (Tylenol) 650 mg Q6H PRN ORAL MILD/TEMP 10/25/19 20:30 11/09/19 20:29 Acetaminophen/ Hydrocodone Bitart ([place] 10/325) 1 tab Q4H PRN ORAL Pain 4-10/25/19 20:30 10/29/19 20:29 10/29/19 10:18 Ascorbic Acid (Vitamin C) 500 mg EVERY 12 HOURS ORAL 10/25/19 21:00 11/12/19 14:59 10/29/19 09:58 Aspirin (ASA) 81 mg DAILY ORAL 10/26/19 09:00 11/25/19 08:59 10/29/19 09:58 Atorvastatin Calcium (Lipitor) 10 mg BEDTIME ORAL 10/25/19 21:00 01/09/20 20:59 10/28/19 20:50 Carvedilol (Coreg) 12.5 mg EVERY 12 HOURS ORAL 10/25/19 21:00 11/19/19 20:59 10/29/19 09:58 Cinacalcet (Sensipar) 30 mg DAILY ORAL 10/26/19 09:00 01/09/20 08:59 10/29/19 09:58 Dextrose/ Electrolytes 1,000 ml @ 75 mls/hr [id number] IV 10/28/19 23:00 11/27/19 22:59 10/29/19 12:24 Duloxetine HCl (Cymbalta) 60 mg DAILY ORAL 10/26/19 09:00 01/09/20 08:59 10/29/19 09:58 Ferrous Sulfate (Feosol) 325 mg TID ORAL 10/26/19 09:00 01/09/20 08:59 10/29/19 12:24 Folic Acid (Folate) 1 mg DAILY ORAL 10/26/19 09:00 11/10/19 08:59 10/29/19 09:58 Guaifenesin (Mucinex ER) 600 mg EVERY 12 HOURS ORAL 10/25/19 21:00 01/13/20 08:59 10/29/19 09:59 Guaifenesin (Robitussin) 100 mg Q4H PRN ORAL cough 10/25/19 20:30 01/08/20 20:29 Heparin Sodium (Porcine) (Heparin 5000 units/ml) 5,000 units EVERY 12 HOURS SUBQ 10/25/19 21:00 11/25/19 08:59 10/29/19 10:01 Ipratropium [place] (Atrovent Inh) 1 puffs BID INH 10/26/19 09:00 11/24/19 08:59 10/28/19 17:25 Lacosamide (Vimpat) 100 mg Q12HR ORAL 10/25/19 21:00 01/09/20 08:59 10/29/19 09:59 Lidocaine (Lidoderm 5% PATCH) 3 patch DAILY TDERMAL 10/26/19 09:00 01/09/20 08:59 10/29/19 10:01 Magnesium Hydroxide (Mom) 30 ml DAILY PRN ORAL Constipation 10/26/19 09:00 11/09/19 23:29 Pantoprazole (Protonix) 40 mg EVERY 12 HOURS ORAL 10/25/19 21:00 11/10/19 08:59 10/29/19 09:58 Pregabalin (Lyrica) 150 mg Q8HR ORAL 10/25/19 22:00 11/10/19 05:59 10/28/19 13:42 Promethazine HCl/ Codeine (Phenergan with Codeine) 5 ml Q4H PRN ORAL For Cough 10/25/19 20:30 11/09/19 20:29 Chris Arroyo MD Oct 29, 2019 13:44
--- NOTE | 2019-10-29 14:03 | NUR ---
DISCHARGE PLANNING CALL MADE TO JULIA CHAMBERLAIN [phone]. 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 IN RE TO READMISSIONS FOR COVID-19+ PATIENTS, PROTOCOL FOR READMISSION AT THIS TIME ARE: 7-14 DAY HOSPITALIZATION AFEBRILE FOR 72 HOURS W/O ANTIPYRETICS 2ND COVID-19 TEST WITH NEGATIVE RESULT
--- NOTE | 2019-10-29 19:29 | NUR ---
HAND-OFF: Report given to MARKUS Cash.
--- NOTE | 2019-10-29 22:10 | NUR ---
NURSE NOTES: Patient in bed, awake, alert, able to make needs known. Respiration is even, nasal cannula 3 L. Abdomen is soft , round. Iv site noted, iv fluid is infusing as ordered. Bed in low and locked position. Provided safe environment. No complaint of pain or discomfort at this time. Isolation precaution noted and observed. Will continue plan of care.
[2019-10-30 00:18] VITALS: BP 145/69
[2019-10-30] MEDS: D5W w/KCl 20mEq 1,000 ML IV SCH ×2 (02:00→15:59)
[2019-10-30 04:00] VITALS: BP 133/64
[2019-10-30] MEDS: Lyrica 75mg cap ORAL SCH ×4 (06:00→22:00)
--- NOTE | 2019-10-30 07:41 | NUR ---
HAND-OFF: Report given to MARKUS Srivastava.
--- NOTE | 2019-10-30 08:04 | NUR ---
NURSE NOTES: pt in the bed alert and awake. respiration is even and unlabored on O2 @3l/min via NC. pt denies any pain and discomfort. no acute distress noted. placed call light within reach.
--- NOTE | 2019-10-30 08:43 | Progress Note ---
DATE: 10/29/2019 CARDIOLOGY PROGRESS NOTE SUBJECTIVE: Little change, oxygen requirement slightly increased but the patient without shortness of breath. She is slightly congested. PHYSICAL EXAMINATION: VITAL SIGNS: Blood pressure 117/55, pulse 88, respiratory rate 19, afebrile. LUNGS: Bilateral breath sounds. No rhonchi or wheezing. CARDIAC: Regular rhythm and rate. Normal S1, S2. ABDOMEN: Soft. EXTREMITIES: No edema. IMPRESSION: 1. COVID-19 pneumonia. 2. Hypokalemia. 3. Hyponatremia. 4. Dehydration. 5. Contraction alkalosis. 6. Hypomagnesemia status post repletion, [id number] protein-calorie malnutrition. 7. Hypertensive heart disease. 8. Chronic obstructive pulmonary disease. 9. Hypoxia. PLAN: 1. Hypotonic IV fluids. 2. Replace potassium and magnesium. 3. Respiratory hygiene. 4. Nasal oxygen with taper as able. 5. DVT prophylaxis. Carlos Eduardo Andino M.D. DR: CLARA JOB#: [id number] CC:
[2019-10-30] MEDS: Ipratropium Bromide Inhaler INH SCH ×3 (08:52→19:33)
[2019-10-30 09:00] VITALS: BP 126/69
[2019-10-30] MEDS: Heparin 5000 units/ml inj SUBQ SCH ×2 (09:00→22:22)
[2019-10-30] MEDS: Ascorbic Acid 500mg tab ORAL SCH ×2 (09:00→21:00)
[2019-10-30] MEDS: Aspirin Baby 81mg ORAL SCH (10:59)
[2019-10-30] MEDS: Lacosamide 50mg tablet ORAL SCH ×2 (11:00→21:00)
[2019-10-30] MEDS: Carvedilol 12.5mg tab ORAL SCH ×2 (11:00→21:00)
[2019-10-30] MEDS: guaiFENesin ER 600mg tab ORAL SCH ×2 (11:01→21:00)
[2019-10-30] MEDS: Sensipar 30mg Tab ORAL SCH (11:01)
--- NOTE | 2019-10-30 11:05 | Infectious Diseases Prog Note ---
Assessment/Plan Assessment/Plan antibiotics : none A 1. covid 19 pneumonia s/p rx positive tests on 3.28.20, 4.3.20, 4.4.20, 4.6.20, 4.13.20 test negative 4.10.20 2. COPD 3. asthma 4. CVA 5. seizures P 1. continue off antibiotics 2. continue isolation Subjective ROS Limited/Unobtainable: Yes Allergies: Coded Allergies: CEFEPIME (Unverified Allergy, Unknown, 11/03/17) LEVOFLOXACIN (Unverified Allergy, Unknown, 11/03/17) PENICILLINS (Unverified Allergy, Unknown, 11/03/17) Objective Vital Signs Last 24 Hour Vital Signs Date Time Temp Pulse Resp B/P (MAP) Pulse Ox O2 Delivery O2 Flow Rate FiO2 10/30/19 08:53 Nasal Cannula 4.0 36 10/30/19 08:53 Nasal Cannula 4.0 36 10/30/19 07:26 97 Nasal Cannula 3.0 32 10/30/19 04:00 98.5 79 20 133/64 (87) 94 10/30/19 00:18 97.8 70 20 145/69 (94) 96 10/29/19 21:28 73 144/65 10/29/19 21:00 Nasal Cannula 3.0 10/29/19 20:00 97.4 73 20 144/65 (91) 98 10/29/19 19:31 Nasal Cannula 4.0 36 10/29/19 19:31 98 Nasal Cannula 3.0 32 10/29/19 19:31 Nasal Cannula 4.0 36 10/29/19 17:53 97.0 10/29/19 16:00 97.0 84 19 138/73 (94) 95 10/29/19 12:00 96.4 88 19 128/80 (96) 96 Height (Feet): 5 Height (Inches): 5.00 Weight (Pounds): 370 Current Medications Medications (Trade) Dose Ordered Sig/Saira Route PRN Reason Start Time Stop Time Status Last Admin Dose Admin Acetaminophen (Tylenol) 650 mg Q6H PRN ORAL MILD/TEMP 10/25/19 20:30 11/09/19 20:29 10/30/19 06:43 Ascorbic Acid (Vitamin C) 500 mg EVERY 12 HOURS ORAL 10/25/19 21:00 11/12/19 14:59 10/29/19 20:57 Aspirin (ASA) 81 mg DAILY ORAL 10/26/19 09:00 11/25/19 08:59 10/29/19 09:58 Atorvastatin Calcium (Lipitor) 10 mg BEDTIME ORAL 10/25/19 21:00 01/09/20 20:59 10/29/19 20:57 Carvedilol (Coreg) 12.5 mg EVERY 12 HOURS ORAL 10/25/19 21:00 11/19/19 20:59 10/29/19 21:28 Cinacalcet (Sensipar) 30 mg DAILY ORAL 10/26/19 09:00 01/09/20 08:59 10/29/19 09:58 Dextrose/ Electrolytes 1,000 ml @ 75 mls/hr [id number] IV 10/28/19 23:00 11/27/19 22:59 10/30/19 02:00 Duloxetine HCl (Cymbalta) 60 mg DAILY ORAL 10/26/19 09:00 01/09/20 08:59 10/29/19 09:58 Ferrous Sulfate (Feosol) 325 mg TID ORAL 10/26/19 09:00 01/09/20 08:59 10/29/19 17:23 Folic Acid (Folate) 1 mg DAILY ORAL 10/26/19 09:00 11/10/19 08:59 10/29/19 09:58 Guaifenesin (Mucinex ER) 600 mg EVERY 12 HOURS ORAL 10/25/19 21:00 01/13/20 08:59 10/29/19 20:57 Guaifenesin (Robitussin) 100 mg Q4H PRN ORAL cough 10/25/19 20:30 01/08/20 20:29 Heparin Sodium (Porcine) (Heparin 5000 units/ml) 5,000 units EVERY 12 HOURS SUBQ 10/25/19 21:00 11/25/19 08:59 10/29/19 20:57 Ipratropium [place] (Atrovent Inh) 1 puffs BID INH 10/26/19 09:00 11/24/19 08:59 10/28/19 17:25 Lacosamide (Vimpat) 100 mg Q12HR ORAL 10/25/19 21:00 01/09/20 08:59 10/29/19 20:58 Lidocaine (Lidoderm 5% PATCH) 3 patch DAILY TDERMAL 10/26/19 09:00 01/09/20 08:59 10/29/19 10:01 Magnesium Hydroxide (Mom) 30 ml DAILY PRN ORAL Constipation 10/26/19 09:00 11/09/19 23:29 Pantoprazole (Protonix) 40 mg EVERY 12 HOURS ORAL 10/25/19 21:00 11/10/19 08:59 10/29/19 20:57 Pregabalin (Lyrica) 150 mg Q8HR ORAL 10/25/19 22:00 11/10/19 05:59 10/30/19 06:00 Promethazine HCl/ Codeine (Phenergan with Codeine) 5 ml Q4H PRN ORAL For Cough 10/25/19 20:30 11/09/19 20:29 Huma Serna MD Oct 30, 2019 11:05
--- NOTE | 2019-10-30 11:58 | Pulmonology Progress Note ---
Assessment/Plan Assessment/Plan IMPRESSION: Pulmonary infection, asthma, wheezing, history of VRE, COVID positive, stroke. PLAN respiratory care as is monitor for change and optimize ID follow up reviewed off antibiotics; ID care reviewed isolation pending COVID negative DVT prophylaxis dc planning oxygen needs minimal pulmonary colon stable for dc impression, plan, and exam edited and reviewed in detail care discussed with RN Subjective Allergies: Coded Allergies: CEFEPIME (Unverified Allergy, Unknown, 11/03/17) LEVOFLOXACIN (Unverified Allergy, Unknown, 11/03/17) PENICILLINS (Unverified Allergy, Unknown, 11/03/17) Subjective care noted overnight resting in bed no distress noted on oxygen /confused tested COVID + again on 10/25 CXR improved Objective Last 24 Hour Vital Signs Date Time Temp Pulse Resp B/P (MAP) Pulse Ox O2 Delivery O2 Flow Rate FiO2 10/30/19 11:00 79 140/69 10/30/19 09:00 98.9 82 20 126/69 (88) 95 10/30/19 09:00 Nasal Cannula 3.0 10/30/19 08:53 Nasal Cannula 4.0 36 10/30/19 08:53 Nasal Cannula 4.0 36 10/30/19 07:26 97 Nasal Cannula 3.0 32 10/30/19 04:00 98.5 79 20 133/64 (87) 94 10/30/19 00:18 97.8 70 20 145/69 (94) 96 10/29/19 21:28 73 144/65 10/29/19 21:00 Nasal Cannula 3.0 10/29/19 20:00 97.4 73 20 144/65 (91) 98 10/29/19 19:31 Nasal Cannula 4.0 36 10/29/19 19:31 98 Nasal Cannula 3.0 32 10/29/19 19:31 Nasal Cannula 4.0 36 10/29/19 17:53 97.0 10/29/19 16:00 97.0 84 19 138/73 (94) 95 10/29/19 12:00 96.4 88 19 128/80 (96) 96 Intake and Output 10/29/19 10/30/19 19:00 07:00 Intake Total 1150 ml 1475 ml Balance 1150 ml 1475 ml Intake Oral 250 ml 650 ml IV Total 900 ml 825 ml # Voids 2 3 Objective WDWN NAD clear breath sounds bilaterally without rhonchi or wheeze [id number] without MRG NABS nontender no HSM no CCE nonfocal reviewed and edited Current Medications Medications (Trade) Dose Ordered Sig/Saira Route PRN Reason Start Time Stop Time Status Last Admin Dose Admin Acetaminophen (Tylenol) 650 mg Q6H PRN ORAL MILD/TEMP 10/25/19 20:30 11/09/19 20:29 10/30/19 06:43 Ascorbic Acid (Vitamin C) 500 mg EVERY 12 HOURS ORAL 10/25/19 21:00 11/12/19 14:59 10/30/19 09:00 Aspirin (ASA) 81 mg DAILY ORAL 10/26/19 09:00 11/25/19 08:59 10/30/19 10:59 Atorvastatin Calcium (Lipitor) 10 mg BEDTIME ORAL 10/25/19 21:00 01/09/20 20:59 10/29/19 20:57 Carvedilol (Coreg) 12.5 mg EVERY 12 HOURS ORAL 10/25/19 21:00 11/19/19 20:59 10/30/19 11:00 Cinacalcet (Sensipar) 30 mg DAILY ORAL 10/26/19 09:00 01/09/20 08:59 10/30/19 11:01 Dextrose/ Electrolytes 1,000 ml @ 75 mls/hr [id number] IV 10/28/19 23:00 11/27/19 22:59 10/30/19 02:00 Duloxetine HCl (Cymbalta) 60 mg DAILY ORAL 10/26/19 09:00 01/09/20 08:59 10/30/19 11:00 Ferrous Sulfate (Feosol) 325 mg TID ORAL 10/26/19 09:00 01/09/20 08:59 10/30/19 11:01 Folic Acid (Folate) 1 mg DAILY ORAL 10/26/19 09:00 11/10/19 08:59 10/30/19 11:01 Guaifenesin (Mucinex ER) 600 mg EVERY 12 HOURS ORAL 10/25/19 21:00 01/13/20 08:59 10/30/19 11:01 Guaifenesin (Robitussin) 100 mg Q4H PRN ORAL cough 10/25/19 20:30 01/08/20 20:29 Heparin Sodium (Porcine) (Heparin 5000 units/ml) 5,000 units EVERY 12 HOURS SUBQ 10/25/19 21:00 11/25/19 08:59 10/30/19 09:00 Ipratropium [place] (Atrovent Inh) 1 puffs BID INH 10/26/19 09:00 11/24/19 08:59 10/28/19 17:25 Lacosamide (Vimpat) 100 mg Q12HR ORAL 10/25/19 21:00 01/09/20 08:59 10/30/19 11:00 Lidocaine (Lidoderm 5% PATCH) 3 patch DAILY TDERMAL 10/26/19 09:00 01/09/20 08:59 10/30/19 11:04 Magnesium Hydroxide (Mom) 30 ml DAILY PRN ORAL Constipation 10/26/19 09:00 11/09/19 23:29 Pantoprazole (Protonix) 40 mg EVERY 12 HOURS ORAL 10/25/19 21:00 11/10/19 08:59 10/30/19 11:01 Pregabalin (Lyrica) 150 mg Q8HR ORAL 10/25/19 22:00 11/10/19 05:59 10/30/19 06:00 Promethazine HCl/ Codeine (Phenergan with Codeine) 5 ml Q4H PRN ORAL For Cough 10/25/19 20:30 11/09/19 20:29 Darrel Schuster MD Oct 30, 2019 11:58
[2019-10-30 12:00] VITALS: BP 118/67
--- NOTE | 2019-10-30 15:56 | NUR ---
CASE MANAGEMENT:REVIEW SI;COVID-19 PNEUMONIA. ASTHMA. SEIZURES. 98.9 82 20 133/64 95% 3L NC FIO2 @ 36% NO LABS AVAILABLE IS;IVF @ 75 ML/HR MUCINEX ER PO Q12 HRS VIMPAT PO Q12 HRS ATROVENT INH BID ASA PO QD PROTONIX PO Q12 HRS PHENERGAN W/CODEINE PO Q4 HRS PRN MED SURG STATUS DCP;FROM [facility] PLAN;DISCHARGE PLANNING CONTINUE ISOLATION
[2019-10-30 16:00] VITALS: BP 123/65
--- NOTE | 2019-10-30 18:48 | NUR ---
NURSE NOTES: made an attempt to draw blood from patient, unsuccessful. charge nurse notified
--- NOTE | 2019-10-30 19:23 | NUR ---
HAND-OFF: Report given to Josiah.
--- NOTE | 2019-10-30 19:35 | NUR ---
NURSE NOTES: Pt. received from MARKUS Casas. Pt. AAOx3, breathing well, complaints of pain at this time and will follow with pain interventions. IV left upper arm 18g, intact and patent, running D5W 20KCl at 75cc/hr. Bed is low and locked, side rails x3 up, bed alarm active, and call light is in reach. Will continue to monitor.
[2019-10-30 20:00] VITALS: BP 126/71
[2019-10-30] MEDS: HYDROcodone/Acetamin 10/325 tab ORAL PRN (21:52)
--- NOTE | 2019-10-30 22:00 | Progress Note ---
DATE: 10/30/2019 CARDIOLOGY PROGRESS NOTE SUBJECTIVE: The patient's condition unchanged, low flow oxygen, still with mild hypoxia. No respiratory distress. Occasional congestion. PHYSICAL EXAMINATION: VITAL SIGNS: Blood pressure 133/64, pulse 79, respiratory rate 20. LUNGS: Coarse breath sounds. Few rhonchi. CARDIAC: Regular rhythm and rate. Normal S1, S2. ABDOMEN: Soft. EXTREMITIES: No edema. IMPRESSION: 1. COVID-19 pneumonia. 2. COPD. 3. Hypertensive heart disease. 4. Dehydration. 5. . 6. Hypokalemia. PLAN: 1. Off antimicrobial at this time. 2. Maintain isolation. 3. Respiratory hygiene. 4. Monitor volume status and cardiorenal function. 5. Periodic diuresis based on clinical parameters. 6. Trend natriuretic peptide assay. Carlos Eduardo Andino M.D. DR: Juan C JOB#: [id number] CC:
--- NOTE | 2019-10-30 22:15 | NUR ---
NURSE NOTES: Pt. with nausea and x1 episode of emesis, small amount of green, oily and upper right quadrant pain. Will notify Dr. Mcgrath and continue to monitor.
--- NOTE | 2019-10-30 23:00 | NUR ---
NURSE NOTES: Dr. Mcgrath with orders for zofran and AM labs. Zofran administered, after administration pt. with another episode of emesis; scant amount of green, oily emesis. Will continue to monitor.
[2019-10-31] VITALS: BP 103/62
--- NOTE | 2019-10-31 02:30 | Discharge Summary ---
DATE OF ADMISSION: 10/10/2019 DATE OF DISCHARGE: 10/30/2019 ADMISSION DIAGNOSES: 1. COVID-19 pneumonia. 2. Respiratory failure. 3. Asthma. 4. Hypertension. 5. CHF. 6. Chronic kidney disease. 7. History of stroke. 8. Seizure disorder. 9. History of chronic pain. 10. Morbid obesity. DISCHARGE DIAGNOSES: 1. COVID-19 pneumonia. 2. Respiratory failure. 3. Asthma. 4. Hypertension. 5. CHF. 6. Chronic kidney disease. 7. History of stroke. 8. Seizure disorder. 9. History of chronic pain. 10. Morbid obesity. HOSPITAL COURSE: Patient was admitted with complaints of fevers and shortness of breath. She was diagnosed with COVID-19 pneumonia. She received hydroxychloroquine and azithromycin. She had slow progression and improvement in her hypoxemia. She was given MDI's and supplemental oxygen. She had multiple COVID-19 PCR's that were positive. She had 1 that was negative, but patient was hospitalized over 14 days. She had been afebrile for 72 hours without any antipyretics. Per [facility] Guidelines, [facility] can [facility] back [facility] facility off [facility]. Patient will be followed there in 1 to 2 days. DISCHARGE MEDICATIONS: Please see discharge medication list for discharge medications. DIET: Cardiac diet. ACTIVITIES: Ad-kavitha. Kenroy Mcgrath M.D. DR: LUIS JOB#: [id number] CC:
[2019-10-31 04:00] VITALS: BP 125/58
[2019-10-31] MEDS: D5W w/KCl 20mEq 1,000 ML IV SCH ×2 (04:20→17:33)
[2019-10-31] MEDS: HYDROcodone/Acetamin 10/325 tab ORAL PRN (05:16)
[2019-10-31] MEDS: Lyrica 75mg cap ORAL SCH ×3 (05:17→21:03)
[2019-10-31 05:31] LABS: EOSINOPHILS % (AUTO) 0.2 % (0.0-3.0); HEMATOCRIT 38.8 % (37.0-47.0); HEMOGLOBIN 12.5 G/DL (12.0-16.0); LYMPHOCYTES % (AUTO) 16.1 % (20.0-45.0); MEAN CORPUSCULAR VOLUME 89 FL (80-99); MONOCYTES % (AUTO) 9.8 % (1.0-10.0); NEUTROPHILS % (AUTO) 72.9 % (45.0-75.0); PLATELET COUNT 302 K/UL (150-450); RED BLOOD COUNT 4.34 M/UL (4.20-5.40); RED CELL DISTRIBUTION WIDTH 16.7 % (11.6-14.8); WHITE BLOOD COUNT 7.8 K/UL (4.8-10.8)
[2019-10-31 05:57] LABS: ALANINE AMINOTRANSFERASE 20 U/L (12-78); ALBUMIN 2.5 G/DL (3.4-5.0); ALBUMIN/GLOBULIN RATIO 0.6 (1.0-2.7); ALKALINE PHOSPHATASE 82 U/L (46-116); ANION GAP 5 mmol/L (5-15); ASPARTATE AMINO TRANSFERASE 25 U/L (15-37); BILIRUBIN,TOTAL 0.6 MG/DL (0.2-1.0); BLOOD UREA NITROGEN 6 mg/dL (7-18); CALCIUM 9.1 MG/DL (8.5-10.1); CARBON DIOXIDE 37 MMOL/L (21-32); CHLORIDE 95 MMOL/L (98-107); CREATININE 0.9 MG/DL (0.55-1.30); POTASSIUM 3.5 MMOL/L (3.5-5.1); SODIUM 137 MMOL/L (136-145)
--- NOTE | 2019-10-31 07:17 | NUR ---
RD ASSESSMENT & RECOMMENDATIONS SEE CARE ACTIVITY FOR COMPLETE ASSESSMENT DAILY ESTIMATED NEEDS: Needs based on Obesity, cardiac/ 88kg abw 20-23 kcals/kg 7512-1970 total kcals 1-1.5 g protein/kg 88-132 g total protein Fluid per MD, on lasix mL/kg . total fluid mLs NUTRITION DIAGNOSIS: * Morbid obesity R/T lifestyle factors, w/ quadriplegia, as evidenced by BMI>60 per guidelines, pt is 320% of [place] Body Weight. CURRENT DIET:Low Na PO DIET RECOMMENDATIONS: Cardiac (Low Na, Low Fat)/ texture as tolerated ADDITIONAL RECOMMENDATIONS: * Calibrated bedscale wt * Monitor lytes daily, replete as needed (low mag) * Rec A1C for eval * Monitor PO intake- improving at this time -> add Ensure clear TID w/ inadequate meal intake + c/o N/V * Wound care: MVI, continue Vit C
--- NOTE | 2019-10-31 07:44 | NUR ---
HAND-OFF: Report given to MARKUS Reese.
--- NOTE | 2019-10-31 07:50 | NUR ---
NURSE NOTES: Received pt from [place], pt was resting comfortably no acute distress. call light w/in reach.
[2019-10-31 08:00] VITALS: BP 95/64
[2019-10-31] MEDS: Carvedilol 12.5mg tab ORAL SCH ×2 (09:00→21:20)
[2019-10-31] MEDS: Aspirin Baby 81mg ORAL SCH (09:05)
[2019-10-31] MEDS: guaiFENesin ER 600mg tab ORAL SCH ×2 (09:06→21:01)
[2019-10-31] MEDS: Lacosamide 50mg tablet ORAL SCH ×2 (09:06→21:01)
[2019-10-31] MEDS: Ascorbic Acid 500mg tab ORAL SCH ×2 (09:06→21:01)
[2019-10-31] MEDS: Sensipar 30mg Tab ORAL SCH (09:07)
[2019-10-31] MEDS: Heparin 5000 units/ml inj SUBQ SCH ×2 (09:09→21:05)
--- NOTE | 2019-10-31 10:52 | Infectious Diseases Prog Note ---
Assessment/Plan Assessment/Plan antibiotics : none A 1. covid 19 pneumonia s/p rx improving positive tests on 3.28.20, 4.3.20, 4.4.20, 4.6.20, 4.13.20 test negative 4.10.20 2. COPD 3. asthma 4. CVA 5. seizures P 1. continue off antibiotics 2. continue isolation Subjective Constitutional: Denies: fever, chills Respiratory: Reports: dry cough - mild; Denies: shortness of breath Gastrointestinal/Abdominal: Denies: nausea, vomiting, diarrhea Musculoskeletal: Denies: pain Allergies: Coded Allergies: CEFEPIME (Unverified Allergy, Unknown, 11/03/17) LEVOFLOXACIN (Unverified Allergy, Unknown, 11/03/17) PENICILLINS (Unverified Allergy, Unknown, 11/03/17) Objective Vital Signs Last 24 Hour Vital Signs Date Time Temp Pulse Resp B/P (MAP) Pulse Ox O2 Delivery O2 Flow Rate FiO2 10/31/19 09:00 68 95/64 10/31/19 08:03 Nasal Cannula 3.0 10/31/19 08:02 Nasal Cannula 10/31/19 08:02 Nasal Cannula 10/31/19 08:00 97.8 68 20 95/64 (74) 92 10/31/19 04:00 97.7 97 20 125/58 (80) 98 10/31/19 00:00 97.7 98 18 103/62 (76) 98 10/30/19 21:00 Nasal Cannula 3.0 10/30/19 20:00 97.7 91 16 126/71 (89) 94 10/30/19 19:33 Nasal Cannula 10/30/19 19:33 Nasal Cannula 10/30/19 19:33 97 Nasal Cannula 3.0 32 10/30/19 16:00 98.4 82 20 123/65 (84) 100 10/30/19 12:00 98.2 80 19 118/67 (84) 95 10/30/19 11:00 79 140/69 Height (Feet): 5 Height (Inches): 5.00 Weight (Pounds): 370 Laboratory Tests Test 10/31/19 04:10 White Blood Count 7.8 K/UL (4.8-10.8) Red Blood Count 4.34 M/UL (4.20-5.40) Hemoglobin 12.5 G/DL (12.0-16.0) Hematocrit 38.8 % (37.0-47.0) Mean Corpuscular Volume 89 FL (80-99) Mean Corpuscular Hemoglobin 28.9 PG (27.0-31.0) Mean Corpuscular Hemoglobin Concent 32.3 G/DL (32.0-36.0) Red Cell Distribution Width 16.7 % (11.6-14.8) H Platelet Count 302 K/UL (150-450) Mean Platelet Volume 6.4 FL (6.5-10.1) L Neutrophils (%) (Auto) 72.9 % (45.0-75.0) Lymphocytes (%) (Auto) 16.1 % (20.0-45.0) L Monocytes (%) (Auto) 9.8 % (1.0-10.0) Eosinophils (%) (Auto) 0.2 % (0.0-3.0) Basophils (%) (Auto) 1.0 % (0.0-2.0) Sodium Level 137 MMOL/L (136-145) Potassium Level 3.5 MMOL/L (3.5-5.1) Chloride Level 95 MMOL/L (98-107) L Carbon Dioxide Level 37 MMOL/L (21-32) H Anion Gap 5 mmol/L (5-15) Blood Urea Nitrogen 6 mg/dL (7-18) L Creatinine 0.9 MG/DL (0.55-1.30) Estimat Glomerular Filtration Rate > 60 mL/min (>60) Glucose Level 107 MG/DL (74-106) H Calcium Level 9.1 MG/DL (8.5-10.1) Magnesium Level 1.6 MG/DL (1.8-2.4) L Total Bilirubin 0.6 MG/DL (0.2-1.0) Aspartate Amino Transf (AST/SGOT) 25 U/L (15-37) Alanine Aminotransferase (ALT/SGPT) 20 U/L (12-78) Alkaline Phosphatase 82 U/L (46-116) Total Protein 6.7 G/DL (6.4-8.2) Albumin 2.5 G/DL (3.4-5.0) L Globulin 4.2 g/dL Albumin/Globulin Ratio 0.6 (1.0-2.7) L Current Medications Medications (Trade) Dose Ordered Sig/Saira Route PRN Reason Start Time Stop Time Status Last Admin Dose Admin Acetaminophen (Tylenol) 650 mg Q6H PRN ORAL MILD/TEMP 10/25/19 20:30 11/09/19 20:29 10/30/19 06:43 Acetaminophen/ Hydrocodone Bitart ([place] 10/325) 1 tab Q4H PRN ORAL For Pain (4-10) 10/30/19 21:30 11/06/19 21:29 10/31/19 05:16 Ascorbic Acid (Vitamin C) 500 mg EVERY 12 HOURS ORAL 10/25/19 21:00 11/12/19 14:59 10/31/19 09:06 Aspirin (ASA) 81 mg DAILY ORAL 10/26/19 09:00 11/25/19 08:59 10/31/19 09:05 Atorvastatin Calcium (Lipitor) 10 mg BEDTIME ORAL 10/25/19 21:00 01/09/20 20:59 10/29/19 20:57 Carvedilol (Coreg) 12.5 mg EVERY 12 HOURS ORAL 10/25/19 21:00 11/19/19 20:59 10/30/19 11:00 Cinacalcet (Sensipar) 30 mg DAILY ORAL 10/26/19 09:00 01/09/20 08:59 10/31/19 09:07 Dextrose/ Electrolytes 1,000 ml @ 75 mls/hr [id number] IV 10/28/19 23:00 11/27/19 22:59 10/30/19 15:59 Duloxetine HCl (Cymbalta) 60 mg DAILY ORAL 10/26/19 09:00 01/09/20 08:59 10/31/19 09:05 Ferrous Sulfate (Feosol) 325 mg TID ORAL 10/26/19 09:00 01/09/20 08:59 10/31/19 09:05 Folic Acid (Folate) 1 mg DAILY ORAL 10/26/19 09:00 11/10/19 08:59 10/31/19 09:05 Guaifenesin (Mucinex ER) 600 mg EVERY 12 HOURS ORAL 10/25/19 21:00 01/13/20 08:59 10/31/19 09:06 Guaifenesin (Robitussin) 100 mg Q4H PRN ORAL cough 10/25/19 20:30 01/08/20 20:29 Heparin Sodium (Porcine) (Heparin 5000 units/ml) 5,000 units EVERY 12 HOURS SUBQ 10/25/19 21:00 11/25/19 08:59 10/31/19 09:09 Ipratropium [employer] (Atrovent Inh) 1 puffs BID INH 10/26/19 09:00 11/24/19 08:59 10/28/19 17:25 Lacosamide (Vimpat) 100 mg Q12HR ORAL 10/25/19 21:00 01/09/20 08:59 10/31/19 09:06 Lidocaine (Lidoderm 5% PATCH) 3 patch DAILY TDERMAL 10/26/19 09:00 01/09/20 08:59 10/31/19 09:42 Magnesium Hydroxide (Mom) 30 ml DAILY PRN ORAL Constipation 10/26/19 09:00 11/09/19 23:29 Ondansetron HCl (Zofran) 4 mg Q4HR PRN IVP Nausea & Vomiting 10/30/19 22:30 11/29/19 22:29 10/30/19 22:45 Pantoprazole (Protonix) 40 mg EVERY 12 HOURS ORAL 10/25/19 21:00 11/10/19 08:59 10/31/19 09:06 Pregabalin (Lyrica) 150 mg Q8HR ORAL 10/25/19 22:00 11/10/19 05:59 10/31/19 05:17 Promethazine HCl/ Codeine (Phenergan with Codeine) 5 ml Q4H PRN ORAL For Cough 10/25/19 20:30 11/09/19 20:29 Huma Serna MD Oct 31, 2019 10:52
[2019-10-31 12:00] VITALS: BP 109/71
--- NOTE | 2019-10-31 13:37 | General Progress Note ---
Assessment/Plan Problem List: (1) COPD with asthma ICD Codes: J44.9 - Chronic obstructive pulmonary disease, unspecified SNOMED: 85416595536876728 (2) Seizure ICD Codes: R56.9 - Unspecified convulsions SNOMED: 34356387 (3) CVA (cerebral vascular accident) ICD Codes: I63.9 - Cerebral infarction, unspecified SNOMED: 256643581 (4) Functional quadriplegia ICD Codes: R53.2 - Functional quadriplegia SNOMED: 405057484811255 (5) COVID-19 ICD Codes: U07.1 - COVID-19 SNOMED: 618032143 Status: stable Assessment/Plan: Continue current treatment. Supplemental oxygen and breathing treatments if needed. antiemetics. Continue pain regimen. try to avoid narcotics Continue cough treatment. skin care turn q2. ID follow up. monitor labs.dc planning to [facility]. Subjective ROS Limited/Unobtainable: No Constitutional: Reports: malaise, weakness HEENT: Reports: no symptoms Cardiovascular: Reports: no symptoms Respiratory: Reports: cough Gastrointestinal/Abdominal: Reports: abdominal pain Genitourinary: Reports: no symptoms Neurologic/Psychiatric: Reports: anxiety Endocrine: Reports: no symptoms Hematologic/Lymphatic: Reports: no symptoms Allergies: Coded Allergies: CEFEPIME (Unverified Allergy, Unknown, 11/03/17) LEVOFLOXACIN (Unverified Allergy, Unknown, 11/03/17) PENICILLINS (Unverified Allergy, Unknown, 11/03/17) All Systems: reviewed and negative except above Subjective no new complaints. no chest pain. stable sob.increased o2 requirements noted. no fevers. Last night had abdominal pain with some nausea and vomiting after taking [place]. Objective Last 24 Hour Vital Signs Date Time Temp Pulse Resp B/P (MAP) Pulse Ox O2 Delivery O2 Flow Rate FiO2 10/31/19 09:00 68 95/64 10/31/19 08:03 Nasal Cannula 3.0 10/31/19 08:02 Nasal Cannula 10/31/19 08:02 Nasal Cannula 10/31/19 08:00 97.8 68 20 95/64 (74) 92 10/31/19 04:00 97.7 97 20 125/58 (80) 98 10/31/19 00:00 97.7 98 18 103/62 (76) 98 10/30/19 21:00 Nasal Cannula 3.0 10/30/19 20:00 97.7 91 16 126/71 (89) 94 10/30/19 19:33 Nasal Cannula 10/30/19 19:33 Nasal Cannula 10/30/19 19:33 97 Nasal Cannula 3.0 32 10/30/19 16:00 98.4 82 20 123/65 (84) 100 Intake and Output 10/30/19 10/31/19 19:00 07:00 Intake Total 250 ml 400 ml Balance 250 ml 400 ml Intake Oral 250 ml 400 ml # Voids 3 2 Laboratory Tests 10/31/19 04:10: White Blood Count 7.8, Red Blood Count 4.34, Hemoglobin 12.5, Hematocrit 38.8, Mean Corpuscular Volume 89, Mean Corpuscular Hemoglobin 28.9, Mean Corpuscular Hemoglobin Concent 32.3, Red Cell Distribution Width 16.7H, Platelet Count 302, Mean Platelet Volume 6.4L, Neutrophils (%) (Auto) 72.9, Lymphocytes (%) (Auto) 16.1L, Monocytes (%) (Auto) 9.8, Eosinophils (%) (Auto) 0.2, Basophils (%) (Auto ) 1.0, Sodium Level 137, Potassium Level 3.5, Chloride Level 95L, Carbon Dioxide Level 37H, Anion Gap 5, Blood Urea Nitrogen 6L, Creatinine 0.9, Estimat Glomerular Filtration Rate > 60, Glucose Level 107H, Calcium Level 9.1, Magnesium Level 1.6L, Total Bilirubin 0.6, Aspartate Amino Transf (AST/SGOT) 25 , Alanine Aminotransferase (ALT/SGPT) 20, Alkaline Phosphatase 82, Total Protein 6.7, Albumin 2.5L, Globulin 4.2, Albumin/Globulin Ratio 0.6L Height (Feet): 5 Height (Inches): 5.00 Weight (Pounds): 370 Objective General Appearance: WD/WN, alert Neck: supple Cardiovascular: normal rate Respiratory/Chest: chest wall non-tender, lungs clear, normal breath sounds, no respiratory distress Abdomen: normal bowel sounds, non tender, soft, no organomegaly Edema: no edema noted Arm (L), no edema noted Arm (R), no edema noted Leg (L), no edema noted Leg (R), no edema noted Pedal (L), no edema noted Pedal (R), no edema noted Generalized Kenroy Mcgrath MD Oct 31, 2019 13:37
[2019-10-31] MEDS ORDERED: Tubing IV Secondary IV ONE (14:10)
[2019-10-31] MEDS ORDERED: NS 275ml ONE (14:10)
[2019-10-31] MEDS: Ipratropium Bromide Inhaler INH SCH (17:35)
--- NOTE | 2019-10-31 19:15 | NUR ---
NURSE NOTES: Pt. received from MARKUS Reese. AAOx3, NC 3L. IV side intact and running IVF. No acute distress noted. Bed locked, lowest position, alarm on, side rails up, call light within reach. Will continue to monitor.
[2019-10-31 20:00] VITALS: BP 156/78
--- NOTE | 2019-10-31 20:10 | NUR ---
HAND-OFF: Report given to MARKUS Mota pt is in stable condition. Addendum: 10/31/19 at 2038 by MILDRED SHEARER RN RN NURSE NOTES: Wound pic was not taken from morning nurse.
--- NOTE | 2019-10-31 22:17 | Pulmonology Progress Note ---
Assessment/Plan Assessment/Plan Pulmonary Progress Note Assessment/Plan IMPRESSION: Pulmonary infection, asthma, wheezing, history of VRE, COVID positive, stroke. PLAN respiratory care as is monitor for change and optimize ID follow up reviewed off antibiotics; ID care reviewed isolation pending COVID negative DVT prophylaxis dc planning oxygen needs minimal pulmonary colon stable for dc impression, plan, and exam edited and reviewed in detail care discussed with RN Subjective Allergies: Coded Allergies: CEFEPIME (Unverified Allergy, Unknown, 11/03/17) LEVOFLOXACIN (Unverified Allergy, Unknown, 11/03/17) PENICILLINS (Unverified Allergy, Unknown, 11/03/17) Subjective care noted overnight resting in bed no distress noted on oxygen /confused tested COVID + again on 10/25 CXR improved Objective Vital Signs Noted Objective WDWN NAD clear breath sounds bilaterally without rhonchi or wheeze [id number] without MRG NABS nontender no HSM no CCE nonfocal reviewed and edited Current Medications Medications (Trade) Dose Ordered Sig/Saira Route PRN Reason Start Time Stop Time Status Last Admin Dose Admin Acetaminophen (Tylenol) 650 mg Q6H PRN ORAL MILD/TEMP 10/25/19 20:30 11/09/19 20:29 10/30/19 06:43 Ascorbic Acid (Vitamin C) 500 mg EVERY 12 HOURS ORAL 10/25/19 21:00 11/12/19 14:59 10/30/19 09:00 Aspirin (ASA) 81 mg DAILY ORAL 10/26/19 09:00 11/25/19 08:59 10/30/19 10:59 Atorvastatin Calcium (Lipitor) 10 mg BEDTIME ORAL 10/25/19 21:00 01/09/20 20:59 10/29/19 20:57 Carvedilol (Coreg) 12.5 mg EVERY 12 HOURS ORAL 10/25/19 21:00 11/19/19 20:59 10/30/19 11:00 Cinacalcet (Sensipar) 30 mg DAILY ORAL 10/26/19 09:00 01/09/20 08:59 10/30/19 11:01 Dextrose/ Electrolytes 1,000 ml @ 75 mls/hr [id number] IV 10/28/19 23:00 11/27/19 22:59 10/30/19 02:00 Duloxetine HCl (Cymbalta) 60 mg DAILY ORAL 10/26/19 09:00 01/09/20 08:59 10/30/19 11:00 Ferrous Sulfate (Feosol) 325 mg TID ORAL 10/26/19 09:00 01/09/20 08:59 10/30/19 11:01 Folic Acid (Folate) 1 mg DAILY ORAL 10/26/19 09:00 11/10/19 08:59 10/30/19 11:01 Guaifenesin (Mucinex ER) 600 mg EVERY 12 HOURS ORAL 10/25/19 21:00 01/13/20 08:59 10/30/19 11:01 Guaifenesin (Robitussin) 100 mg Q4H PRN ORAL cough 10/25/19 20:30 01/08/20 20:29 Heparin Sodium (Porcine) (Heparin 5000 units/ml) 5,000 units EVERY 12 HOURS SUBQ 10/25/19 21:00 11/25/19 08:59 10/30/19 09:00 Ipratropium [place] (Atrovent Inh) 1 puffs BID INH 10/26/19 09:00 11/24/19 08:59 10/28/19 17:25 Lacosamide (Vimpat) 100 mg Q12HR ORAL 10/25/19 21:00 01/09/20 08:59 10/30/19 11:00 Lidocaine (Lidoderm 5% PATCH) 3 patch DAILY TDERMAL 10/26/19 09:00 01/09/20 08:59 10/30/19 11:04 Magnesium Hydroxide (Mom) 30 ml DAILY PRN ORAL Constipation 10/26/19 09:00 11/09/19 23:29 Pantoprazole (Protonix) 40 mg EVERY 12 HOURS ORAL 10/25/19 21:00 11/10/19 08:59 10/30/19 11:01 Pregabalin (Lyrica) 150 mg Q8HR ORAL 10/25/19 22:00 11/10/19 05:59 10/30/19 06:00 Promethazine HCl/ Codeine (Phenergan with Codeine) 5 ml Q4H PRN ORAL For Cough 10/25/19 20:30 11/09/19 20:29 Subjective ROS Limited/Unobtainable: No Allergies: Coded Allergies: CEFEPIME (Unverified Allergy, Unknown, 11/03/17) LEVOFLOXACIN (Unverified Allergy, Unknown, 11/03/17) PENICILLINS (Unverified Allergy, Unknown, 11/03/17) Objective Last 24 Hour Vital Signs Date Time Temp Pulse Resp B/P (MAP) Pulse Ox O2 Delivery O2 Flow Rate FiO2 10/31/19 21:20 99 156/78 10/31/19 19:54 95 Nasal Cannula 3.0 32 10/31/19 12:00 98.2 91 20 109/71 (84) 94 10/31/19 09:00 68 95/64 10/31/19 08:03 Nasal Cannula 3.0 10/31/19 08:02 Nasal Cannula 10/31/19 08:02 Nasal Cannula 10/31/19 08:00 97.8 68 20 95/64 (74) 92 10/31/19 04:00 97.7 97 20 125/58 (80) 98 10/31/19 00:00 97.7 98 18 103/62 (76) 98 Intake and Output 10/30/19 10/31/19 19:00 07:00 Intake Total 250 ml 400 ml Balance 250 ml 400 ml Intake Oral 250 ml 400 ml # Voids 3 2 Laboratory Tests 10/31/19 04:10: White Blood Count 7.8, Red Blood Count 4.34, Hemoglobin 12.5, Hematocrit 38.8, Mean Corpuscular Volume 89, Mean Corpuscular Hemoglobin 28.9, Mean Corpuscular Hemoglobin Concent 32.3, Red Cell Distribution Width 16.7H, Platelet Count 302, Mean Platelet Volume 6.4L, Neutrophils (%) (Auto) 72.9, Lymphocytes (%) (Auto) 16.1L, Monocytes (%) (Auto) 9.8, Eosinophils (%) (Auto) 0.2, Basophils (%) (Auto ) 1.0, Sodium Level 137, Potassium Level 3.5, Chloride Level 95L, Carbon Dioxide Level 37H, Anion Gap 5, Blood Urea Nitrogen 6L, Creatinine 0.9, Estimat Glomerular Filtration Rate > 60, Glucose Level 107H, Calcium Level 9.1, Magnesium Level 1.6L, Total Bilirubin 0.6, Aspartate Amino Transf (AST/SGOT) 25 , Alanine Aminotransferase (ALT/SGPT) 20, Alkaline Phosphatase 82, Total Protein 6.7, Albumin 2.5L, Globulin 4.2, Albumin/Globulin Ratio 0.6L Current Medications Medications (Trade) Dose Ordered Sig/Saira Route PRN Reason Start Time Stop Time Status Last Admin Dose Admin Acetaminophen (Tylenol) 650 mg Q6H PRN ORAL MILD/TEMP 10/25/19 20:30 11/09/19 20:29 10/30/19 06:43 Acetaminophen/ Hydrocodone Bitart ([place] 10/325) 1 tab Q4H PRN ORAL For Pain (4-10) 10/30/19 21:30 11/06/19 21:29 10/31/19 05:16 Ascorbic Acid (Vitamin C) 500 mg EVERY 12 HOURS ORAL 10/25/19 21:00 11/12/19 14:59 10/31/19 21:01 Aspirin (ASA) 81 mg DAILY ORAL 10/26/19 09:00 11/25/19 08:59 10/31/19 09:05 Atorvastatin Calcium (Lipitor) 10 mg BEDTIME ORAL 10/25/19 21:00 01/09/20 20:59 10/31/19 21:02 Carvedilol (Coreg) 12.5 mg EVERY 12 HOURS ORAL 10/25/19 21:00 11/19/19 20:59 10/31/19 21:20 Cinacalcet (Sensipar) 30 mg DAILY ORAL 10/26/19 09:00 01/09/20 08:59 10/31/19 09:07 Dextrose/ Electrolytes 1,000 ml @ 75 mls/hr [id number] IV 10/28/19 23:00 11/27/19 22:59 10/31/19 17:33 Duloxetine HCl (Cymbalta) 60 mg DAILY ORAL 10/26/19 09:00 01/09/20 08:59 10/31/19 09:05 Ferrous Sulfate (Feosol) 325 mg TID ORAL 10/26/19 09:00 01/09/20 08:59 10/31/19 17:32 Folic Acid (Folate) 1 mg DAILY ORAL 10/26/19 09:00 11/10/19 08:59 10/31/19 09:05 Guaifenesin (Mucinex ER) 600 mg EVERY 12 HOURS ORAL 10/25/19 21:00 01/13/20 08:59 4/18/20 21:01 Guaifenesin (Robitussin) 100 mg Q4H PRN ORAL cough 10/25/19 20:30 01/08/20 20:29 Heparin Sodium (Porcine) (Heparin 5000 units/ml) 5,000 units EVERY 12 HOURS SUBQ 10/25/19 21:00 11/25/19 08:59 10/31/19 21:05 Ipratropium [place] (Atrovent Inh) 1 puffs BID INH 10/26/19 09:00 11/24/19 08:59 10/31/19 17:35 Lacosamide (Vimpat) 100 mg Q12HR ORAL 10/25/19 21:00 01/09/20 08:59 10/31/19 21:01 Lidocaine (Lidoderm 5% PATCH) 3 patch DAILY TDERMAL 10/26/19 09:00 01/09/20 08:59 10/31/19 09:42 Magnesium Hydroxide (Mom) 30 ml DAILY PRN ORAL Constipation 10/26/19 09:00 11/09/19 23:29 Ondansetron HCl (Zofran) 4 mg Q4HR PRN IVP Nausea & Vomiting 10/30/19 22:30 11/29/19 22:29 10/30/19 22:45 Pantoprazole (Protonix) 40 mg EVERY 12 HOURS ORAL 10/25/19 21:00 11/10/19 08:59 10/31/19 21:01 Pregabalin (Lyrica) 150 mg Q8HR ORAL 10/25/19 22:00 11/10/19 05:59 10/31/19 21:03 Promethazine HCl/ Codeine (Phenergan with Codeine) 5 ml Q4H PRN ORAL For Cough 10/25/19 20:30 11/09/19 20:29 Carlos Eduardo Franklin MD Oct 31, 2019 22:17
[2019-10-31 23:57] VITALS: BP 145/70
--- NOTE | 2019-11-01 03:30 | Progress Note ---
DATE: 10/31/2019 CARDIOLOGY PROGRESS NOTE SUBJECTIVE: The patient with little change in condition. Oxygen requirements remained low at 3 liters. Some nausea and vomiting at times, following pain medications, but no chest pain. PHYSICAL EXAMINATION: VITAL SIGNS: Blood pressure low this morning at 95/64, but stabilizes afternoon to 156/78 with heart rate 99, respiratory 21. Patient is afebrile. Saturation is 95% on 3 liters. LUNGS: Coarse breath sounds. Few rhonchi. CARDIAC: Regular rhythm and rate. Normal S1, S2. ABDOMEN: Soft. EXTREMITIES: No edema. LABORATORY DATA: White count 7.8, hemoglobin 12.5, potassium 3.5, magnesium 1.6, and albumin 2.5. IMPRESSION: 1. Hypokalemia. 2. Hypomagnesemia. 3. COVID-19 pneumonia, status post therapy with hydroxychloroquine. 4. Chronic obstructive pulmonary disease. 5. Hypertensive heart disease. 6. Diastolic dysfunction with no signs of acute congestive heart failure. PLAN: 1. Respiratory therapy without change. 2. Replace potassium and magnesium. 3. Await negative COVID swab for discharge. Carlos Eduardo Andino M.D. DR: JOELLEN JOB#: [id number] CC:
[2019-11-01 04:00] VITALS: BP 141/106
[2019-11-01] MEDS: D5W w/KCl 20mEq 1,000 ML IV SCH (05:48)
[2019-11-01] MEDS: Lyrica 75mg cap ORAL SCH ×3 (05:49→22:00)
--- NOTE | 2019-11-01 07:06 | NUR ---
HAND-OFF: Report given to MARKUS Chris.
--- NOTE | 2019-11-01 07:10 | NUR ---
NURSE NOTES: Received patient in bed. Awake, A/O x2. On 3 lpm via NC. Patient denies pain at this time. Purewick in place. IV in the Left forearm running IVF as ordered, site is intact. Bed low and locked, side rails up x2, call light within reach.
[2019-11-01 08:00] VITALS: BP 154/117
[2019-11-01] MEDS: Sensipar 30mg Tab ORAL SCH (08:05)
[2019-11-01] MEDS: Lacosamide 50mg tablet ORAL SCH ×2 (08:05→21:00)
[2019-11-01] MEDS: Ascorbic Acid 500mg tab ORAL SCH ×2 (08:05→20:47)
[2019-11-01] MEDS: Carvedilol 12.5mg tab ORAL SCH ×2 (08:05→20:46)
[2019-11-01] MEDS: Aspirin Baby 81mg ORAL SCH (08:05)
[2019-11-01] MEDS: guaiFENesin ER 600mg tab ORAL SCH ×2 (08:06→20:48)
[2019-11-01] MEDS: Heparin 5000 units/ml inj SUBQ SCH ×2 (08:07→20:52)
[2019-11-01] MEDS: Ipratropium Bromide Inhaler INH SCH ×2 (09:40→18:58)
--- NOTE | 2019-11-01 10:17 | General Progress Note ---
Assessment/Plan Problem List: (1) COPD with asthma ICD Codes: J44.9 - Chronic obstructive pulmonary disease, unspecified SNOMED: 40706494444436611 (2) Seizure ICD Codes: R56.9 - Unspecified convulsions SNOMED: 77093999 (3) CVA (cerebral vascular accident) ICD Codes: I63.9 - Cerebral infarction, unspecified SNOMED: 971063765 (4) Functional quadriplegia ICD Codes: R53.2 - Functional quadriplegia SNOMED: 885907865305806 (5) COVID-19 ICD Codes: U07.1 - COVID-19 SNOMED: 137868506 Status: stable Assessment/Plan: Continue current treatment. Supplemental oxygen and breathing treatments if needed. antiemetics. Continue pain regimen. try to avoid narcotics Continue cough treatment. skin care turn q2. ID follow up. monitor labs.dc planning to [facility]. repeat covid ordered Subjective ROS Limited/Unobtainable: No Constitutional: Reports: malaise, weakness HEENT: Reports: no symptoms Cardiovascular: Reports: no symptoms Respiratory: Reports: cough, shortness of breath Gastrointestinal/Abdominal: Reports: no symptoms Genitourinary: Reports: no symptoms Neurologic/Psychiatric: Reports: anxiety, emotional problems Endocrine: Reports: no symptoms Hematologic/Lymphatic: Reports: no symptoms Allergies: Coded Allergies: CEFEPIME (Unverified Allergy, Unknown, 11/03/17) LEVOFLOXACIN (Unverified Allergy, Unknown, 11/03/17) PENICILLINS (Unverified Allergy, Unknown, 11/03/17) All Systems: reviewed and negative except above Subjective no new complaints. no chest pain. stable sob.increased o2 requirements noted. no fevers. no abd pain. no headaches. c/o generalized pain- chronic. Objective Last 24 Hour Vital Signs Date Time Temp Pulse Resp B/P (MAP) Pulse Ox O2 Delivery O2 Flow Rate FiO2 11/01/19 09:00 Nasal Cannula 3.0 11/01/19 08:05 81 154/117 11/01/19 08:00 98.8 81 20 154/117 (129) 98 11/01/19 07:07 95 Nasal Cannula 3.0 32 11/01/19 04:00 99.0 93 20 141/106 (118) 96 10/31/19 23:57 99.5 98 20 145/70 (95) 98 10/31/19 21:20 99 156/78 10/31/19 21:00 Nasal Cannula 3.0 10/31/19 20:00 98.1 99 21 156/78 (104) 98 10/31/19 19:54 95 Nasal Cannula 3.0 32 10/31/19 12:00 98.2 91 20 109/71 (84) 94 Intake and Output 10/31/19 11/01/19 19:00 07:00 Intake Total 555 ml 950 ml Balance 555 ml 950 ml Intake Oral 480 ml 200 ml IV Total 75 ml 750 ml # Voids 2 # Bowel Movements 1 Height (Feet): 5 Height (Inches): 5.00 Weight (Pounds): 370 Objective General Appearance: WD/WN, alert Neck: supple Cardiovascular: normal rate Respiratory/Chest: chest wall non-tender, lungs clear, normal breath sounds, no respiratory distress Abdomen: normal bowel sounds, non tender, soft, no organomegaly Edema: no edema noted Arm (L), no edema noted Arm (R), no edema noted Leg (L), no edema noted Leg (R), no edema noted Pedal (L), no edema noted Pedal (R), no edema noted Generalized Kenroy Mcgrath MD Nov 01, 2019 10:17
[2019-11-01 12:00] VITALS: BP 146/89
--- NOTE | 2019-11-01 15:43 | Infectious Diseases Prog Note ---
Assessment/Plan Assessment/Plan A 1. COVID 19 pneumonia - Tests are positive on 10/09, 10/15 , 10/16 , 10/18, 10/25 - Test is negative on 10/22 2. COPD 3. asthma 4. CVA 5. seizures 6. Hypokalemia, corrected P 1. repeat COVID19 tests 2. continue isolation Subjective ROS Limited/Unobtainable: Yes Allergies: Coded Allergies: CEFEPIME (Unverified Allergy, Unknown, 11/03/17) LEVOFLOXACIN (Unverified Allergy, Unknown, 11/03/17) PENICILLINS (Unverified Allergy, Unknown, 11/03/17) Objective Vital Signs Last 24 Hour Vital Signs Date Time Temp Pulse Resp B/P (MAP) Pulse Ox O2 Delivery O2 Flow Rate FiO2 11/01/19 12:00 99.1 84 20 146/89 (108) 99 11/01/19 09:00 Nasal Cannula 3.0 11/01/19 08:05 81 154/117 11/01/19 08:00 98.8 81 20 154/117 (129) 98 11/01/19 07:07 95 Nasal Cannula 3.0 32 11/01/19 04:00 99.0 93 20 141/106 (118) 96 10/31/19 23:57 99.5 98 20 145/70 (95) 98 10/31/19 21:20 99 156/78 10/31/19 21:00 Nasal Cannula 3.0 10/31/19 20:00 98.1 99 21 156/78 (104) 98 10/31/19 19:54 95 Nasal Cannula 3.0 32 Height (Feet): 5 Height (Inches): 5.00 Weight (Pounds): 370 General Appearance: no acute distress, other - obese Respiratory/Chest: lungs clear Cardiovascular: normal rate Abdomen: soft, non tender Neurologic/Psychiatric: alert, responsive Current Medications Medications (Trade) Dose Ordered Sig/Saira Route PRN Reason Start Time Stop Time Status Last Admin Dose Admin Acetaminophen (Tylenol) 650 mg Q6H PRN ORAL MILD/TEMP 10/25/19 20:30 11/09/19 20:29 10/30/19 06:43 Acetaminophen/ Hydrocodone Bitart ([place] 10/325) 1 tab Q4H PRN ORAL For Pain (4-10) 10/30/19 21:30 11/06/19 21:29 10/31/19 05:16 Ascorbic Acid (Vitamin C) 500 mg EVERY 12 HOURS ORAL 10/25/19 21:00 11/12/19 14:59 11/01/19 08:05 Aspirin (ASA) 81 mg DAILY ORAL 10/26/19 09:00 11/25/19 08:59 11/01/19 08:05 Atorvastatin Calcium (Lipitor) 10 mg BEDTIME ORAL 10/25/19 21:00 01/09/20 20:59 10/31/19 21:02 Carvedilol (Coreg) 12.5 mg EVERY 12 HOURS ORAL 10/25/19 21:00 11/19/19 20:59 11/01/19 08:05 Cinacalcet (Sensipar) 30 mg DAILY ORAL 10/26/19 09:00 01/09/20 08:59 11/01/19 08:05 Dextrose/ Electrolytes 1,000 ml @ 75 mls/hr [id number] IV 10/28/19 23:00 11/27/19 22:59 11/01/19 05:48 Duloxetine HCl (Cymbalta) 60 mg DAILY ORAL 10/26/19 09:00 01/09/20 08:59 11/01/19 08:06 Ferrous Sulfate (Feosol) 325 mg TID ORAL 10/26/19 09:00 01/09/20 08:59 11/01/19 12:20 Folic Acid (Folate) 1 mg DAILY ORAL 10/26/19 09:00 11/10/19 08:59 11/01/19 08:05 Guaifenesin (Mucinex ER) 600 mg EVERY 12 HOURS ORAL 10/25/19 21:00 01/13/20 08:59 11/01/19 08:06 Guaifenesin (Robitussin) 100 mg Q4H PRN ORAL cough 10/25/19 20:30 01/08/20 20:29 Heparin Sodium (Porcine) (Heparin 5000 units/ml) 5,000 units EVERY 12 HOURS SUBQ 10/25/19 21:00 11/25/19 08:59 11/01/19 08:07 Ipratropium [place] (Atrovent Inh) 1 puffs BID INH 10/26/19 09:00 11/24/19 08:59 10/31/19 17:35 Lacosamide (Vimpat) 100 mg Q12HR ORAL 10/25/19 21:00 01/09/20 08:59 11/01/19 08:05 Lidocaine (Lidoderm 5% PATCH) 3 patch DAILY TDERMAL 10/26/19 09:00 01/09/20 08:59 11/01/19 08:06 Magnesium Hydroxide (Mom) 30 ml DAILY PRN ORAL Constipation 10/26/19 09:00 11/09/19 23:29 Ondansetron HCl (Zofran) 4 mg Q4HR PRN IVP Nausea & Vomiting 10/30/19 22:30 11/29/19 22:29 10/30/19 22:45 Pantoprazole (Protonix) 40 mg EVERY 12 HOURS ORAL 10/25/19 21:00 11/10/19 08:59 11/01/19 08:05 Pregabalin (Lyrica) 150 mg Q8HR ORAL 10/25/19 22:00 11/10/19 05:59 11/01/19 13:46 Promethazine HCl/ Codeine (Phenergan with Codeine) 5 ml Q4H PRN ORAL For Cough 10/25/19 20:30 11/09/19 20:29 Chris Arroyo MD Nov 01, 2019 15:43
[2019-11-01 16:00] VITALS: BP 112/94
--- NOTE | 2019-11-01 19:30 | NUR ---
HAND-OFF: Report given to Gary APARICIO.
--- NOTE | 2019-11-01 19:35 | NUR ---
NURSE NOTES: Receive a report from MARKUS Chris. Round is done. Pt complains for left leg pain. Will provide pain medication as ordered. Breathing is even and non labored. No SOB noted. On O2 3L NC. Ketp semi-folwer's position for lung expansion. Noted IV site infiltrated and stop running IV fluid. Bed-bound. Kept dry and clean. Opticforms on bilateral heels. Call light within reach. Will continue to provide plans of care.
[2019-11-01 20:00] VITALS: BP 116/72
[2019-11-01] MEDS: HYDROcodone/Acetamin 10/325 tab ORAL PRN (20:49)
--- NOTE | 2019-11-01 22:35 | Pulmonology Progress Note ---
Assessment/Plan Assessment/Plan Pulmonary Progress Note Assessment/Plan IMPRESSION: Pulmonary infection, asthma, wheezing, history of VRE, COVID positive, stroke. PLAN respiratory care as is monitor for change and optimize ID follow up reviewed off antibiotics; ID care reviewed isolation pending COVID negative DVT prophylaxis dc planning oxygen needs minimal pulmonary colon stable for dc impression, plan, and exam edited and reviewed in detail care discussed with RN Subjective Allergies: Coded Allergies: CEFEPIME (Unverified Allergy, Unknown, 11/03/17) LEVOFLOXACIN (Unverified Allergy, Unknown, 11/03/17) PENICILLINS (Unverified Allergy, Unknown, 11/03/17) Subjective care noted overnight resting in bed no distress noted on oxygen /confused tested COVID + again on 10/25 CXR improved Objective Vital Signs Noted Objective WDWN NAD clear breath sounds bilaterally without rhonchi or wheeze [id number] without MRG NABS nontender no HSM no CCE nonfocal reviewed and edited Subjective ROS Limited/Unobtainable: No Allergies: Coded Allergies: CEFEPIME (Unverified Allergy, Unknown, 11/03/17) LEVOFLOXACIN (Unverified Allergy, Unknown, 11/03/17) PENICILLINS (Unverified Allergy, Unknown, 11/03/17) Objective Last 24 Hour Vital Signs Date Time Temp Pulse Resp B/P (MAP) Pulse Ox O2 Delivery O2 Flow Rate FiO2 11/01/19 20:46 93 116/72 11/01/19 18:59 Nasal Cannula 3.0 32 11/01/19 18:59 95 Nasal Cannula 3.0 32 11/01/19 18:59 Nasal Cannula 3.0 32 11/01/19 16:00 98.9 90 16 112/94 (100) 94 11/01/19 12:00 99.1 84 20 146/89 (108) 99 11/01/19 09:00 Nasal Cannula 3.0 11/01/19 08:05 81 154/117 11/01/19 08:00 98.8 81 20 154/117 (129) 98 11/01/19 07:07 95 Nasal Cannula 3.0 32 11/01/19 04:00 99.0 93 20 141/106 (118) 96 10/31/19 23:57 99.5 98 20 145/70 (95) 98 Intake and Output 10/31/19 11/01/19 19:00 07:00 Intake Total 555 ml 1025 ml Balance 555 ml 1025 ml Intake Oral 480 ml 200 ml IV Total 75 ml 825 ml # Voids 2 # Bowel Movements 1 Current Medications Medications (Trade) Dose Ordered Sig/Saira Route PRN Reason Start Time Stop Time Status Last Admin Dose Admin Acetaminophen (Tylenol) 650 mg Q6H PRN ORAL MILD/TEMP 10/25/19 20:30 11/09/19 20:29 10/30/19 06:43 Acetaminophen/ Hydrocodone Bitart ([place] 10/325) 1 tab Q4H PRN ORAL For Pain (4-10) 10/30/19 21:30 11/06/19 21:29 11/01/19 20:49 Ascorbic Acid (Vitamin C) 500 mg EVERY 12 HOURS ORAL 10/25/19 21:00 11/12/19 14:59 11/01/19 20:47 Aspirin (ASA) 81 mg DAILY ORAL 10/26/19 09:00 11/25/19 08:59 11/01/19 08:05 Atorvastatin Calcium (Lipitor) 10 mg BEDTIME ORAL 10/25/19 21:00 01/09/20 20:59 11/01/19 20:46 Carvedilol (Coreg) 12.5 mg EVERY 12 HOURS ORAL 10/25/19 21:00 11/19/19 20:59 11/01/19 20:46 Cinacalcet (Sensipar) 30 mg DAILY ORAL 10/26/19 09:00 01/09/20 08:59 11/01/19 08:05 Dextrose/ Electrolytes 1,000 ml @ 75 mls/hr [id number] IV 10/28/19 23:00 11/27/19 22:59 11/01/19 05:48 Duloxetine HCl (Cymbalta) 60 mg DAILY ORAL 10/26/19 09:00 01/09/20 08:59 11/01/19 08:06 Ferrous Sulfate (Feosol) 325 mg TID ORAL 10/26/19 09:00 01/09/20 08:59 11/01/19 18:38 Folic Acid (Folate) 1 mg DAILY ORAL 10/26/19 09:00 11/10/19 08:59 11/01/19 08:05 Guaifenesin (Mucinex ER) 600 mg EVERY 12 HOURS ORAL 10/25/19 21:00 01/13/20 08:59 11/01/19 20:48 Guaifenesin (Robitussin) 100 mg Q4H PRN ORAL cough 10/25/19 20:30 01/08/20 20:29 Heparin Sodium (Porcine) (Heparin 5000 units/ml) 5,000 units EVERY 12 HOURS SUBQ 10/25/19 21:00 11/25/19 08:59 11/01/19 20:52 Ipratropium [place] (Atrovent Inh) 1 puffs BID INH 10/26/19 09:00 11/24/19 08:59 10/31/19 17:35 Lacosamide (Vimpat) 100 mg Q12HR ORAL 10/25/19 21:00 01/09/20 08:59 11/01/19 08:05 Lidocaine (Lidoderm 5% PATCH) 3 patch DAILY TDERMAL 10/26/19 09:00 01/09/20 08:59 11/01/19 08:06 Magnesium Hydroxide (Mom) 30 ml DAILY PRN ORAL Constipation 10/26/19 09:00 11/09/19 23:29 Ondansetron HCl (Zofran) 4 mg Q4HR PRN IVP Nausea & Vomiting 10/30/19 22:30 11/29/19 22:29 10/30/19 22:45 Pantoprazole (Protonix) 40 mg EVERY 12 HOURS ORAL 10/25/19 21:00 11/10/19 08:59 11/01/19 20:48 Pregabalin (Lyrica) 150 mg Q8HR ORAL 10/25/19 22:00 11/10/19 05:59 11/01/19 13:46 Promethazine HCl/ Codeine (Phenergan with Codeine) 5 ml Q4H PRN ORAL For Cough 10/25/19 20:30 11/09/19 20:29 Carlos Eduardo Franklin MD Nov 01, 2019 22:35
--- NOTE | 2019-11-01 23:30 | NUR ---
NURSE NOTES: Establishing IV site on left FA. Pt was able to speak with her daughter on the phone. Will continue to monitor.
[2019-11-02] VITALS: BP 145/76
[2019-11-02] MEDS: D5W w/KCl 20mEq 1,000 ML IV SCH ×3 (00:38→22:18)
--- NOTE | 2019-11-02 00:40 | NUR ---
NURSE NOTES: Noted BT 100.6F without chilling or febrile sensation. Given Tylenol 650mg po as ordered. Provide oral hydration. Will continue to monitor.
[2019-11-02] MEDS ORDERED: HydrALAZINE 25mg tab ORAL PRN (02:00)
[2019-11-02 04:00] VITALS: BP 145/89
--- NOTE | 2019-11-02 04:00 | Progress Note ---
DATE: 11/01/2019 CARDIOLOGY PROGRESS NOTE SUBJECTIVE: No distress. No complaints of shortness of breath. OBJECTIVE: VITAL SIGNS: Blood pressure parameters frequently labile, oxygen saturation 95% to 98% on 3 liters. LUNGS: Bilateral rhonchi, rales. CARDIAC: Regular rhythm and rate. Normal S1, S2. ABDOMEN: Soft. EXTREMITIES: Trace edema. No new lab studies. IMPRESSION: 1. COVID-19 pneumonia status post therapy. 2. Hypoxia, improved. 3. COPD. 4. Hypertensive heart disease with labile blood pressures consistent with hypertensive urgency. 5. Hypomagnesemia. 6. Hypokalemia. 7. Acute myocardial ischemia, now resolved. PLAN: 1. Recheck laboratory studies. 2. Respiratory hygiene. 3. Nasal oxygen. 4. Continue current antihypertensives. 5. As needed hydralazine for blood pressure spikes will be added and if persisting we will need to add additional scheduled therapy for blood pressure management. Carlos Eduardo Andino M.D. DR: JOSE JUAN JOB#: [id number] CC:
--- NOTE | 2019-11-02 06:00 | NUR ---
NURSE NOTES: Done morning care. Complain for leg pain. Given Lyrica 2 c po as ordered. Will continue to monitor.
[2019-11-02] MEDS: Lyrica 75mg cap ORAL SCH ×3 (06:03→22:19)
--- NOTE | 2019-11-02 07:20 | NUR ---
NURSE NOTES: Received patient in bed. Awake, A/o x3. On 3 lpm via NC. Patient denies pain at this time. IV in the Left forearm, site intact. Right arm precautions noted. Bed low and locked, bed rails up x2, patient sitting in semi-fowlers. Call light within reach. Purewick in place.
--- NOTE | 2019-11-02 07:30 | NUR ---
HAND-OFF: Report given to MARKUS Chris.
[2019-11-02 07:34] LABS: BASOPHILS % (AUTO) 0.9 % (0.0-2.0); EOSINOPHILS % (AUTO) 0.4 % (0.0-3.0); HEMATOCRIT 37.8 % (37.0-47.0); HEMOGLOBIN 12.1 G/DL (12.0-16.0); LYMPHOCYTES % (AUTO) 18.3 % (20.0-45.0); MEAN CORPUSCULAR VOLUME 90 FL (80-99); MONOCYTES % (AUTO) 13.7 % (1.0-10.0); NEUTROPHILS % (AUTO) 66.8 % (45.0-75.0); PLATELET COUNT 252 K/UL (150-450); RED BLOOD COUNT 4.22 M/UL (4.20-5.40); RED CELL DISTRIBUTION WIDTH 17.4 % (11.6-14.8); WHITE BLOOD COUNT 9.9 K/UL (4.8-10.8)
[2019-11-02 08:00] VITALS: BP 139/75
[2019-11-02 08:03] LABS: ALANINE AMINOTRANSFERASE 28 U/L (12-78); ALBUMIN 2.5 G/DL (3.4-5.0); ALBUMIN/GLOBULIN RATIO 0.7 (1.0-2.7); ALKALINE PHOSPHATASE 92 U/L (46-116); ANION GAP 10 mmol/L (5-15); ASPARTATE AMINO TRANSFERASE 25 U/L (15-37); BILIRUBIN,TOTAL 0.9 MG/DL (0.2-1.0); BLOOD UREA NITROGEN 11 mg/dL (7-18); CALCIUM 8.6 MG/DL (8.5-10.1); CARBON DIOXIDE 32 MMOL/L (21-32); CHLORIDE 96 MMOL/L (98-107); POTASSIUM 3.9 MMOL/L (3.5-5.1); SODIUM 138 MMOL/L (136-145)
[2019-11-02] MEDS: Aspirin Baby 81mg ORAL SCH (08:21)
[2019-11-02] MEDS: Sensipar 30mg Tab ORAL SCH (08:22)
[2019-11-02] MEDS: Ascorbic Acid 500mg tab ORAL SCH ×2 (08:22→22:19)
[2019-11-02] MEDS: Lacosamide 50mg tablet ORAL SCH ×2 (08:22→22:20)
[2019-11-02] MEDS: guaiFENesin ER 600mg tab ORAL SCH ×2 (08:22→22:20)
[2019-11-02] MEDS: Heparin 5000 units/ml inj SUBQ SCH ×2 (08:25→22:21)
[2019-11-02] MEDS: Carvedilol 12.5mg tab ORAL SCH ×2 (08:34→22:20)
[2019-11-02] MEDS: Ipratropium Bromide Inhaler INH SCH ×2 (09:00→19:30)
--- NOTE | 2019-11-02 10:39 | General Progress Note ---
Assessment/Plan Problem List: (1) COPD with asthma ICD Codes: J44.9 - Chronic obstructive pulmonary disease, unspecified SNOMED: 12493836865619784 (2) Seizure ICD Codes: R56.9 - Unspecified convulsions SNOMED: 97937169 (3) CVA (cerebral vascular accident) ICD Codes: I63.9 - Cerebral infarction, unspecified SNOMED: 420307337 (4) Functional quadriplegia ICD Codes: R53.2 - Functional quadriplegia SNOMED: 432238351243397 (5) COVID-19 ICD Codes: U07.1 - COVID-19 SNOMED: 989307042 Status: stable Assessment/Plan: Continue current treatment. Supplemental oxygen and breathing treatments if needed. antiemetics. Continue pain regimen. try to avoid narcotics Continue cough treatment. skin care turn q2. ID follow up. monitor labs.dc planning to [facility] [place]. repeat covid ordered Subjective ROS Limited/Unobtainable: No Constitutional: Reports: malaise, weakness HEENT: Reports: no symptoms Cardiovascular: Reports: no symptoms Respiratory: Reports: cough, shortness of breath Gastrointestinal/Abdominal: Reports: no symptoms Genitourinary: Reports: no symptoms Neurologic/Psychiatric: Reports: anxiety Endocrine: Reports: no symptoms Hematologic/Lymphatic: Reports: no symptoms Allergies: Coded Allergies: CEFEPIME (Unverified Allergy, Unknown, 11/03/17) LEVOFLOXACIN (Unverified Allergy, Unknown, 11/03/17) PENICILLINS (Unverified Allergy, Unknown, 11/03/17) All Systems: reviewed and negative except above Subjective no new complaints. no chest pain. stable sob.increased o2 requirements noted. no fevers. no abd pain. no headaches. c/o generalized pain- chronic. Objective Last 24 Hour Vital Signs Date Time Temp Pulse Resp B/P (MAP) Pulse Ox O2 Delivery O2 Flow Rate FiO2 11/02/19 09:00 Nasal Cannula 3.0 32 11/02/19 09:00 Nasal Cannula 3.0 32 11/02/19 08:34 89 139/75 11/02/19 08:00 98.9 89 19 139/75 (96) 97 11/02/19 07:00 97 Nasal Cannula 3.0 32 11/02/19 04:00 98.2 95 22 145/89 (107) 94 11/02/19 01:09 98.7 11/02/19 00:00 100.6 93 22 145/76 (99) 95 11/01/19 21:00 Nasal Cannula 3.0 11/01/19 20:46 93 116/72 11/01/19 20:00 99.1 93 18 116/72 (87) 94 11/01/19 18:59 Nasal Cannula 3.0 32 11/01/19 18:59 95 Nasal Cannula 3.0 32 11/01/19 18:59 Nasal Cannula 3.0 32 11/01/19 16:00 98.9 90 16 112/94 (100) 94 11/01/19 12:00 99.1 84 20 146/89 (108) 99 Intake and Output 11/01/19 11/02/19 19:00 07:00 Intake Total 1260 ml 850 ml Balance 1260 ml 850 ml Intake Oral 360 ml 250 ml IV Total 900 ml 600 ml # Voids 2 4 Laboratory Tests 11/02/19 06:00: White Blood Count 9.9, Red Blood Count 4.22, Hemoglobin 12.1, Hematocrit 37.8, Mean Corpuscular Volume 90, Mean Corpuscular Hemoglobin 28.7, Mean Corpuscular Hemoglobin Concent 32.0, Red Cell Distribution Width 17.4H, Platelet Count 252, Mean Platelet Volume 6.9, Neutrophils (%) (Auto) 66.8, Lymphocytes (%) (Auto) 18.3L, Monocytes (%) (Auto) 13.7H, Eosinophils (%) (Auto) 0.4, Basophils (%) ( Auto) 0.9, Sodium Level 138, Potassium Level 3.9, Chloride Level 96L, Carbon Dioxide Level 32, Anion Gap 10, Blood Urea Nitrogen 11, Creatinine 1.0, Estimat Glomerular Filtration Rate > 60, Glucose Level 114H, Calcium Level 8.6, Magnesium Level 2.1, Total Bilirubin 0.9, Aspartate Amino Transf (AST/SGOT) 25, Alanine Aminotransferase (ALT/SGPT) 28, Alkaline Phosphatase 92, Pro-B-Type Natriuretic Peptide 98, Total Protein 6.2L, Albumin 2.5L, Globulin 3.7, Albumin/ Globulin Ratio 0.7L Height (Feet): 5 Height (Inches): 5.00 Weight (Pounds): 370 Objective General Appearance: WD/WN, alert Neck: supple Cardiovascular: normal rate Respiratory/Chest: chest wall non-tender, lungs clear, normal breath sounds, no respiratory distress Abdomen: normal bowel sounds, non tender, soft, no organomegaly Edema: no edema noted Arm (L), no edema noted Arm (R), no edema noted Leg (L), no edema noted Leg (R), no edema noted Pedal (L), no edema noted Pedal (R), no edema noted Generalized Kenroy Mcgrath MD Nov 02, 2019 10:39
--- NOTE | 2019-11-02 11:21 | Infectious Diseases Prog Note ---
Assessment/Plan Assessment/Plan antibiotics : none A 1. covid 19 pneumonia s/p rx improving positive tests on 3.28.20, 4.3.20, 4.4.20, 4.6.20, 4.13.20 test negative 4.10.20 2. COPD 3. asthma 4. CVA 5. seizures P 1. continue off antibiotics 2. continue isolation Subjective ROS Limited/Unobtainable: Yes Allergies: Coded Allergies: CEFEPIME (Unverified Allergy, Unknown, 11/03/17) LEVOFLOXACIN (Unverified Allergy, Unknown, 11/03/17) PENICILLINS (Unverified Allergy, Unknown, 11/03/17) Objective Vital Signs Last 24 Hour Vital Signs Date Time Temp Pulse Resp B/P (MAP) Pulse Ox O2 Delivery O2 Flow Rate FiO2 11/02/19 09:00 Nasal Cannula 3.0 11/02/19 09:00 Nasal Cannula 3.0 32 11/02/19 09:00 Nasal Cannula 3.0 32 11/02/19 08:34 89 139/75 11/02/19 08:00 98.9 89 19 139/75 (96) 97 11/02/19 07:00 97 Nasal Cannula 3.0 32 11/02/19 04:00 98.2 95 22 145/89 (107) 94 11/02/19 01:09 98.7 11/02/19 00:00 100.6 93 22 145/76 (99) 95 11/01/19 21:00 Nasal Cannula 3.0 11/01/19 20:46 93 116/72 11/01/19 20:00 99.1 93 18 116/72 (87) 94 11/01/19 18:59 Nasal Cannula 3.0 32 11/01/19 18:59 95 Nasal Cannula 3.0 32 11/01/19 18:59 Nasal Cannula 3.0 32 11/01/19 16:00 98.9 90 16 112/94 (100) 94 11/01/19 12:00 99.1 84 20 146/89 (108) 99 Height (Feet): 5 Height (Inches): 5.00 Weight (Pounds): 370 Laboratory Tests Test 11/02/19 06:00 White Blood Count 9.9 K/UL (4.8-10.8) Red Blood Count 4.22 M/UL (4.20-5.40) Hemoglobin 12.1 G/DL (12.0-16.0) Hematocrit 37.8 % (37.0-47.0) Mean Corpuscular Volume 90 FL (80-99) Mean Corpuscular Hemoglobin 28.7 PG (27.0-31.0) Mean Corpuscular Hemoglobin Concent 32.0 G/DL (32.0-36.0) Red Cell Distribution Width 17.4 % (11.6-14.8) H Platelet Count 252 K/UL (150-450) Mean Platelet Volume 6.9 FL (6.5-10.1) Neutrophils (%) (Auto) 66.8 % (45.0-75.0) Lymphocytes (%) (Auto) 18.3 % (20.0-45.0) L Monocytes (%) (Auto) 13.7 % (1.0-10.0) H Eosinophils (%) (Auto) 0.4 % (0.0-3.0) Basophils (%) (Auto) 0.9 % (0.0-2.0) Sodium Level 138 MMOL/L (136-145) Potassium Level 3.9 MMOL/L (3.5-5.1) Chloride Level 96 MMOL/L (98-107) L Carbon Dioxide Level 32 MMOL/L (21-32) Anion Gap 10 mmol/L (5-15) Blood Urea Nitrogen 11 mg/dL (7-18) Creatinine 1.0 MG/DL (0.55-1.30) Estimat Glomerular Filtration Rate > 60 mL/min (>60) Glucose Level 114 MG/DL (74-106) H Calcium Level 8.6 MG/DL (8.5-10.1) Magnesium Level 2.1 MG/DL (1.8-2.4) Total Bilirubin 0.9 MG/DL (0.2-1.0) Aspartate Amino Transf (AST/SGOT) 25 U/L (15-37) Alanine Aminotransferase (ALT/SGPT) 28 U/L (12-78) Alkaline Phosphatase 92 U/L (46-116) Pro-B-Type Natriuretic Peptide 98 pg/mL (0-125) Total Protein 6.2 G/DL (6.4-8.2) L Albumin 2.5 G/DL (3.4-5.0) L Globulin 3.7 g/dL Albumin/Globulin Ratio 0.7 (1.0-2.7) L Current Medications Medications (Trade) Dose Ordered Sig/Saira Route PRN Reason Start Time Stop Time Status Last Admin Dose Admin Acetaminophen (Tylenol) 650 mg Q6H PRN ORAL MILD/TEMP 10/25/19 20:30 11/09/19 20:29 11/02/19 00:39 Acetaminophen/ Hydrocodone Bitart ([place] 10/325) 1 tab Q4H PRN ORAL For Pain (4-10) 10/30/19 21:30 11/06/19 21:29 11/01/19 20:49 Ascorbic Acid (Vitamin C) 500 mg EVERY 12 HOURS ORAL 10/25/19 21:00 11/12/19 14:59 11/02/19 08:22 Aspirin (ASA) 81 mg DAILY ORAL 10/26/19 09:00 11/25/19 08:59 11/02/19 08:21 Atorvastatin Calcium (Lipitor) 10 mg BEDTIME ORAL 10/25/19 21:00 01/09/20 20:59 11/01/19 20:46 Carvedilol (Coreg) 12.5 mg EVERY 12 HOURS ORAL 10/25/19 21:00 11/19/19 20:59 11/02/19 08:34 Cinacalcet (Sensipar) 30 mg DAILY ORAL 10/26/19 09:00 01/09/20 08:59 11/02/19 08:22 Dextrose/ Electrolytes 1,000 ml @ 75 mls/hr [id number] IV 10/28/19 23:00 11/27/19 22:59 11/02/19 08:34 Duloxetine HCl (Cymbalta) 60 mg DAILY ORAL 10/26/19 09:00 01/09/20 08:59 11/02/19 08:21 Ferrous Sulfate (Feosol) 325 mg TID ORAL 10/26/19 09:00 01/09/20 08:59 11/02/19 08:21 Folic Acid (Folate) 1 mg DAILY ORAL 10/26/19 09:00 11/10/19 08:59 11/02/19 08:21 Guaifenesin (Mucinex ER) 600 mg EVERY 12 HOURS ORAL 10/25/19 21:00 01/13/20 08:59 11/02/19 08:22 Guaifenesin (Robitussin) 100 mg Q4H PRN ORAL cough 10/25/19 20:30 01/08/20 20:29 Heparin Sodium (Porcine) (Heparin 5000 units/ml) 5,000 units EVERY 12 HOURS SUBQ 10/25/19 21:00 11/25/19 08:59 11/02/19 08:25 Hydralazine HCl (Apresoline) 25 mg Q6H PRN ORAL SBP above 150 and DBP above 90 11/02/19 02:00 01/31/20 01:59 Ipratropium [place] (Atrovent Inh) 1 puffs BID INH 10/26/19 09:00 11/24/19 08:59 10/31/19 17:35 Lacosamide (Vimpat) 100 mg Q12HR ORAL 10/25/19 21:00 01/09/20 08:59 11/02/19 08:22 Lidocaine (Lidoderm 5% PATCH) 3 patch DAILY TDERMAL 10/26/19 09:00 01/09/20 08:59 11/02/19 08:23 Magnesium Hydroxide (Mom) 30 ml DAILY PRN ORAL Constipation 10/26/19 09:00 11/09/19 23:29 Ondansetron HCl (Zofran) 4 mg Q4HR PRN IVP Nausea & Vomiting 10/30/19 22:30 11/29/19 22:29 10/30/19 22:45 Pantoprazole (Protonix) 40 mg EVERY 12 HOURS ORAL 10/25/19 21:00 11/10/19 08:59 11/02/19 08:22 Pregabalin (Lyrica) 150 mg Q8HR ORAL 10/25/19 22:00 11/10/19 05:59 11/02/19 06:03 Promethazine HCl/ Codeine (Phenergan with Codeine) 5 ml Q4H PRN ORAL For Cough 10/25/19 20:30 11/09/19 20:29 Huma Serna MD Nov 02, 2019 11:21
--- NOTE | 2019-11-02 11:40 | Pulmonology Progress Note ---
Assessment/Plan Assessment/Plan IMPRESSION: Pulmonary infection, asthma, wheezing, history of VRE, COVID positive, stroke. PLAN respiratory care as is monitor for change and optimize ID follow up reviewed off antibiotics; ID care reviewed DVT prophylaxis dc planning per primary oxygen needs minimal pulmonary colon stable at present impression, plan, and exam edited and reviewed in detail care discussed with RN Subjective Allergies: Coded Allergies: CEFEPIME (Unverified Allergy, Unknown, 11/03/17) LEVOFLOXACIN (Unverified Allergy, Unknown, 11/03/17) PENICILLINS (Unverified Allergy, Unknown, 11/03/17) Subjective care noted over the weekend resting in bed no distress noted on oxygen /confused imaging reviewed Objective Last 24 Hour Vital Signs Date Time Temp Pulse Resp B/P (MAP) Pulse Ox O2 Delivery O2 Flow Rate FiO2 11/02/19 09:00 Nasal Cannula 3.0 11/02/19 09:00 Nasal Cannula 3.0 32 11/02/19 09:00 Nasal Cannula 3.0 32 11/02/19 08:34 89 139/75 11/02/19 08:00 98.9 89 19 139/75 (96) 97 11/02/19 07:00 97 Nasal Cannula 3.0 32 11/02/19 04:00 98.2 95 22 145/89 (107) 94 11/02/19 01:09 98.7 11/02/19 00:00 100.6 93 22 145/76 (99) 95 11/01/19 21:00 Nasal Cannula 3.0 11/01/19 20:46 93 116/72 11/01/19 20:00 99.1 93 18 116/72 (87) 94 11/01/19 18:59 Nasal Cannula 3.0 32 11/01/19 18:59 95 Nasal Cannula 3.0 32 11/01/19 18:59 Nasal Cannula 3.0 32 11/01/19 16:00 98.9 90 16 112/94 (100) 94 11/01/19 12:00 99.1 84 20 146/89 (108) 99 Intake and Output 11/01/19 11/02/19 19:00 07:00 Intake Total 1260 ml 850 ml Balance 1260 ml 850 ml Intake Oral 360 ml 250 ml IV Total 900 ml 600 ml # Voids 2 4 Objective WDWN NAD clear breath sounds bilaterally without rhonchi or wheeze [id number] without MRG NABS nontender no HSM no CCE nonfocal reviewed and edited Laboratory Tests 11/02/19 06:00: White Blood Count 9.9, Red Blood Count 4.22, Hemoglobin 12.1, Hematocrit 37.8, Mean Corpuscular Volume 90, Mean Corpuscular Hemoglobin 28.7, Mean Corpuscular Hemoglobin Concent 32.0, Red Cell Distribution Width 17.4H, Platelet Count 252, Mean Platelet Volume 6.9, Neutrophils (%) (Auto) 66.8, Lymphocytes (%) (Auto) 18.3L, Monocytes (%) (Auto) 13.7H, Eosinophils (%) (Auto) 0.4, Basophils (%) ( Auto) 0.9, Sodium Level 138, Potassium Level 3.9, Chloride Level 96L, Carbon Dioxide Level 32, Anion Gap 10, Blood Urea Nitrogen 11, Creatinine 1.0, Estimat Glomerular Filtration Rate > 60, Glucose Level 114H, Calcium Level 8.6, Magnesium Level 2.1, Total Bilirubin 0.9, Aspartate Amino Transf (AST/SGOT) 25, Alanine Aminotransferase (ALT/SGPT) 28, Alkaline Phosphatase 92, Pro-B-Type Natriuretic Peptide 98, Total Protein 6.2L, Albumin 2.5L, Globulin 3.7, Albumin/ Globulin Ratio 0.7L Current Medications Medications (Trade) Dose Ordered Sig/Saira Route PRN Reason Start Time Stop Time Status Last Admin Dose Admin Acetaminophen (Tylenol) 650 mg Q6H PRN ORAL MILD/TEMP 10/25/19 20:30 11/09/19 20:29 11/02/19 00:39 Acetaminophen/ Hydrocodone Bitart ([place] 10/325) 1 tab Q4H PRN ORAL For Pain (4-10) 10/30/19 21:30 11/06/19 21:29 11/01/19 20:49 Ascorbic Acid (Vitamin C) 500 mg EVERY 12 HOURS ORAL 10/25/19 21:00 11/12/19 14:59 11/02/19 08:22 Aspirin (ASA) 81 mg DAILY ORAL 10/26/19 09:00 11/25/19 08:59 11/02/19 08:21 Atorvastatin Calcium (Lipitor) 10 mg BEDTIME ORAL 10/25/19 21:00 01/09/20 20:59 11/01/19 20:46 Carvedilol (Coreg) 12.5 mg EVERY 12 HOURS ORAL 10/25/19 21:00 11/19/19 20:59 11/02/19 08:34 Cinacalcet (Sensipar) 30 mg DAILY ORAL 10/26/19 09:00 01/09/20 08:59 11/02/19 08:22 Dextrose/ Electrolytes 1,000 ml @ 75 mls/hr [id number] IV 10/28/19 23:00 11/27/19 22:59 11/02/19 08:34 Duloxetine HCl (Cymbalta) 60 mg DAILY ORAL 10/26/19 09:00 01/09/20 08:59 11/02/19 08:21 Ferrous Sulfate (Feosol) 325 mg TID ORAL 10/26/19 09:00 01/09/20 08:59 11/02/19 08:21 Folic Acid (Folate) 1 mg DAILY ORAL 10/26/19 09:00 11/10/19 08:59 11/02/19 08:21 Guaifenesin (Mucinex ER) 600 mg EVERY 12 HOURS ORAL 10/25/19 21:00 01/13/20 08:59 11/02/19 08:22 Guaifenesin (Robitussin) 100 mg Q4H PRN ORAL cough 10/25/19 20:30 01/08/20 20:29 Heparin Sodium (Porcine) (Heparin 5000 units/ml) 5,000 units EVERY 12 HOURS SUBQ 10/25/19 21:00 11/25/19 08:59 11/02/19 08:25 Hydralazine HCl (Apresoline) 25 mg Q6H PRN ORAL SBP above 150 and DBP above 90 11/02/19 02:00 01/31/20 01:59 Ipratropium [place] (Atrovent Inh) 1 puffs BID INH 10/26/19 09:00 11/24/19 08:59 10/31/19 17:35 Lacosamide (Vimpat) 100 mg Q12HR ORAL 10/25/19 21:00 01/09/20 08:59 11/02/19 08:22 Lidocaine (Lidoderm 5% PATCH) 3 patch DAILY TDERMAL 10/26/19 09:00 01/09/20 08:59 11/02/19 08:23 Magnesium Hydroxide (Mom) 30 ml DAILY PRN ORAL Constipation 10/26/19 09:00 11/09/19 23:29 Ondansetron HCl (Zofran) 4 mg Q4HR PRN IVP Nausea & Vomiting 10/30/19 22:30 11/29/19 22:29 10/30/19 22:45 Pantoprazole (Protonix) 40 mg EVERY 12 HOURS ORAL 10/25/19 21:00 11/10/19 08:59 11/02/19 08:22 Pregabalin (Lyrica) 150 mg Q8HR ORAL 10/25/19 22:00 11/10/19 05:59 11/02/19 06:03 Promethazine HCl/ Codeine (Phenergan with Codeine) 5 ml Q4H PRN ORAL For Cough 10/25/19 20:30 11/09/19 20:29 Darrel Schuster MD Nov 02, 2019 11:40
[2019-11-02 12:00] VITALS: BP 141/76
[2019-11-02 16:00] VITALS: BP 123/45
--- NOTE | 2019-11-02 17:03 | General Progress Note ---
Assessment/Plan Problem List: (1) COPD with asthma ICD Codes: J44.9 - Chronic obstructive pulmonary disease, unspecified SNOMED: 44896805954531057 (2) Seizure ICD Codes: R56.9 - Unspecified convulsions SNOMED: 85179853 (3) CVA (cerebral vascular accident) ICD Codes: I63.9 - Cerebral infarction, unspecified SNOMED: 494258585 (4) Functional quadriplegia ICD Codes: R53.2 - Functional quadriplegia SNOMED: 766474323416895 (5) COVID-19 ICD Codes: U07.1 - COVID-19 SNOMED: 523191559 Status: stable Assessment/Plan: Continue current treatment. Supplemental oxygen and breathing treatments if needed. antiemetics. Continue pain regimen. try to avoid narcotics. cough rx. skin care turn q2. ID follow up. monitor labs.dc planning to [facility] [place]. repeat covid ordered d/w with pts sister brandon Subjective ROS Limited/Unobtainable: No Constitutional: Reports: malaise, weakness HEENT: Reports: no symptoms Cardiovascular: Reports: no symptoms Respiratory: Reports: cough, shortness of breath Gastrointestinal/Abdominal: Reports: no symptoms Genitourinary: Reports: no symptoms Neurologic/Psychiatric: Reports: no symptoms Endocrine: Reports: no symptoms Hematologic/Lymphatic: Reports: anemia Allergies: Coded Allergies: CEFEPIME (Unverified Allergy, Unknown, 11/03/17) LEVOFLOXACIN (Unverified Allergy, Unknown, 11/03/17) PENICILLINS (Unverified Allergy, Unknown, 11/03/17) All Systems: reviewed and negative except above Subjective no new complaints. no chest pain. stable sob.?more confused. no fevers. no abd pain. no headaches. c/o generalized pain- chronic. id and pulm noted. Objective Last 24 Hour Vital Signs Date Time Temp Pulse Resp B/P (MAP) Pulse Ox O2 Delivery O2 Flow Rate FiO2 11/02/19 16:00 97.7 82 19 123/45 (71) 97 11/02/19 12:00 98.7 76 17 141/76 (97) 92 11/02/19 09:00 Nasal Cannula 3.0 11/02/19 09:00 Nasal Cannula 3.0 32 11/02/19 09:00 Nasal Cannula 3.0 32 11/02/19 08:34 89 139/75 11/02/19 08:00 98.9 89 19 139/75 (96) 97 11/02/19 07:00 97 Nasal Cannula 3.0 32 11/02/19 04:00 98.2 95 22 145/89 (107) 94 11/02/19 01:09 98.7 11/02/19 00:00 100.6 93 22 145/76 (99) 95 11/01/19 21:00 Nasal Cannula 3.0 11/01/19 20:46 93 116/72 11/01/19 20:00 99.1 93 18 116/72 (87) 94 11/01/19 18:59 Nasal Cannula 3.0 32 11/01/19 18:59 95 Nasal Cannula 3.0 32 11/01/19 18:59 Nasal Cannula 3.0 32 Intake and Output 11/01/19 11/02/19 19:00 07:00 Intake Total 1260 ml 850 ml Balance 1260 ml 850 ml Intake Oral 360 ml 250 ml IV Total 900 ml 600 ml # Voids 2 4 Laboratory Tests 11/02/19 06:00: White Blood Count 9.9, Red Blood Count 4.22, Hemoglobin 12.1, Hematocrit 37.8, Mean Corpuscular Volume 90, Mean Corpuscular Hemoglobin 28.7, Mean Corpuscular Hemoglobin Concent 32.0, Red Cell Distribution Width 17.4H, Platelet Count 252, Mean Platelet Volume 6.9, Neutrophils (%) (Auto) 66.8, Lymphocytes (%) (Auto) 18.3L, Monocytes (%) (Auto) 13.7H, Eosinophils (%) (Auto) 0.4, Basophils (%) ( Auto) 0.9, Sodium Level 138, Potassium Level 3.9, Chloride Level 96L, Carbon Dioxide Level 32, Anion Gap 10, Blood Urea Nitrogen 11, Creatinine 1.0, Estimat Glomerular Filtration Rate > 60, Glucose Level 114H, Calcium Level 8.6, Magnesium Level 2.1, Total Bilirubin 0.9, Aspartate Amino Transf (AST/SGOT) 25, Alanine Aminotransferase (ALT/SGPT) 28, Alkaline Phosphatase 92, Pro-B-Type Natriuretic Peptide 98, Total Protein 6.2L, Albumin 2.5L, Globulin 3.7, Albumin/ Globulin Ratio 0.7L Height (Feet): 5 Height (Inches): 5.00 Weight (Pounds): 370 Objective General Appearance: WD/WN, alert Neck: supple Cardiovascular: normal rate Respiratory/Chest: chest wall non-tender, lungs clear, normal breath sounds, no respiratory distress Abdomen: normal bowel sounds, non tender, soft, no organomegaly Edema: no edema noted Arm (L), no edema noted Arm (R), no edema noted Leg (L), no edema noted Leg (R), no edema noted Pedal (L), no edema noted Pedal (R), no edema noted Generalized Kenroy Mcgrath MD Nov 02, 2019 17:03
--- NOTE | 2019-11-02 17:16 | NUR ---
CASE MANAGEMENT:REVIEW SI;COVID-19 PNEUMONIA. ASTHMA. SEIZURES. 98.9 89 19 141/76 92% 2L NC FIO2 @ 32% CL 96 ALB 2.5 IS;IVF D5W @ 75 ML/HR ASA PO QD ATROVENT INH BID VIT C PO BID COREG PO HS PROTONIX PO BID ROBITUSSIN PO Q4 HRS PRN PHENERGAN PO Q4 HRS HEPARIN SUBQ BID MED SURG STATUS DCP;FROM [facility] [employer] PLAN;REPEAT COVID-19 TODAY - RESULTS PENDING RESPIRATORY CARE DC PLANNING
--- NOTE | 2019-11-02 19:30 | NUR ---
HAND-OFF: Report given to Tara APARICIO.
[2019-11-02 20:00] VITALS: BP 136/88
--- NOTE | 2019-11-02 20:00 | NUR ---
NURSE NOTES: Received patient in bed, awake, alert, oriented, x2, on 3 liters of oxygen, patient is incontinent x2, no IV or BP on right arm due to mastectomy. IV site is clean dry and intact, call light is within reach, bed is lowered, locked, alarm is on, will continue to monitor for comfort and safety.
--- NOTE | 2019-11-02 23:59 | Progress Note ---
DATE: 11/02/2019 CARDIOLOGY PROGRESS NOTE SUBJECTIVE: The patient's condition largely unchanged. Maintaining oxygen saturations 92% to 97% on 3 liters. No shortness of breath. No congestion. Occasional confusion. PHYSICAL EXAMINATION: LUNGS: Bilateral breath sounds. Few rhonchi. CARDIAC: Regular rhythm and rate. Normal S1, S2. ABDOMEN: Soft. EXTREMITIES: No edema. LABORATORY DATA: White count 9.9, hemoglobin 12.1, potassium 3.9. Magnesium 2.1. BUN 11, creatinine 1. Natriuretic peptide is 98. IMPRESSION: 1. No signs of acute congestive heart failure, stable cardiac rhythms. 2. COVID-19 pneumonia. 3. Hypoxia. 4. COPD with hypoxia. PLAN: 1. Await negative COVID swab. Continue DVT prophylaxis. 2. Nasal oxygen. 3. Respiratory hygiene. No diuresis indicated at this time. Carlos Eduardo Andino M.D. DR: JOSE JUAN JOB#: [id number] CC:
[2019-11-03] VITALS: BP 168/81
[2019-11-03 04:00] VITALS: BP 149/99
[2019-11-03] MEDS: Lyrica 75mg cap ORAL SCH ×3 (05:50→21:34)
--- NOTE | 2019-11-03 07:40 | NUR ---
NURSE NOTES: Received patient in bed, awake, breathing is even and unlabored with oxygen 2L/min via NC. Denies pain or discomfort @ this time. Bed is in lowest position and locked. Call light within reach. Will continue plan of care.
[2019-11-03 08:00] VITALS: BP 147/67
[2019-11-03] MEDS: Ascorbic Acid 500mg tab ORAL SCH ×2 (09:31→21:32)
[2019-11-03] MEDS: Aspirin Baby 81mg ORAL SCH (09:31)
[2019-11-03] MEDS: Sensipar 30mg Tab ORAL SCH (09:31)
[2019-11-03] MEDS: guaiFENesin ER 600mg tab ORAL SCH ×2 (09:32→21:32)
[2019-11-03] MEDS: Lacosamide 50mg tablet ORAL SCH ×2 (09:32→21:32)
[2019-11-03] MEDS: Carvedilol 12.5mg tab ORAL SCH ×2 (09:32→21:31)
[2019-11-03] MEDS: Heparin 5000 units/ml inj SUBQ SCH ×2 (09:33→21:16)
--- NOTE | 2019-11-03 11:36 | General Progress Note ---
Assessment/Plan Problem List: (1) COPD with asthma ICD Codes: J44.9 - Chronic obstructive pulmonary disease, unspecified SNOMED: 41766786028153521 (2) Seizure ICD Codes: R56.9 - Unspecified convulsions SNOMED: 49868458 (3) CVA (cerebral vascular accident) ICD Codes: I63.9 - Cerebral infarction, unspecified SNOMED: 748932271 (4) Functional quadriplegia ICD Codes: R53.2 - Functional quadriplegia SNOMED: 373740321503042 (5) COVID-19 ICD Codes: U07.1 - COVID-19 SNOMED: 868221170 Status: stable Assessment/Plan: Continue current treatment. Supplemental oxygen and breathing treatments if needed. antiemetics. Continue pain regimen. try to avoid narcotics. cough rx. skin care turn q2. ID follow up. monitor labs.dc planning to [facility] [place]. repeat covid ordered d/w with pts sister brandon Subjective ROS Limited/Unobtainable: No Constitutional: Reports: malaise, weakness HEENT: Reports: no symptoms Cardiovascular: Reports: no symptoms Respiratory: Reports: shortness of breath Gastrointestinal/Abdominal: Reports: no symptoms Genitourinary: Reports: no symptoms Neurologic/Psychiatric: Reports: emotional problems Endocrine: Reports: no symptoms Hematologic/Lymphatic: Reports: no symptoms Allergies: Coded Allergies: CEFEPIME (Unverified Allergy, Unknown, 11/03/17) LEVOFLOXACIN (Unverified Allergy, Unknown, 11/03/17) PENICILLINS (Unverified Allergy, Unknown, 11/03/17) All Systems: reviewed and negative except above Subjective no new complaints. no chest pain. stable sob.?more confused. no fevers. no abd pain. no headaches. c/o generalized pain- chronic. id and pulm noted. abg pending. ?co2 retention Objective Last 24 Hour Vital Signs Date Time Temp Pulse Resp B/P (MAP) Pulse Ox O2 Delivery O2 Flow Rate FiO2 11/03/19 09:32 90 147/67 11/03/19 08:00 98.2 90 20 147/67 (93) 99 11/03/19 06:21 98.1 11/03/19 04:00 98.1 86 21 149/99 (116) 99 11/03/19 00:00 98.1 85 19 168/81 (110) 98 11/02/19 22:20 74 135/74 11/02/19 21:50 Nasal Cannula 3.0 11/02/19 20:00 98.7 98 21 136/88 (104) 98 11/02/19 19:31 Nasal Cannula 3.0 32 11/02/19 19:30 97 Nasal Cannula 3.0 32 11/02/19 19:30 Nasal Cannula 3.0 32 11/02/19 16:00 97.7 82 19 123/45 (71) 97 11/02/19 12:00 98.7 76 17 141/76 (97) 92 Intake and Output 11/02/19 11/03/19 19:00 07:00 Intake Total 1025 ml Balance 1025 ml IV Total 825 ml Other 200 ml Height (Feet): 5 Height (Inches): 5.00 Weight (Pounds): 370 Objective General Appearance: WD/WN, alert Neck: supple Cardiovascular: normal rate Respiratory/Chest: chest wall non-tender, lungs clear, normal breath sounds, no respiratory distress Abdomen: normal bowel sounds, non tender, soft, no organomegaly Edema: no edema noted Arm (L), no edema noted Arm (R), no edema noted Leg (L), no edema noted Leg (R), no edema noted Pedal (L), no edema noted Pedal (R), no edema noted Generalized Kenroy Mcgrath MD Nov 03, 2019 11:36
--- NOTE | 2019-11-03 11:40 | Infectious Diseases Prog Note ---
Assessment/Plan Assessment/Plan antibiotics : none A 1. covid 19 pneumonia s/p rx improving positive tests on 3.28.20, 4.3.20, 4.4.20, 4.6.20, 4.13.20 test negative 4.10.20 2. COPD 3. asthma 4. CVA 5. seizures P 1. continue off antibiotics 2. continue isolation Subjective ROS Limited/Unobtainable: Yes Allergies: Coded Allergies: CEFEPIME (Unverified Allergy, Unknown, 11/03/17) LEVOFLOXACIN (Unverified Allergy, Unknown, 11/03/17) PENICILLINS (Unverified Allergy, Unknown, 11/03/17) Objective Vital Signs Last 24 Hour Vital Signs Date Time Temp Pulse Resp B/P (MAP) Pulse Ox O2 Delivery O2 Flow Rate FiO2 11/03/19 09:32 90 147/67 11/03/19 09:00 Nasal Cannula 3.0 11/03/19 08:00 98.2 90 20 147/67 (93) 99 11/03/19 06:21 98.1 11/03/19 04:00 98.1 86 21 149/99 (116) 99 11/03/19 00:00 98.1 85 19 168/81 (110) 98 11/02/19 22:20 74 135/74 11/02/19 21:50 Nasal Cannula 3.0 11/02/19 20:00 98.7 98 21 136/88 (104) 98 11/02/19 19:31 Nasal Cannula 3.0 32 11/02/19 19:30 97 Nasal Cannula 3.0 32 11/02/19 19:30 Nasal Cannula 3.0 32 11/02/19 16:00 97.7 82 19 123/45 (71) 97 11/02/19 12:00 98.7 76 17 141/76 (97) 92 Height (Feet): 5 Height (Inches): 5.00 Weight (Pounds): 370 Current Medications Medications (Trade) Dose Ordered Sig/Saira Route PRN Reason Start Time Stop Time Status Last Admin Dose Admin Acetaminophen (Tylenol) 650 mg Q6H PRN ORAL MILD/TEMP 10/25/19 20:30 11/09/19 20:29 11/02/19 00:39 Acetaminophen/ Hydrocodone Bitart ([place] 10/325) 1 tab Q4H PRN ORAL For Pain (4-10) 10/30/19 21:30 11/06/19 21:29 11/01/19 20:49 Ascorbic Acid (Vitamin C) 500 mg EVERY 12 HOURS ORAL 10/25/19 21:00 11/12/19 14:59 11/03/19 09:31 Aspirin (ASA) 81 mg DAILY ORAL 10/26/19 09:00 11/25/19 08:59 11/03/19 09:31 Atorvastatin Calcium (Lipitor) 10 mg BEDTIME ORAL 10/25/19 21:00 01/09/20 20:59 11/02/19 22:19 Carvedilol (Coreg) 12.5 mg EVERY 12 HOURS ORAL 10/25/19 21:00 11/19/19 20:59 11/03/19 09:32 Cinacalcet (Sensipar) 30 mg DAILY ORAL 10/26/19 09:00 01/09/20 08:59 11/03/19 09:31 Dextrose/ Electrolytes 1,000 ml @ 75 mls/hr [id number] IV 10/28/19 23:00 11/27/19 22:59 11/02/19 22:18 Duloxetine HCl (Cymbalta) 60 mg DAILY ORAL 10/26/19 09:00 01/09/20 08:59 11/03/19 09:32 Ferrous Sulfate (Feosol) 325 mg TID ORAL 10/26/19 09:00 01/09/20 08:59 11/03/19 09:32 Folic Acid (Folate) 1 mg DAILY ORAL 10/26/19 09:00 11/10/19 08:59 11/03/19 09:31 Guaifenesin (Mucinex ER) 600 mg EVERY 12 HOURS ORAL 10/25/19 21:00 01/13/20 08:59 11/03/19 09:32 Guaifenesin (Robitussin) 100 mg Q4H PRN ORAL cough 10/25/19 20:30 01/08/20 20:29 Heparin Sodium (Porcine) (Heparin 5000 units/ml) 5,000 units EVERY 12 HOURS SUBQ 10/25/19 21:00 11/25/19 08:59 11/03/19 09:33 Hydralazine HCl (Apresoline) 25 mg Q6H PRN ORAL SBP above 150 and DBP above 90 11/02/19 02:00 01/31/20 01:59 Ipratropium [place] (Atrovent Inh) 1 puffs BID INH 10/26/19 09:00 11/24/19 08:59 11/02/19 19:30 Lacosamide (Vimpat) 100 mg Q12HR ORAL 10/25/19 21:00 01/09/20 08:59 11/03/19 09:32 Lidocaine (Lidoderm 5% PATCH) 3 patch DAILY TDERMAL 10/26/19 09:00 01/09/20 08:59 11/03/19 10:22 Magnesium Hydroxide (Mom) 30 ml DAILY PRN ORAL Constipation 10/26/19 09:00 11/09/19 23:29 Ondansetron HCl (Zofran) 4 mg Q4HR PRN IVP Nausea & Vomiting 10/30/19 22:30 11/29/19 22:29 10/30/19 22:45 Pantoprazole (Protonix) 40 mg EVERY 12 HOURS ORAL 10/25/19 21:00 11/10/19 08:59 11/03/19 09:31 Pregabalin (Lyrica) 150 mg Q8HR ORAL 10/25/19 22:00 11/10/19 05:59 11/03/19 05:50 Promethazine HCl/ Codeine (Phenergan with Codeine) 5 ml Q4H PRN ORAL For Cough 10/25/19 20:30 11/09/19 20:29 Huma Serna MD Nov 03, 2019 11:40
[2019-11-03 12:00] VITALS: BP 114/64
[2019-11-03] MEDS: D5W w/KCl 20mEq 1,000 ML IV SCH (12:46)
--- NOTE | 2019-11-03 13:00 | NUR ---
NURSE NOTES: Patient's V/S stable. patient is arousable with verbal response. Breathing is even and unlabored. Afebrile.
--- NOTE | 2019-11-03 13:10 | NUR ---
NURSE NOTES: Patient awake, alert x1, confused, sleepy; on Nasal Cannula 3 Liters, no sing of distress and shortness of breath; no sing of chest pain; IV Left For-Arm 22G D5W w/kcl 20 mEq 75cc running; side rails up x2, bed at lowest position, breaks engaged, bed alarm on; call light within reach; will keep monitoring.
--- NOTE | 2019-11-03 13:15 | NUR ---
HAND-OFF: Report given to Shanell and endorsed plan of care.
--- NOTE | 2019-11-03 15:07 | Pulmonology Progress Note ---
Assessment/Plan Assessment/Plan IMPRESSION: Pulmonary infection, asthma, wheezing, history of VRE, COVID positive, stroke. PLAN respiratory care as is monitor for change and optimize ID follow up reviewed off antibiotics; ID care reviewed DVT prophylaxis dc planning per primary oxygen needs minimal pulmonary colon stable at present impression, plan, and exam edited and reviewed in detail care discussed with RN Subjective ROS Limited/Unobtainable: Yes Constitutional: Denies: fever, chills Genitourinary: Reports: last menstrual period Allergies: Coded Allergies: CEFEPIME (Unverified Allergy, Unknown, 11/03/17) LEVOFLOXACIN (Unverified Allergy, Unknown, 11/03/17) PENICILLINS (Unverified Allergy, Unknown, 11/03/17) All Systems: reviewed and negative except above Subjective care noted over the weekend resting in bed no distress noted on oxygen /confused imaging reviewed Objective Last 24 Hour Vital Signs Date Time Temp Pulse Resp B/P (MAP) Pulse Ox O2 Delivery O2 Flow Rate FiO2 11/03/19 14:09 98.1 11/03/19 12:00 98.1 90 20 114/64 (81) 97 11/03/19 09:32 90 147/67 11/03/19 09:00 Nasal Cannula 3.0 11/03/19 08:00 98.2 90 20 147/67 (93) 99 11/03/19 04:00 98.1 86 21 149/99 (116) 99 11/03/19 00:00 98.1 85 19 168/81 (110) 98 11/02/19 22:20 74 135/74 11/02/19 21:50 Nasal Cannula 3.0 11/02/19 20:00 98.7 98 21 136/88 (104) 98 11/02/19 19:31 Nasal Cannula 3.0 32 11/02/19 19:30 97 Nasal Cannula 3.0 32 11/02/19 19:30 Nasal Cannula 3.0 32 11/02/19 16:00 97.7 82 19 123/45 (71) 97 Intake and Output 11/02/19 11/03/19 19:00 07:00 Intake Total 1025 ml 75 ml Balance 1025 ml 75 ml IV Total 825 ml 75 ml Other 200 ml Objective WDWN NAD clear breath sounds bilaterally without rhonchi or wheeze [id number] without MRG NABS nontender no HSM no CCE nonfocal reviewed and edited General Appearance: no acute distress, other - obese HEENT: mucous membranes moist Abdomen: soft, non tender Extremities: no edema Neurologic/Psychiatric: alert, responsive Current Medications Medications (Trade) Dose Ordered Sig/Saira Route PRN Reason Start Time Stop Time Status Last Admin Dose Admin Acetaminophen (Tylenol) 650 mg Q6H PRN ORAL MILD/TEMP 10/25/19 20:30 11/09/19 20:29 11/02/19 00:39 Acetaminophen/ Hydrocodone Bitart ([place] 10/325) 1 tab Q4H PRN ORAL For Pain (4-10) 10/30/19 21:30 11/06/19 21:29 11/01/19 20:49 Ascorbic Acid (Vitamin C) 500 mg EVERY 12 HOURS ORAL 10/25/19 21:00 11/12/19 14:59 11/03/19 09:31 Aspirin (ASA) 81 mg DAILY ORAL 10/26/19 09:00 11/25/19 08:59 11/03/19 09:31 Atorvastatin Calcium (Lipitor) 10 mg BEDTIME ORAL 10/25/19 21:00 01/09/20 20:59 11/02/19 22:19 Carvedilol (Coreg) 12.5 mg EVERY 12 HOURS ORAL 10/25/19 21:00 11/19/19 20:59 11/03/19 09:32 Cinacalcet (Sensipar) 30 mg DAILY ORAL 10/26/19 09:00 01/09/20 08:59 11/03/19 09:31 Dextrose/ Electrolytes 1,000 ml @ 75 mls/hr [id number] IV 10/28/19 23:00 11/27/19 22:59 11/03/19 12:46 Duloxetine HCl (Cymbalta) 60 mg DAILY ORAL 10/26/19 09:00 01/09/20 08:59 11/03/19 09:32 Ferrous Sulfate (Feosol) 325 mg TID ORAL 10/26/19 09:00 01/09/20 08:59 11/03/19 12:46 Folic Acid (Folate) 1 mg DAILY ORAL 10/26/19 09:00 11/10/19 08:59 11/03/19 09:31 Guaifenesin (Mucinex ER) 600 mg EVERY 12 HOURS ORAL 10/25/19 21:00 01/13/20 08:59 11/03/19 09:32 Guaifenesin (Robitussin) 100 mg Q4H PRN ORAL cough 10/25/19 20:30 01/08/20 20:29 Heparin Sodium (Porcine) (Heparin 5000 units/ml) 5,000 units EVERY 12 HOURS SUBQ 10/25/19 21:00 11/25/19 08:59 11/03/19 09:33 Hydralazine HCl (Apresoline) 25 mg Q6H PRN ORAL SBP above 150 and DBP above 90 11/02/19 02:00 01/31/20 01:59 Ipratropium [place] (Atrovent Inh) 1 puffs BID INH 10/26/19 09:00 11/24/19 08:59 11/02/19 19:30 Lacosamide (Vimpat) 100 mg Q12HR ORAL 10/25/19 21:00 01/09/20 08:59 11/03/19 09:32 Lidocaine (Lidoderm 5% PATCH) 3 patch DAILY TDERMAL 10/26/19 09:00 01/09/20 08:59 11/03/19 10:22 Magnesium Hydroxide (Mom) 30 ml DAILY PRN ORAL Constipation 10/26/19 09:00 11/09/19 23:29 Ondansetron HCl (Zofran) 4 mg Q4HR PRN IVP Nausea & Vomiting 10/30/19 22:30 11/29/19 22:29 10/30/19 22:45 Pantoprazole (Protonix) 40 mg EVERY 12 HOURS ORAL 10/25/19 21:00 11/10/19 08:59 11/03/19 09:31 Pregabalin (Lyrica) 150 mg Q8HR ORAL 10/25/19 22:00 11/10/19 05:59 11/03/19 13:39 Promethazine HCl/ Codeine (Phenergan with Codeine) 5 ml Q4H PRN ORAL For Cough 10/25/19 20:30 11/09/19 20:29 Darrel Schuster MD Nov 03, 2019 15:07
[2019-11-03 16:00] VITALS: BP 132/72
[2019-11-03] MEDS: Ipratropium Bromide Inhaler INH SCH (18:00)
--- NOTE | 2019-11-03 19:28 | NUR ---
HAND-OFF: Report given to MARKUS Sanchez.
--- NOTE | 2019-11-03 19:30 | NUR ---
NURSE NOTES: Patient is in bed, awake and able to make needs known. Nasal cannula is on with no signs of distress or SOB. IV intact and patent. Bed locked and in lowest position. No C/O pain at this time. Will continue plan of care.
[2019-11-03 20:00] VITALS: BP 116/83
[2019-11-04] VITALS (7 sets, daily range): BP systolic 120–152; BP diastolic 63–82
--- NOTE | 2019-11-04 01:07 | NUR ---
NURSE NOTES: Dr. Andino made aware of patient's ABG results.
[2019-11-04] MEDS: D5W w/KCl 20mEq 1,000 ML IV SCH ×2 (01:44→15:33)
--- NOTE | 2019-11-04 02:00 | Progress Note ---
DATE: 11/03/2019 CARDIOLOGY PROGRESS NOTE SUBJECTIVE: Time of does not necessarily correlate with the time of visit. No new complaints. Diffuse pain. No shortness of breath. Some confusion. PHYSICAL EXAMINATION: VITAL SIGNS: Blood pressure 147/67, pulse 90, respirations 20, afebrile, oxygen saturation on 3 liters 98%. LUNGS: Bilateral breath sounds. Rhonchi. CARDIAC: Regular rhythm and rate. Normal S1, S2. ABDOMEN: Soft. EXTREMITIES: No edema. LABORATORY DATA: White count 10, hemoglobin 12. Potassium 3.9, BUN 11, creatinine 1, bicarb 32, albumin 2.5. IMPRESSION: 1. Cerebrovascular disease. 2. Dementia. 3. COVID-19 pneumonia. 4. Hypoxia. 5. COPD. 6. Hypertensive heart disease. 7. Severe protein-calorie malnutrition. 8. Hypokalemia and hypomagnesemia corrected. PLAN: Respiratory hygiene. Await clearance of COVID-19 for discharge. Protein supplement. Taper oxygen. Carlos Eduardo Andino M.D. DR: TONY JOB#: [id number] CC:
[2019-11-04] MEDS: Lyrica 75mg cap ORAL SCH ×3 (05:03→21:20)
--- NOTE | 2019-11-04 06:21 | NUR ---
NURSE NOTES: Notified Dr. Andino and [employer] worker of positive result for COVID swab done on 11/01.
--- NOTE | 2019-11-04 07:13 | NUR ---
HAND-OFF: Report given to MARKUS Quiñonez.
--- NOTE | 2019-11-04 10:12 | Pulmonology Progress Note ---
Assessment/Plan Assessment/Plan IMPRESSION: Pulmonary infection, asthma, wheezing, history of VRE, COVID positive, stroke. PLAN respiratory stable off antibiotics; ID care reviewed DVT prophylaxis taper oxygen dc planning per primary oxygen needs minimal pulmonary colon stable at present await isolation clearance impression, plan, and exam edited and reviewed in detail care discussed with RN Subjective ROS Limited/Unobtainable: Yes Constitutional: Denies: fever, chills Genitourinary: Reports: last menstrual period Allergies: Coded Allergies: CEFEPIME (Unverified Allergy, Unknown, 11/03/17) LEVOFLOXACIN (Unverified Allergy, Unknown, 11/03/17) PENICILLINS (Unverified Allergy, Unknown, 11/03/17) All Systems: reviewed and negative except above Subjective care noted over the weekend resting in bed no distress noted on oxygen /confused awaiting dc Objective Last 24 Hour Vital Signs Date Time Temp Pulse Resp B/P (MAP) Pulse Ox O2 Delivery O2 Flow Rate FiO2 11/04/19 08:00 98.2 74 18 136/82 (100) 96 11/04/19 04:00 97.1 91 22 131/77 (95) 94 11/04/19 00:00 98.9 94 22 152/63 (92) 94 11/03/19 21:31 92 116/83 11/03/19 21:14 Nasal Cannula 3.0 32 11/03/19 21:14 98 Nasal Cannula 3.0 32 11/03/19 21:14 Nasal Cannula 3.0 32 11/03/19 21:00 Nasal Cannula 3.0 11/03/19 20:00 98.7 92 20 116/83 (94) 98 11/03/19 16:00 98.2 89 20 132/72 (92) 97 11/03/19 14:09 98.1 11/03/19 12:00 98.1 90 20 114/64 (81) 97 Intake and Output 11/03/19 11/04/19 19:00 07:00 Intake Total 375 ml 200 ml Balance 375 ml 200 ml Intake Oral 200 ml IV Total 375 ml # Voids 2 2 Objective WDWN NAD clear breath sounds bilaterally without rhonchi or wheeze [id number] without MRG NABS nontender no HSM no CCE nonfocal reviewed and edited General Appearance: no acute distress, other - obese HEENT: mucous membranes moist Abdomen: soft, non tender Extremities: no edema Neurologic/Psychiatric: alert, responsive Microbiology Date/Time Source Procedure Growth Status 11/02/19 15:00 Nasopharynx Coronavirus COVID-19 PCR (ABDIAZIZ) - Final Complete Laboratory Tests 11/04/19 00:40: Arterial Blood pH 7.420, Arterial Blood Partial Pressure CO2 62.0*H, Arterial Blood Partial Pressure O2 95.9, Arterial Blood HCO3 39.3H, Arterial Blood Oxygen Saturation 97.3, Arterial Blood Base Excess 12.4*H, Omero Test Positive Current Medications Medications (Trade) Dose Ordered Sig/Saira Route PRN Reason Start Time Stop Time Status Last Admin Dose Admin Acetaminophen (Tylenol) 650 mg Q6H PRN ORAL MILD/TEMP 10/25/19 20:30 11/09/19 20:29 11/02/19 00:39 Acetaminophen/ Hydrocodone Bitart (Fidelity 10/325) 1 tab Q4H PRN ORAL For Pain (4-10) 10/30/19 21:30 11/06/19 21:29 11/01/19 20:49 Ascorbic Acid (Vitamin C) 500 mg EVERY 12 HOURS ORAL 10/25/19 21:00 11/12/19 14:59 11/03/19 09:31 Aspirin (ASA) 81 mg DAILY ORAL 10/26/19 09:00 11/25/19 08:59 11/03/19 09:31 Atorvastatin Calcium (Lipitor) 10 mg BEDTIME ORAL 10/25/19 21:00 01/09/20 20:59 11/02/19 22:19 Carvedilol (Coreg) 12.5 mg EVERY 12 HOURS ORAL 10/25/19 21:00 11/19/19 20:59 11/03/19 21:31 Cinacalcet (Sensipar) 30 mg DAILY ORAL 10/26/19 09:00 01/09/20 08:59 11/03/19 09:31 Dextrose/ Electrolytes 1,000 ml @ 75 mls/hr [id number] IV 10/28/19 23:00 11/27/19 22:59 11/04/19 01:44 Duloxetine HCl (Cymbalta) 60 mg DAILY ORAL 10/26/19 09:00 01/09/20 08:59 11/03/19 09:32 Ferrous Sulfate (Feosol) 325 mg TID ORAL 10/26/19 09:00 01/09/20 08:59 11/03/19 17:05 Folic Acid (Folate) 1 mg DAILY ORAL 10/26/19 09:00 11/10/19 08:59 11/03/19 09:31 Guaifenesin (Mucinex ER) 600 mg EVERY 12 HOURS ORAL 10/25/19 21:00 01/13/20 08:59 11/03/19 09:32 Guaifenesin (Robitussin) 100 mg Q4H PRN ORAL cough 10/25/19 20:30 01/08/20 20:29 Heparin Sodium (Porcine) (Heparin 5000 units/ml) 5,000 units EVERY 12 HOURS SUBQ 10/25/19 21:00 11/25/19 08:59 11/03/19 21:16 Hydralazine HCl (Apresoline) 25 mg Q6H PRN ORAL SBP above 150 and DBP above 90 11/02/19 02:00 01/31/20 01:59 Ipratropium [place] (Atrovent Inh) 1 puffs BID INH 10/26/19 09:00 11/24/19 08:59 11/03/19 18:00 Lacosamide (Vimpat) 100 mg Q12HR ORAL 10/25/19 21:00 01/09/20 08:59 11/03/19 09:32 Lidocaine (Lidoderm 5% PATCH) 3 patch DAILY TDERMAL 10/26/19 09:00 01/09/20 08:59 11/03/19 10:22 Magnesium Hydroxide (Mom) 30 ml DAILY PRN ORAL Constipation 10/26/19 09:00 11/09/19 23:29 Ondansetron HCl (Zofran) 4 mg Q4HR PRN IVP Nausea & Vomiting 10/30/19 22:30 11/29/19 22:29 10/30/19 22:45 Pantoprazole (Protonix) 40 mg EVERY 12 HOURS ORAL 10/25/19 21:00 11/10/19 08:59 11/03/19 09:31 Pregabalin (Lyrica) 150 mg Q8HR ORAL 10/25/19 22:00 11/10/19 05:59 11/03/19 13:39 Promethazine HCl/ Codeine (Phenergan with Codeine) 5 ml Q4H PRN ORAL For Cough 10/25/19 20:30 11/09/19 20:29 Darrel Schuster MD Nov 04, 2019 10:12
[2019-11-04] MEDS: guaiFENesin ER 600mg tab ORAL SCH ×2 (10:15→21:00)
[2019-11-04] MEDS: Ipratropium Bromide Inhaler INH SCH ×2 (10:15→17:16)
[2019-11-04] MEDS: Ascorbic Acid 500mg tab ORAL SCH ×2 (10:15→21:00)
[2019-11-04] MEDS: Heparin 5000 units/ml inj SUBQ SCH ×2 (10:15→21:22)
[2019-11-04] MEDS: Aspirin Baby 81mg ORAL SCH (10:15)
[2019-11-04] MEDS: Carvedilol 12.5mg tab ORAL SCH ×2 (10:15→21:00)
[2019-11-04] MEDS: Lacosamide 50mg tablet ORAL SCH ×2 (10:15→21:00)
[2019-11-04] MEDS: Sensipar 30mg Tab ORAL SCH (10:15)
--- NOTE | 2019-11-04 10:42 | Infectious Diseases Prog Note ---
Assessment/Plan Assessment/Plan antibiotics : none A 1. covid 19 pneumonia s/p rx improving positive tests on 3.28.20, 4.3.20, 4.4.20, 4.6.20, 4.13.20, 4.20.20 test negative 4.10.20 2. COPD 3. asthma 4. CVA 5. seizures P 1. continue off antibiotics 2. continue isolation Subjective Constitutional: Denies: fever, chills Respiratory: Denies: shortness of breath, dry cough Gastrointestinal/Abdominal: Denies: nausea, vomiting, diarrhea Musculoskeletal: Denies: pain Allergies: Coded Allergies: CEFEPIME (Unverified Allergy, Unknown, 11/03/17) LEVOFLOXACIN (Unverified Allergy, Unknown, 11/03/17) PENICILLINS (Unverified Allergy, Unknown, 11/03/17) Objective Vital Signs Last 24 Hour Vital Signs Date Time Temp Pulse Resp B/P (MAP) Pulse Ox O2 Delivery O2 Flow Rate FiO2 11/04/19 08:00 98.2 74 18 136/82 (100) 96 11/04/19 04:00 97.1 91 22 131/77 (95) 94 11/04/19 00:00 98.9 94 22 152/63 (92) 94 11/03/19 21:31 92 116/83 11/03/19 21:14 Nasal Cannula 3.0 32 11/03/19 21:14 98 Nasal Cannula 3.0 32 11/03/19 21:14 Nasal Cannula 3.0 32 11/03/19 21:00 Nasal Cannula 3.0 11/03/19 20:00 98.7 92 20 116/83 (94) 98 11/03/19 16:00 98.2 89 20 132/72 (92) 97 11/03/19 14:09 98.1 11/03/19 12:00 98.1 90 20 114/64 (81) 97 Height (Feet): 5 Height (Inches): 5.00 Weight (Pounds): 381 Microbiology Date/Time Source Procedure Growth Status 11/02/19 15:00 Nasopharynx Coronavirus COVID-19 PCR (ABDIAZIZ) - Final Complete Laboratory Tests Test 11/04/19 00:40 Arterial Blood pH 7.420 (7.350-7.450) Arterial Blood Partial Pressure CO2 62.0 mmHg (35.0-45.0) *H Arterial Blood Partial Pressure O2 95.9 mmHg (75.0-100.0) Arterial Blood HCO3 39.3 mmol/L (22.0-26.0) H Arterial Blood Oxygen Saturation 97.3 % (95-100) Arterial Blood Base Excess 12.4 (-2-2) *H Omero Test Positive Current Medications Medications (Trade) Dose Ordered Sig/Saira Route PRN Reason Start Time Stop Time Status Last Admin Dose Admin Acetaminophen (Tylenol) 650 mg Q6H PRN ORAL MILD/TEMP 10/25/19 20:30 11/09/19 20:29 11/02/19 00:39 Acetaminophen/ Hydrocodone Bitart (Mina 10/325) 1 tab Q4H PRN ORAL For Pain (4-10) 10/30/19 21:30 11/06/19 21:29 11/01/19 20:49 Ascorbic Acid (Vitamin C) 500 mg EVERY 12 HOURS ORAL 10/25/19 21:00 11/12/19 14:59 11/03/19 09:31 Aspirin (ASA) 81 mg DAILY ORAL 10/26/19 09:00 11/25/19 08:59 11/03/19 09:31 Atorvastatin Calcium (Lipitor) 10 mg BEDTIME ORAL 10/25/19 21:00 01/09/20 20:59 11/02/19 22:19 Carvedilol (Coreg) 12.5 mg EVERY 12 HOURS ORAL 10/25/19 21:00 11/19/19 20:59 11/03/19 21:31 Cinacalcet (Sensipar) 30 mg DAILY ORAL 10/26/19 09:00 01/09/20 08:59 11/03/19 09:31 Dextrose/ Electrolytes 1,000 ml @ 75 mls/hr [id number] IV 10/28/19 23:00 11/27/19 22:59 11/04/19 01:44 Duloxetine HCl (Cymbalta) 60 mg DAILY ORAL 10/26/19 09:00 01/09/20 08:59 11/03/19 09:32 Ferrous Sulfate (Feosol) 325 mg TID ORAL 10/26/19 09:00 01/09/20 08:59 11/03/19 17:05 Folic Acid (Folate) 1 mg DAILY ORAL 10/26/19 09:00 11/10/19 08:59 11/03/19 09:31 Guaifenesin (Mucinex ER) 600 mg EVERY 12 HOURS ORAL 10/25/19 21:00 01/13/20 08:59 11/03/19 09:32 Guaifenesin (Robitussin) 100 mg Q4H PRN ORAL cough 10/25/19 20:30 01/08/20 20:29 Heparin Sodium (Porcine) (Heparin 5000 units/ml) 5,000 units EVERY 12 HOURS SUBQ 10/25/19 21:00 11/25/19 08:59 11/03/19 21:16 Hydralazine HCl (Apresoline) 25 mg Q6H PRN ORAL SBP above 150 and DBP above 90 11/02/19 02:00 01/31/20 01:59 Ipratropium [place] (Atrovent Inh) 1 puffs BID INH 10/26/19 09:00 11/24/19 08:59 11/03/19 18:00 Lacosamide (Vimpat) 100 mg Q12HR ORAL 10/25/19 21:00 01/09/20 08:59 11/03/19 09:32 Lidocaine (Lidoderm 5% PATCH) 3 patch DAILY TDERMAL 10/26/19 09:00 01/09/20 08:59 11/03/19 10:22 Magnesium Hydroxide (Mom) 30 ml DAILY PRN ORAL Constipation 10/26/19 09:00 11/09/19 23:29 Ondansetron HCl (Zofran) 4 mg Q4HR PRN IVP Nausea & Vomiting 10/30/19 22:30 11/29/19 22:29 10/30/19 22:45 Pantoprazole (Protonix) 40 mg EVERY 12 HOURS ORAL 10/25/19 21:00 11/10/19 08:59 11/03/19 09:31 Pregabalin (Lyrica) 150 mg Q8HR ORAL 10/25/19 22:00 11/10/19 05:59 11/03/19 13:39 Promethazine HCl/ Codeine (Phenergan with Codeine) 5 ml Q4H PRN ORAL For Cough 10/25/19 20:30 11/09/19 20:29 Huma Serna MD Nov 04, 2019 10:42
--- NOTE | 2019-11-04 15:02 | NUR ---
NURSE NOTES: PT AXOX1-2, PT IS VERY SLEEPY. CANNOT FINISH COMPLETE SENTENCES. VSS. IN NO APPARENT DISTRESS AT THIS TIME. RN WAS UNABLE TO ADMINISTER 0900HR MEDS DUE TO PT SLEEPINESS. BED IN LOWEST POSITION WITH BEDSIDE RAILS X3 RAISED. BED ALARM ON. CALL LIGHT WITHIN REACH. WILL CONTINUE TO MONITOR.
--- NOTE | 2019-11-04 15:14 | General Progress Note ---
Assessment/Plan Problem List: (1) COPD with asthma ICD Codes: J44.9 - Chronic obstructive pulmonary disease, unspecified SNOMED: 64578749195193409 (2) Seizure ICD Codes: R56.9 - Unspecified convulsions SNOMED: 51808186 (3) CVA (cerebral vascular accident) ICD Codes: I63.9 - Cerebral infarction, unspecified SNOMED: 363270183 (4) Functional quadriplegia ICD Codes: R53.2 - Functional quadriplegia SNOMED: 407345878721475 (5) COVID-19 ICD Codes: U07.1 - COVID-19 SNOMED: 706295454 Status: stable Assessment/Plan: Continue current treatment. Supplemental oxygen and breathing treatments if needed. antiemetics. Continue pain regimen. try to avoid narcotics. cough rx. skin care turn q2. ID follow up. monitor labs.dc planning to [facility]. repeat covid still postiive. try to wean o2 d/w with pts sister brandon Subjective ROS Limited/Unobtainable: No Constitutional: Reports: malaise, weakness HEENT: Reports: no symptoms Cardiovascular: Reports: no symptoms Respiratory: Reports: no symptoms Gastrointestinal/Abdominal: Reports: no symptoms Genitourinary: Reports: no symptoms Neurologic/Psychiatric: Reports: anxiety, depressed, emotional problems Endocrine: Reports: no symptoms Hematologic/Lymphatic: Reports: anemia Allergies: Coded Allergies: CEFEPIME (Unverified Allergy, Unknown, 11/03/17) LEVOFLOXACIN (Unverified Allergy, Unknown, 11/03/17) PENICILLINS (Unverified Allergy, Unknown, 11/03/17) All Systems: reviewed and negative except above Subjective no new complaints. no chest pain. stable sob.?more confused. no fevers. no abd pain. no headaches. c/o generalized pain- chronic. id and pulm noted. abg with elevated pc02 Objective Last 24 Hour Vital Signs Date Time Temp Pulse Resp B/P (MAP) Pulse Ox O2 Delivery O2 Flow Rate FiO2 11/04/19 12:00 98.0 90 17 120/73 (89) 100 11/04/19 09:00 Nasal Cannula 3.0 11/04/19 08:00 98.2 74 18 136/82 (100) 96 11/04/19 04:00 97.1 91 22 131/77 (95) 94 11/04/19 00:00 98.9 94 22 152/63 (92) 94 11/03/19 21:31 92 116/83 11/03/19 21:14 Nasal Cannula 3.0 32 11/03/19 21:14 98 Nasal Cannula 3.0 32 11/03/19 21:14 Nasal Cannula 3.0 32 11/03/19 21:00 Nasal Cannula 3.0 11/03/19 20:00 98.7 92 20 116/83 (94) 98 11/03/19 16:00 98.2 89 20 132/72 (92) 97 Intake and Output 11/03/19 11/04/19 19:00 07:00 Intake Total 375 ml 275 ml Balance 375 ml 275 ml Intake Oral 200 ml IV Total 375 ml 75 ml # Voids 2 2 Laboratory Tests 11/04/19 00:40: Arterial Blood pH 7.420, Arterial Blood Partial Pressure CO2 62.0*H, Arterial Blood Partial Pressure O2 95.9, Arterial Blood HCO3 39.3H, Arterial Blood Oxygen Saturation 97.3, Arterial Blood Base Excess 12.4*H, Omero Test Positive Height (Feet): 5 Height (Inches): 5.00 Weight (Pounds): 381 Objective General Appearance: WD/WN, alert Neck: supple Cardiovascular: normal rate Respiratory/Chest: chest wall non-tender, lungs clear, normal breath sounds, no respiratory distress Abdomen: normal bowel sounds, non tender, soft, no organomegaly Edema: no edema noted Arm (L), no edema noted Arm (R), no edema noted Leg (L), no edema noted Leg (R), no edema noted Pedal (L), no edema noted Pedal (R), no edema noted Generalized Kenroy Mcgrath MD Nov 04, 2019 15:14
--- NOTE | 2019-11-04 16:00 | NUR ---
CASE MANAGEMENT:REVIEW SI;COVID-19 INFECTION POSITIVE 11/02/2019 98.9 94 22 152/63 94% 3L NC NO LABS AVAILABLE IS;GUAIFENESIN PO Q12 HRS VIT C PO Q12 HRS ATROVENT INH BID IVF D5 @ 75 ML/HR ASA PO QD MED SURG STATUS DCP;[facility]
--- NOTE | 2019-11-04 18:30 | NUR ---
NURSE NOTES: PT REFUSED SCHEDULED 1800HR MEDICATIONS. PT STATES "I DON'T WANT TO TAKE IRON!". RN ENCOURAGED PT TO TAKE INHALER, BUT PT YELLED "I DON'T NEED TO TAKE MY INHALER!". RN UNABLE TO ADMINISTER SCHEDULED MEDICATIONS.
--- NOTE | 2019-11-04 19:29 | NUR ---
HAND-OFF: Report given to Karen LAGUNA RN.
--- NOTE | 2019-11-04 19:52 | NUR ---
NURSE NOTES: Received patient asleep, no SOB noted. Bed lowered, bed alarm on.
--- NOTE | 2019-11-04 21:30 | NUR ---
NURSE NOTES: Patient vomited greenish liquid, cleansed, bed linen changed, given medication for vomiting. Patient unable to tolerate her scheduled oral medication.
--- NOTE | 2019-11-05 00:29 | Progress Note ---
DATE: 11/04/2019 CARDIOLOGY PROGRESS NOTE SUBJECTIVE: No new complaints, no distress. Chronic pain from her back noted. PHYSICAL EXAMINATION: VITAL SIGNS: Blood pressure 120/73, heart rate 90, respiratory rate 17, oxygen saturation on 3 liters is 94%. LUNGS: Bilateral breath sounds. Few rhonchi. CARDIAC: Regular rhythm and rate. Normal S1, S2. ABDOMEN: Soft. EXTREMITIES: No edema. LABORATORY DATA: ABG, 7.42, 52, 96. IMPRESSION: 1. Chronic respiratory acidosis. 2. COVID-19 pneumonia. 3. Hypertensive heart disease. 4. Pulmonary hypertension. 5. COPD with hypoxia. PLAN: 1. Taper oxygen. 2. The patient . 3. Respiratory hygiene. 4. Continue current cardiovascular medications. 5. Followup electrolytes. 6. Monitor volume status with diuresis based on clinical parameters. Carlos Eduardo Andino M.D. DR: Juan C JOB#: [id number] CC:
[2019-11-05 04:00] VITALS: BP 132/65
[2019-11-05] MEDS: D5W w/KCl 20mEq 1,000 ML IV SCH ×2 (04:26→18:47)
[2019-11-05] MEDS: Lyrica 75mg cap ORAL SCH ×3 (06:00→20:13)
--- NOTE | 2019-11-05 07:16 | NUR ---
HAND-OFF: Report given to Khang Carlos RN.
[2019-11-05 08:00] VITALS: BP 93/78
[2019-11-05] MEDS: Sensipar 30mg Tab ORAL SCH (09:00)
[2019-11-05] MEDS: Ipratropium Bromide Inhaler INH SCH ×2 (09:00→18:47)
[2019-11-05] MEDS: Heparin 5000 units/ml inj SUBQ SCH (09:00)
[2019-11-05] MEDS: Carvedilol 12.5mg tab ORAL SCH ×2 (09:00→20:12)
[2019-11-05] MEDS: guaiFENesin ER 600mg tab ORAL SCH ×2 (09:00→20:12)
[2019-11-05] MEDS: Ascorbic Acid 500mg tab ORAL SCH ×2 (09:00→20:12)
[2019-11-05] MEDS: Lacosamide 50mg tablet ORAL SCH ×2 (09:00→21:00)
[2019-11-05] MEDS: Aspirin Baby 81mg ORAL SCH (09:00)
--- NOTE | 2019-11-05 09:10 | Pulmonology Progress Note ---
Assessment/Plan Assessment/Plan IMPRESSION: Pulmonary infection, asthma, wheezing, history of VRE, COVID positive, stroke. PLAN respiratory stable off antibiotics; ID care reviewed DVT prophylaxis taper oxygen dc planning per primary oxygen needs minimal pulmonary colon stable at present await isolation clearance impression, plan, and exam edited and reviewed in detail care discussed with RN Subjective ROS Limited/Unobtainable: No Constitutional: Denies: fever, chills Gastrointestinal/Abdominal: Denies: nausea, vomiting, diarrhea Genitourinary: Reports: last menstrual period Musculoskeletal: Denies: pain Allergies: Coded Allergies: CEFEPIME (Unverified Allergy, Unknown, 11/03/17) LEVOFLOXACIN (Unverified Allergy, Unknown, 11/03/17) PENICILLINS (Unverified Allergy, Unknown, 11/03/17) All Systems: reviewed and negative except above Subjective care noted over the weekend resting in bed no distress noted on oxygen /confused awaiting dc Objective Last 24 Hour Vital Signs Date Time Temp Pulse Resp B/P (MAP) Pulse Ox O2 Delivery O2 Flow Rate FiO2 11/05/19 09:00 101 93/78 11/05/19 08:00 95.7 101 20 93/78 (83) 98 11/05/19 07:55 95 Nasal Cannula 3.0 32 11/05/19 04:00 96.8 77 20 132/65 (87) 93 11/04/19 23:58 98.4 100 20 142/73 (96) 95 11/04/19 22:00 96 Nasal Cannula 3.0 32 11/04/19 21:02 Nasal Cannula 3.0 11/04/19 21:00 97 132/63 11/04/19 20:00 97.7 97 20 132/63 (86) 94 11/04/19 16:00 98.3 94 18 126/72 (90) 100 11/04/19 12:00 98.0 90 17 120/73 (89) 100 Intake and Output 11/04/19 11/05/19 19:00 07:00 Intake Total 750 ml 1340 ml Balance 750 ml 1340 ml Intake Oral 240 ml IV Total 750 ml 900 ml Other 200 ml # Voids 4 Objective WDWN NAD clear breath sounds bilaterally without rhonchi or wheeze [id number] without MRG NABS nontender no HSM no CCE nonfocal reviewed and edited General Appearance: no acute distress, other - obese HEENT: mucous membranes moist Abdomen: soft, non tender Extremities: no edema Neurologic/Psychiatric: alert, responsive Microbiology Date/Time Source Procedure Growth Status 11/02/19 15:00 Nasopharynx Coronavirus COVID-19 PCR (ABDIAZIZ) - Final Complete Current Medications Medications (Trade) Dose Ordered Sig/Saira Route PRN Reason Start Time Stop Time Status Last Admin Dose Admin Acetaminophen (Tylenol) 650 mg Q6H PRN ORAL MILD/TEMP 10/25/19 20:30 11/09/19 20:29 11/02/19 00:39 Acetaminophen/ Hydrocodone Bitart (Adrian 10/325) 1 tab Q4H PRN ORAL For Pain (4-10) 10/30/19 21:30 11/06/19 21:29 11/01/19 20:49 Ascorbic Acid (Vitamin C) 500 mg EVERY 12 HOURS ORAL 10/25/19 21:00 11/12/19 14:59 11/03/19 09:31 Aspirin (ASA) 81 mg DAILY ORAL 10/26/19 09:00 11/25/19 08:59 11/03/19 09:31 Atorvastatin Calcium (Lipitor) 10 mg BEDTIME ORAL 10/25/19 21:00 01/09/20 20:59 11/02/19 22:19 Carvedilol (Coreg) 12.5 mg EVERY 12 HOURS ORAL 10/25/19 21:00 11/19/19 20:59 11/03/19 21:31 Cinacalcet (Sensipar) 30 mg DAILY ORAL 10/26/19 09:00 01/09/20 08:59 11/03/19 09:31 Dextrose/ Electrolytes 1,000 ml @ 75 mls/hr [id number] IV 10/28/19 23:00 11/27/19 22:59 11/05/19 04:26 Duloxetine HCl (Cymbalta) 60 mg DAILY ORAL 10/26/19 09:00 01/09/20 08:59 11/03/19 09:32 Ferrous Sulfate (Feosol) 325 mg TID ORAL 10/26/19 09:00 01/09/20 08:59 11/03/19 17:05 Folic Acid (Folate) 1 mg DAILY ORAL 10/26/19 09:00 11/10/19 08:59 11/03/19 09:31 Guaifenesin (Mucinex ER) 600 mg EVERY 12 HOURS ORAL 10/25/19 21:00 01/13/20 08:59 11/03/19 09:32 Guaifenesin (Robitussin) 100 mg Q4H PRN ORAL cough 10/25/19 20:30 01/08/20 20:29 Heparin Sodium (Porcine) (Heparin 5000 units/ml) 5,000 units EVERY 12 HOURS SUBQ 10/25/19 21:00 11/25/19 08:59 11/04/19 21:22 Hydralazine HCl (Apresoline) 25 mg Q6H PRN ORAL SBP above 150 and DBP above 90 11/02/19 02:00 01/31/20 01:59 Ipratropium [place] (Atrovent Inh) 1 puffs BID INH 10/26/19 09:00 11/24/19 08:59 11/03/19 18:00 Lacosamide (Vimpat) 100 mg Q12HR ORAL 10/25/19 21:00 01/09/20 08:59 11/03/19 09:32 Lidocaine (Lidoderm 5% PATCH) 3 patch DAILY TDERMAL 10/26/19 09:00 01/09/20 08:59 11/05/19 08:48 Magnesium Hydroxide (Mom) 30 ml DAILY PRN ORAL Constipation 10/26/19 09:00 11/09/19 23:29 Ondansetron HCl (Zofran) 4 mg Q4HR PRN IVP Nausea & Vomiting 10/30/19 22:30 11/29/19 22:29 11/05/19 08:59 Pantoprazole (Protonix) 40 mg EVERY 12 HOURS ORAL 10/25/19 21:00 11/10/19 08:59 11/03/19 09:31 Pregabalin (Lyrica) 150 mg Q8HR ORAL 10/25/19 22:00 11/10/19 05:59 11/03/19 13:39 Promethazine HCl/ Codeine (Phenergan with Codeine) 5 ml Q4H PRN ORAL For Cough 10/25/19 20:30 11/09/19 20:29 Darrel Schuster MD Nov 05, 2019 09:10
--- NOTE | 2019-11-05 10:54 | NUR ---
NURSE NOTES: PT WITH SMALL AMOUNT OF BRIGHT RED EMESIS MIXED WITH DARK GREEN EMESIS. PT WAS CLEANED. PT HAS DIARRHEA, BLACK TARRY STOOL. RN MADE DR CHANG AWARE WITH NEW ORDERS FOR STAT CBC, CMP, TYPE AND SCREEN. ORDERS ENTERED.
--- NOTE | 2019-11-05 11:55 | General Progress Note ---
Assessment/Plan Problem List: (1) COPD with asthma ICD Codes: J44.9 - Chronic obstructive pulmonary disease, unspecified SNOMED: 28939344675615089 (2) Seizure ICD Codes: R56.9 - Unspecified convulsions SNOMED: 57624842 (3) CVA (cerebral vascular accident) ICD Codes: I63.9 - Cerebral infarction, unspecified SNOMED: 263373057 (4) Functional quadriplegia ICD Codes: R53.2 - Functional quadriplegia SNOMED: 248159961282561 (5) COVID-19 ICD Codes: U07.1 - COVID-19 SNOMED: 298334436 Status: stable Assessment/Plan: Continue current treatment. Supplemental oxygen and breathing treatments if needed. antiemetics. Continue pain regimen. try to avoid narcotics. cough rx. skin care turn q2. ID follow up. Check a stat CBC. Type and screen. IV proton pump inhibitor. GI consultation.dc planning to [facility] on hold. repeat covid still postiive. try to wean o2 d/w with pts sister brandon Subjective ROS Limited/Unobtainable: No Constitutional: Reports: malaise, weakness HEENT: Reports: no symptoms Cardiovascular: Reports: no symptoms Respiratory: Reports: cough, shortness of breath Gastrointestinal/Abdominal: Reports: no symptoms Genitourinary: Reports: no symptoms Neurologic/Psychiatric: Reports: anxiety, depressed, emotional problems Endocrine: Reports: no symptoms Hematologic/Lymphatic: Reports: no symptoms Allergies: Coded Allergies: CEFEPIME (Unverified Allergy, Unknown, 11/03/17) LEVOFLOXACIN (Unverified Allergy, Unknown, 11/03/17) PENICILLINS (Unverified Allergy, Unknown, 11/03/17) All Systems: reviewed and negative except above Subjective Had some coffee-ground emesis with bright red blood. Also noted with dark stools questionable melena. Had abdominal pain a few days ago but none today. No fevers chills chest pain or shortness of breath. Remained stable on 2 to 3 L nasal cannula. On heparin for DVT prophylaxis. Objective Last 24 Hour Vital Signs Date Time Temp Pulse Resp B/P (MAP) Pulse Ox O2 Delivery O2 Flow Rate FiO2 11/05/19 09:00 101 93/78 11/05/19 08:00 95.7 101 20 93/78 (83) 98 11/05/19 07:55 95 Nasal Cannula 3.0 32 11/05/19 04:00 96.8 77 20 132/65 (87) 93 11/04/19 23:58 98.4 100 20 142/73 (96) 95 11/04/19 22:00 96 Nasal Cannula 3.0 32 11/04/19 21:02 Nasal Cannula 3.0 11/04/19 21:00 97 132/63 11/04/19 20:00 97.7 97 20 132/63 (86) 94 11/04/19 16:00 98.3 94 18 126/72 (90) 100 11/04/19 12:00 98.0 90 17 120/73 (89) 100 Intake and Output 11/04/19 11/05/19 19:00 07:00 Intake Total 750 ml 1340 ml Balance 750 ml 1340 ml Intake Oral 240 ml IV Total 750 ml 900 ml Other 200 ml # Voids 4 Height (Feet): 5 Height (Inches): 5.00 Weight (Pounds): 381 Objective General Appearance: WD/WN, alert Neck: supple Cardiovascular: normal rate Respiratory/Chest: chest wall non-tender, lungs clear, normal breath sounds, no respiratory distress Abdomen: normal bowel sounds, non tender, soft, no organomegaly Edema: no edema noted Arm (L), no edema noted Arm (R), no edema noted Leg (L), no edema noted Leg (R), no edema noted Pedal (L), no edema noted Pedal (R), no edema noted Generalized Kenroy Mcgrath MD Nov 05, 2019 11:55
[2019-11-05 12:00] VITALS: BP 114/58
[2019-11-05] MEDS ORDERED: Metoclopramide 10mg/2ml Inj IVP PRN (12:58)
--- NOTE | 2019-11-05 14:16 | Infectious Diseases Prog Note ---
Assessment/Plan Assessment/Plan A 1. COVID 19 pneumonia - Tests are positive on 10/09, 10/15 , 10/16 , 10/18, 10/25, 11/01 - Test is negative on 10/22 2. COPD 3. asthma 4. CVA 5. seizures 6. Hypokalemia, corrected P 1. repeat COVID19 tests 2. continue isolation Subjective ROS Limited/Unobtainable: Yes Allergies: Coded Allergies: CEFEPIME (Unverified Allergy, Unknown, 11/03/17) LEVOFLOXACIN (Unverified Allergy, Unknown, 11/03/17) PENICILLINS (Unverified Allergy, Unknown, 11/03/17) Objective Vital Signs Last 24 Hour Vital Signs Date Time Temp Pulse Resp B/P (MAP) Pulse Ox O2 Delivery O2 Flow Rate FiO2 11/05/19 12:00 97.9 90 20 114/58 (76) 98 11/05/19 09:00 101 93/78 11/05/19 08:00 95.7 101 20 93/78 (83) 98 11/05/19 07:55 95 Nasal Cannula 3.0 32 11/05/19 04:00 96.8 77 20 132/65 (87) 93 11/04/19 23:58 98.4 100 20 142/73 (96) 95 11/04/19 22:00 96 Nasal Cannula 3.0 32 11/04/19 21:02 Nasal Cannula 3.0 11/04/19 21:00 97 132/63 11/04/19 20:00 97.7 97 20 132/63 (86) 94 11/04/19 16:00 98.3 94 18 126/72 (90) 100 Height (Feet): 5 Height (Inches): 5.00 Weight (Pounds): 381 General Appearance: no acute distress, other - obese HEENT: mucous membranes moist Respiratory/Chest: other - oxygen by nasal cannula Cardiovascular: normal rate Abdomen: soft, non tender, other - obese Neurologic/Psychiatric: other - sleeping Microbiology Date/Time Source Procedure Growth Status 11/02/19 15:00 Nasopharynx Coronavirus COVID-19 PCR (ABDIAZIZ) - Final Complete Current Medications Medications (Trade) Dose Ordered Sig/Saira Route PRN Reason Start Time Stop Time Status Last Admin Dose Admin Acetaminophen (Tylenol) 650 mg Q6H PRN ORAL MILD/TEMP 10/25/19 20:30 11/09/19 20:29 11/02/19 00:39 Acetaminophen/ Hydrocodone Bitart ([place] 10/325) 1 tab Q4H PRN ORAL For Pain (4-10) 10/30/19 21:30 11/06/19 21:29 11/01/19 20:49 Ascorbic Acid (Vitamin C) 500 mg EVERY 12 HOURS ORAL 10/25/19 21:00 11/12/19 14:59 11/03/19 09:31 Aspirin (ASA) 81 mg DAILY ORAL 10/26/19 09:00 11/25/19 08:59 11/03/19 09:31 Atorvastatin Calcium (Lipitor) 10 mg BEDTIME ORAL 10/25/19 21:00 01/09/20 20:59 11/02/19 22:19 Carvedilol (Coreg) 12.5 mg EVERY 12 HOURS ORAL 10/25/19 21:00 11/19/19 20:59 11/03/19 21:31 Cinacalcet (Sensipar) 30 mg DAILY ORAL 10/26/19 09:00 01/09/20 08:59 11/03/19 09:31 Dextrose/ Electrolytes 1,000 ml @ 75 mls/hr [id number] IV 10/28/19 23:00 11/27/19 22:59 11/05/19 04:26 Duloxetine HCl (Cymbalta) 60 mg DAILY ORAL 10/26/19 09:00 01/09/20 08:59 11/03/19 09:32 Ferrous Sulfate (Feosol) 325 mg TID ORAL 10/26/19 09:00 01/09/20 08:59 11/03/19 17:05 Folic Acid (Folate) 1 mg DAILY ORAL 10/26/19 09:00 11/10/19 08:59 11/03/19 09:31 Guaifenesin (Mucinex ER) 600 mg EVERY 12 HOURS ORAL 10/25/19 21:00 01/13/20 08:59 11/03/19 09:32 Guaifenesin (Robitussin) 100 mg Q4H PRN ORAL cough 10/25/19 20:30 01/08/20 20:29 Hydralazine HCl (Apresoline) 25 mg Q6H PRN ORAL SBP above 150 and DBP above 90 11/02/19 02:00 01/31/20 01:59 Ipratropium [place] (Atrovent Inh) 1 puffs BID INH 10/26/19 09:00 11/24/19 08:59 11/03/19 18:00 Lacosamide (Vimpat) 100 mg Q12HR ORAL 10/25/19 21:00 01/09/20 08:59 11/03/19 09:32 Lidocaine (Lidoderm 5% PATCH) 3 patch DAILY TDERMAL 10/26/19 09:00 01/09/20 08:59 11/05/19 08:48 Magnesium Hydroxide (Mom) 30 ml DAILY PRN ORAL Constipation 10/26/19 09:00 11/09/19 23:29 Metoclopramide HCl (Reglan) 5 mg Q6H PRN IVP Nausea & Vomiting 11/05/19 12:58 12/05/19 12:57 Ondansetron HCl (Zofran) 4 mg Q4HR PRN IVP Nausea & Vomiting 10/30/19 22:30 11/29/19 22:29 11/05/19 08:59 Pantoprazole (Protonix) 40 mg EVERY 12 HOURS ORAL 10/25/19 21:00 11/10/19 08:59 11/03/19 09:31 Pregabalin (Lyrica) 150 mg Q8HR ORAL 10/25/19 22:00 11/10/19 05:59 11/03/19 13:39 Promethazine HCl/ Codeine (Phenergan with Codeine) 5 ml Q4H PRN ORAL For Cough 10/25/19 20:30 11/09/19 20:29 Chris Arroyo MD Nov 05, 2019 14:16
--- NOTE | 2019-11-05 14:37 | NUR ---
NURSE NOTES: DR MADDOX CALLED NEW CONSULT. DR MADDOX WAS INFORMED OF CHANGE IN CONDITION. PER DR MADDOX, PT WILL BE NPO EXCEPT ICE CHIPS AND MEDS AND MD WILL PUT IN MORE ORDERS.
--- NOTE | 2019-11-05 15:10 | NUR ---
NURSE NOTES: COVID 19 SPECIMEN WAS COLLECTED PER DR Keiry BATES'S ORDER AND SENT TO LAB.
--- NOTE | 2019-11-05 15:11 | NUR ---
NURSE NOTES: RN COULD NOT OBTAIN STAT LAB ORDERS PERIPHERALLY. RN CONTACTED LAB 3 TIMES TO ASSIST WITH OBTAINING ORDERED STAT LABS. NO LABS WERE DRAWN. ON THIRD CALL, RN SPOKE TO KYLEE AND MADE AWARE OF STAT LABS NEEDING TO BE DRAWN.
--- NOTE | 2019-11-05 15:17 | NUR ---
RADIOLOGY DEPT., ABDOMEN X-RAY DONE.-P.DYE
--- NOTE | 2019-11-05 15:22 | Diagnostic Imaging Report ---
Indication: Abdominal pain Technique: Supine view of the abdomen Comparison: 11/05/2017 Findings: Body habitus limits evaluation. Small bowel loops are prominent, gas-filled, upper limits of normal in caliber than not frankly dilated.. Inferior vena cava filter is again demonstrated. Right hip prosthesis is again demonstrated. Impression: Findings as noted. No definite acute process
[2019-11-05 16:00] VITALS: BP 135/80
[2019-11-05 17:02] LABS: BASOPHILS % (AUTO) 2.2 % (0.0-2.0); EOSINOPHILS % (AUTO) 0.4 % (0.0-3.0); HEMOGLOBIN 11.4 G/DL (12.0-16.0); LYMPHOCYTES % (AUTO) 19.2 % (20.0-45.0); MEAN CORPUSCULAR VOLUME 96 FL (80-99); MONOCYTES % (AUTO) 15.6 % (1.0-10.0); NEUTROPHILS % (AUTO) 62.6 % (45.0-75.0); PLATELET COUNT 287 K/UL (150-450); RED BLOOD COUNT 3.97 M/UL (4.20-5.40); RED CELL DISTRIBUTION WIDTH 18.8 % (11.6-14.8); WHITE BLOOD COUNT 7.9 K/UL (4.8-10.8)
[2019-11-05 17:14] LABS: ANION GAP 6 mmol/L (5-15); BLOOD UREA NITROGEN 7 mg/dL (7-18); CALCIUM 9.9 MG/DL (8.5-10.1); CARBON DIOXIDE 34 MMOL/L (21-32); CHLORIDE 100 MMOL/L (98-107); CREATININE 0.8 MG/DL (0.55-1.30); POTASSIUM 4.2 MMOL/L (3.5-5.1); SODIUM 140 MMOL/L (136-145)
[2019-11-05 17:19] LABS: ALANINE AMINOTRANSFERASE 24 U/L (12-78); ALBUMIN 2.1 G/DL (3.4-5.0); ALBUMIN/GLOBULIN RATIO 0.5 (1.0-2.7); ALKALINE PHOSPHATASE 93 U/L (46-116); ASPARTATE AMINO TRANSFERASE 26 U/L (15-37); BILIRUBIN,TOTAL 0.7 MG/DL (0.2-1.0)
--- NOTE | 2019-11-05 17:59 | Consultation ---
DATE OF CONSULTATION: 11/05/2019 CONSULTING PHYSICIAN: Hussein Stacy MD. REFERRING PHYSICIAN: Kenroy Mcgrath MD. CHIEF COMPLAINT: Coffee-ground emesis. HISTORY OF PRESENT ILLNESS: This is a 69-year-old female, , with numerous medical problems, which I will dictate in a second, transferred from correction with pneumonia COVID-positive. GI consultation requested because she is vomiting since yesterday and had some coffee-ground emesis. PAST MEDICAL HISTORY: 1. COPD. 2. Asthma. 3. Breast cancer, status post right mastectomy. 4. History of IVC filter placement for DVT. 5. Morbid obesity. 6. Peripheral vascular disease. 7. Peripheral neuropathy. 8. History of left knee fracture requiring repair. ALLERGIES: To cefepime, Levaquin, penicillin. MEDICATIONS: Please see medication reconciliation list. SOCIAL HISTORY: Currently lives in a correction. No recent history of tobacco, alcohol, or IV drug abuse. FAMILY HISTORY: Noncontributory. REVIEW OF SYSTEMS: Limited. PHYSICAL EXAMINATION: VITAL SIGNS: Temperature 97.9, pulse is 90, respirations 20, blood pressure is 114/58. HEENT: Normocephalic and atraumatic. Sclerae anicteric. NECK: Supple. No evidence of lymphadenopathy. CARDIOVASCULAR: Regular rhythm. Plus S1, S2. LUNGS: Decreased breath sounds bilaterally and diffusely. ABDOMEN: Soft, nontender. No rebound. No guarding. No peritoneal sign. EXTREMITIES: No cyanosis. No clubbing. No edema. LABORATORY DATA: White count is 9.9, hemoglobin 12, hematocrit 37, platelet count is 252,000. Chem-7, sodium 138, potassium 3.9, BUN 11, creatinine is 1.0. ASSESSMENT: This is a 69-year-old female COVID-positive pneumonia with nausea, vomiting, and coffee-ground emesis. PLAN: Keep the patient n.p.o. for today. Repeat CBC and transfuse as needed to keep hemoglobin above 7. PPI b.i.d. Reglan and Zofran combo for control of nausea. IV fluids for hydration. Stool for OB. Given active COVID infection, we want to hold off endoscopy under the medical emergency. Meanwhile, we are also going to order KUB. I want to thank, Dr. Mcgrath, for this kind referral. Hussein Stacy M.D. DR: Petra JOB#: [id number] CC: Kenroy Mcgrath M.D.
--- NOTE | 2019-11-05 19:40 | NUR ---
HAND-OFF: Report given to Susan MELÉNDEZ RN.
[2019-11-05 20:00] VITALS: BP 127/73
--- NOTE | 2019-11-05 20:00 | NUR ---
NURSE NOTES: Patient received in bed, IV leaking. Will reinsert new IV access. On o2 via NC at 3LPM. HOB elevated,aspiration precautions d/t today's emesis episode. Will continue plan of care.
--- NOTE | 2019-11-05 21:40 | NUR ---
NURSE NOTES: Patient refused oral medications c/o her stomach hurts. Offered pain medication but patient still refused. Explained risks of refusing medications, patient continued to refuse.
[2019-11-06 00:09] VITALS: BP 128/55
[2019-11-06 04:00] VITALS: BP 128/68
[2019-11-06] MEDS: Lyrica 75mg cap ORAL SCH ×4 (06:00→22:00)
[2019-11-06] MEDS: D5W w/KCl 20mEq 1,000 ML IV SCH ×2 (06:13→13:11)
--- NOTE | 2019-11-06 06:45 | Progress Note ---
DATE: 11/05/2019 SUBJECTIVE: Condition largely unchanged. On low-dose oxygen, had some dark stools and coffee-ground emesis. PHYSICAL EXAMINATION: LUNGS: Bilateral breath sounds. Rhonchi. CARDIAC: Regular rhythm and rate. Normal S1, S2. ABDOMEN: Soft. EXTREMITIES: No edema. LABORATORY DATA: White count 7.9, hemoglobin 11.4. Potassium 4.2, albumin 2.1. IMPRESSION: 1. Possible GI bleed. 2. COVID-19 pneumonia. 3. COPD. 4. Hypertensive heart disease. 5. Paroxysmal atrial ectopy. 6. Severe protein-calorie malnutrition. PLAN: Hold anti-platelet therapy. Check stool occult blood testing. Respiratory hygiene. Serial hemoglobin. Carlos Eduardo Andino M.D. DR: TONY JOB#: [id number] CC:
--- NOTE | 2019-11-06 07:17 | NUR ---
RD ASSESSMENT & RECOMMENDATIONS SEE CARE ACTIVITY FOR COMPLETE ASSESSMENT DAILY ESTIMATED NEEDS: Needs based on Obesity, cardiac/ 88kg abw 20-23 kcals/kg [id number] total kcals 1-1.5 g protein/kg 88-132 g total protein Fluid per MD, on lasix mL/kg . total fluid mLs NUTRITION DIAGNOSIS: * Morbid obesity R/T lifestyle factors, w/ quadriplegia, as evidenced by BMI>60 per guidelines, pt is 320% of [place] Body Weight CURRENT DIET:NPO PO DIET RECOMMENDATIONS: W/ continued N/V, rec CLEAR LIQUID DIET + ENSURE CLEAR TID ADDITIONAL RECOMMENDATIONS: * Calibrated bedscale wt * W/ continued poor PO, rec liberalized REGULAR * W/ PO intake consistently >50%, rec cardiac diet (low Na + Low fat) * Wound care: MVI + Vit C once N/V resolves * Monitor lytes, replete as needed . .
--- NOTE | 2019-11-06 07:28 | NUR ---
HAND-OFF: Report given to Trini Vogel RN.
[2019-11-06 08:00] VITALS: BP 143/74
--- NOTE | 2019-11-06 08:00 | NUR ---
NURSE NOTES: Report received from Glory APARICIO. Nurse reports that patient c/o of abdominal pain and refused to take PO pain medication. Seen patient on rounds, AxOx1-2, not in distress, on O2 at 3lpm via NC, sats 97%. Patient does report some abdominal discomfort, agreed to take the ff medications: Vimpat, Carvedilol and pepcid. PIV noted on left wrist and left forearm infusing IVF as ordered. No noted vomitting, bleeding, or tarry stool. Bed low and locked, siderails up x2, call light within reach, advised to call nurse for assistance. Will continue to monitor.
--- NOTE | 2019-11-06 08:52 | Pulmonology Progress Note ---
Assessment/Plan Assessment/Plan IMPRESSION: Pulmonary infection, asthma, wheezing, history of VRE, COVID positive, stroke. PLAN respiratory care reviewed and overnight flowsheets noted off antibiotics; ID care reviewed DVT prophylaxis taper oxygen dc planning per primary oxygen needs minimal pulmonary colon stable at present await isolation clearance impression, plan, and exam edited and reviewed in detail care discussed with RN Subjective ROS Limited/Unobtainable: Yes Constitutional: Denies: fever, chills Gastrointestinal/Abdominal: Denies: nausea, vomiting, diarrhea Genitourinary: Reports: last menstrual period Musculoskeletal: Denies: pain Allergies: Coded Allergies: CEFEPIME (Unverified Allergy, Unknown, 11/03/17) LEVOFLOXACIN (Unverified Allergy, Unknown, 11/03/17) PENICILLINS (Unverified Allergy, Unknown, 11/03/17) All Systems: reviewed and negative except above Subjective care noted over the weekend comfortable no distress noted on oxygen /confused awaiting dc to SNF Objective Last 24 Hour Vital Signs Date Time Temp Pulse Resp B/P (MAP) Pulse Ox O2 Delivery O2 Flow Rate FiO2 11/06/19 08:00 97.9 103 20 143/74 (97) 97 11/06/19 04:00 97.5 96 24 128/68 (88) 100 11/06/19 00:09 98.4 84 22 128/55 (79) 98 11/05/19 21:00 Nasal Cannula 3.0 11/05/19 20:01 96 Nasal Cannula 3.0 32 11/05/19 20:00 97.9 94 24 127/73 (91) 98 11/05/19 16:00 98.8 92 20 135/80 (98) 97 11/05/19 12:00 97.9 90 20 114/58 (76) 98 11/05/19 09:00 Nasal Cannula 3.0 11/05/19 09:00 101 93/78 Intake and Output 11/05/19 11/06/19 19:00 07:00 Intake Total 675 ml 750 ml Balance 675 ml 750 ml IV Total 675 ml 750 ml # Voids 2 2 # Bowel Movements 3 Objective WDWN NAD clear breath sounds bilaterally without rhonchi or wheeze [id number] without MRG NABS nontender no HSM no CCE nonfocal reviewed and edited General Appearance: no acute distress, other - obese HEENT: mucous membranes moist Abdomen: soft, non tender, other - obese Extremities: no edema Neurologic/Psychiatric: other - sleeping Laboratory Tests 11/05/19 16:30: White Blood Count 7.9, Red Blood Count 3.97L, Hemoglobin 11.4L, Hematocrit 38.0 , Mean Corpuscular Volume 96, Mean Corpuscular Hemoglobin 28.7, Mean Corpuscular Hemoglobin Concent 29.9L, Red Cell Distribution Width 18.8H, Platelet Count 287, Mean Platelet Volume 8.0, Neutrophils (%) (Auto) 62.6, Lymphocytes (%) (Auto) 19.2L, Monocytes (%) (Auto) 15.6H, Eosinophils (%) (Auto ) 0.4, Basophils (%) (Auto) 2.2H, Prothrombin Time 11.1, Prothromb Time International Ratio 1.0, Activated Partial Thromboplast Time 31, Sodium Level 140, Potassium Level 4.2, Chloride Level 100, Carbon Dioxide Level 34H, Anion Gap 6, Blood Urea Nitrogen 7, Creatinine 0.8, Estimat Glomerular Filtration Rate > 60, Glucose Level 108H, Calcium Level 9.9, Total Bilirubin 0.7, Aspartate Amino Transf (AST/SGOT) 26, Alanine Aminotransferase (ALT/SGPT) 24, Alkaline Phosphatase 93, Total Protein 6.6, Albumin 2.1L, Globulin 4.5, Albumin/ Globulin Ratio 0.5L Current Medications Medications (Trade) Dose Ordered Sig/Saira Route PRN Reason Start Time Stop Time Status Last Admin Dose Admin Acetaminophen (Tylenol) 650 mg Q6H PRN ORAL MILD/TEMP 10/25/19 20:30 11/09/19 20:29 11/02/19 00:39 Acetaminophen/ Hydrocodone Bitart ([place] 10/325) 1 tab Q4H PRN ORAL For Pain (4-10) 10/30/19 21:30 11/06/19 21:29 11/01/19 20:49 Ascorbic Acid (Vitamin C) 500 mg EVERY 12 HOURS ORAL 10/25/19 21:00 11/12/19 14:59 11/03/19 09:31 Atorvastatin Calcium (Lipitor) 10 mg BEDTIME ORAL 10/25/19 21:00 01/09/20 20:59 11/02/19 22:19 Carvedilol (Coreg) 12.5 mg EVERY 12 HOURS ORAL 10/25/19 21:00 11/19/19 20:59 11/03/19 21:31 Cinacalcet (Sensipar) 30 mg DAILY ORAL 10/26/19 09:00 01/09/20 08:59 11/03/19 09:31 Dextrose/ Electrolytes 1,000 ml @ 75 mls/hr [id number] IV 10/28/19 23:00 11/27/19 22:59 11/05/19 18:47 Duloxetine HCl (Cymbalta) 60 mg DAILY ORAL 10/26/19 09:00 01/09/20 08:59 11/03/19 09:32 Ferrous Sulfate (Feosol) 325 mg TID ORAL 10/26/19 09:00 01/09/20 08:59 11/03/19 17:05 Folic Acid (Folate) 1 mg DAILY ORAL 10/26/19 09:00 11/10/19 08:59 11/03/19 09:31 Guaifenesin (Mucinex ER) 600 mg EVERY 12 HOURS ORAL 10/25/19 21:00 01/13/20 08:59 11/03/19 09:32 Guaifenesin (Robitussin) 100 mg Q4H PRN ORAL cough 10/25/19 20:30 01/08/20 20:29 Hydralazine HCl (Apresoline) 25 mg Q6H PRN ORAL SBP above 150 and DBP above 90 11/02/19 02:00 01/31/20 01:59 Ipratropium [place] (Atrovent Inh) 1 puffs BID INH 10/26/19 09:00 11/24/19 08:59 11/03/19 18:00 Lacosamide (Vimpat) 100 mg Q12HR ORAL 10/25/19 21:00 01/09/20 08:59 11/03/19 09:32 Lidocaine (Lidoderm 5% PATCH) 3 patch DAILY TDERMAL 10/26/19 09:00 01/09/20 08:59 11/05/19 08:48 Magnesium Hydroxide (Mom) 30 ml DAILY PRN ORAL Constipation 10/26/19 09:00 11/09/19 23:29 Metoclopramide HCl (Reglan) 5 mg Q6H PRN IVP Nausea & Vomiting 11/05/19 12:58 12/05/19 12:57 Ondansetron HCl (Zofran) 4 mg Q4HR PRN IVP Nausea & Vomiting 10/30/19 22:30 11/29/19 22:29 11/05/19 08:59 Pantoprazole (Protonix) 40 mg EVERY 12 HOURS ORAL 10/25/19 21:00 11/10/19 08:59 11/03/19 09:31 Pregabalin (Lyrica) 150 mg Q8HR ORAL 10/25/19 22:00 11/10/19 05:59 11/03/19 13:39 Promethazine HCl/ Codeine (Phenergan with Codeine) 5 ml Q4H PRN ORAL For Cough 10/25/19 20:30 11/09/19 20:29 Darrel Schuster MD Nov 06, 2019 08:52
[2019-11-06] MEDS: Sensipar 30mg Tab ORAL SCH ×4 (09:00→12:33)
[2019-11-06] MEDS: guaiFENesin ER 600mg tab ORAL SCH ×3 (09:00→09:17)
[2019-11-06] MEDS: Ascorbic Acid 500mg tab ORAL SCH ×3 (09:00→09:18)
[2019-11-06] MEDS: Lacosamide 50mg tablet ORAL SCH ×2 (09:02→21:00)
[2019-11-06] MEDS: Carvedilol 12.5mg tab ORAL SCH ×2 (09:02→21:00)
[2019-11-06] MEDS: Ipratropium Bromide Inhaler INH SCH ×2 (09:04→18:18)
--- NOTE | 2019-11-06 09:23 | General Progress Note ---
Assessment/Plan Problem List: (1) COPD with asthma ICD Codes: J44.9 - Chronic obstructive pulmonary disease, unspecified SNOMED: 46235345662715909 (2) Seizure ICD Codes: R56.9 - Unspecified convulsions SNOMED: 40325693 (3) CVA (cerebral vascular accident) ICD Codes: I63.9 - Cerebral infarction, unspecified SNOMED: 034202496 (4) Functional quadriplegia ICD Codes: R53.2 - Functional quadriplegia SNOMED: 529885648610354 (5) COVID-19 ICD Codes: U07.1 - COVID-19 SNOMED: 630998550 Status: stable Assessment/Plan: Continue to monitor for bleeding. Monitor for hematemesis and bright red blood per rectum/melena. IV proton pump inhibitor GI follow-up Endoscopy only if emergent due to positive COVID-19 status Try to avoid narcotics. Monitor ABG. May benefit from BiPAP if CO2 is elevated Discussed with patient's family time for 15 minutes Subjective ROS Limited/Unobtainable: Yes Constitutional: Reports: malaise, weakness HEENT: Reports: no symptoms Cardiovascular: Reports: no symptoms Respiratory: Reports: cough, shortness of breath Gastrointestinal/Abdominal: Reports: black stools, tarry stools, vomiting Genitourinary: Reports: no symptoms Neurologic/Psychiatric: Reports: pre-existing deficit Endocrine: Reports: no symptoms Hematologic/Lymphatic: Reports: anemia Allergies: Coded Allergies: CEFEPIME (Unverified Allergy, Unknown, 11/03/17) LEVOFLOXACIN (Unverified Allergy, Unknown, 11/03/17) PENICILLINS (Unverified Allergy, Unknown, 11/03/17) All Systems: reviewed and negative except above Subjective Test noted with coffee-ground emesis and black tarry stools yesterday. Has had no further episodes since then. Small drop in hemoglobin noted. GI input appreciated. On PPI treatment twice daily. Discussed with family. Concerned about patient's confusion. Denies chest pain shortness of breath. Remains on O2 at 3 L. Discussed with night nurse Objective Last 24 Hour Vital Signs Date Time Temp Pulse Resp B/P (MAP) Pulse Ox O2 Delivery O2 Flow Rate FiO2 11/06/19 09:02 103 143/74 11/06/19 08:00 97.9 103 20 143/74 (97) 97 11/06/19 04:00 97.5 96 24 128/68 (88) 100 11/06/19 00:09 98.4 84 22 128/55 (79) 98 11/05/19 21:00 Nasal Cannula 3.0 11/05/19 20:01 96 Nasal Cannula 3.0 32 11/05/19 20:00 97.9 94 24 127/73 (91) 98 11/05/19 16:00 98.8 92 20 135/80 (98) 97 11/05/19 12:00 97.9 90 20 114/58 (76) 98 Intake and Output 11/05/19 11/06/19 19:00 07:00 Intake Total 675 ml 750 ml Balance 675 ml 750 ml IV Total 675 ml 750 ml # Voids 2 2 # Bowel Movements 3 Laboratory Tests 11/05/19 16:30: White Blood Count 7.9, Red Blood Count 3.97L, Hemoglobin 11.4L, Hematocrit 38.0 , Mean Corpuscular Volume 96, Mean Corpuscular Hemoglobin 28.7, Mean Corpuscular Hemoglobin Concent 29.9L, Red Cell Distribution Width 18.8H, Platelet Count 287, Mean Platelet Volume 8.0, Neutrophils (%) (Auto) 62.6, Lymphocytes (%) (Auto) 19.2L, Monocytes (%) (Auto) 15.6H, Eosinophils (%) (Auto ) 0.4, Basophils (%) (Auto) 2.2H, Prothrombin Time 11.1, Prothromb Time International Ratio 1.0, Activated Partial Thromboplast Time 31, Sodium Level 140, Potassium Level 4.2, Chloride Level 100, Carbon Dioxide Level 34H, Anion Gap 6, Blood Urea Nitrogen 7, Creatinine 0.8, Estimat Glomerular Filtration Rate > 60, Glucose Level 108H, Calcium Level 9.9, Total Bilirubin 0.7, Aspartate Amino Transf (AST/SGOT) 26, Alanine Aminotransferase (ALT/SGPT) 24, Alkaline Phosphatase 93, Total Protein 6.6, Albumin 2.1L, Globulin 4.5, Albumin/ Globulin Ratio 0.5L Height (Feet): 5 Height (Inches): 5.00 Weight (Pounds): 381 Objective General Appearance: WD/WN, alert Neck: supple Cardiovascular: normal rate Respiratory/Chest: chest wall non-tender, lungs clear, normal breath sounds, no respiratory distress Abdomen: normal bowel sounds, non tender, soft, no organomegaly Edema: no edema noted Arm (L), no edema noted Arm (R), no edema noted Leg (L), no edema noted Leg (R), no edema noted Pedal (L), no edema noted Pedal (R), no edema noted Generalized Kenroy Mcgrath MD Nov 06, 2019 09:23
--- NOTE | 2019-11-06 11:27 | Infectious Diseases Prog Note ---
Assessment/Plan Assessment/Plan antibiotics : none A 1. covid 19 pneumonia s/p rx improving positive tests on 3.28.20, 4.3.20, 4.4.20, 4.6.20, 4.13.20, 4.20.20 test negative 4.10.20 2. COPD 3. asthma 4. CVA 5. seizures P 1. continue off antibiotics 2. continue isolation Subjective Constitutional: Denies: fever, chills Respiratory: Denies: shortness of breath, dry cough Gastrointestinal/Abdominal: Denies: nausea, vomiting, diarrhea Musculoskeletal: Denies: pain Allergies: Coded Allergies: CEFEPIME (Unverified Allergy, Unknown, 11/03/17) LEVOFLOXACIN (Unverified Allergy, Unknown, 11/03/17) PENICILLINS (Unverified Allergy, Unknown, 11/03/17) Objective Vital Signs Last 24 Hour Vital Signs Date Time Temp Pulse Resp B/P (MAP) Pulse Ox O2 Delivery O2 Flow Rate FiO2 11/06/19 09:02 103 143/74 11/06/19 09:00 Nasal Cannula 3.0 11/06/19 08:00 97.9 103 20 143/74 (97) 97 11/06/19 04:00 97.5 96 24 128/68 (88) 100 11/06/19 00:09 98.4 84 22 128/55 (79) 98 11/05/19 21:00 Nasal Cannula 3.0 11/05/19 20:01 96 Nasal Cannula 3.0 32 11/05/19 20:00 97.9 94 24 127/73 (91) 98 11/05/19 16:00 98.8 92 20 135/80 (98) 97 11/05/19 12:00 97.9 90 20 114/58 (76) 98 Height (Feet): 5 Height (Inches): 5.00 Weight (Pounds): 381 Laboratory Tests Test 11/05/19 16:30 11/06/19 10:47 White Blood Count 7.9 K/UL (4.8-10.8) Red Blood Count 3.97 M/UL (4.20-5.40) L Hemoglobin 11.4 G/DL (12.0-16.0) L Hematocrit 38.0 % (37.0-47.0) Mean Corpuscular Volume 96 FL (80-99) Mean Corpuscular Hemoglobin 28.7 PG (27.0-31.0) Mean Corpuscular Hemoglobin Concent 29.9 G/DL (32.0-36.0) L Red Cell Distribution Width 18.8 % (11.6-14.8) H Platelet Count 287 K/UL (150-450) Mean Platelet Volume 8.0 FL (6.5-10.1) Neutrophils (%) (Auto) 62.6 % (45.0-75.0) Lymphocytes (%) (Auto) 19.2 % (20.0-45.0) L Monocytes (%) (Auto) 15.6 % (1.0-10.0) H Eosinophils (%) (Auto) 0.4 % (0.0-3.0) Basophils (%) (Auto) 2.2 % (0.0-2.0) H Prothrombin Time 11.1 SEC (9.30-11.50) Prothromb Time International Ratio 1.0 (0.9-1.1) Activated Partial Thromboplast Time 31 SEC (23-33) Sodium Level 140 MMOL/L (136-145) Pending Potassium Level 4.2 MMOL/L (3.5-5.1) Pending Chloride Level 100 MMOL/L (98-107) Pending Carbon Dioxide Level 34 MMOL/L (21-32) H Pending Anion Gap 6 mmol/L (5-15) Blood Urea Nitrogen 7 mg/dL (7-18) Pending Creatinine 0.8 MG/DL (0.55-1.30) Pending Estimat Glomerular Filtration Rate > 60 mL/min (>60) Pending Glucose Level 108 MG/DL (74-106) H Pending Calcium Level 9.9 MG/DL (8.5-10.1) Pending Total Bilirubin 0.7 MG/DL (0.2-1.0) Aspartate Amino Transf (AST/SGOT) 26 U/L (15-37) Alanine Aminotransferase (ALT/SGPT) 24 U/L (12-78) Alkaline Phosphatase 93 U/L (46-116) Total Protein 6.6 G/DL (6.4-8.2) Albumin 2.1 G/DL (3.4-5.0) L Globulin 4.5 g/dL Albumin/Globulin Ratio 0.5 (1.0-2.7) L Magnesium Level Pending Current Medications Medications (Trade) Dose Ordered Sig/Saira Route PRN Reason Start Time Stop Time Status Last Admin Dose Admin Acetaminophen (Tylenol) 650 mg Q6H PRN ORAL MILD/TEMP 10/25/19 20:30 11/09/19 20:29 11/02/19 00:39 Acetaminophen/ Hydrocodone Bitart ([place] 10/325) 1 tab Q4H PRN ORAL For Pain (4-10) 10/30/19 21:30 11/06/19 21:29 11/01/19 20:49 Ascorbic Acid (Vitamin C) 500 mg EVERY 12 HOURS ORAL 10/25/19 21:00 11/12/19 14:59 11/03/19 09:31 Atorvastatin Calcium (Lipitor) 10 mg BEDTIME ORAL 10/25/19 21:00 01/09/20 20:59 11/02/19 22:19 Carvedilol (Coreg) 12.5 mg EVERY 12 HOURS ORAL 10/25/19 21:00 11/19/19 20:59 11/06/19 09:02 Cinacalcet (Sensipar) 30 mg DAILY ORAL 10/26/19 09:00 01/09/20 08:59 11/03/19 09:31 Dextrose/ Electrolytes 1,000 ml @ 75 mls/hr [id number] IV 10/28/19 23:00 11/27/19 22:59 11/05/19 18:47 Duloxetine HCl (Cymbalta) 60 mg DAILY ORAL 10/26/19 09:00 01/09/20 08:59 11/03/19 09:32 Ferrous Sulfate (Feosol) 325 mg TID ORAL 10/26/19 09:00 01/09/20 08:59 11/03/19 17:05 Folic Acid (Folate) 1 mg DAILY ORAL 10/26/19 09:00 11/10/19 08:59 11/03/19 09:31 Guaifenesin (Mucinex ER) 600 mg EVERY 12 HOURS ORAL 10/25/19 21:00 01/13/20 08:59 11/03/19 09:32 Guaifenesin (Robitussin) 100 mg Q4H PRN ORAL cough 10/25/19 20:30 01/08/20 20:29 Hydralazine HCl (Apresoline) 25 mg Q6H PRN ORAL SBP above 150 and DBP above 90 11/02/19 02:00 01/31/20 01:59 Ipratropium [place] (Atrovent Inh) 1 puffs BID INH 10/26/19 09:00 11/24/19 08:59 11/06/19 09:04 Lacosamide (Vimpat) 100 mg Q12HR ORAL 10/25/19 21:00 01/09/20 08:59 11/06/19 09:02 Lidocaine (Lidoderm 5% PATCH) 3 patch DAILY TDERMAL 10/26/19 09:00 01/09/20 08:59 11/06/19 09:04 Magnesium Hydroxide (Mom) 30 ml DAILY PRN ORAL Constipation 10/26/19 09:00 11/09/19 23:29 Metoclopramide HCl (Reglan) 5 mg Q6H PRN IVP Nausea & Vomiting 11/05/19 12:58 12/05/19 12:57 Ondansetron HCl (Zofran) 4 mg Q4HR PRN IVP Nausea & Vomiting 10/30/19 22:30 11/29/19 22:29 11/05/19 08:59 Pantoprazole (Protonix) 40 mg EVERY 12 HOURS ORAL 10/25/19 21:00 11/10/19 08:59 11/06/19 09:02 Pregabalin (Lyrica) 150 mg Q8HR ORAL 10/25/19 22:00 11/10/19 05:59 11/03/19 13:39 Promethazine HCl/ Codeine (Phenergan with Codeine) 5 ml Q4H PRN ORAL For Cough 10/25/19 20:30 11/09/19 20:29 Huma Serna MD Nov 06, 2019 11:27
[2019-11-06 12:00] VITALS: BP 145/70
[2019-11-06 12:03] LABS: ANION GAP 8 mmol/L (5-15); BLOOD UREA NITROGEN 6 mg/dL (7-18); CALCIUM 9.8 MG/DL (8.5-10.1); CARBON DIOXIDE 35 MMOL/L (21-32); CHLORIDE 100 MMOL/L (98-107); CREATININE 0.8 MG/DL (0.55-1.30); POTASSIUM 4.7 MMOL/L (3.5-5.1); SODIUM 143 MMOL/L (136-145)
--- NOTE | 2019-11-06 13:30 | NUR ---
NURSE NOTES: Spoke with next of kin, Belinda and gave updates regarding patient's vitals. Assisted patient with telephone in room so patient could speak with her.
[2019-11-06 13:31] LABS: BASOPHILS % (AUTO) 1.4 % (0.0-2.0); EOSINOPHILS % (AUTO) 0.5 % (0.0-3.0); HEMATOCRIT 36.7 % (37.0-47.0); HEMOGLOBIN 11.6 G/DL (12.0-16.0); LYMPHOCYTES % (AUTO) 19.3 % (20.0-45.0); MEAN CORPUSCULAR VOLUME 90 FL (80-99); MONOCYTES % (AUTO) 14.9 % (1.0-10.0); NEUTROPHILS % (AUTO) 63.9 % (45.0-75.0); PLATELET COUNT 266 K/UL (150-450); RED BLOOD COUNT 4.09 M/UL (4.20-5.40); RED CELL DISTRIBUTION WIDTH 17.9 % (11.6-14.8); WHITE BLOOD COUNT 7.9 K/UL (4.8-10.8)
--- NOTE | 2019-11-06 13:31 | NUR ---
NURSE NOTES: Patient refused Lyrica and Iron tablet. Educated on risks and benefits, patient still refused. Asked for PO Tylenol for pain instead.
--- NOTE | 2019-11-06 13:36 | General Progress Note ---
Assessment/Plan Status: stable Assessment/Plan: 1. COPD. 2. Asthma. 3. Breast cancer, status post right mastectomy. 4. History of IVC filter placement for DVT. 5. Morbid obesity. 6. Peripheral vascular disease. 7. Peripheral neuropathy. 8. History of left knee fracture requiring repair. 9. GIB stable H&H ppi start diet fu labs Subjective ROS Limited/Unobtainable: No Allergies: Coded Allergies: CEFEPIME (Unverified Allergy, Unknown, 11/03/17) LEVOFLOXACIN (Unverified Allergy, Unknown, 11/03/17) PENICILLINS (Unverified Allergy, Unknown, 11/03/17) Objective Last 24 Hour Vital Signs Date Time Temp Pulse Resp B/P (MAP) Pulse Ox O2 Delivery O2 Flow Rate FiO2 11/06/19 12:00 98.2 98 20 145/70 (95) 97 11/06/19 09:02 103 143/74 11/06/19 09:00 Nasal Cannula 3.0 11/06/19 08:00 97.9 103 20 143/74 (97) 97 11/06/19 04:00 97.5 96 24 128/68 (88) 100 11/06/19 00:09 98.4 84 22 128/55 (79) 98 11/05/19 21:00 Nasal Cannula 3.0 11/05/19 20:01 96 Nasal Cannula 3.0 32 11/05/19 20:00 97.9 94 24 127/73 (91) 98 11/05/19 16:00 98.8 92 20 135/80 (98) 97 Intake and Output 11/05/19 11/06/19 19:00 07:00 Intake Total 675 ml 750 ml Balance 675 ml 750 ml IV Total 675 ml 750 ml # Voids 2 2 # Bowel Movements 3 Laboratory Tests 11/05/19 16:30: White Blood Count 7.9, Red Blood Count 3.97L, Hemoglobin 11.4L, Hematocrit 38.0 , Mean Corpuscular Volume 96, Mean Corpuscular Hemoglobin 28.7, Mean Corpuscular Hemoglobin Concent 29.9L, Red Cell Distribution Width 18.8H, Platelet Count 287, Mean Platelet Volume 8.0, Neutrophils (%) (Auto) 62.6, Lymphocytes (%) (Auto) 19.2L, Monocytes (%) (Auto) 15.6H, Eosinophils (%) (Auto ) 0.4, Basophils (%) (Auto) 2.2H, Prothrombin Time 11.1, Prothromb Time International Ratio 1.0, Activated Partial Thromboplast Time 31, Sodium Level 140, Potassium Level 4.2, Chloride Level 100, Carbon Dioxide Level 34H, Anion Gap 6, Blood Urea Nitrogen 7, Creatinine 0.8, Estimat Glomerular Filtration Rate > 60, Glucose Level 108H, Calcium Level 9.9, Total Bilirubin 0.7, Aspartate Amino Transf (AST/SGOT) 26, Alanine Aminotransferase (ALT/SGPT) 24, Alkaline Phosphatase 93, Total Protein 6.6, Albumin 2.1L, Globulin 4.5, Albumin/ Globulin Ratio 0.5L 11/06/19 10:47: Sodium Level 143, Potassium Level 4.7, Chloride Level 100, Carbon Dioxide Level 35H, Anion Gap 8, Blood Urea Nitrogen 6L, Creatinine 0.8, Estimat Glomerular Filtration Rate > 60, Glucose Level 130H, Calcium Level 9.8, Magnesium Level 2.1 11/06/19 12:10: White Blood Count 7.9, Red Blood Count 4.09L, Hemoglobin 11.6L, Hematocrit 36.7L , Mean Corpuscular Volume 90, Mean Corpuscular Hemoglobin 28.4, Mean Corpuscular Hemoglobin Concent 31.6L, Red Cell Distribution Width 17.9H, Platelet Count 266, Mean Platelet Volume 6.4L, Neutrophils (%) (Auto) 63.9, Lymphocytes (%) (Auto) 19.3L, Monocytes (%) (Auto) 14.9H, Eosinophils (%) (Auto ) 0.5, Basophils (%) (Auto) 1.4 11/06/19 12:15: Arterial Blood pH 7.414, Arterial Blood Partial Pressure CO2 61.7*H, Arterial Blood Partial Pressure O2 33.3*L, Arterial Blood HCO3 38.6H, Arterial Blood Oxygen Saturation 66.0*L, Arterial Blood Base Excess 11.7*H, Omero Test Positive Height (Feet): 5 Height (Inches): 5.00 Weight (Pounds): 381 General Appearance: no apparent distress EENT: normal ENT inspection Neck: supple Cardiovascular: normal rate Respiratory/Chest: decreased breath sounds Abdomen: normal bowel sounds, non tender, soft Extremities: non-tender Vosoghi,Hussein MD Nov 06, 2019 13:36
--- NOTE | 2019-11-06 13:42 | NUR ---
NURSE NOTES: ABG results relayed to Dr. Mcgrath. Awaiting response.
[2019-11-06 16:00] VITALS: BP 147/75
--- NOTE | 2019-11-06 16:46 | NUR ---
CASE MANAGEMENT:REVIEW SI;COVID-19 INFECTION POSITIVE 11/02/2019. COPD. 98.2 103 24 145/70 97% 3L NC CO2 35 BG 130 IS;GUAIFENESIN PO Q12 HRS VIT C PO Q12 HRS ATROVENT INH BID IVF D5 @ 75 ML/HR ASA PO QD COREG PO Q12 HRS PROTONIX PO Q12 HRS MUCINEX PO Q12 HRS MED SURG STATUS DCP;FROM [facility]; CONT ISOLATION
--- NOTE | 2019-11-06 19:42 | NUR ---
HAND-OFF: Report given to Kim APARICIO.
[2019-11-06 20:00] VITALS: BP 129/89
--- NOTE | 2019-11-06 23:23 | NUR ---
Dr. Harvey phoned. Implement previous written order to taper 02 to 2L/NC maintain 02 92%. Began now.
[2019-11-07] VITALS: BP 118/57
--- NOTE | 2019-11-07 04:00 | Progress Note ---
DATE: 11/06/2019 CARDIOLOGY PROGRESS NOTE SUBJECTIVE: Episodes of tachycardia, no respiratory distress. Occasional cough, occasional confusion. No signs of bleeding. PHYSICAL EXAMINATION: VITAL SIGNS: Blood pressure 147/75, pulse 109, respiratory rate 20, oxygen saturation 97% on 3 liters. LUNGS: Clear. CARDIAC: Regular. Normal S1, S2. ABDOMEN: Soft. EXTREMITIES: No edema. LABORATORY DATA: Check stool occult blood is pending. ABG 7.41, 62, 33 on venous gas. White count 7.9, hemoglobin 11.6. Potassium 4.7, magnesium 2.1. IMPRESSION: 1. Possible GI bleeding. 2. COPD. 3. COVID-19 pneumonia, recovering. 4. Hypoxia, improving. 5. Hypercarbia. 6. Acute on chronic respiratory acidosis. 7. Hypertensive heart disease. 8. Metabolic encephalopathy. PLAN: 1. Staff advised again to taper down oxygen. 2. Acid-base parameters will be monitored. 3. Stool occult blood is pending and will be reviewed. 4. Anti-platelet therapy has been discontinued in the interim. 5. We will follow closely. Carlos Eduardo Andino M.D. DR: Juan C JOB#: [id number] CC:
[2019-11-07] MEDS: Lyrica 75mg cap ORAL SCH ×3 (06:00→22:30)
--- NOTE | 2019-11-07 07:30 | NUR ---
NURSE NOTES: Report received from Anila, Seen patient on rounds, A/A/Ox2 able to follow commands. on O2 at 2L via NC, to titrate sats >91%. IV access noted on left wrist and left forearm infusing IVF as ordered. HOB elevated. Bed low and locked, siderails up x3, call light within reach, bed brakes and locked @ all times. Will continue to monitor.
[2019-11-07 08:00] VITALS: BP 120/60
[2019-11-07] MEDS: Ipratropium Bromide Inhaler INH SCH ×2 (09:00→16:52)
[2019-11-07] MEDS: guaiFENesin ER 600mg tab ORAL SCH ×2 (09:30→21:58)
[2019-11-07] MEDS: Sensipar 30mg Tab ORAL SCH (09:30)
[2019-11-07] MEDS: Ascorbic Acid 500mg tab ORAL SCH ×2 (09:30→21:58)
[2019-11-07] MEDS: Carvedilol 12.5mg tab ORAL SCH ×2 (09:32→21:57)
[2019-11-07] MEDS: Lacosamide 50mg tablet ORAL SCH ×2 (09:32→21:58)
[2019-11-07] MEDS: D5W w/KCl 20mEq 1,000 ML IV SCH ×2 (09:38→23:00)
[2019-11-07 11:30] LABS: BASOPHILS % (AUTO) 1.3 % (0.0-2.0); EOSINOPHILS % (AUTO) 0.5 % (0.0-3.0); HEMATOCRIT 38.4 % (37.0-47.0); HEMOGLOBIN 12.4 G/DL (12.0-16.0); LYMPHOCYTES % (AUTO) 23.5 % (20.0-45.0); MEAN CORPUSCULAR VOLUME 90 FL (80-99); MONOCYTES % (AUTO) 12.9 % (1.0-10.0); NEUTROPHILS % (AUTO) 61.8 % (45.0-75.0); PLATELET COUNT 295 K/UL (150-450); RED BLOOD COUNT 4.25 M/UL (4.20-5.40); RED CELL DISTRIBUTION WIDTH 17.4 % (11.6-14.8); WHITE BLOOD COUNT 8.7 K/UL (4.8-10.8)
--- NOTE | 2019-11-07 11:44 | General Progress Note ---
Assessment/Plan Problem List: (1) COPD with asthma ICD Codes: J44.9 - Chronic obstructive pulmonary disease, unspecified SNOMED: 33112891663368251 (2) Seizure ICD Codes: R56.9 - Unspecified convulsions SNOMED: 98674788 (3) CVA (cerebral vascular accident) ICD Codes: I63.9 - Cerebral infarction, unspecified SNOMED: 577892443 (4) Functional quadriplegia ICD Codes: R53.2 - Functional quadriplegia SNOMED: 223784156414165 (5) COVID-19 ICD Codes: U07.1 - COVID-19 SNOMED: 918886330 Status: stable Assessment/Plan: Continue to monitor for bleeding. Monitor for hematemesis and bright red blood per rectum/melena. IV proton pump inhibitor GI follow-up Endoscopy only if emergent due to positive COVID-19 status Try to avoid narcotics. Monitor ABG. May benefit from BiPAP if CO2 is elevated covid 19 neg x 1. will repeat x1 Discussed with patient's family time for 15 minutes Subjective ROS Limited/Unobtainable: No Constitutional: Reports: malaise, weakness HEENT: Reports: no symptoms Cardiovascular: Reports: no symptoms Respiratory: Reports: no symptoms Gastrointestinal/Abdominal: Reports: no symptoms Genitourinary: Reports: no symptoms Neurologic/Psychiatric: Reports: depressed, emotional problems Endocrine: Reports: no symptoms Hematologic/Lymphatic: Reports: no symptoms Allergies: Coded Allergies: CEFEPIME (Unverified Allergy, Unknown, 11/03/17) LEVOFLOXACIN (Unverified Allergy, Unknown, 11/03/17) PENICILLINS (Unverified Allergy, Unknown, 11/03/17) All Systems: reviewed and negative except above Subjective No overnight events. No hematemesis bright red blood per rectum or melena. Hemoglobin is trending up today. O2 weaned down to 2 L. COVID-19 PCR on 11/04 was negative. Per family intermittently confused. Denies chest pain or shortness of breath. Does have chronic pain. Objective Last 24 Hour Vital Signs Date Time Temp Pulse Resp B/P (MAP) Pulse Ox O2 Delivery O2 Flow Rate FiO2 11/07/19 09:32 93 120/60 11/07/19 08:00 97.8 93 19 120/60 (80) 95 11/07/19 00:00 97.5 94 18 118/57 (77) 94 11/06/19 21:00 95 129/89 11/06/19 21:00 Nasal Cannula 3.0 11/06/19 20:00 97.7 95 20 129/89 (102) 92 11/06/19 16:00 98.4 109 20 147/75 (99) 97 11/06/19 14:53 Nasal Cannula 3.0 11/06/19 12:00 98.2 98 20 145/70 (95) 97 Intake and Output 11/06/19 11/07/19 19:00 07:00 Intake Total 525 ml Balance 525 ml IV Total 525 ml # Voids 1 3 # Bowel Movements 1 1 Laboratory Tests 11/06/19 12:10: White Blood Count 7.9, Red Blood Count 4.09L, Hemoglobin 11.6L, Hematocrit 36.7L , Mean Corpuscular Volume 90, Mean Corpuscular Hemoglobin 28.4, Mean Corpuscular Hemoglobin Concent 31.6L, Red Cell Distribution Width 17.9H, Platelet Count 266, Mean Platelet Volume 6.4L, Neutrophils (%) (Auto) 63.9, Lymphocytes (%) (Auto) 19.3L, Monocytes (%) (Auto) 14.9H, Eosinophils (%) (Auto ) 0.5, Basophils (%) (Auto) 1.4 11/06/19 12:15: Arterial Blood pH 7.414, Arterial Blood Partial Pressure CO2 61.7*H, Arterial Blood Partial Pressure O2 33.3*L, Arterial Blood HCO3 38.6H, Arterial Blood Oxygen Saturation 66.0*L, Arterial Blood Base Excess 11.7*H, Omero Test Positive 11/06/19 14:40: Stool Occult Blood Negative 11/07/19 10:10: White Blood Count 8.7, Red Blood Count 4.25, Hemoglobin 12.4, Hematocrit 38.4, Mean Corpuscular Volume 90, Mean Corpuscular Hemoglobin 29.1, Mean Corpuscular Hemoglobin Concent 32.2, Red Cell Distribution Width 17.4H, Platelet Count 295, Mean Platelet Volume 5.7L, Neutrophils (%) (Auto) 61.8, Lymphocytes (%) (Auto) 23.5, Monocytes (%) (Auto) 12.9H, Eosinophils (%) (Auto) 0.5, Basophils (%) ( Auto) 1.3 Height (Feet): 5 Height (Inches): 5.00 Weight (Pounds): 381 Objective General Appearance: WD/WN, alert Neck: supple Cardiovascular: normal rate Respiratory/Chest: chest wall non-tender, lungs clear, normal breath sounds, no respiratory distress Abdomen: normal bowel sounds, non tender, soft, no organomegaly Edema: no edema noted Arm (L), no edema noted Arm (R), no edema noted Leg (L), no edema noted Leg (R), no edema noted Pedal (L), no edema noted Pedal (R), no edema noted Generalized Kenroy Mcgrath MD Nov 07, 2019 11:44
[2019-11-07 11:57] VITALS: BP 124/68
--- NOTE | 2019-11-07 13:32 | GI Progress Note ---
Assessment/Plan Problems: (1) Pneumonia ICD Codes: J18.9 - Pneumonia, unspecified organism SNOMED: 999563568 (2) COVID-19 ICD Codes: U07.1 - COVID-19 SNOMED: 762164171 (3) Functional quadriplegia ICD Codes: R53.2 - Functional quadriplegia SNOMED: 098817196667248 Status: unchanged Status Narrative Discussed with Dr. Stacy. Assessment/Plan 1. COPD. 2. Asthma. 3. Breast cancer, status post right mastectomy. 4. History of IVC filter placement for DVT. 5. Morbid obesity. 6. Peripheral vascular disease. 7. Peripheral neuropathy. 8. History of left knee fracture requiring repair. 9. GIB COVID-19 positive, now negative x1 stable H&H ppi start diet fu labs The patient was seen and examined at bedside and all new and available data was reviewed in the patients chart. I agree with the above findings, impression and plan. (Patient seen earlier today. Signature stamp does not reflect patient encounter time.). - Hussein Stacy MD Subjective Gastrointestinal/Abdominal: Reports: no symptoms Objective Last 24 Hour Vital Signs Date Time Temp Pulse Resp B/P (MAP) Pulse Ox O2 Delivery O2 Flow Rate FiO2 11/07/19 11:57 98.0 96 19 124/68 (86) 97 11/07/19 09:32 93 120/60 11/07/19 08:00 97.8 93 19 120/60 (80) 95 11/07/19 00:00 97.5 94 18 118/57 (77) 94 11/06/19 21:00 95 129/89 11/06/19 21:00 Nasal Cannula 3.0 11/06/19 20:00 97.7 95 20 129/89 (102) 92 11/06/19 16:00 98.4 109 20 147/75 (99) 97 11/06/19 14:53 Nasal Cannula 3.0 Intake and Output 11/06/19 11/07/19 19:00 07:00 Intake Total 525 ml Balance 525 ml IV Total 525 ml # Voids 1 3 # Bowel Movements 1 1 Laboratory Tests Test 11/06/19 14:40 11/07/19 10:10 Stool Occult Blood Negative (NEGATIVE) White Blood Count 8.7 K/UL (4.8-10.8) Red Blood Count 4.25 M/UL (4.20-5.40) Hemoglobin 12.4 G/DL (12.0-16.0) Hematocrit 38.4 % (37.0-47.0) Mean Corpuscular Volume 90 FL (80-99) Mean Corpuscular Hemoglobin 29.1 PG (27.0-31.0) Mean Corpuscular Hemoglobin Concent 32.2 G/DL (32.0-36.0) Red Cell Distribution Width 17.4 % (11.6-14.8) H Platelet Count 295 K/UL (150-450) Mean Platelet Volume 5.7 FL (6.5-10.1) L Neutrophils (%) (Auto) 61.8 % (45.0-75.0) Lymphocytes (%) (Auto) 23.5 % (20.0-45.0) Monocytes (%) (Auto) 12.9 % (1.0-10.0) H Eosinophils (%) (Auto) 0.5 % (0.0-3.0) Basophils (%) (Auto) 1.3 % (0.0-2.0) Height (Feet): 5 Height (Inches): 5.00 Weight (Pounds): 381 General Appearance: WD/WN, no apparent distress, alert Cardiovascular: normal rate Respiratory/Chest: normal breath sounds, no respiratory distress Abdominal Exam: normal bowel sounds, non tender, soft Extremities: non-tender Adrian Willams [employer] Nov 07, 2019 13:32
--- NOTE | 2019-11-07 15:25 | NUR ---
NURSE NOTES: patient sacral is resurfaced. calazimed applied. will cont to monitor.
[2019-11-07 16:00] VITALS: BP 130/84
--- NOTE | 2019-11-07 16:52 | NUR ---
NURSE NOTES: patient appeared depressed and does not have an appetite for any of her meal. I have explained and encouraged. patient spoke with the son on the phone. shown any sadness, crying. will cont to monitor.
--- NOTE | 2019-11-07 17:19 | Pulmonology Progress Note ---
Assessment/Plan Assessment/Plan IMPRESSION: Pulmonary infection, asthma, wheezing, history of VRE, COVID positive, stroke. PLAN respiratory care reviewed and overnight flowsheets noted off antibiotics; ID care reviewed DVT prophylaxis taper oxygen dc planning per primary oxygen needs minimal pulmonary colon stable at present await isolation clearance impression, plan, and exam edited and reviewed in detail care discussed with RN Subjective ROS Limited/Unobtainable: No Constitutional: Denies: fever, chills Gastrointestinal/Abdominal: Denies: nausea, vomiting, diarrhea Genitourinary: Reports: last menstrual period Musculoskeletal: Denies: pain Allergies: Coded Allergies: CEFEPIME (Unverified Allergy, Unknown, 11/03/17) LEVOFLOXACIN (Unverified Allergy, Unknown, 11/03/17) PENICILLINS (Unverified Allergy, Unknown, 11/03/17) All Systems: reviewed and negative except above Subjective care noted over the weekend comfortable no distress noted on oxygen /confused awaiting dc to SNF Objective Last 24 Hour Vital Signs Date Time Temp Pulse Resp B/P (MAP) Pulse Ox O2 Delivery O2 Flow Rate FiO2 11/07/19 16:00 98.6 88 19 130/84 (99) 98 11/07/19 11:57 98.0 96 19 124/68 (86) 97 11/07/19 09:48 95 Nasal Cannula 3.0 32 11/07/19 09:32 93 120/60 11/07/19 08:00 97.8 93 19 120/60 (80) 95 11/07/19 00:00 97.5 94 18 118/57 (77) 94 11/06/19 21:00 95 129/89 11/06/19 21:00 Nasal Cannula 3.0 11/06/19 20:00 97.7 95 20 129/89 (102) 92 Intake and Output 11/06/19 11/07/19 19:00 07:00 Intake Total 525 ml Balance 525 ml IV Total 525 ml # Voids 1 3 # Bowel Movements 1 1 Objective WDWN NAD clear breath sounds bilaterally without rhonchi or wheeze [id number] without MRG NABS nontender no HSM no CCE nonfocal reviewed and edited General Appearance: no acute distress, other - obese HEENT: mucous membranes moist Abdomen: soft, non tender, other - obese Extremities: no edema Neurologic/Psychiatric: other - sleeping Microbiology Date/Time Source Procedure Growth Status 11/05/19 16:00 Nasopharynx Coronavirus COVID-19 PCR (ABDIAZIZ) - Final Complete Laboratory Tests 11/07/19 10:10: White Blood Count 8.7, Red Blood Count 4.25, Hemoglobin 12.4, Hematocrit 38.4, Mean Corpuscular Volume 90, Mean Corpuscular Hemoglobin 29.1, Mean Corpuscular Hemoglobin Concent 32.2, Red Cell Distribution Width 17.4H, Platelet Count 295, Mean Platelet Volume 5.7L, Neutrophils (%) (Auto) 61.8, Lymphocytes (%) (Auto) 23.5, Monocytes (%) (Auto) 12.9H, Eosinophils (%) (Auto) 0.5, Basophils (%) ( Auto) 1.3 Current Medications Medications (Trade) Dose Ordered Sig/Saira Route PRN Reason Start Time Stop Time Status Last Admin Dose Admin Acetaminophen (Tylenol) 650 mg Q6H PRN ORAL MILD/TEMP 10/25/19 20:30 11/09/19 20:29 11/06/19 13:45 Ascorbic Acid (Vitamin C) 500 mg EVERY 12 HOURS ORAL 10/25/19 21:00 11/12/19 14:59 11/07/19 09:30 Atorvastatin Calcium (Lipitor) 10 mg BEDTIME ORAL 10/25/19 21:00 01/09/20 20:59 11/06/19 21:00 Carvedilol (Coreg) 12.5 mg EVERY 12 HOURS ORAL 10/25/19 21:00 11/19/19 20:59 11/07/19 09:32 Cinacalcet (Sensipar) 30 mg DAILY ORAL 10/26/19 09:00 01/09/20 08:59 11/07/19 09:30 Dextrose/ Electrolytes 1,000 ml @ 75 mls/hr [id number] IV 10/28/19 23:00 11/27/19 22:59 11/07/19 09:38 Duloxetine HCl (Cymbalta) 60 mg DAILY ORAL 10/26/19 09:00 01/09/20 08:59 11/07/19 09:31 Ferrous Sulfate (Feosol) 325 mg TID ORAL 10/26/19 09:00 01/09/20 08:59 11/07/19 09:30 Folic Acid (Folate) 1 mg DAILY ORAL 10/26/19 09:00 11/10/19 08:59 11/07/19 09:31 Guaifenesin (Mucinex ER) 600 mg EVERY 12 HOURS ORAL 10/25/19 21:00 01/13/20 08:59 11/07/19 09:30 Guaifenesin (Robitussin) 100 mg Q4H PRN ORAL cough 10/25/19 20:30 01/08/20 20:29 Hydralazine HCl (Apresoline) 25 mg Q6H PRN ORAL SBP above 150 and DBP above 90 11/02/19 02:00 01/31/20 01:59 Ipratropium [place] (Atrovent Inh) 1 puffs BID INH 10/26/19 09:00 11/24/19 08:59 11/06/19 18:18 Lacosamide (Vimpat) 100 mg Q12HR ORAL 10/25/19 21:00 01/09/20 08:59 11/07/19 09:32 Lidocaine (Lidoderm 5% PATCH) 3 patch DAILY TDERMAL 10/26/19 09:00 01/09/20 08:59 11/07/19 09:32 Magnesium Hydroxide (Mom) 30 ml DAILY PRN ORAL Constipation 10/26/19 09:00 11/09/19 23:29 Metoclopramide HCl (Reglan) 5 mg Q6H PRN IVP Nausea & Vomiting 11/05/19 12:58 12/05/19 12:57 Ondansetron HCl (Zofran) 4 mg Q4HR PRN IVP Nausea & Vomiting 10/30/19 22:30 11/29/19 22:29 11/05/19 08:59 Pantoprazole (Protonix) 40 mg EVERY 12 HOURS ORAL 10/25/19 21:00 11/10/19 08:59 11/07/19 09:30 Pregabalin (Lyrica) 150 mg Q8HR ORAL 10/25/19 22:00 11/10/19 05:59 11/06/19 22:00 Promethazine HCl/ Codeine (Phenergan with Codeine) 5 ml Q4H PRN ORAL For Cough 10/25/19 20:30 11/09/19 20:29 Darrel Schuster MD Nov 07, 2019 17:18
--- NOTE | 2019-11-07 19:11 | NUR ---
HAND-OFF: Report given to Aissatou.
[2019-11-07 20:00] VITALS: BP 129/67
--- NOTE | 2019-11-07 20:00 | NUR ---
NURSE NOTES:RECEIVED PATIENT LYING IN BED, AWAKE, ORIENTED X2, OBESE. IV DISLODGED, NOTED IN PATIENT HAND, VERY CONFUSED, REALITY ORIENTATION PROVIDED DURING ASSESSMENT, VERY FORGETFUL, REQUIRE REPETITIVE INTERVENTIONS. DENIES PAIN. NO SIGNS AND SYMPTOMS OF ACUTE CARDIO RESPIRATORY DISTRESS/SHORTNESS OF BREATH, DENIES CHEST PAIN. ABDOMEN LARGE, NON TENDER, BOWEL SOUNDS AUDIBLE, DENIES N/V. ASSISTED WITH PM CARE, TOLERATED WELL. SIDE RAILS UP X3 FOR SAFETY, CALL LIGHT WITHIN REACH, BED IN LOWEST POSITION FOR SAFETY. BED ALARM ACTIVATED. FREQUENT ROUNDING FOR SAFETY/NEEDS. CONTINUE WITH CURRENT PLAN OF CARE. NAD.
[2019-11-08] VITALS (7 sets, daily range): BP systolic 106–132; BP diastolic 74–100
[2019-11-08 06:15] LABS: BASOPHILS % (AUTO) 1.4 % (0.0-2.0); EOSINOPHILS % (AUTO) 1.9 % (0.0-3.0); HEMATOCRIT 35.5 % (37.0-47.0); HEMOGLOBIN 11.5 G/DL (12.0-16.0); LYMPHOCYTES % (AUTO) 27.9 % (20.0-45.0); MEAN CORPUSCULAR VOLUME 89 FL (80-99); MONOCYTES % (AUTO) 13.5 % (1.0-10.0); NEUTROPHILS % (AUTO) 55.4 % (45.0-75.0); PLATELET COUNT 301 K/UL (150-450); RED BLOOD COUNT 3.99 M/UL (4.20-5.40); WHITE BLOOD COUNT 8.2 K/UL (4.8-10.8)
--- NOTE | 2019-11-08 06:23 | NUR ---
NURSE NOTES: RESTED WELL, NO SIGNIFICANT CHANGE OF CONDITION NOTED THROUGHOUT THE NIGHT. SAFETY MAINTAINED. NAD.
[2019-11-08 07:00] LABS: ANION GAP 5 mmol/L (5-15); BLOOD UREA NITROGEN 11 mg/dL (7-18); CALCIUM 10.1 MG/DL (8.5-10.1); CARBON DIOXIDE 35 MMOL/L (21-32); CHLORIDE 98 MMOL/L (98-107); CREATININE 1.1 MG/DL (0.55-1.30); POTASSIUM 3.9 MMOL/L (3.5-5.1); SODIUM 138 MMOL/L (136-145)
[2019-11-08] MEDS: Lyrica 75mg cap ORAL SCH ×3 (07:24→22:25)
[2019-11-08] MEDS: D5W w/KCl 20mEq 1,000 ML IV SCH ×2 (07:25→20:14)
--- NOTE | 2019-11-08 07:40 | NUR ---
NURSE NOTES: RECEIVED PATIENT LYING IN BED, AWAKE, ORIENTED X3, MORE INTERACTIVE TODAY. CONFUSED @ TIMES. REALITY ORIENTATION PROVIDED DURING ASSESSMENT, REQUIRE REORIENTATION. DENIES PAIN. NO SIGNS AND SYMPTOMS OF ACUTE CARDIO-RESPIRATORY DISTRESS/SHORTNESS OF BREATH, DENIES CHEST PAIN. ABDOMEN LARGE, BOWEL SOUNDS AUDIBLE, DENIES N/V. ASSISTED WITH PM CARE, TOLERATED WELL. SIDERAILS UP X3 FOR SAFETY, CALL LIGHT WITHIN REACH, BED IN LOWEST POSITION FOR SAFETY. BED ALARM ACTIVATED. FREQUENT ROUNDING FOR SAFETY/NEEDS. CONTINUE WITH CURRENT PLAN OF CARE.
[2019-11-08] MEDS: Ipratropium Bromide Inhaler INH SCH ×2 (09:00→17:13)
[2019-11-08] MEDS: Carvedilol 12.5mg tab ORAL SCH ×2 (09:00→20:09)
[2019-11-08] MEDS: Sensipar 30mg Tab ORAL SCH (09:17)
[2019-11-08] MEDS: Ascorbic Acid 500mg tab ORAL SCH ×2 (09:17→20:10)
[2019-11-08] MEDS: Lacosamide 50mg tablet ORAL SCH ×2 (09:17→20:10)
[2019-11-08] MEDS: guaiFENesin ER 600mg tab ORAL SCH ×2 (09:17→20:10)
--- NOTE | 2019-11-08 10:05 | General Progress Note ---
Assessment/Plan Problem List: (1) COPD with asthma ICD Codes: J44.9 - Chronic obstructive pulmonary disease, unspecified SNOMED: 25904670430856022 (2) Seizure ICD Codes: R56.9 - Unspecified convulsions SNOMED: 00936682 (3) CVA (cerebral vascular accident) ICD Codes: I63.9 - Cerebral infarction, unspecified SNOMED: 053162290 (4) Functional quadriplegia ICD Codes: R53.2 - Functional quadriplegia SNOMED: 377968065913252 (5) COVID-19 ICD Codes: U07.1 - COVID-19 SNOMED: 572118890 Status: unchanged Assessment/Plan: Continue to monitor for bleeding. Monitor for hematemesis and bright red blood per rectum/melena. IV proton pump inhibitor GI follow-up Endoscopy only if emergent due to positive COVID-19 status Try to avoid narcotics. Monitor ABG. May benefit from BiPAP if CO2 is elevated covid 19 neg x 1. will repeat x1 Discussed with patient's family time for 15 minutes Subjective ROS Limited/Unobtainable: No Constitutional: Reports: malaise, weakness HEENT: Reports: no symptoms Cardiovascular: Reports: no symptoms Respiratory: Reports: no symptoms Gastrointestinal/Abdominal: Reports: tarry stools Genitourinary: Reports: no symptoms Neurologic/Psychiatric: Reports: no symptoms Endocrine: Reports: no symptoms Hematologic/Lymphatic: Reports: no symptoms Allergies: Coded Allergies: CEFEPIME (Unverified Allergy, Unknown, 11/03/17) LEVOFLOXACIN (Unverified Allergy, Unknown, 11/03/17) PENICILLINS (Unverified Allergy, Unknown, 11/03/17) All Systems: reviewed and negative except above Subjective No overnight events. No hematemesis bright red blood per rectum or melena. Hemoglobin is stable. O2 weaned down to 2 L. COVID-19 PCR on 11/04 was negative. Per family intermittently confused. Denies chest pain or shortness of breath. Does have chronic pain. Objective Last 24 Hour Vital Signs Date Time Temp Pulse Resp B/P (MAP) Pulse Ox O2 Delivery O2 Flow Rate FiO2 11/08/19 09:00 80 110/80 11/08/19 08:00 98.7 80 20 110/80 (90) 98 11/08/19 07:54 98.0 11/08/19 04:00 98.0 77 20 106/75 (85) 96 11/08/19 00:00 98.0 102 19 132/76 (94) 94 11/07/19 21:57 85 134/76 11/07/19 21:00 Nasal Cannula 3.0 11/07/19 20:00 98.6 104 19 129/67 (87) 95 11/07/19 16:00 98.6 88 19 130/84 (99) 98 11/07/19 11:57 98.0 96 19 124/68 (86) 97 Intake and Output 11/07/19 11/08/19 19:00 07:00 Intake Total 1375 ml 1425 ml Balance 1375 ml 1425 ml Intake Oral 1000 ml 600 ml IV Total 375 ml 825 ml # Voids 6 5 # Bowel Movements 1 1 Laboratory Tests 11/07/19 10:10: White Blood Count 8.7, Red Blood Count 4.25, Hemoglobin 12.4, Hematocrit 38.4, Mean Corpuscular Volume 90, Mean Corpuscular Hemoglobin 29.1, Mean Corpuscular Hemoglobin Concent 32.2, Red Cell Distribution Width 17.4H, Platelet Count 295, Mean Platelet Volume 5.7L, Neutrophils (%) (Auto) 61.8, Lymphocytes (%) (Auto) 23.5, Monocytes (%) (Auto) 12.9H, Eosinophils (%) (Auto) 0.5, Basophils (%) ( Auto) 1.3 11/08/19 05:00: White Blood Count 8.2, Red Blood Count 3.99L, Hemoglobin 11.5L, Hematocrit 35.5L , Mean Corpuscular Volume 89, Mean Corpuscular Hemoglobin 28.9, Mean Corpuscular Hemoglobin Concent 32.5, Red Cell Distribution Width 18.0H, Platelet Count 301, Mean Platelet Volume 5.9L, Neutrophils (%) (Auto) 55.4, Lymphocytes (%) (Auto) 27.9, Monocytes (%) (Auto) 13.5H, Eosinophils (%) (Auto) 1.9, Basophils (%) (Auto) 1.4, Sodium Level 138, Potassium Level 3.9, Chloride Level 98, Carbon Dioxide Level 35H, Anion Gap 5, Blood Urea Nitrogen 11, Creatinine 1.1, Estimat Glomerular Filtration Rate 59.8, Glucose Level 103, Calcium Level 10.1 Height (Feet): 5 Height (Inches): 5.00 Weight (Pounds): 381 Objective General Appearance: WD/WN, alert Neck: supple Cardiovascular: normal rate Respiratory/Chest: chest wall non-tender, lungs clear, normal breath sounds, no respiratory distress Abdomen: normal bowel sounds, non tender, soft, no organomegaly Edema: no edema noted Arm (L), no edema noted Arm (R), no edema noted Leg (L), no edema noted Leg (R), no edema noted Pedal (L), no edema noted Pedal (R), no edema noted Generalized Kenroy Mcgrath MD Nov 08, 2019 10:05
--- NOTE | 2019-11-08 10:25 | Pulmonology Progress Note ---
Assessment/Plan Assessment/Plan IMPRESSION: Pulmonary infection, asthma, wheezing, history of VRE, COVID positive, stroke. chronic respiratory failure; hypercapnia PLAN respiratory care reviewed and overnight flowsheets noted off antibiotics; ID care reviewed DVT prophylaxis taper oxygen and minimize ABG in am consider trial of Diamox dc planning per primary oxygen needs minimal await isolation clearance impression, plan, and exam edited and reviewed in detail care discussed with RN Subjective ROS Limited/Unobtainable: Yes Constitutional: Denies: fever, chills Gastrointestinal/Abdominal: Denies: nausea, vomiting, diarrhea Genitourinary: Reports: last menstrual period Musculoskeletal: Denies: pain Allergies: Coded Allergies: CEFEPIME (Unverified Allergy, Unknown, 11/03/17) LEVOFLOXACIN (Unverified Allergy, Unknown, 11/03/17) PENICILLINS (Unverified Allergy, Unknown, 11/03/17) All Systems: reviewed and negative except above Subjective care noted over the weekend comfortable no distress noted on oxygen /confused/ chronic CO2 retention awaiting dc to SNF Objective Last 24 Hour Vital Signs Date Time Temp Pulse Resp B/P (MAP) Pulse Ox O2 Delivery O2 Flow Rate FiO2 11/08/19 09:00 80 110/80 11/08/19 08:00 98.7 80 20 110/80 (90) 98 11/08/19 07:54 98.0 11/08/19 04:00 98.0 77 20 106/75 (85) 96 11/08/19 00:00 98.0 102 19 132/76 (94) 94 11/07/19 21:57 85 134/76 11/07/19 21:00 Nasal Cannula 3.0 11/07/19 20:00 98.6 104 19 129/67 (87) 95 11/07/19 16:00 98.6 88 19 130/84 (99) 98 11/07/19 11:57 98.0 96 19 124/68 (86) 97 Intake and Output 11/07/19 11/08/19 19:00 07:00 Intake Total 1375 ml 1425 ml Balance 1375 ml 1425 ml Intake Oral 1000 ml 600 ml IV Total 375 ml 825 ml # Voids 6 5 # Bowel Movements 1 1 Objective WDWN NAD clear breath sounds bilaterally without rhonchi or wheeze [id number] without MRG NABS nontender no HSM no CCE nonfocal reviewed and edited General Appearance: no acute distress, other - obese HEENT: mucous membranes moist Abdomen: soft, non tender, other - obese Extremities: no edema Neurologic/Psychiatric: other - sleeping Microbiology Date/Time Source Procedure Growth Status 11/05/19 16:00 Nasopharynx Coronavirus COVID-19 PCR (ABDIAZIZ) - Final Complete Laboratory Tests 11/08/19 05:00: White Blood Count 8.2, Red Blood Count 3.99L, Hemoglobin 11.5L, Hematocrit 35.5L , Mean Corpuscular Volume 89, Mean Corpuscular Hemoglobin 28.9, Mean Corpuscular Hemoglobin Concent 32.5, Red Cell Distribution Width 18.0H, Platelet Count 301, Mean Platelet Volume 5.9L, Neutrophils (%) (Auto) 55.4, Lymphocytes (%) (Auto) 27.9, Monocytes (%) (Auto) 13.5H, Eosinophils (%) (Auto) 1.9, Basophils (%) (Auto) 1.4, Sodium Level 138, Potassium Level 3.9, Chloride Level 98, Carbon Dioxide Level 35H, Anion Gap 5, Blood Urea Nitrogen 11, Creatinine 1.1, Estimat Glomerular Filtration Rate 59.8, Glucose Level 103, Calcium Level 10.1 Current Medications Medications (Trade) Dose Ordered Sig/Saira Route PRN Reason Start Time Stop Time Status Last Admin Dose Admin Acetaminophen (Tylenol) 650 mg Q6H PRN ORAL MILD/TEMP 10/25/19 20:30 11/09/19 20:29 11/06/19 13:45 Ascorbic Acid (Vitamin C) 500 mg EVERY 12 HOURS ORAL 10/25/19 21:00 11/12/19 14:59 11/08/19 09:17 Atorvastatin Calcium (Lipitor) 10 mg BEDTIME ORAL 10/25/19 21:00 01/09/20 20:59 11/07/19 21:58 Carvedilol (Coreg) 12.5 mg EVERY 12 HOURS ORAL 10/25/19 21:00 11/19/19 20:59 11/07/19 21:57 Cinacalcet (Sensipar) 30 mg DAILY ORAL 10/26/19 09:00 01/09/20 08:59 11/08/19 09:17 Dextrose/ Electrolytes 1,000 ml @ 75 mls/hr [id number] IV 10/28/19 23:00 11/27/19 22:59 11/08/19 07:25 Duloxetine HCl (Cymbalta) 60 mg DAILY ORAL 10/26/19 09:00 01/09/20 08:59 11/07/19 09:31 Ferrous Sulfate (Feosol) 325 mg TID ORAL 10/26/19 09:00 01/09/20 08:59 11/08/19 09:17 Folic Acid (Folate) 1 mg DAILY ORAL 10/26/19 09:00 11/10/19 08:59 11/08/19 09:17 Guaifenesin (Mucinex ER) 600 mg EVERY 12 HOURS ORAL 10/25/19 21:00 01/13/20 08:59 11/08/19 09:17 Guaifenesin (Robitussin) 100 mg Q4H PRN ORAL cough 10/25/19 20:30 01/08/20 20:29 Hydralazine HCl (Apresoline) 25 mg Q6H PRN ORAL SBP above 150 and DBP above 90 11/02/19 02:00 01/31/20 01:59 Ipratropium [place] (Atrovent Inh) 1 puffs BID INH 10/26/19 09:00 11/24/19 08:59 11/08/19 09:00 Lacosamide (Vimpat) 100 mg Q12HR ORAL 10/25/19 21:00 01/09/20 08:59 11/08/19 09:17 Lidocaine (Lidoderm 5% PATCH) 3 patch DAILY TDERMAL 10/26/19 09:00 01/09/20 08:59 11/08/19 09:18 Magnesium Hydroxide (Mom) 30 ml DAILY PRN ORAL Constipation 10/26/19 09:00 11/09/19 23:29 Metoclopramide HCl (Reglan) 5 mg Q6H PRN IVP Nausea & Vomiting 11/05/19 12:58 12/05/19 12:57 Ondansetron HCl (Zofran) 4 mg Q4HR PRN IVP Nausea & Vomiting 10/30/19 22:30 11/29/19 22:29 11/05/19 08:59 Pantoprazole (Protonix) 40 mg EVERY 12 HOURS ORAL 10/25/19 21:00 11/10/19 08:59 11/08/19 09:17 Pregabalin (Lyrica) 150 mg Q8HR ORAL 10/25/19 22:00 11/10/19 05:59 11/08/19 07:24 Promethazine HCl/ Codeine (Phenergan with Codeine) 5 ml Q4H PRN ORAL For Cough 10/25/19 20:30 11/09/19 20:29 Darrel Schuster MD Nov 08, 2019 10:24
--- NOTE | 2019-11-08 12:53 | GI Progress Note ---
Assessment/Plan Problems: (1) Pneumonia ICD Codes: J18.9 - Pneumonia, unspecified organism SNOMED: 483985240 (2) COVID-19 ICD Codes: U07.1 - COVID-19 SNOMED: 650314065 (3) Functional quadriplegia ICD Codes: R53.2 - Functional quadriplegia SNOMED: 928472109861080 Status: unchanged Status Narrative Discussed with Dr. Stacy. Assessment/Plan 1. COPD. 2. Asthma. 3. Breast cancer, status post right mastectomy. 4. History of IVC filter placement for DVT. 5. Morbid obesity. 6. Peripheral vascular disease. 7. Peripheral neuropathy. 8. History of left knee fracture requiring repair. 9. GIB COVID-19 positive, now negative x1 stable H&H OB stool negative x1 ppi start diet fu labs The patient was seen and examined at bedside and all new and available data was reviewed in the patients chart. I agree with the above findings, impression and plan. (Patient seen earlier today. Signature stamp does not reflect patient encounter time.). - Hussein Stacy MD Subjective Subjective limited Objective Last 24 Hour Vital Signs Date Time Temp Pulse Resp B/P (MAP) Pulse Ox O2 Delivery O2 Flow Rate FiO2 11/08/19 11:59 98.8 84 20 115/75 (88) 98 11/08/19 09:00 Nasal Cannula 3.0 11/08/19 09:00 80 110/80 11/08/19 08:00 98.7 80 20 110/80 (90) 98 11/08/19 07:54 98.0 11/08/19 04:00 98.0 77 20 106/75 (85) 96 11/08/19 00:00 98.0 102 19 132/76 (94) 94 11/07/19 21:57 85 134/76 11/07/19 21:00 Nasal Cannula 3.0 11/07/19 20:00 98.6 104 19 129/67 (87) 95 11/07/19 16:00 98.6 88 19 130/84 (99) 98 Intake and Output 11/07/19 11/08/19 19:00 07:00 Intake Total 1375 ml 1425 ml Balance 1375 ml 1425 ml Intake Oral 1000 ml 600 ml IV Total 375 ml 825 ml # Voids 6 5 # Bowel Movements 1 1 Laboratory Tests Test 11/08/19 05:00 White Blood Count 8.2 K/UL (4.8-10.8) Red Blood Count 3.99 M/UL (4.20-5.40) L Hemoglobin 11.5 G/DL (12.0-16.0) L Hematocrit 35.5 % (37.0-47.0) L Mean Corpuscular Volume 89 FL (80-99) Mean Corpuscular Hemoglobin 28.9 PG (27.0-31.0) Mean Corpuscular Hemoglobin Concent 32.5 G/DL (32.0-36.0) Red Cell Distribution Width 18.0 % (11.6-14.8) H Platelet Count 301 K/UL (150-450) Mean Platelet Volume 5.9 FL (6.5-10.1) L Neutrophils (%) (Auto) 55.4 % (45.0-75.0) Lymphocytes (%) (Auto) 27.9 % (20.0-45.0) Monocytes (%) (Auto) 13.5 % (1.0-10.0) H Eosinophils (%) (Auto) 1.9 % (0.0-3.0) Basophils (%) (Auto) 1.4 % (0.0-2.0) Sodium Level 138 MMOL/L (136-145) Potassium Level 3.9 MMOL/L (3.5-5.1) Chloride Level 98 MMOL/L (98-107) Carbon Dioxide Level 35 MMOL/L (21-32) H Anion Gap 5 mmol/L (5-15) Blood Urea Nitrogen 11 mg/dL (7-18) Creatinine 1.1 MG/DL (0.55-1.30) Estimat Glomerular Filtration Rate 59.8 mL/min (>60) Glucose Level 103 MG/DL (74-106) Calcium Level 10.1 MG/DL (8.5-10.1) Height (Feet): 5 Height (Inches): 5.00 Weight (Pounds): 381 General Appearance: WD/WN, no apparent distress, alert Cardiovascular: normal rate Respiratory/Chest: normal breath sounds, no respiratory distress Abdominal Exam: normal bowel sounds, non tender, soft Extremities: non-tender Adrian Willams [employer] Nov 08, 2019 12:53
--- NOTE | 2019-11-08 13:34 | Infectious Diseases Prog Note ---
Assessment/Plan Assessment/Plan A 1. COVID 19 pneumonia - Tests are positive on 10/09, 10/15 , 10/16 , 10/18, 10/25, 11/01 - Test is negative on 10/22, 11/04 2. COPD 3. asthma 4. CVA 5. seizures 6. Hypokalemia, corrected P 1. repeat COVID19 test 2. continue isolation Subjective ROS Limited/Unobtainable: Yes Allergies: Coded Allergies: CEFEPIME (Unverified Allergy, Unknown, 11/03/17) LEVOFLOXACIN (Unverified Allergy, Unknown, 11/03/17) PENICILLINS (Unverified Allergy, Unknown, 11/03/17) Objective Vital Signs Last 24 Hour Vital Signs Date Time Temp Pulse Resp B/P (MAP) Pulse Ox O2 Delivery O2 Flow Rate FiO2 11/08/19 11:59 98.8 84 20 115/75 (88) 98 11/08/19 09:00 Nasal Cannula 3.0 11/08/19 09:00 80 110/80 11/08/19 08:00 98.7 80 20 110/80 (90) 98 11/08/19 07:54 98.0 11/08/19 04:00 98.0 77 20 106/75 (85) 96 11/08/19 00:00 98.0 102 19 132/76 (94) 94 11/07/19 21:57 85 134/76 11/07/19 21:00 Nasal Cannula 3.0 11/07/19 20:00 98.6 104 19 129/67 (87) 95 11/07/19 16:00 98.6 88 19 130/84 (99) 98 Height (Feet): 5 Height (Inches): 5.00 Weight (Pounds): 381 General Appearance: no acute distress HEENT: mucous membranes moist Cardiovascular: normal rate Abdomen: soft, non tender Microbiology Date/Time Source Procedure Growth Status 11/05/19 16:00 Nasopharynx Coronavirus COVID-19 PCR (ABDIAZIZ) - Final Complete Laboratory Tests Test 11/08/19 05:00 White Blood Count 8.2 K/UL (4.8-10.8) Red Blood Count 3.99 M/UL (4.20-5.40) L Hemoglobin 11.5 G/DL (12.0-16.0) L Hematocrit 35.5 % (37.0-47.0) L Mean Corpuscular Volume 89 FL (80-99) Mean Corpuscular Hemoglobin 28.9 PG (27.0-31.0) Mean Corpuscular Hemoglobin Concent 32.5 G/DL (32.0-36.0) Red Cell Distribution Width 18.0 % (11.6-14.8) H Platelet Count 301 K/UL (150-450) Mean Platelet Volume 5.9 FL (6.5-10.1) L Neutrophils (%) (Auto) 55.4 % (45.0-75.0) Lymphocytes (%) (Auto) 27.9 % (20.0-45.0) Monocytes (%) (Auto) 13.5 % (1.0-10.0) H Eosinophils (%) (Auto) 1.9 % (0.0-3.0) Basophils (%) (Auto) 1.4 % (0.0-2.0) Sodium Level 138 MMOL/L (136-145) Potassium Level 3.9 MMOL/L (3.5-5.1) Chloride Level 98 MMOL/L (98-107) Carbon Dioxide Level 35 MMOL/L (21-32) H Anion Gap 5 mmol/L (5-15) Blood Urea Nitrogen 11 mg/dL (7-18) Creatinine 1.1 MG/DL (0.55-1.30) Estimat Glomerular Filtration Rate 59.8 mL/min (>60) Glucose Level 103 MG/DL (74-106) Calcium Level 10.1 MG/DL (8.5-10.1) Current Medications Medications (Trade) Dose Ordered Sig/Saira Route PRN Reason Start Time Stop Time Status Last Admin Dose Admin Acetaminophen (Tylenol) 650 mg Q6H PRN ORAL MILD/TEMP 10/25/19 20:30 11/09/19 20:29 11/06/19 13:45 Ascorbic Acid (Vitamin C) 500 mg EVERY 12 HOURS ORAL 10/25/19 21:00 11/12/19 14:59 11/08/19 09:17 Atorvastatin Calcium (Lipitor) 10 mg BEDTIME ORAL 10/25/19 21:00 01/09/20 20:59 11/07/19 21:58 Carvedilol (Coreg) 12.5 mg EVERY 12 HOURS ORAL 10/25/19 21:00 11/19/19 20:59 11/07/19 21:57 Cinacalcet (Sensipar) 30 mg DAILY ORAL 10/26/19 09:00 01/09/20 08:59 11/08/19 09:17 Dextrose/ Electrolytes 1,000 ml @ 75 mls/hr [id number] IV 10/28/19 23:00 11/27/19 22:59 11/08/19 07:25 Duloxetine HCl (Cymbalta) 60 mg DAILY ORAL 10/26/19 09:00 01/09/20 08:59 11/07/19 09:31 Ferrous Sulfate (Feosol) 325 mg TID ORAL 10/26/19 09:00 01/09/20 08:59 11/08/19 09:17 Folic Acid (Folate) 1 mg DAILY ORAL 10/26/19 09:00 11/10/19 08:59 11/08/19 09:17 Guaifenesin (Mucinex ER) 600 mg EVERY 12 HOURS ORAL 10/25/19 21:00 01/13/20 08:59 11/08/19 09:17 Guaifenesin (Robitussin) 100 mg Q4H PRN ORAL cough 10/25/19 20:30 01/08/20 20:29 Hydralazine HCl (Apresoline) 25 mg Q6H PRN ORAL SBP above 150 and DBP above 90 11/02/19 02:00 01/31/20 01:59 Ipratropium [employer] (Atrovent Inh) 1 puffs BID INH 10/26/19 09:00 11/24/19 08:59 11/08/19 09:00 Lacosamide (Vimpat) 100 mg Q12HR ORAL 10/25/19 21:00 01/09/20 08:59 11/08/19 09:17 Lidocaine (Lidoderm 5% PATCH) 3 patch DAILY TDERMAL 10/26/19 09:00 01/09/20 08:59 11/08/19 09:18 Magnesium Hydroxide (Mom) 30 ml DAILY PRN ORAL Constipation 10/26/19 09:00 11/09/19 23:29 Metoclopramide HCl (Reglan) 5 mg Q6H PRN IVP Nausea & Vomiting 11/05/19 12:58 12/05/19 12:57 Ondansetron HCl (Zofran) 4 mg Q4HR PRN IVP Nausea & Vomiting 10/30/19 22:30 11/29/19 22:29 11/05/19 08:59 Pantoprazole (Protonix) 40 mg EVERY 12 HOURS ORAL 10/25/19 21:00 11/10/19 08:59 11/08/19 09:17 Pregabalin (Lyrica) 150 mg Q8HR ORAL 10/25/19 22:00 11/10/19 05:59 11/08/19 07:24 Promethazine HCl/ Codeine (Phenergan with Codeine) 5 ml Q4H PRN ORAL For Cough 10/25/19 20:30 11/09/19 20:29 Chris Arroyo MD Nov 08, 2019 13:34
--- NOTE | 2019-11-08 19:02 | NUR ---
HAND-OFF: Report given to Aissatou.
--- NOTE | 2019-11-08 19:42 | NUR ---
NURSE NOTES: RECEIVED PATIENT LYING IN BED, AWAKE, ALERT/ORIENTED X2, VERBALLY RESPONSIVE, ABLE TO VERBALIZE NEEDS, NO SIGNS AND SYMPTOMS OF ACUTE CARDIO RESPIRATORY DISTRESS/SHORTNESS OF BREATH, DENIES CHEST PAIN, BILATERAL LOWER EXTREMITIES ELEVATED ON PILLOW WITH HEELS FLOATING, TOLERATING WELL. ABDOMEN OBESE, NON TENDER, AUDIBLE BOWEL SOUNDS, NO REPORT OF N/V/D. REPOSITIONED FOR COMFORT/PRESSURE RELIEF. SIDE RAILS UP X3/BED IN LOWEST POSITION FOR SAFETY, FREQUENT ROUNDING FOR SAFETY/NEEDS. BED ALARM ACTIVATED FOR SAFETY. CONTINUE ON CURRENT PLAN OF CARE. NAD.
--- NOTE | 2019-11-08 22:45 | Progress Note ---
DATE: 11/07/2019 CARDIOLOGY PROGRESS NOTE SUBJECTIVE: Condition largely unchanged, now down to 2 liters of oxygen by nasal cannula. COVID-19 swab x1 is negative. PHYSICAL EXAMINATION: VITAL SIGNS: Blood pressure 120/60, heart rate 93, respiratory rate 19, no fevers. LUNGS: Few rhonchi. No wheezes. CARDIAC: Regular. Normal S1 and S2 with no new murmur. ABDOMEN: Soft. EXTREMITIES: No edema. IMPRESSION: 1. COVID-19 pneumonia. 2. COPD. 3. Chronic respiratory acidosis. 4. Hypertensive heart disease. 5. Paroxysmal atrial ectopy. 6. Hypoxia improved. PLAN: 1. cardiovascular regimen. 2. Repeat COVID-19 swab prior to discharge. Carlos Eduardo Andino M.D. DR: Juan C JOB#: [id number] CC:
--- NOTE | 2019-11-08 22:59 | Progress Note ---
DATE: 11/08/2019 CARDIOLOGY PROGRESS NOTE SUBJECTIVE: Patient has not had any signs of bleeding. Oxygen saturation on 2 liters remained quite adequate. PHYSICAL EXAMINATION: LUNGS: Bilateral breath sounds. Few rhonchi. CARDIAC: Regular rhythm and rate. Normal S1, S2. ABDOMEN: Soft. EXTREMITIES: No edema. IMPRESSION: Improved. PLAN: 1. We will reinforce avoiding high oxygen delivery in this patient due to potential for CO2 retention. 2. Maintain current cardiovascular regimen. 3. Discharge plan once COVID-19 swabs are negative x2. Carlos Eduardo Andino M.D. DR: EDU JOB#: [id number] CC:
[2019-11-09] VITALS: BP_SYST 118; BP_SYST 148; BP_DIAS 94; BP_DIAS 98
[2019-11-09 04:00] VITALS: BP_SYST 121; BP_SYST 141; BP_DIAS 87; BP_DIAS 91
[2019-11-09 04:45] LABS: BASOPHILS % (AUTO) 2.6 % (0.0-2.0); EOSINOPHILS % (AUTO) 2.4 % (0.0-3.0); HEMATOCRIT 36.5 % (37.0-47.0); HEMOGLOBIN 11.8 G/DL (12.0-16.0); LYMPHOCYTES % (AUTO) 27.4 % (20.0-45.0); MEAN CORPUSCULAR VOLUME 89 FL (80-99); MONOCYTES % (AUTO) 12.4 % (1.0-10.0); NEUTROPHILS % (AUTO) 55.3 % (45.0-75.0); PLATELET COUNT 321 K/UL (150-450); RED BLOOD COUNT 4.12 M/UL (4.20-5.40); RED CELL DISTRIBUTION WIDTH 17.8 % (11.6-14.8); WHITE BLOOD COUNT 8.3 K/UL (4.8-10.8)
[2019-11-09 04:51] LABS: ANION GAP 3 mmol/L (5-15); BLOOD UREA NITROGEN 12 mg/dL (7-18); CARBON DIOXIDE 36 MMOL/L (21-32); CHLORIDE 99 MMOL/L (98-107); CREATININE 1.2 MG/DL (0.55-1.30); POTASSIUM 4.3 MMOL/L (3.5-5.1); SODIUM 138 MMOL/L (136-145)
[2019-11-09] MEDS: Lyrica 75mg cap ORAL SCH ×2 (06:44→13:21)
--- NOTE | 2019-11-09 07:30 | NUR ---
NURSE NOTES: RECEIVED PATIENT LYING IN BED, AWAKE, ALERT AND ORIENTED X3, VERBALLY RESPONSIVE AND FOLLOW COMMANDS. FORGETFUL @ TIMES. REALITY ORIENTATION PROVIDED REQUIRE REORIENTATION. DENIES PAIN. KEEP HOB ELEVATED. ON O2 2L VIA NC. NO SIGNS AND SYMPTOMS OF ACUTE CARDIO-RESPIRATORY DISTRESS/SHORTNESS OF BREATH, DENIES CHEST PAIN. ABDOMEN LARGE, BOWEL SOUNDS AUDIBLE, SIDERAILS UP X3 FOR SAFETY, CALL LIGHT WITHIN REACH, BED IN LOWEST POSITION FOR SAFETY. BED ALARM ACTIVATED. FREQUENT ROUNDING FOR SAFETY/NEEDS. CONTINUE WITH CURRENT PLAN OF CARE.
[2019-11-09 08:00] VITALS: BP 124/78
--- NOTE | 2019-11-09 09:02 | General Progress Note ---
Assessment/Plan Status: unchanged Assessment/Plan: 1. COPD. 2. Asthma. 3. Breast cancer, status post right mastectomy. 4. History of IVC filter placement for DVT. 5. Morbid obesity. 6. Peripheral vascular disease. 7. Peripheral neuropathy. 8. History of left knee fracture requiring repair. 9. GIB stable H&H ppi on diet fu labs recent labs and notes reviewed Subjective ROS Limited/Unobtainable: No Allergies: Coded Allergies: CEFEPIME (Unverified Allergy, Unknown, 11/03/17) LEVOFLOXACIN (Unverified Allergy, Unknown, 11/03/17) PENICILLINS (Unverified Allergy, Unknown, 11/03/17) Objective Last 24 Hour Vital Signs Date Time Temp Pulse Resp B/P (MAP) Pulse Ox O2 Delivery O2 Flow Rate FiO2 11/09/19 07:14 99.0 11/09/19 04:00 98.9 88 20 121/87 (98) 94 11/09/19 00:00 98.9 95 19 118/98 (105) 94 11/08/19 21:00 Nasal Cannula 2.0 11/08/19 20:44 96 Nasal Cannula 3.0 32 11/08/19 20:30 121/89 (100) 11/08/19 20:09 76 134/78 11/08/19 20:00 99.0 100 19 108/100 (103) 96 11/08/19 16:00 98.7 80 20 122/74 (90) 98 11/08/19 11:59 98.8 84 20 115/75 (88) 98 Intake and Output 11/08/19 11/09/19 19:00 07:00 Intake Total 1880 ml 120 ml Balance 1880 ml 120 ml Intake Oral 980 ml 120 ml IV Total 900 ml # Voids 6 2 # Bowel Movements 1 1 Laboratory Tests 11/09/19 04:00: White Blood Count 8.3, Red Blood Count 4.12L, Hemoglobin 11.8L, Hematocrit 36.5L , Mean Corpuscular Volume 89, Mean Corpuscular Hemoglobin 28.8, Mean Corpuscular Hemoglobin Concent 32.4, Red Cell Distribution Width 17.8H, Platelet Count 321, Mean Platelet Volume 5.7L, Neutrophils (%) (Auto) 55.3, Lymphocytes (%) (Auto) 27.4, Monocytes (%) (Auto) 12.4H, Eosinophils (%) (Auto) 2.4, Basophils (%) (Auto) 2.6H, Sodium Level 138, Potassium Level 4.3, Chloride Level 99, Carbon Dioxide Level 36H, Anion Gap 3L, Blood Urea Nitrogen 12, Creatinine 1.2, Estimat Glomerular Filtration Rate 53.9, Glucose Level 111H, Calcium Level 10.0 Height (Feet): 5 Height (Inches): 5.00 Weight (Pounds): 381 General Appearance: no apparent distress EENT: normal ENT inspection Neck: supple Cardiovascular: normal rate Respiratory/Chest: decreased breath sounds Abdomen: normal bowel sounds, non tender, soft Extremities: non-tender Hussein Stacy MD Nov 09, 2019 09:02
[2019-11-09] MEDS: Ascorbic Acid 500mg tab ORAL SCH (09:03)
[2019-11-09] MEDS: Carvedilol 12.5mg tab ORAL SCH (09:04)
[2019-11-09] MEDS: Lacosamide 50mg tablet ORAL SCH (09:04)
[2019-11-09] MEDS: guaiFENesin ER 600mg tab ORAL SCH (09:04)
[2019-11-09] MEDS: Ipratropium Bromide Inhaler INH SCH (09:05)
--- NOTE | 2019-11-09 09:05 | General Progress Note ---
Assessment/Plan Problem List: (1) COPD with asthma ICD Codes: J44.9 - Chronic obstructive pulmonary disease, unspecified SNOMED: 10242781511298619 (2) Seizure ICD Codes: R56.9 - Unspecified convulsions SNOMED: 75210595 (3) CVA (cerebral vascular accident) ICD Codes: I63.9 - Cerebral infarction, unspecified SNOMED: 564002730 (4) Functional quadriplegia ICD Codes: R53.2 - Functional quadriplegia SNOMED: 803052424651399 (5) COVID-19 ICD Codes: U07.1 - COVID-19 SNOMED: 439175304 Status: stable, progressing, unchanged Assessment/Plan: Continue to monitor for bleeding. Monitor for hematemesis and bright red blood per rectum/melena. PPI GI follow-up Endoscopy only if emergent due to positive COVID-19 status Try to avoid narcotics. dc phen codeine covid 19 neg x 1. will repeat x1 Discussed with patient's family time for 15 minutes Subjective ROS Limited/Unobtainable: No Constitutional: Reports: malaise, weakness HEENT: Reports: no symptoms Cardiovascular: Reports: no symptoms Respiratory: Reports: no symptoms Gastrointestinal/Abdominal: Reports: poor appetite Genitourinary: Reports: no symptoms Neurologic/Psychiatric: Reports: anxiety, depressed Endocrine: Reports: no symptoms Hematologic/Lymphatic: Reports: no symptoms Allergies: Coded Allergies: CEFEPIME (Unverified Allergy, Unknown, 11/03/17) LEVOFLOXACIN (Unverified Allergy, Unknown, 11/03/17) PENICILLINS (Unverified Allergy, Unknown, 11/03/17) All Systems: reviewed and negative except above Subjective No overnight events. No hematemesis bright red blood per rectum or melena. Hemoglobin is stable. O2 weaned down to 2 L. COVID-19 PCR on 11/04 was negative. less confused. no fever or chills. poor appetite. Objective Last 24 Hour Vital Signs Date Time Temp Pulse Resp B/P (MAP) Pulse Ox O2 Delivery O2 Flow Rate FiO2 11/09/19 07:14 99.0 11/09/19 04:00 98.9 88 20 121/87 (98) 94 11/09/19 00:00 98.9 95 19 118/98 (105) 94 11/08/19 21:00 Nasal Cannula 2.0 11/08/19 20:44 96 Nasal Cannula 3.0 32 11/08/19 20:30 121/89 (100) 11/08/19 20:09 76 134/78 11/08/19 20:00 99.0 100 19 108/100 (103) 96 11/08/19 16:00 98.7 80 20 122/74 (90) 98 11/08/19 11:59 98.8 84 20 115/75 (88) 98 Intake and Output 11/08/19 11/09/19 19:00 07:00 Intake Total 1880 ml 120 ml Balance 1880 ml 120 ml Intake Oral 980 ml 120 ml IV Total 900 ml # Voids 6 2 # Bowel Movements 1 1 Laboratory Tests 11/09/19 04:00: White Blood Count 8.3, Red Blood Count 4.12L, Hemoglobin 11.8L, Hematocrit 36.5L , Mean Corpuscular Volume 89, Mean Corpuscular Hemoglobin 28.8, Mean Corpuscular Hemoglobin Concent 32.4, Red Cell Distribution Width 17.8H, Platelet Count 321, Mean Platelet Volume 5.7L, Neutrophils (%) (Auto) 55.3, Lymphocytes (%) (Auto) 27.4, Monocytes (%) (Auto) 12.4H, Eosinophils (%) (Auto) 2.4, Basophils (%) (Auto) 2.6H, Sodium Level 138, Potassium Level 4.3, Chloride Level 99, Carbon Dioxide Level 36H, Anion Gap 3L, Blood Urea Nitrogen 12, Creatinine 1.2, Estimat Glomerular Filtration Rate 53.9, Glucose Level 111H, Calcium Level 10.0 Height (Feet): 5 Height (Inches): 5.00 Weight (Pounds): 381 Objective General Appearance: WD/WN, alert Neck: supple Cardiovascular: normal rate Respiratory/Chest: chest wall non-tender, lungs clear, normal breath sounds, no respiratory distress Abdomen: normal bowel sounds, non tender, soft, no organomegaly Edema: no edema noted Arm (L), no edema noted Arm (R), no edema noted Leg (L), no edema noted Leg (R), no edema noted Pedal (L), no edema noted Pedal (R), no edema noted Generalized Kenroy Mcgrath MD Nov 09, 2019 09:05
--- NOTE | 2019-11-09 10:17 | NUR ---
NURSE NOTES: INFORMED DR GARRISON FOR THE ABG RESULT TODAY. AWAITING FOR A CALLBACK. Addendum: 11/09/19 at 1025 by JOSEPHINE DUPREE LVN NO NEW ORDER OBTAINED.
--- NOTE | 2019-11-09 10:43 | NUR ---
NURSE NOTES: LEFT VOICEMESSAGE TO DR GALICIA RE: COVID RESULT. AWAITING FOR A CALLBACK. Addendum: 11/09/19 at 1103 by JOSEPHINE DUPREE LVN DR GALICIA MADE AWARE OF THE NEGATIVE RESULT AND STATED THAT IS OKAY FOR PATIENT TO COHORT WITH PATIENT THAT IS POSITIVE. MARTY, COLIN AND BRIANNE ARE AWARE. ID WILL ORDER ANOTHER COVID TEST TODAY.
--- NOTE | 2019-11-09 10:51 | Infectious Diseases Prog Note ---
Assessment/Plan Assessment/Plan antibiotics : none A 1. covid 19 pneumonia s/p rx improving positive tests on 3.28.20, 4.3.20, 4.4.20, 4.6.20, 4.13.20, 4.20.20 test negative 4.10.20, 4.23.20 2. COPD 3. asthma 4. CVA 5. seizures P 1. continue off antibiotics 2. continue isolation 3. repeat COVID 19 test Subjective ROS Limited/Unobtainable: Yes Allergies: Coded Allergies: CEFEPIME (Unverified Allergy, Unknown, 11/03/17) LEVOFLOXACIN (Unverified Allergy, Unknown, 11/03/17) PENICILLINS (Unverified Allergy, Unknown, 11/03/17) Objective Vital Signs Last 24 Hour Vital Signs Date Time Temp Pulse Resp B/P (MAP) Pulse Ox O2 Delivery O2 Flow Rate FiO2 11/09/19 09:04 84 124/78 11/09/19 08:00 98.6 84 20 124/78 (93) 98 11/09/19 07:14 99.0 11/09/19 07:00 98 Nasal Cannula 3.0 32 11/09/19 04:00 98.9 88 20 121/87 (98) 94 11/09/19 00:00 98.9 95 19 118/98 (105) 94 11/08/19 21:00 Nasal Cannula 2.0 11/08/19 20:44 96 Nasal Cannula 3.0 32 11/08/19 20:30 121/89 (100) 11/08/19 20:09 76 134/78 11/08/19 20:00 99.0 100 19 108/100 (103) 96 11/08/19 16:00 98.7 80 20 122/74 (90) 98 11/08/19 11:59 98.8 84 20 115/75 (88) 98 Height (Feet): 5 Height (Inches): 5.00 Weight (Pounds): 381 Laboratory Tests Test 11/09/19 04:00 11/09/19 09:15 White Blood Count 8.3 K/UL (4.8-10.8) Red Blood Count 4.12 M/UL (4.20-5.40) L Hemoglobin 11.8 G/DL (12.0-16.0) L Hematocrit 36.5 % (37.0-47.0) L Mean Corpuscular Volume 89 FL (80-99) Mean Corpuscular Hemoglobin 28.8 PG (27.0-31.0) Mean Corpuscular Hemoglobin Concent 32.4 G/DL (32.0-36.0) Red Cell Distribution Width 17.8 % (11.6-14.8) H Platelet Count 321 K/UL (150-450) Mean Platelet Volume 5.7 FL (6.5-10.1) L Neutrophils (%) (Auto) 55.3 % (45.0-75.0) Lymphocytes (%) (Auto) 27.4 % (20.0-45.0) Monocytes (%) (Auto) 12.4 % (1.0-10.0) H Eosinophils (%) (Auto) 2.4 % (0.0-3.0) Basophils (%) (Auto) 2.6 % (0.0-2.0) H Sodium Level 138 MMOL/L (136-145) Potassium Level 4.3 MMOL/L (3.5-5.1) Chloride Level 99 MMOL/L (98-107) Carbon Dioxide Level 36 MMOL/L (21-32) H Anion Gap 3 mmol/L (5-15) L Blood Urea Nitrogen 12 mg/dL (7-18) Creatinine 1.2 MG/DL (0.55-1.30) Estimat Glomerular Filtration Rate 53.9 mL/min (>60) Glucose Level 111 MG/DL (74-106) H Calcium Level 10.0 MG/DL (8.5-10.1) Arterial Blood pH 7.379 (7.350-7.450) Arterial Blood Partial Pressure CO2 57.8 mmHg (35.0-45.0) *H Arterial Blood Partial Pressure O2 97.5 mmHg (75.0-100.0) Arterial Blood HCO3 33.3 mmol/L (22.0-26.0) H Arterial Blood Oxygen Saturation 96.8 % (95-100) Arterial Blood Base Excess 6.6 (-2-2) H Omero Test Positive Current Medications Medications (Trade) Dose Ordered Sig/Saira Route PRN Reason Start Time Stop Time Status Last Admin Dose Admin Acetaminophen (Tylenol) 650 mg Q6H PRN ORAL MILD/TEMP 10/25/19 20:30 11/09/19 20:29 11/06/19 13:45 Ascorbic Acid (Vitamin C) 500 mg EVERY 12 HOURS ORAL 10/25/19 21:00 11/12/19 14:59 11/09/19 09:03 Atorvastatin Calcium (Lipitor) 10 mg BEDTIME ORAL 10/25/19 21:00 01/09/20 20:59 11/08/19 20:10 Carvedilol (Coreg) 12.5 mg EVERY 12 HOURS ORAL 10/25/19 21:00 11/19/19 20:59 11/09/19 09:04 Cinacalcet (Sensipar) 30 mg DAILY ORAL 10/26/19 09:00 01/09/20 08:59 11/08/19 09:17 Dextrose/ Electrolytes 1,000 ml @ 75 mls/hr [id number] IV 10/28/19 23:00 11/27/19 22:59 11/08/19 20:14 Duloxetine HCl (Cymbalta) 60 mg DAILY ORAL 10/26/19 09:00 01/09/20 08:59 11/09/19 09:03 Ferrous Sulfate (Feosol) 325 mg TID ORAL 10/26/19 09:00 01/09/20 08:59 11/09/19 09:03 Folic Acid (Folate) 1 mg DAILY ORAL 10/26/19 09:00 11/10/19 08:59 11/08/19 09:17 Guaifenesin (Mucinex ER) 600 mg EVERY 12 HOURS ORAL 10/25/19 21:00 01/13/20 08:59 11/09/19 09:04 Guaifenesin (Robitussin) 100 mg Q4H PRN ORAL cough 10/25/19 20:30 01/08/20 20:29 Hydralazine HCl (Apresoline) 25 mg Q6H PRN ORAL SBP above 150 and DBP above 90 11/02/19 02:00 01/31/20 01:59 Ipratropium [place] (Atrovent Inh) 1 puffs BID INH 10/26/19 09:00 11/24/19 08:59 11/09/19 09:05 Lacosamide (Vimpat) 100 mg Q12HR ORAL 10/25/19 21:00 01/09/20 08:59 11/09/19 09:04 Lidocaine (Lidoderm 5% PATCH) 3 patch DAILY TDERMAL 10/26/19 09:00 01/09/20 08:59 11/09/19 09:05 Magnesium Hydroxide (Mom) 30 ml DAILY PRN ORAL Constipation 10/26/19 09:00 11/09/19 23:29 Metoclopramide HCl (Reglan) 5 mg Q6H PRN IVP Nausea & Vomiting 11/05/19 12:58 12/05/19 12:57 Ondansetron HCl (Zofran) 4 mg Q4HR PRN IVP Nausea & Vomiting 10/30/19 22:30 11/29/19 22:29 11/05/19 08:59 Pantoprazole (Protonix) 40 mg EVERY 12 HOURS ORAL 10/25/19 21:00 11/10/19 08:59 11/09/19 09:03 Pregabalin (Lyrica) 150 mg Q8HR ORAL 10/25/19 22:00 11/10/19 05:59 11/09/19 06:44 Huma Serna MD Nov 09, 2019 10:51
--- NOTE | 2019-11-09 11:15 | Pulmonology Progress Note ---
Assessment/Plan Assessment/Plan IMPRESSION: Pulmonary infection, asthma, wheezing, history of VRE, COVID positive, stroke. chronic respiratory failure; hypercapnia PLAN respiratory care as is AGB improved off antibiotics; ID care reviewed DVT prophylaxis consider trial of Diamox dc planning per primary pulmonary colon to continue as is impression, plan, and exam edited and reviewed in detail care discussed with RN Subjective ROS Limited/Unobtainable: Yes Constitutional: Denies: fever, chills Gastrointestinal/Abdominal: Denies: nausea, vomiting, diarrhea Genitourinary: Reports: last menstrual period Musculoskeletal: Denies: pain Allergies: Coded Allergies: CEFEPIME (Unverified Allergy, Unknown, 11/03/17) LEVOFLOXACIN (Unverified Allergy, Unknown, 11/03/17) PENICILLINS (Unverified Allergy, Unknown, 11/03/17) All Systems: reviewed and negative except above Subjective care noted no distress noted on oxygen /confused/ chronic CO2 retention better awaiting dc to SNF Objective Last 24 Hour Vital Signs Date Time Temp Pulse Resp B/P (MAP) Pulse Ox O2 Delivery O2 Flow Rate FiO2 11/09/19 09:04 84 124/78 11/09/19 08:00 98.6 84 20 124/78 (93) 98 11/09/19 07:14 99.0 11/09/19 07:00 98 Nasal Cannula 3.0 32 11/09/19 04:00 98.9 88 20 121/87 (98) 94 11/09/19 00:00 98.9 95 19 118/98 (105) 94 11/08/19 21:00 Nasal Cannula 2.0 11/08/19 20:44 96 Nasal Cannula 3.0 32 11/08/19 20:30 121/89 (100) 11/08/19 20:09 76 134/78 11/08/19 20:00 99.0 100 19 108/100 (103) 96 11/08/19 16:00 98.7 80 20 122/74 (90) 98 11/08/19 11:59 98.8 84 20 115/75 (88) 98 Intake and Output 11/08/19 11/09/19 19:00 07:00 Intake Total 1880 ml 120 ml Balance 1880 ml 120 ml Intake Oral 980 ml 120 ml IV Total 900 ml # Voids 6 2 # Bowel Movements 1 1 Objective WDWN NAD clear breath sounds bilaterally without rhonchi or wheeze [id number] without MRG NABS nontender no HSM no CCE nonfocal reviewed and edited General Appearance: no acute distress HEENT: mucous membranes moist Abdomen: soft, non tender Extremities: no edema Neurologic/Psychiatric: other - sleeping Laboratory Tests 11/09/19 04:00: White Blood Count 8.3, Red Blood Count 4.12L, Hemoglobin 11.8L, Hematocrit 36.5L , Mean Corpuscular Volume 89, Mean Corpuscular Hemoglobin 28.8, Mean Corpuscular Hemoglobin Concent 32.4, Red Cell Distribution Width 17.8H, Platelet Count 321, Mean Platelet Volume 5.7L, Neutrophils (%) (Auto) 55.3, Lymphocytes (%) (Auto) 27.4, Monocytes (%) (Auto) 12.4H, Eosinophils (%) (Auto) 2.4, Basophils (%) (Auto) 2.6H, Sodium Level 138, Potassium Level 4.3, Chloride Level 99, Carbon Dioxide Level 36H, Anion Gap 3L, Blood Urea Nitrogen 12, Creatinine 1.2, Estimat Glomerular Filtration Rate 53.9, Glucose Level 111H, Calcium Level 10.0 11/09/19 09:15: Arterial Blood pH 7.379, Arterial Blood Partial Pressure CO2 57.8*H, Arterial Blood Partial Pressure O2 97.5, Arterial Blood HCO3 33.3H, Arterial Blood Oxygen Saturation 96.8, Arterial Blood Base Excess 6.6H, Omero Test Positive Current Medications Medications (Trade) Dose Ordered Sig/Saira Route PRN Reason Start Time Stop Time Status Last Admin Dose Admin Acetaminophen (Tylenol) 650 mg Q6H PRN ORAL MILD/TEMP 10/25/19 20:30 11/09/19 20:29 11/06/19 13:45 Ascorbic Acid (Vitamin C) 500 mg EVERY 12 HOURS ORAL 10/25/19 21:00 11/12/19 14:59 11/09/19 09:03 Atorvastatin Calcium (Lipitor) 10 mg BEDTIME ORAL 10/25/19 21:00 01/09/20 20:59 11/08/19 20:10 Carvedilol (Coreg) 12.5 mg EVERY 12 HOURS ORAL 10/25/19 21:00 11/19/19 20:59 11/09/19 09:04 Cinacalcet (Sensipar) 30 mg DAILY ORAL 10/26/19 09:00 01/09/20 08:59 11/08/19 09:17 Dextrose/ Electrolytes 1,000 ml @ 75 mls/hr [id number] IV 10/28/19 23:00 11/27/19 22:59 11/08/19 20:14 Duloxetine HCl (Cymbalta) 60 mg DAILY ORAL 10/26/19 09:00 01/09/20 08:59 11/09/19 09:03 Ferrous Sulfate (Feosol) 325 mg TID ORAL 10/26/19 09:00 01/09/20 08:59 11/09/19 09:03 Folic Acid (Folate) 1 mg DAILY ORAL 10/26/19 09:00 11/10/19 08:59 11/08/19 09:17 Guaifenesin (Mucinex ER) 600 mg EVERY 12 HOURS ORAL 10/25/19 21:00 01/13/20 08:59 11/09/19 09:04 Guaifenesin (Robitussin) 100 mg Q4H PRN ORAL cough 10/25/19 20:30 01/08/20 20:29 Hydralazine HCl (Apresoline) 25 mg Q6H PRN ORAL SBP above 150 and DBP above 90 11/02/19 02:00 01/31/20 01:59 Ipratropium [place] (Atrovent Inh) 1 puffs BID INH 10/26/19 09:00 11/24/19 08:59 11/09/19 09:05 Lacosamide (Vimpat) 100 mg Q12HR ORAL 10/25/19 21:00 01/09/20 08:59 11/09/19 09:04 Lidocaine (Lidoderm 5% PATCH) 3 patch DAILY TDERMAL 10/26/19 09:00 01/09/20 08:59 11/09/19 09:05 Magnesium Hydroxide (Mom) 30 ml DAILY PRN ORAL Constipation 10/26/19 09:00 11/09/19 23:29 Metoclopramide HCl (Reglan) 5 mg Q6H PRN IVP Nausea & Vomiting 11/05/19 12:58 12/05/19 12:57 Ondansetron HCl (Zofran) 4 mg Q4HR PRN IVP Nausea & Vomiting 10/30/19 22:30 11/29/19 22:29 11/05/19 08:59 Pantoprazole (Protonix) 40 mg EVERY 12 HOURS ORAL 10/25/19 21:00 11/10/19 08:59 11/09/19 09:03 Pregabalin (Lyrica) 150 mg Q8HR ORAL 10/25/19 22:00 11/10/19 05:59 11/09/19 06:44 Darrel Schuster MD Nov 09, 2019 11:15
--- NOTE | 2019-11-09 11:34 | NUR ---
DISCHARGE PLANNING DR CHANG GAVE VERBAL DISCHARGE ORDER. NOTED AND CARRIED OUT. PATIENT HAS BEEN REFERRED BACK TO [facility] P: [phone] F: [phone] Addendum: 11/09/19 at 1438 by TIMOTEO GRIFFIN LVN N[employer] FINISHER FOLLOW UP CALL MADE TO [facility]. ADMISSIONS CURRENTLY UNAVAILABLE. LEFT REQUEST FOR CALL BACK.
[2019-11-09 12:00] VITALS: BP 96/57
[2019-11-09] MEDS: D5W w/KCl 20mEq 1,000 ML IV SCH (13:22)
--- NOTE | 2019-11-09 14:46 | NUR ---
DISCHARGE PLAN PATIENT ACCEPTED TO RETURN TO [facility] TO BED ASSIGNMENT [facility]-A SKILLED CARE [phone] FOR NURSE TO NURSE REPORT [facility] TRANSPORTATION SCHEDULED WITH [facility] @ EXT 5137 WITH ETA @ 1600 PM PATIENTS DPOA/SISTER MEAGHAN HERNANDEZ NOTIFIED AND IS AWARE OF PATIENTS DISCHARGE AND TRANSFER TO [facility] [address] [place] [id number]
[2019-11-09] MEDS ORDERED: ACETAMINOPHEN325 M1 ORAL (15:26)
[2019-11-09] MEDS ORDERED: ASCORBIC ACID500 MG ORAL (15:26)
[2019-11-09] MEDS ORDERED: CARVEDILOL12.5 MG ORAL (15:27)
[2019-11-09] MEDS ORDERED: MUCINEX100 MG PO (15:28)
[2019-11-09] MEDS ORDERED: LYRICA75 M1 ORAL (15:28)
--- NOTE | 2019-11-09 15:54 | NUR ---
NURSE NOTES: report given to candelario @ [facility]. Belinda, daughter made aware of the discharge.
[2019-11-09 16:00] VITALS: BP_SYST 115; BP_SYST 97; BP_DIAS 52; BP_DIAS 80
--- NOTE | 2019-11-09 17:13 | NUR ---
NURSE NOTES: discharged to [facility]. personal belongings noted. removed IV heplock. applied triad cream and covered with optifoam on sacral as prophylactic. in stable condition.
--- NOTE | 2019-11-10 05:30 | Progress Note ---
DATE: 11/09/2019 CARDIOLOGY PROGRESS NOTE SUBJECTIVE: Condition has stabilized following COVID-19 pneumonia. She is on low flow oxygen which is at baseline for her due to COPD. PHYSICAL EXAMINATION: VITAL SIGNS: Blood pressure stable, no hypoxia. LUNGS: Few rhonchi. CARDIAC: Regular. ABDOMEN: Soft. EXTREMITIES: No edema. LABORATORY DATA: White count 8, hemoglobin 12. Potassium 4.3, BUN 12, creatinine 1.2. ABG, 7.38, 58, 97. RECOMMENDATIONS: 1. Decrease oxygen . 2. Continue to monitor respiratory parameters. 3. Stable for discharge to half-way facility. 4. Remains high risk; however due to multiorgan system with significant cardiopulmonary component. Carlos Eduardo Andino M.D. DR: Juan C JOB#: [id number] CC:
== END 2019-11-09 17:15 | DRG 177 ==
LOC: EDBD 16:44 → EDBEDREQ 17:07 → EMR 17:20 → EDBEDREQ 18:18 → 2W 18:36 → 4E 10-25 20:13
DX: U07.1 COVID-19 (principal); J12.89 Other viral pneumonia; J96.91 Respiratory failure, unspecified with hypoxia; R53.2 Functional quadriplegia; E43 Unspecified severe protein-calorie malnutrition; G40.89 Other seizures; I50.32 Chronic diastolic (congestive) heart failure; E44.1 Mild protein-calorie malnutrition; K92.2 Gastrointestinal hemorrhage, unspecified; E87.6 Hypokalemia; I11.0 Hypertensive heart disease with heart failure; J44.9 Chronic obstructive pulmonary disease, unspecified; I20.9 Angina pectoris, unspecified; E66.01 Morbid (severe) obesity due to excess calories; Z85.3 Personal history of malignant neoplasm of breast; Z88.1 Allergy status to other antibiotic agents; Z88.0 Allergy status to penicillin; Z90.11 Acquired absence of right breast and nipple; G62.9 Polyneuropathy, unspecified; Z87.891 Personal history of nicotine dependence; I73.9 Peripheral vascular disease, unspecified; Z86.73 Personal history of transient ischemic attack (TIA), and cerebral infarction without residual deficits; E83.42 Hypomagnesemia; I27.20 Pulmonary hypertension, unspecified; I49.1 Atrial premature depolarization; M19.90 Unspecified osteoarthritis, unspecified site
CPT/HCPCS: 36415; 36600; 71045; 74018; 80048; 80053; 82270; 82550; 82553; 82803; 82962; 83605; 83735; 83880; 84484; 85007; 85025; 85610; 85730; 86140; 86710; 86850; 86900; 86901; 87040; 87081; 87635; 93005; 94640; 94664; 96372; 99285; J2405; J8499